=== PATIENT | female | born 1975 | race Caucasian/White ===

== ENCOUNTER 2017-07-10 09:03 | Inpatient (IN) | payer MEDICAID ==
[~2017-07-10] VITALS: Ht 167.6 cm; Wt 55.1 kg
[~2017-07-10 09:03] MED LIST: CARB-101 PO; DIPH-423 PO; HYDR-569 PO; IBUP-2264 PO; MULT-785 PO; ONDA4TAB6 PO; SERT50TA PO
[2017-07-10 09:38] LABS: BASOPHILS # (AUTO) 0.1 X10'3 (0-0.2); BASOPHILS % (AUTO) 0.9 % (0-1); EOSINOPHILS % (AUTO) 0.4 % (0-6); HEMATOCRIT 43.6 % (35.0-45.0); HEMOGLOBIN 14.7 g/dl (12.0-16.0); LYMPHOCYTES # (AUTO) 1.9 X10'3 (1.1-4.8); LYMPHOCYTES % (AUTO) 18.4 % (21-51); MEAN CORPUSCULAR HEMOGLOBIN 34.5 PG (27.0-31.0); MEAN CORPUSCULAR HGB CONC 33.8 % (33.0-36.5); MEAN PLATELET VOLUME 7.4 FL (7.4-10.4); MONOCYTES # (AUTO) 0.6 X10'3 (0-0.9); MONOCYTES % (AUTO) 5.7 % (2-12); NEUTROPHILS # (AUTO) 7.6 X10'3 (1.8-7.7); NEUTROPHILS % (AUTO) 74.6 % (42-75); PLATELET COUNT 278 X10'3 (140-440); RED BLOOD COUNT 4.27 X10'6 (4.20-5.60); RED CELL DISTRIBUTION WIDTH 14.2 % (11.5-14.5); WHITE BLOOD COUNT 10.2 X10'3 (4.5-11.0)
[2017-07-10 09:55] LABS: ALANINE AMINOTRANSFERASE 34 U/L (12-78); ALBUMIN 4.2 G/DL (3.4-5.0); ALBUMIN/GLOBULIN RATIO 1.1 (1.1-1.5); ALKALINE PHOSPHATASE 75 IU/L (46-116); AMYLASE 243 U/L (25-115); ANION GAP 11 (8-16); ASPARTATE AMINO TRANSFERASE 20 U/L (10-37); BILIRUBIN,TOTAL 0.3 MG/DL (0.1-1.0); BLOOD UREA NITROGEN 6 MG/DL (7-18); BUN/CREATININE RATIO 6.7 (6.6-38.0); CHLORIDE 100 MMOL/L (99-107); GLUCOSE 96 MG/DL (70-104); LIPASE 1371 U/L (73-393); POTASSIUM 3.6 MMOL/L (3.5-5.1); SODIUM 136 MMOL/L (135-145); TOTAL CARBON DIOXIDE 24.6 MMOL/L (24-32); TOTAL PROTEIN 7.9 G/DL (6.4-8.2); eGFR 70 ML/MIN
[2017-07-10 10:18] LABS: CLARITY,URINE Clear (Clear); COLOR,URINE Yellow (Yellow); GLUCOSE, URINE Negative (Neg); KETONES,URINE Negative (Neg); LEUKOCYTE ESTERASE ,URINE Negative (Neg); NITRITES, URINE Negative (Neg); OCCULT BLOOD,URINE Negative (Neg); PROTEIN,URINE Negative (Neg)
[2017-07-10 10:20] LABS: URINE HCG NEGATIVE (NEG)
[2017-07-10 10:24] LABS: UA COLLECTION TYPE CLN CATCH MIDSTREAM
[2017-07-10] MEDS ORDERED: ondansetron/PF 4mg/2ml inj IV ONE (10:30)
[2017-07-10] MEDS ORDERED: normal saline 1000ML IV soln IVB ONE (10:30)
[2017-07-10] MEDS ORDERED: diphenhydrAMINE 25mg capsule PO PRN (11:15)
[2017-07-10] MEDS ORDERED: acetaminophen 325mg tablet PO PRN (11:15)
[2017-07-10] MEDS ORDERED: HYDROcodone/acetaminophen 5mg/325mg tablet PO PRN (11:15)
[2017-07-10] MEDS ORDERED: magnesium hydroxide 30ml (MOM) UD suspension PO PRN (11:15)
[2017-07-10] MEDS ORDERED: potassium Cl 40MEQ/NS 500ml 500 ML IV PRN ×2 (11:15)
[2017-07-10] MEDS ORDERED: mag hydrox/Alum hydrox/simeth 30ml oral suspension PO PRN (11:15)
[2017-07-10] MEDS ORDERED: magnesium 4gm in 100ml NS 100 ML IV PRN (11:15)
[2017-07-10] MEDS ORDERED: potassium Cl 20 mEq SR tablet PO PRN ×2 (11:15)
[2017-07-10] MEDS ORDERED: magnesium 2GM in 50ml NS 50 ML IV PRN (11:15)
[2017-07-10] MEDS ORDERED: ondansetron/PF 4mg/2ml inj IV PRN (11:15)
[2017-07-10] MEDS ORDERED: magnesium Cl slow-release 64mg tablet PO PRN (11:15)
[2017-07-10] MEDS ORDERED: carBAMazepine Ext. Release 200 MG TAB.ER.12H PO SCH (13:00)
[2017-07-10 13:23] LABS: CARBAMAZEPINE (TEGRETOL) < 0.5 UG/ML (4.0-12.0)
[2017-07-10] MEDS: normal saline 1000ml 1,000 ML IV SCH ×2 (13:24→21:11)
[2017-07-10] MEDS ORDERED: LACO100T2 PO (14:02)
[2017-07-10 14:40] VITALS: BP 113/66
[2017-07-10] MEDS ORDERED: carBAMazepine 100mg chewable tablet PO SCH (14:44)
[2017-07-10] MEDS: HYDROmorphone inj. 0.5 MG/0.5 ML DISP.SYRIN IV PRN ×2 (15:57→19:49)
[2017-07-10] MEDS: heparin, porcine 5000 units/ml vial SQ SCH (19:49)
[2017-07-10 20:00] VITALS: BP 107/67
[2017-07-11] VITALS: BP 102/69
[2017-07-11] MEDS: normal saline 1000ml 1,000 ML IV SCH (02:03)
[2017-07-11] MEDS: HYDROmorphone inj. 0.5 MG/0.5 ML DISP.SYRIN IV PRN ×4 (03:38→12:18)
[2017-07-11 06:22] LABS: BASOPHILS # (AUTO) 0.1 X10'3 (0-0.2); BASOPHILS % (AUTO) 0.7 % (0-1); EOSINOPHILS % (AUTO) 0.5 % (0-6); HEMOGLOBIN 11.9 g/dl (12.0-16.0); LYMPHOCYTES % (AUTO) 24.5 % (21-51); MEAN CORPUSCULAR HEMOGLOBIN 33.6 PG (27.0-31.0); MEAN CORPUSCULAR VOLUME 101.7 FL (78-98); MEAN PLATELET VOLUME 7.7 FL (7.4-10.4); MONOCYTES # (AUTO) 0.5 X10'3 (0-0.9); MONOCYTES % (AUTO) 5.9 % (2-12); NEUTROPHILS # (AUTO) 5.5 X10'3 (1.8-7.7); NEUTROPHILS % (AUTO) 68.4 % (42-75); PLATELET COUNT 204 X10'3 (140-440); RED BLOOD COUNT 3.54 X10'6 (4.20-5.60); RED CELL DISTRIBUTION WIDTH 14.3 % (11.5-14.5)
[2017-07-11 06:57] LABS: ALANINE AMINOTRANSFERASE 27 U/L (12-78); ALBUMIN 3.2 G/DL (3.4-5.0); ALBUMIN/GLOBULIN RATIO 1.2 (1.1-1.5); ALKALINE PHOSPHATASE 48 IU/L (46-116); ANION GAP 9 (8-16); ASPARTATE AMINO TRANSFERASE 12 U/L (10-37); BILIRUBIN,TOTAL 0.3 MG/DL (0.1-1.0); BLOOD UREA NITROGEN 8 MG/DL (7-18); BUN/CREATININE RATIO 11.6 (6.6-38.0); CALCIUM 8.8 MG/DL (8.5-10.1); CHLORIDE 109 MMOL/L (99-107); CREATININE 0.69 MG/DL (0.40-0.90); GLUCOSE 93 MG/DL (70-104); POTASSIUM 4.3 MMOL/L (3.5-5.1); SODIUM 141 MMOL/L (135-145); TOTAL CARBON DIOXIDE 23.4 MMOL/L (24-32); TOTAL PROTEIN 5.9 G/DL (6.4-8.2); eGFR > 90 ML/MIN
[2017-07-11 07:00] VITALS: BP 109/73
[2017-07-11] MEDS: heparin, porcine 5000 units/ml vial SQ SCH (07:42)
[2017-07-11] MEDS ORDERED: K and/or MAG REPLACEMENT MC SCH (08:00)
[2017-07-11] MEDS ORDERED: sertraline 50mg tablet PO SCH (08:00)
[2017-07-11 09:57] LABS: LIPASE 518 U/L (73-393)
[2017-07-11 11:00] VITALS: BP 113/71
== END 2017-07-11 13:28 | disposition home or self-care (01) | DRG 282 ==
LOC: ER 09:03 → ED HOLD 11:11 → EDBEDREQ 13:55 → MED 3N 14:20
PROVIDERS: ADMIT Internal Medicine; ATTEND Emergency Medicine
DX: K85.90 Acute pancreatitis without necrosis or infection, unspecified (principal); F17.210 Nicotine dependence, cigarettes, uncomplicated; K86.1 Other chronic pancreatitis; G40.909 Epilepsy, unspecified, not intractable, without status epilepticus; F12.90 Cannabis use, unspecified, uncomplicated; G89.29 Other chronic pain; M54.9 Dorsalgia, unspecified; G43.909 Migraine, unspecified, not intractable, without status migrainosus; J45.909 Unspecified asthma, uncomplicated; Z90.710 Acquired absence of both cervix and uterus; Z56.0 Unemployment, unspecified; Z88.1 Allergy status to other antibiotic agents; Z71.6 Tobacco abuse counseling; Z79.899 Other long term (current) drug therapy
CPT/HCPCS: 36415; 76700; 80053; 80156; 81003; 81025; 82150; 83690; 83735; 85025; 87070; 96374; 99285; J1170; J1644; J2270; J2405; J7030

== ENCOUNTER 2017-07-21 13:15 | Emergency (ER) | payer MEDICAID ==
[~2017-07-21] VITALS: Ht 170.2 cm; Wt 50.9 kg
[~2017-07-21 13:15] MED LIST changes: -CARB-101 PO; +HYDR-565 PO; +LACO100T2 PO; +ONDA4TAB9 PO
[2017-07-21] MEDS ORDERED: ondansetron 4mg rapidly disintigrating tab PO ONE (14:05)
[2017-07-21] MEDS ORDERED: pantoprazole 40MG/NS 100ML BAG 100 ML IV SCH (14:18)
[2017-07-21] MEDS ORDERED: normal saline 1000ml 1,000 ML IV ONE (14:20)
[2017-07-21] MEDS ORDERED: pantoprazole 40 MG vial IV ONE (14:20)
[2017-07-21 14:28] LABS: BASOPHILS % (AUTO) 0.3 % (0-1); EOSINOPHILS % (AUTO) 0 % (0-6); HEMATOCRIT 42.4 % (35.0-45.0); HEMOGLOBIN 14.2 g/dl (12.0-16.0); LYMPHOCYTES # (AUTO) 1.3 X10'3 (1.1-4.8); LYMPHOCYTES % (AUTO) 15.1 % (21-51); MEAN CORPUSCULAR HGB CONC 33.5 % (33.0-36.5); MEAN CORPUSCULAR VOLUME 101.4 FL (78-98); MEAN PLATELET VOLUME 7.2 FL (7.4-10.4); MONOCYTES # (AUTO) 0.5 X10'3 (0-0.9); MONOCYTES % (AUTO) 5.5 % (2-12); NEUTROPHILS # (AUTO) 6.9 X10'3 (1.8-7.7); NEUTROPHILS % (AUTO) 79.1 % (42-75); PLATELET COUNT 292 X10'3 (140-440); RED BLOOD COUNT 4.18 X10'6 (4.20-5.60); RED CELL DISTRIBUTION WIDTH 14.3 % (11.5-14.5); WHITE BLOOD COUNT 8.8 X10'3 (4.5-11.0)
[2017-07-21 14:37] LABS: INR 1.1 INR; PROTHROMBIN TIME 11.1 SECONDS (9.0-12.0)
[2017-07-21 14:42] LABS: ALANINE AMINOTRANSFERASE 29 U/L (12-78); ALBUMIN 4.2 G/DL (3.4-5.0); ALBUMIN/GLOBULIN RATIO 1.4 (1.1-1.5); ALKALINE PHOSPHATASE 66 IU/L (46-116); ANION GAP 11 (8-16); ASPARTATE AMINO TRANSFERASE 17 U/L (10-37); BILIRUBIN,TOTAL 0.4 MG/DL (0.1-1.0); BLOOD UREA NITROGEN 7 MG/DL (7-18); BUN/CREATININE RATIO 8.8 (6.6-38.0); CALCIUM 9.4 MG/DL (8.5-10.1); CHLORIDE 110 MMOL/L (99-107); GLUCOSE 101 MG/DL (70-104); POTASSIUM 3.8 MMOL/L (3.5-5.1); SODIUM 145 MMOL/L (135-145); TOTAL PROTEIN 7.2 G/DL (6.4-8.2); eGFR 80 ML/MIN
[2017-07-21] MEDS ORDERED: HYDROmorphone 1 mg/ml syringe IV ONE ×2 (14:45→15:25)
[2017-07-21] MEDS ORDERED: ondansetron/PF 4mg/2ml inj IV ONE (15:30)
[2017-07-21 15:59] LABS: LIPASE 124 U/L (73-393)
[2017-07-21 16:43] LABS: OCCULT BLOOD STOOL NEGATIVE (Neg)
[2017-07-21 16:51] VITALS: BP 127/70
[2017-07-21 16:56] LABS: CLARITY,URINE Clear (Clear); COLOR,URINE Yellow (Yellow); GLUCOSE, URINE Negative (Neg); KETONES,URINE 80 mg/dl (Neg); LEUKOCYTE ESTERASE ,URINE Trace (Neg); NITRITES, URINE Negative (Neg); OCCULT BLOOD,URINE Negative (Neg); PROTEIN,URINE Negative (Neg)
[2017-07-21 17:15] LABS: UA COLLECTION TYPE CLN CATCH MIDSTREAM
[2017-07-21 17:17] LABS: BACTERIA,URINE NONE SEEN /HPF (Neg); MUCUS STRANDS FEW /LPF (Neg); RBC,URINE 0-2 /HPF (0-2); SQUAMOUS EPITHELIAL CELL,UR FEW /LPF (FEW); WBC,URINE 0-4 /HPF (0-4)
== END 2017-07-21 16:56 | disposition left against medical advice (07) ==
LOC: ER 13:17
DX: K92.0 Hematemesis (principal); J45.909 Unspecified asthma, uncomplicated; G89.29 Other chronic pain; G43.909 Migraine, unspecified, not intractable, without status migrainosus; F12.10 Cannabis abuse, uncomplicated; Z76.5 Malingerer [conscious simulation]; Z90.710 Acquired absence of both cervix and uterus; Z56.0 Unemployment, unspecified; Z79.899 Other long term (current) drug therapy
CPT/HCPCS: 36415; 80053; 81001; 82272; 83690; 85025; 85610; 87088; 96365; 96375; 96376; 99284; C9113; J1170; J2405; J7030

== ENCOUNTER 2017-11-06 16:03 | Emergency (ER) | payer MEDICAID ==
[~2017-11-06] VITALS: Ht 167.6 cm; Wt 55.0 kg
[~2017-11-06 16:03] MED LIST changes: -DIPH-423 PO; -HYDR-565 PO; -HYDR-569 PO; -ONDA4TAB9 PO
[2017-11-06 16:52] LABS: BASOPHILS # (AUTO) 0.1 X10'3 (0-0.2); BASOPHILS % (AUTO) 0.5 % (0-1); EOSINOPHILS # (AUTO) 0.1 X10'3 (0-0.9); EOSINOPHILS % (AUTO) 1.3 % (0-6); HEMATOCRIT 37.5 % (35.0-45.0); LYMPHOCYTES # (AUTO) 2.4 X10'3 (1.1-4.8); MEAN CORPUSCULAR HEMOGLOBIN 34.6 PG (27.0-31.0); MEAN CORPUSCULAR HGB CONC 34.7 % (33.0-36.5); MEAN CORPUSCULAR VOLUME 99.5 FL (78-98); MEAN PLATELET VOLUME 7.3 FL (7.4-10.4); MONOCYTES # (AUTO) 0.5 X10'3 (0-0.9); MONOCYTES % (AUTO) 5.7 % (2-12); NEUTROPHILS # (AUTO) 6.4 X10'3 (1.8-7.7); NEUTROPHILS % (AUTO) 67.5 % (42-75); PLATELET COUNT 319 X10'3 (140-440); RED BLOOD COUNT 3.77 X10'6 (4.20-5.60); RED CELL DISTRIBUTION WIDTH 13.6 % (11.5-14.5); WHITE BLOOD COUNT 9.4 X10'3 (4.5-11.0)
[2017-11-06 16:59] LABS: CLARITY,URINE SLIGHTLY CLOUDY (Clear); COLOR,URINE STRAW (Yellow); GLUCOSE, URINE NEGATIVE (Neg); KETONES,URINE NEGATIVE (Neg); LEUKOCYTE ESTERASE ,URINE NEGATIVE (Neg); NITRITES, URINE NEGATIVE (Neg); OCCULT BLOOD,URINE NEGATIVE (Neg); PROTEIN,URINE NEGATIVE (Neg); UROBILINOGEN,URINE 0.2 E.U/dL (0.2-1.0)
[2017-11-06 17:00] LABS: PROTHROMBIN TIME 10.5 SECONDS (9.0-12.0)
[2017-11-06 17:03] LABS: UA COLLECTION TYPE CLN CATCH MIDSTREAM
[2017-11-06 17:06] LABS: MUCUS STRANDS NONE SEEN /LPF (Neg); SQUAMOUS EPITHELIAL CELL,UR MANY /LPF (FEW)
[2017-11-06 17:07] LABS: BACTERIA,URINE 1+ /HPF (Neg); RBC,URINE NONE SEEN /HPF (0-2); WBC,URINE 0-4 /HPF (0-4)
[2017-11-06 17:07] LABS: ALANINE AMINOTRANSFERASE 23 U/L (12-78); ALBUMIN 3.8 G/DL (3.4-5.0); ALBUMIN/GLOBULIN RATIO 1.1 (1.1-1.5); ALKALINE PHOSPHATASE 74 IU/L (46-116); ANION GAP 8 (8-16); ASPARTATE AMINO TRANSFERASE 14 U/L (10-37); BILIRUBIN,TOTAL 0.3 MG/DL (0.1-1.0); BLOOD UREA NITROGEN 7 MG/DL (7-18); BUN/CREATININE RATIO 9.2 (6.6-38.0); CALCIUM 9.2 MG/DL (8.5-10.1); CHLORIDE 99 MMOL/L (99-107); CREATININE 0.76 MG/DL (0.40-0.90); GLUCOSE 89 MG/DL (70-104); LIPASE 544 U/L (73-393); POTASSIUM 3.6 MMOL/L (3.5-5.1); SODIUM 136 MMOL/L (135-145); TOTAL CARBON DIOXIDE 29.5 MMOL/L (24-32); TOTAL PROTEIN 7.2 G/DL (6.4-8.2); eGFR 85 ML/MIN
[2017-11-06] MEDS ORDERED: morphine 4 MG/ML inj SYRINge IV ONE ×2 (18:15→19:05)
[2017-11-06] MEDS ORDERED: ondansetron/PF 4mg/2ml inj IV ONE (18:15)
[2017-11-06] MEDS ORDERED: proCHLORperazine 10 MG/2 ml inj IV ONE (18:15)
[2017-11-06] MEDS ORDERED: normal saline 1000ML IV soln IVB ONE (18:15)
[2017-11-06] MEDS ORDERED: diphenhydrAMINE 50 mg/ml inj IV ONE (18:15)
[2017-11-06] MEDS ORDERED: pantoprazole 40 MG vial IV ONE (18:15)
[2017-11-06 20:09] VITALS: BP 108/65
== END 2017-11-06 20:17 | disposition home or self-care (01) ==
LOC: ER 16:03
DX: K85.90 Acute pancreatitis without necrosis or infection, unspecified (principal); R10.12 Left upper quadrant pain; R11.2 Nausea with vomiting, unspecified; E86.0 Dehydration; F17.200 Nicotine dependence, unspecified, uncomplicated; F12.10 Cannabis abuse, uncomplicated; G89.29 Other chronic pain; J45.909 Unspecified asthma, uncomplicated; G43.909 Migraine, unspecified, not intractable, without status migrainosus; Z90.710 Acquired absence of both cervix and uterus; Z79.899 Other long term (current) drug therapy; Z56.0 Unemployment, unspecified
CPT/HCPCS: 36415; 80053; 81001; 83690; 84484; 85025; 85610; 93005; 96361; 96374; 96375; 96376; 99285; C9113; J0780; J1200; J2270; J2405; J7030

== ENCOUNTER 2017-11-09 09:44 | Emergency (ER) | payer MEDICAID ==
[~2017-11-09] VITALS: Ht 167.6 cm; Wt 56.0 kg
[2017-11-09 10:07] LABS: CLARITY,URINE CLEAR (Clear); COLOR,URINE STRAW (Yellow); GLUCOSE, URINE NEGATIVE (Neg); KETONES,URINE NEGATIVE (Neg); LEUKOCYTE ESTERASE ,URINE NEGATIVE (Neg); NITRITES, URINE NEGATIVE (Neg); OCCULT BLOOD,URINE NEGATIVE (Neg); PH,URINE 5.5 (4.8-8.0); PROTEIN,URINE NEGATIVE (Neg); UA COLLECTION TYPE CLN CATCH MIDSTREAM; UROBILINOGEN,URINE 0.2 E.U/dL (0.2-1.0)
[2017-11-09 10:12] LABS: BASOPHILS # (AUTO) 0.1 X10'3 (0-0.2); BASOPHILS % (AUTO) 0.7 % (0-1); EOSINOPHILS % (AUTO) 0.4 % (0-6); HEMATOCRIT 40.5 % (35.0-45.0); HEMOGLOBIN 13.8 g/dl (12.0-16.0); MEAN CORPUSCULAR HEMOGLOBIN 34.4 PG (27.0-31.0); MEAN CORPUSCULAR HGB CONC 34.1 % (33.0-36.5); MEAN CORPUSCULAR VOLUME 100.9 FL (78-98); MEAN PLATELET VOLUME 7.1 FL (7.4-10.4); MONOCYTES # (AUTO) 0.4 X10'3 (0-0.9); MONOCYTES % (AUTO) 4.2 % (2-12); NEUTROPHILS # (AUTO) 8.1 X10'3 (1.8-7.7); NEUTROPHILS % (AUTO) 75.7 % (42-75); PLATELET COUNT 323 X10'3 (140-440); RED BLOOD COUNT 4.01 X10'6 (4.20-5.60); WHITE BLOOD COUNT 10.7 X10'3 (4.5-11.0)
[2017-11-09 10:21] LABS: INR 1.1 INR; PROTHROMBIN TIME 11.2 SECONDS (9.0-12.0)
[2017-11-09 10:26] LABS: ALANINE AMINOTRANSFERASE 33 U/L (12-78); ALBUMIN 4.6 G/DL (3.4-5.0); ALBUMIN/GLOBULIN RATIO 1.4 (1.1-1.5); ALKALINE PHOSPHATASE 79 IU/L (46-116); ANION GAP 11 (8-16); ASPARTATE AMINO TRANSFERASE 22 U/L (10-37); BILIRUBIN,TOTAL 0.3 MG/DL (0.1-1.0); BLOOD UREA NITROGEN 5 MG/DL (7-18); CALCIUM 9.7 MG/DL (8.5-10.1); CHLORIDE 99 MMOL/L (99-107); CREATININE 0.83 MG/DL (0.40-0.90); GLUCOSE 88 MG/DL (70-104); POTASSIUM 3.5 MMOL/L (3.5-5.1); SODIUM 138 MMOL/L (135-145); TOTAL CARBON DIOXIDE 28.5 MMOL/L (24-32); TOTAL PROTEIN 7.9 G/DL (6.4-8.2); eGFR 77 ML/MIN
[2017-11-09 10:43] LABS: LIPASE 627 U/L (73-393)
[2017-11-09] MEDS ORDERED: ondansetron/PF 4mg/2ml inj IV ONE ×2 (10:55→13:25)
[2017-11-09] MEDS ORDERED: normal saline 1000ML IV soln IVB ONE (10:55)
[2017-11-09] MEDS ORDERED: morphine 4 MG/ML inj SYRINge IV ONE ×3 (10:55→13:25)
[2017-11-09] MEDS ORDERED: ONDA8TAB6 PO (13:20)
[2017-11-09] MEDS ORDERED: HYDR-3965 PO (13:20)
[2017-11-09 13:51] VITALS: BP 110/89
== END 2017-11-09 13:54 | disposition home or self-care (01) ==
LOC: ER 09:44
DX: K85.90 Acute pancreatitis without necrosis or infection, unspecified (principal); G43.909 Migraine, unspecified, not intractable, without status migrainosus; J45.909 Unspecified asthma, uncomplicated; G89.29 Other chronic pain; F12.10 Cannabis abuse, uncomplicated; Z90.710 Acquired absence of both cervix and uterus; Z56.0 Unemployment, unspecified; Z88.8 Allergy status to other drugs, medicaments and biological substances; Z79.899 Other long term (current) drug therapy
CPT/HCPCS: 36415; 80053; 81003; 83690; 85025; 85610; 96361; 96374; 96375; 96376; 99285; J2270; J2405; J7030

== ENCOUNTER → 2017-11-30 | Emergency (ER) | payer MEDICAID ==
[~2017-11-30] VITALS: Ht 167.6 cm; Wt 56.6 kg
[~2017-11-30] MED LIST changes: +HYDR-3965 PO; +HYDROmorphone 1 mg/ml syringe IV ONE; +NAPR-56 PO; +ONDA8TAB6 PO; +ketorolac trometh. 30mg/ml inj. IV ONE; +morphine 4 MG/ML inj SYRINge IV ONE; +normal saline 1000ML IV soln IVB ONE; +ondansetron/PF 4mg/2ml inj IV ONE
[2017-11-30 16:00] LABS: BASOPHILS # (AUTO) 0.1 X10'3 (0-0.2); BASOPHILS % (AUTO) 0.8 % (0-1); EOSINOPHILS # (AUTO) 0.1 X10'3 (0-0.9); EOSINOPHILS % (AUTO) 0.7 % (0-6); HEMATOCRIT 37.1 % (35.0-45.0); HEMOGLOBIN 12.6 g/dl (12.0-16.0); LYMPHOCYTES # (AUTO) 2.3 X10'3 (1.1-4.8); LYMPHOCYTES % (AUTO) 25.2 % (21-51); MEAN CORPUSCULAR HEMOGLOBIN 34.2 PG (27.0-31.0); MEAN CORPUSCULAR VOLUME 100.8 FL (78-98); MEAN PLATELET VOLUME 7.4 FL (7.4-10.4); MONOCYTES # (AUTO) 0.5 X10'3 (0-0.9); MONOCYTES % (AUTO) 5.2 % (2-12); NEUTROPHILS # (AUTO) 6.3 X10'3 (1.8-7.7); NEUTROPHILS % (AUTO) 68.1 % (42-75); PLATELET COUNT 230 X10'3 (140-440); RED BLOOD COUNT 3.68 X10'6 (4.20-5.60); RED CELL DISTRIBUTION WIDTH 13.9 % (11.5-14.5); WHITE BLOOD COUNT 9.3 X10'3 (4.5-11.0)
[2017-11-30 16:09] LABS: URINE HCG NEGATIVE (NEG)
[2017-11-30 16:10] LABS: CLARITY,URINE CLEAR (Clear); COLOR,URINE STRAW (Yellow); GLUCOSE, URINE NEGATIVE (Neg); KETONES,URINE NEGATIVE (Neg); LEUKOCYTE ESTERASE ,URINE NEGATIVE (Neg); NITRITES, URINE NEGATIVE (Neg); OCCULT BLOOD,URINE NEGATIVE (Neg); PH,URINE 5.5 (4.8-8.0); PROTEIN,URINE NEGATIVE (Neg); UA COLLECTION TYPE CLN CATCH MIDSTREAM; UROBILINOGEN,URINE 0.2 E.U/dL (0.2-1.0)
[2017-11-30 16:14] LABS: ALANINE AMINOTRANSFERASE 20 U/L (12-78); ALBUMIN 3.6 G/DL (3.4-5.0); ALBUMIN/GLOBULIN RATIO 1.1 (1.1-1.5); ALKALINE PHOSPHATASE 80 IU/L (46-116); ANION GAP 7 (8-16); ASPARTATE AMINO TRANSFERASE 14 U/L (10-37); BILIRUBIN,TOTAL 0.3 MG/DL (0.1-1.0); BLOOD UREA NITROGEN 6 MG/DL (7-18); BUN/CREATININE RATIO 7.9 (6.6-38.0); CALCIUM 8.9 MG/DL (8.5-10.1); CHLORIDE 105 MMOL/L (99-107); CREATININE 0.76 MG/DL (0.40-0.90); GLUCOSE 81 MG/DL (70-104); LIPASE 346 U/L (73-393); SODIUM 137 MMOL/L (135-145); TOTAL CARBON DIOXIDE 25.1 MMOL/L (24-32); TOTAL PROTEIN 6.9 G/DL (6.4-8.2); eGFR 85 ML/MIN
[2017-11-30 17:10] VITALS: BP 113/68
== END | disposition home or self-care (01) ==
LOC: ER 15:34
DX: R10.12 Left upper quadrant pain (principal); K86.1 Other chronic pancreatitis; G43.909 Migraine, unspecified, not intractable, without status migrainosus; J45.909 Unspecified asthma, uncomplicated; M54.9 Dorsalgia, unspecified; F12.90 Cannabis use, unspecified, uncomplicated; Z90.710 Acquired absence of both cervix and uterus; Z56.0 Unemployment, unspecified; Z88.8 Allergy status to other drugs, medicaments and biological substances; Z79.899 Other long term (current) drug therapy
CPT/HCPCS: 36415; 80053; 81003; 81025; 82948; 83690; 85025; 93005; 96374; 96375; 99285; J1170; J1885; J2270; J7030

== ENCOUNTER 2018-01-02 13:50 | Emergency (ER) | payer MEDICAID ==
[~2018-01-02] VITALS: Ht 167.6 cm; Wt 58.9 kg
[~2018-01-02 13:50] MED LIST changes: -HYDR-3965 PO; -HYDROmorphone 1 mg/ml syringe IV ONE; -NAPR-56 PO; -ketorolac trometh. 30mg/ml inj. IV ONE; -morphine 4 MG/ML inj SYRINge IV ONE; -normal saline 1000ML IV soln IVB ONE; -ondansetron/PF 4mg/2ml inj IV ONE
[2018-01-02 14:16] LABS: BASOPHILS # (AUTO) 0.1 X10'3 (0-0.2); BASOPHILS % (AUTO) 0.7 % (0-1); EOSINOPHILS # (AUTO) 0.1 X10'3 (0-0.9); HEMATOCRIT 38.1 % (35.0-45.0); HEMOGLOBIN 13.3 g/dl (12.0-16.0); LYMPHOCYTES # (AUTO) 2.3 X10'3 (1.1-4.8); LYMPHOCYTES % (AUTO) 21.8 % (21-51); MEAN CORPUSCULAR HEMOGLOBIN 34.8 PG (27.0-31.0); MEAN CORPUSCULAR HGB CONC 34.7 % (33.0-36.5); MEAN CORPUSCULAR VOLUME 100.1 FL (78-98); MEAN PLATELET VOLUME 7.3 FL (7.4-10.4); MONOCYTES # (AUTO) 0.7 X10'3 (0-0.9); MONOCYTES % (AUTO) 6.6 % (2-12); NEUTROPHILS # (AUTO) 7.3 X10'3 (1.8-7.7); NEUTROPHILS % (AUTO) 69.9 % (42-75); PLATELET COUNT 258 X10'3 (140-440); RED BLOOD COUNT 3.81 X10'6 (4.20-5.60); RED CELL DISTRIBUTION WIDTH 14.5 % (11.5-14.5); WHITE BLOOD COUNT 10.4 X10'3 (4.5-11.0)
[2018-01-02 14:19] LABS: URINE HCG NEGATIVE (NEG)
[2018-01-02 14:23] LABS: INR 1.1 INR
[2018-01-02 14:28] LABS: ALANINE AMINOTRANSFERASE 31 U/L (12-78); ALBUMIN 3.6 G/DL (3.4-5.0); ALBUMIN/GLOBULIN RATIO 1.2 (1.1-1.5); ALKALINE PHOSPHATASE 89 IU/L (46-116); AMYLASE 158 U/L (25-115); ANION GAP 6 (8-16); ASPARTATE AMINO TRANSFERASE 21 U/L (10-37); BILIRUBIN,TOTAL 0.3 MG/DL (0.1-1.0); BLOOD UREA NITROGEN 10 MG/DL (7-18); BUN/CREATININE RATIO 11.4 (6.6-38.0); CALCIUM 8.4 MG/DL (8.5-10.1); CHLORIDE 102 MMOL/L (99-107); CREATININE 0.88 MG/DL (0.40-0.90); GLUCOSE 92 MG/DL (70-104); LIPASE 561 U/L (73-393); POTASSIUM 4.4 MMOL/L (3.5-5.1); SODIUM 135 MMOL/L (135-145); TOTAL CARBON DIOXIDE 26.8 MMOL/L (24-32); TOTAL PROTEIN 6.7 G/DL (6.4-8.2); eGFR 71 ML/MIN
[2018-01-02 14:29] LABS: HCG SERUM QL NEGATIVE
[2018-01-02 14:29] LABS: CLARITY,URINE CLEAR (Clear); COLOR,URINE STRAW (Yellow); GLUCOSE, URINE NEGATIVE (Neg); KETONES,URINE NEGATIVE (Neg); LEUKOCYTE ESTERASE ,URINE NEGATIVE (Neg); NITRITES, URINE NEGATIVE (Neg); OCCULT BLOOD,URINE NEGATIVE (Neg); PH,URINE 6.5 (4.8-8.0); PROTEIN,URINE NEGATIVE (Neg); UROBILINOGEN,URINE 0.2 E.U/dL (0.2-1.0)
[2018-01-02 14:35] LABS: UA COLLECTION TYPE CLN CATCH MIDSTREAM
[2018-01-02] MEDS ORDERED: morphine 4 MG/ML inj SYRINge IV PRN (14:50)
[2018-01-02] MEDS ORDERED: ketorolac trometh. 30mg/ml inj. IV ONE (14:50)
[2018-01-02] MEDS ORDERED: normal saline 1000ML IV soln IVB ONE (14:50)
[2018-01-02] MEDS ORDERED: ondansetron/PF 4mg/2ml inj IV ONE (14:50)
[2018-01-02 15:33] VITALS: BP 100/55
[2018-01-02] MEDS ORDERED: fentaNYL/PF 50MCG/1 ML 2ML syringe IV ONE (15:50)
[2018-01-03] MEDS ORDERED: CYCL-1 PO (10:26)
== END 2018-01-02 16:03 | disposition home or self-care (01) ==
LOC: ER 13:50
DX: K85.90 Acute pancreatitis without necrosis or infection, unspecified (principal); G43.909 Migraine, unspecified, not intractable, without status migrainosus; F12.90 Cannabis use, unspecified, uncomplicated; J45.909 Unspecified asthma, uncomplicated; Z90.710 Acquired absence of both cervix and uterus; Z56.0 Unemployment, unspecified; Z88.1 Allergy status to other antibiotic agents; Z79.899 Other long term (current) drug therapy
CPT/HCPCS: 36415; 80053; 81003; 81025; 82150; 83690; 84703; 85025; 85610; 93005; 96361; 96374; 96375; 99285; J1885; J2270; J2405; J3010; J7030

== ENCOUNTER 2018-01-13 09:22 | Emergency (ER) | payer OTHER, MEDICAID ==
[~2018-01-13] VITALS: Ht 167.6 cm; Wt 57.0 kg
[~2018-01-13 09:22] MED LIST changes: +CYCL-1 PO
[2018-01-13] MEDS ORDERED: ACET-3067 PO (11:14)
[2018-01-13 12:15] VITALS: BP 126/66
== END 2018-01-13 12:17 | disposition home or self-care (01) ==
LOC: ER 09:23
DX: M62.838 Other muscle spasm (principal); M25.512 Pain in left shoulder; R07.89 Other chest pain; R42 Dizziness and giddiness; G43.909 Migraine, unspecified, not intractable, without status migrainosus; J45.909 Unspecified asthma, uncomplicated; G89.29 Other chronic pain; F12.90 Cannabis use, unspecified, uncomplicated; Z90.710 Acquired absence of both cervix and uterus; Z56.0 Unemployment, unspecified; Z88.1 Allergy status to other antibiotic agents; Z79.899 Other long term (current) drug therapy
CPT/HCPCS: 71045; 93005; 99284

== ENCOUNTER 2018-01-13 17:38 | Emergency (ER) | payer MEDICAID, OTHER ==
[~2018-01-13] VITALS: Ht 167.6 cm; Wt 56.0 kg
[~2018-01-13 17:38] MED LIST changes: +ACET-3067 PO
[2018-01-13 17:58] VITALS: BP 107/64
== END 2018-01-13 19:02 | disposition home or self-care (01) ==
LOC: ER 17:38
DX: R56.9 Unspecified convulsions (principal); G89.29 Other chronic pain; R20.2 Paresthesia of skin; G43.909 Migraine, unspecified, not intractable, without status migrainosus; J45.909 Unspecified asthma, uncomplicated; F12.90 Cannabis use, unspecified, uncomplicated; F17.210 Nicotine dependence, cigarettes, uncomplicated; Z90.710 Acquired absence of both cervix and uterus; Z56.0 Unemployment, unspecified; Z88.1 Allergy status to other antibiotic agents; Z79.899 Other long term (current) drug therapy
CPT/HCPCS: 99281

== ENCOUNTER 2018-01-30 18:25 | Emergency (ER) | payer MEDICAID ==
[~2018-01-30] VITALS: Ht 167.6 cm; Wt 54.9 kg
[~2018-01-30 18:25] MED LIST changes: -ACET-3067 PO
[2018-01-30 19:15] LABS: BASOPHILS # (AUTO) 0.1 X10'3 (0-0.2); BASOPHILS % (AUTO) 0.5 % (0-1); EOSINOPHILS # (AUTO) 0.1 X10'3 (0-0.9); EOSINOPHILS % (AUTO) 0.6 % (0-6); HEMATOCRIT 40.5 % (35.0-45.0); HEMOGLOBIN 14.1 g/dl (12.0-16.0); LYMPHOCYTES # (AUTO) 3.2 X10'3 (1.1-4.8); LYMPHOCYTES % (AUTO) 32.5 % (21-51); MEAN CORPUSCULAR HEMOGLOBIN 34.4 PG (27.0-31.0); MEAN CORPUSCULAR HGB CONC 34.8 % (33.0-36.5); MEAN CORPUSCULAR VOLUME 98.9 FL (78-98); MEAN PLATELET VOLUME 7.1 FL (7.4-10.4); MONOCYTES # (AUTO) 0.6 X10'3 (0-0.9); MONOCYTES % (AUTO) 5.8 % (2-12); NEUTROPHILS % (AUTO) 60.6 % (42-75); PLATELET COUNT 261 X10'3 (140-440); RED CELL DISTRIBUTION WIDTH 13.8 % (11.5-14.5); WHITE BLOOD COUNT 9.9 X10'3 (4.5-11.0)
[2018-01-30 19:26] LABS: INR 1.1 INR; PROTHROMBIN TIME 10.9 SECONDS (9.0-12.0)
[2018-01-30 19:30] LABS: ALANINE AMINOTRANSFERASE 28 U/L (12-78); ALBUMIN 4.2 G/DL (3.4-5.0); ALBUMIN/GLOBULIN RATIO 1.2 (1.1-1.5); ALKALINE PHOSPHATASE 76 IU/L (46-116); ANION GAP 9 (8-16); ASPARTATE AMINO TRANSFERASE 18 U/L (10-37); BILIRUBIN,TOTAL 0.2 MG/DL (0.1-1.0); BLOOD UREA NITROGEN 10 MG/DL (7-18); BUN/CREATININE RATIO 9.7 (6.6-38.0); CALCIUM 9.4 MG/DL (8.5-10.1); CHLORIDE 100 MMOL/L (99-107); CREATININE 1.03 MG/DL (0.40-0.90); GLUCOSE 69 MG/DL (70-104); POTASSIUM 3.5 MMOL/L (3.5-5.1); SODIUM 136 MMOL/L (135-145); TOTAL PROTEIN 7.7 G/DL (6.4-8.2); eGFR 59 ML/MIN
[2018-01-30] MEDS ORDERED: normal saline 1000ML IV soln IVB ONE (19:30)
[2018-01-30] MEDS ORDERED: proCHLORperazine 10 MG/2 ml inj IV ONE (19:30)
[2018-01-30] MEDS ORDERED: ketorolac trometh. 30mg/ml inj. IV ONE (19:30)
[2018-01-30 19:32] LABS: CLARITY,URINE CLEAR (Clear); COLOR,URINE STRAW (Yellow); GLUCOSE, URINE NEGATIVE (Neg); KETONES,URINE NEGATIVE (Neg); LEUKOCYTE ESTERASE ,URINE NEGATIVE (Neg); NITRITES, URINE NEGATIVE (Neg); OCCULT BLOOD,URINE NEGATIVE (Neg); PH,URINE 5.5 (4.8-8.0); PROTEIN,URINE NEGATIVE (Neg); UROBILINOGEN,URINE 0.2 E.U/dL (0.2-1.0)
[2018-01-30 19:33] LABS: URINE HCG NEGATIVE (NEG)
[2018-01-30] MEDS ORDERED: famotidine/PF 10 mg/ml inj IV ONE (19:35)
[2018-01-30 19:55] LABS: UA COLLECTION TYPE CLN CATCH MIDSTREAM
[2018-01-30] MEDS: morphine 4 MG/ML inj SYRINge IV PRN ×2 (20:06→20:33)
[2018-01-30 20:47] VITALS: BP 103/70
== END 2018-01-30 20:48 | disposition home or self-care (01) ==
LOC: ER 18:26
DX: K86.1 Other chronic pancreatitis (principal); E86.0 Dehydration; G43.909 Migraine, unspecified, not intractable, without status migrainosus; J45.909 Unspecified asthma, uncomplicated; G89.29 Other chronic pain; Z90.710 Acquired absence of both cervix and uterus; F12.90 Cannabis use, unspecified, uncomplicated; Z88.1 Allergy status to other antibiotic agents; Z79.899 Other long term (current) drug therapy; Z56.0 Unemployment, unspecified
CPT/HCPCS: 36415; 80053; 81003; 81025; 85025; 85610; 96361; 96374; 96375; 99284; J0780; J1885; J2270; J3490; J7030

== ENCOUNTER 2018-02-22 16:56 | Emergency (ER) | payer MEDICAID ==
[~2018-02-22] VITALS: Ht 167.6 cm; Wt 55.0 kg
[2018-02-22 17:36] LABS: CLARITY,URINE CLEAR (Clear); COLOR,URINE YELLOW (Yellow); GLUCOSE, URINE NEGATIVE (Neg); KETONES,URINE NEGATIVE (Neg); LEUKOCYTE ESTERASE ,URINE NEGATIVE (Neg); NITRITES, URINE NEGATIVE (Neg); OCCULT BLOOD,URINE NEGATIVE (Neg); PROTEIN,URINE NEGATIVE (Neg); UROBILINOGEN,URINE 0.2 E.U/dL (0.2-1.0)
[2018-02-22 17:37] LABS: UA COLLECTION TYPE CLN CATCH MIDSTREAM; URINE HCG NEGATIVE (NEG)
[2018-02-22 17:40] LABS: BASOPHILS # (AUTO) 0.1 X10'3 (0-0.2); BASOPHILS % (AUTO) 1.1 % (0-1); EOSINOPHILS # (AUTO) 0.1 X10'3 (0-0.9); EOSINOPHILS % (AUTO) 1.1 % (0-6); HEMATOCRIT 42.8 % (35.0-45.0); HEMOGLOBIN 14.5 g/dl (12.0-16.0); INR 1.1 INR; LYMPHOCYTES # (AUTO) 3.1 X10'3 (1.1-4.8); MEAN CORPUSCULAR HEMOGLOBIN 33.8 PG (27.0-31.0); MEAN CORPUSCULAR HGB CONC 33.8 % (33.0-36.5); MEAN CORPUSCULAR VOLUME 99.9 FL (78-98); MEAN PLATELET VOLUME 7.7 FL (7.4-10.4); MONOCYTES # (AUTO) 0.6 X10'3 (0-0.9); MONOCYTES % (AUTO) 6.8 % (2-12); NEUTROPHILS # (AUTO) 5.4 X10'3 (1.8-7.7); PLATELET COUNT 245 X10'3 (140-440); PROTHROMBIN TIME 10.9 SECONDS (9.0-12.0); RED BLOOD COUNT 4.28 X10'6 (4.20-5.60); WHITE BLOOD COUNT 9.4 X10'3 (4.5-11.0)
[2018-02-22] MEDS ORDERED: morphine 4 MG/ML inj SYRINge IV ONE ×2 (17:45→19:40)
[2018-02-22] MEDS ORDERED: famotidine/PF 10 mg/ml inj IV ONE (17:45)
[2018-02-22] MEDS ORDERED: normal saline 1000ML IV soln IVB ONE ×2 (17:45)
[2018-02-22] MEDS ORDERED: proCHLORperazine 10 MG/2 ml inj IV ONE (17:45)
[2018-02-22 17:48] LABS: ALANINE AMINOTRANSFERASE 26 U/L (12-78); ALBUMIN/GLOBULIN RATIO 1.2 (1.1-1.5); ALKALINE PHOSPHATASE 86 IU/L (46-116); ANION GAP 8 (8-16); ASPARTATE AMINO TRANSFERASE 19 U/L (10-37); BILIRUBIN,TOTAL 0.2 MG/DL (0.1-1.0); BLOOD UREA NITROGEN 7 MG/DL (7-18); BUN/CREATININE RATIO 7.8 (6.6-38.0); CALCIUM 9.4 MG/DL (8.5-10.1); CHLORIDE 98 MMOL/L (99-107); GLUCOSE 87 MG/DL (70-104); LIPASE 190 U/L (73-393); POTASSIUM 3.8 MMOL/L (3.5-5.1); SODIUM 133 MMOL/L (135-145); TOTAL CARBON DIOXIDE 26.7 MMOL/L (24-32); TOTAL PROTEIN 7.3 G/DL (6.4-8.2); eGFR 69 ML/MIN
[2018-02-22 17:50] LABS: HCG SERUM QL NEGATIVE
[2018-02-22 19:55] VITALS: BP 124/94
== END 2018-02-22 19:56 | disposition home or self-care (01) ==
LOC: ER 16:57
DX: K86.1 Other chronic pancreatitis (principal); R10.13 Epigastric pain; R10.12 Left upper quadrant pain; G43.909 Migraine, unspecified, not intractable, without status migrainosus; J45.909 Unspecified asthma, uncomplicated; F17.200 Nicotine dependence, unspecified, uncomplicated; F12.90 Cannabis use, unspecified, uncomplicated; Z56.0 Unemployment, unspecified; Z90.710 Acquired absence of both cervix and uterus; Z88.1 Allergy status to other antibiotic agents; Z79.899 Other long term (current) drug therapy
CPT/HCPCS: 36415; 80053; 81003; 81025; 83690; 84703; 85025; 85610; 96361; 96374; 96375; 99284; J0780; J2270; J3490; J7030

== ENCOUNTER 2018-05-13 18:04 | Emergency (ER) | payer MEDICAID ==
[~2018-05-13] VITALS: Ht 167.6 cm; Wt 54.5 kg
[2018-05-13 18:18] VITALS: BP 137/74
[2018-05-13 19:13] LABS: AMYLASE 56 U/L (25-115); LIPASE 115 U/L (73-393)
== END 2018-05-13 19:40 | disposition home or self-care (01) ==
LOC: ER 18:05
DX: K86.1 Other chronic pancreatitis (principal); J45.909 Unspecified asthma, uncomplicated; F12.90 Cannabis use, unspecified, uncomplicated; Z86.69 Personal history of other diseases of the nervous system and sense organs; Z90.710 Acquired absence of both cervix and uterus; Z56.0 Unemployment, unspecified; Z88.1 Allergy status to other antibiotic agents; Z79.899 Other long term (current) drug therapy
CPT/HCPCS: 36415; 82150; 83690; 99284

== ENCOUNTER 2018-06-26 11:03 | Emergency (ER) | payer MEDICAID ==
[~2018-06-26] VITALS: Ht 167.6 cm; Wt 56.8 kg
[2018-06-26] MEDS ORDERED: ondansetron/PF 4mg/2ml inj IV ONE (11:25)
[2018-06-26] MEDS ORDERED: HYDROmorphone 1 mg/ml syringe IV ONE (11:25)
[2018-06-26] MEDS ORDERED: normal saline 1000ML IV soln IVB ONE (11:25)
[2018-06-26] MEDS ORDERED: ketorolac trometh. 30mg/ml inj. IV ONE (11:25)
[2018-06-26 11:27] LABS: CLARITY,URINE CLEAR (Clear); COLOR,URINE YELLOW (Yellow); GLUCOSE, URINE NEGATIVE (Neg); KETONES,URINE NEGATIVE (Neg); LEUKOCYTE ESTERASE ,URINE NEGATIVE (Neg); NITRITES, URINE NEGATIVE (Neg); OCCULT BLOOD,URINE NEGATIVE (Neg); PROTEIN,URINE NEGATIVE (Neg); UROBILINOGEN,URINE 0.2 E.U/dL (0.2-1.0)
[2018-06-26 11:28] LABS: UA COLLECTION TYPE CLN CATCH MIDSTREAM
[2018-06-26 11:48] LABS: BASOPHILS # (AUTO) 0.1 X10'3 (0-0.2); EOSINOPHILS # (AUTO) 0.1 X10'3 (0-0.9); EOSINOPHILS % (AUTO) 0.8 % (0-6); HEMATOCRIT 42.3 % (35.0-45.0); HEMOGLOBIN 14.3 g/dl (12.0-16.0); LYMPHOCYTES % (AUTO) 30.8 % (21-51); MEAN CORPUSCULAR HEMOGLOBIN 33.7 PG (27.0-31.0); MEAN CORPUSCULAR HGB CONC 33.8 % (33.0-36.5); MEAN CORPUSCULAR VOLUME 99.6 FL (78-98); MEAN PLATELET VOLUME 7.9 FL (7.4-10.4); MONOCYTES # (AUTO) 0.4 X10'3 (0-0.9); MONOCYTES % (AUTO) 6.8 % (2-12); NEUTROPHILS # (AUTO) 3.9 X10'3 (1.8-7.7); NEUTROPHILS % (AUTO) 60.6 % (42-75); PLATELET COUNT 246 X10'3 (140-440); RED BLOOD COUNT 4.25 X10'6 (4.20-5.60); RED CELL DISTRIBUTION WIDTH 14.3 % (11.5-14.5); WHITE BLOOD COUNT 6.5 X10'3 (4.5-11.0)
[2018-06-26] MEDS: diatr meglu/diatrizoate 30ml oral sol.-(3 dose) bottle PO SCH ×2 (11:59→12:10)
[2018-06-26 12:03] LABS: ALANINE AMINOTRANSFERASE 19 U/L (12-78); ALBUMIN 3.9 G/DL (3.4-5.0); ALBUMIN/GLOBULIN RATIO 1.1 (1.1-1.5); ALKALINE PHOSPHATASE 102 IU/L (46-116); AMYLASE 66 U/L (25-115); ANION GAP 13 (8-16); ASPARTATE AMINO TRANSFERASE 16 U/L (10-37); BILIRUBIN,TOTAL 0.2 MG/DL (0.1-1.0); BLOOD UREA NITROGEN 4 MG/DL (7-18); BUN/CREATININE RATIO 4.9 (6.6-38.0); CALCIUM 8.9 MG/DL (8.5-10.1); CHLORIDE 99 MMOL/L (99-107); CREATININE 0.82 MG/DL (0.40-0.90); GLUCOSE 87 MG/DL (70-104); LIPASE 190 U/L (73-393); POTASSIUM 3.5 MMOL/L (3.5-5.1); SODIUM 134 MMOL/L (135-145); TOTAL CARBON DIOXIDE 22.5 MMOL/L (24-32); TOTAL PROTEIN 7.3 G/DL (6.4-8.2); eGFR 77 ML/MIN
[2018-06-26 12:19] LABS: INR 1.1 INR; PROTHROMBIN TIME 11.2 SECONDS (9.0-12.0)
[2018-06-26] MEDS ORDERED: iohexol 350MG/ML 100ml bottle IV ONE (12:26)
[2018-06-26] MEDS ORDERED: fentaNYL/PF 50MCG/1 ML 2ML syringe IV ONE (13:25)
[2018-06-26 14:01] VITALS: BP 129/64
== END 2018-06-26 14:03 | disposition home or self-care (01) ==
LOC: ER 11:03
DX: G89.29 Other chronic pain (principal); R10.84 Generalized abdominal pain; R10.12 Left upper quadrant pain; R11.2 Nausea with vomiting, unspecified; G43.909 Migraine, unspecified, not intractable, without status migrainosus; J45.909 Unspecified asthma, uncomplicated; F12.90 Cannabis use, unspecified, uncomplicated; Z90.710 Acquired absence of both cervix and uterus; Z56.0 Unemployment, unspecified; Z88.1 Allergy status to other antibiotic agents; Z79.899 Other long term (current) drug therapy
CPT/HCPCS: 36415; 74177; 80053; 81003; 82150; 83690; 85025; 85610; 96361; 96374; 96375; 99284; J1170; J1885; J2405; J3010; J7030; Q9963; Q9967

== ENCOUNTER 2018-11-22 13:33 | Emergency (ER) | payer MEDICAID ==
[~2018-11-22] VITALS: Ht 167.6 cm; Wt 59.1 kg
[2018-11-22 14:27] LABS: CLARITY,URINE CLEAR (Clear); COLOR,URINE STRAW (Yellow); GLUCOSE, URINE NEGATIVE (Neg); KETONES,URINE NEGATIVE (Neg); LEUKOCYTE ESTERASE ,URINE NEGATIVE (Neg); NITRITES, URINE NEGATIVE (Neg); OCCULT BLOOD,URINE NEGATIVE (Neg); PROTEIN,URINE NEGATIVE (Neg); UA COLLECTION TYPE CLN CATCH MIDSTREAM; URINE HCG NEGATIVE (NEG); UROBILINOGEN,URINE 0.2 E.U/dL (0.2-1.0)
[2018-11-22 14:29] LABS: BASOPHILS # (AUTO) 0.1 X10'3 (0-0.2); BASOPHILS % (AUTO) 1.5 % (0-1); EOSINOPHILS % (AUTO) 0.6 % (0-6); HEMOGLOBIN 13.6 g/dl (12.0-16.0); LYMPHOCYTES # (AUTO) 2.2 X10'3 (1.1-4.8); LYMPHOCYTES % (AUTO) 27.5 % (21-51); MEAN CORPUSCULAR HEMOGLOBIN 33.5 PG (27.0-31.0); MEAN CORPUSCULAR HGB CONC 33.9 g/dL (33.0-36.5); MEAN PLATELET VOLUME 7.6 FL (7.4-10.4); MONOCYTES # (AUTO) 0.7 X10'3 (0-0.9); MONOCYTES % (AUTO) 8.6 % (2-12); NEUTROPHILS # (AUTO) 4.9 X10'3 (1.8-7.7); NEUTROPHILS % (AUTO) 61.8 % (42-75); PLATELET COUNT 237 X10'3 (140-440); RED BLOOD COUNT 4.04 X10'6 (4.20-5.60); RED CELL DISTRIBUTION WIDTH 13.5 % (11.5-14.5); WHITE BLOOD COUNT 7.9 X10'3 (4.5-11.0)
[2018-11-22 14:52] LABS: ALANINE AMINOTRANSFERASE 25 U/L (12-78); ALBUMIN/GLOBULIN RATIO 1.2 (1.1-1.5); ALKALINE PHOSPHATASE 104 IU/L (46-116); ANION GAP 5 (8-16); ASPARTATE AMINO TRANSFERASE 18 U/L (10-37); BILIRUBIN,TOTAL 0.2 MG/DL (0.1-1.0); BLOOD UREA NITROGEN 4 MG/DL (7-18); CHLORIDE 101 MMOL/L (99-107); GLUCOSE 74 MG/DL (70-104); POTASSIUM 4.3 MMOL/L (3.5-5.1); SODIUM 134 MMOL/L (135-145); TOTAL CARBON DIOXIDE 27.7 MMOL/L (24-32); TOTAL PROTEIN 7.4 G/DL (6.4-8.2); eGFR 79 ML/MIN
[2018-11-22 14:59] LABS: LIPASE 409 U/L (73-393)
[2018-11-22 15:09] VITALS: BP 110/65
[2018-11-22] MEDS ORDERED: HYDR-3965 PO (16:38)
== END 2018-11-22 16:51 | disposition home or self-care (01) ==
LOC: ER 13:34
DX: K85.80 Other acute pancreatitis without necrosis or infection (principal); G43.909 Migraine, unspecified, not intractable, without status migrainosus; J45.909 Unspecified asthma, uncomplicated; F17.200 Nicotine dependence, unspecified, uncomplicated; F12.90 Cannabis use, unspecified, uncomplicated; Z90.710 Acquired absence of both cervix and uterus; Z88.1 Allergy status to other antibiotic agents; Z79.899 Other long term (current) drug therapy; Z56.0 Unemployment, unspecified
CPT/HCPCS: 36415; 80053; 81003; 81025; 83690; 85025; 85610; 99283

== ENCOUNTER 2019-02-11 15:41 | Emergency (ER) | payer MEDICAID ==
[~2019-02-11] VITALS: Ht 167.6 cm; Wt 56.8 kg
[~2019-02-11 15:41] MED LIST changes: -IBUP-2264 PO; +IBUP-2697 PO
[2019-02-11 16:33] LABS: URINE HCG NEGATIVE (NEG)
[2019-02-11 16:36] LABS: CLARITY,URINE SLIGHTLY CLOUDY (Clear); COLOR,URINE YELLOW (Yellow); GLUCOSE, URINE NEGATIVE (Neg); KETONES,URINE NEGATIVE (Neg); LEUKOCYTE ESTERASE ,URINE NEGATIVE (Neg); NITRITES, URINE NEGATIVE (Neg); OCCULT BLOOD,URINE NEGATIVE (Neg); PROTEIN,URINE NEGATIVE (Neg); UROBILINOGEN,URINE 0.2 E.U/dL (0.2-1.0)
--- NOTE | 2019-02-11 16:37 | NUR ---
PT RECENTLY HAD A STENT PLACED IN OCTOBER 2018 IN HER PANCREAS BUT DIDNT TAKE. WILL NEED TO GET ANOTHER STENT PER HER DOCTOR. PT HAS BEEN VOMITING AND CANT EAT. PT HAS BEEN HAVING PAIN FOR ABOUT A WEEK FEELING DEHYDRATED.
[2019-02-11 16:42] LABS: UA COLLECTION TYPE CLN CATCH MIDSTREAM
[2019-02-11 16:47] LABS: BACTERIA,URINE FEW /HPF (Neg); RBC,URINE 0-2 /HPF (0-2); SQUAMOUS EPITHELIAL CELL,UR FEW /LPF (FEW); WBC,URINE 0-4 /HPF (0-4)
[2019-02-11 16:47] LABS: BASOPHILS # (AUTO) 0.1 X10'3 (0-0.2); BASOPHILS % (AUTO) 1.3 % (0-1); EOSINOPHILS % (AUTO) 0.7 % (0-6); HEMATOCRIT 39.8 % (35.0-45.0); HEMOGLOBIN 13.7 g/dl (12.0-16.0); LYMPHOCYTES % (AUTO) 32.2 % (21-51); MEAN CORPUSCULAR HEMOGLOBIN 33.8 PG (27.0-31.0); MEAN CORPUSCULAR HGB CONC 34.5 g/dL (33.0-36.5); MEAN CORPUSCULAR VOLUME 97.9 FL (78-98); MEAN PLATELET VOLUME 8.3 FL (7.4-10.4); MONOCYTES # (AUTO) 0.4 X10'3 (0-0.9); NEUTROPHILS # (AUTO) 3.8 X10'3 (1.8-7.7); NEUTROPHILS % (AUTO) 59.8 % (42-75); PLATELET COUNT 230 X10'3 (140-440); RED BLOOD COUNT 4.07 X10'6 (4.20-5.60); RED CELL DISTRIBUTION WIDTH 14.3 % (11.5-14.5); WHITE BLOOD COUNT 6.3 X10'3 (4.5-11.0)
[2019-02-11 16:49] LABS: ALANINE AMINOTRANSFERASE 22 U/L (12-78); ALBUMIN/GLOBULIN RATIO 1.3 (1.1-1.5); ALKALINE PHOSPHATASE 88 IU/L (46-116); ANION GAP 10 (8-16); ASPARTATE AMINO TRANSFERASE 16 U/L (10-37); BILIRUBIN,TOTAL 0.3 MG/DL (0.1-1.0); BLOOD UREA NITROGEN 3 MG/DL (7-18); CHLORIDE 102 MMOL/L (99-107); GLUCOSE 123 MG/DL (70-104); SODIUM 137 MMOL/L (135-145); TOTAL CARBON DIOXIDE 24.7 MMOL/L (24-32); TOTAL PROTEIN 7.2 G/DL (6.4-8.2); eGFR 61 ML/MIN
[2019-02-11] MEDS ORDERED: diphenhydrAMINE 50 mg/ml inj IV ONE (16:50)
[2019-02-11] MEDS ORDERED: metoclopramide 5 mg/ml inj IV ONE (16:50)
[2019-02-11] MEDS ORDERED: normal saline 1000ML IV soln IVB ONE ×2 (16:50)
[2019-02-11 17:02] LABS: LIPASE 217 U/L (73-393)
[2019-02-11] MEDS ORDERED: LORazepam 2 mg/ml vial IV ONE (17:25)
[2019-02-11] MEDS ORDERED: morphine 4 MG/ML inj SYRINge IV ONE (17:25)
[2019-02-11] MEDS ORDERED: ONDA4TAB12 PO (17:55)
[2019-02-11 18:45] VITALS: BP 132/75
== END 2019-02-11 18:52 | disposition home or self-care (01) ==
LOC: ER 15:41
DX: R10.13 Epigastric pain (principal); R11.2 Nausea with vomiting, unspecified; G43.909 Migraine, unspecified, not intractable, without status migrainosus; J45.909 Unspecified asthma, uncomplicated; F17.210 Nicotine dependence, cigarettes, uncomplicated; F12.90 Cannabis use, unspecified, uncomplicated; Z56.0 Unemployment, unspecified; Z90.710 Acquired absence of both cervix and uterus; Z88.1 Allergy status to other antibiotic agents; Z79.899 Other long term (current) drug therapy
CPT/HCPCS: 36415; 80053; 81001; 81025; 83690; 85025; 85610; 96361; 96374; 96375; 99283; J1200; J2060; J2270; J2765; J7030

== ENCOUNTER 2019-03-19 18:07 | Observation (INO) | payer MEDICAID ==
[~2019-03-19] VITALS: Ht 167.6 cm; Wt 56.8 kg
[~2019-03-19 18:07] MED LIST changes: +ONDA4TAB12 PO
[2019-03-19 19:06] LABS: EOSINOPHILS # (AUTO) 0.1 X10'3 (0-0.9); MEAN CORPUSCULAR HEMOGLOBIN 33.8 PG (27.0-31.0); MEAN PLATELET VOLUME 8.1 FL (7.4-10.4); RED BLOOD COUNT 3.95 X10'6 (4.20-5.60)
[2019-03-19 19:07] LABS: BASOPHILS # (AUTO) 0.1 X10'3 (0-0.2); BASOPHILS % (AUTO) 1.3 % (0-1); EOSINOPHILS % (AUTO) 1.4 % (0-6); HEMOGLOBIN 13.3 g/dl (12.0-16.0); LYMPHOCYTES # (AUTO) 1.9 X10'3 (1.1-4.8); LYMPHOCYTES % (AUTO) 30.3 % (21-51); MEAN CORPUSCULAR HGB CONC 34.2 g/dL (33.0-36.5); MEAN CORPUSCULAR VOLUME 98.9 FL (78-98); MONOCYTES # (AUTO) 0.4 X10'3 (0-0.9); MONOCYTES % (AUTO) 5.7 % (2-12); NEUTROPHILS # (AUTO) 3.9 X10'3 (1.8-7.7); NEUTROPHILS % (AUTO) 61.3 % (42-75); PLATELET COUNT 187 X10'3 (140-440); RED CELL DISTRIBUTION WIDTH 14.2 % (11.5-14.5); WHITE BLOOD COUNT 6.3 X10'3 (4.5-11.0)
[2019-03-19 19:11] LABS: URINE HCG NEGATIVE (NEG)
[2019-03-19 19:16] LABS: CLARITY,URINE CLEAR (Clear); COLOR,URINE YELLOW (Yellow); GLUCOSE, URINE NEGATIVE (Neg); KETONES,URINE NEGATIVE (Neg); LEUKOCYTE ESTERASE ,URINE NEGATIVE (Neg); NITRITES, URINE NEGATIVE (Neg); OCCULT BLOOD,URINE NEGATIVE (Neg); PH,URINE 6.5 (4.8-8.0); PROTEIN,URINE NEGATIVE (Neg); UROBILINOGEN,URINE 0.2 E.U/dL (0.2-1.0)
[2019-03-19 19:17] LABS: UA COLLECTION TYPE CLN CATCH MIDSTREAM
[2019-03-19 19:19] LABS: ALANINE AMINOTRANSFERASE 21 U/L (12-78); ALBUMIN/GLOBULIN RATIO 1.1 (1.1-1.5); ALKALINE PHOSPHATASE 90 IU/L (46-116); AMYLASE 108 U/L (25-115); ANION GAP 9 (8-16); ASPARTATE AMINO TRANSFERASE 18 U/L (10-37); BILIRUBIN,TOTAL 0.4 MG/DL (0.1-1.0); BLOOD UREA NITROGEN 3 MG/DL (7-18); BUN/CREATININE RATIO 3.4 (6.6-38.0); CHLORIDE 101 MMOL/L (99-107); CREATININE 0.89 MG/DL (0.40-0.90); GLUCOSE 80 MG/DL (70-104); LIPASE 864 U/L (73-393); POTASSIUM 4.2 MMOL/L (3.5-5.1); SODIUM 135 MMOL/L (135-145); TOTAL CARBON DIOXIDE 24.8 MMOL/L (24-32); TOTAL PROTEIN 7.6 G/DL (6.4-8.2); eGFR 70 ML/MIN
[2019-03-19 19:24] LABS: CALCIUM 9.3 MG/DL (8.5-10.1)
[2019-03-19] MEDS ORDERED: morphine 10mg/ml inj. IV ONE (19:45)
[2019-03-19] MEDS ORDERED: iohexol 300mg/ml 100ml inj. ONE (19:46)
--- NOTE | 2019-03-19 19:58 | NUR ---
PT TO CT
[2019-03-19] MEDS ORDERED: normal saline 1000ml 1,000 ML IV SCH (21:13)
[2019-03-19] MEDS ORDERED: acetaminophen 325mg tablet PO PRN ×2 (21:15)
[2019-03-19] MEDS ORDERED: magnesium hydroxide 30ml (MOM) UD suspension PO PRN (21:15)
[2019-03-19] MEDS ORDERED: metoclopramide 5 mg/ml inj IV PRN (21:15)
[2019-03-19] MEDS ORDERED: mag hydrox/Alum hydrox/simeth 30ml oral suspension PO PRN (21:15)
[2019-03-19] MEDS ORDERED: ondansetron/PF 4mg/2ml inj IV PRN (21:15)
[2019-03-19] MEDS ORDERED: HYDROcodone/acetaminophen 10/325mg tab PO PRN (21:15)
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
--- NOTE | 2019-03-19 21:57 | NUR ---
Pt has been told by [facility] to be strict npo . semiconductor wafers saw operator, Stacey, awaiting to update Dr. Cross that Pt does not want to be admitted if he is her hospitalist. Pt currently dressed and wants to leave AMA d/t her conflict w/Dr. Cross.
--- NOTE | 2019-03-19 22:19 | NUR ---
Pt talking with myself and Stacey at length and is finally agreeable to going upstairs for admission, ipa 344b. She requests to go ou[place]ide and smoke and wants the iv out to do this. I explained the non smoking policy and that she is not allowed to leave once admitted. Pt reprots frustration, but is agreeable to tryign a patch,"but i asked for one last timie and never got it". Pt reports she would leave ama now but has not transportation and no one to get her and she does not drive d/t her epilepsy.
--- NOTE | 2019-03-19 22:30 | NUR ---
Received report from Sarah PEREZ in the ER. Pt arrived on the unit in an obvious state of frustration. She was upset with Dr. Cross for "treating her like she was a drug addict on meth when she has a real medical issue." She changed into hospital gown and used restroom. VSS, no signs of medical distress. Will continue to monitor.
[2019-03-19] MEDS ORDERED: CLON-370 (22:42)
[2019-03-19] MEDS ORDERED: CARB200T PO (22:42)
[2019-03-19] MEDS ORDERED: LIPA1CAP18 PO (22:42)
[2019-03-19] MEDS ORDERED: IBUP-1986 PO (22:42)
[2019-03-19] MEDS ORDERED: HYDR-4353 PO (22:42)
--- NOTE | 2019-03-19 22:48 | NUR ---
Dr. Cross updated that Pt requests nicotine patch. Verbal received for nicotinie patch 14 mg daily. Also updataed that med rec is now completed.
[2019-03-19] MEDS ORDERED: nicotine 14mg patch - 24hr TD SCH (22:50)
[2019-03-19 23:00] VITALS: BP 99/44
--- NOTE | 2019-03-19 23:15 | NUR ---
Pt caught smoking in the bathroom. Pt voluntarily relinquished cigarettes and promotion manager. Pt was notified of hospital policy regarding smoking and the risks of smoking with the Nicotine patch on. Pt states that she understands.
[2019-03-20] MEDS ORDERED: clonazePAM 1mg tablet PO ONE (01:55)
--- NOTE | 2019-03-20 02:35 | NUR ---
Pt decided to go AMA. Signed AMA paperwork, changed into her own clothes, cigarettes and cnc milling machinist were returned to her and IV was removed. Pt stormed off the unit with a steady gait. notified.
[2019-03-20] MEDS ORDERED: clonazePAM 1mg tablet PO SCH (21:00)
== END 2019-03-20 02:15 | disposition left against medical advice (07) ==
LOC: ER 18:08 → SUR 3N 22:16
PROVIDERS: ADMIT Hospitalist; ATTEND Hospitalist
DX: K86.1 Other chronic pancreatitis (principal); M54.9 Dorsalgia, unspecified; G89.29 Other chronic pain; J45.909 Unspecified asthma, uncomplicated; Z90.710 Acquired absence of both cervix and uterus; R11.2 Nausea with vomiting, unspecified; F12.90 Cannabis use, unspecified, uncomplicated
CPT/HCPCS: 36415; 74176; 80053; 81003; 81025; 82150; 83690; 85025; 85610; 87081; 96361; 96374; 96375; 99284; G0378; J2270; J2405; Q9967; J7030

== ENCOUNTER 2019-09-15 14:49 | Emergency (ER) | payer MEDICAID ==
[~2019-09-15] VITALS: Ht 167.6 cm; Wt 57.2 kg
[~2019-09-15 14:49] MED LIST changes: +CARB200T PO; +CLON-370; -CYCL-1 PO; +HYDR-4353 PO; +IBUP-1986 PO; -IBUP-2697 PO; -LACO100T2 PO; +LIPA1CAP18 PO; -MULT-785 PO; -ONDA4TAB12 PO; -ONDA4TAB6 PO; -ONDA8TAB6 PO; -SERT50TA PO
[2019-09-15 16:03] LABS: CLARITY,URINE CLEAR (Clear); COLOR,URINE STRAW (Yellow); GLUCOSE, URINE NEGATIVE (Neg); KETONES,URINE NEGATIVE (Neg); LEUKOCYTE ESTERASE ,URINE NEGATIVE (Neg); NITRITES, URINE NEGATIVE (Neg); OCCULT BLOOD,URINE NEGATIVE (Neg); PH,URINE 6.5 (4.8-8.0); PROTEIN,URINE NEGATIVE (Neg); UROBILINOGEN,URINE 0.2 E.U/dL (0.2-1.0)
[2019-09-15 16:04] LABS: UA COLLECTION TYPE CLN CATCH MIDSTREAM; URINE HCG NEGATIVE (NEG)
[2019-09-15] MEDS ORDERED: ondansetron/PF 4mg/2ml inj IV ONE (16:10)
[2019-09-15] MEDS ORDERED: normal saline 1000ML IV soln IVB ONE (16:10)
[2019-09-15 16:15] LABS: BASOPHILS # (AUTO) 0.1 X10'3 (0-0.2); BASOPHILS % (AUTO) 1.4 % (0-1); EOSINOPHILS % (AUTO) 0.2 % (0-6); HEMATOCRIT 39.7 % (35.0-45.0); HEMOGLOBIN 13.6 g/dl (12.0-16.0); LYMPHOCYTES # (AUTO) 1.3 X10'3 (1.1-4.8); LYMPHOCYTES % (AUTO) 14.9 % (21-51); MEAN CORPUSCULAR HEMOGLOBIN 34.4 PG (27.0-31.0); MEAN CORPUSCULAR HGB CONC 34.3 g/dL (33.0-36.5); MEAN CORPUSCULAR VOLUME 100.3 FL (78-98); MEAN PLATELET VOLUME 7.9 FL (7.4-10.4); MONOCYTES # (AUTO) 0.4 X10'3 (0-0.9); MONOCYTES % (AUTO) 4.9 % (2-12); NEUTROPHILS # (AUTO) 6.7 X10'3 (1.8-7.7); NEUTROPHILS % (AUTO) 78.6 % (42-75); PLATELET COUNT 204 X10'3 (140-440); RED BLOOD COUNT 3.96 X10'6 (4.20-5.60); RED CELL DISTRIBUTION WIDTH 14.9 % (11.5-14.5); WHITE BLOOD COUNT 8.5 X10'3 (4.5-11.0)
[2019-09-15 16:29] LABS: ALANINE AMINOTRANSFERASE 21 U/L (12-78); ALBUMIN/GLOBULIN RATIO 1.2 (1.1-1.5); ALKALINE PHOSPHATASE 103 IU/L (46-116); ANION GAP 9 (8-16); ASPARTATE AMINO TRANSFERASE 22 U/L (10-37); BILIRUBIN,TOTAL 0.2 MG/DL (0.1-1.0); CHLORIDE 107 MMOL/L (99-107); GLUCOSE 98 MG/DL (70-104); LIPASE 248 U/L (73-393); POTASSIUM 3.7 MMOL/L (3.5-5.1); SODIUM 140 MMOL/L (135-145); TOTAL CARBON DIOXIDE 24.4 MMOL/L (24-32); TOTAL PROTEIN 7.3 G/DL (6.4-8.2)
[2019-09-15 16:31] LABS: CALCIUM 8.9 MG/DL (8.5-10.1)
[2019-09-15 16:36] LABS: BLOOD UREA NITROGEN 2 MG/DL (7-18); BUN/CREATININE RATIO 2.6 (6.6-38.0); CREATININE 0.77 MG/DL (0.40-0.90); eGFR 83 ML/MIN
--- NOTE | 2019-09-15 17:05 | NUR ---
Break relief for primary nurse. Pt moved from ED bed 4 to ED bed 9 to accommodate the needs of patients in the dept. Pt's IV fluid is infusing at this time.
[2019-09-15 17:06] LABS: AMYLASE 47 U/L (25-115)
[2019-09-15] MEDS ORDERED: morphine 10mg/ml inj. IV ONE ×2 (17:20→18:35)
--- NOTE | 2019-09-15 18:04 | NUR ---
ADMIN PAIN MEDS AND ANOTHER FLUID BOLUS ORDERED BY PROVIDER. PT AMB TO BATHROOM TO VOID AND IS CALLING FOR A RIDE HOME.
[2019-09-15] MEDS ORDERED: normal saline 1000ml 1,000 ML IV ONE (18:05)
[2019-09-15 19:04] VITALS: BP 133/89
== END 2019-09-15 19:05 | disposition home or self-care (01) ==
LOC: ER 14:50
DX: R10.12 Left upper quadrant pain (principal); R11.0 Nausea; R39.11 Hesitancy of micturition; J45.909 Unspecified asthma, uncomplicated; G89.29 Other chronic pain; F12.90 Cannabis use, unspecified, uncomplicated; Z86.69 Personal history of other diseases of the nervous system and sense organs; Z90.710 Acquired absence of both cervix and uterus; Z56.0 Unemployment, unspecified; Z88.1 Allergy status to other antibiotic agents; Z79.899 Other long term (current) drug therapy
CPT/HCPCS: 36415; 80053; 81003; 81025; 82150; 83690; 85025; 96374; 96375; 96376; 99284; J2270; J2405; J7030

== ENCOUNTER 2019-09-21 21:27 | Emergency (ER) | payer MEDICAID ==
[~2019-09-21] VITALS: Ht 167.6 cm; Wt 56.8 kg
[2019-09-21 21:32] VITALS: BP 136/92
[2019-09-21] MEDS ORDERED: ketorolac trometh inj. 60 MG/2 ML VIAL IM ONE (22:10)
--- NOTE | 2019-09-21 22:16 | NUR ---
Pt. offered Torodol for pain before discharge, pt. refused and became verbally abusive toward RN.
== END 2019-09-21 22:12 | disposition home or self-care (01) ==
LOC: ER 21:27
DX: S52.592D Other fractures of lower end of left radius, subsequent encounter for closed fracture with routine healing (principal); G43.909 Migraine, unspecified, not intractable, without status migrainosus; J45.909 Unspecified asthma, uncomplicated; G89.29 Other chronic pain; F12.90 Cannabis use, unspecified, uncomplicated; Z56.0 Unemployment, unspecified; Z90.710 Acquired absence of both cervix and uterus; Z88.1 Allergy status to other antibiotic agents; W55.32XD Struck by other hoof stock, subsequent encounter
CPT/HCPCS: 73100; 99283

== ENCOUNTER 2019-11-25 09:27 | Emergency (ER) | payer MEDICAID ==
[~2019-11-25] VITALS: Ht 167.6 cm; Wt 59.1 kg
--- NOTE | 2019-11-25 10:09 | NUR ---
Pt aware we need a urine sample. Pt unable to obtain at this time. Pt will obtain when she is able to.
[2019-11-25 10:24] LABS: BASOPHILS # (AUTO) 0.1 X10'3 (0-0.2); BASOPHILS % (AUTO) 1.1 % (0-1); EOSINOPHILS % (AUTO) 0.4 % (0-6); HEMATOCRIT 48.3 % (35.0-45.0); HEMOGLOBIN 16.3 g/dl (12.0-16.0); LYMPHOCYTES # (AUTO) 1.2 X10'3 (1.1-4.8); LYMPHOCYTES % (AUTO) 14.5 % (21-51); MEAN CORPUSCULAR HEMOGLOBIN 33.6 PG (27.0-31.0); MEAN CORPUSCULAR HGB CONC 33.8 g/dL (33.0-36.5); MEAN CORPUSCULAR VOLUME 99.5 FL (78-98); MEAN PLATELET VOLUME 7.8 FL (7.4-10.4); MONOCYTES # (AUTO) 0.4 X10'3 (0-0.9); NEUTROPHILS # (AUTO) 6.6 X10'3 (1.8-7.7); PLATELET COUNT 298 X10'3 (140-440); RED BLOOD COUNT 4.86 X10'6 (4.20-5.60); RED CELL DISTRIBUTION WIDTH 13.4 % (11.5-14.5); WHITE BLOOD COUNT 8.3 X10'3 (4.5-11.0)
[2019-11-25] MEDS ORDERED: haloperidol lactate 5mg/ml inj IM ONE (10:30)
[2019-11-25] MEDS ORDERED: diphenhydrAMINE 50 mg/ml inj IV ONE (10:30)
[2019-11-25] MEDS ORDERED: LORazepam 2 mg/ml vial IV ONE (10:30)
[2019-11-25] MEDS ORDERED: ondansetron/PF 4mg/2ml inj IV ONE ×2 (10:30→14:30)
[2019-11-25 10:35] LABS: ALANINE AMINOTRANSFERASE 27 U/L (12-78); ALBUMIN 4.6 G/DL (3.4-5.0); ALBUMIN/GLOBULIN RATIO 1.4 (1.1-1.5); ALKALINE PHOSPHATASE 113 IU/L (46-116); ANION GAP 13 (8-16); ASPARTATE AMINO TRANSFERASE 21 U/L (10-37); BILIRUBIN,TOTAL 0.5 MG/DL (0.1-1.0); BLOOD UREA NITROGEN 6 MG/DL (7-18); BUN/CREATININE RATIO 6.2 (6.6-38.0); CALCIUM 9.8 MG/DL (8.5-10.1); CHLORIDE 108 MMOL/L (99-107); CREATININE 0.97 MG/DL (0.40-0.90); GLUCOSE 118 MG/DL (70-104); LIPASE 356 U/L (73-393); POTASSIUM 3.8 MMOL/L (3.5-5.1); SODIUM 143 MMOL/L (135-145); TOTAL CARBON DIOXIDE 21.9 MMOL/L (24-32); eGFR 63 ML/MIN
[2019-11-25] MEDS ORDERED: normal saline 1000ML IV soln IVB ONE (10:35)
[2019-11-25] MEDS ORDERED: ketorolac tromethamine 15mg/ml inj. IV ONE (12:10)
[2019-11-25 13:59] LABS: CLARITY,URINE CLEAR (Clear); GLUCOSE, URINE NEGATIVE (Neg); KETONES,URINE 40 mg/dl (Neg); LEUKOCYTE ESTERASE ,URINE NEGATIVE (Neg); NITRITES, URINE NEGATIVE (Neg); OCCULT BLOOD,URINE MODERATE (Neg); PH,URINE 6.5 (4.8-8.0); PROTEIN,URINE TRACE mg/dl (Neg); UROBILINOGEN,URINE 0.2 E.U/dL (0.2-1.0)
[2019-11-25 14:00] LABS: COLOR,URINE DARK YELLOW (Yellow); UA COLLECTION TYPE NON-SPECIFIED; URINE HCG NEGATIVE (NEG)
[2019-11-25 14:17] LABS: BACTERIA,URINE NONE SEEN /HPF (Neg); MUCUS STRANDS MANY /LPF (Neg); SQUAMOUS EPITHELIAL CELL,UR FEW /LPF (FEW); WBC,URINE 0-4 /HPF (0-4)
[2019-11-25 14:18] LABS: YEAST FEW /HPF (NEGATIVE)
[2019-11-25] MEDS ORDERED: morphine 4 MG/ML inj SYRINge IV ONE (14:30)
[2019-11-25 15:23] VITALS: BP 146/81
== END 2019-11-25 15:29 | disposition home or self-care (01) ==
LOC: ER 09:28
DX: K86.1 Other chronic pancreatitis (principal); R11.10 Vomiting, unspecified; R10.9 Unspecified abdominal pain; G43.909 Migraine, unspecified, not intractable, without status migrainosus; J45.909 Unspecified asthma, uncomplicated; G89.29 Other chronic pain; F12.90 Cannabis use, unspecified, uncomplicated; Z86.69 Personal history of other diseases of the nervous system and sense organs; Z90.710 Acquired absence of both cervix and uterus; Z56.0 Unemployment, unspecified; Z88.1 Allergy status to other antibiotic agents; Z79.899 Other long term (current) drug therapy
CPT/HCPCS: 36415; 80053; 81001; 81025; 83690; 85025; 96361; 96372; 96374; 96375; 96376; 99285; J1200; J1630; J1885; J2060; J2270; J2405; J7030

== ENCOUNTER 2020-07-18 14:35 | Emergency (ER) | payer MEDICAID ==
[~2020-07-18] VITALS: Ht 167.6 cm; Wt 50.0 kg
[2020-07-18 15:54] LABS: BASOPHILS # (AUTO) 0.1 X10'3 (0-0.2); BASOPHILS % (AUTO) 1.1 % (0-1); EOSINOPHILS % (AUTO) 0.3 % (0-6); HEMATOCRIT 38.8 % (35.0-45.0); HEMOGLOBIN 13.4 g/dl (12.0-16.0); LYMPHOCYTES # (AUTO) 2.4 X10'3 (1.1-4.8); LYMPHOCYTES % (AUTO) 25.1 % (21-51); MEAN CORPUSCULAR HEMOGLOBIN 33.9 PG (27.0-31.0); MEAN CORPUSCULAR HGB CONC 34.6 g/dL (33.0-36.5); MEAN PLATELET VOLUME 6.9 FL (7.4-10.4); MONOCYTES # (AUTO) 0.5 X10'3 (0-0.9); MONOCYTES % (AUTO) 5.1 % (2-12); NEUTROPHILS # (AUTO) 6.5 X10'3 (1.8-7.7); NEUTROPHILS % (AUTO) 68.4 % (42-75); PLATELET COUNT 310 X10'3 (140-440); RED BLOOD COUNT 3.95 X10'6 (4.20-5.60); RED CELL DISTRIBUTION WIDTH 14.9 % (11.5-14.5); WHITE BLOOD COUNT 9.5 X10'3 (4.5-11.0)
[2020-07-18 15:55] LABS: CLARITY,URINE CLEAR (Clear); COLOR,URINE YELLOW (Yellow); GLUCOSE, URINE NEGATIVE (Neg); KETONES,URINE NEGATIVE (Neg); LEUKOCYTE ESTERASE ,URINE NEGATIVE (Neg); NITRITES, URINE NEGATIVE (Neg); OCCULT BLOOD,URINE TRACE-INTACT (Neg); PH,URINE 7.5 (4.8-8.0); PROTEIN,URINE NEGATIVE (Neg)
[2020-07-18 16:00] LABS: UA COLLECTION TYPE CLN CATCH MIDSTREAM
[2020-07-18 16:01] LABS: BACTERIA,URINE FEW /HPF (Neg); MUCUS STRANDS FEW /LPF (Neg); RBC,URINE 0-2 /HPF (0-2); SQUAMOUS EPITHELIAL CELL,UR FEW /LPF (FEW); WBC,URINE NONE SEEN /HPF (0-4)
[2020-07-18 16:09] LABS: ALANINE AMINOTRANSFERASE 54 U/L (12-78); ALBUMIN 3.7 G/DL (3.4-5.0); ALKALINE PHOSPHATASE 148 IU/L (46-116); AMYLASE 41 U/L (25-115); ANION GAP 9 (8-16); ASPARTATE AMINO TRANSFERASE 31 U/L (10-37); BILIRUBIN,TOTAL 0.4 MG/DL (0.1-1.0); BLOOD UREA NITROGEN 6 MG/DL (7-18); BUN/CREATININE RATIO 7.7 (6.6-38.0); CALCIUM 9.3 MG/DL (8.5-10.1); CHLORIDE 101 MMOL/L (99-107); CREATININE 0.78 MG/DL (0.40-0.90); GLUCOSE 101 MG/DL (70-104); LIPASE 169 U/L (73-393); POTASSIUM 4.2 MMOL/L (3.5-5.1); SODIUM 137 MMOL/L (135-145); TOTAL CARBON DIOXIDE 26.8 MMOL/L (24-32); TOTAL PROTEIN 7.5 G/DL (6.4-8.2); eGFR 81 ML/MIN
[2020-07-18] MEDS ORDERED: morphine 4 MG/ML inj SYRINge IV PRN (17:50)
[2020-07-18] MEDS ORDERED: ondansetron/PF 4mg/2ml inj IV ONE (17:50)
[2020-07-18] MEDS ORDERED: normal saline 1000ML IV soln IVB ONE (17:50)
[2020-07-18] MEDS ORDERED: ketorolac tromethamine 15mg/ml inj. IV ONE (17:50)
[2020-07-18 18:24] VITALS: BP 127/76
[2020-07-18] MEDS ORDERED: famotidine/PF 10 mg/ml inj IV ONE (18:30)
--- NOTE | 2020-07-18 18:40 | NUR ---
PT WITH REDNESS AND ITCHING TO VEIN WHERE MORPHINE WAS INFUSED, NO SOB OR OTHER RX'S. DR NOTIFIED, ORDER FOR PEPCID RECEIVED
== END 2020-07-18 19:40 | disposition left against medical advice (07) ==
LOC: ER 14:35
DX: R10.12 Left upper quadrant pain (principal); G89.29 Other chronic pain; K86.1 Other chronic pancreatitis; G43.909 Migraine, unspecified, not intractable, without status migrainosus; J45.909 Unspecified asthma, uncomplicated; F12.90 Cannabis use, unspecified, uncomplicated; Z87.828 Personal history of other (healed) physical injury and trauma; Z86.61 Personal history of infections of the central nervous system; Z90.710 Acquired absence of both cervix and uterus; Z56.0 Unemployment, unspecified; Z88.1 Allergy status to other antibiotic agents; Z79.899 Other long term (current) drug therapy
CPT/HCPCS: 36415; 74176; 80053; 81001; 82150; 83690; 85025; 96361; 96374; 96375; 99284; J1885; J2270; J2405; J3490; J7030

== ENCOUNTER 2020-10-07 17:27 | Emergency (ER) | payer MEDICAID ==
[~2020-10-07] VITALS: Ht 167.6 cm; Wt 45.5 kg
[2020-10-07] MEDS ORDERED: normal saline 1000ML IV soln IVB ONE ×2 (17:50→19:05)
[2020-10-07 18:12] LABS: BASOPHILS # (AUTO) 0.1 X10'3 (0-0.2); BASOPHILS % (AUTO) 0.7 % (0-1); EOSINOPHILS % (AUTO) 0.3 % (0-6); HEMATOCRIT 36.5 % (35.0-45.0); LYMPHOCYTES # (AUTO) 1.5 X10'3 (1.1-4.8); MEAN CORPUSCULAR HEMOGLOBIN 33.2 PG (27.0-31.0); MEAN CORPUSCULAR HGB CONC 32.9 g/dL (33.0-36.5); MEAN CORPUSCULAR VOLUME 100.9 FL (78-98); MONOCYTES # (AUTO) 0.9 X10'3 (0-0.9); MONOCYTES % (AUTO) 6.5 % (2-12); NEUTROPHILS # (AUTO) 11.3 X10'3 (1.8-7.7); NEUTROPHILS % (AUTO) 81.5 % (42-75); PLATELET COUNT 578 X10'3 (140-440); RED BLOOD COUNT 3.62 X10'6 (4.20-5.60); RED CELL DISTRIBUTION WIDTH 14.7 % (11.5-14.5); WHITE BLOOD COUNT 13.8 X10'3 (4.5-11.0)
[2020-10-07 18:39] LABS: ALANINE AMINOTRANSFERASE 29 U/L (12-78); ALBUMIN 2.7 G/DL (3.4-5.0); ALBUMIN/GLOBULIN RATIO 0.7 (1.1-1.5); ALKALINE PHOSPHATASE 132 IU/L (46-116); ANION GAP 10 (8-16); ASPARTATE AMINO TRANSFERASE 16 U/L (10-37); BILIRUBIN,TOTAL 0.2 MG/DL (0.1-1.0); BLOOD UREA NITROGEN 8 MG/DL (7-18); BUN/CREATININE RATIO 9.4 (6.6-38.0); CALCIUM 8.6 MG/DL (8.5-10.1); CHLORIDE 96 MMOL/L (99-107); CREATININE 0.85 MG/DL (0.40-0.90); GLUCOSE 146 MG/DL (70-104); LIPASE < 50 U/L (73-393); POTASSIUM 3.5 MMOL/L (3.5-5.1); SODIUM 132 MMOL/L (135-145); TOTAL CARBON DIOXIDE 26.5 MMOL/L (24-32); TOTAL PROTEIN 6.4 G/DL (6.4-8.2); eGFR 73 ML/MIN
[2020-10-07] MEDS ORDERED: ondansetron/PF 4mg/2ml inj IV ONE (19:05)
[2020-10-07] MEDS: morphine 4 MG/ML inj SYRINge IV PRN ×3 (19:17→21:44)
[2020-10-07] MEDS ORDERED: iohexol 300mg/ml 100ml inj. ONE (19:20)
[2020-10-07 20:17] LABS: CLARITY,URINE CLEAR (Clear); COLOR,URINE YELLOW (Yellow); GLUCOSE, URINE NEGATIVE (Neg); KETONES,URINE 15 mg/dl (Neg); LEUKOCYTE ESTERASE ,URINE NEGATIVE (Neg); NITRITES, URINE NEGATIVE (Neg); OCCULT BLOOD,URINE NEGATIVE (Neg); PROTEIN,URINE NEGATIVE (Neg); UROBILINOGEN,URINE 0.2 E.U/dL (0.2-1.0)
[2020-10-07 20:18] LABS: UA COLLECTION TYPE CLN CATCH MIDSTREAM
[2020-10-07] MEDS ORDERED: INSU100I45 SQ (21:01)
[2020-10-07] MEDS ORDERED: BACL10TA7 PO (21:01)
[2020-10-07] MEDS ORDERED: OMEP-50 PO (21:01)
[2020-10-07] MEDS ORDERED: OXYC10TA47 PO (21:01)
[2020-10-07] MEDS ORDERED: ONDA4TAB12 PO (21:01)
[2020-10-07 21:50] VITALS: BP 142/91
== END 2020-10-07 21:51 | disposition home or self-care (01) ==
LOC: ER 17:28
DX: R10.84 Generalized abdominal pain (principal); R11.2 Nausea with vomiting, unspecified; R55 Syncope and collapse; G43.909 Migraine, unspecified, not intractable, without status migrainosus; J45.909 Unspecified asthma, uncomplicated; G89.29 Other chronic pain; F12.90 Cannabis use, unspecified, uncomplicated; Z90.410 Acquired total absence of pancreas; Z86.69 Personal history of other diseases of the nervous system and sense organs; Z90.710 Acquired absence of both cervix and uterus; Z98.890 Other specified postprocedural states; Z56.0 Unemployment, unspecified; Z88.1 Allergy status to other antibiotic agents; Z79.4 Long term (current) use of insulin; Z79.899 Other long term (current) drug therapy
CPT/HCPCS: 36415; 74177; 80053; 81003; 83605; 83690; 84145; 85025; 96361; 96374; 96375; 96376; 99285; J2270; J2405; J7030; Q9967

== ENCOUNTER 2020-10-09 13:32 | Inpatient (IN) | payer MEDICAID ==
[~2020-10-09] VITALS: Ht 167.6 cm; Wt 49.5 kg
[~2020-10-09 13:32] MED LIST changes: +BACL10TA7 PO; -CLON-370; -HYDR-4353 PO; -IBUP-1986 PO; +INSU100I45 SQ; +OMEP-50 PO; +ONDA4TAB12 PO; +OXYC10TA47 PO
[2020-10-09] MEDS ORDERED: iohexol 300mg/ml 100ml inj. ONE (17:13)
[2020-10-09 17:40] LABS: BASOPHILS # (AUTO) 0.1 X10'3 (0-0.2); EOSINOPHILS # (AUTO) 0.1 X10'3 (0-0.9); LYMPHOCYTES # (AUTO) 1.6 X10'3 (1.1-4.8); MONOCYTES # (AUTO) 0.8 X10'3 (0-0.9); PLATELET COUNT 595 X10'3 (140-440)
[2020-10-09 17:42] LABS: BASOPHILS % (AUTO) 0.5 % (0-1); EOSINOPHILS % (AUTO) 1.2 % (0-6); HEMATOCRIT 35.7 % (35.0-45.0); HEMOGLOBIN 11.7 g/dl (12.0-16.0); LYMPHOCYTES % (AUTO) 15.5 % (21-51); MEAN CORPUSCULAR HGB CONC 32.8 g/dL (33.0-36.5); MEAN CORPUSCULAR VOLUME 100.6 FL (78-98); MEAN PLATELET VOLUME 7.2 FL (7.4-10.4); MONOCYTES % (AUTO) 7.3 % (2-12); NEUTROPHILS # (AUTO) 7.7 X10'3 (1.8-7.7); NEUTROPHILS % (AUTO) 75.5 % (42-75); RED BLOOD COUNT 3.54 X10'6 (4.20-5.60); RED CELL DISTRIBUTION WIDTH 14.3 % (11.5-14.5); WHITE BLOOD COUNT 10.3 X10'3 (4.5-11.0)
[2020-10-09] MEDS ORDERED: normal saline 1000ML IV soln IVB ONE (17:55)
[2020-10-09] MEDS ORDERED: oxyCODONE SR 10mg (sust. release) tab PO ONE (18:25)
[2020-10-09] MEDS ORDERED: morphine 4 MG/ML inj SYRINge IV ONE (18:40)
[2020-10-09] MEDS ORDERED: ondansetron/PF 4mg/2ml inj IV ONE (18:40)
[2020-10-09 19:07] LABS: ALANINE AMINOTRANSFERASE 20 U/L (12-78); ALBUMIN 2.1 G/DL (3.4-5.0); ALBUMIN/GLOBULIN RATIO 0.7 (1.1-1.5); ALKALINE PHOSPHATASE 108 IU/L (46-116); ANION GAP 9 (8-16); ASPARTATE AMINO TRANSFERASE 14 U/L (10-37); BILIRUBIN,TOTAL 0.1 MG/DL (0.1-1.0); BLOOD UREA NITROGEN 4 MG/DL (7-18); BUN/CREATININE RATIO 6.5 (6.6-38.0); CALCIUM 8.2 MG/DL (8.5-10.1); CHLORIDE 100 MMOL/L (99-107); CREATININE 0.62 MG/DL (0.40-0.90); GLUCOSE 122 MG/DL (70-104); POTASSIUM 3.3 MMOL/L (3.5-5.1); SODIUM 134 MMOL/L (135-145); TOTAL CARBON DIOXIDE 25.3 MMOL/L (24-32); TOTAL PROTEIN 5.1 G/DL (6.4-8.2); eGFR > 90 ML/MIN
[2020-10-09] MEDS ORDERED: morphine 10mg/ml inj. IV ONE (20:00)
[2020-10-09 20:21] LABS: MAGNESIUM 1.9 MG/DL (1.5-2.4)
[2020-10-09] MEDS ORDERED: glucagon, human recombinant 1mg kit SUBCUT PRN (21:50)
[2020-10-09] MEDS ORDERED: dextrose 50%-water 50ml dispensing syringe IV PRN ×2 (21:50)
[2020-10-09] MEDS ORDERED: magnesium 2GM in 50ml NS 50 ML IV PRN (21:50)
[2020-10-09] MEDS ORDERED: dextrose ORAL solution 15 GM/59 ML bottle PO PRN ×2 (21:50)
[2020-10-09] MEDS ORDERED: morphine 2 MG/ML inj. syringe IV PRN (21:50)
[2020-10-09] MEDS ORDERED: magnesium 4gm in 100ml NS 100 ML IV PRN (21:50)
[2020-10-09] MEDS ORDERED: insulin Lispro (HumaLOG) vial - multi-dose SQ SCH (21:50)
[2020-10-09] MEDS ORDERED: potassium Cl 40MEQ/1/2NS 520ml 520 ML IV PRN ×2 (21:50)
[2020-10-09] MEDS ORDERED: potassium Cl 20 mEq SR tablet PO PRN ×2 (21:50)
[2020-10-09] MEDS ORDERED: magnesium Cl slow-release 64mg tablet PO PRN (21:50)
[2020-10-09] MEDS ORDERED: MESSAGE TO PHARMACY PO ONE (21:50)
--- NOTE | 2020-10-09 22:57 | NUR ---
Report given to me by Geetha PEREZ and I will give report to Selam PEREZ.
[2020-10-09 23:05] VITALS: BP 128/53
[2020-10-09] MEDS ORDERED: CHOL20002 PO (23:06)
[2020-10-09] MEDS ORDERED: METO10TA3 PO (23:06)
[2020-10-09] MEDS ORDERED: ASPI-1144 PO (23:06)
[2020-10-09] MEDS ORDERED: LIDO700A47 TOP (23:06)
[2020-10-09] MEDS ORDERED: CLON1TAB12 PO (23:06)
--- NOTE | 2020-10-09 23:10 | NUR ---
Patient arrived on gurney from ER and walked to bed with minimum assistance.
[2020-10-10] MEDS: LORazepam 2 mg/ml vial IV PRN ×3 (00:22→21:00)
[2020-10-10] MEDS: normal saline 1000ml 1,000 ML IV SCH ×3 (00:23→15:47)
[2020-10-10] MEDS: morphine 2 MG/ML inj. syringe IV PRN ×2 (02:26→07:23)
[2020-10-10 06:00] VITALS: BP 147/84
--- NOTE | 2020-10-10 06:42 | NUR ---
REPORT TO EUNICE PEREZ
[2020-10-10] MEDS ORDERED: baclofen 10mg tablet PO PRN (06:45)
[2020-10-10 07:23] LABS: BASOPHILS # (AUTO) 0.1 X10'3 (0-0.2); BASOPHILS % (AUTO) 1.2 % (0-1); EOSINOPHILS # (AUTO) 0.2 X10'3 (0-0.9); EOSINOPHILS % (AUTO) 2.8 % (0-6); HEMATOCRIT 31.3 % (35.0-45.0); HEMOGLOBIN 10.5 g/dl (12.0-16.0); LYMPHOCYTES # (AUTO) 1.8 X10'3 (1.1-4.8); MEAN CORPUSCULAR HEMOGLOBIN 33.4 PG (27.0-31.0); MEAN CORPUSCULAR HGB CONC 33.6 g/dL (33.0-36.5); MEAN CORPUSCULAR VOLUME 99.2 FL (78-98); MEAN PLATELET VOLUME 7.4 FL (7.4-10.4); MONOCYTES # (AUTO) 0.7 X10'3 (0-0.9); MONOCYTES % (AUTO) 7.6 % (2-12); NEUTROPHILS # (AUTO) 5.8 X10'3 (1.8-7.7); NEUTROPHILS % (AUTO) 67.4 % (42-75); PLATELET COUNT 579 X10'3 (140-440); RED BLOOD COUNT 3.15 X10'6 (4.20-5.60); RED CELL DISTRIBUTION WIDTH 14.5 % (11.5-14.5); WHITE BLOOD COUNT 8.6 X10'3 (4.5-11.0)
[2020-10-10 07:51] LABS: ALBUMIN 1.9 G/DL (3.4-5.0); ANION GAP 7 (8-16); BLOOD UREA NITROGEN 3 MG/DL (7-18); BUN/CREATININE RATIO 5.7 (6.6-38.0); CALCIUM 8.2 MG/DL (8.5-10.1); CHLORIDE 103 MMOL/L (99-107); CREATININE 0.53 MG/DL (0.40-0.90); GLUCOSE 103 MG/DL (70-104); MAGNESIUM 1.9 MG/DL (1.5-2.4); POTASSIUM 3.9 MMOL/L (3.5-5.1); SODIUM 135 MMOL/L (135-145); TOTAL CARBON DIOXIDE 25.1 MMOL/L (24-32); eGFR > 90 ML/MIN
[2020-10-10] MEDS: K and/or MAG REPLACEMENT MC SCH ×2 (08:00→20:00)
[2020-10-10 10:13] VITALS: BP 121/70
[2020-10-10] MEDS: HYDROmorphone inj. 0.5 MG/0.5 ML DISP.SYRIN IV PRN ×6 (10:21→22:05)
[2020-10-10] MEDS: ondansetron/PF 4mg/2ml inj IV PRN (10:22)
--- NOTE | 2020-10-10 17:06 | NUR ---
Malnutrition/TF consult: Pt reports wt loss with decreased appetite per malnutrition risk screen with RN. 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 Per bedside RN pt reports she was not getting nutrition while at [facility]. Pt seen at bedside with SO present. Pt reports she has been unable to eat for three weeks d/t not having formula for GJ tube. Pt states she has the "machine" at home but has not had any education on how to admin TF and she does not know her TF rx. Pt states she would try PO intake consisting of eggs, oatmeal, and dry toast however was unable to tolerate. Pt reports UBW 120-125 lbs with current wt being 105 lbs. Current documented wt in EMR is 109 lbs though not scaled. Pt with no documented significant decrease in muscle strength or edema. No visible fat or muscle wasting. Per pt she was able to tolerate TF while at [facility]. RD placed TC to [facility] RD however no answer. TC to [facility]. Per Tarsha charge account clerkCHRIS Cao pt was on CHO controlled diet with thin liquids with fluctuating PO intake, occasionally refusing, and was receiving nocturnal TF from [id number] using Glucerna at 90 mL/hr (providing 1440 mL total volume/day, 1728 kcal, and 86 g protein). Per Tarsha PEREZ patient's SO brought in a black bag containing Percocet/Oxycodone and other unidentifiable medications that were not in an rx bottle with pt's name. When items were collected and held rather than given to the pt, pt opted to leave AMA stating she wanted her pills. Tarsha RN states pt was educated on leaving AMA however pt signed AMA papers and left. Per Tarsha PEREZ pt with a scaled wt of 112 lbs taken 09/24. RD informed patient's current bedside RN and CM of all information obtained from Tarsha PEREZ. Pt currently lacks a minimum of two criteria for malnutrition. Pt admit with c/o abdominal pain, N/V, bloody diarrhea and clogged feeding tube. See below for TF recommendations. LBM 10/09. Will continue to follow closely. Recommendations: 1) Continuous TF via GJ tube using Osmolite 1.2 with goal rate of 55 mL/hr. To begin at 25 mL/hr and advance by 30 mL Q8H as tolerated to goal rate. Once at goal to provide 1320 mL total volume/day, 1584 kcal, 73 g protein, and 1082 mL water 2) Additional 80 mL water flush Q4H; monitor serum Na 3) Prealbumin q Monday/ 4) Daily weights 5) Routine bowel care Addendum: 10/10/20 at [address] Amended: Links added.
--- NOTE | 2020-10-10 18:55 | NUR ---
Patient in room ORTHO 4013. I have received report from EUNICE PEREZ and had the opportunity to ask questions and assume patient care.
[2020-10-10] MEDS: insulin glargine (Lantus) pen - multi-dose SQ SCH (21:00)
[2020-10-10] MEDS ORDERED: CADD PCA waste documentation MC PRN (22:30)
[2020-10-10] MEDS ORDERED: naloxone 0.4 mg/ml inj IV PRN (22:30)
[2020-10-10] MEDS ORDERED: normal saline 1000ml 1,000 ML IV SCH (22:30)
[2020-10-10] MEDS: HYDROmorphone/NS 1 mg/ml CADD 50 ML IV SCH (23:29)
[2020-10-11] MEDS: HYDROmorphone/NS 1 mg/ml CADD 50 ML IV SCH ×4 (01:00→07:00)
[2020-10-11] MEDS: normal saline 1000ml 1,000 ML IV SCH ×2 (01:24→12:52)
[2020-10-11 06:00] VITALS: BP 121/76
--- NOTE | 2020-10-11 06:21 | NUR ---
Problems reprioritized. Patient report given, questions answered & plan of care reviewed with LEON PEREZ.
--- NOTE | 2020-10-11 06:45 | NUR ---
GOAL RATE REACHED AT O630. FREE WATER TOLERATED. DILAUDID DINKEY DISPATCHER GIVING GOOD PAIN CONTROL AND NO NAUSEA OR DIARRHEA THIS SHIFT.
[2020-10-11 07:07] LABS: BASOPHILS # (AUTO) 0.1 X10'3 (0-0.2); EOSINOPHILS # (AUTO) 0.3 X10'3 (0-0.9); HEMOGLOBIN 10.4 g/dl (12.0-16.0); MEAN CORPUSCULAR VOLUME 100.3 FL (78-98); MONOCYTES # (AUTO) 0.8 X10'3 (0-0.9)
[2020-10-11 07:15] LABS: EOSINOPHILS % (AUTO) 3.4 % (0-6); HEMATOCRIT 31.4 % (35.0-45.0); LYMPHOCYTES % (AUTO) 22.3 % (21-51); MEAN CORPUSCULAR HEMOGLOBIN 33.4 PG (27.0-31.0); MEAN CORPUSCULAR HGB CONC 33.3 g/dL (33.0-36.5); MEAN PLATELET VOLUME 7.7 FL (7.4-10.4); MONOCYTES % (AUTO) 8.6 % (2-12); NEUTROPHILS # (AUTO) 5.9 X10'3 (1.8-7.7); NEUTROPHILS % (AUTO) 64.7 % (42-75); PLATELET COUNT 608 X10'3 (140-440); RED BLOOD COUNT 3.13 X10'6 (4.20-5.60); RED CELL DISTRIBUTION WIDTH 14.2 % (11.5-14.5); WHITE BLOOD COUNT 9.1 X10'3 (4.5-11.0)
[2020-10-11] MEDS: LORazepam 2 mg/ml vial IV PRN ×3 (07:15→21:19)
[2020-10-11 07:25] LABS: ALBUMIN 1.9 G/DL (3.4-5.0); ANION GAP 9 (8-16); BLOOD UREA NITROGEN 4 MG/DL (7-18); BUN/CREATININE RATIO 6.9 (6.6-38.0); CALCIUM 7.8 MG/DL (8.5-10.1); CHLORIDE 102 MMOL/L (99-107); CREATININE 0.58 MG/DL (0.40-0.90); GLUCOSE 132 MG/DL (70-104); MAGNESIUM 1.9 MG/DL (1.5-2.4); POTASSIUM 3.7 MMOL/L (3.5-5.1); SODIUM 136 MMOL/L (135-145); TOTAL CARBON DIOXIDE 25.5 MMOL/L (24-32); eGFR > 90 ML/MIN
[2020-10-11] MEDS: K and/or MAG REPLACEMENT MC SCH (08:00)
[2020-10-11] MEDS ORDERED: oxyCODONE IR 5mg (immed. release) tablet PO PRN (08:30)
[2020-10-11] MEDS ORDERED: baclofen 10mg tablet PO PRN (08:30)
[2020-10-11] MEDS ORDERED: clonazePAM 1mg tablet PO PRN (08:30)
[2020-10-11] MEDS ORDERED: oxyCODONE/APAP 10/325mg tablet PO PRN (09:30)
[2020-10-11] MEDS ORDERED: HYDROmorphone 2mg tablet PO PRN (09:30)
[2020-10-11] MEDS ORDERED: AMYL1CAP54 PO (10:49)
[2020-10-11] MEDS ORDERED: CADD PCA waste documentation MC PRN (11:20)
--- NOTE | 2020-10-11 11:22 | NUR ---
44/91 9MG GIVEN 39ML RESIDUAL
--- NOTE | 2020-10-11 12:01 | NUR ---
PAGER ID: [phone] MESSAGE: [id number] Idris DUCKWORTH, says I have her Dilaudid order wrong. Please clarify. [phone] LEON
[2020-10-11] MEDS: carBAMazepine Ext. Release 200 MG TAB.ER.12H PO SCH ×2 (12:32→21:20)
[2020-10-11] MEDS: pantoprazole 40mg Tablet.DR PO SCH (12:32)
[2020-10-11] MEDS: HYDROmorphone inj. 0.5 MG/0.5 ML DISP.SYRIN IV PRN ×4 (12:51→23:52)
[2020-10-11] MEDS: LIPASE/PROTEASE/AMYLASE 4,200 unit CAPSULE.DR PO SCH ×2 (12:57→19:23)
[2020-10-11] MEDS ORDERED: LIPASE PO SCH (13:00)
[2020-10-11] MEDS ORDERED: AMYLASE PO SCH (13:00)
[2020-10-11] MEDS ORDERED: PROTEASE PO SCH (13:00)
[2020-10-11] MEDS: ondansetron/PF 4mg/2ml inj IV PRN (15:07)
[2020-10-11] MEDS: oxyCODONE/APAP 10/325mg tablet PO SCH ×3 (17:06→22:53)
[2020-10-11 18:00] VITALS: BP 116/70
[2020-10-11] MEDS: insulin glargine (Lantus) pen - multi-dose SQ SCH (21:00)
[2020-10-11] MEDS: insulin regular, human U-100 3ml vial - multi-dose SQ SCH (21:25)
[2020-10-11 22:00] VITALS: BP 105/71
[2020-10-12 02:00] VITALS: BP 97/57
[2020-10-12] MEDS: normal saline 1000ml 1,000 ML IV SCH ×3 (02:20→19:50)
[2020-10-12] MEDS: ondansetron/PF 4mg/2ml inj IV PRN (03:18)
[2020-10-12] MEDS: HYDROmorphone inj. 0.5 MG/0.5 ML DISP.SYRIN IV PRN ×3 (03:22→10:33)
[2020-10-12] MEDS: oxyCODONE/APAP 10/325mg tablet PO SCH ×2 (04:00→08:07)
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
[2020-10-12 05:55] LABS: BASOPHILS # (AUTO) 0.1 X10'3 (0-0.2); BASOPHILS % (AUTO) 0.8 % (0-1); EOSINOPHILS # (AUTO) 0.2 X10'3 (0-0.9); EOSINOPHILS % (AUTO) 2.2 % (0-6); HEMATOCRIT 29.6 % (35.0-45.0); HEMOGLOBIN 9.8 g/dl (12.0-16.0); LYMPHOCYTES # (AUTO) 1.5 X10'3 (1.1-4.8); LYMPHOCYTES % (AUTO) 14.1 % (21-51); MEAN CORPUSCULAR HEMOGLOBIN 33.2 PG (27.0-31.0); MEAN CORPUSCULAR VOLUME 100.5 FL (78-98); MONOCYTES # (AUTO) 0.7 X10'3 (0-0.9); MONOCYTES % (AUTO) 6.9 % (2-12); NEUTROPHILS # (AUTO) 8.2 X10'3 (1.8-7.7); PLATELET COUNT 593 X10'3 (140-440); RED BLOOD COUNT 2.95 X10'6 (4.20-5.60); RED CELL DISTRIBUTION WIDTH 14.5 % (11.5-14.5); WHITE BLOOD COUNT 10.8 X10'3 (4.5-11.0)
--- NOTE | 2020-10-12 05:56 | NUR ---
REQUESTED PAIN MEDS AFTER WORKING ON UNPLUGGING HER PEG TUBE, BUT REFUSED PERCOCET D/T "NAUSEA". WANTED DILAUDID INSTEAD. GAVE ZOFRAN FOR THE NAUSEA THEN ADMINISTERED DILAUDID. PATIENT WAS RESTING COMFORTABLY WHEN I RECHECKED ON HER. NON ADMISTRATED THE PERCOCET SHE WILL HAVE ANOTHER DOSE AT 0800
[2020-10-12 06:00] VITALS: BP 104/62
[2020-10-12 06:10] LABS: ALBUMIN 1.9 G/DL (3.4-5.0); ANION GAP 8 (8-16); CALCIUM 7.5 MG/DL (8.5-10.1); CHLORIDE 105 MMOL/L (99-107); CREATININE 0.49 MG/DL (0.40-0.90); GLUCOSE 160 MG/DL (70-104); MAGNESIUM 1.9 MG/DL (1.5-2.4); POTASSIUM 3.8 MMOL/L (3.5-5.1); PREALBUMIN 14.7 MG/DL (19-36); SODIUM 138 MMOL/L (135-145); TOTAL CARBON DIOXIDE 25.5 MMOL/L (24-32); eGFR > 90 ML/MIN
[2020-10-12 06:17] LABS: BLOOD UREA NITROGEN 5 MG/DL (7-18); BUN/CREATININE RATIO 10.2 (6.6-38.0)
--- NOTE | 2020-10-12 06:46 | NUR ---
Problems reprioritized. Patient report given, questions answered & plan of care reviewed with LEON PEREZ.
[2020-10-12] MEDS: pantoprazole 40mg Tablet.DR PO SCH (07:48)
[2020-10-12] MEDS: LORazepam 2 mg/ml vial IV PRN ×3 (07:48→20:33)
[2020-10-12] MEDS: K and/or MAG REPLACEMENT MC SCH ×2 (08:00→20:00)
[2020-10-12] MEDS: carBAMazepine Ext. Release 200 MG TAB.ER.12H PO SCH ×3 (08:08→20:33)
[2020-10-12] MEDS: LIPASE/PROTEASE/AMYLASE 4,200 unit CAPSULE.DR PO SCH ×3 (08:09→18:48)
[2020-10-12] MEDS: insulin regular, human U-100 3ml vial - multi-dose SQ SCH ×2 (12:24→20:29)
--- NOTE | 2020-10-12 13:17 | NUR ---
RN TC: RN reports pt plans for discharge and MD requesting home TF recs. Written TF recs placed in pt chart and RD notified RN of continuous home recs provided. Addendum: 10/12/20 at [address] Amended: Links added.
[2020-10-12] MEDS: HYDROmorphone 2mg tablet PO PRN ×3 (14:55→23:44)
[2020-10-12 18:00] VITALS: BP 105/66
[2020-10-12] MEDS: insulin glargine (Lantus) pen - multi-dose SQ SCH (21:00)
--- NOTE | 2020-10-12 22:40 | NUR ---
PT REFUSED TO TAKE ANJUM TUBE OUT SAYING "NOT NOW"
[2020-10-13] MEDS: insulin regular, human U-100 3ml vial - multi-dose SQ SCH ×2 (01:58→09:09)
--- NOTE | 2020-10-13 05:00 | NUR ---
ATTEMPTED TO PULL ANJUM DRAIN BUT IT WILL NOT COME OUT EASILY. I USED MORE FORCE BUT STILL NOT COMING AND WAS GIVING PT PAIN. ILL LEAVE IT IN FOR NOW.
[2020-10-13] MEDS: LORazepam 2 mg/ml vial IV PRN (05:08)
[2020-10-13] MEDS: HYDROmorphone 2mg tablet PO PRN (05:34)
[2020-10-13] MEDS: normal saline 1000ml 1,000 ML IV SCH (05:36)
[2020-10-13 06:00] VITALS: BP 109/69
[2020-10-13 06:06] LABS: BASOPHILS # (AUTO) 0.1 X10'3 (0-0.2); BASOPHILS % (AUTO) 0.8 % (0-1); EOSINOPHILS # (AUTO) 0.4 X10'3 (0-0.9); EOSINOPHILS % (AUTO) 4.1 % (0-6); HEMATOCRIT 30.9 % (35.0-45.0); HEMOGLOBIN 10.3 g/dl (12.0-16.0); LYMPHOCYTES # (AUTO) 1.6 X10'3 (1.1-4.8); LYMPHOCYTES % (AUTO) 17.2 % (21-51); MEAN CORPUSCULAR HEMOGLOBIN 33.1 PG (27.0-31.0); MEAN CORPUSCULAR HGB CONC 33.3 g/dL (33.0-36.5); MEAN CORPUSCULAR VOLUME 99.5 FL (78-98); MEAN PLATELET VOLUME 7.7 FL (7.4-10.4); MONOCYTES # (AUTO) 0.8 X10'3 (0-0.9); MONOCYTES % (AUTO) 8.5 % (2-12); NEUTROPHILS # (AUTO) 6.3 X10'3 (1.8-7.7); NEUTROPHILS % (AUTO) 69.4 % (42-75); PLATELET COUNT 650 X10'3 (140-440); RED BLOOD COUNT 3.11 X10'6 (4.20-5.60); RED CELL DISTRIBUTION WIDTH 14.4 % (11.5-14.5)
[2020-10-13 06:13] LABS: ANION GAP 7 (8-16); BLOOD UREA NITROGEN 5 MG/DL (7-18); BUN/CREATININE RATIO 9.4 (6.6-38.0); CHLORIDE 105 MMOL/L (99-107); CREATININE 0.53 MG/DL (0.40-0.90); GLUCOSE 100 MG/DL (70-104); SODIUM 138 MMOL/L (135-145); TOTAL CARBON DIOXIDE 25.7 MMOL/L (24-32); eGFR > 90 ML/MIN
--- NOTE | 2020-10-13 06:20 | NUR ---
Patient in room ORTHO 4017. I have received report from Ce PEREZ and had the opportunity to ask questions and assume patient care.
--- NOTE | 2020-10-13 06:22 | NUR ---
Problems reprioritized. Patient report given, questions answered & plan of care reviewed with CHRIS LEBRON.
--- NOTE | 2020-10-13 06:45 | NUR ---
Patient in room ORTHO 4017. I have received report from CHRIS Encinas and had the opportunity to ask questions and assume patient care.
[2020-10-13] MEDS: pantoprazole 40mg Tablet.DR PO SCH (09:04)
[2020-10-13] MEDS: carBAMazepine Ext. Release 200 MG TAB.ER.12H PO SCH (09:04)
[2020-10-13] MEDS: LIPASE/PROTEASE/AMYLASE 4,200 unit CAPSULE.DR PO SCH (09:05)
--- NOTE | 2020-10-13 10:15 | NUR ---
Pt left AMA. Pt stated to Dr Cruz that she needed instruction on how to feed herself at home. Payroll Coordinator was called and arrangements were being made for Pt to have trainnign from [facility] pharmacy to go over feeding schedules and how to's. Pt insistent on having Diluted increased to 8mg instead of 4mg PO. Dr Agreed but she would learn to bolus feed herself so she can safely go home. Pt states she is just going to go home after her next dose of Diluted. Pt educated and told she needed to wait 2 hrs after medication is given and going home only if Dr agreed to DC. Pt states she was going to go AMA and she was able to teach back about bolus feeding and how she alreay had cans of feeds at home. She states she only came to the hospital because her PCP told her to and she was unable to use her PEG tube. Now that she is able, she was just going to go home. Pt states that we do not know enough about her history to properly care for her. She felt she would be safer at home because she knows what she is doing. Dr Cruz was paged to informed him of the events, charge is aware of AMA Intensions. Pt got her IV removed, intact, tube feeding was stopped and tube was flushed with 80 mls of water. Pt educated about checking her glucose levels and insulin use. Pt got dressed, ANJUM was removed by Dr Cruz. Pt a & Ox4. Pt's came picked up pt and she walked out to the front where she got in their car and drove off.
== END 2020-10-13 10:05 | disposition left against medical advice (07) | DRG 251 ==
LOC: ER 13:33 → ED HOLD 21:50 → ORTHO 4S 23:14
PROVIDERS: ADMIT Internal Medicine; ATTEND Internal Medicine
PROC: BW211ZZ Computerized Tomography (CT Scan) of Abdomen and Pelvis using Low Osmolar Contrast (ICD-10-PCS; principal; 2020-10-09)
DX: R10.9 Unspecified abdominal pain (principal); E43 Unspecified severe protein-calorie malnutrition; K86.89 Other specified diseases of pancreas; E11.9 Type 2 diabetes mellitus without complications; E87.6 Hypokalemia; D63.8 Anemia in other chronic diseases classified elsewhere; F12.90 Cannabis use, unspecified, uncomplicated; G40.909 Epilepsy, unspecified, not intractable, without status epilepticus; G43.909 Migraine, unspecified, not intractable, without status migrainosus; K92.1 Melena; Z53.29 Procedure and treatment not carried out because of patient's decision for other reasons; F41.9 Anxiety disorder, unspecified; G89.29 Other chronic pain; J45.909 Unspecified asthma, uncomplicated; R62.7 Adult failure to thrive; Z79.4 Long term (current) use of insulin; Z90.710 Acquired absence of both cervix and uterus; Z90.81 Acquired absence of spleen; Z88.1 Allergy status to other antibiotic agents; Z68.1 Body mass index [BMI] 19.9 or less, adult
CPT/HCPCS: 36415; 74177; 80048; 80053; 82948; 83036; 83735; 84134; 84145; 85025; 87081; 96374; 97116; 97161; 99285; G0378; J1170; J1815; J2060; J2270; J2405; J3480; J7030; Q9967

== ENCOUNTER 2021-05-19 19:46 | Inpatient (IN) | payer MEDICAID ==
[~2021-05-19] VITALS: Ht 167.6 cm; Wt 45.5 kg
[~2021-05-19 19:46] MED LIST changes: +AMYL1CAP54 PO; +CLON1TAB12 PO; +LIDO700A47 TOP; -LIPA1CAP18 PO; +METO10TA3 PO
[2021-05-19 20:32] LABS: BASOPHILS # (AUTO) 0.2 X10'3 (0-0.2); BASOPHILS % (AUTO) 1.3 % (0-1); EOSINOPHILS # (AUTO) 0.3 X10'3 (0-0.9); EOSINOPHILS % (AUTO) 2.2 % (0-6); HEMATOCRIT 34.3 % (35.0-45.0); LYMPHOCYTES # (AUTO) 2.5 X10'3 (1.1-4.8); LYMPHOCYTES % (AUTO) 18.7 % (21-51); MEAN CORPUSCULAR HEMOGLOBIN 34.2 PG (27.0-31.0); MEAN CORPUSCULAR HGB CONC 34.9 g/dL (33.0-36.5); MEAN PLATELET VOLUME 7.8 FL (7.4-10.4); MONOCYTES % (AUTO) 7.3 % (2-12); NEUTROPHILS # (AUTO) 9.4 X10'3 (1.8-7.7); NEUTROPHILS % (AUTO) 70.5 % (42-75); PLATELET COUNT 369 X10'3 (140-440); RED BLOOD COUNT 3.49 X10'6 (4.20-5.60); RED CELL DISTRIBUTION WIDTH 14.5 % (11.5-14.5); WHITE BLOOD COUNT 13.3 X10'3 (4.5-11.0)
[2021-05-19 20:38] LABS: URINE HCG NEGATIVE (NEG)
[2021-05-19 20:40] LABS: CLARITY,URINE SLIGHTLY CLOUDY (Clear); COLOR,URINE YELLOW (Yellow); GLUCOSE, URINE 500 mg/dl (Neg); KETONES,URINE NEGATIVE (Neg); LEUKOCYTE ESTERASE ,URINE NEGATIVE (Neg); NITRITES, URINE NEGATIVE (Neg); OCCULT BLOOD,URINE NEGATIVE (Neg); PROTEIN,URINE NEGATIVE (Neg); UA COLLECTION TYPE CLN CATCH MIDSTREAM; UROBILINOGEN,URINE 0.2 E.U/dL (0.2-1.0)
[2021-05-19 20:46] LABS: ALANINE AMINOTRANSFERASE 39 U/L (12-78); ALBUMIN 3.1 G/DL (3.4-5.0); ALKALINE PHOSPHATASE 120 IU/L (46-116); ANION GAP 8 (8-16); ASPARTATE AMINO TRANSFERASE 24 U/L (10-37); BILIRUBIN,TOTAL 0.2 MG/DL (0.1-1.0); BLOOD UREA NITROGEN 7 MG/DL (7-18); CALCIUM 8.6 MG/DL (8.5-10.1); CHLORIDE 102 MMOL/L (99-107); CREATININE 0.87 MG/DL (0.40-0.90); GLUCOSE 341 MG/DL (70-104); LIPASE < 50 U/L (73-393); SODIUM 138 MMOL/L (135-145); TOTAL CARBON DIOXIDE 27.6 MMOL/L (24-32); TOTAL PROTEIN 6.2 G/DL (6.4-8.2); eGFR 71 ML/MIN
[2021-05-19 20:48] LABS: SQUAMOUS EPITHELIAL CELL,UR FEW /LPF (FEW)
[2021-05-19 20:49] LABS: BACTERIA,URINE NONE SEEN /HPF (Neg); RBC,URINE 0-2 /HPF (0-2); WBC,URINE 0-4 /HPF (0-4)
[2021-05-19] MEDS ORDERED: FLUO10CA28 PO (23:29)
[2021-05-19] MEDS ORDERED: IBUP-1986 PO (23:30)
[2021-05-19] MEDS ORDERED: iohexol 300mg/ml 100ml inj. ONE (23:43)
[2021-05-19] MEDS ORDERED: HYDROmorphone 1 mg/ml syringe IV ONE (23:55)
[2021-05-19] MEDS ORDERED: normal saline 1000ml 1,000 ML IV ONE (23:55)
[2021-05-20] MEDS ORDERED: ondansetron/PF 4mg/2ml inj IV ONE (00:15)
--- NOTE | 2021-05-20 00:57 | NUR ---
hospitalist at bedside
[2021-05-20] MEDS ORDERED: non-formulary drug (Oxycodone Hcl 1 TAB) PO PRN (01:25)
[2021-05-20] MEDS ORDERED: ondansetron 4mg rapidly disintigrating tab PO PRN ×2 (01:25→01:30)
[2021-05-20] MEDS ORDERED: diphenhydrAMINE 25mg capsule PO PRN (01:30)
[2021-05-20] MEDS ORDERED: mag hydrox/Alum hydrox/simeth 30ml oral suspension PO PRN (01:30)
[2021-05-20] MEDS ORDERED: morphine 2 MG/ML inj. syringe IV PRN (01:30)
[2021-05-20] MEDS ORDERED: acetaminophen 325mg tablet PO PRN ×2 (01:30)
[2021-05-20] MEDS ORDERED: magnesium hydroxide 30ml (MOM) UD suspension PO PRN (01:30)
[2021-05-20] MEDS ORDERED: HYDROcodone/acetaminophen 5mg/325mg tablet PO PRN (01:30)
[2021-05-20] MEDS ORDERED: HYDROcodone/acetaminophen 10/325mg tab PO PRN (01:30)
[2021-05-20] MEDS ORDERED: bisacodyl 10mg suppository rectal RC PRN (01:30)
[2021-05-20] MEDS ORDERED: HYDROmorphone inj. 0.5 MG/0.5 ML DISP.SYRIN IV PRN (01:30)
[2021-05-20] MEDS ORDERED: acetaminophen 650mg rectal suppository RC PRN (01:30)
[2021-05-20] MEDS ORDERED: diphenhydrAMINE 50 mg/ml inj IV PRN (01:30)
[2021-05-20] MEDS ORDERED: glucagon, human recombinant 1mg kit SUBCUT PRN (01:35)
[2021-05-20] MEDS ORDERED: dextrose 50%-water 50ml dispensing syringe IV PRN ×2 (01:35)
[2021-05-20] MEDS ORDERED: MESSAGE TO PHARMACY PO ONE (01:35)
[2021-05-20] MEDS ORDERED: dextrose ORAL solution 15 GM/59 ML bottle PO PRN ×2 (01:35)
[2021-05-20] MEDS ORDERED: ringers solution, lacted 1,000 ML IV ONE (01:40)
[2021-05-20 01:50] LABS: HEMOGLOBIN A1C 12.7 % (4.5-6.2)
[2021-05-20] MEDS: morphine 2 MG/ML inj. syringe IV PRN ×7 (01:52→22:32)
[2021-05-20] MEDS: clonazePAM 1mg tablet PO PRN (01:52)
[2021-05-20 02:08] LABS: CREATINE KINASE 152 U/L (26-192); PHOSPHORUS 3.8 MG/DL (2.3-4.5)
[2021-05-20 02:33] LABS: CARBAMAZEPINE (TEGRETOL) 0.7 UG/ML (4.0-12.0)
[2021-05-20 02:36] LABS: PARTIAL THROMBOPLASTIN TIME 28 SECONDS (22-32)
[2021-05-20] MEDS: dextrose 5%-1/2 normal saline 1,000 ML IV SCH ×3 (03:12→21:30)
--- NOTE | 2021-05-20 03:31 | NUR ---
Patient is slightly upset that hospitalist dc dilaudid due to her low blood pressure. Called Dr. Harrison for breakthrough 1x dose of morphine but he said no. Offered PO pain meds and patient declined. Will give morphine when time appropriate.
--- NOTE | 2021-05-20 04:13 | NUR ---
patient bs 167 after two fluid boluses.
[2021-05-20] MEDS: ondansetron/PF 4mg/2ml inj IV PRN ×2 (05:53→12:55)
[2021-05-20] MEDS ORDERED: pantoprazole 40mg Tablet.DR PO SCH (07:30)
[2021-05-20] MEDS ORDERED: magnesium Cl slow-release 64mg tablet PO PRN (09:10)
[2021-05-20] MEDS ORDERED: magnesium 4gm in 100ml NS 100 ML IV PRN (09:10)
[2021-05-20] MEDS ORDERED: potassium Cl 20 mEq SR tablet PO PRN ×2 (09:10)
[2021-05-20] MEDS ORDERED: potassium Cl 40MEQ/1/2NS 520ml 520 ML IV PRN (09:10)
[2021-05-20] MEDS: nicotine 14mg patch - 24hr TD SCH (09:34)
[2021-05-20] MEDS: FLUoxetine 10mg capsule PO SCH ×3 (09:34→21:25)
[2021-05-20] MEDS: pantoprazole 40 MG vial IV SCH (09:35)
[2021-05-20] MEDS: LIDOcaine 5% patch TP SCH ×2 (09:35→20:00)
[2021-05-20] MEDS: metoclopramide 10mg tablet PO SCH ×2 (09:36→22:33)
[2021-05-20] MEDS: docusate sod 100mg capsule PO SCH ×2 (09:39→21:17)
[2021-05-20] MEDS: LIPASE/PROTEASE/AMYLASE 16,800 UNIT CAPSULE.DR PO SCH ×3 (09:39→21:17)
[2021-05-20] MEDS: heparin, porcine 5000 units/ml vial SQ SCH ×2 (09:40→21:18)
[2021-05-20] MEDS: carBAMazepine 100mg chewable tablet PO SCH ×3 (10:02→21:16)
[2021-05-20 10:47] LABS: URINE AMPHETAMINE SCREEN NEGATIVE (Neg); URINE BARBITUATE SCREEN NEGATIVE (Neg); URINE BENZODIAZEPINES SCREEN NEGATIVE (Neg); URINE CANNABINOID SCREEN POSITIVE (Neg); URINE COCAINE SCREEN NEGATIVE (Neg); URINE METHADONE SCREEN NEGATIVE (Neg); URINE OPIATE SCREEN NEGATIVE (Neg); URINE PHENCYCLIDINE SCREEN NEGATIVE (Neg)
[2021-05-20] MEDS: K and/or MAG REPLACEMENT MC SCH (15:21)
--- NOTE | 2021-05-20 17:27 | NUR ---
Patient in room SHAZIA 356B. I have received report from CHRIS THOMPSON and had the opportunity to ask questions and assume patient care.
[2021-05-20 18:10] VITALS: BP 124/82
--- NOTE | 2021-05-20 19:16 | NUR ---
Problems reprioritized. Patient report given, questions answered & plan of care reviewed with CHRIS CORRAL.
[2021-05-20] MEDS ORDERED: temazepam 15mg capsule PO PRN (21:00)
[2021-05-21 06:13] LABS: BASOPHILS # (AUTO) 0.1 X10'3 (0-0.2); EOSINOPHILS # (AUTO) 0.2 X10'3 (0-0.9); EOSINOPHILS % (AUTO) 2.1 % (0-6); HEMOGLOBIN 13.3 g/dl (12.0-16.0); LYMPHOCYTES # (AUTO) 1.6 X10'3 (1.1-4.8); MEAN CORPUSCULAR HEMOGLOBIN 33.7 PG (27.0-31.0); MEAN CORPUSCULAR HGB CONC 34.2 g/dL (33.0-36.5); MEAN CORPUSCULAR VOLUME 98.5 FL (78-98); NEUTROPHILS # (AUTO) 5.3 X10'3 (1.8-7.7)
[2021-05-21 06:17] LABS: BASOPHILS % (AUTO) 1.3 % (0-1); HEMATOCRIT 38.8 % (35.0-45.0); LYMPHOCYTES % (AUTO) 21.2 % (21-51); MEAN PLATELET VOLUME 8.6 FL (7.4-10.4); MONOCYTES # (AUTO) 0.4 X10'3 (0-0.9); MONOCYTES % (AUTO) 5.5 % (2-12); NEUTROPHILS % (AUTO) 69.9 % (42-75); PLATELET COUNT 416 X10'3 (140-440); RED BLOOD COUNT 3.94 X10'6 (4.20-5.60); RED CELL DISTRIBUTION WIDTH 14.3 % (11.5-14.5); WHITE BLOOD COUNT 7.6 X10'3 (4.5-11.0)
--- NOTE | 2021-05-21 06:30 | NUR ---
I have received report from Fior PEREZ and had the opportunity to ask questions and assume patient care.
[2021-05-21 06:49] LABS: ALANINE AMINOTRANSFERASE 31 U/L (12-78); ALBUMIN 2.7 G/DL (3.4-5.0); ALBUMIN/GLOBULIN RATIO 0.8 (1.1-1.5); ALKALINE PHOSPHATASE 104 IU/L (46-116); ANION GAP 9 (8-16); ASPARTATE AMINO TRANSFERASE 21 U/L (10-37); BILIRUBIN,TOTAL 0.2 MG/DL (0.1-1.0); BLOOD UREA NITROGEN 6 MG/DL (7-18); BUN/CREATININE RATIO 8.8 (6.6-38.0); CALCIUM 8.7 MG/DL (8.5-10.1); CHLORIDE 100 MMOL/L (99-107); CHOL/HDL RATIO 2.2 (0.00-4.99); CHOLESTEROL 157 MG/DL (0-200); CREATININE 0.68 MG/DL (0.40-0.90); GLUCOSE 264 MG/DL (70-104); HDL CHOLESTEROL 70 MG/DL (35-60); LDL CHOLESTEROL 56 MG/DL (50-100); MAGNESIUM 1.8 MG/DL (1.5-2.4); PHOSPHORUS 3.4 MG/DL (2.3-4.5); POTASSIUM 4.2 MMOL/L (3.5-5.1); SODIUM 137 MMOL/L (135-145); TOTAL CARBON DIOXIDE 27.9 MMOL/L (24-32); TOTAL PROTEIN 5.9 G/DL (6.4-8.2); TRIGLYCERIDES 160 MG/DL (20-135); eGFR > 90 ML/MIN
--- NOTE | 2021-05-21 06:50 | NUR ---
Problems reprioritized. Patient report given, questions answered & plan of care reviewed with [].
[2021-05-21] MEDS: morphine 2 MG/ML inj. syringe IV PRN ×2 (06:56→10:51)
[2021-05-21] MEDS: FLUoxetine 10mg capsule PO SCH ×3 (06:58→20:18)
[2021-05-21] MEDS: pantoprazole 40 MG vial IV SCH (06:58)
[2021-05-21] MEDS: LIPASE/PROTEASE/AMYLASE 16,800 UNIT CAPSULE.DR PO SCH ×3 (06:59→17:28)
[2021-05-21] MEDS: heparin, porcine 5000 units/ml vial SQ SCH ×2 (06:59→20:16)
[2021-05-21] MEDS: nicotine 14mg patch - 24hr TD SCH (07:00)
[2021-05-21] MEDS: docusate sod 100mg capsule PO SCH ×2 (07:06→20:18)
[2021-05-21] MEDS: LIDOcaine 5% patch TP SCH ×2 (07:06→20:00)
[2021-05-21 07:49] VITALS: BP 133/80
[2021-05-21] MEDS: K and/or MAG REPLACEMENT MC SCH ×2 (08:00→20:00)
[2021-05-21] MEDS: insulin Lispro (HumaLOG) vial - multi-dose SQ SCH ×2 (10:04→15:16)
[2021-05-21] MEDS: dextrose 5%-1/2 normal saline 1,000 ML IV SCH (10:14)
[2021-05-21] MEDS: carBAMazepine 100mg chewable tablet PO SCH ×3 (10:20→17:27)
--- NOTE | 2021-05-21 11:03 | NUR ---
PAGER ID: [phone] MESSAGE: [phone] I have the PICC consent for you to sign, I can run it to you if you need me to . [phone]
[2021-05-21] MEDS: metoclopramide 10mg tablet PO SCH ×2 (11:58→20:19)
[2021-05-21 12:00] VITALS: BP 124/75
[2021-05-21] MEDS: HYDROmorphone 1 mg/ml syringe IV PRN ×3 (12:02→20:25)
[2021-05-21] MEDS: ondansetron/PF 4mg/2ml inj IV PRN (12:05)
--- NOTE | 2021-05-21 17:39 | NUR ---
DM/malnutrition consults: Pt reports 14-23 lb wt loss with decreased appetite per malnutrition risk screen with RN. Pt seen at bedside reports weighing 130 lbs in November 2019, though would not clarify if this is her UBW. Pt reports weighing 100 lbs ~1 month ago, current wt of 100 lbs is not scaled though stable with documented wt h/o 100 lbs 10/07/20 per EMR, however also not scaled. Per RD note at past admit 10/10/20 pt with a scaled wt at [facility] of 112 lbs taken 09/24/20. Pt reports fluctuating PO intake HEEL EMERY BUFFER r/t fluctuating tolerance to PO intake. Pt denies any specific food/liquids being more or less tolerated. Currently on a clear liquid diet documented with 100% PO intake at breakfast followed by refusal of lunch. Pt does endorse a good appetite and desire to eat and requests extra chicken broth and a lemon quechan soda with meals, d/w dietary. Of note pt previously receiving nocturnal TF with daily PO diet while at [facility] earlier this year and was also receiving TF and was sent home on TF via GJ tube at past admit per RD note 10/10/20. Pt appears thin though no visible fat or muscle wasting. No documented decrease in muscle strength or edema. Given uncertainty in weight and PO intake HEEL EMERY BUFFER pt currently lacks a minimum of two criteria for malnutrition. Pt with T1DM following pancreatectomy, current A1c is 12.7%. Pt provided with written and verbal DM education. Pt states she takes pancreatic enzymes with each meal and sees an appraisal technician monthly. Pt reports she has long lasting and short acting insulin, though states she only takes the long lasting insulin per rx and does not take meal coverage insulin. Pt also reports only checking her BG levels about once a day. Pt states she doesn't check her BG levels because she doesn't want to risk falling in transportation to the glucometer. RD attempted to assist pt in making achievable goals to ensure she can check her BG levels and monitor need for short acting insulin however pt appears unwilling to make modifications at this time. Pt provided with RD contact information and encouraged to reach out. Will continue to follow. Addendum: 05/21/21 at [address] Amended: Links added.
--- NOTE | 2021-05-21 18:23 | NUR ---
Problems reprioritized. Patient report given, questions answered & plan of care reviewed with Fior PEREZ.
--- NOTE | 2021-05-21 19:31 | NUR ---
Spoke with patient concerning follow-up physician for diabetes. Is followed at [facility] and her physician is Dr. Lynn Mccormick. Pt states she sees her every 28 days and her physician drove her to the hospital.
[2021-05-21 20:00] VITALS: BP 121/78
[2021-05-21] MEDS: clonazePAM 1mg tablet PO PRN (20:18)
[2021-05-22] VITALS: BP 95/62
[2021-05-22] MEDS: HYDROmorphone 1 mg/ml syringe IV PRN ×4 (00:47→12:17)
--- NOTE | 2021-05-22 06:37 | NUR ---
Patient in room SHAZIA 356. I have received report from Fior PEREZ and had the opportunity to ask questions and assume patient care.
--- NOTE | 2021-05-22 06:48 | NUR ---
Spoke to the pharmacist about the TPN order that has not started yet and ordered last night. Pharmacist told me that she could not do it until the registered dietitian put an order for TPN. Will follow up.
[2021-05-22 07:00] VITALS: BP 139/90
[2021-05-22] MEDS: LIPASE/PROTEASE/AMYLASE 16,800 UNIT CAPSULE.DR PO SCH ×2 (08:00→14:07)
[2021-05-22] MEDS: LIDOcaine 5% patch TP SCH (08:00)
[2021-05-22] MEDS: K and/or MAG REPLACEMENT MC SCH (08:00)
[2021-05-22] MEDS ORDERED: heparin, porcine 5000 units/ml vial SQ SCH (08:00)
[2021-05-22] MEDS: nicotine 14mg patch - 24hr TD SCH (08:54)
[2021-05-22] MEDS: carBAMazepine 100mg chewable tablet PO SCH ×2 (08:55→14:07)
[2021-05-22] MEDS: pantoprazole 40 MG vial IV SCH (08:57)
[2021-05-22] MEDS: FLUoxetine 10mg capsule PO SCH ×2 (08:58→12:16)
[2021-05-22] MEDS: docusate sod 100mg capsule PO SCH (08:58)
[2021-05-22] MEDS: heparin, porcine 5000 units/ml vial SQ SCH (08:59)
[2021-05-22] MEDS: clonazePAM 1mg tablet PO PRN (09:02)
[2021-05-22] MEDS: insulin Lispro (HumaLOG) vial - multi-dose SQ SCH ×2 (09:08→14:11)
[2021-05-22] MEDS: metoclopramide 10mg tablet PO SCH (10:08)
--- NOTE | 2021-05-22 10:22 | NUR ---
Spoke to dietitian Marika about starting this patient on TPN, she said she'll get it done today. She asked me to reorder clear liquid diet to ensure patient will get her lunch tray.
--- NOTE | 2021-05-22 10:52 | NUR ---
TPN consult: Pt with a PICC in place and to begin TPN. Unable to meet 100% of patient's estimated energy needs on TPN without daily lipids. Lipids to be provided two times a week d/t product shortage. Per RN pt continues on clear liquid diet with TPN at this time. TPN recommendations have been d/w clinical pharmacist. LBM 05/21, documented as formed and pt receiving routine bowel care. Will continue to follow closely. Recommendations: 1) Continuous TPN per MD using 2:1 Clinimix-E 11/19 with goal rate of 60 mL/hr with additional 250 mL 20% intralipids to run at 20.83 mL/hr for 12 hours on Tuesdays and Fridays. To provide 1440 mL total volume/day, 72 g AA, 288 g dextrose (4.40 mg/kg/min), and 1267 kcal. Average 1409 kcal/day with lipids 2) Advance to CHO controlled diet as medically indicated 3) Prealbumin and TG q Monday/ 4) Daily scaled weights 5) Routine bowel care Addendum: 05/22/21 at [address] Amended: Links added.
[2021-05-22 11:00] VITALS: BP 137/78
[2021-05-22] MEDS ORDERED: HYDROmorphone 1 mg/ml syringe IV PRN (12:20)
[2021-05-22 13:23] LABS: BASOPHILS # (AUTO) 0.1 X10'3 (0-0.2); EOSINOPHILS # (AUTO) 0.1 X10'3 (0-0.9); EOSINOPHILS % (AUTO) 0.9 % (0-6); MEAN PLATELET VOLUME 8.8 FL (7.4-10.4); MONOCYTES # (AUTO) 0.6 X10'3 (0-0.9); NEUTROPHILS # (AUTO) 3.7 X10'3 (1.8-7.7)
[2021-05-22 13:25] LABS: BASOPHILS % (AUTO) 0.8 % (0-1); HEMOGLOBIN 12.2 g/dl (12.0-16.0); LYMPHOCYTES # (AUTO) 2.1 X10'3 (1.1-4.8); LYMPHOCYTES % (AUTO) 32.4 % (21-51); MEAN CORPUSCULAR HEMOGLOBIN 33.3 PG (27.0-31.0); MEAN CORPUSCULAR HGB CONC 33.8 g/dL (33.0-36.5); MEAN CORPUSCULAR VOLUME 98.5 FL (78-98); NEUTROPHILS % (AUTO) 56.9 % (42-75); PLATELET COUNT 363 X10'3 (140-440); RED BLOOD COUNT 3.65 X10'6 (4.20-5.60); RED CELL DISTRIBUTION WIDTH 14.6 % (11.5-14.5); WHITE BLOOD COUNT 6.6 X10'3 (4.5-11.0)
[2021-05-22] MEDS ORDERED: potassium Cl 40MEQ/1/2NS 520ml 520 ML IV PRN ×2 (13:30)
[2021-05-22] MEDS ORDERED: magnesium Cl slow-release 64mg tablet PO PRN (13:30)
[2021-05-22] MEDS ORDERED: magnesium 2GM in 50ml NS 50 ML IV PRN (13:30)
[2021-05-22] MEDS ORDERED: Dextrose 10%-water IV solution 1,000 ML IV PRN (13:30)
[2021-05-22] MEDS ORDERED: potassium Cl 20 mEq SR tablet PO PRN ×2 (13:30)
[2021-05-22] MEDS ORDERED: magnesium 4gm in 100ml NS 100 ML IV PRN (13:30)
[2021-05-22 15:28] LABS: ALANINE AMINOTRANSFERASE 33 U/L (12-78); ALBUMIN 2.6 G/DL (3.4-5.0); ALBUMIN/GLOBULIN RATIO 0.9 (1.1-1.5); ALKALINE PHOSPHATASE 94 IU/L (46-116); ANION GAP 8 (8-16); ASPARTATE AMINO TRANSFERASE 23 U/L (10-37); BILIRUBIN,TOTAL 0.2 MG/DL (0.1-1.0); BLOOD UREA NITROGEN 3 MG/DL (7-18); BUN/CREATININE RATIO 4.8 (6.6-38.0); CALCIUM 7.9 MG/DL (8.5-10.1); CHLORIDE 107 MMOL/L (99-107); CREATININE 0.63 MG/DL (0.40-0.90); GLUCOSE 161 MG/DL (70-104); MAGNESIUM 1.6 MG/DL (1.5-2.4); PHOSPHORUS 3.2 MG/DL (2.3-4.5); POTASSIUM 3.5 MMOL/L (3.5-5.1); PREALBUMIN 18.6 MG/DL (19-36); SODIUM 143 MMOL/L (135-145); TOTAL CARBON DIOXIDE 28.2 MMOL/L (24-32); TOTAL PROTEIN 5.6 G/DL (6.4-8.2); TRIGLYCERIDES 35 MG/DL (20-135); eGFR > 90 ML/MIN
--- NOTE | 2021-05-22 15:29 | NUR ---
Patient suddenly wanted to leave [facility], she states "he's not going to take care of my animals, I need to go home!" When I asked her who is "he", patient states "my ". Patient was tearful while talking to me. I asked patient if she really sure she wants to leave [facility], she said yes. Charge nurse Lisa notified about this. Right upper arm PICC line and 2 peripheral IVs on the right arm were all discontinued before patient left. Dr. Roger notified about patient went AMA. Patient stated that she will follow up with her primary care provider. Patient left with all her belongings with her. Addendum: 05/22/21 at 1552 by Jayce Gilliam RN Tips were all intact when PICC line catheter and 2 peripheral IVs were removed prior to discharge.
[2021-05-22] MEDS ORDERED: chromic chloride inj. 5 MCG, ZINC/COPPER/MANGANESE/SELENIUM 0.5 ML in AA 5%/CALCIUM/LYT... IV SCH (17:00)
[2021-05-22] MEDS ORDERED: K and/or MAG REPLACEMENT MC SCH (20:00)
[2021-05-25] MEDS ORDERED: MVI, adult No.4 with vit. K 10 ML in dextrose 5% water 500ml 500 ML IV SCH ×2 (08:00)
== END 2021-05-22 15:25 | disposition left against medical advice (07) | DRG 251 ==
LOC: ER 19:47 → ED HOLD 05-20 01:32 → SUR 3N 05-20 17:47
PROVIDERS: ADMIT Family Medicine; ATTEND Family Medicine
PROC: BW211ZZ Computerized Tomography (CT Scan) of Abdomen and Pelvis using Low Osmolar Contrast (ICD-10-PCS; principal; 2021-05-20)
PROC: 02HV33Z Insertion of Infusion Device into Superior Vena Cava, Percutaneous Approach (ICD-10-PCS; 2021-05-21)
PROC: B548ZZA Ultrasonography of Superior Vena Cava, Guidance (ICD-10-PCS; 2021-05-21)
DX: R10.84 Generalized abdominal pain (principal); E43 Unspecified severe protein-calorie malnutrition; G43.909 Migraine, unspecified, not intractable, without status migrainosus; G89.4 Chronic pain syndrome; Z20.822 Contact with and (suspected) exposure to COVID-19; J45.909 Unspecified asthma, uncomplicated; E86.1 Hypovolemia; E11.65 Type 2 diabetes mellitus with hyperglycemia; F17.210 Nicotine dependence, cigarettes, uncomplicated; R29.6 Repeated falls; Z90.411 Acquired partial absence of pancreas; Z90.710 Acquired absence of both cervix and uterus; Z90.81 Acquired absence of spleen; Z56.0 Unemployment, unspecified; Z68.1 Body mass index [BMI] 19.9 or less, adult; Z71.6 Tobacco abuse counseling; Z91.81 History of falling; Z88.1 Allergy status to other antibiotic agents; Z79.899 Other long term (current) drug therapy; Z79.4 Long term (current) use of insulin
CPT/HCPCS: 36415; 36573; 71045; 74177; 80053; 80061; 80156; 80305; 81001; 81025; 82550; 82948; 83036; 83690; 83735; 84100; 84134; 84443; 84478; 85025; 85610; 85730; 87081; 87635; 97116; 97161; 97530; 99285; C9113; G0378; J1170; J1644; J1815; J2270; J2405; J7030; J7120; J8597; Q9967

== ENCOUNTER 2021-08-05 12:13 | Emergency (ER) | payer MEDICAID ==
[~2021-08-05] VITALS: Ht 167.6 cm; Wt 45.5 kg
[~2021-08-05 12:13] MED LIST changes: -BACL10TA7 PO; +FLUO10CA28 PO; +IBUP-1986 PO; -OMEP-50 PO; +OMEP20CA16 PO
--- NOTE | 2021-08-05 12:30 | NUR ---
Found pt in wheelchair in room.
--- NOTE | 2021-08-05 12:30 | NUR ---
Brought in by her SO. He came home and found her on the ground. Pt is very weak and thin. She speeks slowly and softly. She stated that she does not have a spleen, gallbladder, or pancreas. Abd surgery was one year ago at [facility].
[2021-08-05] MEDS ORDERED: dextrose 50%-water 50ml dispensing syringe IV ONE ×2 (13:25→16:30)
[2021-08-05] MEDS ORDERED: ondansetron/PF 4mg/2ml inj IV ONE (13:50)
[2021-08-05] MEDS ORDERED: morphine 4 MG/ML inj SYRINge IV ONE (13:50)
[2021-08-05] MEDS ORDERED: normal saline 1000ML IV soln IVB ONE (13:50)
[2021-08-05] MEDS ORDERED: diphenhydrAMINE 50 mg/ml inj ONE (14:02)
[2021-08-05 15:10] LABS: ALANINE AMINOTRANSFERASE 38 U/L (12-78); ALBUMIN 3.5 G/DL (3.4-5.0); ALBUMIN/GLOBULIN RATIO 1.1 (1.1-1.5); ALKALINE PHOSPHATASE 85 IU/L (46-116); ANION GAP 13 (8-16); ASPARTATE AMINO TRANSFERASE 44 U/L (10-37); BILIRUBIN,TOTAL 0.3 MG/DL (0.1-1.0); BLOOD UREA NITROGEN 6 MG/DL (7-18); CALCIUM 8.6 MG/DL (8.5-10.1); CHLORIDE 101 MMOL/L (99-107); CREATININE 0.67 MG/DL (0.40-0.90); GLUCOSE 135 MG/DL (70-104); MAGNESIUM 1.8 MG/DL (1.5-2.4); POTASSIUM 3.3 MMOL/L (3.5-5.1); SODIUM 140 MMOL/L (135-145); TOTAL CARBON DIOXIDE 25.9 MMOL/L (24-32); TOTAL PROTEIN 6.8 G/DL (6.4-8.2); eGFR > 90 ML/MIN
[2021-08-05 15:37] LABS: CLARITY,URINE CLEAR (Clear); COLOR,URINE YELLOW (Yellow); GLUCOSE, URINE 250 mg/dl (Neg); KETONES,URINE NEGATIVE (Neg); LEUKOCYTE ESTERASE ,URINE NEGATIVE (Neg); NITRITES, URINE NEGATIVE (Neg); OCCULT BLOOD,URINE NEGATIVE (Neg); PH,URINE 6.5 (4.8-8.0); PROTEIN,URINE NEGATIVE (Neg); UA COLLECTION TYPE STRAIGHT CATH; UROBILINOGEN,URINE 0.2 E.U/dL (0.2-1.0)
[2021-08-05 15:39] LABS: URINE HCG NEGATIVE (NEG)
[2021-08-05] MEDS ORDERED: potassium CL 20mEq in D5-1/2NS 1,000 ML IV SCH (16:30)
[2021-08-05 16:40] LABS: BASOPHILS % (AUTO) 0.3 % (0-1); EOSINOPHILS % (AUTO) 0 % (0-6); HEMATOCRIT 39.5 % (35.0-45.0); HEMOGLOBIN 13.6 g/dl (12.0-16.0); LYMPHOCYTES # (AUTO) 1.6 X10'3 (1.1-4.8); LYMPHOCYTES % (AUTO) 12.3 % (21-51); MEAN CORPUSCULAR HEMOGLOBIN 34.5 PG (27.0-31.0); MEAN CORPUSCULAR HGB CONC 34.5 g/dL (33.0-36.5); MEAN CORPUSCULAR VOLUME 99.9 FL (78-98); MEAN PLATELET VOLUME 7.4 FL (7.4-10.4); MONOCYTES # (AUTO) 0.8 X10'3 (0-0.9); MONOCYTES % (AUTO) 5.8 % (2-12); NEUTROPHILS # (AUTO) 10.7 X10'3 (1.8-7.7); NEUTROPHILS % (AUTO) 81.6 % (42-75); PLATELET COUNT 303 X10'3 (140-440); RED BLOOD COUNT 3.95 X10'6 (4.20-5.60); RED CELL DISTRIBUTION WIDTH 15.4 % (11.5-14.5); WHITE BLOOD COUNT 13.1 X10'3 (4.5-11.0)
[2021-08-05] MEDS ORDERED: oxyCODONE/APAP 5-325mg tablet PO ONE (17:45)
[2021-08-05 18:23] VITALS: BP 107/56
== END 2021-08-05 18:25 | disposition home or self-care (01) ==
LOC: ER 12:15
DX: R41.82 Altered mental status, unspecified (principal); Z20.822 Contact with and (suspected) exposure to COVID-19; R53.1 Weakness; E11.649 Type 2 diabetes mellitus with hypoglycemia without coma; G43.909 Migraine, unspecified, not intractable, without status migrainosus; J45.909 Unspecified asthma, uncomplicated; G89.29 Other chronic pain; Z86.69 Personal history of other diseases of the nervous system and sense organs; Z90.710 Acquired absence of both cervix and uterus; Z98.890 Other specified postprocedural states; Z56.0 Unemployment, unspecified; Z88.1 Allergy status to other antibiotic agents; Z79.899 Other long term (current) drug therapy; Z79.4 Long term (current) use of insulin
CPT/HCPCS: 36415; 71045; 80053; 80156; 81003; 81025; 82948; 83605; 83735; 84145; 85025; 87040; 87635; 93005; 96361; 96374; 96375; 96376; 99285; C9803; J1200; J2270; J2405; J3480; J3490; J7030

== ENCOUNTER 2021-08-16 14:55 | Emergency (ER) | payer MEDICAID ==
[~2021-08-16] VITALS: Ht 167.6 cm; Wt 45.5 kg
[2021-08-16 15:55] LABS: BASOPHILS # (AUTO) 0.1 X10'3 (0-0.2); BASOPHILS % (AUTO) 0.8 % (0-1); EOSINOPHILS % (AUTO) 0.6 % (0-6); HEMOGLOBIN 13.1 g/dl (12.0-16.0); LYMPHOCYTES # (AUTO) 1.5 X10'3 (1.1-4.8); LYMPHOCYTES % (AUTO) 18.8 % (21-51); MEAN CORPUSCULAR HEMOGLOBIN 34.1 PG (27.0-31.0); MEAN CORPUSCULAR HGB CONC 33.6 g/dL (33.0-36.5); MEAN CORPUSCULAR VOLUME 101.4 FL (78-98); MEAN PLATELET VOLUME 7.9 FL (7.4-10.4); MONOCYTES # (AUTO) 0.4 X10'3 (0-0.9); MONOCYTES % (AUTO) 5.1 % (2-12); NEUTROPHILS # (AUTO) 5.9 X10'3 (1.8-7.7); NEUTROPHILS % (AUTO) 74.7 % (42-75); PLATELET COUNT 346 X10'3 (140-440); RED BLOOD COUNT 3.85 X10'6 (4.20-5.60); WHITE BLOOD COUNT 7.9 X10'3 (4.5-11.0)
[2021-08-16 16:27] LABS: ALANINE AMINOTRANSFERASE 59 U/L (12-78); ALBUMIN 3.2 G/DL (3.4-5.0); ANION GAP 11 (8-16); ASPARTATE AMINO TRANSFERASE 41 U/L (10-37); BILIRUBIN,TOTAL 0.2 MG/DL (0.1-1.0); BLOOD UREA NITROGEN 9 MG/DL (7-18); BUN/CREATININE RATIO 11.7 (6.6-38.0); CHLORIDE 98 MMOL/L (99-107); CREATININE 0.77 MG/DL (0.40-0.90); GLUCOSE 347 MG/DL (70-104); POTASSIUM 3.3 MMOL/L (3.5-5.1); SODIUM 134 MMOL/L (135-145); TOTAL CARBON DIOXIDE 25.2 MMOL/L (24-32); TOTAL PROTEIN 6.4 G/DL (6.4-8.2); eGFR 82 ML/MIN
[2021-08-16 16:38] LABS: ETHANOL < 0.010 GM/DL (0.0-0.010)
--- NOTE | 2021-08-16 16:40 | NUR ---
Received patient from main ED to bed #21. Pt ambulated independently, gait is slow and steady. Pt is cooperative with admit process.
[2021-08-16 16:57] LABS: CLARITY,URINE CLEAR (Clear); COLOR,URINE YELLOW (Yellow); GLUCOSE, URINE >=1000 mg/dl (Neg); KETONES,URINE NEGATIVE (Neg); LEUKOCYTE ESTERASE ,URINE NEGATIVE (Neg); NITRITES, URINE NEGATIVE (Neg); OCCULT BLOOD,URINE NEGATIVE (Neg); PH,URINE 6.5 (4.8-8.0); PROTEIN,URINE NEGATIVE (Neg); UROBILINOGEN,URINE 0.2 E.U/dL (0.2-1.0)
[2021-08-16 17:01] LABS: UA COLLECTION TYPE CLN CATCH MIDSTREAM
[2021-08-16 17:06] LABS: URINE AMPHETAMINE SCREEN NEGATIVE (Neg); URINE BARBITUATE SCREEN NEGATIVE (Neg); URINE BENZODIAZEPINES SCREEN NEGATIVE (Neg); URINE CANNABINOID SCREEN POSITIVE (Neg); URINE COCAINE SCREEN NEGATIVE (Neg); URINE METHADONE SCREEN NEGATIVE (Neg); URINE OPIATE SCREEN POSITIVE (Neg); URINE PHENCYCLIDINE SCREEN NEGATIVE (Neg)
[2021-08-16] MEDS ORDERED: OXYC-150 PO (17:12)
[2021-08-16] MEDS ORDERED: ONDA8TAB13 PO (17:12)
[2021-08-16 17:26] LABS: BACTERIA,URINE 2+ /HPF (Neg); RBC,URINE 0-2 /HPF (0-2); SQUAMOUS EPITHELIAL CELL,UR MANY /LPF (FEW); WBC,URINE 0-4 /HPF (0-4)
[2021-08-16 17:27] LABS: YEAST FEW /HPF (NEGATIVE)
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
--- NOTE | 2021-08-16 17:38 | NUR ---
Packet fexed to [facility].
--- NOTE | 2021-08-16 17:57 | NUR ---
[facility] at the bedside, folder left at the nurses station as well.
[2021-08-16] MEDS: oxyCODONE/APAP 10/325mg tablet PO PRN (18:49)
[2021-08-16] MEDS: clonazePAM 1mg tablet PO PRN (18:49)
[2021-08-16] MEDS: LIPASE/PROTEASE/AMYLASE 16,800 UNIT CAPSULE.DR PO SCH (18:58)
--- NOTE | 2021-08-16 19:00 | NUR ---
Pt lying in bed resting, stating that she is in pain 04/11 on her left abd area. Pt states she is very tired. Pt also complaining on anxiety 01/09. 2 tab of Percocet 10-325mg given, 1MG of Klonopin given with good effect. Pt is currently resting in bed with no needs at this time.
[2021-08-16] MEDS: carBAMazepine Ext. Release 200 MG TAB.ER.12H PO SCH (20:54)
[2021-08-16] MEDS: metoclopramide 10mg tablet PO SCH (20:54)
[2021-08-16] MEDS: FLUoxetine 10mg capsule PO SCH (20:55)
[2021-08-16] MEDS: ondansetron 4mg rapidly disintigrating tab PO SCH (20:55)
--- NOTE | 2021-08-16 22:29 | NUR ---
Pt appears to be sleeping.
[2021-08-17] MEDS: clonazePAM 1mg tablet PO PRN ×2 (00:40→08:45)
[2021-08-17] MEDS: oxyCODONE/APAP 10/325mg tablet PO PRN ×6 (00:41→23:08)
--- NOTE | 2021-08-17 01:14 | NUR ---
pt appears to be sleeping.
--- NOTE | 2021-08-17 04:02 | NUR ---
Pt appears to be sleeping.
--- NOTE | 2021-08-17 06:32 | NUR ---
Patient sleeping comfortably, no restless movements noted. Respirations even and unlabored.
[2021-08-17] MEDS ORDERED: MESSAGE TO PHARMACY PO ONE (07:15)
[2021-08-17] MEDS ORDERED: dextrose ORAL solution 15 GM/59 ML bottle PO PRN ×2 (07:15)
[2021-08-17] MEDS: FLUoxetine 10mg capsule PO SCH ×3 (08:24→21:33)
[2021-08-17] MEDS: pantoprazole 40mg Tablet.DR PO SCH (08:24)
[2021-08-17] MEDS: ondansetron 4mg rapidly disintigrating tab PO SCH ×3 (08:24→21:33)
[2021-08-17] MEDS: metoclopramide 10mg tablet PO SCH ×2 (08:24→21:32)
[2021-08-17] MEDS: LIPASE/PROTEASE/AMYLASE 16,800 UNIT CAPSULE.DR PO SCH ×3 (08:24→18:15)
[2021-08-17] MEDS: carBAMazepine Ext. Release 200 MG TAB.ER.12H PO SCH ×3 (08:25→21:33)
[2021-08-17 08:32] LABS: HEMOGLOBIN A1C 12.2 % (4.5-6.2)
[2021-08-17] MEDS: insulin Lispro (HumaLOG) vial - multi-dose SQ SCH ×3 (08:58→18:37)
--- NOTE | 2021-08-17 09:00 | NUR ---
One on one with patient completed at bedside. Pt presents depressed and guarded. Pt continues to endorse intermittent suicidal thoughts. Pt reports feeling anhedonia r/t to not having control of her life due to end stage pancreatitis. Pt states "I just keep dwindling away." Pt denies A/VH. Pt has intermittent suicidal thoughts "where there is a will there is a way." "Look at me." Pt was compliant with medication. Pt requested her PRN Percocet and Klonopin, reports pain 10/10 and anxiety 6/10. Pt's Klonopin is 1 mg BID.
--- NOTE | 2021-08-17 09:05 | NUR ---
BLOOD GLUCOSE 253 AT BREAKFAST. PT ON LEVEL 1 - RECEIVED 7 UNITS OF HUMALOG.
--- NOTE | 2021-08-17 11:04 | NUR ---
Pt continues to rest comfortably. Blood sugar was obtained was 199. Pt shows no distress.
--- NOTE | 2021-08-17 11:51 | NUR ---
Administered Clonazaepam 1mg and Oxycodone 10mg/325 x2 at 0845. [facility] did not register saved administration.
[2021-08-17] MEDS ORDERED: FLUoxetine 20mg capsule PO ONE (11:55)
--- NOTE | 2021-08-17 13:51 | NUR ---
Pt was sleeping, but easily aroused. Pt received 4 units of insulin. Pt also requested her PRN Percocet, reporting abdominal pain 8/10. Will continue to monitor.
--- NOTE | 2021-08-17 14:03 | NUR ---
HOSPITALIST VALERIE: Pt came unit on hospice care. Per hospice medical records: Pt has long standing pancreatits/duodenal ulcer (surgical removal of gallbladder, pancreas and spleen about 2 months ago.) Pt given poor prognosis. Due to pt's current surgery, board writer wants to review what's best for patient in how we administer her insulin. Pt being held on a 5150 for DTS. Addendum: 08/17/21 at 1422 by INGRID Spoke with KYLEE Gusman about paging hospitalist.
--- NOTE | 2021-08-17 14:11 | NUR ---
Patient up requesting hygiene basin to wash herself up and a toothbrush and toothpaste. Pt is bright and plesant. Pt reports she voided without issue.
--- NOTE | 2021-08-17 14:46 | NUR ---
Spoke with social services counselor Alondra regarding pt's status. She will review records and follow up with loan underwriter. Spoke with Get regarding pt's diet, he will add a smoothie cup to her diet. Pt does not like Ensure states "it tastes like chalk." Addendum: 08/17/21 at 1605 by INGRID Pt on 5150 as [facility] is currently unable to safety plan with patient.
--- NOTE | 2021-08-17 15:30 | NUR ---
Pt awake watching T.V, additional snacks were requested for patient as she ate very little lunch.
--- NOTE | 2021-08-17 16:05 | NUR ---
Pt appears to resting comfortably, no restless movements. Respirations even and unlabored.
--- NOTE | 2021-08-17 16:27 | NUR ---
GARRY FROM [employer]ER ATTENDANT CALLED, [facility] SAID HER SERVICES WERE NOT NEEDED AT THIS TIME. SHE DID CALL [facility] AND LET THEM KNOW THEY ARE WILLING TO HELP. SHE WILL FOLLOW UP LATER ON.
--- NOTE | 2021-08-17 19:22 | NUR ---
Spoke with patient before leaving shift. Pt opened up stating "I don't want to , but a person can only take so much." Pt states "I am in pain all the time and no one listens." Pt states she isn't on hospice care, while here at [facility]. Pt states [facility] couldn't take on the liability of her not being safe at home and wanting to harm herself. Pt states that she had received a phone call from [facility] stating there may be another surgery that may help. 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 Conference Organizer explained that if she was able to safety plan with [facility] the could reevaluate her discharge.
--- NOTE | 2021-08-17 19:30 | NUR ---
Patient received on the unit in no obvious distress. Patient voiced complaint of having pain, she rate pain 6/10. Patient states that she had a bowel movement late this evening.No abnormalities noted.Patient rates anxiety 6/10 and depression 5/10. She denies having any suicidal ideation at this time.
[2021-08-17] MEDS: insulin glargine (Lantus) pen - multi-dose SQ SCH (21:43)
--- NOTE | 2021-08-17 23:26 | NUR ---
Patient states that she is feeling cold and sweaty. Blood glucose done 90 mg/dl. Patient was given crackers just to maintain her through the night.
--- NOTE | 2021-08-18 01:07 | NUR ---
Patient asleep in no obvious distress. Observation ongoing.
[2021-08-18] MEDS: oxyCODONE/APAP 10/325mg tablet PO PRN ×5 (03:13→19:27)
--- NOTE | 2021-08-18 03:34 | NUR ---
Patient voice compliant of having pain 01/09. Percocet 650 mg given PO
--- NOTE | 2021-08-18 05:58 | NUR ---
Patient asleep but easily arouse. No obvious distress noted. Observation ongoing
--- NOTE | 2021-08-18 07:00 | NUR ---
PT. CARE ASSUMED FROM FRANKIE PEREZ. pT. LYING IN BED WITH EYES CLOSED RESTING QUIETLY.
--- NOTE | 2021-08-18 07:15 | NUR ---
PT. WITH C/O PAIN 7/10 ON PAIN SCALE. PT. MEDICATED WITH SCHEDULED MORNING MEDICATION AND PRN DOSE OF PERCOCET FOR PAIN. PT. PRESENT CALM/COOPERATIVE WITH A FLAT AFFECT AND DEPRESSED MOOD. PT. CURRENT STATES PASSIVE SI WITH OUT A ACTUAL PLAN, STATES WHERE THERE'S A WILL THERE'S AWAY TO DO IT". DENIES ANY OTHER COMPLAINTS AT THIS TIME. FSBS RESULT-252 WITH 5 UNIT PER SLIDING SCALE GIVEN. STAFF WILL CONTINUE TO MONITOR FOR SAFETY.
[2021-08-18] MEDS: ondansetron 4mg rapidly disintigrating tab PO SCH ×3 (07:17→21:31)
[2021-08-18] MEDS: pantoprazole 40mg Tablet.DR PO SCH (07:17)
[2021-08-18] MEDS: metoclopramide 10mg tablet PO SCH ×2 (07:17→21:31)
[2021-08-18] MEDS: LIPASE/PROTEASE/AMYLASE 16,800 UNIT CAPSULE.DR PO SCH ×3 (07:18→17:18)
[2021-08-18] MEDS: clonazePAM 1mg tablet PO PRN ×2 (07:24→19:27)
[2021-08-18] MEDS ORDERED: FLUoxetine 20mg capsule PO SCH (08:00)
[2021-08-18] MEDS: FLUoxetine 10mg capsule PO SCH ×3 (08:18→21:31)
[2021-08-18] MEDS: carBAMazepine Ext. Release 200 MG TAB.ER.12H PO SCH ×3 (08:18→21:31)
[2021-08-18] MEDS: insulin Lispro (HumaLOG) vial - multi-dose SQ SCH ×3 (09:11→20:25)
--- NOTE | 2021-08-18 10:00 | NUR ---
PT. PROVIDED WITH CHANGE OF SCRUBS AND GIVEN PERSONAL HYGIENE ITEMS. PT. PERFORMED ADL'S AT THIS TIME. PT. BACK IN BED VISIBLE ON THE UNIT RESTING QUIETLY IN BED.
--- NOTE | 2021-08-18 11:30 | NUR ---
FSBS RESULT-380. WILL MEDICATE ACCORDING TO S/S .
--- NOTE | 2021-08-18 12:46 | NUR ---
LUNCH TRAY PROVIDED
--- NOTE | 2021-08-18 13:50 | NUR ---
PT. COMPLIANT 1300 SCHEDULED MEDIICATIONS.
--- NOTE | 2021-08-18 15:10 | NUR ---
PT. C/O PAIN RATED 8/10 IN ABDOMINAL AREA. WILL CONTINUE TO MONITOR FOR SAFETY.
--- NOTE | 2021-08-18 16:18 | NUR ---
SIGNIFICANT OTHER AT BEDSIDE VISITING.
--- NOTE | 2021-08-18 17:04 | NUR ---
FSBS RESULT-102. NO INSULIN PER SLIDING SCALE
--- NOTE | 2021-08-18 19:38 | NUR ---
Received patient on the unit in no obvious distress. Patient voiced complaint of having pain , she rate the pain as 9/10. Patient rate her anxiety as 10/10 and depression as 8/10. Patient denies having any suicidal ideation at this time.
[2021-08-18] MEDS: insulin glargine (Lantus) pen - multi-dose SQ SCH (20:26)
[2021-08-19] MEDS: oxyCODONE/APAP 10/325mg tablet PO PRN ×6 (00:14→20:37)
--- NOTE | 2021-08-19 02:16 | NUR ---
Patient asleep but easily arouse. No obvious distress noted. Observation ongoing
--- NOTE | 2021-08-19 04:28 | NUR ---
Patient is feeling constant pain , she rate the pain 9/10. She was given Percocet 650 mg PO. Obsertvation ongoing.
--- NOTE | 2021-08-19 05:29 | NUR ---
Patient asleep but easily arouse . No obvious distress noted
--- NOTE | 2021-08-19 07:07 | NUR ---
PT. CARE ASSUMED FROM FRANKIE PEREZ. PT. VISIBLE ON THE UNIT LYING QUIETLY IN BED NO DISTRESS NOTED.
[2021-08-19] MEDS: metoclopramide 10mg tablet PO SCH ×2 (08:01→20:37)
[2021-08-19] MEDS: FLUoxetine 10mg capsule PO SCH ×3 (08:01→20:35)
[2021-08-19] MEDS: pantoprazole 40mg Tablet.DR PO SCH (08:03)
[2021-08-19] MEDS: clonazePAM 1mg tablet PO PRN ×2 (08:03→20:38)
[2021-08-19] MEDS: carBAMazepine Ext. Release 200 MG TAB.ER.12H PO SCH ×3 (08:04→20:35)
[2021-08-19] MEDS: LIPASE/PROTEASE/AMYLASE 16,800 UNIT CAPSULE.DR PO SCH ×3 (08:04→17:30)
[2021-08-19] MEDS: ondansetron 4mg rapidly disintigrating tab PO SCH ×3 (08:10→20:42)
--- NOTE | 2021-08-19 08:17 | NUR ---
PT. PRESENTS CALM AND COOPERATIVE WITH MORNING ASSESSMENT. PT. STATES PASSIVE THOUGHTS OF SI WITHOUT ACTUAL PLAN IN PLACE. DENIES ANY HI/AH OR VH AT THIS TIME. C/O PAIN RATED 8/10 IN ABD. AREA. COMPLIANT WITH SCHEDULED MEDICATION. PRN OF PERCOCET AND KLONOPIN GIVEN. STAFF WILL CONTINUE TO MONITOR FOR SAFETY.
--- NOTE | 2021-08-19 08:27 | NUR ---
BREAKFAST TRAY RECEIVED
--- NOTE | 2021-08-19 10:41 | NUR ---
VISIBLE ON THE UNIT RESTING IN BED WITH EYES CLOSED NO SIGNS OF DISTRESS NOTED.
--- NOTE | 2021-08-19 11:30 | NUR ---
PT. AT NURSE STATION FOCUSED ON PAIN MEDICATION. PT. ASKING WHEN NEXT DOSE IS DUE .
--- NOTE | 2021-08-19 12:15 | NUR ---
LUNCH TRAY RECEIVED
[2021-08-19] MEDS: insulin Lispro (HumaLOG) vial - multi-dose SQ SCH ×2 (13:49→21:26)
--- NOTE | 2021-08-19 14:20 | NUR ---
PT. RESTING QUIETLY WITH EYES CLOSED.
--- NOTE | 2021-08-19 15:25 | NUR ---
CLINICIAN AT BEDSIDE AT THIS TIME.
--- NOTE | 2021-08-19 17:53 | NUR ---
PT. LYING IN BED AWAKE NO DISTRESS NOTED. STAFF WILL CONTINUE TO MONITOR FOR SAFETY.
--- NOTE | 2021-08-19 19:07 | NUR ---
Patient received on the unit in no obvious distress. Patient voiced complaint of having pain as a 9/10 to her upper right quadrant. Patient breathing spontanously on room air. Patient rates her anxiety 10/10 and depression 9/10. Patient states that she is having intermittent suicidal ideation at this time.
--- NOTE | 2021-08-19 20:29 | NUR ---
Blood Glucose was 355 mg/dl, will retake patient had dinner 30 mins ago.
[2021-08-19] MEDS ORDERED: Melatonin 3mg tablet PO SCH (21:00)
[2021-08-19] MEDS: insulin glargine (Lantus) pen - multi-dose SQ SCH (21:27)
--- NOTE | 2021-08-19 21:56 | NUR ---
Rechecked blood glucose 375 mg/dl. Patient was given 10 unit of insulin
[2021-08-20] MEDS: oxyCODONE/APAP 10/325mg tablet PO PRN ×3 (00:28→08:39)
--- NOTE | 2021-08-20 02:51 | NUR ---
Patient asleep but easily arouse. No obvious distress noted.Observation ongoing
[2021-08-20 05:20] VITALS: BP 112/70
--- NOTE | 2021-08-20 05:28 | NUR ---
Patient awake and in no obvious distress. Blood glucose 65mg/dl, sandwich was given to maintain blood glucose level.
--- NOTE | 2021-08-20 06:46 | NUR ---
PT. CARE ASSUMED FROM FRANKIE PEREZ. PT. VISIBLE AT THIS TIME RESTING IN BED WITH EYES CLOSED NO DISTRESS NOTED.
--- NOTE | 2021-08-20 08:00 | NUR ---
PT. PRESENTS CALM AND COOPERATIVE WITH ASSESSMENT. STATES PASSIVE THOUGHTS OF SI WITHOUT A PLAN STATED. DENIES ANY CURRENT HI OR AH/VH THIS MORNING. PT. PRESENTS WITH FLAT AFFECT AND DEPRESSED MOOD. PT. C/O NOT SLEEPING LAST SHIFT DESPITE TAKING MELATONIN. PT. COMPLAINT WITH SCHEDULED MORNING MEDS, WITH A REQUEST FOR PRN OF KLONOPIN 1MG GIVEN FOR C/O ANXIETY. FSBS RESULT THIS AM 216, WILL GIVE COVERAGE ACCORDING TO SLIDING SCALE. PT. PROVIDED WITH BREAKFAST. STAFF WILL CONTINUE TO MONITOR FOR SAFETY.
[2021-08-20] MEDS: carBAMazepine Ext. Release 200 MG TAB.ER.12H PO SCH (08:05)
[2021-08-20] MEDS: LIPASE/PROTEASE/AMYLASE 16,800 UNIT CAPSULE.DR PO SCH (08:06)
[2021-08-20] MEDS: pantoprazole 40mg Tablet.DR PO SCH (08:06)
[2021-08-20] MEDS: ondansetron 4mg rapidly disintigrating tab PO SCH (08:06)
[2021-08-20] MEDS: FLUoxetine 10mg capsule PO SCH (08:06)
[2021-08-20] MEDS: clonazePAM 1mg tablet PO PRN (08:06)
[2021-08-20] MEDS: metoclopramide 10mg tablet PO SCH (08:06)
--- NOTE | 2021-08-20 08:30 | NUR ---
PT. C/O ABDOMINAL PAIN RATED 8/10. PT. MEDICATED WITH PERCOCET 5/325 X2 TABS FOR PAIN.
[2021-08-20] MEDS: insulin Lispro (HumaLOG) vial - multi-dose SQ SCH (08:53)
[2021-08-20] MEDS ORDERED: LORA-269 PO (09:20)
--- NOTE | 2021-08-20 09:33 | NUR ---
ORDER TO DISCHARGE PT. TO HOME RECEIVED. PT. PERSONAL BELONGING RETURNED AT THIS TIME. DISCHARGE INSTRUCTION REVIEWED. HOSPITAL TO PROVIDE [facility] FOR TRANSPORT HOME.
--- NOTE | 2021-08-20 09:45 | NUR ---
PT. DISCHARGED FROM UNIT
== END 2021-08-20 09:45 | disposition home or self-care (01) ==
LOC: ER 14:56
DX: R45.851 Suicidal ideations (principal); F32.9 Major depressive disorder, single episode, unspecified; G43.909 Migraine, unspecified, not intractable, without status migrainosus; J45.909 Unspecified asthma, uncomplicated; E11.9 Type 2 diabetes mellitus without complications; Z88.1 Allergy status to other antibiotic agents; Z20.822 Contact with and (suspected) exposure to COVID-19
CPT/HCPCS: 36415; 80053; 80305; 80320; 81001; 82948; 83036; 84443; 85025; 87635; 96372; 99285; C9803; J1815

== ENCOUNTER 2021-12-08 13:47 | Inpatient (IN) | payer MEDICAID ==
[~2021-12-08] VITALS: Ht 167.6 cm; Wt 51.0 kg
[~2021-12-08 13:47] MED LIST changes: -IBUP-1986 PO; -LIDO700A47 TOP; -ONDA4TAB12 PO; +ONDA8TAB13 PO; +OXYC-150 PO; -OXYC10TA47 PO
[2021-12-08 16:25] LABS: BASOPHILS # (AUTO) 0.1 X10'3 (0-0.2); EOSINOPHILS # (AUTO) 0.1 X10'3 (0-0.9); EOSINOPHILS % (AUTO) 0.8 % (0-6); HEMOGLOBIN 15.4 g/dl (12.0-16.0); LYMPHOCYTES # (AUTO) 1.9 X10'3 (1.1-4.8); LYMPHOCYTES % (AUTO) 16.2 % (21-51); MEAN CORPUSCULAR HEMOGLOBIN 33.7 PG (27.0-31.0); MEAN CORPUSCULAR HGB CONC 33.4 g/dL (33.0-36.5); MEAN CORPUSCULAR VOLUME 100.9 FL (78-98); MEAN PLATELET VOLUME 9.7 FL (7.4-10.4); MONOCYTES # (AUTO) 0.7 X10'3 (0-0.9); MONOCYTES % (AUTO) 5.6 % (2-12); NEUTROPHILS % (AUTO) 76.4 % (42-75); PLATELET COUNT 299 X10'3 (140-440); RED BLOOD COUNT 4.56 X10'6 (4.20-5.60); RED CELL DISTRIBUTION WIDTH 14.2 % (11.5-14.5); WHITE BLOOD COUNT 11.7 X10'3 (4.5-11.0)
[2021-12-08 16:43] LABS: ALANINE AMINOTRANSFERASE 49 U/L (12-78); ALBUMIN 4.2 G/DL (3.4-5.0); ALBUMIN/GLOBULIN RATIO 1.2 (1.1-1.5); ALKALINE PHOSPHATASE 179 IU/L (46-116); ANION GAP 15 (8-16); ASPARTATE AMINO TRANSFERASE 24 U/L (10-37); BILIRUBIN,TOTAL 0.3 MG/DL (0.1-1.0); BLOOD UREA NITROGEN 10 MG/DL (7-18); BUN/CREATININE RATIO 7.7 (6.6-38.0); CALCIUM 9.3 MG/DL (8.5-10.1); CHLORIDE 85 MMOL/L (99-107); POTASSIUM 5.4 MMOL/L (3.5-5.1); SODIUM 123 MMOL/L (135-145); TOTAL CARBON DIOXIDE 22.9 MMOL/L (24-32); TOTAL PROTEIN 7.7 G/DL (6.4-8.2); eGFR 44 ML/MIN
[2021-12-08] MEDS ORDERED: vancomycin/NS 1 GM ADD-VANTAGE 250 ML IV ONE (16:55)
[2021-12-08] MEDS ORDERED: piperacillin/tazo 3.375gm/50ml 50 ML IV ONE (16:55)
[2021-12-08 17:07] LABS: GLUCOSE 863 MG/DL (70-104)
[2021-12-08] MEDS ORDERED: insulin regular, human 10 units/0.1 ml syringe IV ONE (17:10)
[2021-12-08] MEDS ORDERED: normal saline 1000ML IV soln IV ONE (17:15)
[2021-12-08] MEDS ORDERED: ketorolac trometh. 30mg/ml inj. IV ONE (17:30)
[2021-12-08] MEDS ORDERED: HYDROmorphone inj. 0.5 MG/0.5 ML DISP.SYRIN IV PRN (18:35)
[2021-12-08] MEDS ORDERED: magnesium 2GM in 50ml NS 50 ML IV PRN (18:35)
[2021-12-08] MEDS ORDERED: acetaminophen 325mg tablet PO PRN (18:35)
[2021-12-08] MEDS ORDERED: POTASSIUM BICARB 20meq eff tab 20 MEQ TABLET.EFF PO PRN ×2 (18:35)
[2021-12-08] MEDS ORDERED: ondansetron/PF 4mg/2ml inj IV PRN (18:35)
[2021-12-08] MEDS ORDERED: magnesium 4gm in 100ml NS 100 ML IV PRN (18:35)
[2021-12-08] MEDS ORDERED: magnesium hydroxide 30ml (MOM) UD suspension PO PRN (18:35)
[2021-12-08] MEDS ORDERED: morphine 4 MG/ML inj SYRINge IV ONE (18:40)
[2021-12-08] MEDS ORDERED: clonazePAM 1mg tablet PO PRN (19:00)
[2021-12-08] MEDS ORDERED: oxyCODONE/APAP 10/325mg tablet PO PRN (19:00)
[2021-12-08] MEDS: insulin regular, human 10 units/0.1 ml syringe IV SCH ×2 (19:20→21:27)
[2021-12-08] MEDS ORDERED: docusate sod 100mg capsule PO SCH (20:00)
[2021-12-08] MEDS: K and/or MAG REPLACEMENT MC SCH (20:00)
[2021-12-08] MEDS ORDERED: metoclopramide 10mg tablet PO SCH (20:00)
[2021-12-08] MEDS ORDERED: FLUoxetine 10mg capsule PO SCH (21:00)
[2021-12-08] MEDS: enoxaparin 40mg/0.4ml syringe SQ SCH (22:15)
[2021-12-08] MEDS: metoclopramide 5 mg/ml inj IV SCH (22:16)
[2021-12-08] MEDS: piperacillin/tazo 4.5gm/100ml 100 ML IV SCH (22:39)
[2021-12-08] MEDS ORDERED: Insulin Reg/NS 100units/100mL 100 ML IV SCH (22:40)
[2021-12-08] MEDS: carBAMazepine 100mg chewable tablet PO SCH (22:41)
[2021-12-08 22:45] VITALS: BP 107/55
[2021-12-09] MEDS: HYDROmorphone inj. 0.5 MG/0.5 ML DISP.SYRIN IV PRN ×6 (00:48→23:26)
[2021-12-09 02:00] VITALS: BP 134/66
[2021-12-09 06:00] VITALS: BP 99/53
[2021-12-09 06:14] LABS: BASOPHILS # (AUTO) 0.1 X10'3 (0-0.2); BASOPHILS % (AUTO) 1.6 % (0-1); EOSINOPHILS # (AUTO) 0.6 X10'3 (0-0.9); EOSINOPHILS % (AUTO) 6.9 % (0-6); HEMATOCRIT 41.8 % (35.0-45.0); HEMOGLOBIN 14.2 g/dl (12.0-16.0); LYMPHOCYTES # (AUTO) 2.8 X10'3 (1.1-4.8); LYMPHOCYTES % (AUTO) 33.4 % (21-51); MEAN CORPUSCULAR HEMOGLOBIN 32.6 PG (27.0-31.0); MEAN CORPUSCULAR HGB CONC 33.9 g/dL (33.0-36.5); MEAN CORPUSCULAR VOLUME 96.3 FL (78-98); MONOCYTES # (AUTO) 0.8 X10'3 (0-0.9); MONOCYTES % (AUTO) 10.3 % (2-12); NEUTROPHILS # (AUTO) 3.9 X10'3 (1.8-7.7); NEUTROPHILS % (AUTO) 47.8 % (42-75); PLATELET COUNT 281 X10'3 (140-440); RED BLOOD COUNT 4.34 X10'6 (4.20-5.60); RED CELL DISTRIBUTION WIDTH 13.5 % (11.5-14.5); WHITE BLOOD COUNT 8.2 X10'3 (4.5-11.0)
[2021-12-09 06:24] LABS: ALANINE AMINOTRANSFERASE 37 U/L (12-78); ALBUMIN 3.3 G/DL (3.4-5.0); ALKALINE PHOSPHATASE 123 IU/L (46-116); ANION GAP 6 (8-16); ASPARTATE AMINO TRANSFERASE 24 U/L (10-37); BILIRUBIN,TOTAL 0.3 MG/DL (0.1-1.0); BLOOD UREA NITROGEN 6 MG/DL (7-18); BUN/CREATININE RATIO 7.1 (6.6-38.0); CALCIUM 8.7 MG/DL (8.5-10.1); CHLORIDE 103 MMOL/L (99-107); CREATININE 0.84 MG/DL (0.40-0.90); GLUCOSE 118 MG/DL (70-104); MAGNESIUM 1.7 MG/DL (1.5-2.4); POTASSIUM 3.4 MMOL/L (3.5-5.1); SODIUM 139 MMOL/L (135-145); TOTAL CARBON DIOXIDE 30.1 MMOL/L (24-32); TOTAL PROTEIN 6.5 G/DL (6.4-8.2); eGFR 74 ML/MIN
[2021-12-09] MEDS ORDERED: pantoprazole 40mg Tablet.DR PO SCH (07:30)
[2021-12-09] MEDS: K and/or MAG REPLACEMENT MC SCH ×2 (08:00→20:54)
[2021-12-09] MEDS: LIPASE PO SCH ×3 (08:00→18:00)
[2021-12-09] MEDS: AMYLASE PO SCH ×3 (08:00→18:00)
[2021-12-09] MEDS: PROTEASE PO SCH ×3 (08:00→18:00)
[2021-12-09] MEDS: HYDROmorphone/PF 0.2 MG/ML SYRINGE IV PRN ×4 (08:07→14:18)
[2021-12-09] MEDS: metoclopramide 5 mg/ml inj IV SCH ×2 (08:10→19:51)
[2021-12-09] MEDS: piperacillin/tazo 4.5gm/100ml 100 ML IV SCH ×2 (08:11→19:49)
[2021-12-09] MEDS: carBAMazepine 100mg chewable tablet PO SCH ×3 (08:12→20:58)
--- NOTE | 2021-12-09 08:25 | NUR ---
Pulled 1.0 mg dilaudid per order. Unable to waste in pyxis due to MD changing dose. Order was cancelled. Gave only .5 mg dilaudid. Wasted .5mg dilaudid with Selam Esquivel RN.
[2021-12-09] MEDS ORDERED: LIDOcaine 1%/PF 5ML 10 MG/ML VIAL ONE (08:56)
--- NOTE | 2021-12-09 10:32 | NUR ---
Diabetes consult: Noted pt w/ hx of DM A1c 12.2 in August of this year however pt is on chronic TPN per EMR so DM ed is not appropriate at this time. Pt admitted w/ infection of central catheter so currently no TPN access. Will place recs below for when pt to start TPN. Also noted that pt has Carb control and full liquid diet active, TC to RN to clarify if pt should be NPO given chronic TPN. Given current TPN formula availability, will have to utilize Non-e version and replace electrolytes separately. Recs 1. Once TPN, Continuous using 2:1 Clinimix Non-E 5/20 at 60ml/hr w/ additional 250ml 20% ILE to run at 20.8ml/hr for 12hr 2x/week. To provide 1440ml volume, avg 1410kcals, 288g Dex (3.89mg/kg/min GIR) and 72g protein Addendum: 12/09/21 at [address] Amended: Links added.
[2021-12-09 11:00] VITALS: BP 106/56
--- NOTE | 2021-12-09 11:12 | NUR ---
Sent to Dr. Alvarez: [id number]: blood glucose at 10 was 78, 11 was 80. d/c insulin gtt and start on ac/hs protocol? Also had venous cath removed. is there an order to put in new one? keep npo? thanks. Vivienne PEREZ [phone]
[2021-12-09] MEDS ORDERED: dextrose 50%-water 50ml dispensing syringe IV PRN ×2 (11:20)
[2021-12-09] MEDS ORDERED: insulin Lispro (HumaLOG) vial - multi-dose SQ SCH (11:20)
[2021-12-09] MEDS ORDERED: DEXTROSE 15 GM of carb/4 tabs (each vial/BOTTLE has 4 tablets) PO PRN ×2 (11:20)
[2021-12-09] MEDS ORDERED: MESSAGE TO PHARMACY PO ONE (11:20)
[2021-12-09] MEDS ORDERED: glucagon, human recombinant 1mg kit SUBCUT PRN (11:20)
--- NOTE | 2021-12-09 11:58 | NUR ---
sent to Dr. Alvarez: [id number]: Dr. Rivera does not want to put venous cath in due to infection. He is suggesting picc line. If that's ok, could you please put in order for picc line placemet? thank you. Vivienne PEREZ [phone]
[2021-12-09] MEDS: vancomycin/NS 1 GM ADD-VANTAGE 250 ML IV SCH ×2 (12:45→23:51)
--- NOTE | 2021-12-09 14:38 | NUR ---
Page sent to PICC RN for placement.
[2021-12-09] MEDS ORDERED: HYDROmorphone/PF 0.2 MG/ML SYRINGE IV PRN (16:40)
[2021-12-09] MEDS ORDERED: vancomycin/NS 1 GM ADD-VANTAGE 250 ML IV SCH (17:00)
[2021-12-09 18:00] VITALS: BP 138/82
[2021-12-09] MEDS: enoxaparin 40mg/0.4ml syringe SQ SCH (19:51)
[2021-12-09] MEDS: pantoprazole 40MG/NS 100ML BAG 100 ML IV SCH (20:52)
[2021-12-09] MEDS ORDERED: insulin glargine (Lantus) pen - multi-dose SQ SCH (21:00)
[2021-12-09] MEDS: potassium CL 10mEq/100ml bag 100 ML IV PRN ×3 (21:05→23:26)
[2021-12-09 22:00] VITALS: BP 119/72
[2021-12-10] MEDS: potassium CL 10mEq/100ml bag 100 ML IV PRN (00:56)
[2021-12-10] MEDS: HYDROmorphone inj. 0.5 MG/0.5 ML DISP.SYRIN IV PRN ×5 (01:45→11:17)
[2021-12-10 02:00] VITALS: BP 128/78
[2021-12-10 04:38] LABS: BASOPHILS # (AUTO) 0.1 X10'3 (0-0.2); EOSINOPHILS # (AUTO) 0.6 X10'3 (0-0.9); MEAN CORPUSCULAR HEMOGLOBIN 33.1 PG (27.0-31.0); MEAN CORPUSCULAR HGB CONC 33.9 g/dL (33.0-36.5)
[2021-12-10 04:39] LABS: HEMATOCRIT 39.9 % (35.0-45.0); HEMOGLOBIN 13.5 g/dl (12.0-16.0); LYMPHOCYTES # (AUTO) 2.7 X10'3 (1.1-4.8); MEAN CORPUSCULAR VOLUME 97.6 FL (78-98); MEAN PLATELET VOLUME 9.1 FL (7.4-10.4); MONOCYTES # (AUTO) 0.7 X10'3 (0-0.9); MONOCYTES % (AUTO) 8.3 % (2-12); NEUTROPHILS # (AUTO) 4.5 X10'3 (1.8-7.7); NEUTROPHILS % (AUTO) 52.7 % (42-75); PLATELET COUNT 276 X10'3 (140-440); RED BLOOD COUNT 4.09 X10'6 (4.20-5.60); RED CELL DISTRIBUTION WIDTH 13.6 % (11.5-14.5); WHITE BLOOD COUNT 8.6 X10'3 (4.5-11.0)
[2021-12-10 04:48] LABS: ALANINE AMINOTRANSFERASE 38 U/L (12-78); ALBUMIN 3.1 G/DL (3.4-5.0); ALBUMIN/GLOBULIN RATIO 1.1 (1.1-1.5); ALKALINE PHOSPHATASE 109 IU/L (46-116); ANION GAP 7 (8-16); ASPARTATE AMINO TRANSFERASE 46 U/L (10-37); BILIRUBIN,TOTAL 0.3 MG/DL (0.1-1.0); BLOOD UREA NITROGEN 4 MG/DL (7-18); BUN/CREATININE RATIO 6.6 (6.6-38.0); CALCIUM 8.6 MG/DL (8.5-10.1); CHLORIDE 105 MMOL/L (99-107); CREATININE 0.61 MG/DL (0.40-0.90); GLUCOSE 79 MG/DL (70-104); MAGNESIUM 1.7 MG/DL (1.5-2.4); POTASSIUM 3.9 MMOL/L (3.5-5.1); SODIUM 137 MMOL/L (135-145); TOTAL CARBON DIOXIDE 25.2 MMOL/L (24-32); eGFR > 90 ML/MIN
[2021-12-10 04:57] LABS: HEMOGLOBIN A1C 12.8 % (4.5-6.2)
--- NOTE | 2021-12-10 05:48 | NUR ---
Patient resting in bed, alert and oriented x4, pain controlled with PRN pain meds going from 7/10 down to 4/10. RN instructed patient on PO pain meds after she has some breakfast, may cause nausea on empty stomach and patient has issues with PO intake at baseline. Patient verbalizes understanding. Patient SB-SR on tele, tolerating room air, Morning labs obtained, patient had potassium replaced per protocol. No other issues, patient verbalizes readiness to DC home today.
[2021-12-10 07:00] VITALS: BP 123/72
[2021-12-10] MEDS: vancomycin/NS 1 GM ADD-VANTAGE 250 ML IV SCH (07:37)
[2021-12-10] MEDS: metoclopramide 5 mg/ml inj IV SCH (07:37)
[2021-12-10] MEDS: PROTEASE PO SCH (08:00)
[2021-12-10] MEDS: LIPASE PO SCH (08:00)
[2021-12-10] MEDS: K and/or MAG REPLACEMENT MC SCH (08:00)
[2021-12-10] MEDS: AMYLASE PO SCH (08:00)
[2021-12-10] MEDS: pantoprazole 40MG/NS 100ML BAG 100 ML IV SCH (09:08)
[2021-12-10] MEDS: carBAMazepine 100mg chewable tablet PO SCH (09:15)
[2021-12-10] MEDS: piperacillin/tazo 4.5gm/100ml 100 ML IV SCH (09:16)
--- NOTE | 2021-12-10 09:45 | NUR ---
Problems reprioritized. Patient report given, questions answered & plan of care reviewed with CHRIS Andrade.
[2021-12-10 11:30] VITALS: BP 146/73
[2021-12-10] MEDS ORDERED: SULF1TAB49 PO ×2 (11:32)
[2021-12-10] MEDS ORDERED: CEPH250T PO ×2 (11:32)
--- NOTE | 2021-12-10 12:37 | NUR ---
Patient discharged home with new medications patient expressed verbal understanding of discharge teaching. Patient tunneled cath taken out due to infections and patient left with new PICC to the left upper arm. Patient left with all of belongings at discharge.
[2021-12-10] MEDS ORDERED: VANCOMYCIN LEVEL IV ONE (18:30)
[2021-12-12] MEDS ORDERED: CIPR-202 PO (09:34)
== END 2021-12-10 12:20 | disposition home or self-care (01) | DRG 721 ==
LOC: ER 13:48 → ED HOLD 18:40 → PCU 3S 21:30
PROVIDERS: ADMIT Family Medicine; ATTEND Family Medicine
PROC: 0JPTXXZ Removal of Tunneled Vascular Access Device from Trunk Subcutaneous Tissue and Fascia, External Approach (ICD-10-PCS; principal; 2021-12-09)
DX: T80.212A Local infection due to central venous catheter, initial encounter (principal); N17.9 Acute kidney failure, unspecified; E87.1 Hypo-osmolality and hyponatremia; E11.65 Type 2 diabetes mellitus with hyperglycemia; E87.5 Hyperkalemia; B96.5 Pseudomonas (aeruginosa) (mallei) (pseudomallei) as the cause of diseases classified elsewhere; E87.6 Hypokalemia; F17.210 Nicotine dependence, cigarettes, uncomplicated; F32.A Depression, unspecified; F41.9 Anxiety disorder, unspecified; G43.909 Migraine, unspecified, not intractable, without status migrainosus; Y83.8 Other surgical procedures as the cause of abnormal reaction of the patient, or of later complication, without mention of misadventure at the time of the procedure; F12.90 Cannabis use, unspecified, uncomplicated; G89.29 Other chronic pain; G40.909 Epilepsy, unspecified, not intractable, without status epilepticus; J45.909 Unspecified asthma, uncomplicated; Z79.4 Long term (current) use of insulin; Z90.410 Acquired total absence of pancreas; Z90.710 Acquired absence of both cervix and uterus; Z90.81 Acquired absence of spleen; Z56.0 Unemployment, unspecified; Z79.899 Other long term (current) drug therapy; Z88.1 Allergy status to other antibiotic agents; Y92.89 Other specified places as the place of occurrence of the external cause; Z90.49 Acquired absence of other specified parts of digestive tract; Z71.6 Tobacco abuse counseling
CPT/HCPCS: 36415; 36573; 36589; 71045; 80053; 82948; 83036; 83605; 83735; 84145; 85025; 87040; 87070; 87077; 87081; 87186; 99285; A4615; A6258; A6449; C1751; C9113; G0378; J1170; J1650; J1815; J2270; J2543; J2765; J3370; J3480; J3490; J7030; J7040

== ENCOUNTER 2021-12-18 10:23 | Inpatient (IN) | payer MEDICAID ==
[~2021-12-18] VITALS: Ht 167.6 cm; Wt 58.6 kg
[~2021-12-18 10:23] MED LIST changes: +CIPR-202 PO
[2021-12-18] MEDS ORDERED: Insulin Reg/NS 100units/100mL 100 ML IV SCH (10:55)
[2021-12-18] MEDS: normal saline 1000ml 1,000 ML IV SCH ×5 (10:55→21:42)
[2021-12-18] MEDS ORDERED: normal saline 1000ML IV soln IV ONE (10:55)
[2021-12-18] MEDS ORDERED: potassium CL 20mEq in D5-1/2NS 1,000 ML IV PRN (10:55)
[2021-12-18] MEDS ORDERED: insulin regular, human U-100 3ml vial - multi-dose IV PRN ×2 (10:55→16:15)
[2021-12-18] MEDS: Neutra Phos packet PO SCH ×2 (11:15→22:00)
[2021-12-18 11:27] LABS: BASOPHILS # (AUTO) 0.1 X10'3 (0-0.2); BASOPHILS % (AUTO) 0.3 % (0-1); EOSINOPHILS % (AUTO) 0 % (0-6); HEMATOCRIT 51.5 % (35.0-45.0); HEMOGLOBIN 16.9 g/dl (12.0-16.0); LYMPHOCYTES # (AUTO) 1.2 X10'3 (1.1-4.8); LYMPHOCYTES % (AUTO) 4.1 % (21-51); MEAN CORPUSCULAR HEMOGLOBIN 32.5 PG (27.0-31.0); MEAN CORPUSCULAR HGB CONC 32.8 g/dL (33.0-36.5); MEAN PLATELET VOLUME 8.2 FL (7.4-10.4); MONOCYTES # (AUTO) 1.2 X10'3 (0-0.9); MONOCYTES % (AUTO) 4.1 % (2-12); NEUTROPHILS # (AUTO) 26.3 X10'3 (1.8-7.7); NEUTROPHILS % (AUTO) 91.5 % (42-75); PLATELET COUNT 275 X10'3 (140-440); RED CELL DISTRIBUTION WIDTH 13.9 % (11.5-14.5)
[2021-12-18 11:41] LABS: ABG BASE EXCESS -21.7 mmol/L (-2.0-2.0); ABG HCO3 5.2 mmol/L (22.0-26.0); ABG OXYGEN SATURATION 97.5 % (94-97); ABG PO2 (T) 121.7 mmHg (75.0-100.0); ALLEN'S TEST POSITIVE; FCOHb 0.6 % (0.0-3.9); FMetHb 0.2 % (0.0-1.5); FO2Hb 96.7 % (94-97); TOTAL HEMOGLOBIN 16.4 G/dl (12.0-16.0)
[2021-12-18 11:44] LABS: WHITE BLOOD COUNT 28.8 X10'3 (4.5-11.0)
[2021-12-18] MEDS ORDERED: metoclopramide 5 mg/ml inj IV ONE (11:50)
[2021-12-18] MEDS ORDERED: morphine 4 MG/ML inj SYRINge IV ONE (11:50)
[2021-12-18] MEDS ORDERED: insulin regular, human 10 units/0.1 ml syringe IV PRN (11:53)
[2021-12-18 11:56] LABS: PLATELET ESTIMATE NORMAL; TOTAL CELLS COUNTED 100
[2021-12-18 11:57] LABS: BURR CELLS 1+; TARGET CELLS FEW
[2021-12-18 12:52] LABS: ALANINE AMINOTRANSFERASE 54 U/L (12-78); ALBUMIN 4.3 G/DL (3.4-5.0); ALBUMIN/GLOBULIN RATIO 1.1 (1.1-1.5); ALKALINE PHOSPHATASE 173 IU/L (46-116); ASPARTATE AMINO TRANSFERASE 38 U/L (10-37); BILIRUBIN,TOTAL 0.4 MG/DL (0.1-1.0); BLOOD UREA NITROGEN 9 MG/DL (7-18); BUN/CREATININE RATIO 6.2 (6.6-38.0); CALCIUM 9.4 MG/DL (8.5-10.1); CARBAMAZEPINE (TEGRETOL) 1.3 UG/ML (4.0-12.0); CHLORIDE 93 MMOL/L (99-107); CREATINE KINASE 125 U/L (26-192); CREATININE 1.45 MG/DL (0.40-0.90); ETHANOL < 0.010 GM/DL (0.0-0.010); MAGNESIUM 1.8 MG/DL (1.5-2.4); PHOSPHORUS 4.2 MG/DL (2.3-4.5); SODIUM 133 MMOL/L (135-145); TOTAL PROTEIN 8.3 G/DL (6.4-8.2); eGFR 39 ML/MIN
[2021-12-18 12:54] LABS: POTASSIUM 4.8 MMOL/L (3.5-5.1)
[2021-12-18 13:06] LABS: ANION GAP 33 (8-16)
[2021-12-18 13:07] LABS: GLUCOSE 491 MG/DL (70-104); TOTAL CARBON DIOXIDE 6.8 MMOL/L (24-32)
[2021-12-18] MEDS ORDERED: sodium bicarbonate (8.4%) inj. 50 MEQ in dextrose 5% water 500ml 250 ML IV PRN ×2 (13:15→16:15)
[2021-12-18] MEDS ORDERED: sodium bicarbonate (8.4%) inj. 50 MEQ in dextrose 5% water 500ml 1,000 ML IV PRN (13:57)
[2021-12-18] MEDS ORDERED: CefTRIAXone 2gm/NS 100ml IVPB 100 ML IV ONE (15:15)
[2021-12-18] MEDS ORDERED: magnesium Cl slow-release 64mg tablet PO PRN (16:10)
[2021-12-18] MEDS ORDERED: magnesium 2GM in 50ml NS 50 ML IV PRN (16:10)
[2021-12-18] MEDS ORDERED: POTASSIUM BICARB 20meq eff tab 20 MEQ TABLET.EFF PO PRN ×2 (16:10)
[2021-12-18] MEDS ORDERED: potassium CL 10mEq/100ml bag 100 ML IV PRN (16:10)
[2021-12-18] MEDS ORDERED: acetaminophen 325mg tablet PO PRN (16:10)
[2021-12-18] MEDS ORDERED: magnesium 4gm in 100ml NS 100 ML IV PRN (16:10)
[2021-12-18] MEDS ORDERED: sodium phosphate inj. 15 MMOL in dextrose 5%-water 250 ML IV PRN (16:15)
[2021-12-18] MEDS ORDERED: sodium bicarbonate (8.4%) inj. 100 MEQ in dextrose 5% water 500ml 500 ML IV PRN (16:15)
[2021-12-18] MEDS ORDERED: potassium Cl 20 mEq SR tablet PO PRN ×2 (16:15)
[2021-12-18] MEDS ORDERED: Neutra Phos packet PO PRN (16:15)
[2021-12-18] MEDS ORDERED: potassium Cl 40MEQ/1/2NS 520ml 520 ML IV PRN (16:15)
--- NOTE | 2021-12-18 18:00 | NUR ---
Patient in room PCU 3013. I have received report from Neena RN and had the opportunity to ask questions and assume patient care.
[2021-12-18 18:11] LABS: ALBUMIN 3.5 G/DL (3.4-5.0); ANION GAP 17 (8-16); BLOOD UREA NITROGEN 6 MG/DL (7-18); BUN/CREATININE RATIO 4.6 (6.6-38.0); CALCIUM 8.5 MG/DL (8.5-10.1); CHLORIDE 106 MMOL/L (99-107); CREATININE 1.31 MG/DL (0.40-0.90); GLUCOSE 216 MG/DL (70-104); MAGNESIUM 1.6 MG/DL (1.5-2.4); POTASSIUM 3.5 MMOL/L (3.5-5.1); SODIUM 138 MMOL/L (135-145); TOTAL CARBON DIOXIDE 15.4 MMOL/L (24-32); eGFR 44 ML/MIN
[2021-12-18 18:44] LABS: PHOSPHORUS 1.3 MG/DL (2.3-4.5)
[2021-12-18] MEDS: Insulin Reg/NS 100units/100mL 100 ML IV SCH (19:12)
--- NOTE | 2021-12-18 19:30 | NUR ---
Patient in room PCU 3013. I have received report from Pham and had the opportunity to ask questions and assume patient care. Got patientbadmitted, called Herminio AGUAYO shortly thereafter to get pain meds and replacement directives based on blood glucose/iv med and labs. Turned off bicarb, decreased rate of D%W 1/2 NS to 100 per verbal orders. Addendum: 12/18/21 at 2316 by Chantal Tellez RN Replacingn critical phos of 1.0, changing fluids to d51/2 NS with 20 of kmeq
[2021-12-18 20:00] VITALS: BP 133/77
[2021-12-18] MEDS: K and/or MAG REPLACEMENT MC SCH ×2 (20:00→21:30)
[2021-12-18] MEDS: ondansetron/PF 4mg/2ml inj IV PRN (20:43)
[2021-12-18 21:02] LABS: ALBUMIN 3.5 G/DL (3.4-5.0); ANION GAP 14 (8-16); BLOOD UREA NITROGEN 5 MG/DL (7-18); BUN/CREATININE RATIO 4.2 (6.6-38.0); CALCIUM 8.8 MG/DL (8.5-10.1); CHLORIDE 106 MMOL/L (99-107); CREATININE 1.18 MG/DL (0.40-0.90); GLUCOSE 221 MG/DL (70-104); POTASSIUM 3.6 MMOL/L (3.5-5.1); SODIUM 138 MMOL/L (135-145); eGFR 50 ML/MIN
[2021-12-18] MEDS ORDERED: morphine 2 MG/ML inj. syringe IV PRN (21:25)
[2021-12-18 22:00] VITALS: BP 142/84
[2021-12-18] MEDS: potassium CL 20mEq in D5-1/2NS 1,000 ML IV PRN (23:58)
[2021-12-19] MEDS: normal saline 1000ml 1,000 ML IV SCH ×9 (00:15→22:10)
--- NOTE | 2021-12-19 00:15 | NUR ---
stopped omsu;in gtt for bg of 89. had followed Increase/Decrease orders prior to that based on protocol for DKA/Insulin gtt. Addendum: 12/19/21 at 0125 by Barbara Spann RN Stopped insulin gtt per protocol.
[2021-12-19] MEDS: morphine 2 MG/ML inj. syringe IV PRN ×10 (00:42→23:38)
[2021-12-19 01:42] LABS: BASOPHILS # (AUTO) 0.1 X10'3 (0-0.2); BASOPHILS % (AUTO) 0.7 % (0-1); EOSINOPHILS % (AUTO) 0 % (0-6); HEMOGLOBIN 13.3 g/dl (12.0-16.0); LYMPHOCYTES # (AUTO) 1.5 X10'3 (1.1-4.8); LYMPHOCYTES % (AUTO) 7.7 % (21-51); MEAN CORPUSCULAR HEMOGLOBIN 32.5 PG (27.0-31.0); MEAN CORPUSCULAR HGB CONC 34.2 g/dL (33.0-36.5); MEAN PLATELET VOLUME 8.3 FL (7.4-10.4); MONOCYTES # (AUTO) 1.5 X10'3 (0-0.9); MONOCYTES % (AUTO) 7.3 % (2-12); NEUTROPHILS # (AUTO) 16.7 X10'3 (1.8-7.7); NEUTROPHILS % (AUTO) 84.3 % (42-75); PLATELET COUNT 237 X10'3 (140-440); RED CELL DISTRIBUTION WIDTH 13.4 % (11.5-14.5); WHITE BLOOD COUNT 19.9 X10'3 (4.5-11.0)
[2021-12-19 01:49] LABS: ALBUMIN 3.4 G/DL (3.4-5.0); ANION GAP 13 (8-16); BLOOD UREA NITROGEN 5 MG/DL (7-18); BUN/CREATININE RATIO 4.8 (6.6-38.0); CALCIUM 8.6 MG/DL (8.5-10.1); CHLORIDE 107 MMOL/L (99-107); CREATININE 1.04 MG/DL (0.40-0.90); GLUCOSE 95 MG/DL (70-104); MAGNESIUM 1.7 MG/DL (1.5-2.4); SODIUM 141 MMOL/L (135-145); eGFR 58 ML/MIN
[2021-12-19 02:00] VITALS: BP 133/76
[2021-12-19] MEDS: ondansetron/PF 4mg/2ml inj IV PRN ×2 (02:22→20:27)
[2021-12-19 02:26] LABS: PHOSPHORUS 1.2 MG/DL (2.3-4.5); POTASSIUM 2.7 MMOL/L (3.5-5.1)
[2021-12-19] MEDS: sodium phosphate inj. 30 MMOL in dextrose 5%-water 250 ML IV PRN ×2 (02:51→03:48)
--- NOTE | 2021-12-19 03:27 | NUR ---
PER MD ISBELL, STOP INSULIN GTT, START REGULAR HYPER/HYPOGLYCEMIC PROTOCOL. CONTINUE TO REPLACE ELECTROLYTES PER PROTOCOL. SUJEY PEREZ Addendum: 12/19/21 at 0440 by Chantal Tellez RN RESTARTED INSULIN GTT-PATIENT ON TPN, NOT EATING, RECHECKING LABS. CO2 STILL NOT WITHIN PARAMETERS.
[2021-12-19 06:00] VITALS: BP 162/92
[2021-12-19] MEDS: potassium CL 20mEq in D5-1/2NS 1,000 ML IV PRN ×3 (06:11→22:53)
[2021-12-19 06:26] LABS: BASOPHILS % (AUTO) 0.3 % (0-1); EOSINOPHILS % (AUTO) 0 % (0-6); HEMATOCRIT 39.4 % (35.0-45.0); HEMOGLOBIN 13.2 g/dl (12.0-16.0); LYMPHOCYTES # (AUTO) 0.6 X10'3 (1.1-4.8); LYMPHOCYTES % (AUTO) 4.1 % (21-51); MEAN CORPUSCULAR HGB CONC 33.5 g/dL (33.0-36.5); MEAN CORPUSCULAR VOLUME 95.5 FL (78-98); MONOCYTES # (AUTO) 0.6 X10'3 (0-0.9); MONOCYTES % (AUTO) 3.7 % (2-12); NEUTROPHILS % (AUTO) 91.9 % (42-75); PLATELET COUNT 216 X10'3 (140-440); RED BLOOD COUNT 4.12 X10'6 (4.20-5.60); RED CELL DISTRIBUTION WIDTH 13.7 % (11.5-14.5); WHITE BLOOD COUNT 15.3 X10'3 (4.5-11.0)
[2021-12-19 06:39] LABS: ALBUMIN 3.3 G/DL (3.4-5.0); ANION GAP 16 (8-16); BLOOD UREA NITROGEN 5 MG/DL (7-18); BUN/CREATININE RATIO 4.9 (6.6-38.0); CALCIUM 8.4 MG/DL (8.5-10.1); CHLORIDE 103 MMOL/L (99-107); CREATININE 1.02 MG/DL (0.40-0.90); GLUCOSE 299 MG/DL (70-104); PHOSPHORUS 2.3 MG/DL (2.3-4.5); POTASSIUM 3.5 MMOL/L (3.5-5.1); SODIUM 136 MMOL/L (135-145); TOTAL CARBON DIOXIDE 17.1 MMOL/L (24-32); eGFR 59 ML/MIN
--- NOTE | 2021-12-19 06:46 | NUR ---
Problems reprioritized. Patient report given, questions answered & plan of care reviewed with Selam PEREZ.
[2021-12-19] MEDS: K and/or MAG REPLACEMENT MC SCH ×4 (08:00→20:00)
[2021-12-19] MEDS: Neutra Phos packet PO SCH ×3 (08:16→21:00)
[2021-12-19] MEDS: Insulin Reg/NS 100units/100mL 100 ML IV SCH (08:29)
--- NOTE | 2021-12-19 08:43 | NUR ---
Nutrition consult: Noted pt admitted w/ DKA w/ hx of DM A1c 12.2 in August of this year however pt is on chronic TPN per EMR so DM ed is not appropriate at this time. Pt had reportedly not been receiving TPN for the last 2 days. Per RN, pt w/ PICC line though will wait until DKA is resolved to consider TPN initiation, recs below for when TPN is started. Noted yariel score 12 though no skin issues documented Will continue to monitor. Recs: 1. Once TPN, Continuous using 2:1 Clinimix E 5/20 at 60ml/hr w/ additional 250ml 20% ILE to run at 20.8ml/hr for 12hr 2x/week. To provide 1440ml volume, avg 1410kcals, 288g Dex (3.89mg/kg/min GIR) and 72g protein 2. Bowel care per MD 3. Scaled wts this admit 4. DM ed not appropriate given pt on chronic TPN Addendum: 12/19/21 at [address] Amended: Links added.
[2021-12-19 11:00] VITALS: BP 137/88
[2021-12-19 18:00] VITALS: BP 133/82
--- NOTE | 2021-12-19 18:17 | NUR ---
Patient in room PCU 3010. I have received report from Selam PEREZ and had the opportunity to ask questions and assume patient care.
[2021-12-19 22:00] VITALS: BP 154/83
[2021-12-20] MEDS: normal saline 1000ml 1,000 ML IV SCH ×6 (00:15→20:00)
[2021-12-20] MEDS: morphine 2 MG/ML inj. syringe IV PRN ×9 (01:49→20:17)
[2021-12-20] MEDS: Insulin Reg/NS 100units/100mL 100 ML IV SCH (02:11)
[2021-12-20] MEDS: ondansetron/PF 4mg/2ml inj IV PRN ×2 (02:32→20:52)
[2021-12-20 02:53] LABS: BASOPHILS # (AUTO) 0.1 X10'3 (0-0.2); BASOPHILS % (AUTO) 1.1 % (0-1); EOSINOPHILS % (AUTO) 0.3 % (0-6); HEMATOCRIT 39.7 % (35.0-45.0); HEMOGLOBIN 13.6 g/dl (12.0-16.0); LYMPHOCYTES # (AUTO) 1.6 X10'3 (1.1-4.8); LYMPHOCYTES % (AUTO) 14.2 % (21-51); MEAN CORPUSCULAR HEMOGLOBIN 32.1 PG (27.0-31.0); MEAN CORPUSCULAR HGB CONC 34.2 g/dL (33.0-36.5); MEAN PLATELET VOLUME 9.2 FL (7.4-10.4); MONOCYTES # (AUTO) 0.9 X10'3 (0-0.9); MONOCYTES % (AUTO) 7.8 % (2-12); NEUTROPHILS # (AUTO) 8.9 X10'3 (1.8-7.7); NEUTROPHILS % (AUTO) 76.6 % (42-75); PLATELET COUNT 230 X10'3 (140-440); RED BLOOD COUNT 4.22 X10'6 (4.20-5.60); RED CELL DISTRIBUTION WIDTH 13.6 % (11.5-14.5); WHITE BLOOD COUNT 11.6 X10'3 (4.5-11.0)
[2021-12-20 03:27] LABS: ALBUMIN 3.4 G/DL (3.4-5.0); ANION GAP 13 (8-16); BLOOD UREA NITROGEN 2 MG/DL (7-18); BUN/CREATININE RATIO 2.8 (6.6-38.0); CALCIUM 8.9 MG/DL (8.5-10.1); CHLORIDE 103 MMOL/L (99-107); CREATININE 0.72 MG/DL (0.40-0.90); GLUCOSE 120 MG/DL (70-104); MAGNESIUM 1.7 MG/DL (1.5-2.4); SODIUM 140 MMOL/L (135-145); TOTAL CARBON DIOXIDE 23.9 MMOL/L (24-32); eGFR 88 ML/MIN
[2021-12-20 03:31] LABS: POTASSIUM 2.6 MMOL/L (3.5-5.1)
--- NOTE | 2021-12-20 04:05 | NUR ---
called [facility] regarding critical potassium of 2.6. replacement orders per protocol.
[2021-12-20] MEDS: potassium Cl 40MEQ/1/2NS 520ml 520 ML IV PRN ×2 (04:25→11:15)
--- NOTE | 2021-12-20 06:51 | NUR ---
Patient in room PCU 3010. I have received report from Chantal PEREZ and had the opportunity to ask questions and assume patient care. Patient resting in bed in no acute distress.
[2021-12-20 07:00] VITALS: BP 144/90
[2021-12-20] MEDS: potassium CL 20mEq in D5-1/2NS 1,000 ML IV PRN ×2 (07:09→07:28)
[2021-12-20] MEDS: K and/or MAG REPLACEMENT MC SCH ×4 (08:00→20:00)
[2021-12-20] MEDS: Neutra Phos packet PO SCH ×4 (08:00→21:00)
--- NOTE | 2021-12-20 08:29 | NUR ---
Problems reprioritized. Patient report given, questions answered & plan of care reviewed with Roseline PEREZ.
[2021-12-20 08:37] LABS: ALBUMIN 3.2 G/DL (3.4-5.0); ANION GAP 12 (8-16); BLOOD UREA NITROGEN 2 MG/DL (7-18); BUN/CREATININE RATIO 3.3 (6.6-38.0); CALCIUM 8.6 MG/DL (8.5-10.1); CHLORIDE 101 MMOL/L (99-107); GLUCOSE 204 MG/DL (70-104); PHOSPHORUS 1.6 MG/DL (2.3-4.5); POTASSIUM 3.1 MMOL/L (3.5-5.1); SODIUM 138 MMOL/L (135-145); TOTAL CARBON DIOXIDE 24.7 MMOL/L (24-32); eGFR > 90 ML/MIN
[2021-12-20 11:00] VITALS: BP 129/81
[2021-12-20] MEDS ORDERED: clonazePAM 1mg tablet PO PRN (11:15)
--- NOTE | 2021-12-20 11:27 | NUR ---
Page Sent promotional table spacer PAGER ID: [phone] MESSAGE: [phone]. Pt labs look good can we start TPN and DC insulin gtt? Do you want her on fluids still? Phos and K being replaced per protocol. Roseline @[phone]
--- NOTE | 2021-12-20 11:38 | NUR ---
TPN consult: Pt to start on TPN per MD, see recs below, have been discussed w/ clinical pharmacist and RN. Recs: 1. Continuous TPN using 2:1 Clinimix E 5/20 at 60ml/hr w/ additional 250ml 20% ILE to run at 20.8ml/hr for 12hr 2x/week. To provide 1440ml volume, avg 1410kcals, 288g Dex (3.89mg/kg/min GIR) and 72g protein 2. Check TG and PALB 2. Bowel care per MD 3. Scaled wts this admit 4. DM ed not appropriate given pt on chronic TPN Addendum: 12/20/21 at [address] Amended: Links added.
[2021-12-20] MEDS ORDERED: AMYL1CAP56 PO (12:00)
[2021-12-20] MEDS ORDERED: magnesium 2GM in 50ml NS 50 ML IV PRN (12:45)
[2021-12-20] MEDS ORDERED: magnesium Cl slow-release 64mg tablet PO PRN (12:45)
[2021-12-20] MEDS ORDERED: Dextrose 10%-water IV solution 1,000 ML IV PRN (12:45)
[2021-12-20] MEDS ORDERED: magnesium 4gm in 100ml NS 100 ML IV PRN (12:45)
[2021-12-20] MEDS ORDERED: LIPASE/PROTEASE/AMYLASE 16,800 UNIT CAPSULE.DR PO SCH (13:00)
[2021-12-20] MEDS ORDERED: LIPASE/PROTEASE/AMYLASE 10,500 units CAPSULE.DR PO SCH (13:00)
[2021-12-20] MEDS: carBAMazepine Ext. Release 200 MG TAB.ER.12H PO SCH ×2 (13:28→21:00)
[2021-12-20] MEDS: FLUoxetine 10mg capsule PO SCH ×2 (13:29→21:00)
[2021-12-20 14:59] LABS: ALANINE AMINOTRANSFERASE 47 U/L (12-78); ALBUMIN 3.2 G/DL (3.4-5.0); ALBUMIN/GLOBULIN RATIO 1.1 (1.1-1.5); ALKALINE PHOSPHATASE 111 IU/L (46-116); ANION GAP 9 (8-16); ASPARTATE AMINO TRANSFERASE 45 U/L (10-37); BILIRUBIN,TOTAL 0.6 MG/DL (0.1-1.0); BLOOD UREA NITROGEN 2 MG/DL (7-18); BUN/CREATININE RATIO 3.4 (6.6-38.0); CALCIUM 8.8 MG/DL (8.5-10.1); CHLORIDE 104 MMOL/L (99-107); CREATININE 0.58 MG/DL (0.40-0.90); GLUCOSE 175 MG/DL (70-104); MAGNESIUM 1.7 MG/DL (1.5-2.4); PHOSPHORUS 1.6 MG/DL (2.3-4.5); POTASSIUM 3.4 MMOL/L (3.5-5.1); PREALBUMIN 16.3 MG/DL (19-36); SODIUM 138 MMOL/L (135-145); TOTAL PROTEIN 6.2 G/DL (6.4-8.2); TRIGLYCERIDES 110 MG/DL (20-135); eGFR > 90 ML/MIN
[2021-12-20] MEDS ORDERED: [UNRECOGNIZED DRUG - OTHER] IV SCH (15:00)
[2021-12-20] MEDS ORDERED: DEXT IV SCH (15:00)
[2021-12-20] MEDS ORDERED: LYTES IV SCH (15:00)
[2021-12-20] MEDS ORDERED: CALCIUM IV SCH (15:00)
[2021-12-20] MEDS: ZINC/COPPER/MANGANESE/SELENIUM 0.5 ML, chromic chloride inj. 5 MCG in AA 5%/CALCIUM/LYT... IV SCH (15:27)
[2021-12-20 18:00] VITALS: BP_SYST 139; BP_SYST 177; BP_DIAS 80; BP_DIAS 91
[2021-12-20] MEDS: LIPASE/PROTEASE/AMYLASE 4,200 unit CAPSULE.DR PO SCH (18:00)
[2021-12-20] MEDS: LIPASE/PROTEASE/AMYLASE 10,500 units CAPSULE.DR PO SCH (18:00)
--- NOTE | 2021-12-20 18:32 | NUR ---
Problems reprioritized. Patient report given, questions answered & plan of care reviewed with Lori PEREZ. Patient resting in bed in no acute distress.
[2021-12-20] MEDS: metoclopramide 10mg tablet PO SCH (20:00)
[2021-12-20] MEDS: pantoprazole 40MG/NS 100ML BAG 100 ML IV SCH (20:22)
[2021-12-20 22:00] VITALS: BP 122/74
[2021-12-20] MEDS: oxyCODONE/APAP 10/325mg tablet PO PRN (22:02)
[2021-12-20] MEDS ORDERED: dextrose 50%-water 50ml dispensing syringe IV PRN ×2 (22:25)
[2021-12-20] MEDS ORDERED: MESSAGE TO PHARMACY PO ONE (22:25)
[2021-12-20] MEDS ORDERED: glucagon, human recombinant 1mg kit SUBCUT PRN (22:25)
[2021-12-20] MEDS ORDERED: DEXTROSE 15 GM of carb/4 tabs (each vial/BOTTLE has 4 tablets) PO PRN ×2 (22:25)
--- NOTE | 2021-12-20 22:30 | NUR ---
PT REFUSED HER ORAL MED DURING THE SHIT,AFRAID THAT SHE MIGHT VOMIT EXCEPT PRN PERCOCET
--- NOTE | 2021-12-20 22:33 | NUR ---
PT HAD CRITICAL BLOOD SUGER LEVEL OF 404,MD ISBELL NOTIFIED .ORDERED TO START HYPERGLYCEMIC PROTOCOL
[2021-12-21] MEDS: insulin Lispro (HumaLOG) vial - multi-dose SQ SCH ×4 (00:03→20:22)
[2021-12-21] MEDS: morphine 2 MG/ML inj. syringe IV PRN ×9 (00:04→22:12)
[2021-12-21 02:00] VITALS: BP 112/69
[2021-12-21] MEDS: oxyCODONE/APAP 10/325mg tablet PO PRN (03:02)
[2021-12-21 07:00] VITALS: BP 102/66
[2021-12-21] MEDS: carBAMazepine Ext. Release 200 MG TAB.ER.12H PO SCH ×3 (07:57→22:12)
[2021-12-21] MEDS: pantoprazole 40MG/NS 100ML BAG 100 ML IV SCH ×2 (07:57→19:50)
[2021-12-21] MEDS: FLUoxetine 10mg capsule PO SCH ×3 (07:58→20:32)
[2021-12-21] MEDS: metoclopramide 10mg tablet PO SCH ×2 (08:00→19:42)
[2021-12-21] MEDS ORDERED: fat emulsion IV bag 250 ML IV SCH ×3 (08:00→20:00)
[2021-12-21] MEDS: LIPASE/PROTEASE/AMYLASE 4,200 unit CAPSULE.DR PO SCH ×3 (08:00→19:42)
[2021-12-21] MEDS: K and/or MAG REPLACEMENT MC SCH ×3 (08:00→20:00)
[2021-12-21] MEDS: Neutra Phos packet PO SCH ×3 (08:00→20:16)
[2021-12-21] MEDS ORDERED: MVI, adult No.4 with vit. K 10 ML in dextrose 5% water 500ml 500 ML IV SCH ×2 (08:00)
[2021-12-21] MEDS: LIPASE/PROTEASE/AMYLASE 10,500 units CAPSULE.DR PO SCH ×3 (08:00→19:42)
[2021-12-21 11:00] VITALS: BP 107/65
[2021-12-21 15:00] VITALS: BP 138/77
[2021-12-21] MEDS: normal saline 1000ml 1,000 ML IV SCH (15:01)
[2021-12-21 17:56] LABS: BASOPHILS # (AUTO) 0.1 X10'3 (0-0.2); EOSINOPHILS % (AUTO) 0.4 % (0-6); HEMOGLOBIN 13.5 g/dl (12.0-16.0); MEAN CORPUSCULAR VOLUME 95.1 FL (78-98); MEAN PLATELET VOLUME 8.5 FL (7.4-10.4); MONOCYTES # (AUTO) 0.7 X10'3 (0-0.9); NEUTROPHILS # (AUTO) 4.2 X10'3 (1.8-7.7); RED BLOOD COUNT 4.14 X10'6 (4.20-5.60)
[2021-12-21 17:58] LABS: HEMATOCRIT 39.3 % (35.0-45.0); LYMPHOCYTES # (AUTO) 1.9 X10'3 (1.1-4.8); LYMPHOCYTES % (AUTO) 26.8 % (21-51); MEAN CORPUSCULAR HEMOGLOBIN 32.6 PG (27.0-31.0); MEAN CORPUSCULAR HGB CONC 34.3 g/dL (33.0-36.5); MONOCYTES % (AUTO) 10.2 % (2-12); NEUTROPHILS % (AUTO) 60.6 % (42-75); PLATELET COUNT 223 X10'3 (140-440); RED CELL DISTRIBUTION WIDTH 13.4 % (11.5-14.5)
[2021-12-21 18:00] VITALS: BP 122/71
[2021-12-21 18:12] LABS: ALANINE AMINOTRANSFERASE 39 U/L (12-78); ALBUMIN 3.2 G/DL (3.4-5.0); ALKALINE PHOSPHATASE 113 IU/L (46-116); ANION GAP 13 (8-16); ASPARTATE AMINO TRANSFERASE 21 U/L (10-37); BILIRUBIN,TOTAL 0.6 MG/DL (0.1-1.0); BLOOD UREA NITROGEN 7 MG/DL (7-18); BUN/CREATININE RATIO 10.4 (6.6-38.0); CALCIUM 8.6 MG/DL (8.5-10.1); CHLORIDE 102 MMOL/L (99-107); CREATININE 0.67 MG/DL (0.40-0.90); GLUCOSE 177 MG/DL (70-104); MAGNESIUM 1.8 MG/DL (1.5-2.4); PHOSPHORUS 1.7 MG/DL (2.3-4.5); SODIUM 140 MMOL/L (135-145); TOTAL CARBON DIOXIDE 25.1 MMOL/L (24-32); TOTAL PROTEIN 6.3 G/DL (6.4-8.2); eGFR > 90 ML/MIN
[2021-12-21 18:19] LABS: POTASSIUM 2.7 MMOL/L (3.5-5.1)
--- NOTE | 2021-12-21 18:21 | NUR ---
Problems reprioritized. Patient report given, questions answered & plan of care reviewed with Eveline PEREZ. Patient resting in bed in no acute distress.
[2021-12-21 18:27] LABS: PLATELET ESTIMATE NORMAL
--- NOTE | 2021-12-21 18:27 | NUR ---
Patient in room PCU 3010. I have received report from Roseline PEREZ and had the opportunity to ask questions and assume patient care.
[2021-12-21 18:28] LABS: BURR CELLS FEW; SCHISTOCYTES FEW; TARGET CELLS FEW
[2021-12-21] MEDS ORDERED: potassium Cl 40MEQ/1/2NS 520ml 520 ML IV PRN ×2 (18:40)
[2021-12-21] MEDS ORDERED: potassium Cl 20 mEq SR tablet PO PRN (18:40)
[2021-12-21] MEDS: potassium Cl 20 mEq SR tablet PO PRN ×2 (18:42→22:15)
[2021-12-21] MEDS ORDERED: potassium CL 10mEq/100ml bag 100 ML IV PRN (18:45)
[2021-12-21] MEDS: ZINC/COPPER/MANGANESE/SELENIUM 0.5 ML, chromic chloride inj. 5 MCG in AA 5%/CALCIUM/LYT... IV SCH (19:51)
[2021-12-21] MEDS ORDERED: insulin glargine (Lantus) pen - multi-dose SQ SCH (21:00)
[2021-12-21 22:00] VITALS: BP 112/70
[2021-12-22] MEDS: normal saline 1000ml 1,000 ML IV SCH (01:02)
[2021-12-22] MEDS: morphine 2 MG/ML inj. syringe IV PRN ×5 (01:05→12:44)
[2021-12-22 02:00] VITALS: BP 120/73
[2021-12-22] MEDS ORDERED: insulin regular, human U-100 3ml vial - multi-dose SQ SCH (02:25)
[2021-12-22 04:45] LABS: BASOPHILS # (AUTO) 0.1 X10'3 (0-0.2); BASOPHILS % (AUTO) 1.6 % (0-1); EOSINOPHILS # (AUTO) 0.1 X10'3 (0-0.9); EOSINOPHILS % (AUTO) 1.9 % (0-6); HEMATOCRIT 40.1 % (35.0-45.0); HEMOGLOBIN 13.6 g/dl (12.0-16.0); LYMPHOCYTES # (AUTO) 1.8 X10'3 (1.1-4.8); LYMPHOCYTES % (AUTO) 29.5 % (21-51); MEAN CORPUSCULAR HEMOGLOBIN 32.1 PG (27.0-31.0); MEAN CORPUSCULAR HGB CONC 33.8 g/dL (33.0-36.5); MEAN CORPUSCULAR VOLUME 94.8 FL (78-98); MEAN PLATELET VOLUME 8.4 FL (7.4-10.4); MONOCYTES # (AUTO) 0.5 X10'3 (0-0.9); MONOCYTES % (AUTO) 8.4 % (2-12); NEUTROPHILS # (AUTO) 3.7 X10'3 (1.8-7.7); NEUTROPHILS % (AUTO) 58.6 % (42-75); PLATELET COUNT 239 X10'3 (140-440); RED BLOOD COUNT 4.23 X10'6 (4.20-5.60); RED CELL DISTRIBUTION WIDTH 13.6 % (11.5-14.5); WHITE BLOOD COUNT 6.2 X10'3 (4.5-11.0)
[2021-12-22 05:11] LABS: ALANINE AMINOTRANSFERASE 40 U/L (12-78); ALBUMIN/GLOBULIN RATIO 0.9 (1.1-1.5); ALKALINE PHOSPHATASE 107 IU/L (46-116); ANION GAP 16 (8-16); ASPARTATE AMINO TRANSFERASE 23 U/L (10-37); BILIRUBIN,TOTAL 0.3 MG/DL (0.1-1.0); BLOOD UREA NITROGEN 8 MG/DL (7-18); BUN/CREATININE RATIO 9.8 (6.6-38.0); CALCIUM 8.6 MG/DL (8.5-10.1); CHLORIDE 105 MMOL/L (99-107); CREATININE 0.82 MG/DL (0.40-0.90); GLUCOSE 251 MG/DL (70-104); MAGNESIUM 1.9 MG/DL (1.5-2.4); PHOSPHORUS 1.8 MG/DL (2.3-4.5); POTASSIUM 3.1 MMOL/L (3.5-5.1); SODIUM 142 MMOL/L (135-145); TOTAL CARBON DIOXIDE 20.9 MMOL/L (24-32); TOTAL PROTEIN 6.2 G/DL (6.4-8.2); eGFR 76 ML/MIN
--- NOTE | 2021-12-22 06:24 | NUR ---
Problems reprioritized. Patient report given, questions answered & plan of care reviewed with Tash PEREZ.
[2021-12-22 07:00] VITALS: BP 108/75
[2021-12-22] MEDS: LIPASE/PROTEASE/AMYLASE 4,200 unit CAPSULE.DR PO SCH ×2 (07:45→12:48)
[2021-12-22] MEDS: metoclopramide 10mg tablet PO SCH (07:45)
[2021-12-22] MEDS: potassium Cl 20 mEq SR tablet PO PRN (07:45)
[2021-12-22] MEDS: LIPASE/PROTEASE/AMYLASE 10,500 units CAPSULE.DR PO SCH ×2 (07:45→12:48)
[2021-12-22] MEDS: carBAMazepine Ext. Release 200 MG TAB.ER.12H PO SCH ×2 (07:46→12:48)
[2021-12-22] MEDS: FLUoxetine 10mg capsule PO SCH ×2 (07:46→12:48)
[2021-12-22] MEDS: pantoprazole 40MG/NS 100ML BAG 100 ML IV SCH (07:53)
[2021-12-22] MEDS: K and/or MAG REPLACEMENT MC SCH (07:53)
[2021-12-22] MEDS: Neutra Phos packet PO SCH ×2 (07:54→12:49)
--- NOTE | 2021-12-22 09:30 | NUR ---
Discharge is waiting on Phos and K replacement to be completed.
--- NOTE | 2021-12-22 10:31 | NUR ---
PAGER ID: [phone] MESSAGE: [phone]: GLORIA...patient states she does not get her TPN delivered until 12/23. She is also in the middle of K+ and phos replacement. Please advise for discharge. thanks, clya [phone]
--- NOTE | 2021-12-22 11:16 | NUR ---
PAGER ID: [phone] MESSAGE: [phone] Idris, S: patients states TPN is at home. would you like the patient to finish the replacement protocol (4 more hours) or give her RX to dc sooner? thanks, clay [phone]
[2021-12-22 11:50] VITALS: BP 118/75
[2021-12-22] MEDS: ZINC/COPPER/MANGANESE/SELENIUM 0.5 ML, chromic chloride inj. 5 MCG in AA 5%/CALCIUM/LYT... IV SCH (13:01)
--- NOTE | 2021-12-22 14:30 | NUR ---
PT GETTING PACKED UP FOR DISCHARGE, SHE REQUESTED TO CHECK HER GLUCOSE WHEN SHE ARRIVED HOME AND COVER HERSELF SHE NORMALLY WOULD. Addendum: 12/22/21 at 1431 by Tash Chong RN Amended: Links added.
[2021-12-22] MEDS: oxyCODONE/APAP 10/325mg tablet PO PRN (14:55)
[2021-12-22 15:00] VITALS: BP 118/76
--- NOTE | 2021-12-22 15:05 | NUR ---
PATIENT STABLE AND APPROPRIATE FOR DISCHARGE HOME WITH [id number]. ALL BELONGINGS TAKEN FROM ROOM. NO NEW RX ORDERED. PICC LINE INTACT AND PATENT. ALL DISCHARGE INSTRUCTIONS AND EDUCATION GIVEN AND REVIEWED WITH PATIENT, ALL QUESTIONS ANSWERED.
== END 2021-12-22 15:07 | disposition home or self-care (01) | DRG 420 ==
LOC: ER 10:24 → ED HOLD 16:11 → PCU 3S 20:17
PROVIDERS: ADMIT Internal Medicine; ATTEND Internal Medicine
DX: E11.10 Type 2 diabetes mellitus with ketoacidosis without coma (principal); N17.0 Acute kidney failure with tubular necrosis; G93.41 Metabolic encephalopathy; D72.829 Elevated white blood cell count, unspecified; F32.A Depression, unspecified; G40.909 Epilepsy, unspecified, not intractable, without status epilepticus; G89.29 Other chronic pain; K21.9 Gastro-esophageal reflux disease without esophagitis; D75.1 Secondary polycythemia; E86.9 Volume depletion, unspecified; E87.6 Hypokalemia; G43.909 Migraine, unspecified, not intractable, without status migrainosus; J45.909 Unspecified asthma, uncomplicated; K86.1 Other chronic pancreatitis; Q45.3 Other congenital malformations of pancreas and pancreatic duct; Z79.4 Long term (current) use of insulin; Z90.710 Acquired absence of both cervix and uterus; Z90.81 Acquired absence of spleen; Z56.0 Unemployment, unspecified; Z88.1 Allergy status to other antibiotic agents; Z90.49 Acquired absence of other specified parts of digestive tract; Z79.899 Other long term (current) drug therapy
CPT/HCPCS: 36415; 36600; 71045; 80048; 80053; 80156; 80320; 82550; 82803; 82948; 83605; 83735; 84100; 84134; 84145; 84478; 85007; 85008; 85018; 85025; 87040; 96361; 96375; 99291; C9113; G0378; J0696; J1815; J2270; J2405; J2765; J3480; J3490; J7030; J7042; J7060

== ENCOUNTER 2022-01-04 10:14 | Emergency (ER) | payer MEDICAID ==
[~2022-01-04] VITALS: Ht 167.6 cm; Wt 53.5 kg
[~2022-01-04 10:14] MED LIST changes: -AMYL1CAP54 PO; +AMYL1CAP56 PO; -CIPR-202 PO
[2022-01-04 11:32] VITALS: BP 96/62
== END 2022-01-04 13:10 | disposition home or self-care (01) ==
LOC: ER 10:14
DX: T82.594A Other mechanical complication of infusion catheter, initial encounter (principal); G43.909 Migraine, unspecified, not intractable, without status migrainosus; J45.909 Unspecified asthma, uncomplicated; E11.9 Type 2 diabetes mellitus without complications; G89.29 Other chronic pain; M54.9 Dorsalgia, unspecified; F32.9 Major depressive disorder, single episode, unspecified; Z87.81 Personal history of (healed) traumatic fracture; Z98.890 Other specified postprocedural states; Z88.1 Allergy status to other antibiotic agents; Z79.899 Other long term (current) drug therapy
CPT/HCPCS: 99281

== ENCOUNTER 2022-01-06 09:01 | Day surgery (SDC) | payer MEDICAID ==
--- NOTE | 2022-01-06 11:16 | NUR ---
PATIENT LEFT PRIOR TO VERIFYING PLACEMENT. HOWEVER DR. DE LA ROSA SPOKE WITH ME AND VERIFIED THAT THE PLACEMENT IS CORRECT. PICC LINE IS GOOD TO USE.
== END 2022-01-06 11:00 | disposition home or self-care (01) ==
LOC: SSTAY O 09:01
PROVIDERS: ATTEND Emergency Medicine
DX: E63.9 Nutritional deficiency, unspecified (principal)
CPT/HCPCS: 36573; 71045; C1751; 36569; 76942

== ENCOUNTER 2022-03-18 15:07 | Inpatient (IN) | payer MEDICAID ==
[~2022-03-18] VITALS: Ht 167.6 cm; Wt 53.0 kg
[2022-03-18 15:43] LABS: HEMOGLOBIN 16.1 g/dl (12.0-16.0)
[2022-03-18 15:45] LABS: BASOPHILS # (AUTO) 0.1 X10'3 (0-0.2); EOSINOPHILS % (AUTO) 0.1 % (0-6); HEMATOCRIT 47.7 % (35.0-45.0); LYMPHOCYTES # (AUTO) 1.2 X10'3 (1.1-4.8); LYMPHOCYTES % (AUTO) 10.4 % (21-51); MEAN CORPUSCULAR HEMOGLOBIN 33.5 PG (27.0-31.0); MEAN CORPUSCULAR HGB CONC 33.8 g/dL (33.0-36.5); MEAN CORPUSCULAR VOLUME 99.1 FL (78-98); MONOCYTES # (AUTO) 0.9 X10'3 (0-0.9); MONOCYTES % (AUTO) 7.3 % (2-12); NEUTROPHILS # (AUTO) 9.6 X10'3 (1.8-7.7); NEUTROPHILS % (AUTO) 81.2 % (42-75); PLATELET COUNT 371 X10'3 (140-440); RED BLOOD COUNT 4.81 X10'6 (4.20-5.60); WHITE BLOOD COUNT 11.8 X10'3 (4.5-11.0)
[2022-03-18 15:48] LABS: CLARITY,URINE CLOUDY (Clear); COLOR,URINE YELLOW (Yellow); GLUCOSE, URINE 500 mg/dl (Neg); KETONES,URINE 15 mg/dl (Neg); LEUKOCYTE ESTERASE ,URINE NEGATIVE (Neg); NITRITES, URINE NEGATIVE (Neg); OCCULT BLOOD,URINE NEGATIVE (Neg); PROTEIN,URINE 30 mg/dl (Neg); UROBILINOGEN,URINE 0.2 E.U/dL (0.2-1.0)
[2022-03-18 15:49] LABS: UA COLLECTION TYPE STRAIGHT CATH; URINE HCG NEGATIVE (NEG)
[2022-03-18 15:54] LABS: BACTERIA,URINE 4+ /HPF (Neg); MUCUS STRANDS FEW /LPF (Neg); RBC,URINE NONE SEEN /HPF (0-2); SQUAMOUS EPITHELIAL CELL,UR MANY /LPF (FEW); WBC,URINE 0-4 /HPF (0-4)
[2022-03-18 15:55] LABS: YEAST FEW /HPF (NEGATIVE)
[2022-03-18 15:57] LABS: ALANINE AMINOTRANSFERASE 46 U/L (12-78); ALBUMIN 4.4 G/DL (3.4-5.0); ALKALINE PHOSPHATASE 166 IU/L (46-116); ANION GAP 13 (8-16); BILIRUBIN,TOTAL 0.6 MG/DL (0.1-1.0); BLOOD UREA NITROGEN 9 MG/DL (7-18); BUN/CREATININE RATIO 9.1 (6.6-38.0); CALCIUM 10.7 MG/DL (8.5-10.1); CHLORIDE 100 MMOL/L (99-107); CREATININE 0.99 MG/DL (0.40-0.90); GLUCOSE 284 MG/DL (70-104); LARGE PLATELETS FEW; LIPASE < 50 U/L (73-393); PLATELET ESTIMATE NORMAL; SODIUM 137 MMOL/L (135-145); TOTAL CARBON DIOXIDE 23.8 MMOL/L (24-32); TOTAL PROTEIN 8.8 G/DL (6.4-8.2); eGFR 61 ML/MIN
[2022-03-18 15:58] LABS: ASPARTATE AMINO TRANSFERASE 41 U/L (10-37); BURR CELLS 2+; POTASSIUM 4.3 MMOL/L (3.5-5.1); TARGET CELLS FEW
[2022-03-18] MEDS ORDERED: ondansetron/PF 4mg/2ml inj IV ONE (16:15)
[2022-03-18] MEDS ORDERED: ringers solution, lacted 1,000 ML IV ONE ×2 (16:15→18:15)
[2022-03-18] MEDS ORDERED: HYDROmorphone/PF 0.2 MG/ML SYRINGE IV ONE (16:15)
[2022-03-18] MEDS ORDERED: iohexol 350MG/ML 100ml bottle IV ONE (16:25)
[2022-03-18 17:55] LABS: ABG BASE EXCESS 0.3 mmol/L (-2.0-2.0); ABG HCO3 22.9 mmol/L (22.0-26.0); ABG OXYGEN SATURATION 94.6 % (94-97); ABG PCO2 (T) 31.6 mmHg (32.0-45.0); ABG PO2 (T) 72.8 mmHg (75.0-100.0); ALLEN'S TEST POSITIVE; FCOHb 1.1 % (0.0-3.9); FMetHb 0.2 % (0.0-1.5); FO2Hb 93.4 % (94-97); TOTAL HEMOGLOBIN 15.3 G/dl (12.0-16.0)
[2022-03-18] MEDS ORDERED: HYDROmorphone inj. 0.5 MG/0.5 ML DISP.SYRIN IV ONE (18:10)
[2022-03-18] MEDS ORDERED: bisacodyl 10mg suppository rectal RC PRN (21:30)
[2022-03-18] MEDS ORDERED: HYDROcodone/acetaminophen 5mg/325mg tablet PO PRN (21:30)
[2022-03-18] MEDS ORDERED: HYDROmorphone/PF 0.2 MG/ML SYRINGE IV PRN (21:30)
[2022-03-18] MEDS ORDERED: magnesium Cl slow-release 64mg tablet PO PRN (21:30)
[2022-03-18] MEDS ORDERED: magnesium 2GM in 50ml NS 50 ML IV PRN (21:30)
[2022-03-18] MEDS ORDERED: potassium CL 10mEq/100ml bag 100 ML IV PRN (21:30)
[2022-03-18] MEDS ORDERED: mag hydrox/Alum hydrox/simeth 30ml oral suspension PO PRN (21:30)
[2022-03-18] MEDS ORDERED: ondansetron 4mg rapidly disintigrating tab PO PRN (21:30)
[2022-03-18] MEDS ORDERED: acetaminophen 325mg tablet PO PRN ×2 (21:30)
[2022-03-18] MEDS ORDERED: magnesium hydroxide 30ml (MOM) UD suspension PO PRN (21:30)
[2022-03-18] MEDS ORDERED: HYDROcodone/acetaminophen 10/325mg tab PO PRN (21:30)
[2022-03-18] MEDS ORDERED: magnesium 4gm in 100ml NS 100 ML IV PRN (21:30)
[2022-03-18] MEDS ORDERED: POTASSIUM BICARB 20meq eff tab 20 MEQ TABLET.EFF PO PRN ×2 (21:30)
[2022-03-18] MEDS ORDERED: acetaminophen 650mg rectal suppository RC PRN (21:30)
[2022-03-18 21:49] LABS: MAGNESIUM 1.7 MG/DL (1.5-2.4)
[2022-03-18] MEDS: normal saline 1000ml 1,000 ML IV SCH (22:04)
[2022-03-18] MEDS: IOHEXOL 12MG/ML oral solution 500 ML BOTTLE PO SCH (22:04)
[2022-03-18 22:15] LABS: APTT 28 SECONDS (22-32)
--- NOTE | 2022-03-18 22:51 | NUR ---
Patient in room ORTHO 4015. I have received report from Jose Manuel PEREZ ED and had the opportunity to ask questions and assume patient care. Addendum: 03/19/22 at 0028 by Jaylin Lynch RN Amended: Links added.
[2022-03-18 23:10] VITALS: BP 156/83
--- NOTE | 2022-03-18 23:10 | NUR ---
Pt. arrived on the floor via inocencia accompanied by the lead based paint technician. Pt. awake A & O x 4 at this time. Pt. denies c/o N/V at this time. Oriented pt. to room. Call light within reach and bed in low position. Addendum: 03/19/22 at 0031 by Jaylin Lynch RN Amended: Links added.
[2022-03-18] MEDS: HYDROmorphone inj. 0.5 MG/0.5 ML DISP.SYRIN IV PRN (23:45)
[2022-03-19] VITALS (19 sets, daily range): BP systolic 132–189; BP diastolic 69–119
[2022-03-19] MEDS: HYDROmorphone inj. 0.5 MG/0.5 ML DISP.SYRIN IV PRN ×2 (03:30→07:13)
--- NOTE | 2022-03-19 06:30 | NUR ---
Problems reprioritized. Patient report given, questions answered & plan of care reviewed with Emma PEREZ. Addendum: 03/19/22 at 0635 by Jaylin Lynch RN Amended: Links added.
[2022-03-19 06:31] LABS: BASOPHILS # (AUTO) 0.1 X10'3 (0-0.2); BASOPHILS % (AUTO) 0.5 % (0-1); EOSINOPHILS % (AUTO) 0 % (0-6); HEMATOCRIT 39.6 % (35.0-45.0); HEMOGLOBIN 13.2 g/dl (12.0-16.0); LYMPHOCYTES # (AUTO) 1.5 X10'3 (1.1-4.8); LYMPHOCYTES % (AUTO) 12.4 % (21-51); MEAN CORPUSCULAR HEMOGLOBIN 32.7 PG (27.0-31.0); MEAN CORPUSCULAR HGB CONC 33.4 g/dL (33.0-36.5); MEAN CORPUSCULAR VOLUME 97.7 FL (78-98); MONOCYTES % (AUTO) 8.5 % (2-12); NEUTROPHILS # (AUTO) 9.7 X10'3 (1.8-7.7); NEUTROPHILS % (AUTO) 78.6 % (42-75); PLATELET COUNT 327 X10'3 (140-440); RED BLOOD COUNT 4.05 X10'6 (4.20-5.60); WHITE BLOOD COUNT 12.4 X10'3 (4.5-11.0)
[2022-03-19 06:44] LABS: ALANINE AMINOTRANSFERASE 40 U/L (12-78); ALBUMIN 3.7 G/DL (3.4-5.0); ALBUMIN/GLOBULIN RATIO 1.1 (1.1-1.5); ALKALINE PHOSPHATASE 137 IU/L (46-116); ANION GAP 13 (8-16); ASPARTATE AMINO TRANSFERASE 28 U/L (10-37); BILIRUBIN,TOTAL 0.5 MG/DL (0.1-1.0); BLOOD UREA NITROGEN 11 MG/DL (7-18); BUN/CREATININE RATIO 14.1 (6.6-38.0); CHLORIDE 101 MMOL/L (99-107); CREATININE 0.78 MG/DL (0.40-0.90); GLUCOSE 305 MG/DL (70-104); MAGNESIUM 1.8 MG/DL (1.5-2.4); POTASSIUM 3.6 MMOL/L (3.5-5.1); SODIUM 136 MMOL/L (135-145); TOTAL CARBON DIOXIDE 22.5 MMOL/L (24-32); TOTAL PROTEIN 7.1 G/DL (6.4-8.2); eGFR 80 ML/MIN
--- NOTE | 2022-03-19 06:46 | NUR ---
Patient in room ORTHO 4015. I have received report from CHRIS Mosqueda and had the opportunity to ask questions and assume patient care.
[2022-03-19] MEDS: IOHEXOL 12MG/ML oral solution 500 ML BOTTLE PO SCH ×2 (07:18→10:08)
[2022-03-19] MEDS: ondansetron/PF 4mg/2ml inj IV PRN (07:25)
[2022-03-19] MEDS: normal saline 1000ml 1,000 ML IV SCH ×2 (07:31→15:31)
--- NOTE | 2022-03-19 07:47 | NUR ---
Page to Dr Bowens PAGER ID: [phone] MESSAGE: Emma O/N [phone] [facility] [id number] pt AM blood glucose 298, pt is diabetic with no DM protocol ordered. Please call with orders, thank you
[2022-03-19] MEDS: K and/or MAG REPLACEMENT MC SCH ×2 (08:00→20:00)
[2022-03-19] MEDS ORDERED: dextrose 50%-water 50ml dispensing syringe IV PRN ×2 (08:00)
[2022-03-19] MEDS ORDERED: MESSAGE TO PHARMACY PO ONE (08:00)
[2022-03-19] MEDS ORDERED: docusate sod 100mg capsule PO SCH (08:00)
[2022-03-19] MEDS ORDERED: glucagon, human recombinant 1mg kit SUBCUT PRN (08:00)
[2022-03-19] MEDS ORDERED: DEXTROSE 15 GM of carb/4 tabs (each vial/BOTTLE has 4 tablets) PO PRN ×2 (08:00)
[2022-03-19] MEDS ORDERED: insulin regular, human U-100 3ml vial - multi-dose ONE (08:24)
[2022-03-19] MEDS ORDERED: BUPIVAcaine/PF 2.5mg/ml (0.25%) 10ml vial ONE (08:49)
[2022-03-19] MEDS ORDERED: BUPIVACAINE liposomal/PF 13.3 MG/ML vial IM ONE (08:49)
[2022-03-19] MEDS ORDERED: ondansetron/PF 4mg/2ml inj IV PRN (08:50)
[2022-03-19] MEDS ORDERED: midazolam 1 mg/ML 2ml injection ONE (08:50)
[2022-03-19] MEDS ORDERED: labetalol 20mg/4ml (5mg/ml) syringe IV PRN (08:50)
[2022-03-19] MEDS ORDERED: hydrALAZINE 20mg/ml inj. IV PRN (08:50)
[2022-03-19] MEDS ORDERED: proCHLORperazine 10 MG/2 ml inj IV PRN (08:50)
[2022-03-19] MEDS ORDERED: ringers solution, lacted 1,000 ML IV SCH (08:50)
[2022-03-19] MEDS ORDERED: fentaNYL /PF 50mcg/ml 5ml ampule ONE (08:50)
[2022-03-19] MEDS ORDERED: morphine 2 MG/ML inj. syringe IV PRN (08:50)
[2022-03-19] MEDS ORDERED: meperidine/PF 25mg/ml syringe IV PRN (08:50)
[2022-03-19] MEDS ORDERED: acetaminophen 1,000mg/100ml IV 100 ML IV PRN (08:50)
[2022-03-19] MEDS ORDERED: morphine 4 MG/ML inj SYRINge IV PRN (08:50)
[2022-03-19] MEDS ORDERED: HYDROmorphone/PF 0.2 MG/ML SYRINGE IV PRN ×2 (08:50→10:15)
[2022-03-19] MEDS ORDERED: propofol inj 20 ML IV ONE ×2 (09:02→10:28)
[2022-03-19] MEDS ORDERED: rocuronium 10mg/ml inj IV ONE ×2 (09:02→09:36)
[2022-03-19] MEDS ORDERED: LIDOcaine 2% (20mg/ml) 5ml vial ONE (09:02)
--- NOTE | 2022-03-19 09:06 | NUR ---
Initial: Pt presented with c/o abdominal pain with N/V, intussusception noted on CT per H&P. Pt currently NPO pending CT with oral contrast per EMR. Noted pt with T2DM, current A1c is 10.7% which is down from 12.8% 12/10/21 per EMR. DM education not appropriate at this time as pt is chronically on TPN. No TPN consult at this time though will place recommendations below for once nutrition support to be initiated. Will continue to follow closely. Recommendations: 1) Once TPN, continuous TPN using 2:1 Clinimix-E 11/19 with goal rate of 65 mL/hr with additional 250 mL 20% intralipids to run at 20.83 mL/hr for 12 hours on Tuesdays and Fridays. To provide 1560 mL total volume/day, 78 g AA, 312 g dextrose (4.08 mg/kg/min), and average 1516 kcal/day 2) Once TPN, Prealbumin and TG q Monday/ 3) Once TPN, Daily scaled weights 4) Bowel care per physician Addendum: 03/19/22 at [address] Amended: Links added.
[2022-03-19] MEDS ORDERED: ceFOXitin 1000 MG inj ONE ×3 (09:14)
[2022-03-19] MEDS ORDERED: ondansetron/PF 4mg/2ml inj ONE (09:36)
[2022-03-19] MEDS ORDERED: dexamethasone sod phosphate 4mg/ml inj. ONE (09:36)
[2022-03-19] MEDS ORDERED: pantoprazole 40MG/NS 100ML BAG 100 ML IV SCH (09:41)
[2022-03-19] MEDS: NORMAL SALINE IV SCH (10:00)
[2022-03-19] MEDS: FAMOTIDINE IV SCH (10:00)
[2022-03-19] MEDS ORDERED: HYDROmorphone inj. 0.5 MG/0.5 ML DISP.SYRIN IV PRN (10:15)
[2022-03-19] MEDS ORDERED: morphine 4 MG/ML inj SYRINge ONE (10:28)
[2022-03-19] MEDS ORDERED: neostigmine methylsulfate 1 MG/ML 10ml vial ONE (10:28)
[2022-03-19] MEDS ORDERED: glycopyrrolate 0.2mg/ml inj ONE (10:28)
[2022-03-19] MEDS ORDERED: morphine 10mg/ml inj. ONE (10:34)
--- NOTE | 2022-03-19 10:43 | NUR ---
Received from OR via SURGICAL BED, accompanied by Anesthesiologist DR SUBRAMANIAN and report given by Anesthesiolgist. ABD DRSG TO ABD CDI. SCD'S ON. IV PATENT INFUSING LR AND PEPCID GTT PER PROTOCOL. PT MOANING OUT IN PAIN. ANESTHESIA AT BEDSIDE TO GIVE ANALGESIC.
[2022-03-19] MEDS: HYDROmorphone/PF 0.2 MG/ML SYRINGE IV PRN ×2 (11:41→11:52)
--- NOTE | 2022-03-19 11:57 | NUR ---
PAIN MEDICATED WITH VARIOUS PAIN MEDICATIONS IN PACU ORDERED BY MD. PT STATES THERE IS NO RELIEF IN HER PAIN WHATSOEVER. I ENCOURAGED PT TO DEEP BREATH AND PROVIDED WARM BLANKET TO ABD FOR COMFORT. PT IS NOW ABLE TO REST IT APPEARS AND IS LAYING QUIETLY IN HER BED. PT NO LONGER MOANING BUT WHEN ASKED STATES PAIN IS STILL 12/10.
--- NOTE | 2022-03-19 12:00 | NUR ---
pt returned from OR via hospital bed. Post op VS started.
--- NOTE | 2022-03-19 12:03 | NUR ---
Pt to room 4015 B via surgical bed. Report given to Emma PEREZ who is at pt bedside upon arrival. pt set up on post op vitals per protocol. IV remains patent, scds on, bed low and locked and call light in reach. pt oriented to room and call light. pt denies nausea and states she is ready for more pain medication. pt still appears comfortable and is appears to be resting quietly. Abd drsg remains unchanged with small amount of drainage you can see under but not leaking out and drainage area is not any bigger. Abd soft.
[2022-03-19] MEDS ORDERED: naloxone 0.4 mg/ml inj IV PRN (14:00)
[2022-03-19] MEDS: HYDROmorph/NS 0.2 mg/ml PCA 100 ML IV SCH ×5 (15:26→23:00)
--- NOTE | 2022-03-19 19:02 | NUR ---
Problems reprioritized. Patient report given, questions answered & plan of care reviewed with CHRIS Mahan.
--- NOTE | 2022-03-19 19:03 | NUR ---
Patient in room ORTHO 4015. I have received report from ANGELIKA PEREZ and had the opportunity to ask questions and assume patient care.
[2022-03-19] MEDS: ciprofloxacin lact 400MG/200ML 200 ML IV SCH (19:47)
[2022-03-19] MEDS: insulin Lispro (HumaLOG) vial - multi-dose SQ SCH ×2 (19:49→21:15)
[2022-03-19] MEDS ORDERED: pantoprazole 40mg Tablet.DR PO SCH (20:00)
[2022-03-19] MEDS: insulin glargine (Lantus) pen - multi-dose SQ SCH (21:13)
[2022-03-20] MEDS: metroNIDAZOLE-Flagyl 500mg/NS 100 ML IV SCH ×4 (00:07→23:41)
[2022-03-20] MEDS: HYDROmorph/NS 0.2 mg/ml PCA 100 ML IV SCH ×13 (01:00→23:00)
[2022-03-20 02:00] VITALS: BP 118/70
[2022-03-20] MEDS: normal saline 1000ml 1,000 ML IV SCH ×3 (03:56→17:03)
[2022-03-20 05:00] VITALS: BP 163/89
[2022-03-20 05:51] LABS: BASOPHILS # (AUTO) 0.1 X10'3 (0-0.2); BASOPHILS % (AUTO) 0.5 % (0-1); EOSINOPHILS # (AUTO) 0.1 X10'3 (0-0.9); EOSINOPHILS % (AUTO) 0.6 % (0-6); HEMATOCRIT 36.4 % (35.0-45.0); HEMOGLOBIN 12.2 g/dl (12.0-16.0); LYMPHOCYTES # (AUTO) 1.8 X10'3 (1.1-4.8); LYMPHOCYTES % (AUTO) 8.7 % (21-51); MEAN CORPUSCULAR HGB CONC 33.5 g/dL (33.0-36.5); MEAN CORPUSCULAR VOLUME 98.7 FL (78-98); MEAN PLATELET VOLUME 9.6 FL (7.4-10.4); MONOCYTES # (AUTO) 1.5 X10'3 (0-0.9); MONOCYTES % (AUTO) 7.1 % (2-12); NEUTROPHILS # (AUTO) 17.3 X10'3 (1.8-7.7); NEUTROPHILS % (AUTO) 83.1 % (42-75); PLATELET COUNT 287 X10'3 (140-440); RED BLOOD COUNT 3.69 X10'6 (4.20-5.60); RED CELL DISTRIBUTION WIDTH 13.7 % (11.5-14.5); WHITE BLOOD COUNT 20.8 X10'3 (4.5-11.0)
[2022-03-20 05:57] LABS: ALANINE AMINOTRANSFERASE 48 U/L (12-78); ALBUMIN 3.2 G/DL (3.4-5.0); ALKALINE PHOSPHATASE 113 IU/L (46-116); ANION GAP 9 (8-16); ASPARTATE AMINO TRANSFERASE 39 U/L (10-37); BILIRUBIN,TOTAL 0.6 MG/DL (0.1-1.0); BLOOD UREA NITROGEN 8 MG/DL (7-18); BUN/CREATININE RATIO 11.9 (6.6-38.0); CALCIUM 8.4 MG/DL (8.5-10.1); CHLORIDE 100 MMOL/L (99-107); CREATININE 0.67 MG/DL (0.40-0.90); GLUCOSE 256 MG/DL (70-104); MAGNESIUM 1.7 MG/DL (1.5-2.4); POTASSIUM 3.6 MMOL/L (3.5-5.1); SODIUM 134 MMOL/L (135-145); TOTAL CARBON DIOXIDE 25.3 MMOL/L (24-32); TOTAL PROTEIN 6.3 G/DL (6.4-8.2); eGFR > 90 ML/MIN
--- NOTE | 2022-03-20 07:22 | NUR ---
Problems reprioritized. Patient report given, questions answered & plan of care reviewed with raudel rn.
--- NOTE | 2022-03-20 07:30 | NUR ---
Patient in room ORTHO 4015. I have received report from Minda Perla RN and had the opportunity to ask questions and assume patient care.
[2022-03-20] MEDS: NORMAL SALINE IV SCH (08:12)
[2022-03-20] MEDS: FAMOTIDINE IV SCH (08:12)
[2022-03-20 10:00] VITALS: BP 153/83
[2022-03-20] MEDS: K and/or MAG REPLACEMENT MC SCH ×2 (10:09→19:31)
[2022-03-20] MEDS: insulin Lispro (HumaLOG) vial - multi-dose SQ SCH ×2 (10:55→13:59)
[2022-03-20] MEDS: ciprofloxacin lact 400MG/200ML 200 ML IV SCH ×2 (11:08→19:26)
[2022-03-20] MEDS ORDERED: HYDROmorph/NS 0.2 mg/ml PCA 100 ML IV SCH (12:20)
[2022-03-20 16:02] LABS: BASOPHILS # (AUTO) 0.1 X10'3 (0-0.2); BASOPHILS % (AUTO) 0.5 % (0-1); EOSINOPHILS # (AUTO) 0.6 X10'3 (0-0.9); EOSINOPHILS % (AUTO) 4.4 % (0-6); HEMATOCRIT 34.9 % (35.0-45.0); HEMOGLOBIN 11.8 g/dl (12.0-16.0); LYMPHOCYTES # (AUTO) 1.7 X10'3 (1.1-4.8); LYMPHOCYTES % (AUTO) 12.8 % (21-51); MEAN CORPUSCULAR HEMOGLOBIN 33.5 PG (27.0-31.0); MEAN CORPUSCULAR HGB CONC 33.9 g/dL (33.0-36.5); MEAN CORPUSCULAR VOLUME 98.9 FL (78-98); MONOCYTES # (AUTO) 1.2 X10'3 (0-0.9); MONOCYTES % (AUTO) 8.6 % (2-12); NEUTROPHILS # (AUTO) 9.9 X10'3 (1.8-7.7); NEUTROPHILS % (AUTO) 73.7 % (42-75); PLATELET COUNT 272 X10'3 (140-440); RED BLOOD COUNT 3.53 X10'6 (4.20-5.60); RED CELL DISTRIBUTION WIDTH 13.5 % (11.5-14.5); WHITE BLOOD COUNT 13.5 X10'3 (4.5-11.0)
[2022-03-20 18:00] VITALS: BP 135/79
--- NOTE | 2022-03-20 18:30 | NUR ---
Problems reprioritized. Patient report given, questions answered & plan of care reviewed with CHRIS Carlin.
[2022-03-20] MEDS: insulin glargine (Lantus) pen - multi-dose SQ SCH (21:23)
[2022-03-20 22:00] VITALS: BP 122/70
[2022-03-21] MEDS: HYDROmorph/NS 0.2 mg/ml PCA 100 ML IV SCH ×12 (01:00→23:00)
[2022-03-21] MEDS: PCA WASTE DOCUMENTATION MC SCH ×2 (02:48→16:03)
--- NOTE | 2022-03-21 02:53 | NUR ---
COBOL ENGINEER Dilaudid IV bag replaced at this time. Previous bag had stated completed but still had fluid. Waste completed and documented with Barbara PEREZ.
[2022-03-21] MEDS: normal saline 1000ml 1,000 ML IV SCH ×3 (03:36→15:24)
[2022-03-21 05:52] LABS: BASOPHILS % (AUTO) 0.4 % (0-1); EOSINOPHILS # (AUTO) 0.9 X10'3 (0-0.9); EOSINOPHILS % (AUTO) 7.9 % (0-6); HEMATOCRIT 33.1 % (35.0-45.0); HEMOGLOBIN 11.3 g/dl (12.0-16.0); LYMPHOCYTES # (AUTO) 1.3 X10'3 (1.1-4.8); LYMPHOCYTES % (AUTO) 11.7 % (21-51); MEAN CORPUSCULAR HEMOGLOBIN 33.6 PG (27.0-31.0); MEAN CORPUSCULAR HGB CONC 34.2 g/dL (33.0-36.5); MEAN CORPUSCULAR VOLUME 98.3 FL (78-98); MONOCYTES # (AUTO) 1.2 X10'3 (0-0.9); MONOCYTES % (AUTO) 11.4 % (2-12); NEUTROPHILS # (AUTO) 7.4 X10'3 (1.8-7.7); NEUTROPHILS % (AUTO) 68.6 % (42-75); PLATELET COUNT 262 X10'3 (140-440); RED BLOOD COUNT 3.36 X10'6 (4.20-5.60); RED CELL DISTRIBUTION WIDTH 13.8 % (11.5-14.5); WHITE BLOOD COUNT 10.8 X10'3 (4.5-11.0)
[2022-03-21 06:00] VITALS: BP 128/73
[2022-03-21 06:14] LABS: ALANINE AMINOTRANSFERASE 41 U/L (12-78); ALBUMIN 2.9 G/DL (3.4-5.0); ALKALINE PHOSPHATASE 94 IU/L (46-116); ANION GAP 9 (8-16); ASPARTATE AMINO TRANSFERASE 29 U/L (10-37); BILIRUBIN,TOTAL 0.3 MG/DL (0.1-1.0); BLOOD UREA NITROGEN 4 MG/DL (7-18); BUN/CREATININE RATIO 7.7 (6.6-38.0); CALCIUM 8.1 MG/DL (8.5-10.1); CHLORIDE 102 MMOL/L (99-107); CREATININE 0.52 MG/DL (0.40-0.90); GLUCOSE 145 MG/DL (70-104); MAGNESIUM 1.6 MG/DL (1.5-2.4); POTASSIUM 3.1 MMOL/L (3.5-5.1); SODIUM 137 MMOL/L (135-145); TOTAL CARBON DIOXIDE 26.5 MMOL/L (24-32); TOTAL PROTEIN 5.7 G/DL (6.4-8.2); eGFR > 90 ML/MIN
[2022-03-21] MEDS: metroNIDAZOLE-Flagyl 500mg/NS 100 ML IV SCH ×2 (07:48→16:25)
[2022-03-21] MEDS: ciprofloxacin lact 400MG/200ML 200 ML IV SCH ×2 (07:48→19:28)
[2022-03-21] MEDS: NORMAL SALINE IV SCH (07:48)
[2022-03-21] MEDS: FAMOTIDINE IV SCH (07:48)
[2022-03-21] MEDS: K and/or MAG REPLACEMENT MC SCH ×2 (08:00→19:19)
[2022-03-21] MEDS: insulin Lispro (HumaLOG) vial - multi-dose SQ SCH ×2 (08:13→19:01)
[2022-03-21 10:00] VITALS: BP 125/69
--- NOTE | 2022-03-21 11:35 | NUR ---
Spoke to pharmacist Riana who is aware that when I was trying to record my CADD settings check the number of attempts patient has had is 1084 but the computer will only let me chart 1000 otherwise states to many attempts. Per Pharmacist put a note in for documentation purposes.
[2022-03-21] MEDS ORDERED: potassium Cl 20 mEq SR tablet PO PRN (11:40)
[2022-03-21] MEDS: potassium Cl 20 mEq SR tablet PO PRN ×3 (12:01→21:22)
[2022-03-21] MEDS: ketorolac trometh. 30mg/ml inj. IV SCH ×2 (17:19→18:09)
[2022-03-21 17:55] LABS: H PYLORI ANTIBODY NEGATIVE (Neg)
[2022-03-21 18:00] VITALS: BP 153/97
--- NOTE | 2022-03-21 18:16 | NUR ---
Problems reprioritized. Patient report given, questions answered & plan of care reviewed with Moni PEREZ.
--- NOTE | 2022-03-21 18:45 | NUR ---
Agree with Jeremy WATTERS assessment on patient. Addendum: 03/21/22 at 1846 by Cathleen Simon RN Correction charted on wrong patient.
[2022-03-21] MEDS ORDERED: OXYC10TA47 PO (18:50)
[2022-03-21] MEDS ORDERED: CARB-101 PO (18:50)
[2022-03-21] MEDS ORDERED: PANT-47 PO (18:50)
[2022-03-21] MEDS ORDERED: BUPR2TAB11 SL (18:50)
[2022-03-21] MEDS ORDERED: HYDR12.55 PO (18:56)
[2022-03-21] MEDS ORDERED: INSU100I31 SQ (18:56)
[2022-03-21] MEDS ORDERED: ONDA8TAB13 PO (19:34)
[2022-03-21] MEDS ORDERED: INSU100V11 INJ (19:39)
[2022-03-21] MEDS ORDERED: AMYL1CAP57 PO (19:42)
[2022-03-21] MEDS: insulin glargine (Lantus) pen - multi-dose SQ SCH (21:21)
[2022-03-21 22:00] VITALS: BP 127/77
[2022-03-22] MEDS: metroNIDAZOLE-Flagyl 500mg/NS 100 ML IV SCH ×4 (00:03→23:57)
[2022-03-22] MEDS: HYDROmorph/NS 0.2 mg/ml PCA 100 ML IV SCH ×12 (01:08→23:00)
[2022-03-22] MEDS: normal saline 1000ml 1,000 ML IV SCH ×3 (01:09→17:37)
[2022-03-22] MEDS: PCA WASTE DOCUMENTATION MC SCH ×2 (01:12→13:00)
[2022-03-22] MEDS: ketorolac trometh. 30mg/ml inj. IV SCH ×4 (02:07→20:02)
[2022-03-22 06:00] VITALS: BP 116/76
--- NOTE | 2022-03-22 06:22 | NUR ---
Report given to Cathleen PEREZ.
[2022-03-22 06:36] LABS: BASOPHILS % (AUTO) 0.4 % (0-1); EOSINOPHILS # (AUTO) 1.3 X10'3 (0-0.9); HEMATOCRIT 34.6 % (35.0-45.0); HEMOGLOBIN 11.4 g/dl (12.0-16.0); LYMPHOCYTES # (AUTO) 1.4 X10'3 (1.1-4.8); LYMPHOCYTES % (AUTO) 12.2 % (21-51); MEAN CORPUSCULAR HGB CONC 33.1 g/dL (33.0-36.5); MEAN CORPUSCULAR VOLUME 99.7 FL (78-98); MONOCYTES # (AUTO) 1.3 X10'3 (0-0.9); MONOCYTES % (AUTO) 11.4 % (2-12); NEUTROPHILS # (AUTO) 7.4 X10'3 (1.8-7.7); PLATELET COUNT 269 X10'3 (140-440); RED BLOOD COUNT 3.47 X10'6 (4.20-5.60); RED CELL DISTRIBUTION WIDTH 13.8 % (11.5-14.5); WHITE BLOOD COUNT 11.4 X10'3 (4.5-11.0)
[2022-03-22 06:47] LABS: ALANINE AMINOTRANSFERASE 37 U/L (12-78); ALBUMIN 2.8 G/DL (3.4-5.0); ALBUMIN/GLOBULIN RATIO 0.9 (1.1-1.5); ALKALINE PHOSPHATASE 104 IU/L (46-116); ANION GAP 8 (8-16); ASPARTATE AMINO TRANSFERASE 28 U/L (10-37); BILIRUBIN,TOTAL 0.3 MG/DL (0.1-1.0); BLOOD UREA NITROGEN 1 MG/DL (7-18); BUN/CREATININE RATIO 2.1 (6.6-38.0); CALCIUM 8.3 MG/DL (8.5-10.1); CHLORIDE 105 MMOL/L (99-107); CREATININE 0.47 MG/DL (0.40-0.90); GLUCOSE 125 MG/DL (70-104); MAGNESIUM 1.7 MG/DL (1.5-2.4); POTASSIUM 3.8 MMOL/L (3.5-5.1); SODIUM 138 MMOL/L (135-145); TOTAL CARBON DIOXIDE 24.7 MMOL/L (24-32); TOTAL PROTEIN 5.8 G/DL (6.4-8.2); eGFR > 90 ML/MIN
--- NOTE | 2022-03-22 06:47 | NUR ---
Patient in room ORTHO 4015. I have received report from Moni PEREZ and had the opportunity to ask questions and assume patient care.
[2022-03-22] MEDS: ciprofloxacin lact 400MG/200ML 200 ML IV SCH ×2 (07:26→20:02)
[2022-03-22] MEDS: FAMOTIDINE IV SCH (07:47)
[2022-03-22] MEDS: NORMAL SALINE IV SCH (07:47)
[2022-03-22] MEDS: K and/or MAG REPLACEMENT MC SCH ×2 (08:00→20:00)
--- NOTE | 2022-03-22 08:41 | NUR ---
Reassessment: Pt s/p ex lap with ulcer perforation repair per EMR. Pt on Clear liquids refusing mostly everything. TC to RN who states pt does not have PICC so no way to get TPN. Pt at high risk for developing malnutrition if unable to initiate nutrition support. LB 03/18. Will continue to monitor. Recommendations: 1) Once TPN, continuous TPN using 2:1 Clinimix-E 11/19 with goal rate of 65 mL/hr with additional 250 mL 20% intralipids to run at 20.83 mL/hr for 12 hours on Tuesdays and Fridays. To provide 1560 mL total volume/day, 78 g AA, 312 g dextrose (4.08 mg/kg/min), and average 1516 kcal/day 2) Once TPN, Prealbumin and TG q Monday/ 3) Once TPN, Daily scaled weights 4) Bowel care per physician Addendum: 03/22/22 at [address] Amended: Links added.
[2022-03-22 10:37] VITALS: BP 120/80
[2022-03-22] MEDS ORDERED: CLON-371 PO (12:46)
[2022-03-22] MEDS: insulin Lispro (HumaLOG) vial - multi-dose SQ SCH (13:17)
[2022-03-22 18:00] VITALS: BP 129/75
--- NOTE | 2022-03-22 18:39 | NUR ---
Problems reprioritized. Patient report given, questions answered & plan of care reviewed with Moni PEREZ.
[2022-03-22] MEDS: clonazePAM 1mg tablet PO PRN (20:03)
[2022-03-22] MEDS: insulin glargine (Lantus) pen - multi-dose SQ SCH (21:13)
[2022-03-22 22:00] VITALS: BP 118/75
[2022-03-23] MEDS: HYDROmorph/NS 0.2 mg/ml PCA 100 ML IV SCH ×12 (00:54→23:00)
[2022-03-23] MEDS: ketorolac trometh. 30mg/ml inj. IV SCH ×4 (02:03→21:58)
[2022-03-23] MEDS: normal saline 1000ml 1,000 ML IV SCH ×3 (02:04→21:52)
[2022-03-23 06:00] VITALS: BP 109/67
--- NOTE | 2022-03-23 06:52 | NUR ---
Patient in room ORTHO 4015. I have received report from CHRIS Carlin and had the opportunity to ask questions and assume patient care.
[2022-03-23 07:14] LABS: BASOPHILS # (AUTO) 0.1 X10'3 (0-0.2); EOSINOPHILS # (AUTO) 1.4 X10'3 (0-0.9); MEAN CORPUSCULAR HEMOGLOBIN 33.7 PG (27.0-31.0); RED CELL DISTRIBUTION WIDTH 13.4 % (11.5-14.5)
[2022-03-23 07:17] LABS: BASOPHILS % (AUTO) 0.9 % (0-1); EOSINOPHILS % (AUTO) 14.6 % (0-6); HEMOGLOBIN 11.9 g/dl (12.0-16.0); LYMPHOCYTES # (AUTO) 1.6 X10'3 (1.1-4.8); LYMPHOCYTES % (AUTO) 16.2 % (21-51); MEAN CORPUSCULAR HGB CONC 33.9 g/dL (33.0-36.5); MEAN CORPUSCULAR VOLUME 99.5 FL (78-98); MONOCYTES # (AUTO) 1.2 X10'3 (0-0.9); MONOCYTES % (AUTO) 12.1 % (2-12); NEUTROPHILS # (AUTO) 5.5 X10'3 (1.8-7.7); NEUTROPHILS % (AUTO) 56.2 % (42-75); PLATELET COUNT 307 X10'3 (140-440); RED BLOOD COUNT 3.52 X10'6 (4.20-5.60); WHITE BLOOD COUNT 9.7 X10'3 (4.5-11.0)
[2022-03-23 07:26] LABS: ALANINE AMINOTRANSFERASE 36 U/L (12-78); ALKALINE PHOSPHATASE 111 IU/L (46-116); ANION GAP 8 (8-16); ASPARTATE AMINO TRANSFERASE 25 U/L (10-37); BILIRUBIN,TOTAL 0.3 MG/DL (0.1-1.0); BLOOD UREA NITROGEN 1 MG/DL (7-18); BUN/CREATININE RATIO 1.8 (6.6-38.0); CALCIUM 8.4 MG/DL (8.5-10.1); CHLORIDE 110 MMOL/L (99-107); CREATININE 0.55 MG/DL (0.40-0.90); GLUCOSE 68 MG/DL (70-104); POTASSIUM 3.4 MMOL/L (3.5-5.1); SODIUM 145 MMOL/L (135-145); TOTAL CARBON DIOXIDE 26.6 MMOL/L (24-32); TOTAL PROTEIN 6.1 G/DL (6.4-8.2); eGFR > 90 ML/MIN
[2022-03-23] MEDS: metroNIDAZOLE-Flagyl 500mg/NS 100 ML IV SCH ×2 (08:52→16:13)
[2022-03-23] MEDS: ciprofloxacin lact 400MG/200ML 200 ML IV SCH ×2 (08:52→21:34)
[2022-03-23 10:00] VITALS: BP 148/82
--- NOTE | 2022-03-23 11:15 | NUR ---
TPN consult: See recommendations below, have discussed w/ clinical Pharmacist. PICC pending. Recommendations: 1) Once TPN, continuous TPN using 2:1 Clinimix-E 11/19 with goal rate of 65 mL/hr with additional 250 mL 20% intralipids to run at 20.83 mL/hr for 12 hours on Tuesdays and Fridays. To provide 1560 mL total volume/day, 78 g AA, 312 g dextrose (4.08 mg/kg/min), and average 1516 kcal/day 2) Once TPN, Prealbumin and TG q Monday/ 3) Once TPN, Daily scaled weights 4) Bowel care per physician Addendum: 03/23/22 at [address] Amended: Links added.
[2022-03-23] MEDS: NORMAL SALINE IV SCH (12:12)
[2022-03-23] MEDS: FAMOTIDINE IV SCH (12:12)
[2022-03-23] MEDS ORDERED: Dextrose 10%-water IV solution 1,000 ML IV PRN (14:50)
[2022-03-23] MEDS ORDERED: magnesium Cl slow-release 64mg tablet PO PRN (15:25)
[2022-03-23] MEDS ORDERED: magnesium 2GM in 50ml NS 50 ML IV PRN (15:25)
[2022-03-23] MEDS ORDERED: magnesium 4gm in 100ml NS 100 ML IV PRN (15:25)
[2022-03-23] MEDS ORDERED: POTASSIUM BICARB 20meq eff tab 20 MEQ TABLET.EFF PO PRN ×2 (15:25)
[2022-03-23] MEDS ORDERED: potassium CL 10mEq/100ml bag 100 ML IV PRN (15:25)
[2022-03-23] MEDS: ondansetron/PF 4mg/2ml inj IV PRN (16:14)
[2022-03-23 16:29] LABS: MAGNESIUM 1.7 MG/DL (1.5-2.4); POTASSIUM 3.4 MMOL/L (3.5-5.1)
[2022-03-23] MEDS ORDERED: MVI, adult No.4 with vit. K 10 ML in dextrose 5% water 500ml 500 ML IV SCH ×2 (16:30)
[2022-03-23] MEDS ORDERED: fat emulsion IV bag 250 ML IV SCH (16:30)
[2022-03-23] MEDS ORDERED: ZINC/COPPER/MANGANESE/SELENIUM 1 ML, chromic chloride inj. 10 MCG in AA 5%/CALCIUM/LYTE... IV SCH (16:30)
[2022-03-23 18:30] VITALS: BP 147/88
--- NOTE | 2022-03-23 18:30 | NUR ---
Problems reprioritized. Patient report given, questions answered & plan of care reviewed with CHRIS Castillo.
--- NOTE | 2022-03-23 19:00 | NUR ---
dilaudid size worker primed witnessed by charge account clerk beth,tubing stock to the size worker box.
[2022-03-23] MEDS: PCA WASTE DOCUMENTATION MC SCH (19:39)
[2022-03-23] MEDS: K and/or MAG REPLACEMENT MC SCH (20:00)
[2022-03-23] MEDS: insulin glargine (Lantus) pen - multi-dose SQ SCH (21:00)
[2022-03-23] MEDS: famotidine/PF 10 mg/ml inj IV SCH (21:36)
[2022-03-23] MEDS: clonazePAM 1mg tablet PO PRN (21:58)
[2022-03-23 22:00] VITALS: BP 146/79
--- NOTE | 2022-03-23 23:59 | NUR ---
Charting by Lucretia WILLETT reviewed by Marsha Ventura RN
[2022-03-24] MEDS: metroNIDAZOLE-Flagyl 500mg/NS 100 ML IV SCH ×2 (00:25→07:58)
[2022-03-24] MEDS: HYDROmorph/NS 0.2 mg/ml PCA 100 ML IV SCH ×4 (01:00→07:00)
[2022-03-24] MEDS: insulin regular, human U-100 3ml vial - multi-dose SQ SCH ×2 (02:16→08:33)
[2022-03-24] MEDS: ketorolac trometh. 30mg/ml inj. IV SCH ×2 (03:13→07:59)
[2022-03-24] MEDS: normal saline 1000ml 1,000 ML IV SCH ×2 (04:32→09:37)
[2022-03-24 05:28] VITALS: BP 132/80
[2022-03-24 06:36] LABS: ALANINE AMINOTRANSFERASE 31 U/L (12-78); ALBUMIN/GLOBULIN RATIO 0.9 (1.1-1.5); ALKALINE PHOSPHATASE 120 IU/L (46-116); ANION GAP 5 (8-16); ASPARTATE AMINO TRANSFERASE 23 U/L (10-37); BILIRUBIN,TOTAL 0.2 MG/DL (0.1-1.0); BLOOD UREA NITROGEN 3 MG/DL (7-18); BUN/CREATININE RATIO 4.6 (6.6-38.0); CALCIUM 8.2 MG/DL (8.5-10.1); CHLORIDE 103 MMOL/L (99-107); CREATININE 0.65 MG/DL (0.40-0.90); GLUCOSE 221 MG/DL (70-104); MAGNESIUM 1.7 MG/DL (1.5-2.4); PHOSPHORUS 3.5 MG/DL (2.3-4.5); POTASSIUM 3.6 MMOL/L (3.5-5.1); PREALBUMIN 13.8 MG/DL (19-36); SODIUM 138 MMOL/L (135-145); TOTAL PROTEIN 6.3 G/DL (6.4-8.2); TRIGLYCERIDES 80 MG/DL (20-135); eGFR > 90 ML/MIN
[2022-03-24] MEDS: famotidine/PF 10 mg/ml inj IV SCH (07:58)
[2022-03-24] MEDS: K and/or MAG REPLACEMENT MC SCH (08:00)
[2022-03-24] MEDS: ciprofloxacin lact 400MG/200ML 200 ML IV SCH (09:45)
[2022-03-24] MEDS ORDERED: oxyCODONE/APAP 10/325mg tablet PO PRN (09:50)
[2022-03-24] MEDS: PCA WASTE DOCUMENTATION MC SCH (10:14)
[2022-03-24] MEDS ORDERED: OXYC-150 PO (10:36)
[2022-03-24] MEDS ORDERED: PANT-47 PO (10:36)
[2022-03-24] MEDS ORDERED: ZINC/COPPER/MANGANESE/SELENIUM 0.5 ML, chromic chloride inj. 5 MCG in AA 5%/CALCIUM/LYT... IV SCH ×2 (11:36→17:00)
[2022-03-25] MEDS ORDERED: PANT-47 PO (22:36)
[2022-03-26] MEDS ORDERED: magnesium 2GM in 50ml NS 50 ML IV PRN (12:05)
[2022-03-26] MEDS ORDERED: potassium Cl 20 mEq SR tablet PO PRN ×2 (12:05)
[2022-03-26] MEDS ORDERED: magnesium Cl slow-release 64mg tablet PO PRN (12:05)
[2022-03-26] MEDS ORDERED: magnesium 4gm in 100ml NS 100 ML IV PRN (12:05)
[2022-03-26] MEDS ORDERED: Dextrose 10%-water IV solution 1,000 ML IV PRN (12:05)
[2022-03-26] MEDS ORDERED: potassium Cl 40MEQ/1/2NS 520ml 520 ML IV PRN ×2 (12:05)
[2022-03-26] MEDS ORDERED: ZINC/COPPER/MANGANESE/SELENIUM 1 ML, chromic chloride inj. 10 MCG in AA 5%/CALCIUM/LYTE... IV SCH (17:00)
[2022-03-26] MEDS ORDERED: K and/or MAG REPLACEMENT MC SCH (20:00)
[2022-03-29] MEDS ORDERED: MVI, adult No.4 with vit. K 10 ML in dextrose 5% water 500ml 500 ML IV SCH ×2 (08:00)
== END 2022-03-24 12:10 | disposition home or self-care (01) | DRG 230 ==
LOC: ER 15:07 → ED HOLD 21:35 → ORTHO 4S 23:05
PROVIDERS: ADMIT Family Medicine; ATTEND Internal Medicine
PROC: 0DQA0ZZ Repair Jejunum, Open Approach (ICD-10-PCS; principal; 2022-03-18)
PROC: BW211ZZ Computerized Tomography (CT Scan) of Abdomen and Pelvis using Low Osmolar Contrast (ICD-10-PCS; 2022-03-18)
PROC: 3E0T3BZ Introduction of Anesthetic Agent into Peripheral Nerves and Plexi, Percutaneous Approach (ICD-10-PCS; 2022-03-18)
PROC: 3E0T33Z Introduction of Anti-inflammatory into Peripheral Nerves and Plexi, Percutaneous Approach (ICD-10-PCS; 2022-03-18)
PROC: 02HV33Z Insertion of Infusion Device into Superior Vena Cava, Percutaneous Approach (ICD-10-PCS; 2022-03-23)
PROC: B548ZZA Ultrasonography of Superior Vena Cava, Guidance (ICD-10-PCS; 2022-03-23)
DX: K28.5 Chronic or unspecified gastrojejunal ulcer with perforation (principal); E46 Unspecified protein-calorie malnutrition; N17.9 Acute kidney failure, unspecified; K56.1 Intussusception; K65.9 Peritonitis, unspecified; E87.2 Acidosis; E11.9 Type 2 diabetes mellitus without complications; Z20.822 Contact with and (suspected) exposure to COVID-19; E83.52 Hypercalcemia; G43.909 Migraine, unspecified, not intractable, without status migrainosus; G89.29 Other chronic pain; R79.89 Other specified abnormal findings of blood chemistry; E87.6 Hypokalemia; K86.1 Other chronic pancreatitis; F17.210 Nicotine dependence, cigarettes, uncomplicated; F32.A Depression, unspecified; J45.909 Unspecified asthma, uncomplicated; K21.9 Gastro-esophageal reflux disease without esophagitis; Z56.0 Unemployment, unspecified; Z90.710 Acquired absence of both cervix and uterus; Z90.81 Acquired absence of spleen; Z68.1 Body mass index [BMI] 19.9 or less, adult; Z28.310 Unvaccinated for COVID-19; Z88.1 Allergy status to other antibiotic agents; Z90.49 Acquired absence of other specified parts of digestive tract; Z79.899 Other long term (current) drug therapy; Z79.4 Long term (current) use of insulin; Z71.6 Tobacco abuse counseling
CPT/HCPCS: 36415; 36569; 36600; 71045; 74177; 76942; 80053; 81001; 81025; 82009; 82803; 82948; 83036; 83605; 83690; 83735; 84100; 84132; 84134; 84145; 84478; 85008; 85018; 85025; 85610; 85730; 86677; 87040; 87081; 87088; 87635; 93005; 96361; 96374; 99285; A4353; A4618; A6258; A6449; A7000; C1751; C1758; C1894; C9290; C9803; G0378; J0131; J0694; J0744; J1100; J1170; J1815; J1885; J2175; J2250; J2270; J2274; J2405; J2704; J2710; J3010; J3490; J7030; J7040; J7050; J7060; J7120; Q9967

== ENCOUNTER 2022-04-22 07:59 | Inpatient (IN) | payer MEDICAID ==
[~2022-04-22] VITALS: Ht 167.6 cm; Wt 59.0 kg
[~2022-04-22 07:59] MED LIST changes: +AMYL1CAP57 PO; +BUPR2TAB11 SL; +CARB-101 PO; -CARB200T PO; -CLON1TAB12 PO; +INSU100I31 SQ; +INSU100V11 INJ; -METO10TA3 PO; -OMEP20CA16 PO; -OXYC-150 PO; +OXYC10TA47 PO; +PANT-47 PO
[2022-04-22] MEDS ORDERED: AMYLASE PO SCH (08:00)
[2022-04-22] MEDS ORDERED: PROTEASE PO SCH (08:00)
[2022-04-22] MEDS ORDERED: LIPASE PO SCH (08:00)
--- NOTE | 2022-04-22 09:45 | NUR ---
pt pick line has air in it, had charge nurse blayne weber double check. Tried to pull back with 3cc syringe, just air. Did not flush picc, called for picc line RN
[2022-04-22 09:46] LABS: CLARITY,URINE CLOUDY (Clear); COLOR,URINE YELLOW (Yellow); GLUCOSE, URINE NEGATIVE (Neg); KETONES,URINE 15 mg/dl (Neg); LEUKOCYTE ESTERASE ,URINE NEGATIVE (Neg); NITRITES, URINE NEGATIVE (Neg); OCCULT BLOOD,URINE TRACE-INTACT (Neg); PH,URINE 6.5 (4.8-8.0); PROTEIN,URINE NEGATIVE (Neg); UROBILINOGEN,URINE 0.2 E.U/dL (0.2-1.0)
[2022-04-22 09:48] LABS: URINE HCG NEGATIVE (NEG)
[2022-04-22 09:53] LABS: UA COLLECTION TYPE CLN CATCH MIDSTREAM
[2022-04-22 09:55] LABS: BACTERIA,URINE 1+ /HPF (Neg); MUCUS STRANDS NONE SEEN /LPF (Neg); RBC,URINE 0-2 /HPF (0-2); SQUAMOUS EPITHELIAL CELL,UR MODERATE /LPF (FEW)
[2022-04-22 09:56] LABS: TRANSITIONAL EPI CELLS,URINE FEW /HPF
[2022-04-22] MEDS ORDERED: proCHLORperazine 10 MG/2 ml inj IV ONE (10:25)
[2022-04-22] MEDS ORDERED: normal saline 1000ML IV soln IVB ONE (10:25)
[2022-04-22] MEDS: morphine 2 MG/ML inj. syringe IV PRN ×4 (10:55→15:55)
[2022-04-22 11:04] LABS: BASOPHILS # (AUTO) 0.1 X10'3 (0-0.2); EOSINOPHILS # (AUTO) 0.1 X10'3 (0-0.9); HEMOGLOBIN 11.4 g/dl (12.0-16.0); MONOCYTES # (AUTO) 0.9 X10'3 (0-0.9); MONOCYTES % (AUTO) 6.5 % (2-12)
[2022-04-22 11:06] LABS: BASOPHILS % (AUTO) 0.6 % (0-1); EOSINOPHILS % (AUTO) 0.8 % (0-6); HEMATOCRIT 32.6 % (35.0-45.0); LYMPHOCYTES # (AUTO) 1.4 X10'3 (1.1-4.8); LYMPHOCYTES % (AUTO) 9.6 % (21-51); MEAN CORPUSCULAR HEMOGLOBIN 33.5 PG (27.0-31.0); MEAN CORPUSCULAR HGB CONC 35.1 g/dL (33.0-36.5); MEAN CORPUSCULAR VOLUME 95.6 FL (78-98); MEAN PLATELET VOLUME 7.6 FL (7.4-10.4); NEUTROPHILS # (AUTO) 11.8 X10'3 (1.8-7.7); NEUTROPHILS % (AUTO) 82.5 % (42-75); PLATELET COUNT 606 X10'3 (140-440); RED BLOOD COUNT 3.41 X10'6 (4.20-5.60); RED CELL DISTRIBUTION WIDTH 13.6 % (11.5-14.5); WHITE BLOOD COUNT 14.4 X10'3 (4.5-11.0)
[2022-04-22 11:20] LABS: ALANINE AMINOTRANSFERASE 15 U/L (12-78); ALBUMIN 2.4 G/DL (3.4-5.0); ALBUMIN/GLOBULIN RATIO 0.6 (1.1-1.5); ALKALINE PHOSPHATASE 140 IU/L (46-116); ANION GAP 8 (8-16); ASPARTATE AMINO TRANSFERASE 15 U/L (10-37); BILIRUBIN,TOTAL 0.1 MG/DL (0.1-1.0); BLOOD UREA NITROGEN 7 MG/DL (7-18); BUN/CREATININE RATIO 9.5 (6.6-38.0); CALCIUM 8.9 MG/DL (8.5-10.1); CHLORIDE 95 MMOL/L (99-107); CREATININE 0.74 MG/DL (0.40-0.90); GLUCOSE 213 MG/DL (70-104); LIPASE < 50 U/L (73-393); SODIUM 133 MMOL/L (135-145); TOTAL CARBON DIOXIDE 29.6 MMOL/L (24-32); TOTAL PROTEIN 6.6 G/DL (6.4-8.2); eGFR 85 ML/MIN
[2022-04-22 11:21] LABS: POTASSIUM 3.6 MMOL/L (3.5-5.1)
--- NOTE | 2022-04-22 11:32 | NUR ---
picc line nurse said line is not in place. It will be replaced by them soon.
[2022-04-22] MEDS ORDERED: iohexol 300mg/ml 100ml inj. ONE (13:07)
--- NOTE | 2022-04-22 13:48 | NUR ---
back from picc line placement
[2022-04-22] MEDS ORDERED: acetaminophen 325mg tablet PO PRN (15:25)
[2022-04-22] MEDS ORDERED: potassium Cl 20 mEq SR tablet PO PRN (15:25)
[2022-04-22] MEDS ORDERED: ondansetron/PF 4mg/2ml inj IV PRN (15:25)
[2022-04-22] MEDS ORDERED: normal saline 1000ml 1,000 ML IV SCH (15:25)
[2022-04-22] MEDS ORDERED: magnesium hydroxide 30ml (MOM) UD suspension PO PRN (15:25)
[2022-04-22] MEDS ORDERED: magnesium 4gm in 100ml NS 100 ML IV PRN (15:25)
[2022-04-22] MEDS ORDERED: morphine 2 MG/ML inj. syringe IV PRN ×2 (15:25)
[2022-04-22] MEDS ORDERED: magnesium Cl slow-release 64mg tablet PO PRN (15:25)
[2022-04-22] MEDS ORDERED: mag hydrox/Alum hydrox/simeth 30ml oral suspension PO PRN (15:25)
[2022-04-22] MEDS ORDERED: potassium Cl 40MEQ/1/2NS 520ml 520 ML IV PRN (15:25)
[2022-04-22] MEDS ORDERED: HYDROmorphone inj. 0.5 MG/0.5 ML DISP.SYRIN IV PRN (15:50)
[2022-04-22] MEDS ORDERED: CLON1TAB95 PO (16:07)
[2022-04-22 16:13] LABS: PHOSPHORUS 4.3 MG/DL (2.3-4.5)
--- NOTE | 2022-04-22 17:30 | NUR ---
TPN Consult: Pt admit DX intractable vomiting, abdominal pain, non-functional PICC line, and hx non-compliance w/ meds/doctor's visit per EMR. 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 A1C 10.6% 03/27/22 admit though not appropriate for DM ed given TPN dependence. Pt s/p new PICC line placement this admit. RD d/w TPN recs; D10/NS to run at 50ml/hr until TPN able to be made tomorrow morning per MD. Will monitor for TPN initiation, tolerance, and adjustment needs as medically indicated. Rec: 1. Continuous TPN via PICC per MD using 2:1 Clinimix-E 5/20 at 65ml/hr goal rate w/ additional 250mL 20% ILE to run at 20.83mL/hr for 12 hours Q /Mon. In total; to provide 1560mL total volume/day, 78g AA, 312g dextrose (4.15mg/kg/min), and avg 1516 kcal/day 2. TG/PALB Q /; daily scaled wts 3. monitor for TPN tolerance and signs of refeeding if truly 2 weeks without PN POWER SYSTEM OPERATOR; wt hx remains stable 4. pancreatic enzymes once PO per physician discretion 5. routine bowel care per MD 6. once PO diet to advance and intake adequate; consider low-fat/carb controlled diet as medically indicated Addendum: 04/22/22 at [address] Amended: Links added.
[2022-04-22] MEDS: HYDROmorphone 1 mg/ml syringe IV PRN ×2 (17:31→21:49)
--- NOTE | 2022-04-22 19:35 | NUR ---
Sadie rowan in EDM - 04/22/22 at 1936 by MAYCOL ASSUMED CARE OF PATIENT AT 1830 AFTER RECIEVING REPORT. APPEARS TO BE RESTING QUIETLY WITHOUT DISTRESS AT THIS TIME.
--- NOTE | 2022-04-22 19:37 | NUR ---
ASSUMED CARE OF PATIENT AT 1830 AFTER RECIEVING REPORT. VERBLIZING PAIN 03/12 DILAUDID 1 MG GIVEN @ 1730. NOTIFIED DR. DAVEY PER REQUEST OF PATIENT FOR PAIN MEDS, NO NEW ORDERS GIVEN. WILL INFORM PATIENT
[2022-04-22] MEDS: K and/or MAG REPLACEMENT MC SCH (20:00)
[2022-04-22] MEDS: IOHEXOL 12MG/ML oral solution 500 ML BOTTLE PO SCH (21:00)
[2022-04-22] MEDS: heparin, porcine 5000 units/ml vial SQ SCH (22:04)
[2022-04-22] MEDS: pantoprazole 40MG/NS 100ML BAG 100 ML IV SCH (22:04)
[2022-04-22] MEDS: docusate sod 100mg capsule PO SCH (22:04)
[2022-04-23] MEDS: HYDROmorphone 1 mg/ml syringe IV PRN ×7 (02:58→23:30)
[2022-04-23 04:10] LABS: BASOPHILS # (AUTO) 0.1 X10'3 (0-0.2); BASOPHILS % (AUTO) 0.6 % (0-1); EOSINOPHILS # (AUTO) 0.2 X10'3 (0-0.9); EOSINOPHILS % (AUTO) 1.4 % (0-6); HEMATOCRIT 28.6 % (35.0-45.0); HEMOGLOBIN 9.8 g/dl (12.0-16.0); LYMPHOCYTES # (AUTO) 1.7 X10'3 (1.1-4.8); LYMPHOCYTES % (AUTO) 13.6 % (21-51); MEAN CORPUSCULAR HEMOGLOBIN 32.6 PG (27.0-31.0); MEAN CORPUSCULAR HGB CONC 34.2 g/dL (33.0-36.5); MEAN CORPUSCULAR VOLUME 95.4 FL (78-98); MEAN PLATELET VOLUME 6.9 FL (7.4-10.4); MONOCYTES # (AUTO) 0.7 X10'3 (0-0.9); MONOCYTES % (AUTO) 5.3 % (2-12); NEUTROPHILS # (AUTO) 10.1 X10'3 (1.8-7.7); NEUTROPHILS % (AUTO) 79.1 % (42-75); PLATELET COUNT 528 X10'3 (140-440); RED CELL DISTRIBUTION WIDTH 13.7 % (11.5-14.5); WHITE BLOOD COUNT 12.7 X10'3 (4.5-11.0)
[2022-04-23 04:25] LABS: ALANINE AMINOTRANSFERASE 11 U/L (12-78); ALBUMIN 1.8 G/DL (3.4-5.0); ALBUMIN/GLOBULIN RATIO 0.5 (1.1-1.5); ALKALINE PHOSPHATASE 114 IU/L (46-116); ANION GAP 8 (8-16); ASPARTATE AMINO TRANSFERASE 18 U/L (10-37); BILIRUBIN,TOTAL 0.2 MG/DL (0.1-1.0); BLOOD UREA NITROGEN 5 MG/DL (7-18); BUN/CREATININE RATIO 9.6 (6.6-38.0); CALCIUM 8.3 MG/DL (8.5-10.1); CHLORIDE 106 MMOL/L (99-107); CREATININE 0.52 MG/DL (0.40-0.90); GLUCOSE 124 MG/DL (70-104); MAGNESIUM 1.7 MG/DL (1.5-2.4); POTASSIUM 3.6 MMOL/L (3.5-5.1); SODIUM 139 MMOL/L (135-145); TOTAL CARBON DIOXIDE 25.3 MMOL/L (24-32); TOTAL PROTEIN 5.3 G/DL (6.4-8.2); eGFR > 90 ML/MIN
[2022-04-23] MEDS: sodium chloride inj. 154 MEQ in Dextrose 10%-water IV solution 961.5 ML IV SCH ×2 (05:47→13:21)
[2022-04-23] MEDS: pantoprazole 40MG/NS 100ML BAG 100 ML IV SCH ×2 (07:51→20:45)
[2022-04-23] MEDS: K and/or MAG REPLACEMENT MC SCH ×2 (08:00→20:00)
[2022-04-23] MEDS: IOHEXOL 12MG/ML oral solution 500 ML BOTTLE PO SCH ×2 (08:00→12:30)
[2022-04-23] MEDS: docusate sod 100mg capsule PO SCH ×2 (08:00→20:00)
[2022-04-23] MEDS: carBAMazepine Ext. Release 200 MG TAB.ER.12H PO SCH (08:28)
[2022-04-23] MEDS ORDERED: vancomycin/NS 1 GM ADD-VANTAGE 250 ML X 1 DOSE IV ONE (08:30)
[2022-04-23] MEDS: piperacillin/tazo 3.375gm/50ml 50 ML IV SCH ×2 (09:02→17:31)
[2022-04-23] MEDS: heparin, porcine 5000 units/ml vial SQ SCH ×2 (09:03→20:47)
[2022-04-23] MEDS ORDERED: LORazepam 0.5 MG tablet PO PRN (09:50)
[2022-04-23] MEDS ORDERED: LIPASE/PROTEASE/AMYLASE 10,500 units CAPSULE.DR PO SCH (09:57)
--- NOTE | 2022-04-23 10:26 | NUR ---
Pt stated that the Dilaudid isn't working and "I don't even know why I am here." It has been explained to her that she is here for intractable vomiting and hx of pancreatitis.
[2022-04-23] MEDS ORDERED: potassium Cl 40MEQ/1/2NS 520ml 520 ML IV PRN ×2 (10:50)
[2022-04-23] MEDS ORDERED: magnesium 2GM in 50ml NS 50 ML IV PRN (10:50)
[2022-04-23] MEDS ORDERED: magnesium Cl slow-release 64mg tablet PO PRN (10:50)
[2022-04-23] MEDS ORDERED: Dextrose 10%-water IV solution 1,000 ML IV PRN (10:50)
[2022-04-23] MEDS ORDERED: Neutra Phos packet PO PRN (10:50)
[2022-04-23] MEDS ORDERED: magnesium 4gm in 100ml NS 100 ML IV PRN (10:50)
[2022-04-23] MEDS ORDERED: sodium phosphate inj. 30 MMOL in dextrose 5%-water 250 ML IV PRN (10:50)
[2022-04-23] MEDS ORDERED: sodium phosphate inj. 15 MMOL in dextrose 5%-water 250 ML IV PRN (10:50)
[2022-04-23] MEDS ORDERED: potassium Cl 20 mEq SR tablet PO PRN ×2 (10:50)
[2022-04-23 12:08] LABS: ALANINE AMINOTRANSFERASE 13 U/L (12-78); ALBUMIN/GLOBULIN RATIO 0.5 (1.1-1.5); ALKALINE PHOSPHATASE 124 IU/L (46-116); ANION GAP 9 (8-16); ASPARTATE AMINO TRANSFERASE 11 U/L (10-37); BILIRUBIN,TOTAL 0.2 MG/DL (0.1-1.0); BLOOD UREA NITROGEN 6 MG/DL (7-18); BUN/CREATININE RATIO 10.3 (6.6-38.0); CALCIUM 8.6 MG/DL (8.5-10.1); CHLORIDE 104 MMOL/L (99-107); CREATININE 0.58 MG/DL (0.40-0.90); GLUCOSE 131 MG/DL (70-104); MAGNESIUM 1.8 MG/DL (1.5-2.4); PHOSPHORUS 3.2 MG/DL (2.3-4.5); POTASSIUM 3.8 MMOL/L (3.5-5.1); PREALBUMIN 11.3 MG/DL (19-36); SODIUM 139 MMOL/L (135-145); TOTAL CARBON DIOXIDE 26.4 MMOL/L (24-32); TOTAL PROTEIN 5.8 G/DL (6.4-8.2); TRIGLYCERIDES 113 MG/DL (20-135); eGFR > 90 ML/MIN
--- NOTE | 2022-04-23 12:27 | NUR ---
Report given to CHRIS Garrison on the Surgical floor.
--- NOTE | 2022-04-23 13:35 | NUR ---
Patient is on floor and requesting more pain meds even though they were recently given in ED. I know this patient from her past visit and this is a common request. I have paged Dr Lackey with regarding request for increase of pain meds and also she would like a clear liquid diet while on TPN, awaiting response. TPN will be hung when ready and likely NG tube for contrast.
[2022-04-23 14:00] VITALS: BP 137/69
[2022-04-23] MEDS ORDERED: HYDROmorphone inj. 0.5 MG/0.5 ML DISP.SYRIN IV PRN (15:10)
[2022-04-23] MEDS: ZINC/COPPER/MANGANESE/SELENIUM 0.5 ML, chromic chloride inj. 5 MCG in AA 5%/CALCIUM/LYT... IV SCH (17:34)
[2022-04-23] MEDS: normal saline 1000ml 1,000 ML IV SCH (17:34)
--- NOTE | 2022-04-23 17:35 | NUR ---
TPN started at 1730. In 12 hrs if pt tolerating increase to goal rate of 65 ml/hr. Meli Pratt and cheyanne PARIKH.
--- NOTE | 2022-04-23 18:35 | NUR ---
Received report from outgoing nurse. Reviewed POC and questions asked.
--- NOTE | 2022-04-23 19:16 | NUR ---
Report given to HARRY PEREZ. Pt just given dilaudid and no concerns at this time. Meli Laguerre RN reviewed care and charting.
[2022-04-23] MEDS ORDERED: K and/or MAG REPLACEMENT MC SCH (20:00)
[2022-04-23] MEDS: vancomycin/NS 1 GM ADD-VANTAGE 250 ML IV SCH (20:47)
[2022-04-23] MEDS: clonazePAM 1mg tablet PO PRN (20:50)
[2022-04-23] MEDS ORDERED: MESSAGE TO PHARMACY PO ONE (22:30)
[2022-04-23] MEDS ORDERED: dextrose 50%-water 50ml dispensing syringe IV PRN (22:30)
[2022-04-23] MEDS ORDERED: DEXTROSE 15 GM of carb/4 tabs (each vial/BOTTLE has 4 tablets) PO PRN ×2 (22:30)
[2022-04-23] MEDS ORDERED: glucagon, human recombinant 1mg kit SUBCUT PRN (22:30)
[2022-04-23] MEDS: insulin glargine (Lantus) pen - multi-dose SQ SCH (23:59)
[2022-04-24] MEDS ORDERED: iohexol 350 MG/ML 50ML vial IV SCH
--- NOTE | 2022-04-24 02:25 | NUR ---
Wrong dosage of oral contrast was given per order. Ordered by Pharmacist named DAGO. Notified and M[address]. Pt is not in distress. Explained pt about incident. Contrast was discontinued and labs done.
[2022-04-24] MEDS: piperacillin/tazo 3.375gm/50ml 50 ML IV SCH ×3 (02:27→16:00)
[2022-04-24] MEDS: insulin regular, human U-100 3ml vial - multi-dose SQ SCH ×4 (02:33→22:52)
[2022-04-24 02:43] LABS: ALANINE AMINOTRANSFERASE 11 U/L (12-78); ALBUMIN 1.8 G/DL (3.4-5.0); ALBUMIN/GLOBULIN RATIO 0.5 (1.1-1.5); ALKALINE PHOSPHATASE 114 IU/L (46-116); ANION GAP 9 (8-16); ASPARTATE AMINO TRANSFERASE 11 U/L (10-37); BILIRUBIN,TOTAL 0.2 MG/DL (0.1-1.0); BLOOD UREA NITROGEN 6 MG/DL (7-18); BUN/CREATININE RATIO 9.2 (6.6-38.0); CALCIUM 8.3 MG/DL (8.5-10.1); CHLORIDE 106 MMOL/L (99-107); CREATININE 0.65 MG/DL (0.40-0.90); GLUCOSE 268 MG/DL (70-104); MAGNESIUM 1.7 MG/DL (1.5-2.4); POTASSIUM 3.5 MMOL/L (3.5-5.1); SODIUM 139 MMOL/L (135-145); TOTAL CARBON DIOXIDE 24.4 MMOL/L (24-32); TOTAL PROTEIN 5.4 G/DL (6.4-8.2); eGFR > 90 ML/MIN
[2022-04-24 03:06] LABS: BASOPHILS # (AUTO) 0.1 X10'3 (0-0.2); BASOPHILS % (AUTO) 1.3 % (0-1); EOSINOPHILS # (AUTO) 0.2 X10'3 (0-0.9); EOSINOPHILS % (AUTO) 2.5 % (0-6); HEMATOCRIT 28.1 % (35.0-45.0); HEMOGLOBIN 9.7 g/dl (12.0-16.0); LYMPHOCYTES # (AUTO) 2.5 X10'3 (1.1-4.8); LYMPHOCYTES % (AUTO) 27.7 % (21-51); MEAN CORPUSCULAR HGB CONC 34.4 g/dL (33.0-36.5); MEAN CORPUSCULAR VOLUME 95.8 FL (78-98); MEAN PLATELET VOLUME 7.2 FL (7.4-10.4); MONOCYTES # (AUTO) 0.7 X10'3 (0-0.9); MONOCYTES % (AUTO) 7.9 % (2-12); NEUTROPHILS # (AUTO) 5.4 X10'3 (1.8-7.7); NEUTROPHILS % (AUTO) 60.6 % (42-75); PLATELET COUNT 531 X10'3 (140-440); RED BLOOD COUNT 2.93 X10'6 (4.20-5.60); RED CELL DISTRIBUTION WIDTH 13.6 % (11.5-14.5); WHITE BLOOD COUNT 8.9 X10'3 (4.5-11.0)
[2022-04-24] MEDS: HYDROmorphone 1 mg/ml syringe IV PRN ×9 (05:15→22:13)
--- NOTE | 2022-04-24 05:45 | NUR ---
No voiding during night. 440ml bladder scanned. Pt does not have urge to void at the moment. Will be followed up.
[2022-04-24 06:00] VITALS: BP 136/70
--- NOTE | 2022-04-24 06:21 | NUR ---
Report given to oncoming nurse. All questions were answered.
[2022-04-24] MEDS: normal saline 1000ml 1,000 ML IV SCH (07:41)
[2022-04-24] MEDS: carBAMazepine Ext. Release 200 MG TAB.ER.12H PO SCH (07:43)
[2022-04-24] MEDS: pantoprazole 40MG/NS 100ML BAG 100 ML IV SCH ×2 (07:44→19:37)
[2022-04-24] MEDS: K and/or MAG REPLACEMENT MC SCH ×2 (07:45→19:34)
[2022-04-24] MEDS: heparin, porcine 5000 units/ml vial SQ SCH ×2 (07:45→19:38)
[2022-04-24] MEDS: docusate sod 100mg capsule PO SCH ×2 (07:45→19:37)
[2022-04-24] MEDS: vancomycin/NS 1 GM ADD-VANTAGE 250 ML IV SCH ×2 (08:46→19:40)
[2022-04-24 10:00] VITALS: BP 118/71
[2022-04-24 11:18] LABS: ALBUMIN 1.8 G/DL (3.4-5.0); ANION GAP 9 (8-16); BLOOD UREA NITROGEN 7 MG/DL (7-18); BUN/CREATININE RATIO 9.9 (6.6-38.0); CALCIUM 8.3 MG/DL (8.5-10.1); CHLORIDE 108 MMOL/L (99-107); CREATININE 0.71 MG/DL (0.40-0.90); GLUCOSE 163 MG/DL (70-104); POTASSIUM 3.3 MMOL/L (3.5-5.1); SODIUM 143 MMOL/L (135-145); TOTAL CARBON DIOXIDE 26.5 MMOL/L (24-32); eGFR 89 ML/MIN
[2022-04-24] MEDS ORDERED: OXYcodone immediate-release 10MG tablet PO PRN (12:50)
[2022-04-24] MEDS ORDERED: BUPRENORPHINE HCL SL SCH (13:00)
[2022-04-24 15:30] LABS: ALBUMIN 1.8 G/DL (3.4-5.0); ANION GAP 7 (8-16); BLOOD UREA NITROGEN 6 MG/DL (7-18); BUN/CREATININE RATIO 10.5 (6.6-38.0); CALCIUM 7.9 MG/DL (8.5-10.1); CHLORIDE 106 MMOL/L (99-107); CREATININE 0.57 MG/DL (0.40-0.90); GLUCOSE 188 MG/DL (70-104); POTASSIUM 3.5 MMOL/L (3.5-5.1); SODIUM 138 MMOL/L (135-145); TOTAL CARBON DIOXIDE 25.1 MMOL/L (24-32); eGFR > 90 ML/MIN
[2022-04-24] MEDS: ZINC/COPPER/MANGANESE/SELENIUM 0.5 ML, chromic chloride inj. 5 MCG in AA 5%/CALCIUM/LYT... IV SCH (16:02)
--- NOTE | 2022-04-24 16:30 | NUR ---
At approximatly [address] Lackey rounded on patient and it was discussed that we would restart patient on home meds with Dilaudid as breakthrough q4h instead of q2h, Patient became verbally aggressive about how that would not work for her and she will go AMA if her dilaudid is not given every 2 hours. Patient encouraged to not go AMA so CT scan with oral contrast can be done. Patient again says she does not agree with not getting less dilaudid and instead asks to be moved up to 4 mg of dilaudid. Patient has been requesting pain meds at exact time they are due and has had no obvious episodes of nausea or vomiting which she was admitted for. Patient does say she ran out of home pain meds prior to refill because she "threw them up", prior to coming in. Patient at this time is still agitated and says , "if you change my pain meds, I will go AMA and go home and shoot myself, give me my AMA papers." Dr Lackey then told her that they will keep the meds the same for now until after the CT scan if she chooses to stay. Dr Lackey and I stepped out of room to discuss with capable student nursing personnel still in room. Patient while speaking to student RN says, since she gets to keep the current pain medication regimen she will stay. Dr Lackey has put her on a 1798, discussion of needing a sitter was discussed. CHRIS Crawford, nursing supervisor welding equipment repairer notified of situation and Yvette says since patient is not going home with the threat of a gun at this time she does not need sitter. notified that nursing supervisor welding equipment repairer says a sitter is not needed and he has put in a psyc eval through [facility] when they are available. It was reccomended by ER overflow nurses to go through our [facility] since patient was not necessariily needing to be transferred to a psyc facility by [facility]. Patient moved closer to nurses station per Dr Lackey where we can walk by her more often. Patient calmed down quickly after Dr Lackey left room and now is in and out of sleep at times, still asks for pain meds q2h. Will continue to monitor closely and monitor for potential need for sitter and escalation.
--- NOTE | 2022-04-24 17:00 | NUR ---
Patient walked to new room by aide and while walking capably to room says per the aide, " When I fall I will fucking camron you." Patient escorted to room by 2 aids safely with no signs of unsteadiness.
[2022-04-24 18:00] VITALS: BP 153/86
--- NOTE | 2022-04-24 18:56 | NUR ---
Report given to Moni PEREZ. Pt is resting in bed and eating dinner. Meli Laguerre Rn looked over care and charting.
[2022-04-24] MEDS ORDERED: VANCOMYCIN LEVEL IV ONE (19:30)
[2022-04-24] MEDS: clonazePAM 1mg tablet PO PRN (19:55)
[2022-04-24 20:27] LABS: ALBUMIN 1.9 G/DL (3.4-5.0); ANION GAP 6 (8-16); BLOOD UREA NITROGEN 5 MG/DL (7-18); BUN/CREATININE RATIO 7.7 (6.6-38.0); CALCIUM 8.2 MG/DL (8.5-10.1); CHLORIDE 105 MMOL/L (99-107); CREATININE 0.65 MG/DL (0.40-0.90); GLUCOSE 233 MG/DL (70-104); POTASSIUM 3.4 MMOL/L (3.5-5.1); SODIUM 137 MMOL/L (135-145); TOTAL CARBON DIOXIDE 26.3 MMOL/L (24-32); VANCOMYCIN,TROUGH 10.8 UG/ML (6.0-14.0); eGFR > 90 ML/MIN
[2022-04-24] MEDS ORDERED: buprenorphine/naloxone 2-0.5mg sublingual tablet SL SCH (21:00)
[2022-04-24] MEDS ORDERED: buprenorphine/naloxone 8MG-2MG SUBlingual film SL SCH (21:00)
[2022-04-24 22:00] VITALS: BP 141/77
[2022-04-25] MEDS: potassium Cl 20 mEq SR tablet PO PRN ×2 (00:21→04:48)
[2022-04-25] MEDS: piperacillin/tazo 3.375gm/50ml 50 ML IV SCH ×3 (00:23→15:41)
[2022-04-25] MEDS: HYDROmorphone 1 mg/ml syringe IV PRN ×11 (00:23→22:09)
[2022-04-25] MEDS: dextrose 50%-water 50ml dispensing syringe IV PRN ×2 (02:23→07:39)
[2022-04-25] MEDS: insulin regular, human U-100 3ml vial - multi-dose SQ SCH ×3 (02:48→20:20)
[2022-04-25 06:08] LABS: BASOPHILS # (AUTO) 0.2 X10'3 (0-0.2); EOSINOPHILS # (AUTO) 0.5 X10'3 (0-0.9); HEMOGLOBIN 10.4 g/dl (12.0-16.0); MONOCYTES # (AUTO) 0.9 X10'3 (0-0.9); WHITE BLOOD COUNT 10.9 X10'3 (4.5-11.0)
[2022-04-25 06:11] LABS: BASOPHILS % (AUTO) 1.4 % (0-1); EOSINOPHILS % (AUTO) 4.6 % (0-6); HEMATOCRIT 29.4 % (35.0-45.0); LYMPHOCYTES % (AUTO) 27.9 % (21-51); MEAN CORPUSCULAR HEMOGLOBIN 33.4 PG (27.0-31.0); MEAN CORPUSCULAR HGB CONC 35.4 g/dL (33.0-36.5); MEAN CORPUSCULAR VOLUME 94.4 FL (78-98); MEAN PLATELET VOLUME 7.1 FL (7.4-10.4); MONOCYTES % (AUTO) 8.4 % (2-12); NEUTROPHILS # (AUTO) 6.3 X10'3 (1.8-7.7); NEUTROPHILS % (AUTO) 57.7 % (42-75); PLATELET COUNT 597 X10'3 (140-440); RED BLOOD COUNT 3.12 X10'6 (4.20-5.60); RED CELL DISTRIBUTION WIDTH 13.6 % (11.5-14.5)
[2022-04-25 06:19] LABS: ALANINE AMINOTRANSFERASE 13 U/L (12-78); ALBUMIN 2.1 G/DL (3.4-5.0); ALBUMIN/GLOBULIN RATIO 0.5 (1.1-1.5); ALKALINE PHOSPHATASE 120 IU/L (46-116); ANION GAP 7 (8-16); ASPARTATE AMINO TRANSFERASE 14 U/L (10-37); BILIRUBIN,TOTAL 0.2 MG/DL (0.1-1.0); BLOOD UREA NITROGEN 5 MG/DL (7-18); BUN/CREATININE RATIO 8.9 (6.6-38.0); CALCIUM 8.7 MG/DL (8.5-10.1); CHLORIDE 107 MMOL/L (99-107); CREATININE 0.56 MG/DL (0.40-0.90); MAGNESIUM 1.8 MG/DL (1.5-2.4); PHOSPHORUS 3.5 MG/DL (2.3-4.5); POTASSIUM 3.5 MMOL/L (3.5-5.1); PREALBUMIN 14.2 MG/DL (19-36); SODIUM 141 MMOL/L (135-145); TOTAL CARBON DIOXIDE 27.5 MMOL/L (24-32); TOTAL PROTEIN 6.1 G/DL (6.4-8.2); TRIGLYCERIDES 73 MG/DL (20-135); eGFR > 90 ML/MIN
--- NOTE | 2022-04-25 06:20 | NUR ---
Report given to Tash PEREZ.
[2022-04-25 06:39] LABS: GLUCOSE 20 MG/DL (70-104)
[2022-04-25 07:00] VITALS: BP 127/71
[2022-04-25] MEDS ORDERED: diatr meglu/diatrizoate 30ml oral sol.-(3 dose) bottle PO ONE (07:00)
[2022-04-25] MEDS: pantoprazole 40MG/NS 100ML BAG 100 ML IV SCH ×2 (07:14→20:08)
[2022-04-25] MEDS: ZINC/COPPER/MANGANESE/SELENIUM 0.5 ML, chromic chloride inj. 5 MCG in AA 5%/CALCIUM/LYT... IV SCH ×2 (07:17→23:15)
[2022-04-25] MEDS: vancomycin/NS 1 GM ADD-VANTAGE 250 ML IV SCH (07:20)
[2022-04-25] MEDS: docusate sod 100mg capsule PO SCH ×2 (07:21→20:02)
[2022-04-25] MEDS: K and/or MAG REPLACEMENT MC SCH ×2 (07:21→20:00)
[2022-04-25] MEDS: carBAMazepine Ext. Release 200 MG TAB.ER.12H PO SCH (07:21)
[2022-04-25] MEDS: FLUoxetine 10mg capsule PO SCH (07:22)
[2022-04-25] MEDS: heparin, porcine 5000 units/ml vial SQ SCH ×2 (07:22→20:03)
--- NOTE | 2022-04-25 09:48 | NUR ---
Reassessment; Pt continues to receive TPN at goal and tolerating. Pt also on clear liquid diet though not really consuming much, which is typical for her. LBM 04/20. No change to recommendations, will continue to Rec: 1. Continuous TPN via PICC per MD using 2:1 Clinimix-E 11/19 at 65ml/hr goal rate w/ additional 250mL 20% ILE to run at 20.83mL/hr for 12 hours Q /Mon. In total; to provide 1560mL total volume/day, 78g AA, 312g dextrose (4.15mg/kg/min), and avg 1516 kcal/day 2. TG/PALB Q /; daily scaled wts 3. monitor for TPN tolerance and signs of refeeding if truly 2 weeks without PN COOK VACUUM KETTLE; wt hx remains stable 4. pancreatic enzymes once PO per physician discretion 5. routine bowel care per MD 6. once PO diet to advance and intake adequate; consider low-fat/carb controlled diet as medically indicated Addendum: 04/25/22 at [address] Amended: Links added.
--- NOTE | 2022-04-25 10:54 | NUR ---
PAGER ID: [phone] MESSAGE: [phone] Marsha LUCIANO: SPECIALTY PERSON IS REQUESTING A KUB BEFORE FOING HER CT SCAN. THANK YOU, NANCY [phone]
[2022-04-25] MEDS ORDERED: Dextrose 10%-water IV solution 1,000 ML IV PRN (13:05)
--- NOTE | 2022-04-25 14:22 | NUR ---
PAGER ID: [phone] MESSAGE: [phone] Idris, S: CT has resulted patient requesting NG to be removed or shes going to pull it and leave AMA. she is also asking for more pain medication. thank you, clay [phone]
[2022-04-25 14:34] VITALS: BP 129/78
[2022-04-25 18:00] VITALS: BP 136/80
--- NOTE | 2022-04-25 18:18 | NUR ---
Problems reprioritized. Patient report given, questions answered & plan of care reviewed with CHRIS Carlin.
[2022-04-25] MEDS: clonazePAM 1mg tablet PO PRN (20:02)
[2022-04-25] MEDS: VANCOmycin 1250MG/NS 250ml Bag 250 ML IV SCH (20:08)
[2022-04-25] MEDS: insulin glargine (Lantus) pen - multi-dose SQ SCH (20:19)
[2022-04-25 22:00] VITALS: BP 133/78
--- NOTE | 2022-04-25 22:25 | NUR ---
Notified MD Cruz with concern that patient has some swelling to left elbow and forearm. No new orders at this time. Will continue to monitor.
[2022-04-26] VITALS (8 sets, daily range): BP systolic 103–134; BP diastolic 46–80
[2022-04-26] MEDS: HYDROmorphone 1 mg/ml syringe IV PRN ×11 (00:14→22:41)
[2022-04-26] MEDS: piperacillin/tazo 3.375gm/50ml 50 ML IV SCH ×3 (00:14→16:08)
[2022-04-26] MEDS: normal saline 1000ml 1,000 ML IV SCH (00:19)
[2022-04-26] MEDS: insulin regular, human U-100 3ml vial - multi-dose SQ SCH ×3 (02:20→20:31)
[2022-04-26 06:13] LABS: BASOPHILS # (AUTO) 0.1 X10'3 (0-0.2); BASOPHILS % (AUTO) 0.9 % (0-1); EOSINOPHILS # (AUTO) 0.6 X10'3 (0-0.9); EOSINOPHILS % (AUTO) 6.1 % (0-6); HEMATOCRIT 28.7 % (35.0-45.0); HEMOGLOBIN 9.6 g/dl (12.0-16.0); LYMPHOCYTES # (AUTO) 1.9 X10'3 (1.1-4.8); LYMPHOCYTES % (AUTO) 19.9 % (21-51); MEAN CORPUSCULAR HEMOGLOBIN 32.1 PG (27.0-31.0); MEAN CORPUSCULAR HGB CONC 33.4 g/dL (33.0-36.5); MEAN CORPUSCULAR VOLUME 95.9 FL (78-98); MEAN PLATELET VOLUME 7.3 FL (7.4-10.4); MONOCYTES # (AUTO) 0.8 X10'3 (0-0.9); MONOCYTES % (AUTO) 8.5 % (2-12); NEUTROPHILS % (AUTO) 64.6 % (42-75); PLATELET COUNT 550 X10'3 (140-440); RED BLOOD COUNT 2.99 X10'6 (4.20-5.60); RED CELL DISTRIBUTION WIDTH 13.7 % (11.5-14.5); WHITE BLOOD COUNT 9.3 X10'3 (4.5-11.0)
[2022-04-26 06:27] LABS: ALANINE AMINOTRANSFERASE 16 U/L (12-78); ALBUMIN 1.9 G/DL (3.4-5.0); ALBUMIN/GLOBULIN RATIO 0.5 (1.1-1.5); ALKALINE PHOSPHATASE 116 IU/L (46-116); ANION GAP 5 (8-16); ASPARTATE AMINO TRANSFERASE 17 U/L (10-37); BILIRUBIN,TOTAL 0.1 MG/DL (0.1-1.0); BLOOD UREA NITROGEN 5 MG/DL (7-18); BUN/CREATININE RATIO 8.8 (6.6-38.0); CALCIUM 8.6 MG/DL (8.5-10.1); CHLORIDE 106 MMOL/L (99-107); CREATININE 0.57 MG/DL (0.40-0.90); MAGNESIUM 1.6 MG/DL (1.5-2.4); PHOSPHORUS 3.9 MG/DL (2.3-4.5); POTASSIUM 3.5 MMOL/L (3.5-5.1); SODIUM 141 MMOL/L (135-145); TOTAL CARBON DIOXIDE 29.6 MMOL/L (24-32); TOTAL PROTEIN 5.5 G/DL (6.4-8.2); eGFR > 90 ML/MIN
[2022-04-26 06:47] LABS: GLUCOSE 40 MG/DL (70-104)
--- NOTE | 2022-04-26 06:59 | NUR ---
Received critical lab value call stating patient's BG was 40. Went to assess patient and she is alert and oriented and talking. Rechecked patient's BG and it is 94. Will continue to monitor.
[2022-04-26] MEDS: FLUoxetine 10mg capsule PO SCH (07:36)
[2022-04-26] MEDS: pantoprazole 40MG/NS 100ML BAG 100 ML IV SCH ×2 (07:36→20:17)
[2022-04-26] MEDS: docusate sod 100mg capsule PO SCH ×2 (07:37→20:18)
[2022-04-26] MEDS: carBAMazepine Ext. Release 200 MG TAB.ER.12H PO SCH ×2 (07:37→20:18)
[2022-04-26] MEDS: MVI, adult No.4 with vit. K 10 ML in dextrose 5% water 500ml 500 ML IV SCH ×4 (07:41→09:58)
[2022-04-26] MEDS: heparin, porcine 5000 units/ml vial SQ SCH ×2 (08:00→20:17)
[2022-04-26] MEDS: K and/or MAG REPLACEMENT MC SCH ×2 (08:00→20:00)
[2022-04-26] MEDS: VANCOmycin 1250MG/NS 250ml Bag 250 ML IV SCH (08:18)
[2022-04-26] MEDS ORDERED: fentaNYL/PF 50MCG/1 ML 2ML syringe ONE (11:22)
[2022-04-26] MEDS ORDERED: LIDOcaine Viscous 15ml cup ONE (11:22)
[2022-04-26] MEDS ORDERED: MIDAZolam 1 MG/ML 5ML VIAL ONE (11:22)
--- NOTE | 2022-04-26 11:36 | NUR ---
patient down to GI
--- NOTE | 2022-04-26 12:59 | NUR ---
Patient back to room 347A.
[2022-04-26] MEDS: ZINC/COPPER/MANGANESE/SELENIUM 0.5 ML, chromic chloride inj. 5 MCG in AA 5%/CALCIUM/LYT... IV SCH (14:37)
[2022-04-26] MEDS ORDERED: LORazepam 0.5 MG tablet PO PRN (15:45)
[2022-04-26] MEDS ORDERED: sodium bicarbonate (8.4%) inj. 150 ML in dextrose 5%-water 1,000 ML IV ONE (15:45)
[2022-04-26] MEDS ORDERED: diphenhydrAMINE 25mg capsule PO PRN (15:45)
--- NOTE | 2022-04-26 18:24 | NUR ---
Problems reprioritized. Patient report given, questions answered & plan of care reviewed with CHRIS Carlin.
[2022-04-26] MEDS: clonazePAM 1mg tablet PO PRN (20:18)
[2022-04-26] MEDS: insulin glargine (Lantus) pen - multi-dose SQ SCH (20:32)
[2022-04-27] MEDS: HYDROmorphone 1 mg/ml syringe IV PRN ×7 (01:09→14:28)
[2022-04-27] MEDS: insulin regular, human U-100 3ml vial - multi-dose SQ SCH ×3 (02:18→15:11)
[2022-04-27] MEDS: ZINC/COPPER/MANGANESE/SELENIUM 0.5 ML, chromic chloride inj. 5 MCG in AA 5%/CALCIUM/LYT... IV SCH (06:05)
--- NOTE | 2022-04-27 06:28 | NUR ---
Report given to Ninfa PEREZ.
--- NOTE | 2022-04-27 06:30 | NUR ---
Patient in room SHAZIA 347. I have received report from CHRIS TELLO and had the opportunity to ask questions and assume patient care.
[2022-04-27 06:53] LABS: BASOPHILS # (AUTO) 0.1 X10'3 (0-0.2); BASOPHILS % (AUTO) 1.3 % (0-1); EOSINOPHILS # (AUTO) 0.8 X10'3 (0-0.9); EOSINOPHILS % (AUTO) 7.9 % (0-6); HEMATOCRIT 27.6 % (35.0-45.0); HEMOGLOBIN 9.3 g/dl (12.0-16.0); LYMPHOCYTES # (AUTO) 2.4 X10'3 (1.1-4.8); LYMPHOCYTES % (AUTO) 24.8 % (21-51); MEAN CORPUSCULAR HEMOGLOBIN 32.2 PG (27.0-31.0); MEAN CORPUSCULAR HGB CONC 33.7 g/dL (33.0-36.5); MEAN CORPUSCULAR VOLUME 95.4 FL (78-98); MEAN PLATELET VOLUME 7.6 FL (7.4-10.4); MONOCYTES # (AUTO) 0.9 X10'3 (0-0.9); MONOCYTES % (AUTO) 9.7 % (2-12); NEUTROPHILS # (AUTO) 5.5 X10'3 (1.8-7.7); NEUTROPHILS % (AUTO) 56.3 % (42-75); PLATELET COUNT 576 X10'3 (140-440); RED BLOOD COUNT 2.89 X10'6 (4.20-5.60); WHITE BLOOD COUNT 9.8 X10'3 (4.5-11.0)
[2022-04-27 07:10] VITALS: BP 94/53
[2022-04-27 07:15] LABS: ALANINE AMINOTRANSFERASE 17 U/L (12-78); ALBUMIN 2.1 G/DL (3.4-5.0); ALBUMIN/GLOBULIN RATIO 0.5 (1.1-1.5); ALKALINE PHOSPHATASE 133 IU/L (46-116); ANION GAP 7 (8-16); ASPARTATE AMINO TRANSFERASE 23 U/L (10-37); BILIRUBIN,TOTAL 0.1 MG/DL (0.1-1.0); BLOOD UREA NITROGEN 4 MG/DL (7-18); BUN/CREATININE RATIO 6.2 (6.6-38.0); CALCIUM 8.7 MG/DL (8.5-10.1); CHLORIDE 102 MMOL/L (99-107); CREATININE 0.65 MG/DL (0.40-0.90); GLUCOSE 85 MG/DL (70-104); POTASSIUM 3.8 MMOL/L (3.5-5.1); SODIUM 138 MMOL/L (135-145); TOTAL CARBON DIOXIDE 28.6 MMOL/L (24-32); eGFR > 90 ML/MIN
[2022-04-27] MEDS: docusate sod 100mg capsule PO SCH (07:25)
[2022-04-27] MEDS: FLUoxetine 10mg capsule PO SCH (07:25)
[2022-04-27] MEDS: pantoprazole 40MG/NS 100ML BAG 100 ML IV SCH (07:25)
[2022-04-27] MEDS: carBAMazepine Ext. Release 200 MG TAB.ER.12H PO SCH (07:26)
[2022-04-27] MEDS: heparin, porcine 5000 units/ml vial SQ SCH (07:27)
[2022-04-27] MEDS ORDERED: VANCOMYCIN LEVEL IV ONE (07:30)
[2022-04-27 07:48] LABS: OCCULT BLOOD STOOL POSITIVE (Neg)
[2022-04-27] MEDS: K and/or MAG REPLACEMENT MC SCH (08:00)
[2022-04-27 12:00] VITALS: BP 109/32
--- NOTE | 2022-04-27 13:14 | NUR ---
PAGER ID: [phone] MESSAGE: [phone]- Svetlana Steinberg- positive occult stool from sample sent this AM. Thank you- Ninfa [phone]
--- NOTE | 2022-04-27 16:02 | NUR ---
PAGER ID: [phone] MESSAGE: [id number]- Octavia Steinberg- reported by process environmental technician that patient does have a right proximal subclavian DVT and states report will be in shortly.- Ninfa [phone]
--- NOTE | 2022-04-27 16:15 | NUR ---
PAGER ID: [phone] MESSAGE: [id number]- Svetlana Steinberg- asking if she can be dc. states she is not going to stay another day. - david [phone]
--- NOTE | 2022-04-27 16:30 | NUR ---
Patient wanting to leave AMA and stated she would not stay "my is here and waiting for me." Educated patient that her vascular ultrasound was positive for DVT and need for anticoagulant. Patient states, "well, I can just get that from my primary doctor. I'm not staying." Dr. Walden notified. Dr. Walden stated he will call patient's primary and will escript Eliquis. Patient impatient and did not want to wait for Dr. Walden and wanted to leave AM. AMA signed. Patient PICC was flushed and capped. Patient left with spouse with all personal belongings.
[2022-04-27] MEDS ORDERED: APIX5TAB3 PO (16:33)
[2022-04-27] MEDS ORDERED: PANT-47 PO (16:33)
[2022-04-27] MEDS ORDERED: CARB-101 PO ×2 (16:42)
== END 2022-04-27 16:45 | disposition left against medical advice (07) | DRG 241 ==
LOC: ER 07:59 → ED HOLD 15:26 → EDBEDREQ 20:10 → SUR 3N 04-23 12:51
PROVIDERS: ADMIT Family Medicine; ATTEND Family Medicine
PROC: BW211ZZ Computerized Tomography (CT Scan) of Abdomen and Pelvis using Low Osmolar Contrast (ICD-10-PCS; principal; 2022-04-22)
PROC: 05HY33Z Insertion of Infusion Device into Upper Vein, Percutaneous Approach (ICD-10-PCS; 2022-04-22)
DX: K26.9 Duodenal ulcer, unspecified as acute or chronic, without hemorrhage or perforation (principal); E43 Unspecified severe protein-calorie malnutrition; R45.851 Suicidal ideations; E87.1 Hypo-osmolality and hyponatremia; D72.829 Elevated white blood cell count, unspecified; E11.9 Type 2 diabetes mellitus without complications; F32.A Depression, unspecified; F11.20 Opioid dependence, uncomplicated; K20.90 Esophagitis, unspecified without bleeding; K29.70 Gastritis, unspecified, without bleeding; Z53.29 Procedure and treatment not carried out because of patient's decision for other reasons; Z68.21 Body mass index [BMI] 21.0-21.9, adult; F41.9 Anxiety disorder, unspecified; G40.909 Epilepsy, unspecified, not intractable, without status epilepticus; G89.29 Other chronic pain; J45.909 Unspecified asthma, uncomplicated; F41.1 Generalized anxiety disorder; K86.1 Other chronic pancreatitis; Z79.01 Long term (current) use of anticoagulants; Z79.899 Other long term (current) drug therapy; Z79.4 Long term (current) use of insulin; Z90.410 Acquired total absence of pancreas; Z90.710 Acquired absence of both cervix and uterus; Z90.81 Acquired absence of spleen; Z91.199 Patient's noncompliance with other medical treatment and regimen due to unspecified reason; Z90.49 Acquired absence of other specified parts of digestive tract; Z88.8 Allergy status to other drugs, medicaments and biological substances
CPT/HCPCS: 36415; 36569; 43239; 71045; 74018; 74176; 74177; 76942; 80048; 80053; 80156; 80202; 81001; 81025; 82272; 82941; 82948; 83605; 83690; 83735; 84100; 84134; 84145; 84478; 85025; 87040; 87081; 87088; 93970; 96361; 96374; 99152; 99285; A4615; A4620; A6402; C1751; C9113; G0378; J0780; J1170; J1644; J1815; J2250; J2270; J2405; J2543; J3010; J3370; J3490; J7030; J7060; Q9963; Q9967

== ENCOUNTER 2022-06-21 11:03 | Day surgery (SDC) | payer MEDICAID ==
[~2022-06-21] VITALS: Ht 167.6 cm; Wt 55.6 kg
[~2022-06-21 11:03] MED LIST changes: +APIX5TAB3 PO; -CARB-101 PO; +CLIN150C8 PO; +CLON1TAB95 PO
[2022-06-21] MEDS ORDERED: normal saline 1000ml 1,000 ML IV PRN (11:30)
[2022-06-21] MEDS ORDERED: dextrose 50%-water 50ml dispensing syringe IV ONE (11:37)
--- NOTE | 2022-06-21 11:40 | NUR ---
POC BG via PICC draw resulted as 33. Rechecked BG with Fingerstick POC and results 24. Pushed D50 IV via PICC line. Will recheck BG. VSS, pt states she feels a little low but ok.
[2022-06-21] MEDS ORDERED: DIPH25CA83 (11:41)
[2022-06-21] MEDS ORDERED: PANT40TA54 PO (11:41)
[2022-06-21] MEDS ORDERED: IBUP-1986 PO (11:43)
[2022-06-21] MEDS ORDERED: MULT-271 (11:43)
[2022-06-21] MEDS ORDERED: APIX5TAB3 PO (11:45)
[2022-06-21] MEDS ORDERED: NALO4SPR BOTHNARES (11:45)
[2022-06-21] MEDS ORDERED: CARB200T PO (11:46)
[2022-06-21] MEDS ORDERED: SUMA50TA PO (11:46)
[2022-06-21 11:49] VITALS: BP 114/91
[2022-06-21 11:51] LABS: BASOPHILS # (AUTO) 0.2 X10'3 (0-0.2); BASOPHILS % (AUTO) 1.6 % (0-1); EOSINOPHILS # (AUTO) 0.4 X10'3 (0-0.9); EOSINOPHILS % (AUTO) 3.1 % (0-6); HEMATOCRIT 32.2 % (35.0-45.0); HEMOGLOBIN 10.4 g/dl (12.0-16.0); LYMPHOCYTES % (AUTO) 26.5 % (21-51); MEAN CORPUSCULAR HEMOGLOBIN 30.2 PG (27.0-31.0); MEAN CORPUSCULAR HGB CONC 32.5 g/dL (33.0-36.5); MEAN PLATELET VOLUME 6.8 FL (7.4-10.4); MONOCYTES # (AUTO) 1.2 X10'3 (0-0.9); MONOCYTES % (AUTO) 10.6 % (2-12); NEUTROPHILS # (AUTO) 6.7 X10'3 (1.8-7.7); NEUTROPHILS % (AUTO) 58.2 % (42-75); PLATELET COUNT 478 X10'3 (140-440); RED BLOOD COUNT 3.46 X10'6 (4.20-5.60); RED CELL DISTRIBUTION WIDTH 16.2 % (11.5-14.5); WHITE BLOOD COUNT 11.4 X10'3 (4.5-11.0)
--- NOTE | 2022-06-21 11:52 | NUR ---
Notified Dr. Tiwair of critical BG results. Recheck 141 after D50 pushed. ORders for hypoglycemic protocol.
[2022-06-21] MEDS ORDERED: glucagon, human recombinant 1mg kit SUBCUT PRN (12:15)
[2022-06-21] MEDS ORDERED: dextrose 50%-water 50ml dispensing syringe IV PRN ×2 (12:15)
[2022-06-21] MEDS ORDERED: DEXTROSE 15 GM of carb/4 tabs (each vial/BOTTLE has 4 tablets) PO PRN ×2 (12:15)
[2022-06-21] MEDS ORDERED: LIDOcaine 1% 30ml preserv. free vial ONE (12:29)
[2022-06-21] MEDS ORDERED: FENTANYL CITRATE/PF 50 MCG/1 ML VIAL ONE (12:29)
[2022-06-21] MEDS ORDERED: midazolam 1 mg/ML 2ml injection ONE (12:29)
[2022-06-21 13:40] VITALS: BP 135/84
--- NOTE | 2022-06-21 13:50 | NUR ---
BG 76, did a recheck and BG 70. Pushed IV D50 25ml per protocol since patient does not want to eat anything yet. Pt just wants apple juice but refuses food.
[2022-06-21 13:55] VITALS: BP 123/56
[2022-06-21 14:10] VITALS: BP 131/70
[2022-06-21 14:25] VITALS: BP 116/75
== END 2022-06-21 14:30 | disposition home or self-care (01) ==
LOC: SSTAY O 11:03
PROVIDERS: ATTEND Radiology Vascular & Interventional Radiology
DX: I82.409 Acute embolism and thrombosis of unspecified deep veins of unspecified lower extremity (principal); K86.81 Exocrine pancreatic insufficiency; Z88.6 Allergy status to analgesic agent; Z88.8 Allergy status to other drugs, medicaments and biological substances; Z79.899 Other long term (current) drug therapy; Z98.890 Other specified postprocedural states
CPT/HCPCS: 36415; 36558; 76937; 77001; 82948; 85025; C1751; C1894; J3010; J3490; J7030; A4620; A6258; A9270; J2250

== ENCOUNTER 2022-11-13 07:45 | Inpatient (IN) | payer MEDICAID ==
[~2022-11-13] VITALS: Ht 167.6 cm; Wt 51.8 kg
[~2022-11-13 07:45] MED LIST changes: -AMYL1CAP56 PO; +CARB200T PO; -CLIN150C8 PO; -CLON1TAB95 PO; +DIPH25CA83; +IBUP-1986 PO; -INSU100I45 SQ; -INSU100V11 INJ; +INSU100V11 SQ; +MULT-271; +NALO4SPR BOTHNARES; -PANT-47 PO; +PANT40TA54 PO; +SUMA50TA PO
[2022-11-13] MEDS ORDERED: ondansetron/PF 4mg/2ml inj IV ONE (08:00)
[2022-11-13] MEDS ORDERED: metoclopramide 5 mg/ml inj IV ONE (08:00)
[2022-11-13] MEDS ORDERED: normal saline 1000ML IV soln IVB ONE (08:00)
[2022-11-13] MEDS ORDERED: HYDROmorphone 1 mg/ml syringe IV ONE ×2 (08:15→12:45)
[2022-11-13 08:49] LABS: EOSINOPHILS % (AUTO) 0 % (0-6); LYMPHOCYTES # (AUTO) 0.7 X10'3 (1.1-4.8); MONOCYTES # (AUTO) 1.8 X10'3 (0-0.9); NEUTROPHILS # (AUTO) 12.3 X10'3 (1.8-7.7); RED BLOOD COUNT 5.08 X10'6 (4.20-5.60); WHITE BLOOD COUNT 14.9 X10'3 (4.5-11.0)
[2022-11-13 08:50] LABS: ALANINE AMINOTRANSFERASE 31 U/L (12-78); ALBUMIN 4.8 G/DL (3.4-5.0); ALBUMIN/GLOBULIN RATIO 1.2 (1.1-1.5); ALKALINE PHOSPHATASE 204 IU/L (46-116); ANION GAP 18 (8-16); ASPARTATE AMINO TRANSFERASE 23 U/L (10-37); BILIRUBIN,TOTAL 0.9 MG/DL (0.1-1.0); BLOOD UREA NITROGEN 28 MG/DL (7-18); CALCIUM 10.1 MG/DL (8.5-10.1); CHLORIDE 76 MMOL/L (99-107); LIPASE < 50 U/L (73-393); POTASSIUM 3.6 MMOL/L (3.5-5.1); SODIUM 124 MMOL/L (135-145); TOTAL CARBON DIOXIDE 29.7 MMOL/L (24-32); TOTAL PROTEIN 8.8 G/DL (6.4-8.2); eGFR 27 ML/MIN
[2022-11-13 08:51] LABS: BASOPHILS % (AUTO) 0.1 % (0-1); HEMATOCRIT 49.2 % (35.0-45.0); MEAN CORPUSCULAR HEMOGLOBIN 33.5 PG (27.0-31.0); MEAN CORPUSCULAR HGB CONC 34.6 g/dL (33.0-36.5); MEAN PLATELET VOLUME 9.4 FL (7.4-10.4); MONOCYTES % (AUTO) 11.9 % (2-12); PLATELET COUNT 340 X10'3 (140-440); RED CELL DISTRIBUTION WIDTH 15.5 % (11.5-14.5)
[2022-11-13 08:54] LABS: GLUCOSE 747 MG/DL (70-104)
--- NOTE | 2022-11-13 08:55 | NUR ---
Received critical lab @ 0854 of gluc 747. Provider in w/ another pt at this time, and will notify as soon as available.
[2022-11-13 09:13] LABS: ACANTHOCYTES FEW; ELLIPTOCYTES FEW; PLATELET ESTIMATE NORMAL; STOMATOCYTES 1+; TARGET CELLS FEW; TEAR DROP CELLS FEW
[2022-11-13 09:14] LABS: LARGE PLATELETS FEW
[2022-11-13] MEDS ORDERED: Insulin Reg/NS 100units/100mL 100 ML IV PRN (09:20)
--- NOTE | 2022-11-13 10:05 | NUR ---
[facility] [phone] @ [phone].
[2022-11-13] MEDS ORDERED: magnesium 2GM in 50ml NS 50 ML IV PRN (10:45)
[2022-11-13] MEDS ORDERED: magnesium 4gm in 100ml NS 100 ML IV PRN (10:45)
[2022-11-13] MEDS ORDERED: potassium Cl 40MEQ/1/2NS 520ml 520 ML IV PRN ×3 (10:45→16:25)
[2022-11-13] MEDS ORDERED: magnesium Cl slow-release 64mg tablet PO PRN (10:45)
[2022-11-13] MEDS ORDERED: normal saline 1000ml 1,000 ML IV SCH (10:45)
[2022-11-13] MEDS ORDERED: acetaminophen 325mg tablet PO PRN (10:45)
[2022-11-13] MEDS ORDERED: acetaminophen 650mg rectal suppository RC PRN (10:45)
[2022-11-13 10:57] LABS: MAGNESIUM 2.5 MG/DL (1.5-2.4)
[2022-11-13] MEDS ORDERED: ERGO500041 PO (11:22)
[2022-11-13] MEDS ORDERED: LIPA1CAP18 PO (11:24)
[2022-11-13] MEDS ORDERED: CARB200T2 PO (11:25)
[2022-11-13] MEDS ORDERED: FLUO40CA PO (11:26)
[2022-11-13 12:55] LABS: URINE HCG NEGATIVE (NEG)
[2022-11-13 12:56] LABS: CLARITY,URINE CLEAR (Clear); COLOR,URINE YELLOW (Yellow); GLUCOSE, URINE >=1000 mg/dl (Neg); KETONES,URINE 40 mg/dl (Neg); LEUKOCYTE ESTERASE ,URINE NEGATIVE (Neg); NITRITES, URINE NEGATIVE (Neg); OCCULT BLOOD,URINE TRACE-INTACT (Neg); PROTEIN,URINE NEGATIVE (Neg); UROBILINOGEN,URINE 0.2 E.U/dL (0.2-1.0)
[2022-11-13 12:58] LABS: UA COLLECTION TYPE CLN CATCH MIDSTREAM
--- NOTE | 2022-11-13 13:17 | NUR ---
TPN Consult: Pt admit DX DKA, hyponatremia, depression, GERD, and IDDM stopped taking insulin since felt sick per EMR. Pt hx chronic pancreatitis, Whipple procedure, pancreatectomy, pancreatic islet cell transplant, cholecystectomy, T1DM, nightly cannabis usage, and chronic TPN w/ clear liquids and pancreatic enzymes at home per EMR. Pt hx GJ tube tolerating EN October 2020 though GJ removed later that month per EMR. Currently in ER though admit orders to floor in place per EMR and per RN waiting for bed at this time. TPN recs below; will monitor for tolerance and adjustment needs pending scaled wt this admit as last scaled wt hx April 2022 in EMR. Last A1C 7.7% 08/16/22; DM diet ed not indicated given chronically on nutrition support at baseline. Will continue to follow. Rec: 1. Continuous TPN per MD via central line using 2:1 Clinimix-E 5/20 at 65 ml/hr goal with additional 100ml 20% ILE to run for 12 hours daily at 8.33 ml/hr. To provide 1560 ml volume/day, 78g AA, 312g DEX (3.97 mg/kg/min GIR), and 1573 kcal 2. Once PO return to clear liquids diet pt follows at home- advance to carb controlled diet as medically indicated; pancreatic enzymes resumption w/ meals once PO 3. TG/PALB Q / 4. Daily scaled wts; monitor need to adjust recs once a scaled wt is obtained 5. Consider jejunal feedings IF within pt long-term POC given functional gut Addendum: 11/13/22 at [address] Amended: Links added.
[2022-11-13 13:22] LABS: SQUAMOUS EPITHELIAL CELL,UR FEW /LPF (FEW)
[2022-11-13 13:24] LABS: BACTERIA,URINE FEW /HPF (Neg); RBC,URINE 0-2 /HPF (0-2); WBC,URINE 0-4 /HPF (0-4); YEAST FEW /HPF (NEGATIVE)
--- NOTE | 2022-11-13 14:01 | NUR ---
Insulin drip dc'd per MD order. BG 151.
[2022-11-13 14:18] LABS: PHOSPHORUS 4.4 MG/DL (2.3-4.5); TRIGLYCERIDES 241 MG/DL (20-135)
[2022-11-13] MEDS ORDERED: dextrose 50%-water 50ml dispensing syringe IV ONE (14:35)
--- NOTE | 2022-11-13 14:49 | NUR ---
Patient in room ED 13. I have received report from Lynnette PEREZ and had the opportunity to ask questions and assume patient care.
--- NOTE | 2022-11-13 15:44 | NUR ---
PAGER ID: [phone] MESSAGE: Svetlana Steinberg [id number]- Current BG 169 , previous BG 39. Do you want her to be on the hyperglycemic protocol or restart insulin GTT? Maybe at a lower rate of 3-4units? -Kika GUEVARA [phone] Addendum: 11/13/22 at 1612 by Kika Reis RN NNO given at this time. Please see eMAR.
[2022-11-13] MEDS ORDERED: Dextrose 10%-water IV solution 1,000 ML IV PRN (16:00)
--- NOTE | 2022-11-13 16:12 | NUR ---
PAGER ID: [phone] MESSAGE: Svetlana Steinberg [id number]- May this Pt be placed on Hypo/Hyperglycemic protocol? Kika EXT [phone]
[2022-11-13] MEDS ORDERED: sodium bicarbonate (8.4%) inj. 50 MEQ in dextrose 5% water 500ml 250 ML IV PRN (16:25)
[2022-11-13] MEDS ORDERED: sodium phosphate inj. 30 MMOL in dextrose 5%-water 250 ML IV PRN (16:25)
[2022-11-13] MEDS ORDERED: potassium CL 20mEq in D5-1/2NS 1,000 ML IV PRN (16:25)
[2022-11-13] MEDS ORDERED: Insulin Reg/NS 100units/100mL 100 ML IV SCH (16:25)
[2022-11-13] MEDS ORDERED: potassium Cl 20 mEq SR tablet PO PRN ×2 (16:25)
[2022-11-13] MEDS ORDERED: sodium bicarbonate (8.4%) inj. 100 MEQ in dextrose 5% water 500ml 500 ML IV PRN (16:25)
[2022-11-13] MEDS ORDERED: insulin regular, human U-100 3ml vial - multi-dose IV PRN (16:25)
[2022-11-13] MEDS ORDERED: sodium phosphate inj. 15 MMOL in dextrose 5%-water 250 ML IV PRN (16:25)
[2022-11-13] MEDS ORDERED: Neutra Phos packet PO PRN (16:25)
[2022-11-13] MEDS: chromic chloride inj. 10 MCG, ZINC/COPPER/MANGANESE/SELENIUM 1 ML in AA 5%/CALCIUM/LYTE... IV SCH (16:27)
[2022-11-13] MEDS: MVI, adult No.4 with vit. K 10 ML in dextrose 5% water 500ml 500 ML IV SCH ×2 (16:28)
[2022-11-13] MEDS: fat emulsion 20% inj. 100 ML IV SCH (16:28)
[2022-11-13 16:55] LABS: ALBUMIN 4.1 G/DL (3.4-5.0); ANION GAP 10 (8-16); BLOOD UREA NITROGEN 28 MG/DL (7-18); BUN/CREATININE RATIO 26.4 (10.0-20.0); CALCIUM 9.4 MG/DL (8.5-10.1); CHLORIDE 89 MMOL/L (99-107); CREATININE 1.06 MG/DL (0.40-0.90); GLUCOSE 191 MG/DL (70-104); POTASSIUM 3.4 MMOL/L (3.5-5.1); SODIUM 132 MMOL/L (135-145); TOTAL CARBON DIOXIDE 33.1 MMOL/L (24-32); eGFR 56 ML/MIN
[2022-11-13] MEDS: normal saline 1000ml 1,000 ML IV SCH ×4 (17:05→20:27)
[2022-11-13] MEDS ORDERED: MESSAGE TO PHARMACY PO ONE (17:40)
[2022-11-13] MEDS ORDERED: DEXTROSE 15 GM of carb/4 tabs (each vial/BOTTLE has 4 tablets) PO PRN ×2 (17:40)
[2022-11-13] MEDS ORDERED: dextrose 50%-water 50ml dispensing syringe IV PRN ×2 (17:40)
[2022-11-13] MEDS ORDERED: glucagon, human recombinant 1mg kit SUBCUT PRN (17:40)
[2022-11-13] MEDS ORDERED: insulin Lispro (HumaLOG) vial - multi-dose SQ SCH (17:40)
--- NOTE | 2022-11-13 17:59 | NUR ---
pt complaining of 7/10 abdominal pain. Does not have scheduled pain medication. paged. PAGER ID: [phone] MESSAGE: Svetlana Steinberg [id number]. Pt having 7/10 abdominal pain. Pt NPO, Allergic to Morphine. Robson worked in ER. Can we get pain control orders. Otoniel Underwood RN ext [phone]
[2022-11-13 18:00] VITALS: BP 100/47
--- NOTE | 2022-11-13 18:00 | NUR ---
Patient in room PCU 3024. I have received report from Kika PEREZ and had the opportunity to ask questions and assume patient care.
[2022-11-13] MEDS ORDERED: insulin regular, human 10 units/0.1 ml syringe IV PRN (18:16)
[2022-11-13] MEDS: insulin regular, human U-100 3ml vial - multi-dose SQ SCH (18:21)
--- NOTE | 2022-11-13 18:40 | NUR ---
Problems reprioritized. Patient report given to Augusta, questions answered & plan of care reviewed with .
--- NOTE | 2022-11-13 19:49 | NUR ---
CALLED DR. ISBELL FOR NEW DKA INSULIN GTT PROTOCOL ON PATIENT; NEW ORDERS SUBMITTED BY SALINA HOWELL
[2022-11-13] MEDS ORDERED: K and/or MAG REPLACEMENT MC SCH (20:00)
[2022-11-13 20:41] LABS: D-DIMER 0.43 MG/L FEU (0-0.50)
[2022-11-13 20:44] LABS: ALANINE AMINOTRANSFERASE 26 U/L (12-78); ALBUMIN 3.2 G/DL (3.4-5.0); ALKALINE PHOSPHATASE 135 IU/L (46-116); ANION GAP 6 (8-16); ASPARTATE AMINO TRANSFERASE 19 U/L (10-37); BILIRUBIN,TOTAL 0.4 MG/DL (0.1-1.0); BLOOD UREA NITROGEN 23 MG/DL (7-18); BUN/CREATININE RATIO 21.7 (10.0-20.0); CALCIUM 7.7 MG/DL (8.5-10.1); CHLORIDE 95 MMOL/L (99-107); CREATININE 1.06 MG/DL (0.40-0.90); GLUCOSE 338 MG/DL (70-104); POTASSIUM 3.2 MMOL/L (3.5-5.1); SODIUM 133 MMOL/L (135-145); TOTAL CARBON DIOXIDE 32.4 MMOL/L (24-32); TOTAL PROTEIN 6.4 G/DL (6.4-8.2); eGFR 56 ML/MIN
[2022-11-13 20:47] LABS: ABG BASE EXCESS 6.1 mmol/L (-2.0-2.0); ABG HCO3 31.6 mmol/L (22.0-26.0); ABG OXYGEN SATURATION 96.7 % (94-97); ABG PCO2 (T) 49.4 mmHg (32.0-45.0); ABG PO2 (T) 98.3 mmHg (75.0-100.0); FCOHb 0.6 % (0.0-3.9); FLOW 2 L/min; FMetHb 0.3 % (0.0-1.5); FO2Hb 95.8 % (94-97); TOTAL HEMOGLOBIN 13.3 G/dl (12.0-16.0)
[2022-11-13 20:51] LABS: CREATINE KINASE 92 U/L (26-192); PHOSPHORUS 3.8 MG/DL (2.3-4.5)
[2022-11-13 21:00] LABS: OSMOLALITY 300 MOSM/K (280-300)
--- NOTE | 2022-11-13 21:50 | NUR ---
MD ISBELL CALLED TO STATE KEEP PATIENT ON HYPER/HYPO PROTOCOL
[2022-11-13] MEDS: HYDROmorphone inj. 0.5 MG/0.5 ML DISP.SYRIN IV PRN (22:06)
[2022-11-13 23:00] VITALS: BP 96/57
[2022-11-13] MEDS: insulin glargine (Lantus) pen - multi-dose SQ SCH (23:15)
[2022-11-14] MEDS: normal saline 1000ml 1,000 ML IV SCH ×3 (00:25→12:53)
[2022-11-14] MEDS: HYDROmorphone inj. 0.5 MG/0.5 ML DISP.SYRIN IV PRN ×8 (00:31→22:13)
[2022-11-14] MEDS: insulin regular, human U-100 3ml vial - multi-dose SQ SCH ×2 (01:24→17:08)
[2022-11-14 02:00] VITALS: BP 100/59
--- NOTE | 2022-11-14 02:54 | NUR ---
patient was on a DKA protocol down in the ED. blood sugar went low to 39. when patient came to floor, there was no insulin drip. day shift nurse stated not sure what protocol the mds want us to follow, DKA or Hyperglecmia or Hypoglecmia protocol. md ordered xray, ABG, labs. urine everything came back except for the urine. patient has not voided. per md follow hyperglycemia and hypoglycemia. checked blood sugar at 246 at 2200. gave lantus 12 units. checked blood sugar at 0130am because patient is NPO and on TPN.. blood sugar was 286. followed TPN formula. gave 11 units of Hummlin at 01:30am. patient is in high level of pain. patient stated she is allergic to morphine not hydrocodone. patient has 0.5mg of dilaudid q two hours.
[2022-11-14 05:29] LABS: CLARITY,URINE CLEAR (Clear); COLOR,URINE YELLOW (Yellow); GLUCOSE, URINE >=1000 mg/dl (Neg); KETONES,URINE 15 mg/dl (Neg); LEUKOCYTE ESTERASE ,URINE NEGATIVE (Neg); NITRITES, URINE NEGATIVE (Neg); OCCULT BLOOD,URINE NEGATIVE (Neg); PH,URINE 6.5 (4.8-8.0); PROTEIN,URINE NEGATIVE (Neg); URINE AMPHETAMINE SCREEN NEGATIVE (Neg); URINE BARBITUATE SCREEN NEGATIVE (Neg); URINE BENZODIAZEPINES SCREEN NEGATIVE (Neg); URINE METHADONE SCREEN NEGATIVE (Neg); UROBILINOGEN,URINE 0.2 E.U/dL (0.2-1.0)
[2022-11-14 05:30] LABS: URINE CANNABINOID SCREEN POSITIVE (Neg); URINE COCAINE SCREEN NEGATIVE (Neg); URINE OPIATE SCREEN POSITIVE (Neg); URINE PHENCYCLIDINE SCREEN NEGATIVE (Neg)
[2022-11-14 05:38] LABS: UA COLLECTION TYPE CLN CATCH MIDSTREAM
[2022-11-14 05:39] LABS: BACTERIA,URINE FEW /HPF (Neg); RBC,URINE NONE SEEN /HPF (0-2); WBC,URINE 0-4 /HPF (0-4)
[2022-11-14 05:40] LABS: MUCUS STRANDS FEW /LPF (Neg); SQUAMOUS EPITHELIAL CELL,UR MANY /LPF (FEW)
--- NOTE | 2022-11-14 05:40 | NUR ---
patient refused to let me look at skin. patient states her skin is fine and she is too cold to let me check. the skin I could see had burises from blood sticks
[2022-11-14 06:13] LABS: BASOPHILS # (AUTO) 0.2 X10'3 (0-0.2); EOSINOPHILS % (AUTO) 0.2 % (0-6); HEMATOCRIT 37.5 % (35.0-45.0); HEMOGLOBIN 12.7 g/dl (12.0-16.0); LYMPHOCYTES % (AUTO) 12.8 % (21-51); MEAN CORPUSCULAR HEMOGLOBIN 33.2 PG (27.0-31.0); MEAN CORPUSCULAR HGB CONC 33.9 g/dL (33.0-36.5); MEAN CORPUSCULAR VOLUME 97.9 FL (78-98); MEAN PLATELET VOLUME 8.2 FL (7.4-10.4); MONOCYTES # (AUTO) 1.6 X10'3 (0-0.9); MONOCYTES % (AUTO) 10.2 % (2-12); NEUTROPHILS % (AUTO) 75.8 % (42-75); PLATELET COUNT 253 X10'3 (140-440); RED BLOOD COUNT 3.83 X10'6 (4.20-5.60); RED CELL DISTRIBUTION WIDTH 15.1 % (11.5-14.5); WHITE BLOOD COUNT 15.8 X10'3 (4.5-11.0)
--- NOTE | 2022-11-14 06:36 | NUR ---
patient states she is allegric to morphine not hydrocodone. I made the change under allergies
[2022-11-14 06:47] LABS: ANION GAP 4 (8-16); BLOOD UREA NITROGEN 15 MG/DL (7-18); BUN/CREATININE RATIO 20.5 (10.0-20.0); CALCIUM 8.6 MG/DL (8.5-10.1); CHLORIDE 100 MMOL/L (99-107); CREATININE 0.73 MG/DL (0.40-0.90); GLUCOSE 170 MG/DL (70-104); MAGNESIUM 2.5 MG/DL (1.5-2.4); PHOSPHORUS 2.6 MG/DL (2.3-4.5); POTASSIUM 3.2 MMOL/L (3.5-5.1); PREALBUMIN 18.5 MG/DL (19-36); SODIUM 136 MMOL/L (135-145); TOTAL CARBON DIOXIDE 32.4 MMOL/L (24-32); TRIGLYCERIDES 75 MG/DL (20-135); eGFR 87 ML/MIN
[2022-11-14 07:00] VITALS: BP 157/97
[2022-11-14] MEDS: ondansetron/PF 4mg/2ml inj IV PRN ×2 (07:32→16:33)
[2022-11-14 08:00] VITALS: BP_SYST 120; BP_SYST 121; BP_SYST 125; BP_DIAS 67; BP_DIAS 68; BP_DIAS 76
[2022-11-14] MEDS: K and/or MAG REPLACEMENT MC SCH ×2 (08:00→20:00)
--- NOTE | 2022-11-14 08:37 | NUR ---
Patient in room PCU 3024. I have received report from Qi PEREZ and had the opportunity to ask questions and assume patient care.
--- NOTE | 2022-11-14 11:34 | NUR ---
Malnutrition Consult: Pt chronically on TPN for nutrition at home meeting nutrient needs and current standing scaled wt consistent w/ prior standing scaled wt hx in EMR; lacks malnutrition criteria at this time. Noted pt TPN started yesterday but not advanced to goal 65ml/hr last night. Per pharmacist; night RN held advancement due to pt N/V concern for refeeding. RD and pharmacist d/w RN today recommend advancing TPN to goal since N/V not indication of refeeding w/ pt Mg consistently 2.5mg/dl. Per RN, pt is the one who reports concern for refeeding related to N/V. Per RN, pt perseverates on dilaudid schedule which can cause nausea pending MD rounds for anti-emetics. TPN now advanced to goal. Will monitor for further PN tolerance and adjustment needs. Addendum: 11/14/22 at [address] Amended: Links added.
[2022-11-14] MEDS ORDERED: potassium Cl 40MEQ/1/2NS 520ml 520 ML IV ONE (12:00)
[2022-11-14] MEDS: proCHLORperazine 10 MG/2 ml inj IV PRN (12:44)
[2022-11-14 17:00] VITALS: BP 160/91
[2022-11-14] MEDS: levoFLOXACIN-Levaquin 500mg/D5 100 ML IV SCH (17:13)
[2022-11-14] MEDS: fat emulsion 20% inj. 100 ML IV SCH (17:58)
[2022-11-14 18:00] VITALS: BP 107/68
[2022-11-14] MEDS: chromic chloride inj. 10 MCG, ZINC/COPPER/MANGANESE/SELENIUM 1 ML in AA 5%/CALCIUM/LYTE... IV SCH (18:02)
--- NOTE | 2022-11-14 18:26 | NUR ---
Problems reprioritized. Patient report given, questions answered & plan of care reviewed with Qi PEREZ.
[2022-11-14] MEDS: insulin glargine (Lantus) pen - multi-dose SQ SCH (22:22)
[2022-11-14 23:00] VITALS: BP 120/66
[2022-11-15] MEDS: HYDROmorphone inj. 0.5 MG/0.5 ML DISP.SYRIN IV PRN ×11 (00:51→22:17)
[2022-11-15 06:30] VITALS: BP 125/76
[2022-11-15 06:41] LABS: BASOPHILS # (AUTO) 0.1 X10'3 (0-0.2); EOSINOPHILS # (AUTO) 0.1 X10'3 (0-0.9); EOSINOPHILS % (AUTO) 0.7 % (0-6); HEMATOCRIT 38.7 % (35.0-45.0); HEMOGLOBIN 13.1 g/dl (12.0-16.0); LYMPHOCYTES # (AUTO) 2.5 X10'3 (1.1-4.8); LYMPHOCYTES % (AUTO) 24.9 % (21-51); MEAN CORPUSCULAR HEMOGLOBIN 33.3 PG (27.0-31.0); MEAN CORPUSCULAR HGB CONC 33.8 g/dL (33.0-36.5); MEAN CORPUSCULAR VOLUME 98.4 FL (78-98); MEAN PLATELET VOLUME 8.9 FL (7.4-10.4); MONOCYTES # (AUTO) 1.3 X10'3 (0-0.9); MONOCYTES % (AUTO) 12.9 % (2-12); NEUTROPHILS # (AUTO) 6.1 X10'3 (1.8-7.7); NEUTROPHILS % (AUTO) 60.5 % (42-75); PLATELET COUNT 254 X10'3 (140-440); RED BLOOD COUNT 3.94 X10'6 (4.20-5.60)
[2022-11-15 06:49] LABS: ANION GAP 8 (8-16); BLOOD UREA NITROGEN 13 MG/DL (7-18); BUN/CREATININE RATIO 18.8 (10.0-20.0); CALCIUM 8.9 MG/DL (8.5-10.1); CHLORIDE 99 MMOL/L (99-107); CREATININE 0.69 MG/DL (0.40-0.90); GLUCOSE 228 MG/DL (70-104); MAGNESIUM 2.2 MG/DL (1.5-2.4); POTASSIUM 3.4 MMOL/L (3.5-5.1); SODIUM 135 MMOL/L (135-145); TOTAL CARBON DIOXIDE 28.5 MMOL/L (24-32); eGFR > 90 ML/MIN
[2022-11-15] MEDS: MVI, adult No.4 with vit. K 10 ML in dextrose 5% water 500ml 500 ML IV SCH ×2 (07:40)
[2022-11-15] MEDS: levoFLOXACIN-Levaquin 500mg/D5 100 ML IV SCH (07:40)
[2022-11-15] MEDS: K and/or MAG REPLACEMENT MC SCH ×2 (08:00→20:00)
[2022-11-15] MEDS: insulin regular, human U-100 3ml vial - multi-dose SQ SCH ×3 (08:08→22:29)
[2022-11-15] MEDS: pantoprazole 40MG/NS 100ML BAG 100 ML IV SCH (09:38)
--- NOTE | 2022-11-15 10:02 | NUR ---
pt refused orthostatic vital signs
[2022-11-15 11:00] VITALS: BP 104/65
[2022-11-15 15:00] VITALS: BP 117/65
[2022-11-15] MEDS: fat emulsion 20% inj. 100 ML IV SCH (15:57)
[2022-11-15] MEDS: chromic chloride inj. 10 MCG, ZINC/COPPER/MANGANESE/SELENIUM 1 ML in AA 5%/CALCIUM/LYTE... IV SCH (15:57)
--- NOTE | 2022-11-15 17:56 | NUR ---
[place] documentation: I have reviewed and agree with all interventions, assessments performed and documented by CHRIS Dyer.
--- NOTE | 2022-11-15 17:56 | NUR ---
[place] Medication Administration: For this medication-pass time frame, all medication were reviewed, dispensed, administered and documented per hospital policy by CHRIS Dyer.
[2022-11-15 19:00] VITALS: BP 117/74
--- NOTE | 2022-11-15 21:13 | NUR ---
pt refused orthostatic hypotension vital signs. Addendum: 11/15/22 at 2114 by Zoe Fine RN Amended: Links added.
[2022-11-15 22:00] VITALS: BP 119/64
[2022-11-15] MEDS: insulin glargine (Lantus) pen - multi-dose SQ SCH (22:23)
[2022-11-16] MEDS: ondansetron/PF 4mg/2ml inj IV PRN ×4 (00:21→21:07)
[2022-11-16] MEDS: HYDROmorphone inj. 0.5 MG/0.5 ML DISP.SYRIN IV PRN ×10 (00:21→21:07)
[2022-11-16 02:00] VITALS: BP 149/77
[2022-11-16] MEDS: proCHLORperazine 10 MG/2 ml inj IV PRN ×4 (02:42→23:04)
--- NOTE | 2022-11-16 04:01 | NUR ---
checked patients blood sugar at 2:30am it was 48. gave cranberry juice and dextrose 50mg IV. rechecked blood sugar 15 min later it was 196. rechecked at 3:45am it was 150. patient was asymptomatic
--- NOTE | 2022-11-16 05:15 | NUR ---
page provider PAGER ID: [phone] MESSAGE: PCU [id number]. Marsha Steinberg. Pt is having emesis without relief from Ondasetron 4mg IV given at 0021 Q6h and Prochlorperazine 5mg IV given at 0242 Q6h. Zoe PEREZ [phone]
[2022-11-16] MEDS: metoclopramide 5 mg/ml inj IV PRN ×3 (05:36→19:06)
[2022-11-16 06:51] LABS: BASOPHILS # (AUTO) 0.1 X10'3 (0-0.2); BASOPHILS % (AUTO) 0.9 % (0-1); EOSINOPHILS # (AUTO) 0.1 X10'3 (0-0.9); EOSINOPHILS % (AUTO) 0.7 % (0-6); HEMATOCRIT 39.4 % (35.0-45.0); HEMOGLOBIN 13.5 g/dl (12.0-16.0); LYMPHOCYTES # (AUTO) 0.8 X10'3 (1.1-4.8); LYMPHOCYTES % (AUTO) 9.2 % (21-51); MEAN CORPUSCULAR HEMOGLOBIN 33.6 PG (27.0-31.0); MEAN CORPUSCULAR HGB CONC 34.3 g/dL (33.0-36.5); MEAN CORPUSCULAR VOLUME 98.1 FL (78-98); MEAN PLATELET VOLUME 8.5 FL (7.4-10.4); MONOCYTES # (AUTO) 0.8 X10'3 (0-0.9); MONOCYTES % (AUTO) 8.4 % (2-12); NEUTROPHILS # (AUTO) 7.3 X10'3 (1.8-7.7); NEUTROPHILS % (AUTO) 80.8 % (42-75); PLATELET COUNT 242 X10'3 (140-440); RED BLOOD COUNT 4.02 X10'6 (4.20-5.60); RED CELL DISTRIBUTION WIDTH 15.2 % (11.5-14.5)
[2022-11-16 07:00] VITALS: BP 167/79
[2022-11-16 07:11] LABS: ALBUMIN 3.2 G/DL (3.4-5.0); ANION GAP 7 (8-16); BLOOD UREA NITROGEN 8 MG/DL (7-18); BUN/CREATININE RATIO 14.8 (10.0-20.0); CHLORIDE 101 MMOL/L (99-107); CREATININE 0.54 MG/DL (0.40-0.90); GLUCOSE 219 MG/DL (70-104); MAGNESIUM 1.9 MG/DL (1.5-2.4); POTASSIUM 4.1 MMOL/L (3.5-5.1); SODIUM 134 MMOL/L (135-145); TOTAL CARBON DIOXIDE 26.2 MMOL/L (24-32); eGFR > 90 ML/MIN
[2022-11-16] MEDS: levoFLOXACIN-Levaquin 500mg/D5 100 ML IV SCH (07:33)
[2022-11-16] MEDS: K and/or MAG REPLACEMENT MC SCH ×2 (08:00→19:23)
--- NOTE | 2022-11-16 08:15 | NUR ---
DR BRYAN GAVE ME AN ORDER TO INCREASE DILAUTID FROM 0.5MG IV Q2 HR TO 1MG IV Q2H AND TO MAKE THE PATIENT NPO
[2022-11-16] MEDS: insulin regular, human U-100 3ml vial - multi-dose SQ SCH ×2 (09:34→19:20)
[2022-11-16] MEDS: pantoprazole 40MG/NS 100ML BAG 100 ML IV SCH (09:39)
[2022-11-16 11:00] VITALS: BP 99/61
[2022-11-16] MEDS: normal saline 1000ml 1,000 ML IV SCH (12:35)
--- NOTE | 2022-11-16 13:20 | NUR ---
F/u 11/16: Pt tolerating TPN at goal started on clear liquids diet though continues to have recurrent N/V w/ abdominal pain so to remain NPO per EMR. Pt meeting needs w/ PN at this time receiving electrolyte replacement per protocol. LBM 11/13 per EMR. Will continue to follow. Rec: 1. Continuous TPN per MD via central line using 2:1 Clinimix-E 11/19 at 65 ml/hr goal with additional 100ml 20% ILE to run for 12 hours daily at 8.33 ml/hr. To provide 1560 ml volume/day, 78g AA, 312g DEX (3.97 mg/kg/min GIR), and 1573 kcal 2. Once PO return to clear liquids diet pt follows at home w/ advancement to carb controlled diet as medically indicated; pancreatic enzymes resumption w/ meals once PO 3. TG/PALB Q /; Daily scaled wts 4. Consider jejunal feedings IF within pt long-term POC given functional gut Addendum: 11/16/22 at [address] Amended: Links added.
[2022-11-16] MEDS: chromic chloride inj. 10 MCG, ZINC/COPPER/MANGANESE/SELENIUM 1 ML in AA 5%/CALCIUM/LYTE... IV SCH (16:27)
[2022-11-16] MEDS: fat emulsion 20% inj. 100 ML IV SCH (16:28)
[2022-11-16 19:00] VITALS: BP 104/67
[2022-11-16] MEDS: insulin glargine (Lantus) pen - multi-dose SQ SCH (19:18)
[2022-11-16 21:40] VITALS: BP 96/55
[2022-11-16] MEDS: HYDROmorphone 1 mg/ml syringe IV PRN (23:04)
[2022-11-17] MEDS: metoclopramide 5 mg/ml inj IV PRN ×4 (01:09→20:54)
[2022-11-17] MEDS: HYDROmorphone 1 mg/ml syringe IV PRN ×11 (01:09→23:32)
[2022-11-17 01:45] VITALS: BP 88/47
[2022-11-17] MEDS: insulin regular, human U-100 3ml vial - multi-dose SQ SCH ×2 (03:14→15:06)
[2022-11-17] MEDS: ondansetron/PF 4mg/2ml inj IV PRN ×3 (03:16→16:19)
[2022-11-17] MEDS: proCHLORperazine 10 MG/2 ml inj IV PRN ×3 (05:48→18:44)
--- NOTE | 2022-11-17 06:28 | NUR ---
Patient in room PCU 3024. I have received report from monica melara and had the opportunity to ask questions and assume patient care.
[2022-11-17 06:31] LABS: BASOPHILS # (AUTO) 0.1 X10'3 (0-0.2); EOSINOPHILS # (AUTO) 0.4 X10'3 (0-0.9); EOSINOPHILS % (AUTO) 6.2 % (0-6); HEMATOCRIT 38.4 % (35.0-45.0); HEMOGLOBIN 12.8 g/dl (12.0-16.0); LYMPHOCYTES # (AUTO) 2.9 X10'3 (1.1-4.8); LYMPHOCYTES % (AUTO) 40.1 % (21-51); MEAN CORPUSCULAR HEMOGLOBIN 32.8 PG (27.0-31.0); MEAN CORPUSCULAR HGB CONC 33.4 g/dL (33.0-36.5); MEAN CORPUSCULAR VOLUME 98.3 FL (78-98); MEAN PLATELET VOLUME 8.9 FL (7.4-10.4); MONOCYTES # (AUTO) 0.9 X10'3 (0-0.9); NEUTROPHILS # (AUTO) 2.9 X10'3 (1.8-7.7); NEUTROPHILS % (AUTO) 40.7 % (42-75); PLATELET COUNT 249 X10'3 (140-440); RED BLOOD COUNT 3.91 X10'6 (4.20-5.60); RED CELL DISTRIBUTION WIDTH 14.8 % (11.5-14.5); WHITE BLOOD COUNT 7.1 X10'3 (4.5-11.0)
--- NOTE | 2022-11-17 06:35 | NUR ---
reported to days. noted pt resting, next pain medication due 0800 with accucheck. labs drawn.
[2022-11-17 06:39] LABS: ANION GAP 4 (8-16); BLOOD UREA NITROGEN 14 MG/DL (7-18); BUN/CREATININE RATIO 22.6 (10.0-20.0); CALCIUM 8.8 MG/DL (8.5-10.1); CHLORIDE 104 MMOL/L (99-107); CREATININE 0.62 MG/DL (0.40-0.90); PHOSPHORUS 3.7 MG/DL (2.3-4.5); POTASSIUM 3.6 MMOL/L (3.5-5.1); PREALBUMIN 23.7 MG/DL (19-36); SODIUM 139 MMOL/L (135-145); TOTAL CARBON DIOXIDE 30.7 MMOL/L (24-32); TRIGLYCERIDES 46 MG/DL (20-135); eGFR > 90 ML/MIN
[2022-11-17 06:50] LABS: GLUCOSE 47 MG/DL (70-104)
[2022-11-17 07:13] VITALS: BP 81/53
[2022-11-17] MEDS: K and/or MAG REPLACEMENT MC SCH ×2 (08:00→20:00)
[2022-11-17] MEDS: pantoprazole 40MG/NS 100ML BAG 100 ML IV SCH (08:20)
[2022-11-17] MEDS: levoFLOXACIN-Levaquin 500mg/D5 100 ML IV SCH (09:04)
[2022-11-17 11:27] VITALS: BP 97/58
[2022-11-17 15:22] VITALS: BP 101/55
[2022-11-17] MEDS: chromic chloride inj. 10 MCG, ZINC/COPPER/MANGANESE/SELENIUM 1 ML in AA 5%/CALCIUM/LYTE... IV SCH (16:19)
[2022-11-17] MEDS: fat emulsion 20% inj. 100 ML IV SCH (16:19)
--- NOTE | 2022-11-17 18:27 | NUR ---
Problems reprioritized. Patient report given, questions answered & plan of care reviewed with DOLORES PEREZ.
--- NOTE | 2022-11-17 18:33 | NUR ---
Patient in room PCU 3017. I have received report from Elisha PEREZ and had the opportunity to ask questions and assume patient care.
[2022-11-17 19:00] VITALS: BP 117/60
[2022-11-17] MEDS: insulin glargine (Lantus) pen - multi-dose SQ SCH (21:10)
[2022-11-17 23:00] VITALS: BP 92/52
[2022-11-18] MEDS: HYDROmorphone 1 mg/ml syringe IV PRN ×5 (02:02→10:58)
[2022-11-18] MEDS: proCHLORperazine 10 MG/2 ml inj IV PRN (02:02)
[2022-11-18] MEDS: insulin regular, human U-100 3ml vial - multi-dose SQ SCH (02:15)
[2022-11-18 03:33] VITALS: BP 105/64
[2022-11-18] MEDS: metoclopramide 5 mg/ml inj IV PRN (04:24)
--- NOTE | 2022-11-18 06:12 | NUR ---
Patient in room PCU 3024. I have received report from archana melara and had the opportunity to ask questions and assume patient care.
--- NOTE | 2022-11-18 06:23 | NUR ---
Problems reprioritized. Patient report given, questions answered & plan of care reviewed with Elisha PEREZ.Patient stable at shift change.
[2022-11-18] MEDS: ondansetron/PF 4mg/2ml inj IV PRN (06:36)
[2022-11-18 06:56] VITALS: BP 89/52
[2022-11-18] MEDS: pantoprazole 40MG/NS 100ML BAG 100 ML IV SCH (07:39)
[2022-11-18] MEDS: MVI, adult No.4 with vit. K 10 ML in dextrose 5% water 500ml 500 ML IV SCH ×2 (07:39)
[2022-11-18 07:46] LABS: BASOPHILS # (AUTO) 0.1 X10'3 (0-0.2); EOSINOPHILS # (AUTO) 0.7 X10'3 (0-0.9); EOSINOPHILS % (AUTO) 9.1 % (0-6); HEMATOCRIT 36.4 % (35.0-45.0); HEMOGLOBIN 12.2 g/dl (12.0-16.0); LYMPHOCYTES # (AUTO) 2.5 X10'3 (1.1-4.8); LYMPHOCYTES % (AUTO) 34.5 % (21-51); MEAN CORPUSCULAR HEMOGLOBIN 33.1 PG (27.0-31.0); MEAN CORPUSCULAR HGB CONC 33.5 g/dL (33.0-36.5); MEAN CORPUSCULAR VOLUME 98.5 FL (78-98); MEAN PLATELET VOLUME 8.8 FL (7.4-10.4); MONOCYTES # (AUTO) 1.1 X10'3 (0-0.9); MONOCYTES % (AUTO) 15.6 % (2-12); NEUTROPHILS # (AUTO) 2.8 X10'3 (1.8-7.7); NEUTROPHILS % (AUTO) 38.8 % (42-75); PLATELET COUNT 252 X10'3 (140-440); RED BLOOD COUNT 3.69 X10'6 (4.20-5.60); RED CELL DISTRIBUTION WIDTH 15.1 % (11.5-14.5); WHITE BLOOD COUNT 7.1 X10'3 (4.5-11.0)
[2022-11-18] MEDS: K and/or MAG REPLACEMENT MC SCH (08:00)
[2022-11-18 08:10] LABS: ALBUMIN 2.9 G/DL (3.4-5.0); ANION GAP 3 (8-16); BLOOD UREA NITROGEN 12 MG/DL (7-18); BUN/CREATININE RATIO 20.3 (10.0-20.0); CALCIUM 8.8 MG/DL (8.5-10.1); CHLORIDE 105 MMOL/L (99-107); CREATININE 0.59 MG/DL (0.40-0.90); PHOSPHORUS 3.7 MG/DL (2.3-4.5); POTASSIUM 3.8 MMOL/L (3.5-5.1); SODIUM 139 MMOL/L (135-145); TOTAL CARBON DIOXIDE 31.3 MMOL/L (24-32); eGFR > 90 ML/MIN
[2022-11-18 08:12] LABS: GLUCOSE 42 MG/DL (70-104)
[2022-11-18] MEDS: levoFLOXACIN-Levaquin 500mg/D5 100 ML IV SCH (08:50)
--- NOTE | 2022-11-18 11:05 | NUR ---
PT DISCHARGED IN STABLE CONDITION. LEFT FACILITY IN PRIVATE VEHICLE WITH . NO IV TO DC. FOLLOW UP INSTRUCTIONS GIVEN, ALL QUESTIONS ANSWERED. ALL BELONGINGS IN HAND. Addendum: 11/18/22 at 1105 by Perla Candelaria RN Amended: Links added.
== END 2022-11-18 11:10 | disposition home or self-care (01) | DRG 420 ==
LOC: ER 07:45 → UNDOADMIN 10:48 → ED HOLD 10:48 → EDBEDREQ 14:44 → ED HOLD 15:16 → PCU 3S 15:16 → ED HOLD 19:52 → PCU 3S 19:52
PROVIDERS: ADMIT Internal Medicine; ATTEND Internal Medicine
DX: E11.10 Type 2 diabetes mellitus with ketoacidosis without coma (principal); E43 Unspecified severe protein-calorie malnutrition; K86.89 Other specified diseases of pancreas; E87.1 Hypo-osmolality and hyponatremia; F17.210 Nicotine dependence, cigarettes, uncomplicated; F32.A Depression, unspecified; G43.909 Migraine, unspecified, not intractable, without status migrainosus; G89.29 Other chronic pain; E87.6 Hypokalemia; K21.9 Gastro-esophageal reflux disease without esophagitis; M54.9 Dorsalgia, unspecified; J45.909 Unspecified asthma, uncomplicated; K86.1 Other chronic pancreatitis; Z79.01 Long term (current) use of anticoagulants; Z79.4 Long term (current) use of insulin; Z90.710 Acquired absence of both cervix and uterus; Z90.81 Acquired absence of spleen; Z56.0 Unemployment, unspecified; Z88.5 Allergy status to narcotic agent; Z88.1 Allergy status to other antibiotic agents; Z90.49 Acquired absence of other specified parts of digestive tract; Z79.899 Other long term (current) drug therapy; Z68.1 Body mass index [BMI] 19.9 or less, adult; Z90.411 Acquired partial absence of pancreas
CPT/HCPCS: 36415; 36600; 71045; 80048; 80053; 80305; 81001; 81025; 82550; 82800; 82803; 82948; 83605; 83690; 83735; 83880; 83930; 84100; 84134; 84478; 85008; 85018; 85025; 85379; 87040; 87081; 96365; 96375; 99285; A4615; A6258; C9113; G0378; J0780; J1170; J1815; J1956; J2405; J2765; J3480; J3490; J7030; J7060

== ENCOUNTER 2022-11-22 12:02 | Emergency (ER) | payer MEDICAID ==
[~2022-11-22] VITALS: Ht 167.6 cm; Wt 52.3 kg
[~2022-11-22 12:02] MED LIST changes: -AMYL1CAP57 PO; -CARB200T PO; +CARB200T2 PO; -DIPH25CA83; +ERGO500041 PO; -FLUO10CA28 PO; +FLUO40CA PO; -IBUP-1986 PO; +LIPA1CAP18 PO; -MULT-271; -ONDA8TAB13 PO; -PANT40TA54 PO; -SUMA50TA PO
[2022-11-22 12:44] LABS: BASOPHILS % (AUTO) 0.3 % (0-1); EOSINOPHILS # (AUTO) 0.1 X10'3 (0-0.9); EOSINOPHILS % (AUTO) 0.7 % (0-6); HEMATOCRIT 39.5 % (35.0-45.0); HEMOGLOBIN 13.5 g/dl (12.0-16.0); LYMPHOCYTES # (AUTO) 0.7 X10'3 (1.1-4.8); LYMPHOCYTES % (AUTO) 6.3 % (21-51); MEAN CORPUSCULAR HEMOGLOBIN 33.4 PG (27.0-31.0); MEAN CORPUSCULAR HGB CONC 34.2 g/dL (33.0-36.5); MEAN CORPUSCULAR VOLUME 97.5 FL (78-98); MEAN PLATELET VOLUME 8.4 FL (7.4-10.4); MONOCYTES # (AUTO) 0.8 X10'3 (0-0.9); MONOCYTES % (AUTO) 6.9 % (2-12); NEUTROPHILS # (AUTO) 9.8 X10'3 (1.8-7.7); NEUTROPHILS % (AUTO) 85.8 % (42-75); PLATELET COUNT 402 X10'3 (140-440); RED BLOOD COUNT 4.06 X10'6 (4.20-5.60); RED CELL DISTRIBUTION WIDTH 15.4 % (11.5-14.5); WHITE BLOOD COUNT 11.4 X10'3 (4.5-11.0)
[2022-11-22 12:47] LABS: CLARITY,URINE CLEAR (Clear); COLOR,URINE YELLOW (Yellow); GLUCOSE, URINE 500 mg/dl (Neg); KETONES,URINE 15 mg/dl (Neg); LEUKOCYTE ESTERASE ,URINE NEGATIVE (Neg); NITRITES, URINE NEGATIVE (Neg); OCCULT BLOOD,URINE NEGATIVE (Neg); PH,URINE 8.5 (4.8-8.0); PROTEIN,URINE NEGATIVE (Neg); UROBILINOGEN,URINE 0.2 E.U/dL (0.2-1.0)
[2022-11-22 12:48] LABS: UA COLLECTION TYPE CLN CATCH MIDSTREAM
[2022-11-22 12:50] LABS: URINE HCG NEGATIVE (NEG)
[2022-11-22 12:58] LABS: ALANINE AMINOTRANSFERASE 51 U/L (12-78); ALBUMIN 3.6 G/DL (3.4-5.0); ALBUMIN/GLOBULIN RATIO 0.9 (1.1-1.5); ALKALINE PHOSPHATASE 175 IU/L (46-116); ANION GAP 10 (8-16); ASPARTATE AMINO TRANSFERASE 23 U/L (10-37); BILIRUBIN,TOTAL 0.4 MG/DL (0.1-1.0); BLOOD UREA NITROGEN 8 MG/DL (7-18); CALCIUM 9.2 MG/DL (8.5-10.1); CHLORIDE 101 MMOL/L (99-107); CREATININE 0.89 MG/DL (0.40-0.90); GLUCOSE 290 MG/DL (70-104); POTASSIUM 3.4 MMOL/L (3.5-5.1); SODIUM 139 MMOL/L (135-145); TOTAL CARBON DIOXIDE 28.2 MMOL/L (24-32); TOTAL PROTEIN 7.7 G/DL (6.4-8.2); eGFR 69 ML/MIN
[2022-11-22] MEDS ORDERED: ondansetron/PF 4mg/2ml inj IV ONE (13:00)
[2022-11-22] MEDS ORDERED: normal saline 1000ml 1,000 ML IV ONE ×2 (13:00)
[2022-11-22] MEDS ORDERED: HYDROmorphone 1 mg/ml syringe IV ONE ×2 (13:00→15:15)
[2022-11-22 13:04] LABS: LIPASE < 50 U/L (73-393)
--- NOTE | 2022-11-22 14:00 | NUR ---
No emesis noted during course of stay at this time
[2022-11-22] MEDS ORDERED: morphine 4 MG/ML inj SYRINge IV ONE (15:00)
--- NOTE | 2022-11-22 15:36 | NUR ---
Patient has been sleeping comfortably upon stretcher, requesting to stay in hospital. informed patient we will re-assess after 2nd fluid bolus
[2022-11-22 16:25] VITALS: BP 134/79
== END 2022-11-22 16:26 | disposition home or self-care (01) ==
LOC: ER 12:03
DX: E11.65 Type 2 diabetes mellitus with hyperglycemia (principal); E86.0 Dehydration; G43.909 Migraine, unspecified, not intractable, without status migrainosus; J45.909 Unspecified asthma, uncomplicated; G89.29 Other chronic pain; F12.90 Cannabis use, unspecified, uncomplicated; F32.9 Major depressive disorder, single episode, unspecified; Z90.49 Acquired absence of other specified parts of digestive tract; Z90.710 Acquired absence of both cervix and uterus; Z56.0 Unemployment, unspecified; Z88.5 Allergy status to narcotic agent; Z88.1 Allergy status to other antibiotic agents; Z79.01 Long term (current) use of anticoagulants; Z79.4 Long term (current) use of insulin; Z79.899 Other long term (current) drug therapy
CPT/HCPCS: 36415; 80053; 81003; 81025; 82948; 83690; 85025; 96374; 96375; 96376; 99284; J1170; J2405; J7030

== ENCOUNTER 2022-12-16 06:48 | Inpatient (IN) | payer MEDICAID ==
[~2022-12-16] VITALS: Ht 167.6 cm; Wt 52.0 kg
[2022-12-16 08:01] LABS: BASOPHILS % (AUTO) 0.4 % (0-1); EOSINOPHILS % (AUTO) 0 % (0-6); HEMOGLOBIN 14.8 g/dl (12.0-16.0); LYMPHOCYTES # (AUTO) 0.8 X10'3 (1.1-4.8); MEAN CORPUSCULAR HEMOGLOBIN 32.6 PG (27.0-31.0); MEAN CORPUSCULAR HGB CONC 33.5 g/dL (33.0-36.5); MEAN CORPUSCULAR VOLUME 97.3 FL (78-98); MEAN PLATELET VOLUME 8.2 FL (7.4-10.4); MONOCYTES % (AUTO) 8.6 % (2-12); NEUTROPHILS # (AUTO) 9.7 X10'3 (1.8-7.7); PLATELET COUNT 384 X10'3 (140-440); RED BLOOD COUNT 4.53 X10'6 (4.20-5.60); RED CELL DISTRIBUTION WIDTH 15.3 % (11.5-14.5); WHITE BLOOD COUNT 11.5 X10'3 (4.5-11.0)
[2022-12-16 08:02] LABS: CLARITY,URINE CLEAR (Clear); COLOR,URINE STRAW (Yellow); GLUCOSE, URINE >=1000 mg/dl (Neg); KETONES,URINE 15 mg/dl (Neg); LEUKOCYTE ESTERASE ,URINE NEGATIVE (Neg); NITRITES, URINE NEGATIVE (Neg); OCCULT BLOOD,URINE TRACE-INTACT (Neg); PROTEIN,URINE NEGATIVE (Neg); UROBILINOGEN,URINE 0.2 E.U/dL (0.2-1.0)
[2022-12-16 08:09] LABS: UA COLLECTION TYPE NON-SPECIFIED
[2022-12-16 08:14] LABS: BACTERIA,URINE FEW /HPF (Neg); MUCUS STRANDS FEW /LPF (Neg); RBC,URINE 0-2 /HPF (0-2); SQUAMOUS EPITHELIAL CELL,UR FEW /LPF (FEW); TRANSITIONAL EPI CELLS,URINE FEW /HPF; WBC,URINE 0-4 /HPF (0-4)
[2022-12-16 08:20] LABS: ALANINE AMINOTRANSFERASE 37 U/L (12-78); ALBUMIN 4.3 G/DL (3.4-5.0); ALBUMIN/GLOBULIN RATIO 1.2 (1.1-1.5); ALKALINE PHOSPHATASE 195 IU/L (46-116); ANION GAP 11 (8-16); ASPARTATE AMINO TRANSFERASE 19 U/L (10-37); BILIRUBIN,TOTAL 0.6 MG/DL (0.1-1.0); BLOOD UREA NITROGEN 9 MG/DL (7-18); BUN/CREATININE RATIO 6.9 (10.0-20.0); CALCIUM 9.4 MG/DL (8.5-10.1); CHLORIDE 87 MMOL/L (99-107); POTASSIUM 3.4 MMOL/L (3.5-5.1); SODIUM 130 MMOL/L (135-145); TOTAL CARBON DIOXIDE 32.5 MMOL/L (24-32); eGFR 44 ML/MIN
[2022-12-16 08:22] LABS: GLUCOSE 596 MG/DL (70-104)
[2022-12-16] MEDS ORDERED: pantoprazole 40mg IV 80 MG in normal saline 100ml IV soln 100 ML IV ONE (09:05)
[2022-12-16] MEDS ORDERED: ondansetron/PF 4mg/2ml inj IV ONE (09:05)
[2022-12-16] MEDS ORDERED: normal saline 1000ML IV soln IVB ONE (09:05)
[2022-12-16] MEDS ORDERED: fentaNYL/PF 50MCG/1 ML 2ML syringe IV ONE (09:05)
[2022-12-16] MEDS ORDERED: LORazepam 2 mg/ml vial IV ONE (09:05)
[2022-12-16] MEDS ORDERED: potassium Cl 40MEQ/1/2NS 520ml 520 ML IV ONE (09:15)
[2022-12-16] MEDS ORDERED: metoclopramide 5 mg/ml inj IV ONE (09:50)
[2022-12-16] MEDS ORDERED: POTASSIUM BICARB 20meq eff tab 20 MEQ TABLET.EFF PO ONE (11:05)
[2022-12-16] MEDS ORDERED: HYDROmorphone 1 mg/ml syringe IV ONE (11:05)
[2022-12-16] MEDS ORDERED: insulin regular, human 10 units/0.1 ml syringe IV ONE (13:00)
[2022-12-16] MEDS ORDERED: magnesium 2GM in 50ml NS 50 ML IV PRN (14:40)
[2022-12-16] MEDS ORDERED: diphenhydrAMINE 50 mg/ml inj IV PRN (14:40)
[2022-12-16] MEDS ORDERED: ondansetron 4mg rapidly disintigrating tab PO PRN (14:40)
[2022-12-16] MEDS ORDERED: magnesium 4gm in 100ml NS 100 ML IV PRN (14:40)
[2022-12-16] MEDS ORDERED: potassium Cl 20 mEq SR tablet PO PRN ×2 (14:40)
[2022-12-16] MEDS ORDERED: diphenhydrAMINE 25mg capsule PO PRN (14:40)
[2022-12-16] MEDS ORDERED: potassium Cl 40MEQ/1/2NS 520ml 520 ML IV PRN (14:40)
[2022-12-16] MEDS ORDERED: magnesium Cl slow-release 64mg tablet PO PRN (14:40)
[2022-12-16] MEDS ORDERED: morphine 2 MG/ML inj. syringe IV PRN ×2 (14:40)
[2022-12-16] MEDS ORDERED: acetaminophen 650mg rectal suppository RC PRN (14:40)
[2022-12-16] MEDS ORDERED: HYDROcodone/acetaminophen 5mg/325mg tablet PO PRN (14:40)
[2022-12-16] MEDS ORDERED: HYDROcodone/acetaminophen 10/325mg tab PO PRN (14:40)
[2022-12-16] MEDS ORDERED: acetaminophen 325mg tablet PO PRN ×2 (14:40)
[2022-12-16] MEDS ORDERED: ondansetron/PF 4mg/2ml inj IV PRN (14:40)
[2022-12-16] MEDS ORDERED: SUCR1ORA15 PO (15:40)
[2022-12-16] MEDS ORDERED: RIFA550T PO (15:40)
[2022-12-16] MEDS ORDERED: METO10TA3 PO (15:40)
[2022-12-16] MEDS ORDERED: non-formulary drug (Naloxone HCl (Narcan) 1 SPRAYS) BOTHNARES PRN (15:45)
[2022-12-16] MEDS ORDERED: HYDR2TAB7 PO (15:46)
[2022-12-16] MEDS ORDERED: dextrose 50%-water 50ml dispensing syringe IV PRN ×2 (15:55)
[2022-12-16] MEDS ORDERED: glucagon, human recombinant 1mg kit SUBCUT PRN (15:55)
[2022-12-16] MEDS ORDERED: HYDROmorphone 2mg tablet PO PRN (15:55)
[2022-12-16] MEDS ORDERED: insulin Lispro (HumaLOG) vial - multi-dose SQ SCH (15:55)
[2022-12-16] MEDS ORDERED: MESSAGE TO PHARMACY PO ONE (15:55)
[2022-12-16] MEDS ORDERED: DEXTROSE 15 GM of carb/4 tabs (each vial/BOTTLE has 4 tablets) PO PRN ×2 (15:55)
[2022-12-16] MEDS: normal saline 1000ml 1,000 ML IV SCH ×2 (16:38→22:37)
[2022-12-16] MEDS: metoclopramide 10mg tablet PO SCH ×3 (17:00→21:35)
[2022-12-16 17:02] LABS: ALBUMIN 3.3 G/DL (3.4-5.0); ANION GAP 10 (8-16); BLOOD UREA NITROGEN 7 MG/DL (7-18); BUN/CREATININE RATIO 7.9 (10.0-20.0); CHLORIDE 93 MMOL/L (99-107); CREATININE 0.89 MG/DL (0.40-0.90); GLUCOSE 421 MG/DL (70-104); POTASSIUM 4.8 MMOL/L (3.5-5.1); SODIUM 129 MMOL/L (135-145); TOTAL CARBON DIOXIDE 26.3 MMOL/L (24-32); eGFR 69 ML/MIN
[2022-12-16] MEDS: oxyCODONE IR 5mg (immed. release) tablet PO PRN ×2 (17:44→22:36)
--- NOTE | 2022-12-16 18:47 | NUR ---
STERILE DRSG APPLIED TO GROSHONG ON RIGHT SHIFT CHEST UNDER STERILE PROCEDURE. PT. TOLERATED WELL.
--- NOTE | 2022-12-16 19:32 | NUR ---
PAGER ID: [phone] MESSAGE: Reg: Svetlana Steinberg [id number] New admit. N/V Hyperglycemia. 02/09 pain abdo/back. Okay for Dilaudid? Oxy did not work. Thanks Izabela [phone]
[2022-12-16 20:00] VITALS: BP 139/81
[2022-12-16] MEDS ORDERED: enoxaparin 40mg/0.4ml syringe SQ SCH (20:00)
[2022-12-16] MEDS: BUPRENORPHINE HCL 2 MG SL SCH (20:08)
[2022-12-16] MEDS: SUCRALFATE PO SCH (20:08)
[2022-12-16] MEDS ORDERED: insulin glargine (Lantus) pen - multi-dose SQ SCH (21:00)
[2022-12-16] MEDS: LIPASE/PROTEASE/AMYLASE 10,500 units CAPSULE.DR PO SCH (21:35)
[2022-12-16] MEDS: rifaximin 550mg tablet PO SCH (21:35)
[2022-12-16] MEDS: apixaban 5mg tablet PO SCH (21:35)
[2022-12-16 22:00] VITALS: BP 162/93
--- NOTE | 2022-12-16 22:00 | NUR ---
As per nsg order, we're not to change pts pain medications. Addendum: 12/16/22 at 2222 by Izabela Maria RN Amended: Links added.
[2022-12-16] MEDS: carBAMazepine Ext. Release 200 MG TAB.ER.12H PO SCH (22:36)
[2022-12-17 02:00] VITALS: BP 174/73
[2022-12-17] MEDS: oxyCODONE IR 5mg (immed. release) tablet PO PRN ×2 (02:19→08:05)
[2022-12-17] MEDS: normal saline 1000ml 1,000 ML IV SCH (04:49)
--- NOTE | 2022-12-17 06:28 | NUR ---
Problems reprioritized. Patient report given, questions answered & plan of care reviewed with Janee WATTERS. Addendum: 12/17/22 at 0629 by Izabela Maria RN Amended: Links added.
--- NOTE | 2022-12-17 06:34 | NUR ---
Patient in room PCU 3023. I have received report from Izabela PEREZ and had the opportunity to ask questions and assume patient care.
[2022-12-17 06:39] LABS: BASOPHILS # (AUTO) 0.1 X10'3 (0-0.2); BASOPHILS % (AUTO) 1.3 % (0-1); EOSINOPHILS # (AUTO) 0.1 X10'3 (0-0.9); EOSINOPHILS % (AUTO) 0.5 % (0-6); HEMATOCRIT 37.1 % (35.0-45.0); HEMOGLOBIN 12.4 g/dl (12.0-16.0); LYMPHOCYTES # (AUTO) 2.2 X10'3 (1.1-4.8); LYMPHOCYTES % (AUTO) 21.3 % (21-51); MEAN CORPUSCULAR HEMOGLOBIN 32.4 PG (27.0-31.0); MEAN CORPUSCULAR HGB CONC 33.5 g/dL (33.0-36.5); MEAN CORPUSCULAR VOLUME 96.8 FL (78-98); MEAN PLATELET VOLUME 8.6 FL (7.4-10.4); MONOCYTES # (AUTO) 1.1 X10'3 (0-0.9); MONOCYTES % (AUTO) 10.3 % (2-12); NEUTROPHILS % (AUTO) 66.6 % (42-75); PLATELET COUNT 315 X10'3 (140-440); RED BLOOD COUNT 3.84 X10'6 (4.20-5.60); RED CELL DISTRIBUTION WIDTH 14.9 % (11.5-14.5); WHITE BLOOD COUNT 10.5 X10'3 (4.5-11.0)
[2022-12-17 06:56] LABS: ALANINE AMINOTRANSFERASE 28 U/L (12-78); ALBUMIN 3.4 G/DL (3.4-5.0); ALBUMIN/GLOBULIN RATIO 1.1 (1.1-1.5); ALKALINE PHOSPHATASE 151 IU/L (46-116); ANION GAP 12 (8-16); ASPARTATE AMINO TRANSFERASE 16 U/L (10-37); BILIRUBIN,TOTAL 0.5 MG/DL (0.1-1.0); BLOOD UREA NITROGEN 3 MG/DL (7-18); BUN/CREATININE RATIO 4.6 (10.0-20.0); CALCIUM 8.8 MG/DL (8.5-10.1); CHLORIDE 95 MMOL/L (99-107); CREATININE 0.65 MG/DL (0.40-0.90); GLUCOSE 152 MG/DL (70-104); POTASSIUM 3.3 MMOL/L (3.5-5.1); SODIUM 132 MMOL/L (135-145); TOTAL CARBON DIOXIDE 25.4 MMOL/L (24-32); TOTAL PROTEIN 6.4 G/DL (6.4-8.2); eGFR > 90 ML/MIN
[2022-12-17 07:00] VITALS: BP 132/72
[2022-12-17] MEDS: SUCRALFATE PO SCH (08:00)
[2022-12-17] MEDS: BUPRENORPHINE HCL 2 MG SL SCH (08:00)
[2022-12-17] MEDS: LIPASE/PROTEASE/AMYLASE 10,500 units CAPSULE.DR PO SCH (08:00)
[2022-12-17] MEDS ORDERED: FLUoxetine 20mg capsule PO SCH (08:00)
[2022-12-17] MEDS: rifaximin 550mg tablet PO SCH (08:01)
[2022-12-17] MEDS: metoclopramide 10mg tablet PO SCH (08:01)
[2022-12-17] MEDS: carBAMazepine Ext. Release 200 MG TAB.ER.12H PO SCH (08:03)
[2022-12-17] MEDS: apixaban 5mg tablet PO SCH (08:04)
--- NOTE | 2022-12-17 10:00 | NUR ---
TPN consult: Pt admit for reported emesis x 3 days. Pt chronically on TPN d/t h/o Whipple procedure though RD continually recommends jejunal feedings IF within pt long-term POC given functional gut. Per RD note 11/13/22 "Pt hx GJ tube tolerating EN October 2020 though GJ removed later that month per EMR". TPN recommendations have been d/w clinical pharmacist. Pending documentation of PO intake on clear liquid diet. LBM 12/16 per EMR. Will continue to follow closely. Recommendations: 1. Continuous TPN per MD using 2:1 Clinimix-E 11/19 at 65 mL/hr goal with additional 100 mL 20% ILE to run for 12 hours daily at 8.33 mL/hr. To provide 1560 mL volume/day, 78 g AA, 312 g dext (4.16 mg/kg/min GIR), and 1573 kcal 2. Advance to carb controlled diet as medically indicated; resume pancreatic enzymes with meals 3. TG/PALB q Monday/ 4. Daily scaled wts; monitor need to adjust recs once a scaled wt is obtained 5. Consider jejunal feedings IF within pt long-term POC given functional gut 6. Bowel care per rx Addendum: 12/17/22 at [address] Amended: Links added.
[2022-12-17] MEDS ORDERED: sucralfate 1 gm tablet PO SCH ×2 (10:21)
--- NOTE | 2022-12-17 11:08 | NUR ---
Patient left A after discussing care with Dr Bowens. She took all belongings. IV's and tele DCed and tele monitor returned to [facility].
== END 2022-12-17 11:08 | disposition left against medical advice (07) | DRG 420 ==
LOC: ER 06:49 → ED HOLD 15:00 → PCU 3S 19:05
PROVIDERS: ADMIT Internal Medicine; ATTEND Internal Medicine
DX: E11.65 Type 2 diabetes mellitus with hyperglycemia (principal); E87.6 Hypokalemia; F32.A Depression, unspecified; G43.909 Migraine, unspecified, not intractable, without status migrainosus; F12.90 Cannabis use, unspecified, uncomplicated; M54.9 Dorsalgia, unspecified; G89.29 Other chronic pain; J45.909 Unspecified asthma, uncomplicated; T38.3X6A Underdosing of insulin and oral hypoglycemic [antidiabetic] drugs, initial encounter; Z53.29 Procedure and treatment not carried out because of patient's decision for other reasons; Z88.5 Allergy status to narcotic agent; Z90.710 Acquired absence of both cervix and uterus; Z90.81 Acquired absence of spleen; Z91.128 Patient's intentional underdosing of medication regimen for other reason; Z90.49 Acquired absence of other specified parts of digestive tract; Z56.0 Unemployment, unspecified; Z88.1 Allergy status to other antibiotic agents; Z79.899 Other long term (current) drug therapy; Z79.4 Long term (current) use of insulin; Y92.89 Other specified places as the place of occurrence of the external cause
CPT/HCPCS: 36415; 71045; 80048; 80053; 81001; 82948; 83605; 83880; 84145; 84484; 85025; 87040; 87081; 99285; C9113; G0378; J1170; J1815; J2060; J2405; J2765; J3010; J3480; J3490; J7030

== ENCOUNTER 2023-01-31 09:35 | Inpatient (IN) | payer MEDICAID ==
[~2023-01-31] VITALS: Ht 167.6 cm; Wt 50.0 kg
[~2023-01-31 09:35] MED LIST changes: +DIPH-423 PO; -ERGO500041 PO; +MULT-271; +ONDA8TAB13 PO; +PANT-47 PO; +SUMA50TA PO; +[UNRECOGNIZED DRUG - OTHER] PO
--- NOTE | 2023-01-31 10:06 | NUR ---
NOT IN LOBBY.
[2023-01-31] MEDS ORDERED: normal saline 1000ML IV soln IVB ONE (10:20)
[2023-01-31] MEDS ORDERED: ondansetron/PF 4mg/2ml inj IV ONE (10:20)
[2023-01-31] MEDS ORDERED: famotidine/PF 10 mg/ml inj IV ONE (10:20)
[2023-01-31 10:47] LABS: BASOPHILS % (AUTO) 0.3 % (0-1); EOSINOPHILS # (AUTO) 0.1 X10'3 (0-0.9); EOSINOPHILS % (AUTO) 0.4 % (0-6); HEMATOCRIT 47.4 % (35.0-45.0); HEMOGLOBIN 15.6 g/dl (12.0-16.0); LYMPHOCYTES # (AUTO) 0.6 X10'3 (1.1-4.8); LYMPHOCYTES % (AUTO) 3.9 % (21-51); MEAN CORPUSCULAR HEMOGLOBIN 33.2 PG (27.0-31.0); MEAN CORPUSCULAR VOLUME 100.6 FL (78-98); MEAN PLATELET VOLUME 8.1 FL (7.4-10.4); MONOCYTES # (AUTO) 0.8 X10'3 (0-0.9); MONOCYTES % (AUTO) 5.2 % (2-12); NEUTROPHILS # (AUTO) 12.9 X10'3 (1.8-7.7); NEUTROPHILS % (AUTO) 90.2 % (42-75); PLATELET COUNT 455 X10'3 (140-440); RED BLOOD COUNT 4.71 X10'6 (4.20-5.60); WHITE BLOOD COUNT 14.3 X10'3 (4.5-11.0)
[2023-01-31 10:55] LABS: URINE HCG NEGATIVE (NEG)
[2023-01-31 11:05] LABS: CLARITY,URINE CLEAR (Clear); COLOR,URINE STRAW (Yellow); GLUCOSE, URINE >=1000 mg/dl (Neg); KETONES,URINE >=80 mg/dl (Neg); LEUKOCYTE ESTERASE ,URINE NEGATIVE (Neg); NITRITES, URINE NEGATIVE (Neg); OCCULT BLOOD,URINE SMALL (Neg); PROTEIN,URINE NEGATIVE (Neg); UROBILINOGEN,URINE 0.2 E.U/dL (0.2-1.0)
[2023-01-31 11:05] LABS: ALANINE AMINOTRANSFERASE 25 U/L (12-78); ALBUMIN 4.6 G/DL (3.4-5.0); ALBUMIN/GLOBULIN RATIO 1.2 (1.1-1.5); ALKALINE PHOSPHATASE 175 IU/L (46-116); ANION GAP 26 (8-16); ASPARTATE AMINO TRANSFERASE 12 U/L (10-37); BILIRUBIN,TOTAL 0.6 MG/DL (0.1-1.0); BLOOD UREA NITROGEN 28 MG/DL (7-18); BUN/CREATININE RATIO 16.6 (10.0-20.0); CALCIUM 10.5 MG/DL (8.5-10.1); CHLORIDE 89 MMOL/L (99-107); CREATININE 1.69 MG/DL (0.40-0.90); MAGNESIUM 2.7 MG/DL (1.5-2.4); POTASSIUM 4.4 MMOL/L (3.5-5.1); SODIUM 128 MMOL/L (135-145); TOTAL PROTEIN 8.6 G/DL (6.4-8.2); eGFR 33 ML/MIN
[2023-01-31 11:10] LABS: LIPASE < 50 U/L (73-393)
[2023-01-31 11:15] LABS: GLUCOSE 576 MG/DL (70-104)
[2023-01-31 11:16] LABS: TOTAL CARBON DIOXIDE 12.7 MMOL/L (24-32)
[2023-01-31 11:24] LABS: UA COLLECTION TYPE CLN CATCH MIDSTREAM
[2023-01-31 11:26] LABS: BACTERIA,URINE FEW /HPF (Neg); SQUAMOUS EPITHELIAL CELL,UR MODERATE /LPF (FEW)
[2023-01-31 11:27] LABS: RBC,URINE 0-2 /HPF (0-2); TRANSITIONAL EPI CELLS,URINE FEW /HPF; YEAST FEW /HPF (NEGATIVE)
[2023-01-31] MEDS ORDERED: insulin regular, human 10 units/0.1 ml syringe IV PRN ×2 (12:00→14:15)
[2023-01-31] MEDS ORDERED: sodium bicarbonate (8.4%) inj. 50 MEQ in dextrose 5% water 500ml 250 ML IV PRN ×2 (12:00→14:15)
[2023-01-31] MEDS ORDERED: potassium Cl 20 mEq SR tablet PO PRN ×5 (12:00→14:15)
[2023-01-31] MEDS ORDERED: potassium CL 20mEq in D5-1/2NS 1,000 ML IV PRN ×2 (12:00→14:15)
[2023-01-31] MEDS ORDERED: sodium bicarbonate (8.4%) inj. 100 MEQ in dextrose 5% water 500ml 500 ML IV PRN ×2 (12:00→14:15)
[2023-01-31] MEDS ORDERED: piperacillin/tazo 3.375gm/50ml 50 ML IV ONE (12:00)
[2023-01-31] MEDS ORDERED: potassium Cl 40MEQ/1/2NS 520ml 520 ML IV PRN ×5 (12:00→14:15)
[2023-01-31] MEDS: normal saline 1000ml 1,000 ML IV SCH ×7 (12:30→20:00)
[2023-01-31] MEDS ORDERED: HYDROmorphone inj. 0.5 MG/0.5 ML DISP.SYRIN IV ONE (12:35)
[2023-01-31] MEDS: Insulin Reg/NS 100units/100mL 100 ML IV SCH (12:41)
[2023-01-31] MEDS ORDERED: ondansetron/PF 4mg/2ml inj IV PRN (14:15)
[2023-01-31] MEDS ORDERED: acetaminophen 325mg tablet PO PRN ×2 (14:15)
[2023-01-31] MEDS ORDERED: normal saline 1000ml 1,000 ML IV SCH (14:15)
[2023-01-31] MEDS ORDERED: mag hydrox/Alum hydrox/simeth 30ml oral suspension PO PRN (14:15)
[2023-01-31] MEDS ORDERED: sodium phosphate inj. 15 MMOL in dextrose 5%-water 250 ML IV PRN (14:15)
[2023-01-31] MEDS ORDERED: magnesium hydroxide 30ml (MOM) UD suspension PO PRN (14:15)
[2023-01-31] MEDS ORDERED: magnesium Cl slow-release 64mg tablet PO PRN (14:15)
[2023-01-31] MEDS ORDERED: magnesium 4gm in 100ml NS 100 ML IV PRN (14:15)
[2023-01-31] MEDS ORDERED: HYDROmorphone/PF 0.2 MG/ML SYRINGE IV PRN (14:15)
[2023-01-31] MEDS ORDERED: magnesium 2GM in 50ml NS 50 ML IV PRN (14:15)
[2023-01-31] MEDS ORDERED: sodium phosphate inj. 30 MMOL in dextrose 5%-water 250 ML IV PRN (14:15)
[2023-01-31] MEDS ORDERED: HYDROcodone/acetaminophen 5mg/325mg tablet PO PRN (14:15)
[2023-01-31] MEDS ORDERED: Insulin Reg/NS 100units/100mL 100 ML IV SCH (14:15)
[2023-01-31] MEDS ORDERED: Neutra Phos packet PO PRN (14:15)
[2023-01-31] MEDS ORDERED: HYDROcodone/acetaminophen 10/325mg tab PO PRN (14:15)
[2023-01-31] MEDS: HYDROmorphone inj. 0.5 MG/0.5 ML DISP.SYRIN IV PRN ×2 (14:40→18:58)
[2023-01-31 15:48] LABS: ALBUMIN 3.3 G/DL (3.4-5.0); ANION GAP 17 (8-16); BLOOD UREA NITROGEN 25 MG/DL (7-18); BUN/CREATININE RATIO 19.4 (10.0-20.0); CALCIUM 8.4 MG/DL (8.5-10.1); CHLORIDE 104 MMOL/L (99-107); CREATININE 1.29 MG/DL (0.40-0.90); GLUCOSE 364 MG/DL (70-104); PHOSPHORUS 2.8 MG/DL (2.3-4.5); POTASSIUM 3.4 MMOL/L (3.5-5.1); SODIUM 136 MMOL/L (135-145); TOTAL CARBON DIOXIDE 15.5 MMOL/L (24-32); eGFR 45 ML/MIN
[2023-01-31] MEDS ORDERED: BUPR2TAB11 SL (15:49)
[2023-01-31] MEDS ORDERED: OXYC10TA47 PO (15:49)
[2023-01-31] MEDS ORDERED: SUCR1ORA15 PO (15:49)
[2023-01-31] MEDS ORDERED: METO10TA3 PO (15:49)
[2023-01-31] MEDS ORDERED: CARB200T2 PO (15:50)
[2023-01-31] MEDS ORDERED: PANT40TA54 PO (15:50)
[2023-01-31] MEDS ORDERED: FLUO-1 PO (15:50)
[2023-01-31] MEDS ORDERED: APIX5TAB3 PO (15:51)
[2023-01-31] MEDS ORDERED: DIPH25TA62 PO (15:52)
[2023-01-31] MEDS: apixaban 5mg tablet PO SCH (18:36)
[2023-01-31 19:03] LABS: BASOPHILS # (AUTO) 0.1 X10'3 (0-0.2); BASOPHILS % (AUTO) 0.5 % (0-1); EOSINOPHILS % (AUTO) 0.1 % (0-6); HEMOGLOBIN 13.7 g/dl (12.0-16.0); LYMPHOCYTES # (AUTO) 2.1 X10'3 (1.1-4.8); LYMPHOCYTES % (AUTO) 15.3 % (21-51); MEAN CORPUSCULAR HEMOGLOBIN 32.3 PG (27.0-31.0); MEAN CORPUSCULAR HGB CONC 32.6 g/dL (33.0-36.5); MEAN CORPUSCULAR VOLUME 99.1 FL (78-98); MEAN PLATELET VOLUME 7.5 FL (7.4-10.4); MONOCYTES # (AUTO) 1.4 X10'3 (0-0.9); MONOCYTES % (AUTO) 10.4 % (2-12); NEUTROPHILS # (AUTO) 10.1 X10'3 (1.8-7.7); NEUTROPHILS % (AUTO) 73.7 % (42-75); PLATELET COUNT 392 X10'3 (140-440); RED BLOOD COUNT 4.24 X10'6 (4.20-5.60); RED CELL DISTRIBUTION WIDTH 15.5 % (11.5-14.5); WHITE BLOOD COUNT 13.6 X10'3 (4.5-11.0)
[2023-01-31 19:20] LABS: ALANINE AMINOTRANSFERASE 23 U/L (12-78); ALBUMIN 3.5 G/DL (3.4-5.0); ALBUMIN/GLOBULIN RATIO 1.1 (1.1-1.5); ALKALINE PHOSPHATASE 133 IU/L (46-116); ANION GAP 9 (8-16); ASPARTATE AMINO TRANSFERASE 17 U/L (10-37); BILIRUBIN,TOTAL 0.3 MG/DL (0.1-1.0); BLOOD UREA NITROGEN 23 MG/DL (7-18); BUN/CREATININE RATIO 18.1 (10.0-20.0); CARBAMAZEPINE (TEGRETOL) < 0.5 UG/ML (4.0-12.0); CHLORIDE 106 MMOL/L (99-107); CREATININE 1.27 MG/DL (0.40-0.90); GLUCOSE 233 MG/DL (70-104); MAGNESIUM 2.3 MG/DL (1.5-2.4); PHOSPHORUS 2.7 MG/DL (2.3-4.5); POTASSIUM 3.7 MMOL/L (3.5-5.1); SODIUM 138 MMOL/L (135-145); TOTAL CARBON DIOXIDE 22.8 MMOL/L (24-32); TOTAL PROTEIN 6.8 G/DL (6.4-8.2); eGFR 46 ML/MIN
[2023-01-31] MEDS: K and/or MAG REPLACEMENT MC SCH (20:00)
[2023-01-31] MEDS ORDERED: K and/or MAG REPLACEMENT MC SCH ×2 (20:00)
[2023-01-31] MEDS: docusate sod 100mg capsule PO SCH (20:41)
--- NOTE | 2023-01-31 21:05 | NUR ---
PT DOES NOT TYPICALLY TAKE FOOD ORALLY DUE TO CHRONIC NAUSEA. SHE HAS A PICC LINE THROUGH WHICH SHE TAKES TPN. TPN WILL NOT BE AVAILABLE UNTIL AT LEAST THE MORNING DUE TO DIETARY NOT BEING IN HOUSE AT THIS TIME. PER DR SUKHI DEAN TO D/C INSULIN DRIP, KEEP PT ON D5 1/2 NS WITH KCL DRIP, GIVE JUICE AND PLACE PT ON HYPERGLYCEMIA PROTOCOL
[2023-01-31] MEDS ORDERED: DEXTROSE 15 GM of carb/4 tabs (each vial/BOTTLE has 4 tablets) PO PRN ×2 (21:10)
[2023-01-31] MEDS ORDERED: MESSAGE TO PHARMACY PO ONE (21:10)
[2023-01-31] MEDS ORDERED: glucagon, human recombinant 1mg kit SUBCUT PRN (21:10)
[2023-01-31] MEDS ORDERED: dextrose 50%-water 50ml dispensing syringe IV PRN ×2 (21:10)
--- NOTE | 2023-01-31 21:20 | NUR ---
NO SUBQ INSULIN AT THIS TIME PT DOES NOT CURRENTLY MEET PROTOCOL WITH BG 166 AND ONLY INTAKE OF JUICE AND IV FLUIDS
--- NOTE | 2023-01-31 21:20 | NUR ---
Sadie rowan in [facility] - 01/31/23 at 2120 by NOREEN NO SUBQ INSULIN AT THIS TIME PER VERBAL OR
[2023-01-31 21:40] LABS: HEMOGLOBIN A1C 7.6 % (4.5-6.2)
--- NOTE | 2023-01-31 23:34 | NUR ---
CALLED DR ISBELL TO ADDRESS PTS BG OF 234. PER DR ISBELL NO MAINTANANCE NS AT THIS TIME, DECREASE D5 1/2NS WITH 20MEQ KCL TO 50 ML/HR AND RECHECK BLOOD SUGAR IN TWO HOURS
--- NOTE | 2023-01-31 23:35 | NUR ---
PER DR ISBELL DO NOT GIVE SUBQ INSULIN AT THIS TIME
--- NOTE | 2023-02-01 01:26 | NUR ---
NOTIFED DR ISBELL OF PTS BG [address]. PER DR ISBELL GIVE SUBQ INSULIN PER PROTOCOL, 8 UNITS
[2023-02-01] MEDS: insulin Lispro (HumaLOG) vial - multi-dose SQ SCH ×4 (01:31→21:20)
[2023-02-01] MEDS: HYDROmorphone inj. 0.5 MG/0.5 ML DISP.SYRIN IV PRN ×7 (01:40→23:53)
[2023-02-01] MEDS: normal saline 1000ml 1,000 ML IV SCH ×5 (03:57→16:00)
[2023-02-01 06:57] LABS: BASOPHILS # (AUTO) 0.1 X10'3 (0-0.2); BASOPHILS % (AUTO) 0.9 % (0-1); EOSINOPHILS % (AUTO) 0.1 % (0-6); HEMATOCRIT 40.1 % (35.0-45.0); HEMOGLOBIN 13.7 g/dl (12.0-16.0); LYMPHOCYTES # (AUTO) 1.8 X10'3 (1.1-4.8); LYMPHOCYTES % (AUTO) 13.3 % (21-51); MEAN CORPUSCULAR HEMOGLOBIN 33.4 PG (27.0-31.0); MEAN CORPUSCULAR HGB CONC 34.3 g/dL (33.0-36.5); MEAN CORPUSCULAR VOLUME 97.4 FL (78-98); MEAN PLATELET VOLUME 7.4 FL (7.4-10.4); MONOCYTES # (AUTO) 1.3 X10'3 (0-0.9); MONOCYTES % (AUTO) 9.7 % (2-12); NEUTROPHILS # (AUTO) 10.1 X10'3 (1.8-7.7); PLATELET COUNT 358 X10'3 (140-440); RED BLOOD COUNT 4.11 X10'6 (4.20-5.60); RED CELL DISTRIBUTION WIDTH 15.4 % (11.5-14.5); WHITE BLOOD COUNT 13.3 X10'3 (4.5-11.0)
[2023-02-01 07:48] LABS: ALBUMIN 3.3 G/DL (3.4-5.0); ANION GAP 14 (8-16); BLOOD UREA NITROGEN 14 MG/DL (7-18); BUN/CREATININE RATIO 14.1 (10.0-20.0); CALCIUM 8.6 MG/DL (8.5-10.1); CHLORIDE 101 MMOL/L (99-107); CREATININE 0.99 MG/DL (0.40-0.90); GLUCOSE 192 MG/DL (70-104); MAGNESIUM 2.1 MG/DL (1.5-2.4); PHOSPHORUS 2.2 MG/DL (2.3-4.5); POTASSIUM 3.6 MMOL/L (3.5-5.1); SODIUM 135 MMOL/L (135-145); TOTAL CARBON DIOXIDE 19.8 MMOL/L (24-32); eGFR 61 ML/MIN
[2023-02-01] MEDS: Insulin Reg/NS 100units/100mL 100 ML IV SCH (08:00)
[2023-02-01] MEDS: K and/or MAG REPLACEMENT MC SCH ×2 (08:00→20:00)
[2023-02-01] MEDS: apixaban 5mg tablet PO SCH (08:00)
--- NOTE | 2023-02-01 09:25 | NUR ---
TPN Consult: Pt admit DX DKA, pseudohyponatremia, acute on chronic kidney failure due to dehydration, and hx chronic pancreatitis s/p Whipple procedure, pancreatic islet cell transplant, and T1DM per EMR. A1C 7.6% consistent w/ 7.7% 08/2022 visit both down from prior 10.6% 03/2022 in EMR; DM diet ed not appropriate given PN dependence. Pt hx chronic TPN for pancreatitis despite having GJ placed October 2020 and tolerating EN at that time but GJ then removed later that month for "increased pain" per EMR. TPN to start today per MD; rec below. Pt would benefit from transition to jejunal feeds to optimize long-term nutrition status given hx if within POC. LBM large 01/28 per H&P. Will monitor for PN tolerance and further nutrition intervention needs this admit. Recommendations: 1. Continuous TPN per MD using 2:1 Clinimix-E 5/20 at 65mL/hr goal with separate 100mL 20% ILE to run for 12 hours daily at 8.33 mL/hr. To provide 1560mL volume/day, 78g AA, 312g DEX (4.16 mg/kg/min), and 1573 kcal 2. Advance to carb controlled diet as medically indicated; resume pancreatic enzymes once PO 3. TG/PALB q Monday/; daily scaled wt 4. Consider jejunal feedings for long-term nutrition needs given functional gut and hx tolerating October 2020 prior to GJ removal same month 5. IF EN; Osmolite 1.2 at 55ml/hr would provide 1320ml volume/day, 1584 kcals, 1082ml water, and 73g protein. 6. IF EN; additional water flush 75ml [id number] serum Na 7. Bowel care per rx Addendum: 02/01/23 at [address] Amended: Links added.
[2023-02-01] MEDS ORDERED: HYDROmorphone/PF 0.2 MG/ML SYRINGE IV PRN (09:30)
--- NOTE | 2023-02-01 09:46 | NUR ---
Report given to CHRIS Cortés, pt going to be [id number]
[2023-02-01] MEDS: carBAMazepine Ext. Release 200 MG TAB.ER.12H PO SCH (10:00)
[2023-02-01] MEDS: docusate sod 100mg capsule PO SCH ×2 (10:12→20:00)
[2023-02-01] MEDS: pantoprazole 40mg Tablet.DR PO SCH (10:13)
[2023-02-01] MEDS: FLUoxetine 20mg capsule PO SCH (10:13)
--- NOTE | 2023-02-01 10:33 | NUR ---
Patient in [facility]. I have received report from Dorys PEREZ and had the opportunity to ask questions and assume patient care.Pt settled into room, call light in reach. Appears very fatigued. Addendum: 02/01/23 at 1036 by Ashley Thompson RN Amended: Links added.
[2023-02-01 10:34] VITALS: BP 114/67; PULSE 59; RESP 18; TEMP 98.8; O2SAT 100
[2023-02-01 11:00] VITALS: BP 99/63; PULSE 64; RESP 14; RESP 18; TEMP 97.8; O2SAT 100; O2SAT 98
[2023-02-01] MEDS ORDERED: ZINC/COPPER/MANGANESE/SELENIUM 1 ML, chromic chloride inj. 10 MCG in AA 5%/CALCIUM/LYTE... IV SCH (11:10)
[2023-02-01] MEDS: MVI, adult No.4 with vit. K 10 ML in dextrose 5% water 500ml 500 ML IV SCH ×2 (14:17)
[2023-02-01] MEDS: ZINC/COPPER/MANGANESE/SELENIUM 1 ML, chromic chloride inj. 10 MCG in AA 5%/CALCIUM/LYTE... IV SCH (14:18)
--- NOTE | 2023-02-01 14:42 | NUR ---
TPN started at 30 ml/Hr. BS 353. Pt started Insulin protocol at level 1 as she has no Pancrease. ths was discussed with museum technician.
[2023-02-01] MEDS: fat emulsion 20% inj. 100 ML IV SCH (15:37)
[2023-02-01 18:00] VITALS: BP 100/59; PULSE 57; RESP 18; TEMP 98; O2SAT 97
--- NOTE | 2023-02-01 18:34 | NUR ---
Patient in room U 3012. I have received report from Alia PEREZ and had the opportunity to ask questions and assume patient care. Addendum: 02/01/23 at 1835 by Ashley Thompson RN Amended: Links added.
[2023-02-01 20:00] VITALS: RESP 18; O2SAT 97
[2023-02-01] MEDS: insulin glargine (Lantus) pen - multi-dose SQ SCH (21:21)
[2023-02-01 22:00] VITALS: BP 99/63; PULSE 61; RESP 18; TEMP 98; O2SAT 97
--- NOTE | 2023-02-01 22:06 | NUR ---
Patient in room PCU 3012. I have received report from Ashley PEREZ and had the opportunity to ask questions and assume patient care. Ciara PEREZ/Alia PEREZ
[2023-02-02] VITALS (7 sets, daily range): BP systolic 90–96; BP diastolic 49–55; PULSE 51–58; RESP 12–16; TEMP 97.3–98.2; O2SAT 94–96
[2023-02-02] MEDS: HYDROmorphone inj. 0.5 MG/0.5 ML DISP.SYRIN IV PRN ×10 (00:51→23:48)
[2023-02-02] MEDS: insulin Lispro (HumaLOG) vial - multi-dose SQ SCH ×3 (03:03→20:34)
[2023-02-02] MEDS: Insulin Reg/NS 100units/100mL 100 ML IV SCH (04:00)
--- NOTE | 2023-02-02 06:21 | NUR ---
Patient in room PCU 3012. I have received report from Alia PEREZ and had the opportunity to ask questions and assume patient care. Pt awake and alert.Call light in reach. Addendum: 02/02/23 at 0625 by Ashley Thompson RN Amended: Links added.
--- NOTE | 2023-02-02 06:50 | NUR ---
DM Consult: Addressed; see prior RD note. Addendum: 02/02/23 at [address] Amended: Links added.
[2023-02-02 07:40] LABS: BASOPHILS # (AUTO) 0.1 X10'3 (0-0.2); EOSINOPHILS # (AUTO) 0.1 X10'3 (0-0.9)
[2023-02-02 07:43] LABS: BASOPHILS % (AUTO) 1.6 % (0-1); EOSINOPHILS % (AUTO) 1.3 % (0-6); HEMATOCRIT 35.1 % (35.0-45.0); HEMOGLOBIN 11.9 g/dl (12.0-16.0); LYMPHOCYTES # (AUTO) 2.9 X10'3 (1.1-4.8); LYMPHOCYTES % (AUTO) 43.6 % (21-51); MEAN CORPUSCULAR HEMOGLOBIN 33.5 PG (27.0-31.0); MEAN CORPUSCULAR VOLUME 98.6 FL (78-98); MEAN PLATELET VOLUME 7.7 FL (7.4-10.4); MONOCYTES # (AUTO) 0.8 X10'3 (0-0.9); MONOCYTES % (AUTO) 11.9 % (2-12); NEUTROPHILS # (AUTO) 2.8 X10'3 (1.8-7.7); NEUTROPHILS % (AUTO) 41.6 % (42-75); PLATELET COUNT 292 X10'3 (140-440); RED BLOOD COUNT 3.56 X10'6 (4.20-5.60); RED CELL DISTRIBUTION WIDTH 15.3 % (11.5-14.5); WHITE BLOOD COUNT 6.6 X10'3 (4.5-11.0)
[2023-02-02 07:47] LABS: ALBUMIN 2.9 G/DL (3.4-5.0); ANION GAP 6 (8-16); BLOOD UREA NITROGEN 10 MG/DL (7-18); BUN/CREATININE RATIO 14.9 (10.0-20.0); CALCIUM 8.5 MG/DL (8.5-10.1); CHLORIDE 101 MMOL/L (99-107); CREATININE 0.67 MG/DL (0.40-0.90); GLUCOSE 95 MG/DL (70-104); MAGNESIUM 2.2 MG/DL (1.5-2.4); POTASSIUM 3.2 MMOL/L (3.5-5.1); SODIUM 133 MMOL/L (135-145); TOTAL CARBON DIOXIDE 26.3 MMOL/L (24-32); eGFR > 90 ML/MIN
[2023-02-02] MEDS: fat emulsion 20% inj. 100 ML IV SCH (07:52)
[2023-02-02] MEDS: K and/or MAG REPLACEMENT MC SCH ×2 (08:00→20:40)
[2023-02-02] MEDS: pantoprazole 40mg Tablet.DR PO SCH (08:05)
[2023-02-02] MEDS: FLUoxetine 20mg capsule PO SCH (08:05)
[2023-02-02] MEDS: docusate sod 100mg capsule PO SCH ×2 (08:05→20:00)
[2023-02-02] MEDS: apixaban 5mg tablet PO SCH (08:06)
[2023-02-02] MEDS: carBAMazepine Ext. Release 200 MG TAB.ER.12H PO SCH (08:07)
[2023-02-02 08:30] LABS: PLATELET ESTIMATE NORMAL; POIKILOCYTOSIS 1+
[2023-02-02 08:33] LABS: ACANTHOCYTES 1+
[2023-02-02] MEDS: normal saline 1000ml 1,000 ML IV SCH ×2 (09:21→22:58)
[2023-02-02] MEDS: potassium Cl 20 mEq SR tablet PO PRN ×3 (11:24→20:39)
[2023-02-02] MEDS ORDERED: Dextrose 10%-water IV solution 1,000 ML IV PRN (15:10)
--- NOTE | 2023-02-02 18:00 | NUR ---
Patient in room PCU 3012. I have received report from Ashley PEREZ and had the opportunity to ask questions and assume patient care.
--- NOTE | 2023-02-02 18:19 | NUR ---
Problems reprioritized. Patient report given, questions answered & plan of care reviewed with Alia PEREZ. Pt resting. Call light in reach. Addendum: 02/02/23 at 1820 by Ashley Thompson RN Amended: Links added.
--- NOTE | 2023-02-02 18:24 | NUR ---
Patient in room PCU 3012. I have received report from Ashley PEREZ and had the opportunity to ask questions and assume patient care. Ciara PEREZ/Alia PEREZ
[2023-02-02] MEDS: insulin glargine (Lantus) pen - multi-dose SQ SCH (21:24)
[2023-02-03] MEDS: Insulin Reg/NS 100units/100mL 100 ML IV SCH
[2023-02-03 02:00] VITALS: BP 97/53; PULSE 60; RESP 14; TEMP 97.6; O2SAT 98
[2023-02-03] MEDS: HYDROmorphone inj. 0.5 MG/0.5 ML DISP.SYRIN IV PRN ×6 (02:16→13:11)
[2023-02-03] MEDS: insulin Lispro (HumaLOG) vial - multi-dose SQ SCH ×2 (02:20→09:02)
[2023-02-03 06:00] VITALS: BP 101/55; PULSE 62; RESP 14; TEMP 98; O2SAT 99
--- NOTE | 2023-02-03 06:10 | NUR ---
Patient in room [facility] 3012. I have received report from Ashley PEREZ and had the opportunity to ask questions and assume patient care. Ciara PEREZ/Alia PEREZ Addendum: 02/03/23 at 0625 by Ciara Hanna RN Problems reprioritized. Patient report given, questions answered & plan of care reviewed with Ashley PEREZ. Ciara PEREZ/Alia PEREZ
--- NOTE | 2023-02-03 06:29 | NUR ---
Patient in room PCU 3012. I have received report from Alia PEREZ and had the opportunity to ask questions and assume patient care.Pt resting. awaiting time for Jannyid. Call light in reach. Addendum: 02/03/23 at 0630 by Ashley Thompson RN Amended: Links added.
[2023-02-03 07:12] LABS: BASOPHILS # (AUTO) 0.1 X10'3 (0-0.2); BASOPHILS % (AUTO) 0.8 % (0-1); EOSINOPHILS # (AUTO) 0.2 X10'3 (0-0.9); EOSINOPHILS % (AUTO) 2.3 % (0-6); HEMATOCRIT 35.1 % (35.0-45.0); HEMOGLOBIN 11.7 g/dl (12.0-16.0); LYMPHOCYTES # (AUTO) 2.1 X10'3 (1.1-4.8); LYMPHOCYTES % (AUTO) 20.9 % (21-51); MEAN CORPUSCULAR HEMOGLOBIN 32.8 PG (27.0-31.0); MEAN CORPUSCULAR HGB CONC 33.2 g/dL (33.0-36.5); MEAN CORPUSCULAR VOLUME 98.6 FL (78-98); MEAN PLATELET VOLUME 8.2 FL (7.4-10.4); MONOCYTES % (AUTO) 9.6 % (2-12); NEUTROPHILS # (AUTO) 6.6 X10'3 (1.8-7.7); NEUTROPHILS % (AUTO) 66.4 % (42-75); PLATELET COUNT 271 X10'3 (140-440); RED BLOOD COUNT 3.56 X10'6 (4.20-5.60); RED CELL DISTRIBUTION WIDTH 15.2 % (11.5-14.5)
[2023-02-03 07:45] VITALS: RESP 14; O2SAT 99
[2023-02-03] MEDS ORDERED: apixaban 5mg tablet PO SCH (07:50)
[2023-02-03 07:54] LABS: ALBUMIN 2.6 G/DL (3.4-5.0); ANION GAP 6 (8-16); BLOOD UREA NITROGEN 10 MG/DL (7-18); CALCIUM 8.2 MG/DL (8.5-10.1); CHLORIDE 105 MMOL/L (99-107); GLUCOSE 134 MG/DL (70-104); MAGNESIUM 1.9 MG/DL (1.5-2.4); POTASSIUM 3.7 MMOL/L (3.5-5.1); SODIUM 137 MMOL/L (135-145); eGFR > 90 ML/MIN
[2023-02-03] MEDS: K and/or MAG REPLACEMENT MC SCH (08:00)
[2023-02-03] MEDS: MVI, adult No.4 with vit. K 10 ML in dextrose 5% water 500ml 500 ML IV SCH ×2 (08:25)
[2023-02-03] MEDS ORDERED: sodium phosphate inj. 15 MMOL in dextrose 5%-water 250 ML IV ONE (08:30)
[2023-02-03] MEDS: fat emulsion 20% inj. 100 ML IV SCH (08:31)
[2023-02-03] MEDS: FLUoxetine 20mg capsule PO SCH (08:34)
[2023-02-03] MEDS: pantoprazole 40mg Tablet.DR PO SCH (08:34)
[2023-02-03] MEDS: docusate sod 100mg capsule PO SCH (08:35)
[2023-02-03] MEDS: carBAMazepine Ext. Release 200 MG TAB.ER.12H PO SCH ×2 (08:36→12:52)
[2023-02-03] MEDS: ZINC/COPPER/MANGANESE/SELENIUM 1 ML, chromic chloride inj. 10 MCG in AA 5%/CALCIUM/LYTE... IV SCH (10:00)
[2023-02-03 11:00] VITALS: BP 132/67; PULSE 58; RESP 16; TEMP 97.8; O2SAT 100
[2023-02-03 13:11] VITALS: RESP 15
--- NOTE | 2023-02-03 13:30 | NUR ---
all written and verbal orders for D/C given. All questions answered. pt stated she had all belongings. home with . Addendum: 02/03/23 at 1415 by Ashley Thompson RN Amended: Links added.
[2023-02-03] MEDS ORDERED: ZINC/COPPER/MANGANESE/SELENIUM 1 ML, chromic chloride inj. 10 MCG in AA 5%/CALCIUM/LYTE... IV SCH (14:00)
== END 2023-02-03 13:25 | disposition home or self-care (01) | DRG 420 ==
LOC: ER 09:35 → ED HOLD 14:20 → PCU 3S 02-01 10:25
PROVIDERS: ADMIT Internal Medicine; ATTEND Internal Medicine
DX: E11.10 Type 2 diabetes mellitus with ketoacidosis without coma (principal); N17.0 Acute kidney failure with tubular necrosis; E43 Unspecified severe protein-calorie malnutrition; F32.A Depression, unspecified; G43.909 Migraine, unspecified, not intractable, without status migrainosus; F12.90 Cannabis use, unspecified, uncomplicated; F17.210 Nicotine dependence, cigarettes, uncomplicated; N18.9 Chronic kidney disease, unspecified; E11.22 Type 2 diabetes mellitus with diabetic chronic kidney disease; K86.89 Other specified diseases of pancreas; G40.909 Epilepsy, unspecified, not intractable, without status epilepticus; G89.4 Chronic pain syndrome; M54.9 Dorsalgia, unspecified; E86.0 Dehydration; J45.909 Unspecified asthma, uncomplicated; Z87.11 Personal history of peptic ulcer disease; Z90.710 Acquired absence of both cervix and uterus; Z90.81 Acquired absence of spleen; Z56.0 Unemployment, unspecified; Z88.5 Allergy status to narcotic agent; Z79.899 Other long term (current) drug therapy; Z68.1 Body mass index [BMI] 19.9 or less, adult; Z90.49 Acquired absence of other specified parts of digestive tract
CPT/HCPCS: 36415; 71045; 74176; 80048; 80053; 80156; 81001; 81025; 82800; 82948; 83036; 83605; 83690; 83735; 84100; 84145; 85008; 85025; 87040; 87081; 87088; 93005; 99285; A4615; G0378; J1170; J1815; J2405; J2543; J3480; J3490; J7030; J7060

== ENCOUNTER 2023-02-27 14:28 | Emergency (ER) | payer MEDICAID ==
[~2023-02-27] VITALS: Ht 167.6 cm; Wt 50.6 kg
[~2023-02-27 14:28] MED LIST changes: -DIPH-423 PO; +DIPH25TA62 PO; +FLUO-1 PO; -FLUO40CA PO; -INSU100I31 SQ; -INSU100V11 SQ; -LIPA1CAP18 PO; +METO10TA3 PO; -MULT-271; -NALO4SPR BOTHNARES; -ONDA8TAB13 PO; -PANT-47 PO; +PANT40TA54 PO; +SUCR1ORA15 PO; -SUMA50TA PO; -[UNRECOGNIZED DRUG - OTHER] PO
[2023-02-27 15:15] LABS: URINE HCG NEGATIVE (NEG)
[2023-02-27 15:23] LABS: BASOPHILS # (AUTO) 0.1 X10'3 (0-0.2); BASOPHILS % (AUTO) 1.2 % (0-1); EOSINOPHILS # (AUTO) 0.1 X10'3 (0-0.9); EOSINOPHILS % (AUTO) 0.8 % (0-6); HEMATOCRIT 46.1 % (35.0-45.0); HEMOGLOBIN 15.6 g/dl (12.0-16.0); LYMPHOCYTES # (AUTO) 1.5 X10'3 (1.1-4.8); LYMPHOCYTES % (AUTO) 16.8 % (21-51); MEAN CORPUSCULAR HEMOGLOBIN 33.6 PG (27.0-31.0); MEAN CORPUSCULAR HGB CONC 33.9 g/dL (33.0-36.5); MEAN CORPUSCULAR VOLUME 99.1 FL (78-98); MEAN PLATELET VOLUME 8.1 FL (7.4-10.4); MONOCYTES # (AUTO) 0.6 X10'3 (0-0.9); MONOCYTES % (AUTO) 6.8 % (2-12); NEUTROPHILS # (AUTO) 6.8 X10'3 (1.8-7.7); NEUTROPHILS % (AUTO) 74.4 % (42-75); PLATELET COUNT 362 X10'3 (140-440); RED BLOOD COUNT 4.65 X10'6 (4.20-5.60); RED CELL DISTRIBUTION WIDTH 15.4 % (11.5-14.5); WHITE BLOOD COUNT 9.1 X10'3 (4.5-11.0)
[2023-02-27 15:24] LABS: BILIRUBIN,URINE NEGATIVE (Neg); CLARITY,URINE CLOUDY (Clear); COLOR,URINE YELLOW (Yellow); GLUCOSE, URINE >=1000 mg/dl (Neg); KETONES,URINE NEGATIVE (Neg); LEUKOCYTE ESTERASE ,URINE NEGATIVE (Neg); NITRITES, URINE NEGATIVE (Neg); OCCULT BLOOD,URINE TRACE-INTACT (Neg); PROTEIN,URINE NEGATIVE (Neg); UROBILINOGEN,URINE 0.2 E.U/dL (0.2-1.0)
[2023-02-27 15:27] LABS: UA COLLECTION TYPE CLN CATCH MIDSTREAM
[2023-02-27 15:29] LABS: AMORPHOUS PHOSPHATES 3+
[2023-02-27 15:31] LABS: BACTERIA,URINE FEW /HPF (Neg); MUCUS STRANDS NONE SEEN /LPF (Neg); SQUAMOUS EPITHELIAL CELL,UR MODERATE /LPF (FEW); WBC,URINE 0-4 /HPF (0-4)
[2023-02-27 15:34] LABS: ALANINE AMINOTRANSFERASE 18 U/L (12-78); ALBUMIN 3.9 G/DL (3.4-5.0); ALBUMIN/GLOBULIN RATIO 1.1 (1.1-1.5); ALKALINE PHOSPHATASE 172 IU/L (46-116); ANION GAP 10 (8-16); ASPARTATE AMINO TRANSFERASE 15 U/L (10-37); BILIRUBIN,TOTAL 0.3 MG/DL (0.1-1.0); BLOOD UREA NITROGEN 3 MG/DL (7-18); BUN/CREATININE RATIO 3.8 (10.0-20.0); CALCIUM 9.7 MG/DL (8.5-10.1); CHLORIDE 97 MMOL/L (99-107); GLUCOSE 296 MG/DL (70-104); SODIUM 133 MMOL/L (135-145); TOTAL CARBON DIOXIDE 26.1 MMOL/L (24-32); TOTAL PROTEIN 7.4 G/DL (6.4-8.2); eCRCL 71 ML/MIN; eGFR 78 ML/MIN
[2023-02-27 16:51] LABS: LIPASE < 50 U/L (73-393)
[2023-02-27 16:56] VITALS: TEMP 99
[2023-02-27] MEDS ORDERED: diphenhydrAMINE 50 mg/ml inj IV ONE (19:30)
[2023-02-27] MEDS ORDERED: LORazepam 2 mg/ml vial IV ONE (19:30)
[2023-02-27] MEDS ORDERED: normal saline 1000ML IV soln IVB ONE ×2 (19:30)
[2023-02-27] MEDS ORDERED: metoclopramide 5 mg/ml inj IV ONE (19:30)
[2023-02-27] MEDS ORDERED: ketorolac tromethamine 15mg/ml inj. IV ONE (19:30)
--- NOTE | 2023-02-27 19:53 | NUR ---
FOUND PT IN RM 12 NO REPORT RECEIVED. PT ENDORSES X2 N/V ELEVATED BLOOD SUGARS. ATTMEPTED PIV X3 UNSUCESSFUL. VIDEO NETWORK ENGINEER NOTIFIED.
[2023-02-27 23:19] VITALS: BP 115/74; PULSE 71; RESP 15; O2SAT 96
== END 2023-02-28 00:39 | disposition home or self-care (01) ==
LOC: ER 14:29
DX: R10.84 Generalized abdominal pain (principal); R11.2 Nausea with vomiting, unspecified; M54.9 Dorsalgia, unspecified; G43.909 Migraine, unspecified, not intractable, without status migrainosus; J45.909 Unspecified asthma, uncomplicated; E11.9 Type 2 diabetes mellitus without complications; G89.29 Other chronic pain; F12.90 Cannabis use, unspecified, uncomplicated; Z56.0 Unemployment, unspecified; Z90.49 Acquired absence of other specified parts of digestive tract; Z90.710 Acquired absence of both cervix and uterus; Z87.81 Personal history of (healed) traumatic fracture; Z88.5 Allergy status to narcotic agent; Z88.1 Allergy status to other antibiotic agents; Z79.899 Other long term (current) drug therapy
CPT/HCPCS: 36415; 80053; 81001; 81025; 82948; 83690; 85025; 96361; 96374; 96375; 99285; J1200; J1885; J2060; J2765; J7030

== ENCOUNTER 2023-03-03 08:49 | Inpatient (IN) | payer MEDICAID ==
[~2023-03-03] VITALS: Ht 167.6 cm; Wt 50.0 kg
[2023-03-03] MEDS ORDERED: haloperidol lactate 5mg/ml inj IM ONE (09:25)
[2023-03-03] MEDS ORDERED: normal saline 1000ML IV soln IVB ONE ×2 (09:25→10:55)
[2023-03-03] MEDS ORDERED: diphenhydrAMINE 50 mg/ml inj IV ONE (09:25)
[2023-03-03 09:51] LABS: BASOPHILS % (AUTO) 0.4 % (0-1); EOSINOPHILS % (AUTO) 0.1 % (0-6); HEMATOCRIT 45.9 % (35.0-45.0); HEMOGLOBIN 15.5 g/dl (12.0-16.0); LYMPHOCYTES # (AUTO) 1.1 X10'3 (1.1-4.8); LYMPHOCYTES % (AUTO) 8.9 % (21-51); MEAN CORPUSCULAR HEMOGLOBIN 33.7 PG (27.0-31.0); MEAN CORPUSCULAR HGB CONC 33.7 g/dL (33.0-36.5); MEAN PLATELET VOLUME 8.8 FL (7.4-10.4); MONOCYTES # (AUTO) 0.9 X10'3 (0-0.9); MONOCYTES % (AUTO) 7.6 % (2-12); NEUTROPHILS # (AUTO) 9.9 X10'3 (1.8-7.7); PLATELET COUNT 341 X10'3 (140-440); RED BLOOD COUNT 4.59 X10'6 (4.20-5.60); RED CELL DISTRIBUTION WIDTH 15.9 % (11.5-14.5)
[2023-03-03] MEDS ORDERED: morphine 2 MG/ML inj. syringe IV ONE (10:05)
[2023-03-03 10:06] LABS: ALANINE AMINOTRANSFERASE 12 U/L (12-78); ALBUMIN 3.7 G/DL (3.4-5.0); ALBUMIN/GLOBULIN RATIO 0.9 (1.1-1.5); ALKALINE PHOSPHATASE 138 IU/L (46-116); ANION GAP 29 (8-16); BILIRUBIN,TOTAL 0.4 MG/DL (0.1-1.0); BLOOD UREA NITROGEN 30 MG/DL (7-18); BUN/CREATININE RATIO 13.7 (10.0-20.0); CALCIUM 9.2 MG/DL (8.5-10.1); CHLORIDE 85 MMOL/L (99-107); CREATININE 2.19 MG/DL (0.40-0.90); SODIUM 132 MMOL/L (135-145); TOTAL CARBON DIOXIDE 18.1 MMOL/L (24-32); eCRCL 26 ML/MIN; eGFR 24 ML/MIN
[2023-03-03 10:09] LABS: ASPARTATE AMINO TRANSFERASE 20 U/L (10-37); POTASSIUM 3.5 MMOL/L (3.5-5.1)
[2023-03-03 10:24] LABS: GLUCOSE 422 MG/DL (70-104)
[2023-03-03] MEDS ORDERED: insulin regular, human U-100 3ml vial - multi-dose IV ONE (10:30)
[2023-03-03 10:31] LABS: BILIRUBIN,URINE SMALL (Neg); CLARITY,URINE SLIGHTLY CLOUDY (Clear); COLOR,URINE YELLOW (Yellow); GLUCOSE, URINE 500 mg/dl (Neg); KETONES,URINE >=80 mg/dl (Neg); LEUKOCYTE ESTERASE ,URINE NEGATIVE (Neg); NITRITES, URINE NEGATIVE (Neg); OCCULT BLOOD,URINE NEGATIVE (Neg); PROTEIN,URINE 30 mg/dl (Neg); UROBILINOGEN,URINE 0.2 E.U/dL (0.2-1.0)
[2023-03-03 10:33] LABS: UA COLLECTION TYPE STRAIGHT CATH
[2023-03-03 10:39] LABS: BACTERIA,URINE FEW /HPF (Neg); FINE GRANULAR CAST 0-3 /LPF (NEGATIVE); MUCUS STRANDS NONE SEEN /LPF (Neg); RBC,URINE NONE SEEN /HPF (0-2); RENAL CELLS, URINE MODERATE /HPF; SQUAMOUS EPITHELIAL CELL,UR NONE SEEN /LPF (FEW); WBC CASTS 0-3 /LPF (NEGATIVE); WBC CLUMPS,URINE FEW /HPF (NEGATIVE)
[2023-03-03] MEDS ORDERED: CefTRIAXone/D5W-Rocephin 1gm 50 ML IV ONE (10:55)
[2023-03-03 11:01] LABS: URINE AMPHETAMINE SCREEN NEGATIVE (Neg); URINE BARBITUATE SCREEN NEGATIVE (Neg); URINE BENZODIAZEPINES SCREEN NEGATIVE (Neg); URINE CANNABINOID SCREEN POSITIVE (Neg); URINE COCAINE SCREEN NEGATIVE (Neg); URINE METHADONE SCREEN NEGATIVE (Neg); URINE OPIATE SCREEN POSITIVE (Neg); URINE PHENCYCLIDINE SCREEN NEGATIVE (Neg)
[2023-03-03] MEDS ORDERED: mag hydrox/Alum hydrox/simeth 30ml oral suspension PO PRN (11:45)
[2023-03-03] MEDS ORDERED: HYDROcodone/acetaminophen 5mg/325mg tablet PO PRN (11:45)
[2023-03-03] MEDS ORDERED: magnesium hydroxide 30ml (MOM) UD suspension PO PRN (11:45)
[2023-03-03] MEDS ORDERED: sodium phosphate inj. 15 MMOL in dextrose 5%-water 250 ML IV PRN (11:45)
[2023-03-03] MEDS ORDERED: insulin regular, human U-100 3ml vial - multi-dose IV PRN (11:45)
[2023-03-03] MEDS ORDERED: sodium phosphate inj. 30 MMOL in dextrose 5%-water 250 ML IV PRN (11:45)
[2023-03-03] MEDS ORDERED: potassium Cl 20 mEq SR tablet PO PRN ×2 (11:45)
[2023-03-03] MEDS ORDERED: acetaminophen 325mg tablet PO PRN ×2 (11:45)
[2023-03-03] MEDS ORDERED: HYDROmorphone/PF 0.2 MG/ML SYRINGE IV PRN ×2 (11:45→19:15)
[2023-03-03] MEDS ORDERED: HYDROcodone/acetaminophen 10/325mg tab PO PRN (11:45)
[2023-03-03] MEDS ORDERED: Neutra Phos packet PO PRN (11:45)
[2023-03-03] MEDS ORDERED: ondansetron/PF 4mg/2ml inj IV PRN (11:45)
[2023-03-03] MEDS ORDERED: potassium Cl 40MEQ/1/2NS 520ml 520 ML IV PRN ×2 (11:45)
[2023-03-03] MEDS ORDERED: metoclopramide 5 mg/ml inj IV PRN (11:45)
[2023-03-03] MEDS: normal saline 1000ml 1,000 ML IV SCH ×8 (11:45→23:42)
[2023-03-03] MEDS ORDERED: potassium CL 20mEq in D5-1/2NS 1,000 ML IV PRN ×2 (11:45→15:35)
[2023-03-03] MEDS ORDERED: sodium bicarbonate (8.4%) inj. 50 MEQ in dextrose 5% water 500ml 250 ML IV PRN (11:45)
[2023-03-03] MEDS ORDERED: sodium bicarbonate (8.4%) inj. 100 MEQ in dextrose 5% water 500ml 500 ML IV PRN (11:45)
[2023-03-03] MEDS: Insulin Reg/NS 100units/100mL 100 ML IV SCH (12:28)
[2023-03-03] MEDS: HYDROmorphone inj. 0.5 MG/0.5 ML DISP.SYRIN IV PRN ×5 (12:44→23:26)
[2023-03-03 13:02] LABS: ANION GAP 19 (8-16); BLOOD UREA NITROGEN 26 MG/DL (7-18); BUN/CREATININE RATIO 14.4 (10.0-20.0); CALCIUM 7.5 MG/DL (8.5-10.1); CHLORIDE 99 MMOL/L (99-107); CREATININE 1.81 MG/DL (0.40-0.90); GLUCOSE 300 MG/DL (70-104); PHOSPHORUS 3.3 MG/DL (2.3-4.5); SODIUM 138 MMOL/L (135-145); TOTAL CARBON DIOXIDE 19.7 MMOL/L (24-32); eCRCL 31 ML/MIN; eGFR 30 ML/MIN
[2023-03-03 13:07] LABS: POTASSIUM 2.5 MMOL/L (3.5-5.1)
--- NOTE | 2023-03-03 13:11 | NUR ---
LAB NOTIFIED ED THAT PT K IS 2.5. RN NOTIFIED DR BRYAN AND HE JUST ENTERED ORD FOR REPLACEMENT. RN NOTIFIED CHIRAG PEREZ AND HE WILL REPLACE.
[2023-03-03] MEDS ORDERED: FLUO40CA PO (13:26)
[2023-03-03] MEDS: pantoprazole 40MG/NS 100ML BAG 100 ML IV SCH ×2 (16:11→21:07)
[2023-03-03 16:35] LABS: ALBUMIN 2.4 G/DL (3.4-5.0); ANION GAP 8 (8-16); BLOOD UREA NITROGEN 19 MG/DL (7-18); BUN/CREATININE RATIO 15.1 (10.0-20.0); CALCIUM 7.3 MG/DL (8.5-10.1); CHLORIDE 107 MMOL/L (99-107); CREATININE 1.26 MG/DL (0.40-0.90); GLUCOSE 136 MG/DL (70-104); PHOSPHORUS 2.1 MG/DL (2.3-4.5); SODIUM 140 MMOL/L (135-145); eCRCL 45 ML/MIN; eGFR 46 ML/MIN
[2023-03-03 16:44] LABS: POTASSIUM 2.3 MMOL/L (3.5-5.1)
[2023-03-03 17:20] LABS: ABG BASE EXCESS -3.2 mmol/L (-2.0-2.0); ABG HCO3 20.8 mmol/L (22.0-26.0); ABG OXYGEN SATURATION 93.8 % (94-97); ABG PCO2 (T) 33.8 mmHg (32.0-45.0); ABG PH (T) 7.408 (7.350-7.450); ABG PO2 (T) 70.2 mmHg (75.0-100.0); ALLEN'S TEST POSITIVE; FCOHb 0.4 % (0.0-3.9); FHHb 6.2 % (0.0-5.0); FMetHb 0.1 % (0.0-1.5); FO2Hb 93.3 % (94-97); MODE ROOM AIR; TOTAL HEMOGLOBIN 11.5 G/dl (12.0-16.0)
[2023-03-03] MEDS ORDERED: Potassium Cl 40 MEQ in sodium chloride 0.45% 500 ML IV ONE ×2 (17:20→21:30)
--- NOTE | 2023-03-03 18:07 | NUR ---
at 1800 blood sugar is 58, stopped the insulin and increased the D5 1/2 NS to 200ml/hr. gap has closed at this time.
--- NOTE | 2023-03-03 18:35 | NUR ---
RECEIVED REPORT FROM CHRIS BEARD, PTS DKA HAS RESOLVED, HOWEVER PT IS TPN DEPENDENT AND WILL BE UNABLE TO TRANSITION OFF DRIP PER PROTOCOL UNTIL THIS IS RESOLVED. DR YOLIE PADILLA, TIRE MOUNTER PATTY MADE AWARE. MANAGER EDUCATION AND DIETARY OFFICE ALSO NOTIFIED. WILL CONTINUE TO MONITOR. PER DAY SHIFT RN, LAST BG WAS 57 AND JUICE WAS GIVEN TO PT. UPON RECHECK THIS RN FOUND BG TO BE 81. PER DAY SHIFT RN, INSULIN DRIP PAUSED.
[2023-03-03] MEDS ORDERED: sodium chloride inj. 154 MEQ in Dextrose 10%-water IV solution 961.5 ML IV SCH (18:45)
--- NOTE | 2023-03-03 19:04 | NUR ---
PER DR COBB, PT WILL BE PLACED ON D10NS DRIP AT 50 ML/HR WITH INSULIN DRIP TO BE RESTARTED AT 2 UNITS PER HOUR WITH BLOOD GLUCOSE CHECKS TO CONTINUE
[2023-03-03] MEDS: docusate sod 100mg capsule PO SCH (20:00)
[2023-03-03] MEDS: K and/or MAG REPLACEMENT MC SCH (20:00)
[2023-03-03 20:06] LABS: ALANINE AMINOTRANSFERASE 12 U/L (12-78); ALBUMIN 2.8 G/DL (3.4-5.0); ALBUMIN/GLOBULIN RATIO 0.9 (1.1-1.5); ALKALINE PHOSPHATASE 100 IU/L (46-116); ANION GAP 8 (8-16); ASPARTATE AMINO TRANSFERASE 22 U/L (10-37); BILIRUBIN,TOTAL 0.2 MG/DL (0.1-1.0); BLOOD UREA NITROGEN 17 MG/DL (7-18); BUN/CREATININE RATIO 14.5 (10.0-20.0); CALCIUM 7.8 MG/DL (8.5-10.1); CHLORIDE 106 MMOL/L (99-107); CREATININE 1.17 MG/DL (0.40-0.90); GLUCOSE 108 MG/DL (70-104); PHOSPHORUS 2.2 MG/DL (2.3-4.5); POTASSIUM 3.1 MMOL/L (3.5-5.1); SODIUM 141 MMOL/L (135-145); TOTAL CARBON DIOXIDE 26.9 MMOL/L (24-32); eCRCL 48 ML/MIN; eGFR 50 ML/MIN
[2023-03-03 21:29] LABS: ALANINE AMINOTRANSFERASE 10 U/L (12-78); ALBUMIN 2.7 G/DL (3.4-5.0); ALBUMIN/GLOBULIN RATIO 0.9 (1.1-1.5); ALKALINE PHOSPHATASE 96 IU/L (46-116); ANION GAP 10 (8-16); ASPARTATE AMINO TRANSFERASE 20 U/L (10-37); BILIRUBIN,TOTAL 0.2 MG/DL (0.1-1.0); BLOOD UREA NITROGEN 14 MG/DL (7-18); BUN/CREATININE RATIO 13.5 (10.0-20.0); CALCIUM 7.8 MG/DL (8.5-10.1); CHLORIDE 107 MMOL/L (99-107); CREATININE 1.04 MG/DL (0.40-0.90); GLUCOSE 156 MG/DL (70-104); POTASSIUM 3.3 MMOL/L (3.5-5.1); SODIUM 139 MMOL/L (135-145); TOTAL CARBON DIOXIDE 22.5 MMOL/L (24-32); TOTAL PROTEIN 5.7 G/DL (6.4-8.2); eCRCL 54 ML/MIN; eGFR 57 ML/MIN
--- NOTE | 2023-03-03 21:47 | NUR ---
PT PLACED ON HOSPITAL BED, PROVIDED WITH CLEAN GOWN
--- NOTE | 2023-03-03 23:56 | NUR ---
DR COBB NOTIFIED THAT BG IS 216. PER MD STOP D10
[2023-03-04] VITALS (7 sets, daily range): BP systolic 96–114; BP diastolic 52–72; PULSE 51–73; RESP 13–16; TEMP 98; O2SAT 96–100
[2023-03-04 00:39] LABS: ALANINE AMINOTRANSFERASE 10 U/L (12-78); ALBUMIN 2.3 G/DL (3.4-5.0); ALBUMIN/GLOBULIN RATIO 0.9 (1.1-1.5); ALKALINE PHOSPHATASE 82 IU/L (46-116); ANION GAP 9 (8-16); ASPARTATE AMINO TRANSFERASE 20 U/L (10-37); BILIRUBIN,TOTAL 0.2 MG/DL (0.1-1.0); BLOOD UREA NITROGEN 11 MG/DL (7-18); BUN/CREATININE RATIO 13.1 (10.0-20.0); CALCIUM 7.4 MG/DL (8.5-10.1); CHLORIDE 105 MMOL/L (99-107); CREATININE 0.84 MG/DL (0.40-0.90); GLUCOSE 248 MG/DL (70-104); PHOSPHORUS 1.9 MG/DL (2.3-4.5); POTASSIUM 4.1 MMOL/L (3.5-5.1); SODIUM 135 MMOL/L (135-145); TOTAL CARBON DIOXIDE 20.6 MMOL/L (24-32); TOTAL PROTEIN 4.8 G/DL (6.4-8.2); eCRCL 67 ML/MIN; eGFR 73 ML/MIN
[2023-03-04] MEDS: pantoprazole 40MG/NS 100ML BAG 100 ML IV SCH ×5 (00:58→21:30)
[2023-03-04] MEDS: HYDROmorphone inj. 0.5 MG/0.5 ML DISP.SYRIN IV PRN ×3 (01:54→06:06)
[2023-03-04 02:25] LABS: ALANINE AMINOTRANSFERASE 11 U/L (12-78); ALBUMIN 2.2 G/DL (3.4-5.0); ALBUMIN/GLOBULIN RATIO 0.8 (1.1-1.5); ALKALINE PHOSPHATASE 82 IU/L (46-116); ANION GAP 6 (8-16); ASPARTATE AMINO TRANSFERASE 18 U/L (10-37); BILIRUBIN,TOTAL 0.2 MG/DL (0.1-1.0); BLOOD UREA NITROGEN 9 MG/DL (7-18); BUN/CREATININE RATIO 10.8 (10.0-20.0); CALCIUM 7.6 MG/DL (8.5-10.1); CHLORIDE 107 MMOL/L (99-107); CREATININE 0.83 MG/DL (0.40-0.90); GLUCOSE 240 MG/DL (70-104); PHOSPHORUS 1.8 MG/DL (2.3-4.5); POTASSIUM 4.3 MMOL/L (3.5-5.1); SODIUM 135 MMOL/L (135-145); TOTAL PROTEIN 4.8 G/DL (6.4-8.2); eCRCL 68 ML/MIN; eGFR 74 ML/MIN
[2023-03-04] MEDS: normal saline 1000ml 1,000 ML IV SCH ×8 (03:41→23:45)
--- NOTE | 2023-03-04 03:44 | NUR ---
PER DR COBB, DISCONTINUE PHOSPHOROUS REPLACEMENT, THIS SHOULD CORRECT WHEN THE UNDERLYING PROBLEM IS RESOLVED. MD MADE AWARE PHOSPHORUS IS 1.8, WILL CONTINUE TO MONITOR. PER , OK TO DO NEXT CMP AT 1000
--- NOTE | 2023-03-04 06:07 | NUR ---
PT C/O ABD PAIN. PT ADMINISTERED DILAUDID BY THIS RN AT THE REQUEST OF CHRIS AG.
--- NOTE | 2023-03-04 06:16 | NUR ---
NOTIFIED DR COBB THAT PTS BG IS NOW 109. ORDERS RECEIVED TO DECREASE INSULIN DRIP TO 1 UNIT/HR
[2023-03-04] MEDS: docusate sod 100mg capsule PO SCH ×2 (07:27→19:20)
[2023-03-04] MEDS: K and/or MAG REPLACEMENT MC SCH ×2 (08:00→19:23)
[2023-03-04 08:24] LABS: BASOPHILS # (AUTO) 0.1 X10'3 (0-0.2); BASOPHILS % (AUTO) 0.6 % (0-1); EOSINOPHILS # (AUTO) 0.2 X10'3 (0-0.9); EOSINOPHILS % (AUTO) 1.3 % (0-6); HEMATOCRIT 28.7 % (35.0-45.0); HEMOGLOBIN 9.5 g/dl (12.0-16.0); LYMPHOCYTES # (AUTO) 2.2 X10'3 (1.1-4.8); LYMPHOCYTES % (AUTO) 19.4 % (21-51); MEAN CORPUSCULAR HEMOGLOBIN 33.1 PG (27.0-31.0); MEAN CORPUSCULAR HGB CONC 33.1 g/dL (33.0-36.5); MEAN CORPUSCULAR VOLUME 100.1 FL (78-98); MONOCYTES # (AUTO) 1.3 X10'3 (0-0.9); MONOCYTES % (AUTO) 11.7 % (2-12); NEUTROPHILS # (AUTO) 7.6 X10'3 (1.8-7.7); PLATELET COUNT 214 X10'3 (140-440); RED BLOOD COUNT 2.87 X10'6 (4.20-5.60); RED CELL DISTRIBUTION WIDTH 15.8 % (11.5-14.5); WHITE BLOOD COUNT 11.4 X10'3 (4.5-11.0)
[2023-03-04 08:42] LABS: ALBUMIN 2.1 G/DL (3.4-5.0); ALBUMIN/GLOBULIN RATIO 0.8 (1.1-1.5); ALKALINE PHOSPHATASE 75 IU/L (46-116); ANION GAP 6 (8-16); ASPARTATE AMINO TRANSFERASE 17 U/L (10-37); BILIRUBIN,TOTAL 0.1 MG/DL (0.1-1.0); BLOOD UREA NITROGEN 7 MG/DL (7-18); BUN/CREATININE RATIO 9.7 (10.0-20.0); CALCIUM 7.8 MG/DL (8.5-10.1); CHLORIDE 109 MMOL/L (99-107); CREATININE 0.72 MG/DL (0.40-0.90); GLUCOSE 107 MG/DL (70-104); POTASSIUM 3.6 MMOL/L (3.5-5.1); SODIUM 137 MMOL/L (135-145); TOTAL CARBON DIOXIDE 22.3 MMOL/L (24-32); TOTAL PROTEIN 4.6 G/DL (6.4-8.2); eCRCL 78 ML/MIN; eGFR 88 ML/MIN
[2023-03-04 08:51] LABS: ALANINE AMINOTRANSFERASE 11 U/L (12-78)
[2023-03-04] MEDS ORDERED: LIDOcaine Viscous 15ml cup ONE (08:54)
[2023-03-04] MEDS ORDERED: MIDAZolam 1 MG/ML 5ML VIAL ONE (08:54)
[2023-03-04] MEDS ORDERED: fentaNYL/PF 50MCG/1 ML 2ML syringe ONE (08:54)
--- NOTE | 2023-03-04 09:25 | NUR ---
VALERIE BRYAN X2 - AWAITING ORDERS FOR MORNING INSULIN GTT ADJUSTMENT AND SOFT BPS. WILL CONTINUE TO MONITOR. PT OFF CONLEY AT UPPER GI STUDY.
--- NOTE | 2023-03-04 10:31 | NUR ---
Patient back to room after GI study.
--- NOTE | 2023-03-04 10:36 | NUR ---
TPN consult: Pt admit for RODO secondary to DKA. Most recent A1c in EMR is 7.6% which is consistent with 7.7% 08/2022 visit both down from prior 10.6% 03/2022 per EMR. DM education not appropriate given PN dependence. Per RD 02/01 note at previous admit pt "chronically on TPN for pancreatitis despite having GJ placed October 2020 and tolerating EN at that time but GJ then removed later that month for "increased pain" per EMR." TPN to start today, recommendations below have been d/w clinical pharmacist. Pt would benefit from transition to jejunal feeds to optimize long-term nutrition status given hx if within POC, d/w bedside RN. Noted pt initially on a CHO controlled diet though now on a clear liquid diet per physician following GI study. Pt with a low BMI though current wt isn't scaled and pt chronically with a low weight. Will continue to follow closely. Recommendations: 1. Continuous TPN per MD using 2:1 Clinimix-E 5/20 at 65 mL/hr goal with separate 100mL 20% ILE to run for 12 hours daily at 8.33 mL/hr. To provide 1560 mL volume/day, 78 g AA, 312 g DEX (4.33 mg/kg/min), and 1573 kcal 2. Advance to CHO controlled diet as medically indicated; resume pancreatic enzymes once PO 3. TG and PALB q Monday/ 4. Daily scaled wts 5. Consider jejunal feedings for long-term nutrition needs given functional gut and hx tolerating October 2020 prior to GJ removal same month. IF EN: Osmolite 1.2 at 55 mL/hr to provide 1320 mL volume/day, 1584 kcal, 1082 mL water, and 73 g protein. Additional 75 mL water flush [id number] serum Na 6. Bowel care per rx Addendum: 03/04/23 at [address] Amended: Links added.
[2023-03-04] MEDS ORDERED: Dextrose 10%-water IV solution 1,000 ML IV PRN ×2 (10:45→10:54)
[2023-03-04] MEDS: potassium CL 20mEq in D5-1/2NS 1,000 ML IV SCH ×2 (10:58→20:55)
[2023-03-04 11:50] LABS: MAGNESIUM 1.9 MG/DL (1.5-2.4); PREALBUMIN 16.3 MG/DL (19-36); TRIGLYCERIDES 76 MG/DL (20-135)
[2023-03-04] MEDS ORDERED: MVI, adult No.4 with vit. K 10 ML in dextrose 5% water 500ml 500 ML IV SCH ×2 (12:00)
[2023-03-04] MEDS: Insulin Reg/NS 100units/100mL 100 ML IV SCH (12:00)
--- NOTE | 2023-03-04 12:00 | NUR ---
Spoke with MD Cruz regarding IV MF's, TPN, and insulin drip. MD stated to initiate TPN/lipids when available, then discontinue insulin gtt as patient has been eating some breakfast and noon meal without issue. also asked to run NS @ 100ml/hr for MF's along with TPN.
[2023-03-04] MEDS: HYDROmorphone 1 mg/ml syringe IV PRN ×6 (12:17→23:29)
[2023-03-04] MEDS: [UNRECOGNIZED DRUG - OTHER] IV SCH (14:22)
[2023-03-04] MEDS: ZINC IV SCH (14:22)
[2023-03-04] MEDS: MANGANESE IV SCH (14:22)
[2023-03-04] MEDS: CHROMIC CHLORIDE IV SCH (14:22)
[2023-03-04] MEDS: COPPER IV SCH (14:22)
[2023-03-04] MEDS: SELENIUM IV SCH (14:22)
[2023-03-04] MEDS: fat emulsion 20% inj. 100 ML IV SCH (14:23)
[2023-03-04] MEDS ORDERED: DEXTROSE 15 GM of carb/4 tabs (each vial/BOTTLE has 4 tablets) PO PRN ×2 (22:00)
[2023-03-04] MEDS ORDERED: insulin Lispro (HumaLOG) vial - multi-dose SQ SCH (22:00)
[2023-03-04] MEDS ORDERED: glucagon, human recombinant 1mg kit SUBCUT PRN (22:00)
[2023-03-04] MEDS ORDERED: MESSAGE TO PHARMACY PO ONE (22:00)
[2023-03-04] MEDS ORDERED: dextrose 50%-water 50ml dispensing syringe IV PRN ×2 (22:00)
[2023-03-04] MEDS: potassium Cl 20mEq in NS 1,000 ML IV SCH (22:58)
[2023-03-05] VITALS (8 sets, daily range): BP systolic 108–161; BP diastolic 61–94; PULSE 55–62; RESP 12–20; TEMP 97–100; O2SAT 94–99
[2023-03-05] MEDS: pantoprazole 40MG/NS 100ML BAG 100 ML IV SCH ×5 (01:13→21:26)
[2023-03-05] MEDS: HYDROmorphone 1 mg/ml syringe IV PRN ×11 (01:43→23:33)
[2023-03-05] MEDS ORDERED: dextrose 50%-water 50ml dispensing syringe IV PRN ×2 (02:30)
[2023-03-05] MEDS ORDERED: DEXTROSE 15 GM of carb/4 tabs (each vial/BOTTLE has 4 tablets) PO PRN ×2 (02:30)
[2023-03-05] MEDS ORDERED: glucagon, human recombinant 1mg kit SUBCUT PRN (02:30)
[2023-03-05] MEDS: insulin regular, human U-100 3ml vial - multi-dose SQ SCH ×2 (02:41→13:05)
--- NOTE | 2023-03-05 06:41 | NUR ---
REPORT GIVEN TO FANG PEREZ, PT RESTING AT THIS TIME, PAIN MED GIVEN.
[2023-03-05 07:28] LABS: BASOPHILS # (AUTO) 0.1 X10'3 (0-0.2); BASOPHILS % (AUTO) 1.3 % (0-1); EOSINOPHILS # (AUTO) 0.4 X10'3 (0-0.9); EOSINOPHILS % (AUTO) 4.5 % (0-6); HEMATOCRIT 28.1 % (35.0-45.0); HEMOGLOBIN 9.5 g/dl (12.0-16.0); LYMPHOCYTES # (AUTO) 2.7 X10'3 (1.1-4.8); LYMPHOCYTES % (AUTO) 34.8 % (21-51); MEAN CORPUSCULAR HEMOGLOBIN 33.6 PG (27.0-31.0); MEAN CORPUSCULAR HGB CONC 33.8 g/dL (33.0-36.5); MEAN CORPUSCULAR VOLUME 99.5 FL (78-98); MONOCYTES # (AUTO) 0.8 X10'3 (0-0.9); MONOCYTES % (AUTO) 10.5 % (2-12); NEUTROPHILS # (AUTO) 3.8 X10'3 (1.8-7.7); NEUTROPHILS % (AUTO) 48.9 % (42-75); PLATELET COUNT 231 X10'3 (140-440); RED BLOOD COUNT 2.83 X10'6 (4.20-5.60); RED CELL DISTRIBUTION WIDTH 15.4 % (11.5-14.5); WHITE BLOOD COUNT 7.9 X10'3 (4.5-11.0)
[2023-03-05] MEDS: docusate sod 100mg capsule PO SCH ×2 (07:36→20:00)
[2023-03-05 07:52] LABS: ALBUMIN 2.2 G/DL (3.4-5.0); ANION GAP 8 (8-16); BLOOD UREA NITROGEN 4 MG/DL (7-18); BUN/CREATININE RATIO 6.8 (10.0-20.0); CALCIUM 8.5 MG/DL (8.5-10.1); CHLORIDE 108 MMOL/L (99-107); CREATININE 0.59 MG/DL (0.40-0.90); GLUCOSE 94 MG/DL (70-104); MAGNESIUM 1.9 MG/DL (1.5-2.4); PHOSPHORUS 2.1 MG/DL (2.3-4.5); POTASSIUM 3.7 MMOL/L (3.5-5.1); SODIUM 137 MMOL/L (135-145); TOTAL CARBON DIOXIDE 20.9 MMOL/L (24-32); eCRCL 95 ML/MIN; eGFR > 90 ML/MIN
[2023-03-05] MEDS ORDERED: sodium phosphate inj. 15 MMOL in dextrose 5%-water 250 ML IV ONE (09:45)
[2023-03-05] MEDS: MANGANESE IV SCH (13:08)
[2023-03-05] MEDS: ZINC IV SCH (13:08)
[2023-03-05] MEDS: COPPER IV SCH (13:08)
[2023-03-05] MEDS: [UNRECOGNIZED DRUG - OTHER] IV SCH (13:08)
[2023-03-05] MEDS: SELENIUM IV SCH (13:08)
[2023-03-05] MEDS: fat emulsion 20% inj. 100 ML IV SCH (13:08)
[2023-03-05] MEDS: CHROMIC CHLORIDE IV SCH (13:08)
[2023-03-05] MEDS: potassium Cl 20mEq in NS 1,000 ML IV SCH (16:09)
--- NOTE | 2023-03-05 18:19 | NUR ---
Report given to Zoe PREEZ
[2023-03-05] MEDS ORDERED: ZINC/COPPER/MANGANESE/SELENIUM 1 ML, chromic chloride inj. 10 MCG in AA 5%/CALCIUM/LYTE... IV SCH (19:28)
[2023-03-05] MEDS ORDERED: insulin glargine (Lantus) pen - multi-dose SQ SCH (21:00)
--- NOTE | 2023-03-06 01:10 | NUR ---
pt refused orthostatic vitals multiple times. Addendum: 03/06/23 at 0111 by Zoe Fine RN Amended: Links added.
[2023-03-06] MEDS: pantoprazole 40MG/NS 100ML BAG 100 ML IV SCH ×3 (01:27→09:30)
[2023-03-06] MEDS: HYDROmorphone 1 mg/ml syringe IV PRN ×5 (01:28→11:33)
[2023-03-06] MEDS: insulin regular, human U-100 3ml vial - multi-dose SQ SCH ×2 (01:46→07:51)
[2023-03-06] MEDS: potassium Cl 20mEq in NS 1,000 ML IV SCH ×2 (01:52→04:35)
[2023-03-06 02:00] VITALS: BP_SYST 121; BP_SYST 161; BP_DIAS 53; BP_DIAS 90; PULSE 50; PULSE 54; RESP 14; RESP 15; TEMP 97.4; TEMP 97.9; O2SAT 97; O2SAT 99
--- NOTE | 2023-03-06 06:19 | NUR ---
Problems reprioritized. Patient report given, questions answered & plan of care reviewed with Elaine PEREZ. Pt stable at shift change.
[2023-03-06 06:45] LABS: BASOPHILS # (AUTO) 0.1 X10'3 (0-0.2); BASOPHILS % (AUTO) 1.2 % (0-1); EOSINOPHILS # (AUTO) 0.4 X10'3 (0-0.9); HEMATOCRIT 29.4 % (35.0-45.0); LYMPHOCYTES # (AUTO) 2.4 X10'3 (1.1-4.8); LYMPHOCYTES % (AUTO) 29.1 % (21-51); MEAN CORPUSCULAR HEMOGLOBIN 33.7 PG (27.0-31.0); MEAN CORPUSCULAR HGB CONC 33.9 g/dL (33.0-36.5); MEAN CORPUSCULAR VOLUME 99.4 FL (78-98); MONOCYTES # (AUTO) 0.8 X10'3 (0-0.9); MONOCYTES % (AUTO) 9.8 % (2-12); NEUTROPHILS # (AUTO) 4.5 X10'3 (1.8-7.7); NEUTROPHILS % (AUTO) 54.9 % (42-75); PLATELET COUNT 268 X10'3 (140-440); RED BLOOD COUNT 2.96 X10'6 (4.20-5.60); RED CELL DISTRIBUTION WIDTH 15.3 % (11.5-14.5); WHITE BLOOD COUNT 8.2 X10'3 (4.5-11.0)
[2023-03-06 06:54] LABS: ALBUMIN 2.3 G/DL (3.4-5.0); ANION GAP 5 (8-16); BLOOD UREA NITROGEN 9 MG/DL (7-18); BUN/CREATININE RATIO 13.8 (10.0-20.0); CALCIUM 8.5 MG/DL (8.5-10.1); CHLORIDE 105 MMOL/L (99-107); CREATININE 0.65 MG/DL (0.40-0.90); GLUCOSE 191 MG/DL (70-104); MAGNESIUM 1.6 MG/DL (1.5-2.4); PHOSPHORUS 2.5 MG/DL (2.3-4.5); POTASSIUM 3.5 MMOL/L (3.5-5.1); PREALBUMIN 19.6 MG/DL (19-36); SODIUM 134 MMOL/L (135-145); TOTAL CARBON DIOXIDE 24.2 MMOL/L (24-32); TRIGLYCERIDES 95 MG/DL (20-135); eCRCL 86 ML/MIN; eGFR > 90 ML/MIN
[2023-03-06 07:09] VITALS: BP 120/82; PULSE 61; RESP 14; TEMP 98.1; O2SAT 93
[2023-03-06] MEDS: docusate sod 100mg capsule PO SCH (07:32)
[2023-03-06 09:00] VITALS: RESP 16
[2023-03-06] MEDS ORDERED: PANT40TA54 PO (09:52)
[2023-03-06 11:09] VITALS: BP 136/83; PULSE 72; RESP 16; TEMP 98; O2SAT 96
[2023-03-06 11:33] VITALS: RESP 16
[2023-03-06] MEDS ORDERED: heparin sodium, porcine/PF 100unit/ml 5ML syringe IV ONE ×2 (11:40→11:50)
--- NOTE | 2023-03-06 12:22 | NUR ---
Patient education completed for discharge. Patient will complete her own hep lock at home, she didn't want to wait for the pharmacy to send up the medication. Verbal acknowledgement completed of understanding of education and instructions throughout all discharge. Patient refused a WC on discharge, states "I can walk out." Groshong flushed with ns 10 CC EACH LUMEN upon discharge. Patient is aware to pickup medication at pharmacy on file. Patient states she takes this medication already 2 times daily and it isn't a change in the medication from home. All belongings with patient. Patient dressed herself. PIVs x2 taken out, canula in tact and no issues. Patient tolerated well.
--- NOTE | 2023-03-06 12:30 | NUR ---
Patient was walked out to lobby by technical designer, no ride present even after she had told nurse her ride was waiting. Patient and tech waited for 20 minutes. Tech had patient who is walky-talky in the lobby for her ride. Security was informed and aware.
== END 2023-03-06 12:26 | disposition home or self-care (01) | DRG 241 ==
LOC: ER 08:50 → ED HOLD 11:51 → UNDOADMIN 13:18 → ED HOLD 13:18 → PCU 3S 03-04 22:14 → UNDODISIN 03-06 12:26
PROVIDERS: ADMIT Internal Medicine; ATTEND Internal Medicine
PROC: 0DB68ZX Excision of Stomach, Via Natural or Artificial Opening Endoscopic, Diagnostic (ICD-10-PCS; principal; 2023-03-04)
DX: K26.4 Chronic or unspecified duodenal ulcer with hemorrhage (principal); N17.9 Acute kidney failure, unspecified; E08.10 Diabetes mellitus due to underlying condition with ketoacidosis without coma; K86.89 Other specified diseases of pancreas; F17.210 Nicotine dependence, cigarettes, uncomplicated; F12.10 Cannabis abuse, uncomplicated; J45.909 Unspecified asthma, uncomplicated; F32.A Depression, unspecified; N39.0 Urinary tract infection, site not specified; D62 Acute posthemorrhagic anemia; G43.909 Migraine, unspecified, not intractable, without status migrainosus; G89.29 Other chronic pain; M54.9 Dorsalgia, unspecified; E86.0 Dehydration; Z79.01 Long term (current) use of anticoagulants; Z79.899 Other long term (current) drug therapy; Z90.710 Acquired absence of both cervix and uterus; Z90.49 Acquired absence of other specified parts of digestive tract; Z90.81 Acquired absence of spleen; Z88.1 Allergy status to other antibiotic agents; Z87.11 Personal history of peptic ulcer disease; Z56.0 Unemployment, unspecified
CPT/HCPCS: 36415; 36600; 43239; 71045; 80048; 80053; 80305; 81001; 82803; 82948; 83605; 83735; 84100; 84134; 84145; 84478; 85018; 85025; 86885; 86900; 86901; 87040; 87081; 87088; 96374; 97116; 97161; 97530; 99152; 99153; 99285; A4620; C1758; C9113; G0378; J0696; J1170; J1200; J1630; J1815; J2250; J2270; J2405; J3010; J3480; J3490; J7030; J7060

== ENCOUNTER 2023-04-04 12:25 | Inpatient (IN) | payer MEDICAID ==
[~2023-04-04] VITALS: Ht 167.6 cm; Wt 47.0 kg
[~2023-04-04 12:25] MED LIST changes: -APIX5TAB3 PO; -FLUO-1 PO; +FLUO40CA PO
[2023-04-04 12:53] VITALS: TEMP 98.2
[2023-04-04 13:13] LABS: BILIRUBIN,URINE NEGATIVE (Neg); CLARITY,URINE CLEAR (Clear); COLOR,URINE YELLOW (Yellow); GLUCOSE, URINE 500 mg/dl (Neg); KETONES,URINE >=80 mg/dl (Neg); LEUKOCYTE ESTERASE ,URINE NEGATIVE (Neg); NITRITES, URINE NEGATIVE (Neg); OCCULT BLOOD,URINE NEGATIVE (Neg); PROTEIN,URINE NEGATIVE (Neg); UA COLLECTION TYPE CLN CATCH MIDSTREAM; UROBILINOGEN,URINE 0.2 E.U/dL (0.2-1.0)
[2023-04-04 14:04] LABS: URINE HCG NEGATIVE (NEG)
[2023-04-04 14:58] LABS: BASOPHILS # (AUTO) 0.1 X10'3 (0-0.2); BASOPHILS % (AUTO) 0.9 % (0-1); EOSINOPHILS # (AUTO) 0.1 X10'3 (0-0.9); EOSINOPHILS % (AUTO) 1.5 % (0-6); HEMATOCRIT 38.3 % (35.0-45.0); LYMPHOCYTES # (AUTO) 2.2 X10'3 (1.1-4.8); MEAN CORPUSCULAR HEMOGLOBIN 34.4 PG (27.0-31.0); MEAN CORPUSCULAR HGB CONC 33.9 g/dL (33.0-36.5); MEAN CORPUSCULAR VOLUME 101.3 FL (78-98); MEAN PLATELET VOLUME 8.4 FL (7.4-10.4); MONOCYTES # (AUTO) 0.7 X10'3 (0-0.9); MONOCYTES % (AUTO) 8.4 % (2-12); NEUTROPHILS # (AUTO) 5.7 X10'3 (1.8-7.7); NEUTROPHILS % (AUTO) 64.2 % (42-75); PLATELET COUNT 294 X10'3 (140-440); RED BLOOD COUNT 3.79 X10'6 (4.20-5.60); RED CELL DISTRIBUTION WIDTH 15.6 % (11.5-14.5); WHITE BLOOD COUNT 8.9 X10'3 (4.5-11.0)
[2023-04-04 15:18] LABS: ALANINE AMINOTRANSFERASE 30 U/L (12-78); ALBUMIN 3.1 G/DL (3.4-5.0); ALBUMIN/GLOBULIN RATIO 0.9 (1.1-1.5); ALKALINE PHOSPHATASE 160 IU/L (46-116); ANION GAP 9 (8-16); BILIRUBIN,TOTAL 0.3 MG/DL (0.1-1.0); BLOOD UREA NITROGEN 4 MG/DL (7-18); BUN/CREATININE RATIO 4.9 (10.0-20.0); CALCIUM 9.7 MG/DL (8.5-10.1); CHLORIDE 92 MMOL/L (99-107); CREATININE 0.82 MG/DL (0.40-0.90); SODIUM 127 MMOL/L (135-145); TOTAL PROTEIN 6.5 G/DL (6.4-8.2); eCRCL 64 ML/MIN; eGFR 75 ML/MIN
[2023-04-04 15:21] LABS: ASPARTATE AMINO TRANSFERASE 27 U/L (10-37); GLUCOSE 407 MG/DL (70-104); POTASSIUM 4.2 MMOL/L (3.5-5.1)
[2023-04-04] MEDS ORDERED: ringers solution, lacted 1,000 ML IV ONE ×2 (17:00→23:10)
[2023-04-04] MEDS ORDERED: iohexol 300mg/ml 100ml inj. ONE ×2 (17:05→18:58)
[2023-04-04] MEDS ORDERED: insulin regular, human 10 units/0.1 ml syringe IV ONE (18:00)
[2023-04-04 18:20] LABS: AMYLASE 13 U/L (25-115)
[2023-04-04] MEDS ORDERED: HYDROmorphone 1 mg/ml syringe IV ONE ×2 (21:45→23:10)
[2023-04-04] MEDS ORDERED: APIX5TAB3 PO (23:29)
[2023-04-04] MEDS ORDERED: magnesium 2GM in 50ml NS 50 ML IV PRN ×2 (23:30→23:35)
[2023-04-04] MEDS ORDERED: mag hydrox/Alum hydrox/simeth 30ml oral suspension PO PRN (23:30)
[2023-04-04] MEDS ORDERED: potassium Cl 20 mEq SR tablet PO PRN ×2 (23:30)
[2023-04-04] MEDS ORDERED: magnesium hydroxide 30ml (MOM) UD suspension PO PRN (23:30)
[2023-04-04] MEDS ORDERED: potassium Cl 40MEQ/1/2NS 520ml 520 ML IV PRN (23:30)
[2023-04-04] MEDS: dextrose 5%-1/2 normal saline 1,000 ML IV SCH (23:30)
[2023-04-04] MEDS ORDERED: magnesium Cl slow-release 64mg tablet PO PRN ×2 (23:30→23:35)
[2023-04-04] MEDS ORDERED: acetaminophen 325mg tablet PO PRN (23:30)
[2023-04-04] MEDS ORDERED: magnesium 4gm in 100ml NS 100 ML IV PRN ×2 (23:30→23:35)
[2023-04-04] MEDS ORDERED: ondansetron/PF 4mg/2ml inj IV PRN (23:30)
[2023-04-04] MEDS ORDERED: insulin Lispro (HumaLOG) vial - multi-dose SQ SCH (23:35)
[2023-04-04] MEDS ORDERED: glucagon, human recombinant 1mg kit SUBCUT PRN (23:35)
[2023-04-04] MEDS ORDERED: naloxone 0.4 mg/ml inj IV PRN (23:35)
[2023-04-04] MEDS ORDERED: MESSAGE TO PHARMACY PO ONE (23:35)
[2023-04-04] MEDS ORDERED: dextrose 50%-water 50ml dispensing syringe IV PRN ×2 (23:35)
[2023-04-04] MEDS ORDERED: DEXTROSE 15 GM of carb/4 tabs (each vial/BOTTLE has 4 tablets) PO PRN ×2 (23:35)
[2023-04-04] MEDS ORDERED: levetiracetam inj 1,000 MG in normal saline 100ml IV soln 90 ML IV ONE (23:46)
[2023-04-04] MEDS: HYDROmorph/NS 0.2 mg/ml PCA 100 ML IV SCH (23:47)
[2023-04-04] MEDS ORDERED: levetiracetam inj 1,000 MG in normal saline 100ml IV soln 100 ML IV ONE (23:52)
[2023-04-05 00:07] LABS: ALANINE AMINOTRANSFERASE 23 U/L (12-78); ALBUMIN 2.7 G/DL (3.4-5.0); ALBUMIN/GLOBULIN RATIO 0.8 (1.1-1.5); ALKALINE PHOSPHATASE 140 IU/L (46-116); ANION GAP 5 (8-16); ASPARTATE AMINO TRANSFERASE 14 U/L (10-37); BILIRUBIN,TOTAL 0.3 MG/DL (0.1-1.0); BLOOD UREA NITROGEN 3 MG/DL (7-18); BUN/CREATININE RATIO 4.2 (10.0-20.0); CALCIUM 8.8 MG/DL (8.5-10.1); CHLORIDE 97 MMOL/L (99-107); CREATININE 0.72 MG/DL (0.40-0.90); GLUCOSE 194 MG/DL (70-104); PHOSPHORUS 2.5 MG/DL (2.3-4.5); SODIUM 131 MMOL/L (135-145); TOTAL CARBON DIOXIDE 28.7 MMOL/L (24-32); TOTAL PROTEIN 5.9 G/DL (6.4-8.2); eCRCL 73 ML/MIN; eGFR 88 ML/MIN
[2023-04-05 00:29] LABS: POTASSIUM 2.9 MMOL/L (3.5-5.1)
[2023-04-05] MEDS: HYDROmorph/NS 0.2 mg/ml PCA 100 ML IV SCH ×3 (01:16→05:40)
[2023-04-05] MEDS ORDERED: metoclopramide 10mg tablet PO PRN (05:20)
[2023-04-05] MEDS ORDERED: oxyCODONE IR 5mg (immed. release) tablet PO PRN (05:30)
[2023-04-05] MEDS ORDERED: INSU100V30 SQ (05:33)
[2023-04-05] MEDS ORDERED: diphenhydrAMINE 25mg capsule PO PRN (05:35)
[2023-04-05] MEDS: sucralfate 1 gm tablet PO SCH ×2 (07:00→14:32)
[2023-04-05] MEDS ORDERED: PCA WASTE DOCUMENTATION 1 MG ML MC PRN (08:00)
[2023-04-05] MEDS ORDERED: K and/or MAG REPLACEMENT MC SCH (08:00)
[2023-04-05] MEDS ORDERED: apixaban 5mg tablet PO SCH (08:00)
[2023-04-05] MEDS ORDERED: docusate sod 100mg capsule PO SCH (08:00)
[2023-04-05] MEDS ORDERED: FLUoxetine 20mg capsule PO SCH (08:00)
[2023-04-05] MEDS ORDERED: pantoprazole 40mg Tablet.DR PO SCH (08:00)
[2023-04-05] MEDS ORDERED: BUPRENORPHINE HCL SL SCH (08:00)
[2023-04-05] MEDS ORDERED: carBAMazepine Ext. Release 200 MG TAB.ER.12H PO SCH (08:00)
[2023-04-05 08:27] LABS: MAGNESIUM 1.8 MG/DL (1.5-2.4); POTASSIUM 3.2 MMOL/L (3.5-5.1)
--- NOTE | 2023-04-05 10:08 | NUR ---
pt's iv to the left ac has infiltrated and has swollen her arm. potassium was running at the time. pt now reports painful cramping to the arm. we did wrap her arm in a warm blanket to help pull in the fluids. the provider was made aware, primary RN waiting for any orders or other suggestions.
[2023-04-05] MEDS: dextrose 5%-1/2 normal saline 1,000 ML IV SCH (12:02)
[2023-04-05 12:03] VITALS: BP 144/84; PULSE 56; RESP 14; O2SAT 97
[2023-04-05] MEDS ORDERED: morphine 2 MG/ML inj. syringe IV PRN (13:25)
--- NOTE | 2023-04-05 16:02 | NUR ---
TPN consult: Pt admit for pancreatitis per H&P. Most recent A1c in EMR is 7.6% which is consistent with 7.7% 08/2022 visit both down from prior 10.6% 03/2022 per EMR. DM education not appropriate given PN dependence. Per RD 02/01 note at previous admit pt "chronically on TPN for pancreatitis despite having GJ placed October 2020 and tolerating EN at that time but GJ then removed later that month for "increased pain" per EMR." Per T/C discussion with RN, pt is currently waiting in ED for an available bed. TPN recommendations below-pharmacist notified. Per prior RD note on 03/03,pt would benefit from transition to jejunal feeds to optimize long-term nutrition status given hx if within POC. Pt presents with a low BMI though current wt isn't scaled and pt chronically with a low weight. Will continue to follow closely. Recommendations: 1. Continuous TPN per MD using 2:1 Clinimix-E / at 65 mL/hr goal with separate 100mL 20% ILE to run for 12 hours daily at 8.33 mL/hr. To provide 1560 mL volume/day, 78 g AA, 312 g DEX (4.33 mg/kg/min), and 1573 kcal 2. Continue clear liquid diet per MD 3. Discontinue Dextrose/NaCl with TPN initiation 4. TG and PALB q Monday/ 5. Daily scaled wts 6. Consider jejunal feedings for long-term nutrition needs given functional gut and hx tolerating October 2020 prior to GJ removal same month. 7. Bowel care per rx Addendum: 04/05/23 at [address] Amended: Links added.
[2023-04-05] MEDS ORDERED: Dextrose 10%-water IV solution 1,000 ML IV PRN (16:20)
--- NOTE | 2023-04-05 16:26 | NUR ---
When pt was told that the SENIOR COURTROOM CLERK dilaudid was discontinued and replaced with hydrocodone 10/ she requested to AMA. The provider was advised via a page. Charge nurse was also made aware.
[2023-04-05] MEDS ORDERED: fat emulsion 20% inj. 100 ML IV SCH (19:00)
[2023-04-05] MEDS ORDERED: ZINC/COPPER/MANGANESE/SELENIUM 1 ML, chromic chloride inj. 10 MCG in AA 5%/CALCIUM/LYTE... IV SCH (19:00)
[2023-04-05] MEDS ORDERED: insulin glargine (Lantus) pen - multi-dose SQ SCH (21:00)
[2023-04-07] MEDS ORDERED: MVI, adult No.4 with vit. K 10 ML in dextrose 5% water 500ml 500 ML IV SCH ×2 (08:00)
== END 2023-04-05 17:17 | disposition left against medical advice (07) | DRG 241 ==
LOC: ER 12:25 → ED HOLD 23:33
PROVIDERS: ADMIT Internal Medicine; ATTEND Family Medicine
DX: K29.00 Acute gastritis without bleeding (principal); K26.9 Duodenal ulcer, unspecified as acute or chronic, without hemorrhage or perforation; Z53.29 Procedure and treatment not carried out because of patient's decision for other reasons; E11.65 Type 2 diabetes mellitus with hyperglycemia; G89.29 Other chronic pain; J45.909 Unspecified asthma, uncomplicated; K86.1 Other chronic pancreatitis; G40.909 Epilepsy, unspecified, not intractable, without status epilepticus; F32.A Depression, unspecified; E87.6 Hypokalemia; Z87.11 Personal history of peptic ulcer disease; Z90.710 Acquired absence of both cervix and uterus; Z90.81 Acquired absence of spleen
CPT/HCPCS: 36415; 71045; 74177; 80053; 81003; 81025; 82150; 82948; 83735; 84100; 84132; 84484; 85025; 93005; 99285; A4615; G0378; J1170; J1815; J1953; J3480; J3490; J7030; J7120; Q9967

== ENCOUNTER 2023-04-15 19:48 | Inpatient (IN) | payer MEDICAID ==
[~2023-04-15] VITALS: Ht 167.6 cm; Wt 45.5 kg
[~2023-04-15 19:48] MED LIST changes: +APIX5TAB3 PO; +INSU100V30 SQ; +LORA-269 PO
[2023-04-15 22:38] LABS: ALANINE AMINOTRANSFERASE 44 U/L (12-78); ALBUMIN 3.5 G/DL (3.4-5.0); ALKALINE PHOSPHATASE 191 IU/L (46-116); ANION GAP 26 (8-16); ASPARTATE AMINO TRANSFERASE 31 U/L (10-37); BILIRUBIN,TOTAL 0.6 MG/DL (0.1-1.0); BLOOD UREA NITROGEN 6 MG/DL (7-18); BUN/CREATININE RATIO 4.8 (10.0-20.0); CALCIUM 8.9 MG/DL (8.5-10.1); CHLORIDE 97 MMOL/L (99-107); CREATININE 1.25 MG/DL (0.40-0.90); POTASSIUM 3.1 MMOL/L (3.5-5.1); SODIUM 134 MMOL/L (135-145); eCRCL 41 ML/MIN; eGFR 46 ML/MIN
[2023-04-15 22:40] LABS: ALBUMIN/GLOBULIN RATIO 0.9 (1.1-1.5); GLUCOSE 292 MG/DL (70-104); TOTAL PROTEIN 7.6 G/DL (6.4-8.2)
[2023-04-15 22:44] LABS: TOTAL CARBON DIOXIDE 11.4 MMOL/L (24-32)
[2023-04-15 22:48] LABS: BASOPHILS # (AUTO) 0.1 X10'3 (0-0.2); BASOPHILS % (AUTO) 0.4 % (0-1); EOSINOPHILS % (AUTO) 0 % (0-6); HEMOGLOBIN 14.6 g/dl (12.0-16.0); LYMPHOCYTES % (AUTO) 4.7 % (21-51); MEAN CORPUSCULAR HEMOGLOBIN 33.6 PG (27.0-31.0); MEAN CORPUSCULAR HGB CONC 33.1 g/dL (33.0-36.5); MEAN CORPUSCULAR VOLUME 101.5 FL (78-98); MEAN PLATELET VOLUME 8.9 FL (7.4-10.4); MONOCYTES # (AUTO) 2.2 X10'3 (0-0.9); MONOCYTES % (AUTO) 10.6 % (2-12); NEUTROPHILS # (AUTO) 17.6 X10'3 (1.8-7.7); NEUTROPHILS % (AUTO) 84.3 % (42-75); PLATELET COUNT 356 X10'3 (140-440); RED BLOOD COUNT 4.34 X10'6 (4.20-5.60); RED CELL DISTRIBUTION WIDTH 15.8 % (11.5-14.5); WHITE BLOOD COUNT 20.9 X10'3 (4.5-11.0)
[2023-04-15] MEDS ORDERED: diphenhydrAMINE 50 mg/ml inj IV ONE (22:50)
[2023-04-15] MEDS ORDERED: sodium phosphate inj. 15 MMOL in dextrose 5%-water 250 ML IV PRN (22:50)
[2023-04-15] MEDS ORDERED: potassium CL 20mEq in D5-1/2NS 1,000 ML IV PRN (22:50)
[2023-04-15] MEDS: normal saline 1000ml 1,000 ML IV SCH ×4 (22:50→23:20)
[2023-04-15] MEDS ORDERED: metoclopramide 5 mg/ml inj IV ONE (22:50)
[2023-04-15] MEDS ORDERED: sodium bicarbonate (8.4%) inj. 100 MEQ in dextrose 5% water 500ml 500 ML IV PRN (22:50)
[2023-04-15] MEDS ORDERED: sodium bicarbonate (8.4%) inj. 50 MEQ in dextrose 5% water 500ml 250 ML IV PRN (22:50)
[2023-04-15] MEDS ORDERED: insulin regular, human U-100 3ml vial - multi-dose IV PRN (22:50)
[2023-04-15] MEDS ORDERED: sodium phosphate inj. 30 MMOL in dextrose 5%-water 250 ML IV PRN (22:50)
[2023-04-15] MEDS ORDERED: potassium Cl 20 mEq SR tablet PO PRN (22:50)
[2023-04-15] MEDS ORDERED: potassium Cl 40MEQ/1/2NS 520ml 520 ML IV PRN ×2 (22:50)
[2023-04-15] MEDS ORDERED: Neutra Phos packet PO PRN (22:50)
[2023-04-15] MEDS ORDERED: Insulin Reg/NS 100units/100mL 100 ML IV SCH (22:50)
[2023-04-15] MEDS ORDERED: morphine 4 MG/ML inj SYRINge IV ONE (23:00)
[2023-04-15 23:06] LABS: PHOSPHORUS 2.7 MG/DL (2.3-4.5)
[2023-04-15 23:09] LABS: LIPASE 7 U/L (16-77)
[2023-04-16] MEDS ORDERED: morphine 4 MG/ML inj SYRINge IV ONE (00:05)
[2023-04-16] MEDS ORDERED: INSU100I31 SQ (00:52)
[2023-04-16] MEDS ORDERED: haloperidol lactate 5mg/ml inj IM ONE (01:20)
[2023-04-16 01:25] LABS: ABG HCO3 7.1 mmol/L (22.0-26.0); ABG OXYGEN SATURATION 97.2 % (94-97); ABG PCO2 (T) 19.3 mmHg (32.0-45.0); ABG PH (T) 7.187 (7.350-7.450); ABG PO2 (T) 106.7 mmHg (75.0-100.0); FCOHb 0.4 % (0.0-3.9); FHHb 2.8 % (0.0-5.0); FMetHb 0.2 % (0.0-1.5); FO2Hb 96.6 % (94-97); MODE ROOM AIR; PATIENT TEMPERATURE 37.1; TOTAL HEMOGLOBIN 13.1 G/dl (12.0-16.0)
[2023-04-16] MEDS: normal saline 1000ml 1,000 ML IV SCH ×5 (01:52→17:00)
[2023-04-16] MEDS ORDERED: sodium bicarbonate (8.4%) inj. 100 MEQ in dextrose 5% water 500ml 500 ML IV PRN (03:05)
[2023-04-16] MEDS ORDERED: magnesium hydroxide 30ml (MOM) UD suspension PO PRN (03:05)
[2023-04-16] MEDS ORDERED: insulin regular, human U-100 3ml vial - multi-dose IV PRN (03:05)
[2023-04-16] MEDS ORDERED: sodium bicarbonate (8.4%) inj. 50 MEQ in dextrose 5% water 500ml 250 ML IV PRN (03:05)
[2023-04-16] MEDS ORDERED: potassium Cl 20 mEq SR tablet PO PRN ×4 (03:05)
[2023-04-16] MEDS ORDERED: mag hydrox/Alum hydrox/simeth 30ml oral suspension PO PRN (03:05)
[2023-04-16] MEDS ORDERED: sodium phosphate inj. 30 MMOL in dextrose 5%-water 250 ML IV PRN (03:05)
[2023-04-16] MEDS ORDERED: Neutra Phos packet PO PRN (03:05)
[2023-04-16] MEDS ORDERED: Insulin Reg/NS 100units/100mL 100 ML IV SCH (03:05)
[2023-04-16] MEDS ORDERED: docusate sod 100mg capsule PO PRN (03:05)
[2023-04-16] MEDS ORDERED: magnesium Cl slow-release 64mg tablet PO PRN (03:05)
[2023-04-16] MEDS ORDERED: sodium phosphate inj. 15 MMOL in dextrose 5%-water 250 ML IV PRN (03:05)
[2023-04-16] MEDS ORDERED: acetaminophen 325mg tablet PO PRN (03:05)
[2023-04-16] MEDS ORDERED: magnesium 4gm in 100ml NS 100 ML IV PRN (03:05)
[2023-04-16] MEDS ORDERED: potassium CL 20mEq in D5-1/2NS 1,000 ML IV PRN (03:05)
[2023-04-16] MEDS ORDERED: potassium Cl 40MEQ/1/2NS 520ml 520 ML IV PRN ×3 (03:05)
[2023-04-16 03:30] LABS: TOTAL CELLS COUNTED 100
[2023-04-16 03:31] LABS: PLATELET ESTIMATE NORMAL; TARGET CELLS FEW
[2023-04-16] MEDS: HYDROmorphone inj. 0.5 MG/0.5 ML DISP.SYRIN IV PRN ×5 (03:49→21:09)
[2023-04-16 03:52] LABS: ABG BASE EXCESS -20.4 mmol/L (-2.0-2.0); ABG OXYGEN SATURATION 97.5 % (94-97); ABG PCO2 (T) 17.1 mmHg (32.0-45.0); ABG PH (T) 7.164 (7.350-7.450); ABG PO2 (T) 109.2 mmHg (75.0-100.0); FCOHb 0.4 % (0.0-3.9); FHHb 2.5 % (0.0-5.0); FMetHb 0.3 % (0.0-1.5); FO2Hb 96.8 % (94-97); MODE ROOM AIR; PATIENT TEMPERATURE 36.9; TOTAL HEMOGLOBIN 13.2 G/dl (12.0-16.0)
[2023-04-16 04:27] LABS: ALBUMIN 2.8 G/DL (3.4-5.0); ANION GAP 23 (8-16); BLOOD UREA NITROGEN 2 MG/DL (7-18); CALCIUM 7.6 MG/DL (8.5-10.1); CHLORIDE 105 MMOL/L (99-107); CREATININE 0.98 MG/DL (0.40-0.90); MAGNESIUM 1.6 MG/DL (1.5-2.4); PHOSPHORUS 2.3 MG/DL (2.3-4.5); POTASSIUM 5.4 MMOL/L (3.5-5.1); SODIUM 136 MMOL/L (135-145); eCRCL 52 ML/MIN; eGFR 61 ML/MIN
[2023-04-16 04:31] LABS: TOTAL CARBON DIOXIDE 7.6 MMOL/L (24-32)
[2023-04-16 04:33] LABS: GLUCOSE 289 MG/DL (70-104)
[2023-04-16] MEDS ORDERED: insulin regular, human 10 units/0.1 ml syringe IV ONE (04:40)
[2023-04-16] MEDS ORDERED: sodium polystyrene sulfonate 15gm/60ml oral suspension PO ONE (04:45)
[2023-04-16] MEDS ORDERED: sodium bicarbonate (8.4%) inj. 150 MEQ in dextrose 5%-water 1,000 ML IV SCH (05:00)
--- NOTE | 2023-04-16 05:05 | NUR ---
Svetlana Steinberg in ER 11. Bicarb order is outside of DKA protocol. Please clarify. Kayexalate is not needed at this time as insulin drip has been started and increased K is needed. Geetha PEREZ [id number]
--- NOTE | 2023-04-16 06:10 | NUR ---
Discussed protocols with MD. MD agreed with staying within protocols and to cancel ordered Bicarb and kayexelate at this time.
[2023-04-16 06:42] LABS: BILIRUBIN,URINE NEGATIVE (Neg); CLARITY,URINE CLEAR (Clear); COLOR,URINE YELLOW (Yellow); GLUCOSE, URINE 500 mg/dl (Neg); KETONES,URINE >=80 mg/dl (Neg); LEUKOCYTE ESTERASE ,URINE NEGATIVE (Neg); NITRITES, URINE NEGATIVE (Neg); OCCULT BLOOD,URINE MODERATE (Neg); PROTEIN,URINE TRACE mg/dl (Neg); UROBILINOGEN,URINE 0.2 E.U/dL (0.2-1.0)
[2023-04-16 06:44] LABS: UA COLLECTION TYPE CLN CATCH MIDSTREAM
[2023-04-16 06:56] LABS: WBC,URINE 0-4 /HPF (0-4)
[2023-04-16 06:57] LABS: RBC,URINE 0-2 /HPF (0-2); SQUAMOUS EPITHELIAL CELL,UR MANY /LPF (FEW); YEAST FEW /HPF (NEGATIVE)
[2023-04-16 06:58] LABS: BACTERIA,URINE 1+ /HPF (Neg)
[2023-04-16 07:00] LABS: APTT 28 SECONDS (22-32); INR 1.2 INR; PROTHROMBIN TIME 12.5 SECONDS (9.0-12.0)
[2023-04-16] MEDS ORDERED: dextrose 5%-1/2 normal saline 1,000 ML IV SCH (07:20)
[2023-04-16 07:29] LABS: ALBUMIN 2.9 G/DL (3.4-5.0); ANION GAP 25 (8-16); BLOOD UREA NITROGEN 3 MG/DL (7-18); BUN/CREATININE RATIO 2.8 (10.0-20.0); CALCIUM 8.5 MG/DL (8.5-10.1); CHLORIDE 106 MMOL/L (99-107); CREATININE 1.07 MG/DL (0.40-0.90); GLUCOSE 280 MG/DL (70-104); PHOSPHORUS 2.2 MG/DL (2.3-4.5); SODIUM 137 MMOL/L (135-145); eCRCL 48 ML/MIN; eGFR 55 ML/MIN
[2023-04-16 07:33] LABS: POTASSIUM 3.7 MMOL/L (3.5-5.1)
[2023-04-16 07:34] LABS: TOTAL CARBON DIOXIDE 6.1 MMOL/L (24-32)
[2023-04-16] MEDS ORDERED: K and/or MAG REPLACEMENT MC SCH (08:00)
--- NOTE | 2023-04-16 08:26 | NUR ---
RT paged for ABG ordered for this am
[2023-04-16 08:42] LABS: ABG BASE EXCESS -11.9 mmol/L (-2.0-2.0); ABG HCO3 14.1 mmol/L (22.0-26.0); ABG OXYGEN SATURATION 95.8 % (94-97); ABG PCO2 (T) 32.3 mmHg (32.0-45.0); ABG PH (T) 7.257 (7.350-7.450); ABG PO2 (T) 80.3 mmHg (75.0-100.0); ALLEN'S TEST POSITIVE; FCOHb 0.6 % (0.0-3.9); FHHb 4.2 % (0.0-5.0); FMetHb 0.2 % (0.0-1.5); MODE ROOM AIR; TOTAL HEMOGLOBIN 12.4 G/dl (12.0-16.0)
[2023-04-16] MEDS ORDERED: sodium bicarbonate (8.4%) inj. 100 MEQ in dextrose 5%-water 1,000 ML IV PRN (08:55)
[2023-04-16 14:29] LABS: ALBUMIN 2.5 G/DL (3.4-5.0); ANION GAP 6 (8-16); BLOOD UREA NITROGEN 2 MG/DL (7-18); BUN/CREATININE RATIO 2.2 (10.0-20.0); CALCIUM 8.2 MG/DL (8.5-10.1); CHLORIDE 105 MMOL/L (99-107); CREATININE 0.93 MG/DL (0.40-0.90); GLUCOSE 120 MG/DL (70-104); SODIUM 136 MMOL/L (135-145); TOTAL CARBON DIOXIDE 25.2 MMOL/L (24-32); eCRCL 55 ML/MIN; eGFR 65 ML/MIN
[2023-04-16 14:30] LABS: POTASSIUM 2.4 MMOL/L (3.5-5.1)
[2023-04-16] MEDS ORDERED: dextrose 50%-water 50ml dispensing syringe IV PRN ×2 (14:40)
[2023-04-16] MEDS ORDERED: DEXTROSE 15 GM of carb/4 tabs (each vial/BOTTLE has 4 tablets) PO PRN ×2 (14:40)
[2023-04-16] MEDS ORDERED: glucagon, human recombinant 1mg kit SUBCUT PRN (14:40)
[2023-04-16] MEDS ORDERED: MESSAGE TO PHARMACY PO ONE (14:40)
--- NOTE | 2023-04-16 14:41 | NUR ---
Called Dr. Seth regarding K 2.4, BS 113 mg/dl, and anion gap was low. Received order to d/c insulin drip.
[2023-04-16] MEDS: potassium Cl 20 mEq SR tablet PO PRN (15:12)
[2023-04-16] MEDS: HYDROcodone/acetaminophen 5mg/325mg tablet PO PRN ×2 (15:17→19:39)
--- NOTE | 2023-04-16 18:45 | NUR ---
pt moved from main er to ftD
[2023-04-16] MEDS: insulin glargine (Lantus) pen - multi-dose SQ SCH (21:31)
--- NOTE | 2023-04-17 00:05 | NUR ---
pt requested pain med. pt educated on time when meds are due. pain med due at 0100
[2023-04-17] MEDS: normal saline 1000ml 1,000 ML IV SCH ×3 (00:40→16:50)
--- NOTE | 2023-04-17 00:45 | NUR ---
pt requested pain med. pt educated on time meds are due. pain med due at 0100
[2023-04-17] MEDS ORDERED: HYDROmorphone 1 mg/ml syringe ONE ×2 (01:01→04:55)
[2023-04-17] MEDS: ondansetron/PF 4mg/2ml inj IV PRN ×2 (04:28→19:44)
--- NOTE | 2023-04-17 04:29 | NUR ---
pt requested some med for nausea. pt requested her pain med pt educated on time frame for meds. pain med due at 0500
[2023-04-17 07:48] LABS: MAGNESIUM 1.8 MG/DL (1.5-2.4)
[2023-04-17 07:52] LABS: POTASSIUM 2.7 MMOL/L (3.5-5.1)
[2023-04-17] MEDS: HYDROmorphone inj. 0.5 MG/0.5 ML DISP.SYRIN IV PRN ×3 (09:45→19:46)
--- NOTE | 2023-04-17 09:45 | NUR ---
bs is 106 and pt only ate a few bite of her breakfast ss insulin not needed at this time
--- NOTE | 2023-04-17 10:18 | NUR ---
pt is sleeping. c/o general pain and headache. pain meds given
--- NOTE | 2023-04-17 13:00 | NUR ---
SBAR REPORT RECD FROM DEWAYNE PEREZ
--- NOTE | 2023-04-17 13:00 | NUR ---
PO K NOT GIVEN AT THIS TIME D/T PT HAVING NAUSEA.
[2023-04-17] MEDS ORDERED: HYDR25TA5 PO (15:00)
[2023-04-17] MEDS ORDERED: PRAZ1CAP5 PO (15:00)
[2023-04-17] MEDS ORDERED: ERGO500093 PO (15:00)
[2023-04-17] MEDS ORDERED: LIPA1CAP18 PO (15:00)
[2023-04-17] MEDS ORDERED: NICO-631 TOP (15:00)
[2023-04-17 15:16] LABS: HEMOGLOBIN 11.4 g/dl (12.0-16.0); LYMPHOCYTES # (AUTO) 1.2 X10'3 (1.1-4.8); LYMPHOCYTES % (AUTO) 15.8 % (21-51); MONOCYTES # (AUTO) 0.7 X10'3 (0-0.9)
[2023-04-17 15:18] LABS: BASOPHILS # (AUTO) 0.1 X10'3 (0-0.2); BASOPHILS % (AUTO) 0.9 % (0-1); EOSINOPHILS % (AUTO) 0.4 % (0-6); HEMATOCRIT 34.2 % (35.0-45.0); MEAN CORPUSCULAR HEMOGLOBIN 33.6 PG (27.0-31.0); MEAN CORPUSCULAR HGB CONC 33.3 g/dL (33.0-36.5); MEAN CORPUSCULAR VOLUME 100.9 FL (78-98); MONOCYTES % (AUTO) 8.5 % (2-12); NEUTROPHILS # (AUTO) 5.7 X10'3 (1.8-7.7); NEUTROPHILS % (AUTO) 74.4 % (42-75); PLATELET COUNT 296 X10'3 (140-440); RED BLOOD COUNT 3.39 X10'6 (4.20-5.60); RED CELL DISTRIBUTION WIDTH 15.8 % (11.5-14.5); WHITE BLOOD COUNT 7.7 X10'3 (4.5-11.0)
[2023-04-17 15:20] LABS: ALBUMIN 2.5 G/DL (3.4-5.0); ANION GAP 9 (8-16); BLOOD UREA NITROGEN 1 MG/DL (7-18); BUN/CREATININE RATIO 1.2 (10.0-20.0); CALCIUM 8.3 MG/DL (8.5-10.1); CHLORIDE 100 MMOL/L (99-107); CREATININE 0.83 MG/DL (0.40-0.90); GLUCOSE 193 MG/DL (70-104); SODIUM 132 MMOL/L (135-145); TOTAL CARBON DIOXIDE 23.3 MMOL/L (24-32); eCRCL 61 ML/MIN; eGFR 74 ML/MIN
[2023-04-17 15:21] LABS: POTASSIUM 2.6 MMOL/L (3.5-5.1)
--- NOTE | 2023-04-17 15:30 | NUR ---
PT K 2.6. PT STATES NAUSEA HAS IMPROVED. RN WILL ADMIN 1 PO DOSE AND REQ 2 BAGS K AND 1/2 NS WITH PHARMACY. PER PHARMACY IT MAY BE P/U IN 15 MINS
[2023-04-17] MEDS: potassium Cl 20 mEq SR tablet PO PRN (15:35)
[2023-04-17] MEDS ORDERED: PANT-47 PO (15:39)
[2023-04-17 15:42] LABS: BURR CELLS FEW; PLATELET ESTIMATE NORMAL; TARGET CELLS FEW
--- NOTE | 2023-04-17 16:12 | NUR ---
PT REPORTS THAT HER GROSHONG LINE FOR TPN WAS HEPLOCKED AFTER HER LAST INFUSION. EDGE OF DRESSING COMING UP BUT STILL COVERING SITE. RN WILL CLEAN WITH CHLOROHEXIDINE AND APPLY TEGEDERM OVER EDGE OF DRESSING.
--- NOTE | 2023-04-17 16:12 | NUR ---
PER PT SHE HAS PROBLEMS WITH HER GROSHONG DRESSING COMING OFF BECAUSE WHEN SHE GETS DKA SHE LAYS IN THE BOTTOM OF HER SHOWER AND LETS THE WATER RUN OVER HER. RN EDUCATED PT ON RISK OF INFECTION AND SHE SHOULD COVER HER DRESSING AND SHE VERBALIZED UNDERSTANDING
--- NOTE | 2023-04-17 17:08 | NUR ---
NEW BAG OF NS NOT HUNG AT THIS TIME D/T BAG STILL INFUSING
--- NOTE | 2023-04-17 18:57 | NUR ---
RN GAVE ZOFRAN AT 1449 AND DID NOT SIGN OFF ON AUG. RN NOTIFIED ONCOMING CHRIS CUEVAS AND SHE WILL NOT GIVE UNTIL 2048. RN ALSO NOTIFIED THE PHARM AND THEY CAN NOT EDIT ON AUG.
--- NOTE | 2023-04-17 19:31 | NUR ---
PT CONTINUED TO BEND HER ARM WHILE K INFUSING AND DID NOT CALL TO NOTIFY RN. THIS RN WILL ORD CMP STAT/COLLECT BLOOD AND SEND IT TO LAB. FAITH RECEIVING RN NOTIFIED AND WILL CK FOR RESULT.
[2023-04-17 20:05] LABS: ALANINE AMINOTRANSFERASE 50 U/L (12-78); ALBUMIN 2.9 G/DL (3.4-5.0); ALBUMIN/GLOBULIN RATIO 0.9 (1.1-1.5); ALKALINE PHOSPHATASE 143 IU/L (46-116); ANION GAP 10 (8-16); ASPARTATE AMINO TRANSFERASE 65 U/L (10-37); BILIRUBIN,TOTAL 0.7 MG/DL (0.1-1.0); BLOOD UREA NITROGEN 1 MG/DL (7-18); BUN/CREATININE RATIO 1.1 (10.0-20.0); CALCIUM 8.9 MG/DL (8.5-10.1); CHLORIDE 99 MMOL/L (99-107); CREATININE 0.87 MG/DL (0.40-0.90); GLUCOSE 205 MG/DL (70-104); POTASSIUM 3.7 MMOL/L (3.5-5.1); SODIUM 133 MMOL/L (135-145); TOTAL CARBON DIOXIDE 24.5 MMOL/L (24-32); eCRCL 59 ML/MIN; eGFR 70 ML/MIN
[2023-04-17] MEDS: insulin glargine (Lantus) pen - multi-dose SQ SCH (23:22)
[2023-04-18] VITALS (9 sets, daily range): BP systolic 134–183; BP diastolic 50–99; PULSE 69–98; RESP 16–18; TEMP 97.8–99; O2SAT 96–98
[2023-04-18] MEDS: normal saline 1000ml 1,000 ML IV SCH ×3 (00:50→16:55)
[2023-04-18] MEDS ORDERED: ketorolac trometh. 30mg/ml inj. IM PRN (01:10)
[2023-04-18] MEDS ORDERED: ketorolac trometh. 30mg/ml inj. IV PRN (01:20)
[2023-04-18] MEDS: ondansetron/PF 4mg/2ml inj IV PRN ×4 (02:47→21:55)
[2023-04-18] MEDS: HYDROcodone/acetaminophen 5mg/325mg tablet PO PRN (03:23)
--- NOTE | 2023-04-18 06:00 | NUR ---
Patient in room PCU 3015. I have received report from Saumya and had the opportunity to ask questions and assume patient care.
--- NOTE | 2023-04-18 06:36 | NUR ---
Problems reprioritized. Patient report given, questions answered & plan of care reviewed with DUONG LARES.
[2023-04-18 07:04] LABS: MAGNESIUM 1.8 MG/DL (1.5-2.4)
[2023-04-18 07:05] LABS: POTASSIUM 2.7 MMOL/L (3.5-5.1)
--- NOTE | 2023-04-18 07:55 | NUR ---
Sent to Dr Seth - 0787E Svetlana Steinberg Has a critical lab - potassium 2.7. Will start protocol. Janee [facility] [phone]
[2023-04-18] MEDS: ketorolac tromethamine 15mg/ml inj. IV PRN ×2 (08:48→22:56)
--- NOTE | 2023-04-18 09:46 | NUR ---
Sent to Dr Seth - 4038H Steinberg, Svetlana was given Toradol and Zofran and she is still nauseous and dry heaving and her pain cont to be 9/10. Please advise. Janee [facility] [phone]
--- NOTE | 2023-04-18 10:04 | NUR ---
Sent to Dr Seth -3788S Svetlaan Steinberg refused k-dur due to nausea. Will try again. Janee [facility] [phone]
[2023-04-18] MEDS: proCHLORperazine 10 MG/2 ml inj IV PRN (10:58)
[2023-04-18] MEDS: HYDROmorphone inj. 0.5 MG/0.5 ML DISP.SYRIN IV PRN ×3 (10:58→19:36)
[2023-04-18] MEDS: potassium Cl 40MEQ/1/2NS 520ml 520 ML IV PRN ×2 (12:21→16:55)
--- NOTE | 2023-04-18 15:01 | NUR ---
Sent to Dr Seth - 7471E Idris Mota tried to eat lunch and vomited after a couple bites. Pain is a bit better but BP is 183/99. Janee U [phone]
--- NOTE | 2023-04-18 15:49 | NUR ---
Initial: Pt DX of DKA and hypokalemia per EMR. Pt started on carbohydrate controlled diet on 04/16 per EMR. Noted 0% for first meal and per clinical documentation manager of emesis on 04/17 as well as "vomited after a couple of bites" on 04/18. 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 Pt presents with a low BMI of 16.2 however current wt is not scaled of 45.45kg (100 pounds). Will monitor for RN malnutrition screen though per H&P pt denies weight loss. No BM yet per EMR. Will continue to monitor. Recommendations: 1.continue carbohydrate controlled diet 2.monitor PO intake and need for ONS 3.routine bowel care 4.scaled wt this admit;subsequent weekly scaled wt Addendum: 04/18/23 at [address] Amended: Links added.
--- NOTE | 2023-04-18 16:04 | NUR ---
AGREE WITH PROCESS DESCRIPTION WRITER AM ASSESSMENT
[2023-04-18] MEDS: insulin Lispro (HumaLOG) vial - multi-dose SQ SCH (19:31)
[2023-04-18] MEDS: hydrALAZINE 20mg/ml inj. IV SCH (19:36)
[2023-04-18] MEDS: insulin glargine (Lantus) pen - multi-dose SQ SCH (21:00)
[2023-04-19] VITALS (9 sets, daily range): BP systolic 119–175; BP diastolic 72–100; PULSE 80–114; RESP 15–18; TEMP 97–99.4; O2SAT 95–100
[2023-04-19] MEDS: normal saline 1000ml 1,000 ML IV SCH ×3 (00:50→18:15)
--- NOTE | 2023-04-19 02:19 | NUR ---
Sent to pharmacy - 3176G Svetlana Steinberg Dr ordered Buprenorphine Hcl 2mg Tab Subl. 2 tabs SL TID
[2023-04-19] MEDS: hydrALAZINE 20mg/ml inj. IV SCH ×4 (02:44→19:24)
[2023-04-19] MEDS: HYDROmorphone inj. 0.5 MG/0.5 ML DISP.SYRIN IV PRN ×5 (02:45→20:56)
[2023-04-19] MEDS: HYDROcodone/acetaminophen 5mg/325mg tablet PO PRN (05:17)
--- NOTE | 2023-04-19 05:43 | NUR ---
Patient c/o unmanaged pain throughout the night. I called Dr Durham and discussed with him patients home meds. Patient is on oxy and buprenorphine at home. Dr Durham asked me to write and order for buprenorphine. Pharmacy informed me they only have buprenorphine with naloxone. This medication will not work for this patient since she uses the bupe for breakthough pain and the naloxone would cause the dilauded she is on to not be as effective.
--- NOTE | 2023-04-19 06:37 | NUR ---
Problems reprioritized. Patient report given, questions answered & plan of care reviewed with lEisha.
[2023-04-19 07:36] LABS: BASOPHILS # (AUTO) 0.1 X10'3 (0-0.2)
[2023-04-19 07:37] LABS: BASOPHILS % (AUTO) 0.9 % (0-1); EOSINOPHILS % (AUTO) 0 % (0-6); HEMATOCRIT 38.6 % (35.0-45.0); LYMPHOCYTES # (AUTO) 0.7 X10'3 (1.1-4.8); LYMPHOCYTES % (AUTO) 10.2 % (21-51); MEAN CORPUSCULAR HEMOGLOBIN 33.6 PG (27.0-31.0); MEAN CORPUSCULAR HGB CONC 33.8 g/dL (33.0-36.5); MEAN CORPUSCULAR VOLUME 99.5 FL (78-98); MEAN PLATELET VOLUME 9.2 FL (7.4-10.4); MONOCYTES # (AUTO) 0.9 X10'3 (0-0.9); MONOCYTES % (AUTO) 12.3 % (2-12); NEUTROPHILS # (AUTO) 5.5 X10'3 (1.8-7.7); NEUTROPHILS % (AUTO) 76.6 % (42-75); PLATELET COUNT 288 X10'3 (140-440); RED BLOOD COUNT 3.88 X10'6 (4.20-5.60); RED CELL DISTRIBUTION WIDTH 15.1 % (11.5-14.5); WHITE BLOOD COUNT 7.2 X10'3 (4.5-11.0)
[2023-04-19] MEDS ORDERED: buprenorphine/naloxone 2-0.5mg sublingual tablet SL SCH (08:00)
[2023-04-19 08:11] LABS: LARGE PLATELETS FEW; PLATELET ESTIMATE NORMAL; TARGET CELLS FEW
[2023-04-19 08:12] LABS: BURR CELLS FEW
[2023-04-19 08:51] LABS: ALANINE AMINOTRANSFERASE 47 U/L (12-78); ALBUMIN 2.9 G/DL (3.4-5.0); ALBUMIN/GLOBULIN RATIO 0.9 (1.1-1.5); ALKALINE PHOSPHATASE 130 IU/L (46-116); ANION GAP 19 (8-16); ASPARTATE AMINO TRANSFERASE 40 U/L (10-37); BILIRUBIN,TOTAL 0.8 MG/DL (0.1-1.0); BLOOD UREA NITROGEN 1 MG/DL (7-18); BUN/CREATININE RATIO 1.5 (10.0-20.0); CALCIUM 8.8 MG/DL (8.5-10.1); CHLORIDE 97 MMOL/L (99-107); CREATININE 0.67 MG/DL (0.40-0.90); GLUCOSE 176 MG/DL (70-104); MAGNESIUM 1.8 MG/DL (1.5-2.4); SODIUM 133 MMOL/L (135-145); TOTAL CARBON DIOXIDE 17.1 MMOL/L (24-32); TOTAL PROTEIN 6.2 G/DL (6.4-8.2); eCRCL 76 ML/MIN; eGFR > 90 ML/MIN
[2023-04-19 08:53] LABS: POTASSIUM 2.6 MMOL/L (3.5-5.1)
--- NOTE | 2023-04-19 08:58 | NUR ---
PAGER ID: [phone] MESSAGE: Octavia Steinberg. Critical K 2.6. Will replace per protocol. Kiley [facility] [id number]
[2023-04-19] MEDS: ondansetron/PF 4mg/2ml inj IV PRN ×3 (09:09→20:55)
[2023-04-19] MEDS: insulin Lispro (HumaLOG) vial - multi-dose SQ SCH ×2 (09:24→19:33)
[2023-04-19] MEDS: potassium Cl 40MEQ/1/2NS 520ml 520 ML IV PRN ×2 (10:15→14:50)
[2023-04-19] MEDS ORDERED: HYDROchlorothiazide 25mg tablet PO PRN (12:35)
[2023-04-19] MEDS ORDERED: metoclopramide 10mg tablet PO PRN (12:35)
[2023-04-19] MEDS: pantoprazole 40mg Tablet.DR PO SCH (12:35)
--- NOTE | 2023-04-19 12:43 | NUR ---
notified dr christopher re: pts med rec needs to be complete and elevated bp 175/84.
[2023-04-19] MEDS: carBAMazepine Ext. Release 200 MG TAB.ER.12H PO SCH ×2 (13:00→21:00)
[2023-04-19] MEDS ORDERED: diphenhydrAMINE 25mg capsule PO PRN (13:19)
[2023-04-19] MEDS: FLUoxetine 20mg capsule PO SCH (14:00)
[2023-04-19] MEDS: ketorolac tromethamine 15mg/ml inj. IV PRN (14:44)
--- NOTE | 2023-04-19 14:57 | NUR ---
paged dr christopher re: PAGER ID: [phone] MESSAGE: Svetlana Steinberg. BP 184/103. 5 mg hydralazine given now. pt refusing all PO meds d/t n/v.. Elisha 1384
[2023-04-19] MEDS ORDERED: hydrALAZINE 20mg/ml inj. IV ONE (16:10)
--- NOTE | 2023-04-19 18:27 | NUR ---
Problems reprioritized. Patient report given to, questions answered & plan of care reviewed with CHRIS Enriquez.
--- NOTE | 2023-04-19 18:28 | NUR ---
Problems reprioritized. Patient report given, questions answered & plan of care reviewed with lexy melara.
--- NOTE | 2023-04-19 19:00 | NUR ---
Pt BP was 160/100 and pt was in 10/10 pain. Nurse gave routine hydralazine per order, rechecked BP which was 150/80 and pain level was 5/10
[2023-04-19] MEDS: apixaban 5mg tablet PO SCH (20:00)
[2023-04-19] MEDS: PROTEASE PO SCH (21:00)
[2023-04-19] MEDS: SUCRALFATE 1 GM/10 ML PO SCH (21:00)
[2023-04-19] MEDS: AMYLASE PO SCH (21:00)
[2023-04-19] MEDS: LIPASE PO SCH (21:00)
[2023-04-19] MEDS: BUPRENORPHINE HCL 2 MG SL SCH (21:00)
[2023-04-19] MEDS: insulin glargine (Lantus) pen - multi-dose SQ SCH (21:54)
--- NOTE | 2023-04-19 22:08 | NUR ---
Pt is not taking PO medications d/t emesis x2 this shift, PRN zofran given per orders, ineffective and nurse MD notified.
--- NOTE | 2023-04-19 22:34 | NUR ---
Nurse spoke with Provider Herminio regarding pt nausea and that pt stated the zofran was barely helping. Provider gave order for compazine 10mg IV diluted Q6h.
[2023-04-20] VITALS (7 sets, daily range): BP systolic 129–190; BP diastolic 80–119; PULSE 87–117; RESP 14–22; TEMP 97.9–98.2; O2SAT 95–99
[2023-04-20] MEDS: proCHLORperazine 10 MG/2 ml inj IV PRN ×4 (01:12→21:28)
[2023-04-20] MEDS: hydrALAZINE 20mg/ml inj. IV SCH ×5 (01:15→20:59)
[2023-04-20] MEDS: HYDROmorphone inj. 0.5 MG/0.5 ML DISP.SYRIN IV PRN ×5 (01:16→16:55)
[2023-04-20] MEDS: SUCRALFATE 1 GM/10 ML PO SCH ×4 (07:00→21:21)
--- NOTE | 2023-04-20 07:23 | NUR ---
Problems reprioritized. Patient report given, questions answered & plan of care reviewed with BELINDA Hinojosa Pt stable at shift change.
[2023-04-20 07:28] LABS: MAGNESIUM 1.8 MG/DL (1.5-2.4)
[2023-04-20 07:32] LABS: POTASSIUM 2.6 MMOL/L (3.5-5.1)
[2023-04-20] MEDS: pantoprazole 40mg Tablet.DR PO SCH (08:00)
[2023-04-20] MEDS: BUPRENORPHINE HCL 2 MG SL SCH ×3 (08:00→21:00)
[2023-04-20] MEDS: FLUoxetine 20mg capsule PO SCH (08:00)
[2023-04-20] MEDS: ketorolac tromethamine 15mg/ml inj. IV PRN ×3 (08:51→21:11)
[2023-04-20] MEDS: potassium Cl 20mEq in NS 1,000 ML IV SCH ×2 (09:00→19:00)
--- NOTE | 2023-04-20 09:31 | NUR ---
TPN consult: Per physician progress note DKA resolved. Pt remains on CHO controlled diet though eating poorly, documented with 0% PO intake of all meals. Pt with a Groshong catheter per physician notes. TPN recommendations below have been d/w clinical pharmacist. LBM 04/15 per EMR. Will continue to follow closely and make recommendations as appropriate. Recommendations: 1) Continuous TPN per MD using 2:1 Clinimix-E 5/20 at 65 mL/hr goal with separate 100 mL 20% ILE to run for 12 hours daily at 8.33 mL/hr. To provide 1560 mL volume/day, 78 g AA, 312 g DEX (4.77 mg/kg/min), and 1573 kcal 2) Continue CHO controlled diet and encourage PO intake; pancreatic enzymes once pt eating 3) TG and PALB q Monday/ 4) Daily scaled wts 5) Consider jejunal feedings for long-term nutrition needs given functional gut and hx tolerating October 2020 prior to GJ removal same month. IF EN: Osmolite 1.2 at 55 mL/hr to provide 1320 mL volume/day, 1584 kcal, 1082 mL water, and 73 g protein. Additional 75 mL water flush Q4H; monitor serum Na 6) Bowel care per rx Addendum: 04/20/23 at [address] Amended: Links added.
[2023-04-20] MEDS: potassium Cl 40MEQ/1/2NS 520ml 520 ML IV PRN (10:32)
[2023-04-20 11:18] LABS: ALANINE AMINOTRANSFERASE 51 U/L (12-78); ALBUMIN 3.1 G/DL (3.4-5.0); ALBUMIN/GLOBULIN RATIO 0.9 (1.1-1.5); ALKALINE PHOSPHATASE 123 IU/L (46-116); ANION GAP 13 (8-16); ASPARTATE AMINO TRANSFERASE 43 U/L (10-37); BILIRUBIN,TOTAL 0.6 MG/DL (0.1-1.0); BLOOD UREA NITROGEN 2 MG/DL (7-18); BUN/CREATININE RATIO 3.4 (10.0-20.0); CALCIUM 9.2 MG/DL (8.5-10.1); CHLORIDE 98 MMOL/L (99-107); CREATININE 0.59 MG/DL (0.40-0.90); GLUCOSE 134 MG/DL (70-104); PHOSPHORUS 2.9 MG/DL (2.3-4.5); SODIUM 132 MMOL/L (135-145); TOTAL CARBON DIOXIDE 20.9 MMOL/L (24-32); TOTAL PROTEIN 6.4 G/DL (6.4-8.2); TRIGLYCERIDES 69 MG/DL (20-135); eCRCL 86 ML/MIN; eGFR > 90 ML/MIN
[2023-04-20] MEDS ORDERED: metoclopramide 5 mg/ml inj IV ONE (12:05)
[2023-04-20] MEDS ORDERED: Dextrose 10%-water IV solution 1,000 ML IV PRN ×2 (13:00)
[2023-04-20] MEDS: ZINC/COPPER/MANGANESE/SELENIUM 1 ML, chromic chloride inj. 10 MCG in AA 5 %/CALCIUM/LYT... IV SCH (15:11)
[2023-04-20] MEDS: PROTEASE PO SCH (19:39)
[2023-04-20] MEDS: apixaban 5mg tablet PO SCH (19:39)
[2023-04-20] MEDS: AMYLASE PO SCH (19:39)
[2023-04-20] MEDS: LIPASE PO SCH (19:39)
[2023-04-20] MEDS: carBAMazepine Ext. Release 200 MG TAB.ER.12H PO SCH (19:40)
[2023-04-20] MEDS: insulin glargine (Lantus) pen - multi-dose SQ SCH (21:00)
[2023-04-20] MEDS: metoclopramide 5 mg/ml inj IV SCH (21:26)
[2023-04-20] MEDS: fat emulsion 20% inj. 100 ML IV SCH (21:28)
[2023-04-21] VITALS (8 sets, daily range): BP systolic 117–194; BP diastolic 66–104; PULSE 86–109; RESP 14–18; TEMP 97.5–98.4; O2SAT 93–100
[2023-04-21] MEDS: HYDROmorphone inj. 0.5 MG/0.5 ML DISP.SYRIN IV PRN ×6 (01:27→22:48)
[2023-04-21] MEDS: metoclopramide 5 mg/ml inj IV SCH ×4 (01:34→19:41)
[2023-04-21] MEDS: hydrALAZINE 20mg/ml inj. IV SCH ×4 (01:35→19:43)
[2023-04-21] MEDS: ketorolac tromethamine 15mg/ml inj. IV PRN ×2 (03:10→16:34)
[2023-04-21] MEDS: potassium Cl 20mEq in NS 1,000 ML IV SCH ×2 (05:00→10:37)
--- NOTE | 2023-04-21 06:19 | NUR ---
Patient in room PCU 3015. I have received report from [] and had the opportunity to ask questions and assume patient care.
--- NOTE | 2023-04-21 06:42 | NUR ---
Patient in room PCU 3015. I have received report from ULYSSES PEREZ and had the opportunity to ask questions and assume patient care.
[2023-04-21] MEDS: FLUoxetine 20mg capsule PO SCH (07:30)
[2023-04-21] MEDS: apixaban 5mg tablet PO SCH ×2 (07:31→19:24)
[2023-04-21] MEDS: carBAMazepine Ext. Release 200 MG TAB.ER.12H PO SCH ×3 (07:31→19:23)
[2023-04-21] MEDS: pantoprazole 40mg Tablet.DR PO SCH (07:31)
[2023-04-21] MEDS: BUPRENORPHINE HCL 2 MG SL SCH ×3 (07:48→19:22)
[2023-04-21] MEDS: SUCRALFATE 1 GM/10 ML PO SCH ×3 (07:49→19:23)
[2023-04-21] MEDS: LIPASE PO SCH ×3 (07:50→19:23)
[2023-04-21] MEDS: PROTEASE PO SCH ×3 (07:50→19:23)
[2023-04-21] MEDS: AMYLASE PO SCH ×3 (07:50→19:23)
[2023-04-21] MEDS ORDERED: ergocalciferol (vit D2) capsule 50,000 UNITS (1,250mcg) CAPSULE PO SCH (08:00)
[2023-04-21] MEDS ORDERED: MVI, adult No.4 with vit. K 10 ML in dextrose 5% water 500ml 500 ML IV SCH ×2 (08:00)
[2023-04-21] MEDS: proCHLORperazine 10 MG/2 ml inj IV PRN ×3 (08:37→23:10)
[2023-04-21] MEDS: insulin Lispro (HumaLOG) vial - multi-dose SQ SCH ×3 (09:18→19:35)
[2023-04-21 10:03] LABS: ALANINE AMINOTRANSFERASE 34 U/L (12-78); ALBUMIN 2.6 G/DL (3.4-5.0); ALKALINE PHOSPHATASE 104 IU/L (46-116); ANION GAP 8 (8-16); ASPARTATE AMINO TRANSFERASE 31 U/L (10-37); BILIRUBIN,TOTAL 0.5 MG/DL (0.1-1.0); BLOOD UREA NITROGEN 4 MG/DL (7-18); BUN/CREATININE RATIO 6.3 (10.0-20.0); CALCIUM 8.4 MG/DL (8.5-10.1); CHLORIDE 99 MMOL/L (99-107); CREATININE 0.64 MG/DL (0.40-0.90); GLUCOSE 329 MG/DL (70-104); MAGNESIUM 1.7 MG/DL (1.5-2.4); PHOSPHORUS 3.4 MG/DL (2.3-4.5); SODIUM 131 MMOL/L (135-145); TOTAL CARBON DIOXIDE 24.2 MMOL/L (24-32); TOTAL PROTEIN 5.2 G/DL (6.4-8.2); eCRCL 80 ML/MIN; eGFR > 90 ML/MIN
[2023-04-21 10:08] LABS: POTASSIUM 2.9 MMOL/L (3.5-5.1)
--- NOTE | 2023-04-21 10:21 | NUR ---
PAGER ID: [phone] MESSAGE: CHRIS SAMUEL, PCU, 6933. RE: [id number]. PT. CRITICAL LAB K+ 2.9. AND PT. REFUSED ALL ORAL MEDS TODAY. GLORIA. THANKS
[2023-04-21] MEDS ORDERED: potassium Cl 20 mEq SR tablet PO PRN ×2 (11:50)
[2023-04-21] MEDS ORDERED: magnesium Cl slow-release 64mg tablet PO PRN (11:50)
[2023-04-21] MEDS ORDERED: magnesium 2GM in 50ml NS 50 ML IV PRN (11:50)
[2023-04-21] MEDS ORDERED: magnesium 4gm in 100ml NS 100 ML IV PRN (11:50)
[2023-04-21] MEDS: fat emulsion 20% inj. 100 ML IV SCH (12:53)
[2023-04-21] MEDS: ZINC/COPPER/MANGANESE/SELENIUM 1 ML, chromic chloride inj. 10 MCG in AA 5 %/CALCIUM/LYT... IV SCH (13:00)
[2023-04-21] MEDS: potassium Cl 40MEQ/1/2NS 520ml 520 ML IV PRN ×2 (13:18→17:40)
--- NOTE | 2023-04-21 14:44 | NUR ---
PAGER ID: [phone] MESSAGE: CHRIS SAMUEL, [facility], 1981. RE: [id number]. PT. STATES YOU WILL UP THE DILAUDID DOSAGE TO 1MG? FYI. THANKS
--- NOTE | 2023-04-21 18:08 | NUR ---
Problems reprioritized. Patient report given to roel RN, questions answered & plan of care reviewed with .
[2023-04-21] MEDS: ondansetron/PF 4mg/2ml inj IV PRN (19:52)
[2023-04-21] MEDS: K and/or MAG REPLACEMENT MC SCH (19:58)
[2023-04-21] MEDS: insulin glargine (Lantus) pen - multi-dose SQ SCH (21:00)
[2023-04-22] MEDS: potassium Cl 20mEq in NS 1,000 ML IV SCH ×2 (01:00→05:05)
[2023-04-22 02:00] VITALS: BP 153/90; PULSE 104; RESP 22; TEMP 97.4; O2SAT 96
[2023-04-22] MEDS: insulin regular, human U-100 3ml vial - multi-dose SQ SCH ×2 (02:27→08:01)
[2023-04-22] MEDS: metoclopramide 5 mg/ml inj IV SCH ×2 (02:41→08:30)
[2023-04-22] MEDS: hydrALAZINE 20mg/ml inj. IV SCH ×2 (02:42→08:29)
[2023-04-22] MEDS: HYDROmorphone inj. 0.5 MG/0.5 ML DISP.SYRIN IV PRN ×3 (02:45→11:05)
[2023-04-22] MEDS: ondansetron/PF 4mg/2ml inj IV PRN (03:04)
[2023-04-22] MEDS: ZINC/COPPER/MANGANESE/SELENIUM 1 ML, chromic chloride inj. 10 MCG in AA 5 %/CALCIUM/LYT... IV SCH (05:04)
[2023-04-22 06:00] VITALS: BP 115/58; PULSE 89; RESP 18; TEMP 99.1; O2SAT 97
--- NOTE | 2023-04-22 06:26 | NUR ---
Patient in room U 3015. I have received report from cesar PEREZ and had the opportunity to ask questions and assume patient care. Addendum: 04/22/23 at 0627 by Ashley Thompson RN Amended: Links added.
[2023-04-22] MEDS: SUCRALFATE 1 GM/10 ML PO SCH (07:00)
[2023-04-22 07:55] VITALS: RESP 18; O2SAT 97
[2023-04-22] MEDS: carBAMazepine Ext. Release 200 MG TAB.ER.12H PO SCH (08:00)
[2023-04-22] MEDS: PROTEASE PO SCH (08:00)
[2023-04-22] MEDS: apixaban 5mg tablet PO SCH (08:00)
[2023-04-22] MEDS: AMYLASE PO SCH (08:00)
[2023-04-22] MEDS: FLUoxetine 20mg capsule PO SCH (08:00)
[2023-04-22] MEDS: pantoprazole 40mg Tablet.DR PO SCH (08:00)
[2023-04-22] MEDS: BUPRENORPHINE HCL 2 MG SL SCH (08:00)
[2023-04-22] MEDS: K and/or MAG REPLACEMENT MC SCH (08:00)
[2023-04-22] MEDS: LIPASE PO SCH (08:00)
[2023-04-22 08:36] LABS: ALANINE AMINOTRANSFERASE 32 U/L (12-78); ALBUMIN 2.6 G/DL (3.4-5.0); ALBUMIN/GLOBULIN RATIO 0.8 (1.1-1.5); ALKALINE PHOSPHATASE 107 IU/L (46-116); ANION GAP 11 (8-16); ASPARTATE AMINO TRANSFERASE 21 U/L (10-37); BILIRUBIN,TOTAL 0.4 MG/DL (0.1-1.0); BLOOD UREA NITROGEN 9 MG/DL (7-18); BUN/CREATININE RATIO 18.4 (10.0-20.0); CHLORIDE 102 MMOL/L (99-107); CREATININE 0.49 MG/DL (0.40-0.90); GLUCOSE 145 MG/DL (70-104); MAGNESIUM 1.8 MG/DL (1.5-2.4); POTASSIUM 3.4 MMOL/L (3.5-5.1); SODIUM 135 MMOL/L (135-145); TOTAL CARBON DIOXIDE 22.5 MMOL/L (24-32); TOTAL PROTEIN 5.7 G/DL (6.4-8.2); eCRCL 104 ML/MIN; eGFR > 90 ML/MIN
[2023-04-22 11:00] VITALS: BP 135/89; PULSE 95; RESP 16; TEMP 98.5; O2SAT 98
[2023-04-22 11:05] VITALS: RESP 14
--- NOTE | 2023-04-22 12:44 | NUR ---
PAGER ID: [phone] MESSAGE: [id number] Steinberg. Is ready to go. States AMA is an option. Ashley U #[id number]
--- NOTE | 2023-04-22 12:56 | NUR ---
PAGER ID: [phone] MESSAGE: [id number] Elizabeth left AMA. Ashley TORRES
--- NOTE | 2023-04-22 12:58 | NUR ---
Pt left hospital [place]. I informed her that I spoke to and he would have orders ready in 30 min. She stated she did not want to wait as the TPN orders were already sent. I removed pt PIV. Flushed bilat Groshong ports with NS. Pt stated she would hep loc them when she got home. No items left in room. Pt walked out with . Addendum: 04/22/23 at 1301 by Ashley Thompson RN Amended: Links added.
== END 2023-04-22 12:55 | disposition left against medical advice (07) | DRG 420 ==
LOC: ER 19:49 → UNDOADMIN 04-16 03:16 → ED HOLD 04-16 03:16 → PCU 3S 04-18 00:44
PROVIDERS: ADMIT Family Medicine; ATTEND Internal Medicine
DX: E10.10 Type 1 diabetes mellitus with ketoacidosis without coma (principal); N17.0 Acute kidney failure with tubular necrosis; E87.1 Hypo-osmolality and hyponatremia; Z53.21 Procedure and treatment not carried out due to patient leaving prior to being seen by health care provider; E87.6 Hypokalemia; G89.29 Other chronic pain; M54.9 Dorsalgia, unspecified; F32.A Depression, unspecified; D72.829 Elevated white blood cell count, unspecified; D75.89 Other specified diseases of blood and blood-forming organs; E86.0 Dehydration; G43.909 Migraine, unspecified, not intractable, without status migrainosus; G40.909 Epilepsy, unspecified, not intractable, without status epilepticus; J45.909 Unspecified asthma, uncomplicated; Z87.11 Personal history of peptic ulcer disease; Z90.710 Acquired absence of both cervix and uterus; Z79.01 Long term (current) use of anticoagulants; Z79.899 Other long term (current) drug therapy; Z90.81 Acquired absence of spleen; Z90.411 Acquired partial absence of pancreas; Z87.891 Personal history of nicotine dependence
CPT/HCPCS: 36415; 36600; 71045; 80048; 80053; 81001; 82803; 82948; 83690; 83735; 84100; 84132; 84134; 84145; 84478; 85007; 85008; 85018; 85025; 85610; 85730; 87081; 96365; 96372; 99285; A4615; A6258; G0378; J0360; J0780; J1170; J1200; J1630; J1815; J1885; J2270; J2405; J2765; J3480; J3490; J7030; J7060; J7070

== ENCOUNTER 2023-04-29 10:23 | Inpatient (IN) | payer MEDICAID ==
[2023-04-29] VITALS (12 sets, daily range): BP systolic 85–130; BP diastolic 50–82; PULSE 84–95; RESP 12–17; TEMP 97.3–98.9; O2SAT 97–100
[~2023-04-29] VITALS: Ht 167.6 cm; Wt 45.5 kg
[~2023-04-29 10:23] MED LIST changes: +ERGO500093 PO; +HYDR25TA5 PO; +INSU100I31 SQ; +LIPA1CAP18 PO; -LORA-269 PO; +PANT-47 PO; -PANT40TA54 PO
[2023-04-29] MEDS ORDERED: pantoprazole 40mg IV 80 MG in normal saline 100ml IV soln 100 ML IV ONE (10:40)
[2023-04-29] MEDS ORDERED: normal saline 1000ML IV soln IV ONE (10:40)
--- NOTE | 2023-04-29 10:40 | NUR ---
PT DOES NOT HAVE DRESSING ON HER GROSHONG CATH IN LEFT UPPER CHEST. PT STATES THE DRESSING FELL OFF DURING HER SHOWER THIS AM. CYNTHIA PEREZ CLEANED WITH CHLORHEXADINE AND COVERED WITH TEGEDERM.
--- NOTE | 2023-04-29 11:05 | NUR ---
RN ATTEMPTING 2ND IV. NS BOLUS INFUSING.
--- NOTE | 2023-04-29 11:06 | NUR ---
PHARM NOTIFIED TO MODIFY PROTONIX ORD AND PER PHARM THEY ARE MAKING IT AND WILL SEND IT ONCE ITS PREPARED.
[2023-04-29] MEDS ORDERED: morphine 4 MG/ML inj SYRINge IV ONE (11:20)
--- NOTE | 2023-04-29 11:26 | NUR ---
RN STILL UNABLE TO GET 2ND IV. 2ND BOLUS NS INFUSING AT THIS TIME.
[2023-04-29 11:57] LABS: BASOPHILS # (AUTO) 0.1 X10'3 (0-0.2); BASOPHILS % (AUTO) 0.4 % (0-1); EOSINOPHILS % (AUTO) 0 % (0-6); HEMATOCRIT 35.4 % (35.0-45.0); HEMOGLOBIN 11.6 g/dl (12.0-16.0); LYMPHOCYTES # (AUTO) 0.5 X10'3 (1.1-4.8); LYMPHOCYTES % (AUTO) 2.2 % (21-51); MEAN CORPUSCULAR HEMOGLOBIN 33.1 PG (27.0-31.0); MEAN CORPUSCULAR HGB CONC 32.8 g/dL (33.0-36.5); MEAN PLATELET VOLUME 9.3 FL (7.4-10.4); MONOCYTES # (AUTO) 1.3 X10'3 (0-0.9); MONOCYTES % (AUTO) 6.2 % (2-12); NEUTROPHILS # (AUTO) 18.8 X10'3 (1.8-7.7); NEUTROPHILS % (AUTO) 91.2 % (42-75); PLATELET COUNT 336 X10'3 (140-440); RED BLOOD COUNT 3.51 X10'6 (4.20-5.60); RED CELL DISTRIBUTION WIDTH 15.5 % (11.5-14.5); WHITE BLOOD COUNT 20.7 X10'3 (4.5-11.0)
[2023-04-29 12:11] LABS: ALANINE AMINOTRANSFERASE 39 U/L (12-78); ALBUMIN 2.7 G/DL (3.4-5.0); ALBUMIN/GLOBULIN RATIO 0.7 (1.1-1.5); ALKALINE PHOSPHATASE 157 IU/L (46-116); ANION GAP 20 (8-16); ASPARTATE AMINO TRANSFERASE 49 U/L (10-37); BILIRUBIN,TOTAL 0.5 MG/DL (0.1-1.0); BLOOD UREA NITROGEN 20 MG/DL (7-18); BUN/CREATININE RATIO 20.4 (10.0-20.0); CALCIUM 9.1 MG/DL (8.5-10.1); CHLORIDE 91 MMOL/L (99-107); CREATININE 0.98 MG/DL (0.40-0.90); GLUCOSE 347 MG/DL (70-104); MAGNESIUM 1.8 MG/DL (1.5-2.4); PHOSPHORUS 3.8 MG/DL (2.3-4.5); POTASSIUM 3.1 MMOL/L (3.5-5.1); SODIUM 134 MMOL/L (135-145); TOTAL PROTEIN 6.6 G/DL (6.4-8.2); eCRCL 52 ML/MIN; eGFR 61 ML/MIN
[2023-04-29 12:17] LABS: APTT 25 SECONDS (22-32); INR 1.1 INR; PROTHROMBIN TIME 11.9 SECONDS (9.0-12.0)
[2023-04-29] MEDS ORDERED: potassium Cl 40MEQ/1/2NS 520ml 520 ML IV ONE (12:35)
--- NOTE | 2023-04-29 12:53 | NUR ---
Pt resting, alert and oriented. Able to make needs known. Reminded of U/A still needed.
[2023-04-29] MEDS ORDERED: potassium Cl 20 mEq SR tablet PO PRN ×2 (13:30)
[2023-04-29] MEDS ORDERED: sodium phosphate inj. 30 MMOL in dextrose 5%-water 250 ML IV PRN (13:30)
[2023-04-29] MEDS ORDERED: potassium Cl 40MEQ/1/2NS 520ml 520 ML IV PRN (13:30)
[2023-04-29] MEDS ORDERED: sodium bicarbonate (8.4%) inj. 100 MEQ in dextrose 5% water 500ml 500 ML IV PRN (13:30)
[2023-04-29] MEDS ORDERED: insulin regular, human U-100 3ml vial - multi-dose IV PRN (13:30)
[2023-04-29] MEDS ORDERED: potassium CL 20mEq in D5-1/2NS 1,000 ML IV PRN (13:30)
[2023-04-29] MEDS ORDERED: Insulin Reg/NS 100units/100mL 100 ML IV SCH (13:30)
[2023-04-29] MEDS ORDERED: normal saline 1000ml 1,000 ML IV SCH (13:30)
[2023-04-29] MEDS ORDERED: sodium bicarbonate (8.4%) inj. 50 MEQ in dextrose 5% water 500ml 250 ML IV PRN (13:30)
[2023-04-29] MEDS ORDERED: sodium phosphate inj. 15 MMOL in dextrose 5%-water 250 ML IV PRN (13:30)
[2023-04-29] MEDS ORDERED: Neutra Phos packet PO PRN (13:30)
[2023-04-29] MEDS: normal saline 1000ml 1,000 ML IV SCH ×3 (13:30→19:50)
--- NOTE | 2023-04-29 13:58 | NUR ---
PT K 3.1. 40MEQ K INFUSING IV. RN WILL HOLD INSULIN INFUSION/BOLUS AND STAT CMP ORD TO CAIN K LEVEL.
[2023-04-29 14:31] LABS: ALANINE AMINOTRANSFERASE 35 U/L (12-78); ALBUMIN 2.3 G/DL (3.4-5.0); ALBUMIN/GLOBULIN RATIO 0.7 (1.1-1.5); ALKALINE PHOSPHATASE 137 IU/L (46-116); ANION GAP 17 (8-16); ASPARTATE AMINO TRANSFERASE 66 U/L (10-37); BILIRUBIN,TOTAL 0.4 MG/DL (0.1-1.0); BLOOD UREA NITROGEN 17 MG/DL (7-18); BUN/CREATININE RATIO 19.5 (10.0-20.0); CALCIUM 8.4 MG/DL (8.5-10.1); CHLORIDE 98 MMOL/L (99-107); CREATININE 0.87 MG/DL (0.40-0.90); GLUCOSE 297 MG/DL (70-104); PHOSPHORUS 3.2 MG/DL (2.3-4.5); POTASSIUM 3.5 MMOL/L (3.5-5.1); SODIUM 136 MMOL/L (135-145); TOTAL PROTEIN 5.5 G/DL (6.4-8.2); eCRCL 59 ML/MIN; eGFR 70 ML/MIN
[2023-04-29] MEDS: pantoprazole 40MG/NS 100ML BAG 100 ML IV SCH ×2 (16:00→21:43)
[2023-04-29] MEDS ORDERED: fentaNYL/PF 50MCG/1 ML 2ML syringe ONE (16:12)
[2023-04-29] MEDS ORDERED: LIDOcaine Viscous 15ml cup ONE (16:12)
[2023-04-29] MEDS ORDERED: MIDAZolam 1 MG/ML 5ML VIAL ONE (16:12)
[2023-04-29] MEDS ORDERED: epiNEPHrine 0.1mg/ml 10ml syringe ONE (16:26)
[2023-04-29 17:19] LABS: HEMOGLOBIN A1C 8.8 % (4.5-6.2)
[2023-04-29] MEDS: HYDROmorphone/PF 0.2 MG/ML SYRINGE IV PRN ×2 (17:59→21:43)
--- NOTE | 2023-04-29 18:20 | NUR ---
Problems reprioritized. Patient report given, questions answered & plan of care reviewed with Lane. Addendum: 04/29/23 at 1820 by Randy Thomson RN Amended: Links added.
[2023-04-29 18:38] LABS: ALANINE AMINOTRANSFERASE 34 U/L (12-78); ALBUMIN 2.2 G/DL (3.4-5.0); ALBUMIN/GLOBULIN RATIO 0.7 (1.1-1.5); ALKALINE PHOSPHATASE 128 IU/L (46-116); ANION GAP 14 (8-16); ASPARTATE AMINO TRANSFERASE 47 U/L (10-37); BILIRUBIN,TOTAL 0.4 MG/DL (0.1-1.0); BLOOD UREA NITROGEN 16 MG/DL (7-18); CALCIUM 8.3 MG/DL (8.5-10.1); CHLORIDE 100 MMOL/L (99-107); CREATININE 0.84 MG/DL (0.40-0.90); GLUCOSE 303 MG/DL (70-104); POTASSIUM 3.6 MMOL/L (3.5-5.1); SODIUM 136 MMOL/L (135-145); TOTAL CARBON DIOXIDE 22.2 MMOL/L (24-32); TOTAL PROTEIN 5.3 G/DL (6.4-8.2); eCRCL 61 ML/MIN; eGFR 73 ML/MIN
[2023-04-29] MEDS ORDERED: dextrose 50%-water 50ml dispensing syringe IV PRN (19:50)
[2023-04-29] MEDS ORDERED: glucagon, human recombinant 1mg kit SUBCUT PRN (19:50)
[2023-04-29] MEDS ORDERED: MESSAGE TO PHARMACY PO ONE (19:50)
[2023-04-29] MEDS ORDERED: DEXTROSE 15 GM of carb/4 tabs (each vial/BOTTLE has 4 tablets) PO PRN ×2 (19:50)
[2023-04-29] MEDS ORDERED: insulin Lispro (HumaLOG) vial - multi-dose SQ SCH (19:50)
[2023-04-29] MEDS: K and/or MAG REPLACEMENT MC SCH (20:00)
[2023-04-29] MEDS: insulin glargine (Lantus) pen - multi-dose SQ SCH (21:28)
[2023-04-30] VITALS (8 sets, daily range): BP systolic 93–157; BP diastolic 54–97; PULSE 72–85; RESP 10–16; TEMP 98.4–99.8; O2SAT 98–100
[2023-04-30] MEDS: HYDROmorphone inj. 0.5 MG/0.5 ML DISP.SYRIN IV PRN ×6 (02:05→22:26)
[2023-04-30] MEDS: pantoprazole 40MG/NS 100ML BAG 100 ML IV SCH ×5 (02:06→21:14)
--- NOTE | 2023-04-30 06:49 | NUR ---
Patient in room PCU 3009. I have received report from Gomez PEREZ and had the opportunity to ask questions and assume patient care.
[2023-04-30 07:10] LABS: BASOPHILS # (AUTO) 0.1 X10'3 (0-0.2); BASOPHILS % (AUTO) 0.5 % (0-1); EOSINOPHILS % (AUTO) 0.1 % (0-6); HEMOGLOBIN 8.9 g/dl (12.0-16.0); LYMPHOCYTES # (AUTO) 1.4 X10'3 (1.1-4.8); LYMPHOCYTES % (AUTO) 10.6 % (21-51); MEAN CORPUSCULAR HEMOGLOBIN 33.4 PG (27.0-31.0); MEAN CORPUSCULAR HGB CONC 32.9 g/dL (33.0-36.5); MEAN CORPUSCULAR VOLUME 101.5 FL (78-98); MEAN PLATELET VOLUME 8.6 FL (7.4-10.4); MONOCYTES # (AUTO) 0.8 X10'3 (0-0.9); MONOCYTES % (AUTO) 6.3 % (2-12); NEUTROPHILS # (AUTO) 11.1 X10'3 (1.8-7.7); NEUTROPHILS % (AUTO) 82.5 % (42-75); PLATELET COUNT 289 X10'3 (140-440); RED BLOOD COUNT 2.66 X10'6 (4.20-5.60); RED CELL DISTRIBUTION WIDTH 15.5 % (11.5-14.5); WHITE BLOOD COUNT 13.5 X10'3 (4.5-11.0)
[2023-04-30 07:22] LABS: ALANINE AMINOTRANSFERASE 31 U/L (12-78); ALBUMIN 2.1 G/DL (3.4-5.0); ALBUMIN/GLOBULIN RATIO 0.7 (1.1-1.5); ALKALINE PHOSPHATASE 123 IU/L (46-116); ANION GAP 8 (8-16); ASPARTATE AMINO TRANSFERASE 32 U/L (10-37); BILIRUBIN,TOTAL 0.3 MG/DL (0.1-1.0); BLOOD UREA NITROGEN 9 MG/DL (7-18); BUN/CREATININE RATIO 11.4 (10.0-20.0); CALCIUM 8.4 MG/DL (8.5-10.1); CHLORIDE 101 MMOL/L (99-107); CREATININE 0.79 MG/DL (0.40-0.90); GLUCOSE 130 MG/DL (70-104); MAGNESIUM 1.7 MG/DL (1.5-2.4); PHOSPHORUS 2.2 MG/DL (2.3-4.5); POTASSIUM 3.2 MMOL/L (3.5-5.1); SODIUM 133 MMOL/L (135-145); TOTAL CARBON DIOXIDE 24.4 MMOL/L (24-32); TOTAL PROTEIN 5.1 G/DL (6.4-8.2); eCRCL 65 ML/MIN; eGFR 79 ML/MIN
[2023-04-30] MEDS: K and/or MAG REPLACEMENT MC SCH ×2 (08:00→20:00)
--- NOTE | 2023-04-30 09:46 | NUR ---
Taking over care of patient.
[2023-04-30] MEDS: normal saline 1000ml 1,000 ML IV SCH ×2 (10:05→23:05)
--- NOTE | 2023-04-30 10:23 | NUR ---
TPN consult: Pt admit for DKA, hematemesis, hypokalemia, and mild hyponatremia. Noted pt with a low BMI of 16.2 this admit. Scaled wt of 45.45kg (100 pounds) though pt chronically with a low BMI. Per RN malnutrition screen pt reports no recent weight loss and a decreased in PO intake/appetite though has been receiving nutrition through tank terminal gauger TPN. Pt presents with an A1c of 8.8% and BG of 347mg/dl this admit. Diabetes nutrition education not appropriate given PN dependence. Pt hx chronic TPN for pancreatitis despite having GJ placed October 2020 and tolerating EN at that time but GJ then removed later that month for "increased pain" per EMR. See TPN recs below however Pt would benefit from transition to jejunal feeds to optimize long-term nutrition status given hx if within POC. No BM yet this admit and pt reported LBM on 04/22 per EMR not receiving routine bowel care; discussed with RN and paged physician. Will monitor for PN tolerance and further nutrition intervention needs this admit. Recommendations: 1) Continuous TPN per MD using 2:1 Clinimix-E 11/19 at 65 mL/hr goal with separate 100 mL 20% ILE to run for 12 hours daily at 8.33 mL/hr. To provide 1560 mL volume/day, 78 g AA, 312 g DEX (4.77 mg/kg/min), and 1573 kcal 2) TG and PALB q Monday/ 3) Daily scaled wts 4) Consider jejunal feedings for long-term nutrition needs given functional gut and hx tolerating October 2020 prior to GJ removal same month. IF EN: Osmolite 1.2 at 55 mL/hr to provide 1320 mL volume/day, 1584 kcal, 1082 mL water, and 73 g protein. Additional 75 mL water flush Q4H; monitor serum Na 5) Bowel care per rx Addendum: 04/30/23 at [address] Amended: Links added.
[2023-04-30] MEDS ORDERED: Dextrose 10%-water IV solution 1,000 ML IV PRN (10:55)
[2023-04-30] MEDS: potassium Cl 40MEQ/1/2NS 520ml 520 ML IV PRN (11:01)
[2023-04-30 11:37] LABS: PREALBUMIN 14.5 MG/DL (19-36); TRIGLYCERIDES 111 MG/DL (20-135)
[2023-04-30] MEDS: fat emulsion 20% inj. 100 ML IV SCH (12:29)
[2023-04-30] MEDS: ZINC/COPPER/MANGANESE/SELENIUM 1 ML, chromic chloride inj. 10 MCG in AA 5 %/CALCIUM/LYT... IV SCH (12:29)
[2023-04-30] MEDS: dextrose 50%-water 50ml dispensing syringe IV PRN (12:58)
[2023-04-30 14:36] LABS: H PYLORI ANTIBODY NEGATIVE (Neg)
--- NOTE | 2023-04-30 15:06 | NUR ---
F/u: Per discussion with pt during RD visit pt is agreeable to alternative nutrition support such as GJ/PEG tube if MD agreeable. Addendum: 04/30/23 at [address] Amended: Links added.
--- NOTE | 2023-04-30 18:57 | NUR ---
Report given to Lori PEREZ, pt resting comfortably at this time.
[2023-04-30] MEDS: insulin glargine (Lantus) pen - multi-dose SQ SCH (21:13)
[2023-04-30] MEDS ORDERED: morphine 2 MG/ML inj. syringe IV PRN ×2 (22:30→22:40)
[2023-04-30] MEDS ORDERED: dextrose 50%-water 50ml dispensing syringe IV PRN ×2 (22:30)
[2023-04-30] MEDS ORDERED: insulin Lispro (HumaLOG) vial - multi-dose SQ SCH (22:30)
[2023-04-30] MEDS ORDERED: glucagon, human recombinant 1mg kit SUBCUT PRN (22:30)
[2023-04-30] MEDS ORDERED: DEXTROSE 15 GM of carb/4 tabs (each vial/BOTTLE has 4 tablets) PO PRN ×2 (22:30)
[2023-04-30] MEDS ORDERED: HYDROcodone/acetaminophen 5mg/325mg tablet PO PRN (22:30)
[2023-05-01] VITALS (9 sets, daily range): BP systolic 110–133; BP diastolic 69–86; PULSE 68–81; RESP 14–20; TEMP 97.4–99.6; O2SAT 97–100
[2023-05-01] MEDS: pantoprazole 40MG/NS 100ML BAG 100 ML IV SCH ×5 (01:00→21:19)
[2023-05-01] MEDS: HYDROmorphone inj. 0.5 MG/0.5 ML DISP.SYRIN IV PRN ×6 (02:49→23:48)
--- NOTE | 2023-05-01 06:30 | NUR ---
Problems reprioritized. Patient report given, questions answered & plan of care reviewed with Zoe
[2023-05-01 06:38] LABS: BASOPHILS % (AUTO) 0.5 % (0-1); EOSINOPHILS % (AUTO) 0.5 % (0-6); HEMATOCRIT 22.4 % (35.0-45.0); HEMOGLOBIN 7.6 g/dl (12.0-16.0); LYMPHOCYTES # (AUTO) 1.3 X10'3 (1.1-4.8); LYMPHOCYTES % (AUTO) 15.3 % (21-51); MEAN CORPUSCULAR HEMOGLOBIN 33.9 PG (27.0-31.0); MEAN CORPUSCULAR HGB CONC 33.8 g/dL (33.0-36.5); MEAN CORPUSCULAR VOLUME 100.2 FL (78-98); MEAN PLATELET VOLUME 8.6 FL (7.4-10.4); MONOCYTES # (AUTO) 0.5 X10'3 (0-0.9); MONOCYTES % (AUTO) 6.4 % (2-12); NEUTROPHILS # (AUTO) 6.4 X10'3 (1.8-7.7); NEUTROPHILS % (AUTO) 77.3 % (42-75); PLATELET COUNT 265 X10'3 (140-440); RED BLOOD COUNT 2.23 X10'6 (4.20-5.60); RED CELL DISTRIBUTION WIDTH 15.1 % (11.5-14.5); WHITE BLOOD COUNT 8.3 X10'3 (4.5-11.0)
--- NOTE | 2023-05-01 06:45 | NUR ---
Patient in room PCU 3009. I have received report from CHRIS BROWN and had the opportunity to ask questions and assume patient care.
[2023-05-01 07:17] LABS: ALBUMIN 1.8 G/DL (3.4-5.0); ANION GAP 8 (8-16); BILIRUBIN,TOTAL 0.1 MG/DL (0.1-1.0); BLOOD UREA NITROGEN 4 MG/DL (7-18); BUN/CREATININE RATIO 6.3 (10.0-20.0); CALCIUM 8.1 MG/DL (8.5-10.1); CHLORIDE 99 MMOL/L (99-107); CREATININE 0.63 MG/DL (0.40-0.90); GLUCOSE 284 MG/DL (70-104); MAGNESIUM 1.5 MG/DL (1.5-2.4); PHOSPHORUS 2.1 MG/DL (2.3-4.5); SODIUM 130 MMOL/L (135-145); TOTAL CARBON DIOXIDE 22.6 MMOL/L (24-32); TOTAL PROTEIN 4.6 G/DL (6.4-8.2); eCRCL 81 ML/MIN; eGFR > 90 ML/MIN
[2023-05-01 07:18] LABS: ALANINE AMINOTRANSFERASE 39 U/L (12-78); ALBUMIN/GLOBULIN RATIO 0.6 (1.1-1.5); ALKALINE PHOSPHATASE 119 IU/L (46-116); ASPARTATE AMINO TRANSFERASE 43 U/L (10-37); PREALBUMIN 12.5 MG/DL (19-36); TRIGLYCERIDES 104 MG/DL (20-135)
[2023-05-01] MEDS ORDERED: sodium phosphate inj. 15 MMOL in dextrose 5%-water 250 ML IV ONE (08:00)
[2023-05-01] MEDS: potassium Cl 40MEQ/1/2NS 520ml 520 ML IV PRN ×2 (08:33→19:57)
[2023-05-01] MEDS: insulin regular, human U-100 3ml vial - multi-dose SQ SCH ×2 (08:42→21:06)
[2023-05-01] MEDS ORDERED: diphenhydrAMINE 25mg capsule PO PRN ×2 (08:50→12:40)
[2023-05-01] MEDS ORDERED: insulin regular, human U-100 3ml vial - multi-dose SQ SCH (11:24)
[2023-05-01] MEDS ORDERED: HYDROchlorothiazide 25mg tablet PO PRN (11:25)
[2023-05-01] MEDS ORDERED: metoclopramide 10mg tablet PO PRN (11:40)
[2023-05-01] MEDS ORDERED: ergocalciferol (vit D2) capsule 50,000 UNITS (1,250mcg) CAPSULE PO SCH (12:30)
[2023-05-01] MEDS ORDERED: BUPRENORPHINE HCL 2 MG SL SCH (13:00)
[2023-05-01] MEDS: ZINC/COPPER/MANGANESE/SELENIUM 1 ML, chromic chloride inj. 10 MCG in AA 5 %/CALCIUM/LYT... IV SCH (13:20)
[2023-05-01] MEDS: fat emulsion 20% inj. 100 ML IV SCH (13:27)
[2023-05-01] MEDS: normal saline 1000ml 1,000 ML IV SCH ×2 (14:40→19:08)
[2023-05-01] MEDS: carBAMazepine Ext. Release 200 MG TAB.ER.12H PO SCH ×2 (14:45→21:20)
[2023-05-01] MEDS: sucralfate 1 gm tablet PO SCH ×3 (14:49→21:00)
[2023-05-01] MEDS: LIPASE/PROTEASE/AMYLASE 10,500 units CAPSULE.DR PO SCH ×2 (14:50→21:00)
--- NOTE | 2023-05-01 17:30 | NUR ---
Student documentation: I have reviewed and agree with all interventions, assessments performed and documented by TOAN MARRERO.
[2023-05-01 17:40] LABS: BILIRUBIN,URINE NEGATIVE (Neg); CLARITY,URINE SLIGHTLY CLOUDY (Clear); COLOR,URINE STRAW (Yellow); GLUCOSE, URINE 100 mg/dl (Neg); KETONES,URINE NEGATIVE (Neg); LEUKOCYTE ESTERASE ,URINE TRACE (Neg); NITRITES, URINE NEGATIVE (Neg); OCCULT BLOOD,URINE NEGATIVE (Neg); PROTEIN,URINE NEGATIVE (Neg); UROBILINOGEN,URINE 0.2 E.U/dL (0.2-1.0)
[2023-05-01 17:57] LABS: UA COLLECTION TYPE CLN CATCH MIDSTREAM
[2023-05-01 17:58] LABS: RBC,URINE NONE SEEN /HPF (0-2)
[2023-05-01 17:59] LABS: BACTERIA,URINE 1+ /HPF (Neg); SQUAMOUS EPITHELIAL CELL,UR FEW /LPF (FEW); YEAST FEW /HPF (NEGATIVE)
--- NOTE | 2023-05-01 18:30 | NUR ---
Patient in room PCU 3009. I have received report from YELITZA and had the opportunity to ask questions and assume patient care.
[2023-05-01] MEDS: K and/or MAG REPLACEMENT MC SCH ×2 (18:36→20:00)
--- NOTE | 2023-05-01 19:08 | NUR ---
Problems reprioritized. Patient report given, questions answered & plan of care reviewed with CHRIS OLSON.
[2023-05-01] MEDS ORDERED: insulin glargine (Lantus) pen - multi-dose SQ SCH (21:00)
[2023-05-01] MEDS: insulin glargine (Lantus) pen - multi-dose SQ SCH (21:07)
[2023-05-02 02:00] VITALS: BP 119/74; PULSE 85; RESP 16; O2SAT 98
[2023-05-02] MEDS: dextrose 50%-water 50ml dispensing syringe IV PRN (02:10)
[2023-05-02] MEDS: pantoprazole 40MG/NS 100ML BAG 100 ML IV SCH ×3 (02:21→11:50)
[2023-05-02] MEDS: insulin regular, human U-100 3ml vial - multi-dose SQ SCH ×2 (02:26→09:06)
[2023-05-02] MEDS: HYDROmorphone inj. 0.5 MG/0.5 ML DISP.SYRIN IV PRN ×3 (03:35→11:43)
[2023-05-02] MEDS: normal saline 1000ml 1,000 ML IV SCH (05:28)
[2023-05-02 05:55] LABS: BASOPHILS # (AUTO) 0.1 X10'3 (0-0.2); BASOPHILS % (AUTO) 0.8 % (0-1); EOSINOPHILS # (AUTO) 0.1 X10'3 (0-0.9); EOSINOPHILS % (AUTO) 0.7 % (0-6); HEMATOCRIT 27.7 % (35.0-45.0); HEMOGLOBIN 9.4 g/dl (12.0-16.0); LYMPHOCYTES # (AUTO) 1.1 X10'3 (1.1-4.8); MEAN CORPUSCULAR HEMOGLOBIN 33.5 PG (27.0-31.0); MEAN CORPUSCULAR VOLUME 98.6 FL (78-98); MEAN PLATELET VOLUME 8.5 FL (7.4-10.4); MONOCYTES # (AUTO) 0.5 X10'3 (0-0.9); MONOCYTES % (AUTO) 6.7 % (2-12); NEUTROPHILS # (AUTO) 6.1 X10'3 (1.8-7.7); NEUTROPHILS % (AUTO) 77.8 % (42-75); PLATELET COUNT 328 X10'3 (140-440); RED BLOOD COUNT 2.81 X10'6 (4.20-5.60); RED CELL DISTRIBUTION WIDTH 15.5 % (11.5-14.5); WHITE BLOOD COUNT 7.8 X10'3 (4.5-11.0)
[2023-05-02 06:00] VITALS: BP 130/85; PULSE 71; RESP 16; TEMP 98.8; O2SAT 99
--- NOTE | 2023-05-02 06:29 | NUR ---
Problems reprioritized. Patient report given, questions answered & plan of care reviewed with YELITZA.
[2023-05-02 06:37] LABS: ALANINE AMINOTRANSFERASE 50 U/L (12-78); ALBUMIN 1.9 G/DL (3.4-5.0); ALBUMIN/GLOBULIN RATIO 0.6 (1.1-1.5); ALKALINE PHOSPHATASE 125 IU/L (46-116); ANION GAP 8 (8-16); ASPARTATE AMINO TRANSFERASE 53 U/L (10-37); BILIRUBIN,TOTAL 0.3 MG/DL (0.1-1.0); BLOOD UREA NITROGEN 7 MG/DL (7-18); BUN/CREATININE RATIO 15.2 (10.0-20.0); CALCIUM 8.2 MG/DL (8.5-10.1); CHLORIDE 105 MMOL/L (99-107); CREATININE 0.46 MG/DL (0.40-0.90); GLUCOSE 78 MG/DL (70-104); MAGNESIUM 1.6 MG/DL (1.5-2.4); PHOSPHORUS 3.4 MG/DL (2.3-4.5); POTASSIUM 3.6 MMOL/L (3.5-5.1); SODIUM 136 MMOL/L (135-145); TOTAL CARBON DIOXIDE 22.9 MMOL/L (24-32); eCRCL 111 ML/MIN; eGFR > 90 ML/MIN
[2023-05-02 07:00] VITALS: RESP 14; O2SAT 97
[2023-05-02] MEDS: sucralfate 1 gm tablet PO SCH ×2 (07:00→11:48)
[2023-05-02] MEDS: LIPASE/PROTEASE/AMYLASE 10,500 units CAPSULE.DR PO SCH (07:40)
[2023-05-02] MEDS: carBAMazepine Ext. Release 200 MG TAB.ER.12H PO SCH (07:41)
[2023-05-02] MEDS ORDERED: pantoprazole 40mg Tablet.DR PO SCH (08:00)
[2023-05-02] MEDS ORDERED: insulin glargine (Lantus) pen - multi-dose SQ SCH (08:00)
[2023-05-02] MEDS ORDERED: FLUoxetine 20mg capsule PO SCH (08:00)
[2023-05-02] MEDS ORDERED: MVI, adult No.4 with vit. K 10 ML in dextrose 5% water 500ml 500 ML IV SCH ×2 (08:00)
[2023-05-02] MEDS: K and/or MAG REPLACEMENT MC SCH (08:43)
[2023-05-02 11:00] VITALS: BP 129/80; PULSE 79; RESP 17; TEMP 98.9; O2SAT 95
[2023-05-02] MEDS: fat emulsion 20% inj. 100 ML IV SCH (11:50)
[2023-05-02] MEDS: ZINC/COPPER/MANGANESE/SELENIUM 1 ML, chromic chloride inj. 10 MCG in AA 5 %/CALCIUM/LYT... IV SCH (11:50)
--- NOTE | 2023-05-02 12:00 | NUR ---
Student documentation: I have reviewed and agree with all interventions, assessments performed and documented by TOAN MARRERO.
[2023-05-02] MEDS ORDERED: HYDROcodone/acetaminophen 5mg/325mg tablet PO PRN (12:35)
[2023-05-02] MEDS ORDERED: HYDROcodone/acetaminophen 10/325mg tab PO PRN (12:35)
[2023-05-02 12:49] VITALS: RESP 15
--- NOTE | 2023-05-02 13:30 | NUR ---
PATIENT LEFT AMA, PATIENT WOULD NOT WAIT TO BE DISCHARGED, IVS REMOVED, GROSHON SALINE LOCKED, PATIENT WALKED OUT WITH
== END 2023-05-02 13:50 | disposition left against medical advice (07) | DRG 420 ==
LOC: ER 10:24 → ED HOLD 13:34 → PCU 3S 15:18
PROVIDERS: ADMIT Internal Medicine; ATTEND Internal Medicine
PROC: 0DJ08ZZ Inspection of Upper Intestinal Tract, Via Natural or Artificial Opening Endoscopic (ICD-10-PCS; principal; 2023-04-29)
PROC: 30233N1 Transfusion of Nonautologous Red Blood Cells into Peripheral Vein, Percutaneous Approach (ICD-10-PCS; 2023-05-01)
DX: E11.10 Type 2 diabetes mellitus with ketoacidosis without coma (principal); E43 Unspecified severe protein-calorie malnutrition; K92.0 Hematemesis; D62 Acute posthemorrhagic anemia; D72.829 Elevated white blood cell count, unspecified; E87.6 Hypokalemia; G40.909 Epilepsy, unspecified, not intractable, without status epilepticus; G89.29 Other chronic pain; F32.A Depression, unspecified; E87.1 Hypo-osmolality and hyponatremia; Z68.1 Body mass index [BMI] 19.9 or less, adult; J45.909 Unspecified asthma, uncomplicated; Z87.11 Personal history of peptic ulcer disease; Z87.891 Personal history of nicotine dependence; Z90.411 Acquired partial absence of pancreas; Z90.710 Acquired absence of both cervix and uterus; Z90.81 Acquired absence of spleen; Z56.0 Unemployment, unspecified
CPT/HCPCS: 36415; 36430; 43255; 71045; 80053; 81001; 82948; 83036; 83605; 83735; 84100; 84134; 84145; 84478; 84484; 85025; 85610; 85730; 86677; 86885; 86900; 86901; 86920; 87040; 87081; 96365; 96375; 99152; 99153; 99285; A4620; A6258; C9113; G0378; J0171; J1170; J1815; J2250; J2270; J3010; J3480; J3490; J7030; J7060; P9016

== ENCOUNTER 2023-08-07 10:20 | Inpatient (IN) | payer MEDICAID ==
[~2023-08-07] VITALS: Ht 167.6 cm; Wt 47.4 kg
[~2023-08-07 10:20] MED LIST changes: -INSU100V30 SQ; +INSU100V64 SQ
[2023-08-07] MEDS ORDERED: AMOX875T2 PO (10:57)
[2023-08-07] MEDS ORDERED: DICY20TA12 PO (10:57)
[2023-08-07] MEDS ORDERED: MV-M1TAB57 PO (10:57)
[2023-08-07] MEDS ORDERED: PRAZ1CAP5 PO (10:57)
[2023-08-07 11:09] VITALS: RESP 18; O2SAT 95
[2023-08-07 11:09] LABS: BASOPHILS # (AUTO) 0.1 X10'3 (0-0.2); BASOPHILS % (AUTO) 0.7 % (0-1); HEMOGLOBIN 10.9 g/dl (12.0-16.0); RED CELL DISTRIBUTION WIDTH 17.6 % (11.5-14.5)
[2023-08-07 11:11] LABS: EOSINOPHILS % (AUTO) 0.2 % (0-6); HEMATOCRIT 33.1 % (35.0-45.0); LYMPHOCYTES % (AUTO) 11.3 % (21-51); MEAN CORPUSCULAR HEMOGLOBIN 31.7 PG (27.0-31.0); MEAN PLATELET VOLUME 8.6 FL (7.4-10.4); MONOCYTES # (AUTO) 0.7 X10'3 (0-0.9); MONOCYTES % (AUTO) 7.9 % (2-12); NEUTROPHILS # (AUTO) 7.3 X10'3 (1.8-7.7); NEUTROPHILS % (AUTO) 79.9 % (42-75); PLATELET COUNT 678 X10'3 (140-440); RED BLOOD COUNT 3.44 X10'6 (4.20-5.60); WHITE BLOOD COUNT 9.1 X10'3 (4.5-11.0)
[2023-08-07 11:20] LABS: INR 1.4 INR; PROTHROMBIN TIME 14.6 SECONDS (9.0-12.0)
[2023-08-07 11:23] VITALS: BP 118/71; PULSE 62; RESP 16; TEMP 97.4; O2SAT 95
[2023-08-07 11:52] LABS: ANISOCYTOSIS 1+; LARGE PLATELETS FEW; PLATELET ESTIMATE INCREASED
[2023-08-07 11:53] LABS: ACANTHOCYTES FEW; TARGET CELLS FEW
[2023-08-07] MEDS ORDERED: morphine 2 MG/ML inj. syringe ONE (11:56)
[2023-08-07] MEDS: normal saline 1000ml 1,000 ML IV PRN (12:03)
[2023-08-07] MEDS: morphine 2 MG/ML inj. syringe IV PRN (12:05)
[2023-08-07 12:17] LABS: ALANINE AMINOTRANSFERASE 12 U/L (12-78); ALBUMIN/GLOBULIN RATIO 0.5 (1.1-1.5); ALKALINE PHOSPHATASE 240 IU/L (46-116); ANION GAP 10 (8-16); ASPARTATE AMINO TRANSFERASE 9 U/L (10-37); BILIRUBIN,TOTAL 0.4 MG/DL (0.1-1.0); BLOOD UREA NITROGEN 3 MG/DL (7-18); BUN/CREATININE RATIO 5.5 (10.0-20.0); CALCIUM 8.2 MG/DL (8.5-10.1); CHLORIDE 101 MMOL/L (99-107); CREATININE 0.55 MG/DL (0.40-0.90); GLUCOSE 140 MG/DL (70-104); SODIUM 139 MMOL/L (135-145); TOTAL CARBON DIOXIDE 27.6 MMOL/L (24-32); TOTAL PROTEIN 6.3 G/DL (6.4-8.2); eCRCL 86 ML/MIN; eGFR > 90 ML/MIN
[2023-08-07 12:19] LABS: POTASSIUM 2.4 MMOL/L (3.5-5.1)
[2023-08-07] MEDS ORDERED: HYDROcodone/acetaminophen 5mg/325mg tablet PO PRN (14:00)
[2023-08-07] MEDS ORDERED: magnesium Cl slow-release 64mg tablet PO PRN (14:00)
[2023-08-07] MEDS ORDERED: glucagon, human recombinant 1mg kit SUBCUT PRN (14:00)
[2023-08-07] MEDS ORDERED: mag hydrox/Alum hydrox/simeth 30ml oral suspension PO PRN (14:00)
[2023-08-07] MEDS ORDERED: magnesium 2GM in 50ml NS 50 ML IV PRN (14:00)
[2023-08-07] MEDS ORDERED: magnesium hydroxide 30ml (MOM) UD suspension PO PRN (14:00)
[2023-08-07] MEDS ORDERED: normal saline 1000ml 1,000 ML IV SCH (14:00)
[2023-08-07] MEDS ORDERED: acetaminophen 325mg tablet PO PRN (14:00)
[2023-08-07] MEDS: MESSAGE TO PHARMACY PO ONE (14:00)
[2023-08-07] MEDS ORDERED: magnesium 4gm in 100ml NS 100 ML IV PRN (14:00)
[2023-08-07] MEDS ORDERED: dextrose 50%-water 50ml dispensing syringe IV PRN (14:00)
[2023-08-07] MEDS ORDERED: potassium Cl 20 mEq SR tablet PO PRN (14:00)
[2023-08-07] MEDS ORDERED: DEXTROSE 15 GM of carb/4 tabs (each vial/BOTTLE has 4 tablets) PO PRN ×2 (14:00)
[2023-08-07] MEDS: HYDROmorphone/PF 0.2 MG/ML SYRINGE IV PRN (14:35)
[2023-08-07] MEDS: potassium Cl 40MEQ/1/2NS 520ml 520 ML IV PRN (14:37)
[2023-08-07] MEDS ORDERED: Dextrose 10%-water IV solution 1,000 ML IV PRN (16:35)
[2023-08-07 17:11] LABS: PHOSPHORUS 3.6 MG/DL (2.3-4.5); PREALBUMIN 12.2 MG/DL (19-36); TRIGLYCERIDES 131 MG/DL (20-135)
[2023-08-07] MEDS: docusate sod 100mg capsule PO SCH (20:00)
[2023-08-07] MEDS: heparin, porcine 5000 units/ml vial SQ SCH (20:40)
[2023-08-07] MEDS: K and/or MAG REPLACEMENT MC SCH (20:44)
[2023-08-07] MEDS: fat emulsion 20% inj. 100 ML IV SCH (20:44)
[2023-08-07] MEDS: HYDROcodone/acetaminophen 10/325mg tab PO PRN (20:52)
[2023-08-07] MEDS: ondansetron/PF 4mg/2ml inj IV PRN (20:53)
[2023-08-07] MEDS: insulin glargine (Lantus) pen - multi-dose SQ SCH (21:00)
[2023-08-07 22:00] VITALS: BP 126/76; PULSE 68; RESP 16; TEMP 97.8; O2SAT 95
[2023-08-07] MEDS: VANCOMYCIN 750MG IV in NS 250 ML IV SCH (22:38)
[2023-08-08] MEDS: Melatonin 3mg tablet PO PRN (00:12)
[2023-08-08] MEDS: HYDROmorphone/PF 0.2 MG/ML SYRINGE IV ONE ×2 (00:12→10:50)
[2023-08-08] MEDS ORDERED: vancomycin inj 2,000 MG in normal saline 500ml IV soln 500 ML IV SCH (08:00)
[2023-08-08 08:15] LABS: BASOPHILS # (AUTO) 0.1 X10'3 (0-0.2); EOSINOPHILS % (AUTO) 0.2 % (0-6); HEMATOCRIT 29.3 % (35.0-45.0); HEMOGLOBIN 9.5 g/dl (12.0-16.0); LYMPHOCYTES # (AUTO) 0.7 X10'3 (1.1-4.8); LYMPHOCYTES % (AUTO) 8.5 % (21-51); MEAN CORPUSCULAR HEMOGLOBIN 31.1 PG (27.0-31.0); MEAN CORPUSCULAR HGB CONC 32.3 g/dL (33.0-36.5); MEAN CORPUSCULAR VOLUME 96.1 FL (78-98); MEAN PLATELET VOLUME 9.1 FL (7.4-10.4); MONOCYTES # (AUTO) 0.5 X10'3 (0-0.9); MONOCYTES % (AUTO) 6.6 % (2-12); NEUTROPHILS # (AUTO) 6.6 X10'3 (1.8-7.7); NEUTROPHILS % (AUTO) 83.7 % (42-75); PLATELET COUNT 702 X10'3 (140-440); RED BLOOD COUNT 3.05 X10'6 (4.20-5.60); RED CELL DISTRIBUTION WIDTH 18.1 % (11.5-14.5); WHITE BLOOD COUNT 7.9 X10'3 (4.5-11.0)
[2023-08-08] MEDS: MVI, adult No.4 with vit. K 10 ML in dextrose 5% water 500ml 500 ML IV SCH (08:16)
[2023-08-08 08:37] LABS: ALANINE AMINOTRANSFERASE 10 U/L (12-78); ALBUMIN 1.6 G/DL (3.4-5.0); ALBUMIN/GLOBULIN RATIO 0.4 (1.1-1.5); ALKALINE PHOSPHATASE 206 IU/L (46-116); ANION GAP 9 (8-16); ASPARTATE AMINO TRANSFERASE 9 U/L (10-37); BILIRUBIN,TOTAL 0.3 MG/DL (0.1-1.0); BLOOD UREA NITROGEN 7 MG/DL (7-18); BUN/CREATININE RATIO 13.7 (10.0-20.0); CALCIUM 7.9 MG/DL (8.5-10.1); CHLORIDE 104 MMOL/L (99-107); CREATININE 0.51 MG/DL (0.40-0.90); GLUCOSE 197 MG/DL (70-104); MAGNESIUM 1.8 MG/DL (1.5-2.4); POTASSIUM 3.7 MMOL/L (3.5-5.1); SODIUM 137 MMOL/L (135-145); TOTAL CARBON DIOXIDE 24.2 MMOL/L (24-32); TOTAL PROTEIN 5.4 G/DL (6.4-8.2); eCRCL 93 ML/MIN; eGFR > 90 ML/MIN
[2023-08-08 09:37] LABS: ACANTHOCYTES FEW; BURR CELLS 1+
[2023-08-08 09:40] LABS: SCHISTOCYTES FEW
[2023-08-08 09:41] LABS: ANISOCYTOSIS 2+
[2023-08-08 09:43] LABS: ELLIPTOCYTES FEW; TARGET CELLS FEW
[2023-08-08 09:44] LABS: GIANT PLATELET FEW; LARGE PLATELETS FEW
[2023-08-08 09:46] LABS: HYPOCHROMASIA 1+
[2023-08-08 09:47] LABS: MICROCYTOSIS FEW
[2023-08-08 09:48] LABS: PLATELET ESTIMATE INCREASED
[2023-08-08] MEDS: vancomycin/NS 1 GM ADD-VANTAGE 250 ML IV SCH (13:57)
[2023-08-08] MEDS: insulin Lispro (HumaLOG) vial - multi-dose SQ SCH (14:10)
[2023-08-08] MEDS: HYDROmorphone 1 mg/ml syringe IV PRN (15:02)
[2023-08-08] MEDS: cefepime 2g/NS 100ml ADVANTAGE 100 ML IV SCH (16:00)
[2023-08-08 18:00] VITALS: BP 100/50; PULSE 70; RESP 18; TEMP 98; O2SAT 96
[2023-08-09 02:00] VITALS: BP 139/81; PULSE 58; RESP 11; TEMP 98.3; O2SAT 93
[2023-08-09] MEDS: dextrose 50%-water 50ml dispensing syringe IV PRN (03:22)
[2023-08-09 06:00] VITALS: BP 141/79; PULSE 68; RESP 16; TEMP 97.5; O2SAT 92
[2023-08-09 07:14] LABS: BASOPHILS # (AUTO) 0.2 X10'3 (0-0.2); BASOPHILS % (AUTO) 2.5 % (0-1); EOSINOPHILS # (AUTO) 0.1 X10'3 (0-0.9); EOSINOPHILS % (AUTO) 0.7 % (0-6); HEMOGLOBIN 9.8 g/dl (12.0-16.0); LYMPHOCYTES # (AUTO) 1.2 X10'3 (1.1-4.8); LYMPHOCYTES % (AUTO) 11.8 % (21-51); MEAN CORPUSCULAR HEMOGLOBIN 32.3 PG (27.0-31.0); MEAN CORPUSCULAR HGB CONC 33.8 g/dL (33.0-36.5); MEAN CORPUSCULAR VOLUME 95.4 FL (78-98); MEAN PLATELET VOLUME 7.9 FL (7.4-10.4); MONOCYTES # (AUTO) 0.6 X10'3 (0-0.9); NEUTROPHILS # (AUTO) 7.8 X10'3 (1.8-7.7); PLATELET COUNT 720 X10'3 (140-440); RED BLOOD COUNT 3.04 X10'6 (4.20-5.60); RED CELL DISTRIBUTION WIDTH 17.7 % (11.5-14.5); WHITE BLOOD COUNT 9.9 X10'3 (4.5-11.0)
[2023-08-09 07:44] LABS: ALANINE AMINOTRANSFERASE 10 U/L (12-78); ALBUMIN 1.7 G/DL (3.4-5.0); ALBUMIN/GLOBULIN RATIO 0.4 (1.1-1.5); ALKALINE PHOSPHATASE 195 IU/L (46-116); ANION GAP 7 (8-16); ASPARTATE AMINO TRANSFERASE 13 U/L (10-37); BILIRUBIN,TOTAL 0.3 MG/DL (0.1-1.0); BLOOD UREA NITROGEN 6 MG/DL (7-18); BUN/CREATININE RATIO 13.6 (10.0-20.0); CHLORIDE 104 MMOL/L (99-107); CREATININE 0.44 MG/DL (0.40-0.90); GLUCOSE 109 MG/DL (70-104); MAGNESIUM 2.1 MG/DL (1.5-2.4); POTASSIUM 3.2 MMOL/L (3.5-5.1); SODIUM 138 MMOL/L (135-145); TOTAL CARBON DIOXIDE 26.7 MMOL/L (24-32); TOTAL PROTEIN 5.5 G/DL (6.4-8.2); eCRCL 108 ML/MIN; eGFR > 90 ML/MIN
[2023-08-09 08:00] VITALS: RESP 16; O2SAT 92
[2023-08-09] MEDS ORDERED: POTASSIUM BICARB 20meq eff tab 20 MEQ TABLET.EFF PO PRN (08:25)
[2023-08-09] MEDS: potassium Cl 20 mEq SR tablet PO PRN (08:37)
[2023-08-09 15:00] VITALS: BP 124/66; PULSE 68; RESP 12; TEMP 98.1; O2SAT 92
[2023-08-09 18:00] VITALS: BP 150/85; PULSE 67; RESP 19; TEMP 97.4; O2SAT 93
[2023-08-09 22:00] VITALS: BP 131/73; PULSE 63; RESP 18; TEMP 97.4; O2SAT 93
[2023-08-10] VITALS (7 sets, daily range): BP systolic 124–154; BP diastolic 70–87; PULSE 63–84; RESP 14–22; TEMP 97–98.4; O2SAT 93–100
[2023-08-10 07:16] LABS: HEMOGLOBIN 9.6 g/dl (12.0-16.0); WHITE BLOOD COUNT 11.3 X10'3 (4.5-11.0)
[2023-08-10 07:17] LABS: HEMATOCRIT 28.9 % (35.0-45.0); MEAN CORPUSCULAR HEMOGLOBIN 32.1 PG (27.0-31.0); MEAN CORPUSCULAR HGB CONC 33.3 g/dL (33.0-36.5); MEAN CORPUSCULAR VOLUME 96.4 FL (78-98); MEAN PLATELET VOLUME 8.6 FL (7.4-10.4); PLATELET COUNT 725 X10'3 (140-440); RED CELL DISTRIBUTION WIDTH 17.8 % (11.5-14.5)
[2023-08-10 07:32] LABS: ALANINE AMINOTRANSFERASE 10 U/L (12-78); ALBUMIN 1.7 G/DL (3.4-5.0); ALBUMIN/GLOBULIN RATIO 0.4 (1.1-1.5); ALKALINE PHOSPHATASE 187 IU/L (46-116); ANION GAP 7 (8-16); ASPARTATE AMINO TRANSFERASE 15 U/L (10-37); BILIRUBIN,TOTAL 0.3 MG/DL (0.1-1.0); BLOOD UREA NITROGEN 6 MG/DL (7-18); BUN/CREATININE RATIO 14.6 (10.0-20.0); CHLORIDE 104 MMOL/L (99-107); CREATININE 0.41 MG/DL (0.40-0.90); GLUCOSE 195 MG/DL (70-104); PHOSPHORUS 2.9 MG/DL (2.3-4.5); POTASSIUM 4.1 MMOL/L (3.5-5.1); PREALBUMIN 14.2 MG/DL (19-36); SODIUM 137 MMOL/L (135-145); TOTAL CARBON DIOXIDE 26.1 MMOL/L (24-32); TOTAL PROTEIN 5.6 G/DL (6.4-8.2); TRIGLYCERIDES 169 MG/DL (20-135); eCRCL 116 ML/MIN; eGFR > 90 ML/MIN
[2023-08-10 11:08] LABS: TOTAL CELLS COUNTED 100
[2023-08-10 11:10] LABS: HYPOCHROMASIA 1+
[2023-08-10 11:11] LABS: ANISOCYTOSIS 1+; BURR CELLS 1+; SCHISTOCYTES FEW
[2023-08-10 12:01] LABS: PLATELET ESTIMATE INCREASED; POLYCHROMASIA FEW; TARGET CELLS FEW
[2023-08-10 12:02] LABS: LARGE PLATELETS FEW
[2023-08-10] MEDS: lactose-reduced food (Ensure Enlive) - 237ml bottle PO SCH (18:00)
[2023-08-10] MEDS: insulin regular, human U-100 3ml vial - multi-dose SQ SCH (21:56)
[2023-08-11] VITALS (7 sets, daily range): BP systolic 108–160; BP diastolic 58–86; PULSE 63–74; RESP 16–18; TEMP 97.3–99.2; O2SAT 96–99
[2023-08-11] MEDS: VANCOMYCIN LEVEL IV ONE (08:30)
[2023-08-11 11:05] LABS: BASOPHILS # (AUTO) 0.1 X10'3 (0-0.2); HEMOGLOBIN 10.6 g/dl (12.0-16.0); LYMPHOCYTES # (AUTO) 2.2 X10'3 (1.1-4.8); MONOCYTES # (AUTO) 0.6 X10'3 (0-0.9)
[2023-08-11 11:06] LABS: BASOPHILS % (AUTO) 1.1 % (0-1); EOSINOPHILS % (AUTO) 0.2 % (0-6); HEMATOCRIT 32.2 % (35.0-45.0); LYMPHOCYTES % (AUTO) 18.1 % (21-51); MEAN CORPUSCULAR HEMOGLOBIN 31.4 PG (27.0-31.0); MEAN CORPUSCULAR HGB CONC 32.8 g/dL (33.0-36.5); MEAN CORPUSCULAR VOLUME 95.9 FL (78-98); MEAN PLATELET VOLUME 8.6 FL (7.4-10.4); MONOCYTES % (AUTO) 4.6 % (2-12); NEUTROPHILS # (AUTO) 9.2 X10'3 (1.8-7.7); PLATELET COUNT 747 X10'3 (140-440); RED BLOOD COUNT 3.36 X10'6 (4.20-5.60); WHITE BLOOD COUNT 12.2 X10'3 (4.5-11.0)
[2023-08-11] MEDS: HYDROmorphone 1 mg/ml syringe IV PRN (11:14)
[2023-08-11 11:24] LABS: ALANINE AMINOTRANSFERASE 14 U/L (12-78); ALBUMIN 2.1 G/DL (3.4-5.0); ALBUMIN/GLOBULIN RATIO 0.5 (1.1-1.5); ALKALINE PHOSPHATASE 190 IU/L (46-116); ANION GAP 7 (8-16); ASPARTATE AMINO TRANSFERASE 24 U/L (10-37); BILIRUBIN,TOTAL 0.4 MG/DL (0.1-1.0); BLOOD UREA NITROGEN 8 MG/DL (7-18); BUN/CREATININE RATIO 16.7 (10.0-20.0); CALCIUM 8.6 MG/DL (8.5-10.1); CHLORIDE 102 MMOL/L (99-107); CREATININE 0.48 MG/DL (0.40-0.90); GLUCOSE 125 MG/DL (70-104); MAGNESIUM 2.3 MG/DL (1.5-2.4); POTASSIUM 4.4 MMOL/L (3.5-5.1); SODIUM 137 MMOL/L (135-145); TOTAL CARBON DIOXIDE 28.4 MMOL/L (24-32); TOTAL PROTEIN 6.4 G/DL (6.4-8.2); eCRCL 99 ML/MIN; eGFR > 90 ML/MIN
[2023-08-11] MEDS ORDERED: BUPIVAcaine 2.5mg/ml inj 50ml vial (contains preservative) ONE (17:58)
[2023-08-11] MEDS ORDERED: LIDOcaine 1% (10mg/ml)w/preservative inj. 20ml MDV ONE (17:58)
[2023-08-12] VITALS (32 sets, daily range): BP systolic 108–200; BP diastolic 67–112; PULSE 66–97; RESP 7–18; TEMP 97.6–98.4; O2SAT 95–100
[2023-08-12 07:03] LABS: BASOPHILS # (AUTO) 0.1 X10'3 (0-0.2); BASOPHILS % (AUTO) 0.9 % (0-1); EOSINOPHILS % (AUTO) 0.3 % (0-6); HEMOGLOBIN 9.4 g/dl (12.0-16.0); WHITE BLOOD COUNT 13.2 X10'3 (4.5-11.0)
[2023-08-12 07:05] LABS: HEMATOCRIT 28.9 % (35.0-45.0); LYMPHOCYTES # (AUTO) 0.7 X10'3 (1.1-4.8); LYMPHOCYTES % (AUTO) 5.6 % (21-51); MEAN CORPUSCULAR HEMOGLOBIN 31.2 PG (27.0-31.0); MEAN CORPUSCULAR HGB CONC 32.5 g/dL (33.0-36.5); MEAN PLATELET VOLUME 9.1 FL (7.4-10.4); MONOCYTES # (AUTO) 1.9 X10'3 (0-0.9); MONOCYTES % (AUTO) 14.3 % (2-12); NEUTROPHILS # (AUTO) 10.4 X10'3 (1.8-7.7); NEUTROPHILS % (AUTO) 78.9 % (42-75); PLATELET COUNT 659 X10'3 (140-440); RED BLOOD COUNT 3.01 X10'6 (4.20-5.60); RED CELL DISTRIBUTION WIDTH 17.9 % (11.5-14.5)
[2023-08-12 07:31] LABS: ALANINE AMINOTRANSFERASE 15 U/L (12-78); ALBUMIN 1.9 G/DL (3.4-5.0); ALBUMIN/GLOBULIN RATIO 0.5 (1.1-1.5); ALKALINE PHOSPHATASE 158 IU/L (46-116); ANION GAP 7 (8-16); ASPARTATE AMINO TRANSFERASE 19 U/L (10-37); BILIRUBIN,TOTAL 0.3 MG/DL (0.1-1.0); BLOOD UREA NITROGEN 11 MG/DL (7-18); BUN/CREATININE RATIO 27.5 (10.0-20.0); CALCIUM 8.4 MG/DL (8.5-10.1); CHLORIDE 104 MMOL/L (99-107); GLUCOSE 93 MG/DL (70-104); POTASSIUM 4.4 MMOL/L (3.5-5.1); SODIUM 138 MMOL/L (135-145); TOTAL CARBON DIOXIDE 26.9 MMOL/L (24-32); TOTAL PROTEIN 5.9 G/DL (6.4-8.2); eCRCL 119 ML/MIN; eGFR > 90 ML/MIN
[2023-08-12] MEDS: HYDROmorphone 1 mg/ml syringe IV PRN (12:22)
[2023-08-12] MEDS ORDERED: midazolam 1 mg/ML 2ml injection ONE (14:37)
[2023-08-12] MEDS ORDERED: fentaNYL/PF 50MCG/1 ML 2ML syringe ONE (14:37)
[2023-08-12] MEDS ORDERED: LIDOcaine 2% (20mg/ml) 5ml vial ONE (14:38)
[2023-08-12] MEDS ORDERED: propofol inj 20 ML IV ONE (14:38)
[2023-08-12] MEDS ORDERED: rocuronium 10mg/ml inj IV ONE (14:38)
[2023-08-12] MEDS ORDERED: sevoflurane 250ml liquid IH ONE (14:47)
[2023-08-12] MEDS ORDERED: dexamethasone sod phosphate 10mg/ml inj ONE (14:47)
[2023-08-12] MEDS ORDERED: meperidine/PF 25mg/ml syringe IV PRN ×3 (14:50)
[2023-08-12] MEDS ORDERED: ondansetron/PF 4mg/2ml inj IV PRN (14:50)
[2023-08-12] MEDS ORDERED: proCHLORperazine 10 MG/2 ml inj IV PRN (14:50)
[2023-08-12] MEDS ORDERED: morphine 2 MG/ML inj. syringe IV PRN (14:50)
[2023-08-12] MEDS: BUPIVAcaine 2.5mg/ml inj 50ml vial (contains preservative) SQ ONE (15:30)
[2023-08-12] MEDS ORDERED: morphine 4 MG/ML inj SYRINge IV ONE (15:41)
[2023-08-12] MEDS ORDERED: neostigmine methylsulfate 1 MG/ML 10ml vial ONE (15:54)
[2023-08-12] MEDS ORDERED: glycopyrrolate 0.2mg/ml inj ONE (15:54)
[2023-08-12] MEDS ORDERED: ondansetron/PF 4mg/2ml inj ONE (16:09)
[2023-08-12] MEDS: morphine 4 MG/ML inj SYRINge IV PRN (16:10)
[2023-08-12] MEDS ORDERED: naloxone 0.4 mg/ml inj IV PRN (16:25)
[2023-08-12] MEDS: insulin regular, human 10 units/0.1 ml syringe ONE (16:29)
[2023-08-12] MEDS: ringers solution, lacted 1,000 ML IV SCH (16:33)
[2023-08-12] MEDS: enalaprilat dihydrate 2.5mg/2ml vial IV PRN (16:54)
[2023-08-12] MEDS: labetalol 20mg/4ml (5mg/ml) syringe IV PRN (18:07)
[2023-08-12] MEDS: HYDROmorph/NS 0.2 mg/ml PCA 100 ML IV SCH (18:10)
[2023-08-13] VITALS (8 sets, daily range): BP systolic 99–147; BP diastolic 57–86; PULSE 65–76; RESP 8–18; TEMP 97.3–98.2; O2SAT 96–100
[2023-08-13] MEDS: HYDROmorph/NS 0.2 mg/ml PCA 100 ML IV SCH ×2 (01:30→12:51)
[2023-08-13] MEDS: PCA WASTE DOCUMENTATION 1 MG ML MC PRN (15:18)
[2023-08-14] VITALS (7 sets, daily range): BP systolic 98–139; BP diastolic 54–76; PULSE 66–77; RESP 13–20; TEMP 97.1–98.6; O2SAT 93–100
[2023-08-14 08:02] LABS: EOSINOPHILS # (AUTO) 0.2 X10'3 (0-0.9); HEMOGLOBIN 9.7 g/dl (12.0-16.0); RED CELL DISTRIBUTION WIDTH 17.6 % (11.5-14.5)
[2023-08-14 08:04] LABS: BASOPHILS # (AUTO) 0.2 X10'3 (0-0.2); BASOPHILS % (AUTO) 1.3 % (0-1); EOSINOPHILS % (AUTO) 1.4 % (0-6); HEMATOCRIT 30.2 % (35.0-45.0); LYMPHOCYTES # (AUTO) 1.3 X10'3 (1.1-4.8); LYMPHOCYTES % (AUTO) 10.3 % (21-51); MEAN CORPUSCULAR HEMOGLOBIN 30.8 PG (27.0-31.0); MEAN CORPUSCULAR HGB CONC 31.9 g/dL (33.0-36.5); MEAN CORPUSCULAR VOLUME 96.3 FL (78-98); MEAN PLATELET VOLUME 9.3 FL (7.4-10.4); MONOCYTES # (AUTO) 1.1 X10'3 (0-0.9); MONOCYTES % (AUTO) 8.5 % (2-12); NEUTROPHILS # (AUTO) 10.1 X10'3 (1.8-7.7); NEUTROPHILS % (AUTO) 78.5 % (42-75); PLATELET COUNT 474 X10'3 (140-440); RED BLOOD COUNT 3.14 X10'6 (4.20-5.60); WHITE BLOOD COUNT 12.8 X10'3 (4.5-11.0)
[2023-08-14 10:44] LABS: GIANT PLATELET FEW; PLATELET ESTIMATE INCREASED
[2023-08-14 10:45] LABS: ACANTHOCYTES 1+; TARGET CELLS 1+
[2023-08-14 10:46] LABS: ANISOCYTOSIS 1+; LARGE PLATELETS FEW
[2023-08-14 10:47] LABS: BURR CELLS FEW
[2023-08-14 18:13] LABS: ALBUMIN 1.2 G/DL (3.4-5.0); ANION GAP 6 (8-16); BLOOD UREA NITROGEN 9 MG/DL (7-18); BUN/CREATININE RATIO 40.9 (10.0-20.0); CREATININE 0.22 MG/DL (0.40-0.90); GLUCOSE 137 MG/DL (70-104); MAGNESIUM 1.2 MG/DL (1.5-2.4); SODIUM 144 MMOL/L (135-145); TOTAL CARBON DIOXIDE 22.6 MMOL/L (24-32); eCRCL 229 ML/MIN; eGFR > 90 ML/MIN
[2023-08-14 22:29] LABS: ALANINE AMINOTRANSFERASE 19 U/L (12-78); ALBUMIN/GLOBULIN RATIO 0.5 (1.1-1.5); ALKALINE PHOSPHATASE 141 IU/L (46-116); ANION GAP 6 (8-16); ASPARTATE AMINO TRANSFERASE 15 U/L (10-37); BILIRUBIN,TOTAL 0.2 MG/DL (0.1-1.0); BLOOD UREA NITROGEN 13 MG/DL (7-18); BUN/CREATININE RATIO 23.2 (10.0-20.0); CALCIUM 8.5 MG/DL (8.5-10.1); CHLORIDE 98 MMOL/L (99-107); CREATININE 0.56 MG/DL (0.40-0.90); GLUCOSE 336 MG/DL (70-104); MAGNESIUM 1.8 MG/DL (1.5-2.4); PHOSPHORUS 2.9 MG/DL (2.3-4.5); POTASSIUM 4.1 MMOL/L (3.5-5.1); SODIUM 135 MMOL/L (135-145); TOTAL CARBON DIOXIDE 31.5 MMOL/L (24-32); TOTAL PROTEIN 6.3 G/DL (6.4-8.2); eCRCL 90 ML/MIN; eGFR > 90 ML/MIN
[2023-08-15] VITALS (8 sets, daily range): BP systolic 128–168; BP diastolic 63–101; PULSE 76–95; RESP 16–20; TEMP 97.9–99.1; O2SAT 93–98
[2023-08-15 06:08] LABS: EOSINOPHILS # (AUTO) 0.2 X10'3 (0-0.9); MONOCYTES # (AUTO) 1.1 X10'3 (0-0.9); NEUTROPHILS # (AUTO) 6.9 X10'3 (1.8-7.7); NEUTROPHILS % (AUTO) 72.9 % (42-75); WHITE BLOOD COUNT 9.5 X10'3 (4.5-11.0)
[2023-08-15 06:12] LABS: BASOPHILS # (AUTO) 0.1 X10'3 (0-0.2); BASOPHILS % (AUTO) 1.2 % (0-1); EOSINOPHILS % (AUTO) 1.9 % (0-6); HEMATOCRIT 25.4 % (35.0-45.0); HEMOGLOBIN 8.6 g/dl (12.0-16.0); LYMPHOCYTES # (AUTO) 1.1 X10'3 (1.1-4.8); MEAN CORPUSCULAR HEMOGLOBIN 32.6 PG (27.0-31.0); MEAN CORPUSCULAR VOLUME 95.8 FL (78-98); MEAN PLATELET VOLUME 8.5 FL (7.4-10.4); PLATELET COUNT 532 X10'3 (140-440); RED BLOOD COUNT 2.65 X10'6 (4.20-5.60); RED CELL DISTRIBUTION WIDTH 17.2 % (11.5-14.5)
[2023-08-15 06:21] LABS: ALBUMIN 1.9 G/DL (3.4-5.0); ANION GAP 3 (8-16); BLOOD UREA NITROGEN 11 MG/DL (7-18); BUN/CREATININE RATIO 24.4 (10.0-20.0); CALCIUM 8.7 MG/DL (8.5-10.1); CHLORIDE 102 MMOL/L (99-107); CREATININE 0.45 MG/DL (0.40-0.90); GLUCOSE 128 MG/DL (70-104); POTASSIUM 4.5 MMOL/L (3.5-5.1); SODIUM 136 MMOL/L (135-145); TOTAL CARBON DIOXIDE 31.2 MMOL/L (24-32); eCRCL 112 ML/MIN; eGFR > 90 ML/MIN
[2023-08-15 07:35] LABS: PLATELET ESTIMATE INCREASED
[2023-08-15 07:37] LABS: LARGE PLATELETS FEW
[2023-08-15] MEDS: HYDROmorphone 1 mg/ml syringe IV PRN (11:30)
[2023-08-16 02:00] VITALS: BP 156/90; PULSE 86; RESP 18; TEMP 97.8; O2SAT 95
[2023-08-16] MEDS: ondansetron/PF 4mg/2ml inj IV ONE (02:01)
[2023-08-16] MEDS: diphenhydrAMINE 50 mg/ml inj IV ONE (02:01)
[2023-08-16 07:00] VITALS: RESP 18; O2SAT 93
[2023-08-16 07:10] VITALS: BP 146/91; PULSE 88; RESP 18; TEMP 98.9; O2SAT 93
[2023-08-16 07:34] LABS: ALBUMIN 2.2 G/DL (3.4-5.0); ANION GAP 5 (8-16); BLOOD UREA NITROGEN 12 MG/DL (7-18); BUN/CREATININE RATIO 21.1 (10.0-20.0); CALCIUM 8.9 MG/DL (8.5-10.1); CHLORIDE 99 MMOL/L (99-107); CREATININE 0.57 MG/DL (0.40-0.90); GLUCOSE 228 MG/DL (70-104); POTASSIUM 4.3 MMOL/L (3.5-5.1); SODIUM 135 MMOL/L (135-145); TOTAL CARBON DIOXIDE 30.6 MMOL/L (24-32); eCRCL 90 ML/MIN; eGFR > 90 ML/MIN
[2023-08-16 09:29] LABS: HEMOGLOBIN 9.6 g/dl (12.0-16.0); MEAN CORPUSCULAR HGB CONC 32.4 g/dL (33.0-36.5)
[2023-08-16 09:31] LABS: BASOPHILS # (AUTO) 0.1 X10'3 (0-0.2); BASOPHILS % (AUTO) 1.3 % (0-1); EOSINOPHILS # (AUTO) 0.1 X10'3 (0-0.9); EOSINOPHILS % (AUTO) 1.2 % (0-6); HEMATOCRIT 29.6 % (35.0-45.0); LYMPHOCYTES # (AUTO) 1.1 X10'3 (1.1-4.8); LYMPHOCYTES % (AUTO) 12.1 % (21-51); MEAN CORPUSCULAR HEMOGLOBIN 30.5 PG (27.0-31.0); MEAN CORPUSCULAR VOLUME 94.1 FL (78-98); MEAN PLATELET VOLUME 8.8 FL (7.4-10.4); MONOCYTES # (AUTO) 0.9 X10'3 (0-0.9); MONOCYTES % (AUTO) 9.8 % (2-12); NEUTROPHILS # (AUTO) 6.8 X10'3 (1.8-7.7); NEUTROPHILS % (AUTO) 75.6 % (42-75); PLATELET COUNT 620 X10'3 (140-440); RED BLOOD COUNT 3.15 X10'6 (4.20-5.60); RED CELL DISTRIBUTION WIDTH 17.7 % (11.5-14.5); WHITE BLOOD COUNT 9.1 X10'3 (4.5-11.0)
[2023-08-16 09:57] LABS: ANISOCYTOSIS 1+; PLATELET ESTIMATE INCREASED
[2023-08-16 09:58] LABS: ACANTHOCYTES FEW; BURR CELLS FEW; HYPOCHROMASIA 1+; TARGET CELLS FEW
[2023-08-16] MEDS: HYDROmorphone 1 mg/ml syringe IV ONE (11:04)
== END 2023-08-16 11:20 | disposition home health service (06) | DRG 721 ==
LOC: SSTAY O 10:20 → UNDOADMIN 14:05 → PACU 14:05 → PCU 3S 14:05 → UNDOLOA 19:55 → PACU 19:55 → PCU 3S 19:55 → PACU 08-12 16:04 → PCU 3S 08-12 20:00 → PACU 08-12 20:00
PROVIDERS: ADMIT Internal Medicine; ATTEND Internal Medicine
PROC: 0DHA0UZ Insertion of Feeding Device into Jejunum, Open Approach (ICD-10-PCS; principal; 2023-08-12 14:47)
PROC: 05H933Z Insertion of Infusion Device into Right Brachial Vein, Percutaneous Approach (ICD-10-PCS; 2023-08-14)
DX: T80.218A Other infection due to central venous catheter, initial encounter (principal); E43 Unspecified severe protein-calorie malnutrition; K86.89 Other specified diseases of pancreas; R62.7 Adult failure to thrive; D63.8 Anemia in other chronic diseases classified elsewhere; D75.839 Thrombocytosis, unspecified; E11.9 Type 2 diabetes mellitus without complications; E87.6 Hypokalemia; G40.909 Epilepsy, unspecified, not intractable, without status epilepticus; G89.29 Other chronic pain; M62.50 Muscle wasting and atrophy, not elsewhere classified, unspecified site; K86.1 Other chronic pancreatitis; Y83.8 Other surgical procedures as the cause of abnormal reaction of the patient, or of later complication, without mention of misadventure at the time of the procedure; Z79.01 Long term (current) use of anticoagulants; Z79.899 Other long term (current) drug therapy; Y92.89 Other specified places as the place of occurrence of the external cause; Z90.81 Acquired absence of spleen; Z68.1 Body mass index [BMI] 19.9 or less, adult; Z88.1 Allergy status to other antibiotic agents; Z90.710 Acquired absence of both cervix and uterus; Z87.11 Personal history of peptic ulcer disease
CPT/HCPCS: 36410; 36415; 71045; 76937; 80048; 80053; 80202; 82607; 82948; 83605; 83735; 84100; 84134; 84145; 84478; 84484; 85007; 85008; 85025; 85610; 85730; 87040; 87070; 87075; 87077; 87081; 87102; 87186; 92508; 92616; 93005; 93306; 93970; 97161; A4215; A4615; A4618; A6258; A6402; A6449; A7000; B4087; C1751; G0378; J0692; J1100; J1170; J1200; J1644; J1815; J2250; J2270; J2405; J2704; J2710; J3010; J3370; J3480; J3490; J7030; J7040; J7050; J7060; J7120

== ENCOUNTER 2023-08-25 14:27 | Inpatient (IN) | payer MEDICAID ==
[~2023-08-25] VITALS: Ht 167.6 cm; Wt 47.1 kg
[~2023-08-25 14:27] MED LIST changes: +DICY20TA12 PO; -HYDR25TA5 PO; +MV-M1TAB57 PO; +PRAZ1CAP5 PO
[2023-08-25 15:11] LABS: BASOPHILS # (AUTO) 0.1 X10'3 (0-0.2); BASOPHILS % (AUTO) 0.3 % (0-1); EOSINOPHILS % (AUTO) 0 % (0-6); HEMATOCRIT 22.6 % (35.0-45.0); HEMOGLOBIN 7.5 g/dl (12.0-16.0); LYMPHOCYTES # (AUTO) 1.6 X10'3 (1.1-4.8); LYMPHOCYTES % (AUTO) 6.5 % (21-51); MEAN CORPUSCULAR HEMOGLOBIN 30.7 PG (27.0-31.0); MEAN CORPUSCULAR HGB CONC 33.2 g/dL (33.0-36.5); MEAN CORPUSCULAR VOLUME 92.4 FL (78-98); MONOCYTES # (AUTO) 1.2 X10'3 (0-0.9); MONOCYTES % (AUTO) 4.6 % (2-12); NEUTROPHILS # (AUTO) 22.5 X10'3 (1.8-7.7); NEUTROPHILS % (AUTO) 88.6 % (42-75); PLATELET COUNT 442 X10'3 (140-440); RED BLOOD COUNT 2.44 X10'6 (4.20-5.60); RED CELL DISTRIBUTION WIDTH 17.8 % (11.5-14.5)
[2023-08-25 15:17] LABS: WHITE BLOOD COUNT 25.4 X10'3 (4.5-11.0)
[2023-08-25 15:26] LABS: ALANINE AMINOTRANSFERASE 45 U/L (12-78); ALBUMIN 2.4 G/DL (3.4-5.0); ALBUMIN/GLOBULIN RATIO 0.6 (1.1-1.5); ALKALINE PHOSPHATASE 202 IU/L (46-116); ANION GAP 7 (8-16); ASPARTATE AMINO TRANSFERASE 22 U/L (10-37); BILIRUBIN,TOTAL 0.2 MG/DL (0.1-1.0); BLOOD UREA NITROGEN 25 MG/DL (7-18); BUN/CREATININE RATIO 33.3 (10.0-20.0); CALCIUM 7.5 MG/DL (8.5-10.1); CHLORIDE 87 MMOL/L (99-107); CREATININE 0.75 MG/DL (0.40-0.90); GLUCOSE 314 MG/DL (70-104); LIPASE 7 U/L (16-77); POTASSIUM 3.2 MMOL/L (3.5-5.1); SODIUM 128 MMOL/L (135-145); TOTAL CARBON DIOXIDE 34.3 MMOL/L (24-32); TOTAL PROTEIN 6.5 G/DL (6.4-8.2); eCRCL 58 ML/MIN; eGFR 84 ML/MIN
[2023-08-25 15:41] LABS: TOTAL CELLS COUNTED 100
[2023-08-25 15:42] LABS: ANISOCYTOSIS 1+; PLATELET ESTIMATE INCREASED; POLYCHROMASIA 2+
[2023-08-25 15:43] LABS: HYPOCHROMASIA 1+; ROULEAUX 1+
[2023-08-25 15:48] LABS: BURR CELLS FEW; TARGET CELLS 1+
[2023-08-25] MEDS: ondansetron/PF 4mg/2ml inj IV ONE (16:12)
[2023-08-25] MEDS: HYDROmorphone 1 mg/ml syringe IV ONE (16:13)
[2023-08-25] MEDS: CefTRIAXone 2gm/D5W 50ml BAG 50 ML IV ONE (16:13)
[2023-08-25] MEDS: normal saline 1000ML IV soln IV ONE (16:19)
[2023-08-25] MEDS: HYDROmorphone 1 mg/ml syringe IV STA (17:23)
[2023-08-25] MEDS: POTASSIUM BICARB 20meq eff tab 20 MEQ TABLET.EFF PO STA (17:49)
[2023-08-25 18:10] LABS: URINE HCG NEGATIVE (NEG)
[2023-08-25 18:17] LABS: BILIRUBIN,URINE NEGATIVE (Neg); CLARITY,URINE CLEAR (Clear); COLOR,URINE YELLOW (Yellow); GLUCOSE, URINE >=1000 mg/dl (Neg); KETONES,URINE NEGATIVE (Neg); LEUKOCYTE ESTERASE ,URINE NEGATIVE (Neg); NITRITES, URINE NEGATIVE (Neg); OCCULT BLOOD,URINE NEGATIVE (Neg); PH,URINE 7.5 (4.8-8.0); PROTEIN,URINE TRACE mg/dl (Neg); UROBILINOGEN,URINE 0.2 E.U/dL (0.2-1.0)
[2023-08-25 18:23] LABS: URINE AMPHETAMINE SCREEN NEGATIVE (Neg); URINE BARBITUATE SCREEN NEGATIVE (Neg); URINE BENZODIAZEPINES SCREEN NEGATIVE (Neg); URINE CANNABINOID SCREEN POSITIVE (Neg); URINE COCAINE SCREEN NEGATIVE (Neg); URINE METHADONE SCREEN NEGATIVE (Neg); URINE OPIATE SCREEN POSITIVE (Neg); URINE PHENCYCLIDINE SCREEN NEGATIVE (Neg)
[2023-08-25 19:06] LABS: UA COLLECTION TYPE CLN CATCH MIDSTREAM
[2023-08-25 19:08] LABS: RBC,URINE NONE SEEN /HPF (0-2); WBC,URINE 0-4 /HPF (0-4)
[2023-08-25 19:09] LABS: BACTERIA,URINE NONE SEEN /HPF (Neg); SQUAMOUS EPITHELIAL CELL,UR FEW /LPF (FEW)
[2023-08-25 19:10] LABS: MUCUS STRANDS NONE SEEN /LPF (Neg)
[2023-08-25] MEDS ORDERED: mag hydrox/Alum hydrox/simeth 30ml oral suspension PO PRN (21:05)
[2023-08-25] MEDS ORDERED: magnesium Cl slow-release 64mg tablet PO PRN (21:05)
[2023-08-25] MEDS ORDERED: HYDROcodone/acetaminophen 10/325mg tab PO PRN (21:05)
[2023-08-25] MEDS ORDERED: magnesium hydroxide 30ml (MOM) UD suspension PO PRN (21:05)
[2023-08-25] MEDS ORDERED: magnesium 4gm in 100ml NS 100 ML IV PRN (21:05)
[2023-08-25] MEDS ORDERED: HYDROcodone/acetaminophen 5mg/325mg tablet PO PRN (21:05)
[2023-08-25] MEDS ORDERED: magnesium 2GM in 50ml NS 50 ML IV PRN (21:05)
[2023-08-25] MEDS ORDERED: acetaminophen 325mg tablet PO PRN ×2 (21:05)
[2023-08-25] MEDS ORDERED: ondansetron/PF 4mg/2ml inj IV PRN (21:05)
[2023-08-25] MEDS ORDERED: potassium Cl 20 mEq SR tablet PO PRN (21:05)
[2023-08-25] MEDS: normal saline 1000ml 1,000 ML IV SCH (21:10)
[2023-08-25 21:59] LABS: ABG BASE EXCESS 6.5 mmol/L (-2.0-2.0); ABG HCO3 30.4 mmol/L (22.0-26.0); ABG OXYGEN SATURATION 93.9 % (94-97); ABG PH (T) 7.488 (7.350-7.450); ABG PO2 (T) 75.1 mmHg (75.0-100.0); FCOHb 0.7 % (0.0-3.9); FMetHb 0.3 % (0.0-1.5); MODE ROOM AIR; TOTAL HEMOGLOBIN 7.1 G/dl (12.0-16.0)
[2023-08-25] MEDS ORDERED: dextrose 50%-water 50ml dispensing syringe IV PRN ×2 (22:00)
[2023-08-25] MEDS ORDERED: DEXTROSE 15 GM of carb/4 tabs (each vial/BOTTLE has 4 tablets) PO PRN ×2 (22:00)
[2023-08-25] MEDS ORDERED: glucagon, human recombinant 1mg kit SUBCUT PRN (22:00)
[2023-08-25] MEDS: MESSAGE TO PHARMACY PO ONE (22:11)
[2023-08-25] MEDS: morphine 2 MG/ML inj. syringe IV PRN (22:27)
[2023-08-25] MEDS: pantoprazole 40 MG vial IV SCH (22:27)
[2023-08-25 22:49] LABS: D-DIMER 1.01 MG/L FEU (0-0.50)
[2023-08-25 22:50] LABS: CREATINE KINASE 23 U/L (26-192); PHOSPHORUS 2.2 MG/DL (2.3-4.5)
[2023-08-25] MEDS: insulin Lispro (HumaLOG) vial - multi-dose SQ SCH (22:55)
[2023-08-25 23:21] LABS: HEMOGLOBIN A1C 10.4 % (4.5-6.2)
[2023-08-25] MEDS: vancomycin/NS 1 GM ADD-VANTAGE 250 ML IV SCH (23:37)
[2023-08-26] VITALS (17 sets, daily range): BP systolic 99–123; BP diastolic 60–85; PULSE 67–96; RESP 7–17; TEMP 96.7–99.3; O2SAT 93–100
[2023-08-26 00:25] LABS: MEAN CORPUSCULAR HEMOGLOBIN 30.9 PG (27.0-31.0); MEAN CORPUSCULAR HGB CONC 33.3 g/dL (33.0-36.5); MEAN CORPUSCULAR VOLUME 92.7 FL (78-98); PLATELET COUNT 357 X10'3 (140-440); RED BLOOD COUNT 1.97 X10'6 (4.20-5.60); RED CELL DISTRIBUTION WIDTH 17.5 % (11.5-14.5)
[2023-08-26 00:32] LABS: HEMATOCRIT 18.3 % (35.0-45.0); HEMOGLOBIN 6.1 g/dl (12.0-16.0)
[2023-08-26] MEDS: piperacillin/tazo 3.375gm/50ml 50 ML IV SCH (01:12)
[2023-08-26] MEDS: pantoprazole 40MG/NS 100ML BAG 100 ML IV SCH (01:24)
[2023-08-26] MEDS: pantoprazole 40 MG vial IV ONE (01:24)
[2023-08-26] MEDS: HYDROmorphone/PF 0.2 MG/ML SYRINGE IV PRN ×2 (01:49→15:59)
[2023-08-26 03:28] LABS: BASOPHILS # (AUTO) 0.1 X10'3 (0-0.2); BASOPHILS % (AUTO) 0.5 % (0-1); EOSINOPHILS % (AUTO) 0.2 % (0-6); LYMPHOCYTES % (AUTO) 11.7 % (21-51); MEAN CORPUSCULAR HEMOGLOBIN 31.2 PG (27.0-31.0); MEAN CORPUSCULAR HGB CONC 33.5 g/dL (33.0-36.5); MEAN CORPUSCULAR VOLUME 93.1 FL (78-98); MEAN PLATELET VOLUME 8.1 FL (7.4-10.4); MONOCYTES # (AUTO) 0.9 X10'3 (0-0.9); MONOCYTES % (AUTO) 5.5 % (2-12); NEUTROPHILS # (AUTO) 14.2 X10'3 (1.8-7.7); NEUTROPHILS % (AUTO) 82.1 % (42-75); PLATELET COUNT 412 X10'3 (140-440); RED BLOOD COUNT 2.06 X10'6 (4.20-5.60); RED CELL DISTRIBUTION WIDTH 17.3 % (11.5-14.5); WHITE BLOOD COUNT 17.3 X10'3 (4.5-11.0)
[2023-08-26 03:34] LABS: HEMOGLOBIN 6.4 g/dl (12.0-16.0)
[2023-08-26 03:35] LABS: HEMATOCRIT 19.2 % (35.0-45.0)
[2023-08-26 03:46] LABS: APTT 24 SECONDS (22-32); INR 1.1 INR; PROTHROMBIN TIME 11.9 SECONDS (9.0-12.0)
[2023-08-26 03:51] LABS: ALANINE AMINOTRANSFERASE 35 U/L (12-78); ALBUMIN 2.4 G/DL (3.4-5.0); ALBUMIN/GLOBULIN RATIO 0.6 (1.1-1.5); ALKALINE PHOSPHATASE 168 IU/L (46-116); ANION GAP 5 (8-16); ASPARTATE AMINO TRANSFERASE 18 U/L (10-37); BILIRUBIN,TOTAL 0.2 MG/DL (0.1-1.0); BLOOD UREA NITROGEN 17 MG/DL (7-18); BUN/CREATININE RATIO 30.4 (10.0-20.0); CALCIUM 8.3 MG/DL (8.5-10.1); CHLORIDE 97 MMOL/L (99-107); CREATININE 0.56 MG/DL (0.40-0.90); GLUCOSE 79 MG/DL (70-104); MAGNESIUM 1.9 MG/DL (1.5-2.4); PHOSPHORUS 1.9 MG/DL (2.3-4.5); POTASSIUM 3.4 MMOL/L (3.5-5.1); SODIUM 135 MMOL/L (135-145); TOTAL CARBON DIOXIDE 33.1 MMOL/L (24-32); TOTAL PROTEIN 6.4 G/DL (6.4-8.2); eCRCL 77 ML/MIN; eGFR > 90 ML/MIN
[2023-08-26] MEDS: morphine 2 MG/ML inj. syringe IV PRN (04:49)
[2023-08-26] MEDS: docusate sod 100mg capsule PO SCH (08:00)
[2023-08-26] MEDS: K and/or MAG REPLACEMENT MC SCH (08:04)
[2023-08-26] MEDS: HYDROmorphone 1 mg/ml syringe IV PRN (11:01)
[2023-08-26 12:35] LABS: HEMOGLOBIN 8.2 g/dl (12.0-16.0); MEAN CORPUSCULAR HEMOGLOBIN 30.6 PG (27.0-31.0); MEAN CORPUSCULAR HGB CONC 34.2 g/dL (33.0-36.5); MEAN CORPUSCULAR VOLUME 89.4 FL (78-98); PLATELET COUNT 316 X10'3 (140-440); RED BLOOD COUNT 2.69 X10'6 (4.20-5.60); RED CELL DISTRIBUTION WIDTH 16.4 % (11.5-14.5); WHITE BLOOD COUNT 11.6 X10'3 (4.5-11.0)
[2023-08-26] MEDS ORDERED: MIDAZolam 1 MG/ML 5ML VIAL ONE (13:38)
[2023-08-26] MEDS ORDERED: fentaNYL/PF 50MCG/1 ML 2ML syringe ONE (13:38)
[2023-08-26] MEDS: sodium phosphate inj. 30 MMOL in dextrose 5%-water 250 ML IV ONE (14:56)
[2023-08-26] MEDS: potassium Cl 40MEQ/1/2NS 520ml 520 ML IV PRN (15:20)
[2023-08-26] MEDS: sucralfate 1 gm tablet PO SCH (15:59)
[2023-08-26 17:38] LABS: HEMATOCRIT 28.6 % (35.0-45.0); HEMOGLOBIN 9.6 g/dl (12.0-16.0); MEAN CORPUSCULAR HGB CONC 33.6 g/dL (33.0-36.5); MEAN CORPUSCULAR VOLUME 89.2 FL (78-98); MEAN PLATELET VOLUME 8.4 FL (7.4-10.4); PLATELET COUNT 321 X10'3 (140-440); RED CELL DISTRIBUTION WIDTH 16.5 % (11.5-14.5); WHITE BLOOD COUNT 10.9 X10'3 (4.5-11.0)
[2023-08-26] MEDS: insulin glargine (Lantus) pen - multi-dose SQ SCH (21:00)
[2023-08-27] VITALS (8 sets, daily range): BP systolic 126–157; BP diastolic 64–96; PULSE 62–88; RESP 8–21; TEMP 97.4–99.1; O2SAT 92–97
[2023-08-27 06:54] LABS: APTT 24 SECONDS (22-32); INR 1.3 INR; PROTHROMBIN TIME 13.4 SECONDS (9.0-12.0)
[2023-08-27 07:30] LABS: BASOPHILS # (AUTO) 0.3 X10'3 (0-0.2); BASOPHILS % (AUTO) 3.6 % (0-1); EOSINOPHILS # (AUTO) 0.1 X10'3 (0-0.9); EOSINOPHILS % (AUTO) 1.1 % (0-6); HEMATOCRIT 25.3 % (35.0-45.0); HEMOGLOBIN 8.6 g/dl (12.0-16.0); LYMPHOCYTES # (AUTO) 1.7 X10'3 (1.1-4.8); LYMPHOCYTES % (AUTO) 20.7 % (21-51); MEAN CORPUSCULAR HEMOGLOBIN 30.3 PG (27.0-31.0); MEAN CORPUSCULAR HGB CONC 33.9 g/dL (33.0-36.5); MEAN CORPUSCULAR VOLUME 89.5 FL (78-98); MEAN PLATELET VOLUME 7.8 FL (7.4-10.4); MONOCYTES # (AUTO) 0.5 X10'3 (0-0.9); MONOCYTES % (AUTO) 6.2 % (2-12); NEUTROPHILS # (AUTO) 5.6 X10'3 (1.8-7.7); NEUTROPHILS % (AUTO) 68.4 % (42-75); PLATELET COUNT 356 X10'3 (140-440); RED BLOOD COUNT 2.83 X10'6 (4.20-5.60); RED CELL DISTRIBUTION WIDTH 16.4 % (11.5-14.5); WHITE BLOOD COUNT 8.3 X10'3 (4.5-11.0)
[2023-08-27 07:34] LABS: ALANINE AMINOTRANSFERASE 48 U/L (12-78); ALBUMIN 1.9 G/DL (3.4-5.0); ALBUMIN/GLOBULIN RATIO 0.5 (1.1-1.5); ALKALINE PHOSPHATASE 164 IU/L (46-116); ANION GAP 13 (8-16); ASPARTATE AMINO TRANSFERASE 68 U/L (10-37); BILIRUBIN,TOTAL 0.3 MG/DL (0.1-1.0); BLOOD UREA NITROGEN 6 MG/DL (7-18); CALCIUM 7.9 MG/DL (8.5-10.1); CHLORIDE 102 MMOL/L (99-107); GLUCOSE 156 MG/DL (70-104); MAGNESIUM 1.7 MG/DL (1.5-2.4); POTASSIUM 3.8 MMOL/L (3.5-5.1); SODIUM 135 MMOL/L (135-145); TOTAL CARBON DIOXIDE 19.6 MMOL/L (24-32); TOTAL PROTEIN 5.5 G/DL (6.4-8.2); eCRCL 87 ML/MIN; eGFR > 90 ML/MIN
[2023-08-27] MEDS: VANCOMYCIN LEVEL IV ONE (10:32)
[2023-08-27] MEDS ORDERED: HYDROmorphone/PF 0.2 MG/ML SYRINGE IV PRN (11:00)
[2023-08-27 11:17] LABS: HEMATOCRIT 25.8 % (35.0-45.0); HEMOGLOBIN 8.7 g/dl (12.0-16.0); MEAN CORPUSCULAR HEMOGLOBIN 30.3 PG (27.0-31.0); MEAN CORPUSCULAR HGB CONC 33.8 g/dL (33.0-36.5); MEAN CORPUSCULAR VOLUME 89.7 FL (78-98); MEAN PLATELET VOLUME 8.4 FL (7.4-10.4); PLATELET COUNT 365 X10'3 (140-440); RED BLOOD COUNT 2.87 X10'6 (4.20-5.60); RED CELL DISTRIBUTION WIDTH 16.3 % (11.5-14.5); WHITE BLOOD COUNT 9.6 X10'3 (4.5-11.0)
[2023-08-27] MEDS ORDERED: acetaminophen 325mg tablet JT PRN ×2 (11:55)
[2023-08-27] MEDS ORDERED: docusate sodium 100mg/10ml UD cup PO SCH (11:56)
[2023-08-27] MEDS ORDERED: mag hydrox/Alum hydrox/simeth 30ml oral suspension JT PRN (11:57)
[2023-08-27] MEDS ORDERED: magnesium hydroxide 30ml (MOM) UD suspension JT PRN (11:57)
[2023-08-27] MEDS ORDERED: DEXTROSE 15 GM of carb/4 tabs (each vial/BOTTLE has 4 tablets) JT PRN ×2 (11:58)
[2023-08-27] MEDS: HYDROmorphone 1 mg/ml syringe IV PRN (14:57)
[2023-08-27] MEDS: sucralfate 1 gm tablet JT SCH (16:54)
[2023-08-27 17:37] LABS: HEMATOCRIT 26.1 % (35.0-45.0); HEMOGLOBIN 8.8 g/dl (12.0-16.0); MEAN CORPUSCULAR HEMOGLOBIN 30.6 PG (27.0-31.0); MEAN CORPUSCULAR HGB CONC 33.8 g/dL (33.0-36.5); MEAN CORPUSCULAR VOLUME 90.6 FL (78-98); MEAN PLATELET VOLUME 8.1 FL (7.4-10.4); PLATELET COUNT 380 X10'3 (140-440); RED BLOOD COUNT 2.88 X10'6 (4.20-5.60); RED CELL DISTRIBUTION WIDTH 16.7 % (11.5-14.5); WHITE BLOOD COUNT 10.8 X10'3 (4.5-11.0)
[2023-08-27] MEDS: docusate sodium 100mg/10ml UD cup JT SCH (20:49)
[2023-08-28 02:00] VITALS: BP 141/85; PULSE 68; RESP 12; TEMP 97.2; O2SAT 96
[2023-08-28 07:29] VITALS: BP 119/74; PULSE 68; RESP 18; TEMP 97.5; O2SAT 97
[2023-08-28 08:00] VITALS: RESP 18; O2SAT 97
[2023-08-28 08:51] LABS: BASOPHILS # (AUTO) 0.1 X10'3 (0-0.2); BASOPHILS % (AUTO) 0.8 % (0-1); EOSINOPHILS # (AUTO) 0.2 X10'3 (0-0.9); EOSINOPHILS % (AUTO) 1.3 % (0-6); HEMATOCRIT 25.8 % (35.0-45.0); HEMOGLOBIN 8.5 g/dl (12.0-16.0); LYMPHOCYTES # (AUTO) 1.3 X10'3 (1.1-4.8); LYMPHOCYTES % (AUTO) 10.6 % (21-51); MEAN CORPUSCULAR HEMOGLOBIN 30.1 PG (27.0-31.0); MEAN CORPUSCULAR HGB CONC 33.2 g/dL (33.0-36.5); MEAN CORPUSCULAR VOLUME 90.8 FL (78-98); MEAN PLATELET VOLUME 8.5 FL (7.4-10.4); MONOCYTES # (AUTO) 0.6 X10'3 (0-0.9); MONOCYTES % (AUTO) 5.2 % (2-12); NEUTROPHILS # (AUTO) 10.1 X10'3 (1.8-7.7); NEUTROPHILS % (AUTO) 82.1 % (42-75); PLATELET COUNT 442 X10'3 (140-440); RED BLOOD COUNT 2.84 X10'6 (4.20-5.60); RED CELL DISTRIBUTION WIDTH 16.3 % (11.5-14.5); WHITE BLOOD COUNT 12.3 X10'3 (4.5-11.0)
[2023-08-28 08:59] LABS: APTT 28 SECONDS (22-32); INR 1.2 INR; PROTHROMBIN TIME 12.3 SECONDS (9.0-12.0)
[2023-08-28 10:03] LABS: ALANINE AMINOTRANSFERASE 69 U/L (12-78); ALBUMIN/GLOBULIN RATIO 0.6 (1.1-1.5); ALKALINE PHOSPHATASE 186 IU/L (46-116); ANION GAP 12 (8-16); ASPARTATE AMINO TRANSFERASE 62 U/L (10-37); BILIRUBIN,TOTAL 0.2 MG/DL (0.1-1.0); BLOOD UREA NITROGEN 4 MG/DL (7-18); BUN/CREATININE RATIO 8.2 (10.0-20.0); CALCIUM 7.7 MG/DL (8.5-10.1); CHLORIDE 102 MMOL/L (99-107); CREATININE 0.49 MG/DL (0.40-0.90); GLUCOSE 236 MG/DL (70-104); MAGNESIUM 1.7 MG/DL (1.5-2.4); PHOSPHORUS 2.6 MG/DL (2.3-4.5); POTASSIUM 3.3 MMOL/L (3.5-5.1); PREALBUMIN 15.8 MG/DL (19-36); SODIUM 135 MMOL/L (135-145); TOTAL CARBON DIOXIDE 21.3 MMOL/L (24-32); TOTAL PROTEIN 5.6 G/DL (6.4-8.2); eCRCL 108 ML/MIN; eGFR > 90 ML/MIN
[2023-08-28] MEDS: potassium Cl 20 mEq SR tablet PO PRN (10:34)
[2023-08-28] MEDS ORDERED: POTA-207 PO (11:29)
[2023-08-28] MEDS ORDERED: SUCR1TAB34 JT (11:29)
[2023-08-28] MEDS ORDERED: PANT-47 PO (11:29)
[2023-08-28 11:57] VITALS: RESP 14
[2023-08-28] MEDS: HYDROmorphone 1 mg/ml syringe IV ONE (11:57)
== END 2023-08-28 13:18 | disposition home or self-care (01) | DRG 241 ==
LOC: ER 14:28 → ED HOLD 21:08 → EDBEDREQTM 08-26 03:06 → PCU 3S 08-26 03:40
PROVIDERS: ADMIT Family Medicine; ATTEND Family Medicine
PROC: 0DJ08ZZ Inspection of Upper Intestinal Tract, Via Natural or Artificial Opening Endoscopic (ICD-10-PCS; principal; 2023-08-26)
PROC: 30233N1 Transfusion of Nonautologous Red Blood Cells into Peripheral Vein, Percutaneous Approach (ICD-10-PCS; 2023-08-26)
DX: K26.4 Chronic or unspecified duodenal ulcer with hemorrhage (principal); E11.9 Type 2 diabetes mellitus without complications; J45.909 Unspecified asthma, uncomplicated; K21.00 Gastro-esophageal reflux disease with esophagitis, without bleeding; K44.9 Diaphragmatic hernia without obstruction or gangrene; F32.A Depression, unspecified; G43.909 Migraine, unspecified, not intractable, without status migrainosus; G89.29 Other chronic pain; M54.9 Dorsalgia, unspecified; Z90.81 Acquired absence of spleen; Z90.710 Acquired absence of both cervix and uterus; Z90.411 Acquired partial absence of pancreas; Z79.4 Long term (current) use of insulin; Z88.1 Allergy status to other antibiotic agents
CPT/HCPCS: 36415; 36430; 36600; 43235; 71045; 74176; 80053; 80202; 80305; 81001; 81025; 82550; 82803; 82948; 83036; 83605; 83690; 83735; 84100; 84134; 84145; 85007; 85018; 85025; 85027; 85379; 85610; 85730; 86885; 86900; 86901; 86920; 87040; 87081; 93005; 97161; 97530; 99152; 99285; A4620; A6402; C9113; G0378; J0696; J1170; J1815; J2250; J2270; J2405; J2543; J3010; J3370; J3480; J3490; J7030; J7040; J7060; P9016

== ENCOUNTER 2023-12-21 07:29 | Inpatient (IN) | payer MEDICAID ==
[~2023-12-21] VITALS: Ht 167.6 cm; Wt 40.2 kg
[~2023-12-21 07:29] MED LIST changes: +POTA-207 PO; +SUCR1TAB34 JT
[2023-12-21] MEDS ORDERED: sodium chloride inj. 154 MEQ in Dextrose 10%-water IV solution 961.5 ML IV SCH ×2 (08:00→09:10)
[2023-12-21] MEDS: ketorolac tromethamine 15mg/ml inj. IM ONE ×2 (08:15→08:20)
[2023-12-21] MEDS: normal saline 1000ml 1,000 ML IV SCH (08:34)
[2023-12-21] MEDS: dextrose 10% 250ml bag IV ONE ×2 (08:34→09:15)
[2023-12-21] MEDS: dextrose 50%-water 50ml dispensing syringe IV ONE (09:11)
[2023-12-21] MEDS ORDERED: Dextrose 10%-water IV solution 1,000 ML IV SCH (09:20)
[2023-12-21 09:23] LABS: BILIRUBIN,URINE NEGATIVE (Neg); CLARITY,URINE CLEAR (Clear); COLOR,URINE YELLOW (Yellow); GLUCOSE, URINE NEGATIVE (Neg); KETONES,URINE NEGATIVE (Neg); LEUKOCYTE ESTERASE ,URINE NEGATIVE (Neg); NITRITES, URINE NEGATIVE (Neg); OCCULT BLOOD,URINE NEGATIVE (Neg); PH,URINE 6.5 (4.8-8.0); PROTEIN,URINE NEGATIVE (Neg); UROBILINOGEN,URINE 0.2 E.U/dL (0.2-1.0)
[2023-12-21 09:26] LABS: UA COLLECTION TYPE FOLEY CATH
[2023-12-21 09:31] LABS: HEMATOCRIT 30.5 % (35.0-45.0); HEMOGLOBIN 9.7 g/dl (12.0-16.0); MEAN CORPUSCULAR HGB CONC 31.8 g/dL (33.0-36.5); MEAN CORPUSCULAR VOLUME 78.6 FL (78-98); MEAN PLATELET VOLUME 6.8 FL (7.4-10.4); PLATELET COUNT 580 X10'3 (140-440); RED BLOOD COUNT 3.88 X10'6 (4.20-5.60); RED CELL DISTRIBUTION WIDTH 24.9 % (11.5-14.5); WHITE BLOOD COUNT 9.5 X10'3 (4.5-11.0)
[2023-12-21] MEDS: HYDROmorphone/PF 0.2 MG/ML SYRINGE IV ONE (09:32)
[2023-12-21 09:44] LABS: ALBUMIN 2.8 G/DL (3.4-5.0); ANION GAP 8 (8-16); BLOOD UREA NITROGEN 8 MG/DL (7-18); BUN/CREATININE RATIO 12.7 (10.0-20.0); CALCIUM 8.7 MG/DL (8.5-10.1); CHLORIDE 101 MMOL/L (99-107); CREATININE 0.63 MG/DL (0.40-0.90); POTASSIUM 3.5 MMOL/L (3.5-5.1); SODIUM 136 MMOL/L (135-145); TOTAL CARBON DIOXIDE 26.8 MMOL/L (24-32); eCRCL 70 ML/MIN; eGFR > 90 ML/MIN
[2023-12-21 09:53] LABS: GLUCOSE 25 MG/DL (70-104)
[2023-12-21 10:21] LABS: ACANTHOCYTES 2+; ANISOCYTOSIS 3+; LARGE PLATELETS MODERATE; MICROCYTOSIS 1+; PLATELET ESTIMATE INCREASED; TOTAL CELLS COUNTED 100
[2023-12-21 10:22] LABS: ELLIPTOCYTES FEW; SCHISTOCYTES FEW; TARGET CELLS 1+
[2023-12-21] MEDS: Dextrose 10%-water IV solution 1,000 ML IV SCH (11:11)
[2023-12-21] MEDS ORDERED: SUCR1TAB JT (11:59)
[2023-12-21] MEDS: glucagon, human recombinant 1mg kit IM ONE (13:58)
[2023-12-21] MEDS: LIDOcaine 1% 30ml preserv. free vial SQ STA (15:22)
[2023-12-21] MEDS: oxyCODONE IR 5mg (immed. release) tablet PO ONE (15:31)
[2023-12-21] MEDS ORDERED: potassium Cl 20 mEq SR tablet PO PRN (16:30)
[2023-12-21] MEDS ORDERED: magnesium Cl slow-release 64mg tablet PO PRN (16:30)
[2023-12-21] MEDS ORDERED: magnesium hydroxide 30ml (MOM) UD suspension PO PRN (16:30)
[2023-12-21] MEDS ORDERED: magnesium 4gm in 100ml NS 100 ML IV PRN (16:30)
[2023-12-21] MEDS ORDERED: magnesium 2GM in 50ml NS 50 ML IV PRN (16:30)
[2023-12-21] MEDS ORDERED: mag hydrox/Alum hydrox/simeth 30ml oral suspension PO PRN (16:30)
[2023-12-21] MEDS: WATER FOR INJECTION,STERILE 71 ML in dextrose 70%-water 179 ML IV SCH (16:30)
[2023-12-21] MEDS ORDERED: potassium Cl 40MEQ/1/2NS 520ml 520 ML IV PRN (16:30)
[2023-12-21] MEDS ORDERED: acetaminophen 325mg tablet PO PRN (16:30)
[2023-12-21] MEDS ORDERED: PANT40TA54 PO (16:47)
[2023-12-21] MEDS ORDERED: BUPR8TAB4 SL (16:47)
[2023-12-21] MEDS: DEXTROSE 50% IV SCH (16:54)
[2023-12-21] MEDS ORDERED: metoclopramide 10mg tablet PO PRN (17:00)
[2023-12-21] MEDS ORDERED: diphenhydrAMINE 25mg capsule PO PRN (17:00)
[2023-12-21 17:45] LABS: BASOPHILS # (AUTO) 0.1 X10'3 (0-0.2); BASOPHILS % (AUTO) 0.5 % (0-1); EOSINOPHILS % (AUTO) 0.1 % (0-6); HEMATOCRIT 26.8 % (35.0-45.0); HEMOGLOBIN 8.5 g/dl (12.0-16.0); LYMPHOCYTES # (AUTO) 0.3 X10'3 (1.1-4.8); LYMPHOCYTES % (AUTO) 2.3 % (21-51); MEAN CORPUSCULAR HEMOGLOBIN 24.7 PG (27.0-31.0); MEAN CORPUSCULAR HGB CONC 31.8 g/dL (33.0-36.5); MEAN CORPUSCULAR VOLUME 77.7 FL (78-98); MEAN PLATELET VOLUME 6.5 FL (7.4-10.4); MONOCYTES # (AUTO) 1.3 X10'3 (0-0.9); MONOCYTES % (AUTO) 9.6 % (2-12); NEUTROPHILS % (AUTO) 87.5 % (42-75); PLATELET COUNT 533 X10'3 (140-440); RED BLOOD COUNT 3.45 X10'6 (4.20-5.60); RED CELL DISTRIBUTION WIDTH 25.1 % (11.5-14.5); WHITE BLOOD COUNT 13.7 X10'3 (4.5-11.0)
[2023-12-21 18:00] VITALS: TEMP 98.6
[2023-12-21 18:10] LABS: ALBUMIN 2.6 G/DL (3.4-5.0); ANION GAP 6 (8-16); BLOOD UREA NITROGEN 7 MG/DL (7-18); BUN/CREATININE RATIO 11.5 (10.0-20.0); CALCIUM 8.4 MG/DL (8.5-10.1); CHLORIDE 100 MMOL/L (99-107); CREATININE 0.61 MG/DL (0.40-0.90); GLUCOSE 102 MG/DL (70-104); MAGNESIUM 1.9 MG/DL (1.5-2.4); POTASSIUM 3.2 MMOL/L (3.5-5.1); SODIUM 133 MMOL/L (135-145); TOTAL CARBON DIOXIDE 27.4 MMOL/L (24-32); eCRCL 73 ML/MIN; eGFR > 90 ML/MIN
[2023-12-21 18:28] LABS: URINE AMPHETAMINE SCREEN NEGATIVE (Neg); URINE BARBITUATE SCREEN NEGATIVE (Neg); URINE BENZODIAZEPINES SCREEN NEGATIVE (Neg); URINE CANNABINOID SCREEN POSITIVE (Neg); URINE COCAINE SCREEN NEGATIVE (Neg); URINE METHADONE SCREEN NEGATIVE (Neg); URINE OPIATE SCREEN POSITIVE (Neg); URINE PHENCYCLIDINE SCREEN NEGATIVE (Neg)
[2023-12-21 18:38] LABS: CARBAMAZEPINE (TEGRETOL) 2.2 UG/ML (4.0-12.0)
[2023-12-21] MEDS: potassium Cl 20 mEq SR tablet PO PRN (19:04)
[2023-12-21] MEDS: K and/or MAG REPLACEMENT MC SCH (19:04)
[2023-12-21] MEDS: apixaban 5mg tablet PO SCH (19:04)
[2023-12-21] MEDS: pantoprazole 40mg Tablet.DR PO SCH (19:06)
[2023-12-21] MEDS: docusate sod 100mg capsule PO SCH (19:06)
[2023-12-21 19:40] LABS: ANISOCYTOSIS 3+; MICROCYTOSIS 1+; PLATELET ESTIMATE INCREASED; TARGET CELLS 2+
[2023-12-21 19:43] LABS: BURR CELLS 2+; ELLIPTOCYTES FEW; SCHISTOCYTES FEW
[2023-12-21 19:56] LABS: ACANTHOCYTES 1+; HYPOCHROMASIA 2+
[2023-12-21 20:00] VITALS: BP 116/77; PULSE 65; RESP 12; RESP 13; O2SAT 93; O2SAT 96
[2023-12-21 21:00] VITALS: BP 118/77; PULSE 68; RESP 13; O2SAT 93
[2023-12-21] MEDS: BUPRENORPHINE HCL 8 MG SL SCH (21:00)
[2023-12-21] MEDS: oxyCODONE IR 5mg (immed. release) tablet PO PRN (21:32)
[2023-12-21] MEDS: carBAMazepine Ext. Release 200 MG TAB.ER.12H PO SCH (21:33)
[2023-12-21 22:00] VITALS: BP 134/80; PULSE 64; RESP 12; O2SAT 94
[2023-12-21 23:00] VITALS: BP 131/78; PULSE 65; RESP 12; O2SAT 95
[2023-12-22] VITALS (12 sets, daily range): BP systolic 113–157; BP diastolic 64–94; PULSE 60–79; RESP 8–18; O2SAT 89–98
[2023-12-22 02:36] LABS: HEMOGLOBIN 8.7 g/dl (12.0-16.0)
[2023-12-22 02:43] LABS: MEAN PLATELET VOLUME 7.2 FL (7.4-10.4)
[2023-12-22 02:45] LABS: BASOPHILS # (AUTO) 0.1 X10'3 (0-0.2); EOSINOPHILS # (AUTO) 0.1 X10'3 (0-0.9); EOSINOPHILS % (AUTO) 1.1 % (0-6); HEMATOCRIT 27.3 % (35.0-45.0); LYMPHOCYTES # (AUTO) 1.3 X10'3 (1.1-4.8); LYMPHOCYTES % (AUTO) 16.8 % (21-51); MEAN CORPUSCULAR HEMOGLOBIN 24.5 PG (27.0-31.0); MEAN CORPUSCULAR HGB CONC 31.8 g/dL (33.0-36.5); MONOCYTES # (AUTO) 0.7 X10'3 (0-0.9); MONOCYTES % (AUTO) 9.2 % (2-12); NEUTROPHILS # (AUTO) 5.7 X10'3 (1.8-7.7); NEUTROPHILS % (AUTO) 71.9 % (42-75); PLATELET COUNT 535 X10'3 (140-440); RED BLOOD COUNT 3.54 X10'6 (4.20-5.60); RED CELL DISTRIBUTION WIDTH 25.1 % (11.5-14.5); WHITE BLOOD COUNT 7.9 X10'3 (4.5-11.0)
[2023-12-22 02:55] LABS: ALANINE AMINOTRANSFERASE 21 U/L (12-78); ALBUMIN 2.5 G/DL (3.4-5.0); ALBUMIN/GLOBULIN RATIO 0.7 (1.1-1.5); ALKALINE PHOSPHATASE 94 IU/L (46-116); ANION GAP 7 (8-16); ASPARTATE AMINO TRANSFERASE 26 U/L (10-37); BILIRUBIN,TOTAL 0.3 MG/DL (0.1-1.0); BLOOD UREA NITROGEN 5 MG/DL (7-18); BUN/CREATININE RATIO 7.7 (10.0-20.0); CHLORIDE 102 MMOL/L (99-107); CREATININE 0.65 MG/DL (0.40-0.90); GLUCOSE 225 MG/DL (70-104); MAGNESIUM 1.9 MG/DL (1.5-2.4); PHOSPHORUS 2.6 MG/DL (2.3-4.5); POTASSIUM 3.4 MMOL/L (3.5-5.1); SODIUM 134 MMOL/L (135-145); TOTAL CARBON DIOXIDE 25.2 MMOL/L (24-32); eCRCL 68 ML/MIN; eGFR > 90 ML/MIN
[2023-12-22 03:32] LABS: TOTAL CELLS COUNTED 100
[2023-12-22 03:33] LABS: ANISOCYTOSIS 3+; HYPOCHROMASIA 1+; MICROCYTOSIS 1+; PLATELET ESTIMATE INCREASED
[2023-12-22 03:36] LABS: ACANTHOCYTES 2+; BURR CELLS 2+; ELLIPTOCYTES FEW; SCHISTOCYTES FEW
[2023-12-22 03:37] LABS: TARGET CELLS 1+
[2023-12-22 03:38] LABS: ROULEAUX 1+
[2023-12-22] MEDS: potassium Cl 40MEQ/270ML bag 270 ML IV PRN (04:32)
[2023-12-22] MEDS: ondansetron/PF 4mg/2ml inj IV PRN (07:24)
[2023-12-22] MEDS: sucralfate 1 gm tablet PO SCH (08:00)
[2023-12-22] MEDS: PROTEASE PO SCH (08:00)
[2023-12-22] MEDS: LIPASE PO SCH (08:00)
[2023-12-22] MEDS: AMYLASE PO SCH (08:00)
[2023-12-22] MEDS: FLUoxetine 20mg capsule PO SCH (10:12)
[2023-12-22] MEDS ORDERED: DEXTROSE 15 GM of carb/4 tabs (each vial/BOTTLE has 4 tablets) PO PRN ×2 (11:25)
[2023-12-22] MEDS ORDERED: dextrose 50%-water 50ml dispensing syringe IV PRN ×2 (11:25)
[2023-12-22] MEDS ORDERED: glucagon, human recombinant 1mg kit SUBCUT PRN (11:25)
[2023-12-22] MEDS ORDERED: ondansetron/PF 4mg/2ml inj IV PRN (11:28)
[2023-12-22] MEDS ORDERED: sucralfate 1 gm tablet JT SCH (11:43)
[2023-12-22] MEDS ORDERED: sucralfate 1 gm tablet PO SCH (11:43)
[2023-12-22] MEDS ORDERED: LIPASE/PROTEASE/AMYLASE 10,500 units CAPSULE.DR PO SCH (13:00)
[2023-12-22] MEDS ORDERED: insulin regular, human U-100 3ml vial - multi-dose SQ SCH (14:00)
== END 2023-12-22 12:20 | disposition left against medical advice (07) | DRG 420 ==
LOC: ER 07:30 → ED HOLD 16:44 → CICU 2S 19:36
PROVIDERS: ADMIT Internal Medicine Critical Care Medicine; ATTEND Internal Medicine Critical Care Medicine
PROC: 02HV33Z Insertion of Infusion Device into Superior Vena Cava, Percutaneous Approach (ICD-10-PCS; principal; 2023-12-21)
PROC: B548ZZA Ultrasonography of Superior Vena Cava, Guidance (ICD-10-PCS; 2023-12-21)
DX: E13.649 Other specified diabetes mellitus with hypoglycemia without coma (principal); E43 Unspecified severe protein-calorie malnutrition; E89.1 Postprocedural hypoinsulinemia; K86.89 Other specified diseases of pancreas; E87.1 Hypo-osmolality and hyponatremia; F17.210 Nicotine dependence, cigarettes, uncomplicated; G89.29 Other chronic pain; Z53.29 Procedure and treatment not carried out because of patient's decision for other reasons; F32.A Depression, unspecified; Z68.1 Body mass index [BMI] 19.9 or less, adult; G40.909 Epilepsy, unspecified, not intractable, without status epilepticus; G43.909 Migraine, unspecified, not intractable, without status migrainosus; M54.9 Dorsalgia, unspecified; J45.909 Unspecified asthma, uncomplicated; Y83.8 Other surgical procedures as the cause of abnormal reaction of the patient, or of later complication, without mention of misadventure at the time of the procedure; F11.20 Opioid dependence, uncomplicated; D72.829 Elevated white blood cell count, unspecified; E87.6 Hypokalemia; F68.10 Factitious disorder imposed on self, unspecified; Z79.4 Long term (current) use of insulin; Z88.1 Allergy status to other antibiotic agents; Z79.899 Other long term (current) drug therapy; Z87.11 Personal history of peptic ulcer disease; Z90.710 Acquired absence of both cervix and uterus; Z90.81 Acquired absence of spleen; Z90.49 Acquired absence of other specified parts of digestive tract; Z86.718 Personal history of other venous thrombosis and embolism; Y92.89 Other specified places as the place of occurrence of the external cause; Z90.410 Acquired total absence of pancreas
CPT/HCPCS: 36415; 71045; 80048; 80053; 80156; 80305; 81003; 82948; 83735; 84100; 85007; 85008; 85025; 87081; 87088; 92508; 92616; 93005; 96365; 96375; 96376; 99285; A5200; A6212; A6213; A6258; A6449; C1758; G0378; J1170; J1610; J1815; J2405; J3480; J3490; J7030; J7040

== ENCOUNTER 2024-01-03 20:30 | Inpatient (IN) | payer MEDICAID ==
[~2024-01-03] VITALS: Ht 167.6 cm; Wt 41.0 kg
[~2024-01-03 20:30] MED LIST changes: -BUPR2TAB11 SL; +BUPR8TAB4 SL; -DICY20TA12 PO; -ERGO500093 PO; -INSU100V64 SQ; -MV-M1TAB57 PO; -PANT-47 PO; +PANT40TA54 PO; -POTA-207 PO; -PRAZ1CAP5 PO; -SUCR1ORA15 PO; +SUCR1TAB JT; -SUCR1TAB34 JT
[2024-01-03 21:19] LABS: HEMOGLOBIN 11.2 g/dl (12.0-16.0); MEAN CORPUSCULAR HEMOGLOBIN 25.4 PG (27.0-31.0)
[2024-01-03 21:21] LABS: BASOPHILS # (AUTO) 0.2 X10'3 (0-0.2); BASOPHILS % (AUTO) 1.6 % (0-1); EOSINOPHILS # (AUTO) 0.2 X10'3 (0-0.9); EOSINOPHILS % (AUTO) 1.9 % (0-6); HEMATOCRIT 34.9 % (35.0-45.0); LYMPHOCYTES # (AUTO) 1.4 X10'3 (1.1-4.8); LYMPHOCYTES % (AUTO) 14.7 % (21-51); MEAN CORPUSCULAR VOLUME 79.4 FL (78-98); MEAN PLATELET VOLUME 7.8 FL (7.4-10.4); MONOCYTES # (AUTO) 1.1 X10'3 (0-0.9); MONOCYTES % (AUTO) 11.6 % (2-12); NEUTROPHILS # (AUTO) 6.7 X10'3 (1.8-7.7); NEUTROPHILS % (AUTO) 70.2 % (42-75); PLATELET COUNT 488 X10'3 (140-440); RED CELL DISTRIBUTION WIDTH 27.5 % (11.5-14.5); WHITE BLOOD COUNT 9.5 X10'3 (4.5-11.0)
[2024-01-03 21:23] LABS: ALANINE AMINOTRANSFERASE 22 U/L (12-78); ALBUMIN 3.1 G/DL (3.4-5.0); ALBUMIN/GLOBULIN RATIO 0.7 (1.1-1.5); ALKALINE PHOSPHATASE 116 IU/L (46-116); ANION GAP 8 (8-16); ASPARTATE AMINO TRANSFERASE 18 U/L (10-37); BILIRUBIN,TOTAL 0.2 MG/DL (0.1-1.0); BLOOD UREA NITROGEN 4 MG/DL (7-18); BUN/CREATININE RATIO 3.6 (10.0-20.0); CALCIUM 8.3 MG/DL (8.5-10.1); CHLORIDE 96 MMOL/L (99-107); GLUCOSE 219 MG/DL (70-104); LIPASE 8 U/L (16-77); POTASSIUM 4.1 MMOL/L (3.5-5.1); SODIUM 128 MMOL/L (135-145); TOTAL CARBON DIOXIDE 24.3 MMOL/L (24-32); TOTAL PROTEIN 7.4 G/DL (6.4-8.2); eCRCL 44 ML/MIN; eGFR 53 ML/MIN
[2024-01-03] MEDS ORDERED: iohexol 300mg/ml 100ml inj. ONE (21:27)
[2024-01-03 21:35] LABS: C-REACTIVE PROTEIN 0.23 MG/DL (0.0-0.5)
[2024-01-03] MEDS: ondansetron/PF 4mg/2ml inj IV ONE (21:46)
[2024-01-03] MEDS: morphine 4 MG/ML inj SYRINge IV ONE (21:46)
[2024-01-03] MEDS: normal saline 1000ml 1,000 ML IV ONE (21:46)
[2024-01-03 21:58] LABS: ACANTHOCYTES 1+; ANISOCYTOSIS 3+; BURR CELLS 1+; ELLIPTOCYTES FEW; LARGE PLATELETS FEW; MICROCYTOSIS 1+; PLATELET ESTIMATE INCREASED; POIKILOCYTOSIS 1+; SCHISTOCYTES FEW; TARGET CELLS 1+; TOTAL CELLS COUNTED 100
[2024-01-04] VITALS (7 sets, daily range): BP systolic 113–155; BP diastolic 69–87; PULSE 57–60; RESP 14–17; TEMP 96.9–98.2; O2SAT 95–99
[2024-01-04] MEDS: HYDROmorphone 1 mg/ml syringe IV ONE (01:16)
[2024-01-04 01:33] LABS: BILIRUBIN,URINE NEGATIVE (Neg); CLARITY,URINE CLEAR (Clear); COLOR,URINE YELLOW (Yellow); GLUCOSE, URINE NEGATIVE (Neg); KETONES,URINE NEGATIVE (Neg); LEUKOCYTE ESTERASE ,URINE NEGATIVE (Neg); NITRITES, URINE NEGATIVE (Neg); OCCULT BLOOD,URINE NEGATIVE (Neg); PH,URINE 6.5 (4.8-8.0); PROTEIN,URINE NEGATIVE (Neg); UROBILINOGEN,URINE 0.2 E.U/dL (0.2-1.0)
[2024-01-04 01:34] LABS: URINE HCG NEGATIVE (NEG)
[2024-01-04 01:36] LABS: UA COLLECTION TYPE URINAL
[2024-01-04] MEDS ORDERED: morphine 2 MG/ML inj. syringe IV PRN (02:55)
[2024-01-04] MEDS ORDERED: mag hydrox/Alum hydrox/simeth 30ml oral suspension PO PRN (02:55)
[2024-01-04] MEDS ORDERED: acetaminophen 325mg tablet PO PRN (02:55)
[2024-01-04] MEDS ORDERED: magnesium Cl slow-release 64mg tablet PO PRN (02:55)
[2024-01-04] MEDS ORDERED: magnesium hydroxide 30ml (MOM) UD suspension PO PRN (02:55)
[2024-01-04] MEDS ORDERED: magnesium sulf-water 2g/50mL 50 ML IV PRN (02:55)
[2024-01-04] MEDS ORDERED: magnesium sulf-water 4G/100mL 100 ML IV PRN (02:55)
[2024-01-04] MEDS ORDERED: HYDROmorphone/PF 0.2 MG/ML SYRINGE IV PRN (02:55)
[2024-01-04] MEDS ORDERED: potassium Cl 20 mEq SR tablet PO PRN ×2 (02:55)
[2024-01-04] MEDS: HYDROmorphone inj. 0.5 MG/0.5 ML DISP.SYRIN IV PRN ×2 (03:21→11:28)
[2024-01-04] MEDS: normal saline 1000ml 1,000 ML IV SCH (03:22)
[2024-01-04 05:50] LABS: POTASSIUM 3.8 MMOL/L (3.5-5.1)
[2024-01-04] MEDS ORDERED: dextrose 50%-water 50ml dispensing syringe IV PRN (05:50)
[2024-01-04] MEDS ORDERED: glucagon, human recombinant 1mg kit SUBCUT PRN (05:50)
[2024-01-04] MEDS ORDERED: DEXTROSE 15 GM of carb/4 tabs (each vial/BOTTLE has 4 tablets) PO PRN ×2 (05:50)
[2024-01-04] MEDS: INSULIN LISPRO 100 UNIT/ML INSULN.PEN MULTI-DOSE SQ SCH (07:00)
[2024-01-04 07:37] LABS: CARBAMAZEPINE (TEGRETOL) 2.7 UG/ML (4.0-12.0)
[2024-01-04] MEDS: morphine 2 MG/ML inj. syringe IV PRN (07:54)
[2024-01-04] MEDS: pantoprazole 40 MG vial IV SCH (07:55)
[2024-01-04] MEDS ORDERED: enoxaparin 40mg/0.4ml syringe SUBCUT SCH (08:00)
[2024-01-04] MEDS: K and/or MAG REPLACEMENT MC SCH (08:00)
[2024-01-04] MEDS: carBAMazepine Ext. Release 200 MG TAB.ER.12H PO SCH (08:00)
[2024-01-04] MEDS: docusate sod 100mg capsule PO SCH (08:00)
[2024-01-04] MEDS: LIPASE/PROTEASE/AMYLASE 16,800 UNIT CAPSULE.DR PO SCH (08:00)
[2024-01-04] MEDS: dextrose 5%-1/2 normal saline 1,000 ML IV SCH (18:05)
[2024-01-04] MEDS: insulin glargine (Lantus) pen - multi-dose SQ SCH (21:00)
[2024-01-05 05:42] LABS: ALANINE AMINOTRANSFERASE 18 U/L (12-78); ALBUMIN 2.4 G/DL (3.4-5.0); ALBUMIN/GLOBULIN RATIO 0.6 (1.1-1.5); ALKALINE PHOSPHATASE 104 IU/L (46-116); ANION GAP 9 (8-16); ASPARTATE AMINO TRANSFERASE 17 U/L (10-37); BILIRUBIN,TOTAL 0.2 MG/DL (0.1-1.0); BLOOD UREA NITROGEN 4 MG/DL (7-18); BUN/CREATININE RATIO 6.7 (10.0-20.0); CALCIUM 8.3 MG/DL (8.5-10.1); CHLORIDE 105 MMOL/L (99-107); GLUCOSE 123 MG/DL (70-104); HEMOGLOBIN 9.3 g/dl (12.0-16.0); MAGNESIUM 2.1 MG/DL (1.5-2.4); MEAN PLATELET VOLUME 7.7 FL (7.4-10.4); PHOSPHORUS 2.8 MG/DL (2.3-4.5); PLATELET COUNT 583 X10'3 (140-440); POTASSIUM 3.6 MMOL/L (3.5-5.1); SODIUM 135 MMOL/L (135-145); TOTAL CARBON DIOXIDE 20.8 MMOL/L (24-32); TOTAL PROTEIN 6.7 G/DL (6.4-8.2); eCRCL 80 ML/MIN; eGFR > 90 ML/MIN
[2024-01-05 05:44] LABS: HEMATOCRIT 28.9 % (35.0-45.0); MEAN CORPUSCULAR HEMOGLOBIN 25.4 PG (27.0-31.0); MEAN CORPUSCULAR HGB CONC 32.1 g/dL (33.0-36.5); MEAN CORPUSCULAR VOLUME 79.3 FL (78-98); RED BLOOD COUNT 3.64 X10'6 (4.20-5.60); RED CELL DISTRIBUTION WIDTH 28.2 % (11.5-14.5); WHITE BLOOD COUNT 12.9 X10'3 (4.5-11.0)
[2024-01-05 06:30] LABS: ANISOCYTOSIS 3+; ELLIPTOCYTES 1+; MICROCYTOSIS 1+; PLATELET ESTIMATE INCREASED; TARGET CELLS FEW; TOTAL CELLS COUNTED 100
[2024-01-05 06:31] LABS: BURR CELLS 1+; SCHISTOCYTES FEW
[2024-01-05 08:00] VITALS: RESP 16; O2SAT 98
[2024-01-05] MEDS: LIPASE/PROTEASE/AMYLASE 10,500 units CAPSULE.DR PO SCH (09:46)
[2024-01-05] MEDS: metoclopramide 5 mg/ml inj IV PRN (09:47)
[2024-01-05] MEDS: INSULIN LISPRO 100 UNIT/ML INSULN.PEN MULTI-DOSE SQ SCH (12:00)
[2024-01-05] MEDS ORDERED: HYDROmorphone inj. 0.5 MG/0.5 ML DISP.SYRIN IV PRN (17:40)
[2024-01-05 18:00] VITALS: BP 124/87; PULSE 64; RESP 15; TEMP 98.1; O2SAT 99
[2024-01-05 19:00] VITALS: BP 137/90; PULSE 69
[2024-01-05] MEDS: HYDROmorphone inj. 0.5 MG/0.5 ML DISP.SYRIN IV PRN (19:46)
[2024-01-05 22:00] VITALS: BP 131/73; PULSE 60; RESP 17; TEMP 98.1; O2SAT 100
[2024-01-05] MEDS: dextrose 50%-water 50ml dispensing syringe IV PRN (23:07)
[2024-01-05] MEDS: HYDROmorphone/PF 0.2 MG/ML SYRINGE IV PRN (23:15)
[2024-01-06 06:36] LABS: BASOPHILS # (AUTO) 0.1 X10'3 (0-0.2); MEAN CORPUSCULAR HEMOGLOBIN 25.3 PG (27.0-31.0)
[2024-01-06 06:54] VITALS: BP 150/87; PULSE 61; RESP 15; TEMP 98; O2SAT 94
[2024-01-06 07:01] LABS: ALANINE AMINOTRANSFERASE 20 U/L (12-78); ALBUMIN 2.6 G/DL (3.4-5.0); ALBUMIN/GLOBULIN RATIO 0.7 (1.1-1.5); ALKALINE PHOSPHATASE 111 IU/L (46-116); ANION GAP 12 (8-16); ASPARTATE AMINO TRANSFERASE 16 U/L (10-37); BILIRUBIN,TOTAL 0.2 MG/DL (0.1-1.0); BLOOD UREA NITROGEN 5 MG/DL (7-18); BUN/CREATININE RATIO 8.6 (10.0-20.0); CALCIUM 8.3 MG/DL (8.5-10.1); CHLORIDE 104 MMOL/L (99-107); CREATININE 0.58 MG/DL (0.40-0.90); GLUCOSE 113 MG/DL (70-104); MAGNESIUM 1.8 MG/DL (1.5-2.4); PHOSPHORUS 3.8 MG/DL (2.3-4.5); POTASSIUM 3.3 MMOL/L (3.5-5.1); SODIUM 139 MMOL/L (135-145); TOTAL CARBON DIOXIDE 23.4 MMOL/L (24-32); TOTAL PROTEIN 6.3 G/DL (6.4-8.2); eCRCL 83 ML/MIN; eGFR > 90 ML/MIN
[2024-01-06 07:30] VITALS: RESP 16
[2024-01-06 07:59] LABS: HEMATOCRIT 30.7 % (35.0-45.0); HEMOGLOBIN 9.8 g/dl (12.0-16.0); RED BLOOD COUNT 3.89 X10'6 (4.20-5.60); WHITE BLOOD COUNT 9.4 X10'3 (4.5-11.0)
[2024-01-06 08:00] LABS: LYMPHOCYTES % (AUTO) 10.9 % (21-51); MEAN CORPUSCULAR VOLUME 79.1 FL (78-98); MEAN PLATELET VOLUME 7.5 FL (7.4-10.4); NEUTROPHILS % (AUTO) 74.3 % (42-75); PLATELET COUNT 627 X10'3 (140-440)
[2024-01-06 08:01] LABS: BASOPHILS % (AUTO) 1.2 % (0-1); EOSINOPHILS # (AUTO) 0.2 X10'3 (0-0.9); EOSINOPHILS % (AUTO) 1.6 % (0-6); MONOCYTES # (AUTO) 1.1 X10'3 (0-0.9)
[2024-01-06 10:15] VITALS: BP 144/90; PULSE 72; RESP 16; TEMP 97.9; O2SAT 96
[2024-01-06 12:09] VITALS: RESP 16; O2SAT 96
[2024-01-06] MEDS: ondansetron/PF 4mg/2ml inj IV PRN (16:12)
[2024-01-06 18:00] VITALS: BP 132/87; PULSE 72; RESP 14; TEMP 97.6; O2SAT 94
[2024-01-06 22:00] VITALS: BP 119/71; PULSE 59; RESP 16; TEMP 98; O2SAT 94
[2024-01-06] MEDS: potassium Cl 40MEQ/1/2NS 520ml 520 ML IV PRN (22:11)
[2024-01-07 02:17] VITALS: BP 156/89; PULSE 61
[2024-01-07 06:00] VITALS: BP 121/71; PULSE 70; RESP 17; TEMP 97.6; O2SAT 98
[2024-01-07 07:15] LABS: MEAN PLATELET VOLUME 7.6 FL (7.4-10.4); RED BLOOD COUNT 3.91 X10'6 (4.20-5.60)
[2024-01-07 07:17] LABS: HEMATOCRIT 30.9 % (35.0-45.0); HEMOGLOBIN 9.8 g/dl (12.0-16.0); MEAN CORPUSCULAR HEMOGLOBIN 25.1 PG (27.0-31.0); MEAN CORPUSCULAR HGB CONC 31.8 g/dL (33.0-36.5); PLATELET COUNT 666 X10'3 (140-440); RED CELL DISTRIBUTION WIDTH 27.2 % (11.5-14.5); WHITE BLOOD COUNT 9.5 X10'3 (4.5-11.0)
[2024-01-07 07:38] LABS: ALANINE AMINOTRANSFERASE 24 U/L (12-78); ALBUMIN 2.5 G/DL (3.4-5.0); ALBUMIN/GLOBULIN RATIO 0.7 (1.1-1.5); ALKALINE PHOSPHATASE 110 IU/L (46-116); ANION GAP 11 (8-16); ASPARTATE AMINO TRANSFERASE 26 U/L (10-37); BILIRUBIN,TOTAL 0.2 MG/DL (0.1-1.0); BLOOD UREA NITROGEN 4 MG/DL (7-18); BUN/CREATININE RATIO 7.4 (10.0-20.0); CALCIUM 8.4 MG/DL (8.5-10.1); CHLORIDE 105 MMOL/L (99-107); CREATININE 0.54 MG/DL (0.40-0.90); MAGNESIUM 1.7 MG/DL (1.5-2.4); PHOSPHORUS 3.1 MG/DL (2.3-4.5); POTASSIUM 3.3 MMOL/L (3.5-5.1); SODIUM 140 MMOL/L (135-145); TOTAL CARBON DIOXIDE 23.8 MMOL/L (24-32); TOTAL PROTEIN 6.2 G/DL (6.4-8.2); eCRCL 89 ML/MIN; eGFR > 90 ML/MIN
[2024-01-07 07:49] LABS: GLUCOSE 38 MG/DL (70-104)
[2024-01-07 08:15] LABS: ANISOCYTOSIS 3+; MICROCYTOSIS 1+; PLATELET ESTIMATE INCREASED; TOTAL CELLS COUNTED 100
[2024-01-07 08:18] LABS: ACANTHOCYTES 1+; BURR CELLS 1+; SPHEROCYTES FEW; TARGET CELLS 1+
[2024-01-07 08:19] LABS: SCHISTOCYTES 1+
[2024-01-07 10:00] VITALS: BP 137/83; PULSE 75; RESP 14; TEMP 98.5; O2SAT 96
[2024-01-07] MEDS ORDERED: potassium Cl 20 mEq SR tablet PO PRN ×2 (10:05)
[2024-01-07] MEDS ORDERED: magnesium sulf-water 4G/100mL 100 ML IV PRN (10:05)
[2024-01-07] MEDS ORDERED: magnesium Cl slow-release 64mg tablet PO PRN (10:05)
[2024-01-07] MEDS ORDERED: magnesium sulf-water 2g/50mL 50 ML IV PRN (10:05)
[2024-01-07] MEDS: dextrose 5%-1/2 normal saline 1,000 ML IV SCH (12:16)
[2024-01-07] MEDS: potassium Cl 40MEQ/1/2NS 520ml 520 ML IV PRN (12:16)
[2024-01-07 15:12] VITALS: BP 148/83; PULSE 60; RESP 16; O2SAT 100
[2024-01-07 18:00] VITALS: BP 130/77; PULSE 59; RESP 14; TEMP 97.2; O2SAT 98
[2024-01-07] MEDS: K and/or MAG REPLACEMENT MC SCH (19:28)
[2024-01-07 22:00] VITALS: BP 143/91; PULSE 63; RESP 15; TEMP 96.6; O2SAT 96
[2024-01-08 06:00] VITALS: BP 123/76; RESP 15; TEMP 97.4; O2SAT 97
[2024-01-08 06:51] LABS: ALBUMIN 2.4 G/DL (3.4-5.0); ANION GAP 10 (8-16); BILIRUBIN,TOTAL 0.2 MG/DL (0.1-1.0); BLOOD UREA NITROGEN 2 MG/DL (7-18); BUN/CREATININE RATIO 3.2 (10.0-20.0); CALCIUM 8.4 MG/DL (8.5-10.1); CHLORIDE 102 MMOL/L (99-107); CREATININE 0.62 MG/DL (0.40-0.90); GLUCOSE 206 MG/DL (70-104); MAGNESIUM 1.6 MG/DL (1.5-2.4); PHOSPHORUS 2.9 MG/DL (2.3-4.5); POTASSIUM 3.6 MMOL/L (3.5-5.1); SODIUM 134 MMOL/L (135-145); TOTAL CARBON DIOXIDE 21.6 MMOL/L (24-32); TOTAL PROTEIN 6.2 G/DL (6.4-8.2); eCRCL 78 ML/MIN; eGFR > 90 ML/MIN
[2024-01-08 06:52] LABS: ALANINE AMINOTRANSFERASE 28 U/L (12-78); ALBUMIN/GLOBULIN RATIO 0.6 (1.1-1.5); ALKALINE PHOSPHATASE 124 IU/L (46-116); ASPARTATE AMINO TRANSFERASE 31 U/L (10-37)
[2024-01-08 07:02] LABS: EOSINOPHILS # (AUTO) 0.1 X10'3 (0-0.9); HEMOGLOBIN 9.5 g/dl (12.0-16.0); MEAN CORPUSCULAR VOLUME 79.5 FL (78-98); MEAN PLATELET VOLUME 7.9 FL (7.4-10.4); NEUTROPHILS # (AUTO) 7.1 X10'3 (1.8-7.7); WHITE BLOOD COUNT 9.6 X10'3 (4.5-11.0)
[2024-01-08 07:06] LABS: BASOPHILS # (AUTO) 0.1 X10'3 (0-0.2); BASOPHILS % (AUTO) 0.8 % (0-1); HEMATOCRIT 29.8 % (35.0-45.0); LYMPHOCYTES # (AUTO) 0.4 X10'3 (1.1-4.8); MEAN CORPUSCULAR HEMOGLOBIN 25.5 PG (27.0-31.0); MONOCYTES % (AUTO) 20.5 % (2-12); NEUTROPHILS % (AUTO) 73.7 % (42-75); PLATELET COUNT 655 X10'3 (140-440); RED BLOOD COUNT 3.75 X10'6 (4.20-5.60); RED CELL DISTRIBUTION WIDTH 27.9 % (11.5-14.5)
[2024-01-08 08:00] VITALS: RESP 15; O2SAT 97
[2024-01-08 08:54] LABS: TOTAL CELLS COUNTED 100
[2024-01-08 08:55] LABS: ANISOCYTOSIS 3+; MICROCYTOSIS 1+; PLATELET ESTIMATE INCREASED; TARGET CELLS 1+
[2024-01-08 08:56] LABS: BURR CELLS 1+; HYPOCHROMASIA 1+; SCHISTOCYTES FEW
[2024-01-08 09:06] LABS: ACANTHOCYTES FEW
[2024-01-08] MEDS: HYDROmorphone 1 mg/ml syringe ONE (10:49)
[2024-01-08 11:53] VITALS: BP 150/85; PULSE 74; RESP 16; TEMP 98.4; O2SAT 97
[2024-01-08] MEDS ORDERED: HYDROmorphone inj. 0.5 MG/0.5 ML DISP.SYRIN IV PRN (15:35)
[2024-01-08] MEDS ORDERED: acetaminophen 325mg/10.15ml oral unit dose solution JT PRN (16:04)
[2024-01-08] MEDS ORDERED: DEXTROSE 15 GM of carb/4 tabs (each vial/BOTTLE has 4 tablets) JT PRN ×2 (16:04)
[2024-01-08] MEDS ORDERED: mag hydrox/Alum hydrox/simeth 30ml oral suspension JT PRN (16:05)
[2024-01-08] MEDS ORDERED: magnesium hydroxide 30ml (MOM) UD suspension JT PRN (16:06)
[2024-01-08] MEDS ORDERED: POTASSIUM CHLORIDE 20 MEQ/15 ML oral solution JT PRN ×2 (16:06→16:07)
[2024-01-08 18:00] VITALS: BP 124/79; PULSE 57; RESP 15; TEMP 98.2; O2SAT 97
[2024-01-08 18:36] LABS: PREALBUMIN 19.4 MG/DL (19-36)
[2024-01-08] MEDS: HYDROmorphone 1 mg/ml syringe IV PRN (19:32)
[2024-01-08] MEDS: docusate sodium 100mg/10ml UD cup JT SCH (20:00)
[2024-01-08 22:00] VITALS: BP 154/90; PULSE 58; RESP 16; TEMP 97; O2SAT 97
[2024-01-09 06:00] VITALS: BP 124/84; PULSE 58; RESP 15; TEMP 97.1; O2SAT 95
[2024-01-09 08:13] LABS: BASOPHILS # (AUTO) 0.1 X10'3 (0-0.2); EOSINOPHILS # (AUTO) 0.1 X10'3 (0-0.9); WHITE BLOOD COUNT 8.3 X10'3 (4.5-11.0)
[2024-01-09 08:16] LABS: BASOPHILS % (AUTO) 1.7 % (0-1); EOSINOPHILS % (AUTO) 1.4 % (0-6); HEMATOCRIT 27.8 % (35.0-45.0); LYMPHOCYTES # (AUTO) 0.6 X10'3 (1.1-4.8); LYMPHOCYTES % (AUTO) 6.8 % (21-51); MEAN CORPUSCULAR HEMOGLOBIN 25.7 PG (27.0-31.0); MEAN CORPUSCULAR HGB CONC 32.2 g/dL (33.0-36.5); MEAN CORPUSCULAR VOLUME 79.8 FL (78-98); MEAN PLATELET VOLUME 7.9 FL (7.4-10.4); MONOCYTES # (AUTO) 1.2 X10'3 (0-0.9); MONOCYTES % (AUTO) 14.8 % (2-12); NEUTROPHILS # (AUTO) 6.2 X10'3 (1.8-7.7); NEUTROPHILS % (AUTO) 75.3 % (42-75); PLATELET COUNT 628 X10'3 (140-440); RED BLOOD COUNT 3.49 X10'6 (4.20-5.60)
[2024-01-09 08:33] LABS: ALANINE AMINOTRANSFERASE 32 U/L (12-78); ALBUMIN 2.3 G/DL (3.4-5.0); ALBUMIN/GLOBULIN RATIO 0.6 (1.1-1.5); ALKALINE PHOSPHATASE 132 IU/L (46-116); ANION GAP 8 (8-16); ASPARTATE AMINO TRANSFERASE 33 U/L (10-37); BILIRUBIN,TOTAL 0.2 MG/DL (0.1-1.0); BLOOD UREA NITROGEN 6 MG/DL (7-18); BUN/CREATININE RATIO 10.3 (10.0-20.0); CALCIUM 8.2 MG/DL (8.5-10.1); CHLORIDE 105 MMOL/L (99-107); CREATININE 0.58 MG/DL (0.40-0.90); GLUCOSE 253 MG/DL (70-104); MAGNESIUM 1.7 MG/DL (1.5-2.4); POTASSIUM 3.7 MMOL/L (3.5-5.1); SODIUM 136 MMOL/L (135-145); TOTAL CARBON DIOXIDE 22.9 MMOL/L (24-32); TOTAL PROTEIN 6.1 G/DL (6.4-8.2); eCRCL 78 ML/MIN; eGFR > 90 ML/MIN
[2024-01-09 10:00] VITALS: BP 156/84; PULSE 63; RESP 18; TEMP 97.2; O2SAT 97
== END 2024-01-09 12:25 | disposition home or self-care (01) | DRG 252 ==
LOC: ER 20:31 → ED HOLD 01-04 03:00 → EDBEDREQ 01-04 03:31 → ORTHO 4S 01-04 04:00
PROVIDERS: ADMIT Internal Medicine Pulmonary Disease; ATTEND Internal Medicine
DX: K94.13 Enterostomy malfunction (principal); N17.9 Acute kidney failure, unspecified; E87.1 Hypo-osmolality and hyponatremia; F32.A Depression, unspecified; G43.909 Migraine, unspecified, not intractable, without status migrainosus; J45.909 Unspecified asthma, uncomplicated; G89.29 Other chronic pain; M54.9 Dorsalgia, unspecified; G40.909 Epilepsy, unspecified, not intractable, without status epilepticus; E87.6 Hypokalemia; E11.65 Type 2 diabetes mellitus with hyperglycemia; Y83.8 Other surgical procedures as the cause of abnormal reaction of the patient, or of later complication, without mention of misadventure at the time of the procedure; Y82.8 Other medical devices associated with adverse incidents; Y92.89 Other specified places as the place of occurrence of the external cause; Z79.01 Long term (current) use of anticoagulants; Z90.710 Acquired absence of both cervix and uterus; Z87.891 Personal history of nicotine dependence; Z90.49 Acquired absence of other specified parts of digestive tract; Z90.81 Acquired absence of spleen; Z79.899 Other long term (current) drug therapy; Z87.11 Personal history of peptic ulcer disease; Z88.1 Allergy status to other antibiotic agents
CPT/HCPCS: 36415; 74177; 80053; 80156; 81003; 81025; 82570; 82948; 83690; 83735; 83930; 83935; 84100; 84132; 84133; 84134; 84145; 84300; 84540; 85007; 85025; 85651; 86140; 87081; 96361; 96374; 96375; 99285; A6209; A6213; A6449; G0378; J1170; J1815; J2270; J2405; J2470; J2765; J3480; J3490; J7030; Q9967

== ENCOUNTER 2024-01-23 16:47 | Emergency (ER) | payer MEDICAID ==
[~2024-01-23] VITALS: Ht 167.6 cm; Wt 41.2 kg
[2024-01-23] MEDS: morphine 4 MG/ML inj SYRINge IV ONE (17:53)
[2024-01-23] MEDS ORDERED: Insulin Reg/NS 100units/100mL 100 ML IV PRN (18:10)
[2024-01-23 18:13] LABS: ABG HCO3 5.4 mmol/L (22.0-26.0); ABG OXYGEN SATURATION 95.7 % (94-97); ABG PCO2 (T) 15.1 mmHg (32.0-45.0); ABG PH (T) 7.171 (7.350-7.450); ABG PO2 (T) 102.8 mmHg (75.0-100.0); ALLEN'S TEST POSITIVE; FCOHb 0.3 % (0.0-3.9); FHHb 4.3 % (0.0-5.0); FMetHb 0.3 % (0.0-1.5); FO2Hb 95.1 % (94-97); MODE RA; PATIENT TEMPERATURE 37.1; TOTAL HEMOGLOBIN 10.3 G/dl (12.0-16.0)
[2024-01-23 18:48] LABS: EOSINOPHILS % (AUTO) 0.1 % (0-6); HEMOGLOBIN 9.4 g/dl (12.0-16.0); MEAN PLATELET VOLUME 8.3 FL (7.4-10.4); MONOCYTES # (AUTO) 5.3 X10'3 (0-0.9)
[2024-01-23 18:50] LABS: BASOPHILS # (AUTO) 0.1 X10'3 (0-0.2); BASOPHILS % (AUTO) 0.2 % (0-1); LYMPHOCYTES # (AUTO) 0.3 X10'3 (1.1-4.8); LYMPHOCYTES % (AUTO) 1.1 % (21-51); MEAN CORPUSCULAR HEMOGLOBIN 25.9 PG (27.0-31.0); MEAN CORPUSCULAR HGB CONC 30.2 g/dL (33.0-36.5); MEAN CORPUSCULAR VOLUME 85.8 FL (78-98); MONOCYTES % (AUTO) 19.6 % (2-12); NEUTROPHILS # (AUTO) 21.2 X10'3 (1.8-7.7); PLATELET COUNT 592 X10'3 (140-440); RED BLOOD COUNT 3.61 X10'6 (4.20-5.60); RED CELL DISTRIBUTION WIDTH 27.8 % (11.5-14.5)
[2024-01-23] MEDS: normal saline 1000ML IV soln IVB ONE (18:50)
[2024-01-23 18:53] LABS: WHITE BLOOD COUNT 26.9 X10'3 (4.5-11.0)
[2024-01-23] MEDS: vancomycin/NS 1 GM ADD-VANTAGE 250 ML IV ONE (18:58)
[2024-01-23 19:18] LABS: ALANINE AMINOTRANSFERASE 25 U/L (12-78); ALBUMIN 2.5 G/DL (3.4-5.0); ALBUMIN/GLOBULIN RATIO 0.5 (1.1-1.5); ALKALINE PHOSPHATASE 211 IU/L (46-116); ANION GAP 32 (8-16); ASPARTATE AMINO TRANSFERASE 29 U/L (10-37); BILIRUBIN,DIRECT 0.1 MG/DL (0-0.3); BILIRUBIN,TOTAL 0.6 MG/DL (0.1-1.0); BLOOD UREA NITROGEN 24 MG/DL (7-18); BUN/CREATININE RATIO 17.4 (10.0-20.0); CALCIUM 8.3 MG/DL (8.5-10.1); CHLORIDE 96 MMOL/L (99-107); CREATININE 1.38 MG/DL (0.40-0.90); SODIUM 136 MMOL/L (135-145); TOTAL PROTEIN 7.6 G/DL (6.4-8.2); eCRCL 33 ML/MIN; eGFR 41 ML/MIN
[2024-01-23] MEDS ORDERED: dextrose 50%-water 50ml dispensing syringe IV PRN (19:20)
[2024-01-23] MEDS ORDERED: potassium CL 20mEq in D5-1/2NS 1,000 ML IV PRN (19:20)
[2024-01-23 19:23] LABS: BILIRUBIN,URINE NEGATIVE (Neg); CLARITY,URINE CLEAR (Clear); COLOR,URINE STRAW (Yellow); GLUCOSE, URINE 500 mg/dl (Neg); KETONES,URINE >=80 mg/dl (Neg); LEUKOCYTE ESTERASE ,URINE NEGATIVE (Neg); NITRITES, URINE NEGATIVE (Neg); OCCULT BLOOD,URINE SMALL (Neg); PROTEIN,URINE TRACE mg/dl (Neg); UROBILINOGEN,URINE 0.2 E.U/dL (0.2-1.0)
[2024-01-23 19:32] LABS: UA COLLECTION TYPE NON-SPECIFIED
[2024-01-23 19:32] LABS: GLUCOSE 527 MG/DL (70-104); TOTAL CARBON DIOXIDE 7.7 MMOL/L (24-32)
[2024-01-23 19:37] LABS: BACTERIA,URINE FEW /HPF (Neg); SQUAMOUS EPITHELIAL CELL,UR FEW /LPF (FEW); TRANSITIONAL EPI CELLS,URINE FEW /HPF; WBC,URINE 0-4 /HPF (0-4)
[2024-01-23 19:38] LABS: HYALINE CASTS 0-3 /LPF (NEGATIVE)
[2024-01-23 20:06] LABS: ANISOCYTOSIS 3+; PLATELET ESTIMATE INCREASED; TOTAL CELLS COUNTED 100
[2024-01-23 20:08] LABS: ACANTHOCYTES FEW; BURR CELLS FEW; HYPOCHROMASIA 1+
[2024-01-23 20:09] LABS: TARGET CELLS FEW
[2024-01-23] MEDS: Insulin Reg/NS 100units/100mL 100 ML IV SCH (20:09)
[2024-01-23 20:10] LABS: SCHISTOCYTES FEW
[2024-01-23] MEDS: normal saline 1000ml 1,000 ML IV SCH (20:11)
[2024-01-23] MEDS: piperacillin/tazo 3.375gm/50ml 50 ML IV ONE (21:05)
[2024-01-23] MEDS: HYDROmorphone 1 mg/ml syringe IV ONE (21:11)
[2024-01-23] MEDS: clindamycin-Cleocin 900mg/D5W 50 ML IV ONE (21:59)
[2024-01-23 22:17] VITALS: BP 137/86; PULSE 99; RESP 18; TEMP 97.9; O2SAT 100
== END 2024-01-23 23:37 | disposition short-term general hospital (02) ==
LOC: ER 16:47
DX: E11.10 Type 2 diabetes mellitus with ketoacidosis without coma (principal); G93.41 Metabolic encephalopathy; L03.211 Cellulitis of face; G89.29 Other chronic pain; M54.9 Dorsalgia, unspecified; G43.909 Migraine, unspecified, not intractable, without status migrainosus; J45.909 Unspecified asthma, uncomplicated; E11.9 Type 2 diabetes mellitus without complications; F32.A Depression, unspecified; F12.90 Cannabis use, unspecified, uncomplicated; Z90.49 Acquired absence of other specified parts of digestive tract; Z98.890 Other specified postprocedural states; Z56.0 Unemployment, unspecified; Z88.1 Allergy status to other antibiotic agents; Z79.899 Other long term (current) drug therapy
CPT/HCPCS: 36415; 36600; 70486; 71045; 74176; 80048; 80076; 81001; 82803; 82948; 83605; 84145; 85007; 85018; 85025; 87040; 93005; 96365; 96366; 96368; 96375; 99291; J1170; J1815; J2270; J3370; J3490; J7030; A4615

== ENCOUNTER 2024-07-11 16:57 | Emergency (ER) | payer MEDICAID, MEDICARE ==
[~2024-07-11] VITALS: Ht 152.4 cm; Wt 40.0 kg
[2024-07-11 17:03] VITALS: TEMP 97
[2024-07-11 18:52] LABS: BASOPHILS # (AUTO) 0.1 X10'3 (0-0.2); BASOPHILS % (AUTO) 0.5 % (0-1); EOSINOPHILS # (AUTO) 0.1 X10'3 (0-0.9); EOSINOPHILS % (AUTO) 0.5 % (0-6); HEMATOCRIT 34.1 % (35.0-45.0); HEMOGLOBIN 11.1 g/dl (12.0-16.0); LYMPHOCYTES # (AUTO) 0.6 X10'3 (1.1-4.8); LYMPHOCYTES % (AUTO) 3.7 % (21-51); MEAN CORPUSCULAR HEMOGLOBIN 31.7 PG (27.0-31.0); MEAN CORPUSCULAR HGB CONC 32.6 g/dL (33.0-36.5); MEAN CORPUSCULAR VOLUME 97.2 FL (78-98); MEAN PLATELET VOLUME 8.2 FL (7.4-10.4); MONOCYTES # (AUTO) 1.3 X10'3 (0-0.9); MONOCYTES % (AUTO) 8.5 % (2-12); NEUTROPHILS # (AUTO) 13.5 X10'3 (1.8-7.7); NEUTROPHILS % (AUTO) 86.8 % (42-75); PLATELET COUNT 567 X10'3 (140-440); RED CELL DISTRIBUTION WIDTH 19.9 % (11.5-14.5); WHITE BLOOD COUNT 15.6 X10'3 (4.5-11.0)
[2024-07-11 19:23] LABS: ALANINE AMINOTRANSFERASE 23 U/L (12-78); ALBUMIN 2.4 G/DL (3.4-5.0); ALBUMIN/GLOBULIN RATIO 0.7 (1.1-1.5); ALKALINE PHOSPHATASE 144 IU/L (46-116); ANION GAP 4 (8-16); ASPARTATE AMINO TRANSFERASE 18 U/L (10-37); BILIRUBIN,TOTAL 0.2 MG/DL (0.1-1.0); BLOOD UREA NITROGEN 4 MG/DL (7-18); BUN/CREATININE RATIO 6.9 (10.0-20.0); CALCIUM 8.2 MG/DL (8.5-10.1); CHLORIDE 104 MMOL/L (99-107); CREATININE 0.58 MG/DL (0.40-0.90); GLUCOSE 57 MG/DL (70-104); POTASSIUM 4.1 MMOL/L (3.5-5.1); SODIUM 137 MMOL/L (135-145); TOTAL CARBON DIOXIDE 29.3 MMOL/L (24-32); TOTAL PROTEIN 5.8 G/DL (6.4-8.2); eCRCL 77 ML/MIN; eGFR > 90 ML/MIN
[2024-07-11] MEDS ORDERED: iohexol 300mg/ml 100ml inj. ONE (19:29)
[2024-07-11 19:30] LABS: ACANTHOCYTES 1+; ANISOCYTOSIS 1+; PLATELET ESTIMATE INCREASED; POIKILOCYTOSIS 2+; TARGET CELLS 1+; TOTAL CELLS COUNTED 100
[2024-07-11] MEDS: HYDROmorphone 1 mg/ml syringe IV ONE (21:40)
[2024-07-11] MEDS ORDERED: ONDA-243 PO (23:15)
[2024-07-11 23:56] VITALS: BP 133/89; PULSE 70; RESP 18; O2SAT 98
== END 2024-07-12 | disposition home or self-care (01) ==
LOC: ER 16:57
DX: R10.84 Generalized abdominal pain (principal); R11.2 Nausea with vomiting, unspecified; J45.909 Unspecified asthma, uncomplicated; E11.9 Type 2 diabetes mellitus without complications; G89.29 Other chronic pain; M54.9 Dorsalgia, unspecified; F12.90 Cannabis use, unspecified, uncomplicated; F32.A Depression, unspecified; G43.909 Migraine, unspecified, not intractable, without status migrainosus; Z88.1 Allergy status to other antibiotic agents; Z79.4 Long term (current) use of insulin; Z79.899 Other long term (current) drug therapy; Z93.1 Gastrostomy status; Z90.49 Acquired absence of other specified parts of digestive tract; Z90.710 Acquired absence of both cervix and uterus; Z56.0 Unemployment, unspecified
CPT/HCPCS: 36415; 71045; 74177; 80053; 82948; 83605; 83735; 84145; 84484; 85007; 85025; 87040; 93005; 96374; 99285; J1171; Q9967

== ENCOUNTER 2024-07-26 14:27 | Emergency (ER) | payer MEDICARE, MEDICAID ==
[~2024-07-26] VITALS: Ht 167.6 cm; Wt 39.1 kg
[~2024-07-26 14:27] MED LIST changes: +ONDA-243 PO
[2024-07-26 15:35] LABS: BASOPHILS # (AUTO) 0.1 X10'3 (0-0.2); BASOPHILS % (AUTO) 1.1 % (0-1); EOSINOPHILS # (AUTO) 0.1 X10'3 (0-0.9); EOSINOPHILS % (AUTO) 0.6 % (0-6); HEMATOCRIT 39.5 % (35.0-45.0); HEMOGLOBIN 12.9 g/dl (12.0-16.0); LYMPHOCYTES # (AUTO) 1.4 X10'3 (1.1-4.8); LYMPHOCYTES % (AUTO) 16.1 % (21-51); MEAN CORPUSCULAR HEMOGLOBIN 32.4 PG (27.0-31.0); MEAN CORPUSCULAR HGB CONC 32.6 g/dL (33.0-36.5); MEAN CORPUSCULAR VOLUME 99.3 FL (78-98); MEAN PLATELET VOLUME 9.2 FL (7.4-10.4); MONOCYTES # (AUTO) 0.7 X10'3 (0-0.9); MONOCYTES % (AUTO) 7.9 % (2-12); NEUTROPHILS # (AUTO) 6.6 X10'3 (1.8-7.7); NEUTROPHILS % (AUTO) 74.3 % (42-75); PLATELET COUNT 494 X10'3 (140-440); RED BLOOD COUNT 3.98 X10'6 (4.20-5.60); RED CELL DISTRIBUTION WIDTH 18.3 % (11.5-14.5); WHITE BLOOD COUNT 8.8 X10'3 (4.5-11.0)
[2024-07-26 15:46] LABS: ALANINE AMINOTRANSFERASE 21 U/L (12-78); ALBUMIN 3.2 G/DL (3.4-5.0); ALBUMIN/GLOBULIN RATIO 0.7 (1.1-1.5); ALKALINE PHOSPHATASE 190 IU/L (46-116); ANION GAP 8 (8-16); ASPARTATE AMINO TRANSFERASE 19 U/L (10-37); BILIRUBIN,TOTAL 0.4 MG/DL (0.1-1.0); BLOOD UREA NITROGEN 5 MG/DL (7-18); BUN/CREATININE RATIO 4.8 (10.0-20.0); CALCIUM 8.7 MG/DL (8.5-10.1); CHLORIDE 94 MMOL/L (99-107); CREATININE 1.04 MG/DL (0.40-0.90); LIPASE 10 U/L (16-77); POTASSIUM 4.1 MMOL/L (3.5-5.1); SODIUM 130 MMOL/L (135-145); TOTAL CARBON DIOXIDE 28.2 MMOL/L (24-32); TOTAL PROTEIN 7.6 G/DL (6.4-8.2); eCRCL 42 ML/MIN; eGFR 57 ML/MIN
[2024-07-26 15:52] LABS: GLUCOSE 582 MG/DL (70-104)
[2024-07-26] MEDS: ondansetron/PF 4mg/2ml inj IV ONE ×2 (17:58→20:53)
[2024-07-26] MEDS: normal saline 1000ML IV soln IVB ONE (17:59)
[2024-07-26] MEDS: insulin regular, human 10 units/0.1 ml syringe IV ONE (18:02)
[2024-07-26] MEDS: HYDROmorphone inj. 0.5 MG/0.5 ML DISP.SYRIN IV ONE ×4 (19:08→22:19)
[2024-07-26] MEDS: diphenhydrAMINE 50 mg/ml inj IV ONE (19:08)
[2024-07-26 20:45] LABS: BILIRUBIN,URINE NEGATIVE (Neg); CLARITY,URINE CLEAR (Clear); COLOR,URINE YELLOW (Yellow); GLUCOSE, URINE >=1000 mg/dl (Neg); KETONES,URINE NEGATIVE (Neg); LEUKOCYTE ESTERASE ,URINE NEGATIVE (Neg); NITRITES, URINE NEGATIVE (Neg); OCCULT BLOOD,URINE NEGATIVE (Neg); PROTEIN,URINE NEGATIVE (Neg); UROBILINOGEN,URINE 0.2 E.U/dL (0.2-1.0)
[2024-07-26 20:46] LABS: URINE HCG NEGATIVE (NEG)
[2024-07-26 20:48] LABS: UA COLLECTION TYPE CLN CATCH MIDSTREAM
[2024-07-26 20:50] LABS: BACTERIA,URINE 1+ /HPF (Neg); RBC,URINE 0-2 /HPF (0-2); SQUAMOUS EPITHELIAL CELL,UR MODERATE /LPF (FEW); WBC,URINE NONE SEEN /HPF (0-4); YEAST FEW /HPF (NEGATIVE)
[2024-07-26] MEDS ORDERED: diatrozoate meglu/diatrozoate sod (37% iodine) 120ML oral solution PO ONE (22:05)
[2024-07-26] MEDS: metoclopramide 5 mg/ml inj IV ONE (22:19)
[2024-07-26] MEDS: diatr meglu/diatrizoate 30ml oral sol.-(3 dose) bottle PO ONE (22:20)
[2024-07-26 23:04] VITALS: BP 134/88; PULSE 61; RESP 16; TEMP 98.3; O2SAT 100
== END 2024-07-26 23:13 | disposition home or self-care (01) ==
LOC: ER 14:28
DX: E11.65 Type 2 diabetes mellitus with hyperglycemia (principal); Z46.59 Encounter for fitting and adjustment of other gastrointestinal appliance and device; G89.29 Other chronic pain; J45.909 Unspecified asthma, uncomplicated; G43.909 Migraine, unspecified, not intractable, without status migrainosus; Z88.5 Allergy status to narcotic agent; Z88.1 Allergy status to other antibiotic agents; Z90.49 Acquired absence of other specified parts of digestive tract; Z87.11 Personal history of peptic ulcer disease; Z90.710 Acquired absence of both cervix and uterus
CPT/HCPCS: 36415; 74018; 80053; 81001; 81025; 82948; 83690; 85025; 96361; 96374; 96375; 96376; 99284; A4314; J1171; J1200; J1815; J2405; J2765; J7030; Q9963

== ENCOUNTER 2025-04-10 13:15 | Emergency (ER) | payer MEDICARE, MEDICAID ==
[~2025-04-10] VITALS: Ht 165.1 cm; Wt 43.8 kg
[2025-04-10 13:20] VITALS: BP 130/86; PULSE 82; RESP 18; O2SAT 99
--- NOTE | 2025-04-10 15:16 | Physician Documentation ---
History of Present Illness ~ General Chief Complaint: See Chief Complaint Stated Complaint: SEE CHEIF COMPLAINT Time Seen by MD: 14:23 Primary Medical Doctor: Marcelino DEVINE History of Present Illness Initial Comments This 49-year-old female with a very complicated medical history including and pancreatomy, penectomy, severe protein calorie malnutrition and tube feeding along with type 2 diabetes, upper extremity DVT. Is also dependent on Suboxone. Was recently seen at [facility] for evaluation of G-tube complications. Khleo consulted to see the patient and potentially place a larger gauge or diameter G-tube. However the patient states that she does not see I with Dr. Castillo " Patient states she has worms in her G-tube however they are not visualized currently. Also has a PICC line for TPN and PPN which she is requesting to have removed. According to hospital records on [facility] she is also attempting to taking nutrition orally and being noncompliant with the NPO status Medication Reconciliation Allergies: Coded Allergies: morphine (Verified Allergy, Unknown, itching, 04/10/25) azithromycin (Verified Adverse Reaction, Intermediate, VOMITING, 04/10/25) Scheduled Apixaban (Eliquis), 1 TAB PO Q12H, (Reported) Buprenorphine Hcl (Buprenorphine Hcl), 1 TAB SL TID, (Reported) Carbamazepine (Tegretol Xr), 1 TAB PO TID, (Reported) Fluoxetine Hcl (Fluoxetine Hcl), 1 CAP PO DAILY, (Reported) Insulin Glargine,Hum.rec.anlog (Basaglar Kwikpen U-100), 11 UNITS SQ DAILY, (Reported) Lipase/Protease/Amylase (Clovis Pittman 36,000 Units Capsule), 1 CAP PO DAILY, (Reported) Pantoprazole Sodium (Pantoprazole Sodium), 1 TAB PO BID, (Reported) Sucralfate (Sucralfate), 1 TAB JT QID, (Reported) Scheduled PRN Diphenhydramine HCl (Benadryl Allergy), 1 TAB PO TID PRN for allergies, (Reported) Metoclopramide Hcl* (Metoclopramide Hcl*), 1 TAB PO QID PRN for abdominal cramps , (Reported) ONDANSETRON ODT 4mg tablet (Ondansetron Odt), 1 TAB PO Q6H PRN PRN for nausea/vomiting Oxycodone Hcl (Oxycodone Hcl), 1 TAB PO Q6H PRN for severe pain (7-10), (Reported) Past Medical History Past Medical History: Migraine, Seizures, Asthma, Peptic Ulcer Disease, Diabetes, Chronic Back Pain, Extremity Fracture, Depression Past Surgical History: cholecystectomy, hysterectomy, other Other Past Surgical History: Pancreatectomy, Islet pancreatic cell transplant, Whipple, splenectomy Patient History: Patient reports no known family medical history. Alcohol Use: None Drug Use: marijuana Lives with: S/O Lives In: Home Occupation: unemployed Review of Systems All Other Systems at this time: Reviewed and Negative ROS As stated above in the HPI, otherwise all systems are reviewed and negative. Physical Exam Physical Exam Vital Signs: Temperature: 97.5, Source: Temporal, Heart Rate: 82, Respiratory Rate: 18, BP: 130/86, Pulse Oximetry: 99, Weight: 43.800 Oxygen Flow Rate: 0 Physical Exam General: Alert, ill-appearing Respiratory: Lungs clear, no respiratory distress. Chest: No accessory muscle use. Decline in place no signs of erythema or drainage Cardiovascular: Regular rate and rhythm, no murmurs. Gastrointestinal: Soft, nontender, nondistended. Bowels sounds present. G-tube in place appears to be intact based on fluid collected, ostomy does not appear inflamed no signs of erythema Neurologic: Oriented x4. Psychiatric: Normal mood and affect. Skin: Normal color, warm and dry. No edema, no ecchymosis. Progress Results/Orders Results/Orders Vital Signs 04/10/25 13:20 Temp 97.5 Pulse 82 Resp 18 B/P (MAP) 130/86 Pulse Ox 99 O2 Flow Rate 0 Medical Decision Making Findings Enter great deal of time with this patient and I offered to request laboratory values to make sure her potassium is not abnormal. I explained to her that what she really needs is consultation with a surgeon. I advised her to establish care at one of the local clinics to obtain a referral by another surgeon if Dr. Coronado is not an option. He stated that she would rather just leave if what she needs to do his establish care for further evaluation. Departure Disposition: HOME / SELF CARE / HOMELESS Impression: Primary Impression: Protein malnutrition Additional Impressions: Uses feeding tube On total parenteral nutrition (TPN) Condition: Stable Discharge Instructions: How to Care for a Feeding Tube, [id number] Additional Instructions: As discussed please establish care with a local clinics in order to obtain referral to go see a surgeon who can assist you with your G tube complaints Referrals: NO PRIMARY CARE PROVIDER (PCP) Education Educated: Patient Educated regarding: diagnosis Signature Scribe Signature: t Attestation: Scribed for Kobi Carpenter Remedial Project Manager by Kobi Ambriz NP . 04/10/25 15:17 KOBI CARPENTER NP Apr 10, 2025 15:16
[2025-04-10 15:29] VITALS: TEMP 97.5
[2025-04-10 15:34] LABS: LEUKOCYTE ESTERASE ,URINE NEGATIVE (Neg); NITRITES, URINE NEGATIVE (Neg); OCCULT BLOOD,URINE NEGATIVE (Neg)
[2025-04-10 15:36] LABS: UA COLLECTION TYPE CLN CATCH MIDSTREAM
[2025-04-10 15:37] LABS: URINE HCG NEGATIVE (NEG)
== END 2025-04-10 15:45 | disposition home or self-care (01) ==
LOC: ER 13:16
DX: E46 Unspecified protein-calorie malnutrition (principal); J45.909 Unspecified asthma, uncomplicated; F32.A Depression, unspecified; F12.90 Cannabis use, unspecified, uncomplicated; G43.909 Migraine, unspecified, not intractable, without status migrainosus; E11.9 Type 2 diabetes mellitus without complications; G89.29 Other chronic pain; Z86.718 Personal history of other venous thrombosis and embolism; Z87.11 Personal history of peptic ulcer disease; Z88.5 Allergy status to narcotic agent; Z88.1 Allergy status to other antibiotic agents; Z90.710 Acquired absence of both cervix and uterus; Z90.49 Acquired absence of other specified parts of digestive tract; Z90.411 Acquired partial absence of pancreas; Z90.81 Acquired absence of spleen; Z56.0 Unemployment, unspecified; Z79.899 Other long term (current) drug therapy
CPT/HCPCS: 81003; 81025; 99283

== ENCOUNTER 2025-05-13 15:11 | Inpatient (IN) | payer MEDICARE, MEDICAID ==
[~2025-05-13] VITALS: Ht 165.1 cm; Wt 39.3 kg
[2025-05-13 16:24] LABS: MEAN PLATELET VOLUME 7.2 FL (7.4-10.4); RED CELL DISTRIBUTION WIDTH 22.1 % (11.5-14.5)
[2025-05-13] MEDS: levetiracetam-NACL1000mg/100ml 100 ML IV SCH (16:25)
[2025-05-13] MEDS: levetiracetam-NACL1000mg/100ml 100 ML IV ONE (16:32)
[2025-05-13 16:35] LABS: CREATININE 0.77 MG/DL (0.40-0.90); TOTAL CARBON DIOXIDE 34.3 MMOL/L (24-32); eCRCL 51 ML/MIN; eGFR 80 ML/MIN
[2025-05-13] MEDS: normal saline 1000ml 1,000 ML IV ONE ×2 (16:45→21:58)
[2025-05-13] MEDS ORDERED: HYDROmorphone inj. 0.5 MG/0.5 ML DISP.SYRIN IV ONE (16:50)
[2025-05-13] MEDS ORDERED: potassium Cl 20mEq/100mL bag 100 ML IV SCH (17:15)
[2025-05-13] MEDS: ondansetron/PF 4mg/2ml inj IV ONE (17:18)
[2025-05-13] MEDS: potassium CL 10mEq/100ml bag 100 ML IV SCH (17:33)
[2025-05-13 17:40] LABS: PLATELET ESTIMATE INCREASED
[2025-05-13 17:50] LABS: INFLUENZA TYPE A ANTIGEN RAPID NEGATIVE (Negative); INFLUENZA TYPE B ANTIGEN RAPID NEGATIVE (Negative)
--- NOTE | 2025-05-13 18:20 | Physician Documentation ---
History of Present Illness ~ Chief Complaint: Seizure Stated Complaint: SZ Time Seen by MD: 15:33 Primary Medical Doctor: Marcelino DEVINE Mode of Arrival: EMS, Stretcher HPI Patient is a 49-year-old chronically ill female that presents to the emergency department via ambulance. Patient was found down at her home after having a seizure and a postictal state. It is reported that this patient has a history of epilepsy. Patient also has a history significant for pancreatitis and removal of her pancreas secondary to pancreatitis. Patient is severely cachectic receives TPN through her port and it is generally unwell looking. Vital signs are currently stable with a blood pressure mildly hypertensive. Patient reports that she has been vomiting for multiple days and has been unable to keep down any of her medications. Patient reports he has had fevers she has not taken her temperature but reports feeling feverish with chills. Patient reports abdominal pain accompanied by the vomiting. Reports overall muscle and body aches at this time. Medication Reconciliation Allergies: Coded Allergies: morphine (Verified Allergy, Unknown, itching, 04/10/25) azithromycin (Verified Adverse Reaction, Intermediate, VOMITING, 04/10/25) Scheduled Apixaban (Eliquis), 1 TAB PO Q12H, (Reported) Buprenorphine Hcl (Buprenorphine Hcl), 1 TAB SL TID, (Reported) Carbamazepine (Tegretol Xr), 1 TAB PO TID, (Reported) Fluoxetine Hcl (Fluoxetine Hcl), 1 CAP PO DAILY, (Reported) Insulin Glargine,Hum.rec.anlog (Basaglar Kwikpen U-100), 11 UNITS SQ DAILY, (Reported) Lipase/Protease/Amylase (Creon Dr 36,000 Units Capsule), 1 CAP PO DAILY, (Report ed) Pantoprazole Sodium (Pantoprazole Sodium), 1 TAB PO BID, (Reported) Sucralfate (Sucralfate), 1 TAB JT QID, (Reported) Scheduled PRN Diphenhydramine HCl (Benadryl Allergy), 1 TAB PO TID PRN for allergies, (Reported) Metoclopramide Hcl* (Metoclopramide Hcl*), 1 TAB PO QID PRN for abdominal cramps, (Reported) ONDANSETRON ODT 4mg tablet (Ondansetron Odt), 1 TAB PO Q6H PRN PRN for nausea/vomiting Oxycodone Hcl (Oxycodone Hcl), 1 TAB PO Q6H PRN for severe pain (7-10), (Reported) Past Medical History Past Medical History: Migraine, Seizures, Asthma, Peptic Ulcer Disease, Diabetes, Chronic Back Pain, Extremity Fracture, Depression Past Surgical History: cholecystectomy, hysterectomy, other Other Past Surgical History: Pancreatectomy, Islet pancreatic cell transplant, Whipple, splenectomy Patient History: Patient reports no known family medical history. Alcohol Use: None Drug Use: marijuana Lives with: S/O Lives In: Home Occupation: unemployed Review of Systems ROS As stated above in the HPI, otherwise all systems are reviewed and negative. Physical Exam Vital Signs: Temperature: 98.9, Source: Oral, Heart Rate: 79, Respiratory Rate: 12, BP: 154/94, Pulse Oximetry: 98, Weight: 36.000 Oxygen Flow Rate: 0 Physical Exam VITALS: Reviewed and as above. GENERAL: Alert, appearing HEENT: Normocephalic, atraumatic, PERRL, EOMI, dry mucosa, no erythema RESPIRATORY: Lungs clear, normal breath sounds, no respiratory distress. CHEST: No accessory muscle use, no retractions CV: Regular rate, rhythm, no edema, no murmur, No: JVD GI: Soft, mildly tender with palpation to the lower abdomen bilaterally, bowels sounds absent, no rebound, guarding, or rigidity BACK: No CVA tenderness, or swelling MUSCULOSKELETAL No deformities, no edema, profoundly cachectic, pain with examination and range of motion noted. SKIN: Warm and dry, no rash, report noted in upper right chest no erythema or concern for infection noted at this time. NEURO: Oriented x4. PSYCH: Normal mood and affect, no agitation Progress Results/Orders Results/Orders Orders - DEBBI MACHADO RN PHYSICIAN OFFICE Urinalysis, Cult If Indicated (05/13/25 15:42) Hcg, Ur Ql (05/13/25 15:42) Culture Blood (05/13/25 15:42) Levetiracetam-[id number]/100ml (Levetira (05/13/25 20:00) Covid19 Binax Poc Result Entry (05/13/25 16:35) Chest,Single View (05/13/25 18:27) Potassium Cl 10meq/100ml Bag (Potassium (05/13/25 17:25) Ct Chest Abdomen Pelvis (05/13/25 19:01) Completed Orders - DEBBI MACHADO RN PHYSICIAN OFFICE Cbc/Diff (05/13/25 15:42) CMP (05/13/25 15:42) LA (05/13/25 15:42) Lipase (05/13/25 15:42) Levetiracetam-[id number]/100ml (Levetira (05/13/25 16:25) Influenza Type A&B Rapid Test (05/13/25 16:35) Normal Saline 1000ml (0.9% Sodium Chlori (05/13/25 16:35) Ondansetron Inj. (Zofran 4mg/2ml Vial) (05/13/25 17:05) Hydromorphone 1 Mg/Ml/Pf (Dilaudid Inj.) (05/13/25 17:10) Chest,Single View (05/13/25 18:27) Ct Chest Abdomen Pelvis (05/13/25 19:01) Hydromorphone 1 Mg/Ml/Pf (Dilaudid Inj.) (05/13/25 18:40) Iohexol 300mg/Ml 100ml Inj. (Omnipaque-3 (05/13/25 18:46) Normal Saline 1000ml (0.9% Sodium Chlori (05/13/25 19:15) Medications Received in ER Medications (Trade) Dose Ordered Sig/Kiko Route PRN Reason Start Time Stop Time Status Last Admin Dose Admin Levetiracetam 100 ml @ 400 mls/hr ONCE ONCE IV 05/13/25 16:25 05/13/25 16:39 DC 05/13/25 16:32 400 MLS/HR Sodium Chloride 1,000 ml @ 1,000 mls/hr ONCE ONCE IV 05/13/25 16:35 05/13/25 17:34 DC 05/13/25 16:45 1,000 MLS/HR (Zofran 4mg/2ml vial) 4 mg ONCE ONCE IV 05/13/25 17:05 05/13/25 17:06 DC 05/13/25 17:18 4 MG (Dilaudid inj.) 0.5 mg ONCE ONCE IV 05/13/25 17:10 05/13/25 17:11 DC 05/13/25 17:19 0.5 MG Potassium Chloride 100 ml @ 100 mls/hr Q1H IV 05/13/25 17:25 05/13/25 19:24 05/13/25 17:33 100 MLS/HR Vital Signs 05/13/25 05/13/25 05/13/25 05/13/25 15:24 16:37 16:37 17:19 Temp 98.9 Pulse 86 87 Resp 20 12 16 16 B/P (MAP) 134/92 169/108 (128) Pulse Ox 97 98 O2 Flow Rate 0 0 05/13/25 17:43 Temp 98.9 Pulse 79 Resp 12 B/P (MAP) 154/94 (114) Pulse Ox 98 O2 Flow Rate 0 Laboratory Tests Test 05/13/25 16:12 05/13/25 17:25 White Blood Count 15.4 H Red Blood Count 3.78 L Hemoglobin 9.4 L Hematocrit 28.8 L Mean Corpuscular Volume 76.0 L Mean Corpuscular Hemoglobin 25.0 L Mean Corpuscular Hemoglobin Concent 32.8 L Red Cell Distribution Width 22.1 H Platelet Count 481 H Mean Platelet Volume 7.2 L Neutrophils (%) (Auto) 85.8 H Lymphocytes (%) (Auto) 2.6 L Monocytes (%) (Auto) 11.2 Eosinophils (%) (Auto) 0.1 Basophils (%) (Auto) 0.3 Neutrophils # (Auto) 13.3 H Lymphocytes # (Auto) 0.4 L Monocytes # (Auto) 1.7 H Eosinophils # (Auto) 0.0 Basophils # (Auto) 0.0 CBC Comment Platelet Estimate Increased Red Blood Cell Morphology Perf Hypochromasia 1+ Basophilic Stippling Anisocytosis 3+ Microcytosis 1+ Target Cells Few Acanthocytes 1+ Schistocytes Few Sodium Level 135 Potassium Level 3.0 *L Chloride Level 90 L Carbon Dioxide Level 34.3 H Anion Gap 11 Blood Urea Nitrogen 7 Creatinine 0.77 Estimated GFR/1.73 m2 80 BUN/Creatinine Ratio 9.1 L Glucose Level 381 H Lactic Acid Level 1.3 Calcium Level 8.0 L Total Bilirubin 0.5 Aspartate Amino Transf (AST/SGOT) 12 Alanine Aminotransferase (ALT/SGPT) 6 L Alkaline Phosphatase 142 H Total Protein 6.8 Albumin 3.0 L Globulin 3.8 Albumin/Globulin Ratio 0.8 L Lipase 8 L Chemistry Comments Influenza Type A Antigen Negative Influenza Type B Antigen Negative SARS-CoV-2 Antigen (Rapid) Negative Microbiology Date/Time Source Procedure Growth Status 05/13/25 16:12 Blood Hand Left Blood Culture - Preliminary NEGATIVE (LESS THAN 24 HOURS) Resulted Medical Decision Making Additional information obtaine: other Findings 49-year-old female admitted after postictal state and seizure. History & Presentation: Patient with known epilepsy and chronic pancreatitis (post-pancreatectomy, TPN- dependent, cachectic) presented after a witnessed seizure, found postictal. She reports 3 days of fever, chills, nausea, vomiting, abdominal pain, and inability to take levetiracetam. She is alert and verbal on exam. Initial ED Findings: Leukocytosis Hypokalemia (potassium repleted with 20 mEq IV; ongoing monitoring planned) Fever Persistent nausea/vomiting and abdominal pain Medical Decision-Making: Seizure Etiology: Most likely provoked by missed levetiracetam, compounded by metabolic derangements (malnutrition, hypokalemia). Seizure Workup: Clinical diagnosis supported by history and postictal state. Laboratory evaluation (CBC, electrolytes, renal/liver function, glucose) and imaging (CT/MRI brain if new deficits or persistent altered mental status) are indicated. Antiseizure Therapy: Resume levetiracetam as soon as feasible, considering IV route if oral not tolerated. Electrolyte Management: Continue potassium repletion and monitor for ongoing losses, especially given vomiting and TPN. Infection/Sepsis Evaluation: Fever, leukocytosis, and abdominal pain raise concern for intra-abdominal infection (e.g., catheter-related bloodstream infection, intra-abdominal abscess, or enterocolitis). Blood cultures, urine cultures, and abdominal imaging (CT abdomen/pelvis) are warranted. TPN/Port Management: High risk for catheter-related infection and metabolic complications. Monitor for bloodstream infection, thrombosis, and metabolic oscar angements. Malnutrition: Chronic cachexia and TPN dependence require ongoing nutritional assessment and monitoring for micronutrient deficiencies. Multidisciplinary nutrition support is essential. Abdominal Pain Differential: Consider infectious etiologies (abscess, enterocolitis, C. difficile), pancreatitis complications, and port-related infection. CT imaging is preferred for source identification. Other Considerations: Evaluate for other acute causes of seizure (hypoglycemia, uremia, drug intoxication) as indicated. Plan: Admit for monitoring and management of seizure, infection, and nutritional status. Resume levetiracetam (IV if unable to tolerate oral). Continue potassium repletion and monitor electrolytes. Obtain blood/urine cultures, abdominal CT, and port evaluation. Consult nutrition and infectious disease. Monitor for complications of TPN and port. Supportive care for nausea/vomiting and pain. Risk Assessment: Patient is at high risk for recurrent seizures, infection (including port- related), and metabolic complications due to underlying chronic illness and malnutrition. Differential Dx:Considerations: Include: Hyperventilation, Psychogenic seizure, Due to alcohol withdrawl, Anticonvulsant withdrawl, Due to closed head injury, Due to CVA/TIA, Due to drug ingestion, Due to eclampsia, Due to hypocalcemia, Due to hypoglycemia, Due to hyponatremia, Due to hypoxemia, Idiopathic, Due to mass lesion, Due to meningitis, Syncope, Encephalopathy, Epilepsy-break through, Epilepsy-status, Other Departure Disposition: 09 ADMITTED INPATIENT Admitted to Inpatient Unit: yes, to hospitalist Admission Level of Care: Med/Surg with Tele Impression: Primary Impression: Leukocytosis Additional Impressions: Hypokalemia Cachexia Severe malnutrition Condition: Stable Referrals: NO PRIMARY CARE PROVIDER (PCP) Education Educated: Patient Educated regarding: diagnosis, treatment, prognosis, other DEBBI MACHADO May 13, 2025 18:20
--- NOTE | 2025-05-13 18:45 | RADIOLOGY REPORT ---
CHEST RADIOGRAPH REASON FOR EXAM: Concern for infection COMPARISON: DI CHEST,SINGLE VIEW on DOS: 08/06/24, DI CHEST,SINGLE VIEW on DOS: 07/11/24, DI CHEST,SINGLE VIEW on DOS: 06/30/24, DI CHEST,SINGLE VIEW on DOS: 01/23/24, DI CHEST,SINGLE VIEW on DOS: 12/21/23 TECHNIQUE: One view of the chest is provided FINDINGS: The cardiomediastinal silhouette is within normal limits for size. The lungs are hyperinflated. There is a right chest tunneled catheter with the tip projecting over the area of the lower SVC. No focal airspace disease is identified. There is no significant pleural effusion. There is no pne umothorax. No acute osseous abnormality is identified. Numerous surgical clips project over the epigastric region. IMPRESSION: Hyperinflated lungs suggestive of emphysema. No focal airspace disease identified.
[2025-05-13] MEDS ORDERED: iohexol 300mg/ml 100ml inj. ONE (18:46)
[2025-05-13] MEDS: normal saline 1000ML IV soln IVB ONE (19:22)
--- NOTE | 2025-05-13 19:40 | RADIOLOGY REPORT ---
Procedure: CT CT CHEST ABDOMEN PELVIS W/ IV CONTRAST 05/13/2025 06:50 PM Indication: Abdominal pain nausea vomiting leukocytosis Comparison Study: CT CT ABDOMEN PELVIS W/ IV CONTRAST on DOS: 07/11/24, CT CT ABDOMEN PELVIS on DOS: 01/23/24, CT CT ABDOMEN PELVIS on DOS: 01/03/24 Technique: Axial images were obtained and reformatted in coronal and sagittal planes. All CT scans at this medical facility are performed using dose modulation techniques as appropriate to a performed exam including the following: Automated exposure control was utilized; adjustment of the MA and/or KV according to patient size; and use of iterative reconstruction technique. CT Dose: CTDI volume is 6.98 mGy. Dose-length product is 568.76 mGy*cm FINDINGS: Chest: Thyroid gland is unremarkable. Heart size is within normal limits. No evidence of aortic aneurysm or dissection. Pulmonary embolism. Mild atherosclerotic calcification of the aorta. No significant mediastinal lymphadenopathy. 4 mm left medial lower lobe solid nodule. Bibasilar linear atelectasis. Mild upper lobe predominant emphysematous changes. No pneumothorax, pleural effusion or focal airspace consolidation. Mild body wall edema. No evidence of acute osseous abnormalities. Abdomen and pelvis: Surgical clip is noted within the right hepatic lobe. Portal vein stent is noted extending into the SMA. Liver, and adrenal glands are unremarkable. Limited evaluation of the pancreas. The spleen is not well-visualized surgical clips noted over the left upper abdominal quadrant and 1.7 x 1.1 cm soft tissue density over the left upper abdominal quadrant which may represent residual spleen. Kidneys are unremarkable. Moderate distention of the urinary bladder which is otherwise unremarkable. Uterus is not well-visualized. Questionable hysterectomy. Gastric wall thickening. Wall thickening of fluid-filled nondistended small bowel loops. Postsurgical changes of small bowel. Appendix is not definitely visualized. Without visualization of the Appendix, can not exclude acute appendicitis. Limited evaluation of the large bowel. Moderate to large Amount of fecal material within the sigmoid and rectum Diffuse mesenteric edema. No evidence of intraperitoneal free air. No evidence of aortic aneurysm or dissection. Limited evaluation for lymphadenopathy. Moderate body wall edema. No evidence of acute osseous abnormalities IMPRESSION: No evidence of acute intrathoracic abnormalities. Mild upper lobe predominant emphysematous changes. Gastroenteritis. Postsurgical changes of the bowel loops. Limited evaluation of the Large bowel with moderate to large Amount of fecal material within the sigmoid and rectum. Diffuse mesenteric edema. Diffuse anasarca.
[2025-05-13] MEDS ORDERED: metoclopramide 5 mg/ml inj IV PRN (20:25)
[2025-05-13] MEDS ORDERED: magnesium sulf-water 4G/100mL 100 ML IV PRN (20:25)
[2025-05-13] MEDS ORDERED: magnesium sulf-water 2g/50mL 50 ML IV PRN (20:25)
[2025-05-13] MEDS ORDERED: magnesium hydroxide 30ml (MOM) UD suspension PO PRN (20:25)
[2025-05-13] MEDS ORDERED: magnesium Cl slow-release 64mg tablet PO PRN (20:25)
[2025-05-13] MEDS ORDERED: potassium Cl 20 mEq SR tablet PO PRN ×2 (20:25)
[2025-05-13] MEDS ORDERED: mag hydrox/Alum hydrox/simeth 30ml oral suspension PO PRN (20:25)
[2025-05-13] MEDS ORDERED: mineral oil 133ml enema RC PRN (20:50)
[2025-05-13 20:59] LABS: PHOSPHORUS 2.9 MG/DL (2.3-4.5); PRO BRAIN NATRIURETIC PEPTIDE 868 PG/ML (0-125)
[2025-05-13 21:09] LABS: APTT 26 SECONDS (22-32); INR 1.3 INR
[2025-05-13 21:43] LABS: LEUKOCYTE ESTERASE ,URINE NEGATIVE (Neg); NITRITES, URINE NEGATIVE (Neg); OCCULT BLOOD,URINE NEGATIVE (Neg)
[2025-05-13 21:53] LABS: UA COLLECTION TYPE CLN CATCH MIDSTREAM
[2025-05-13 21:54] LABS: MUCUS STRANDS FEW /LPF (Neg); SQUAMOUS EPITHELIAL CELL,UR FEW /LPF (FEW)
--- NOTE | 2025-05-13 21:54 | HISTORY AND PHYSICAL-Residence ---
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 As per caregiver(boyfriend), At home patient was found down after having seizures and and postictal confusion. Patient does not know how long the seizure was lasted for. Patient reports she has seizure disorder and her last episode was this year in July 2024. She is taking carbamazepine. On arrival to ED patient is alert, oriented to time place and person with no postictal confusion. Patient reports that she has chronic abdominal pain but from the last 2 days she has inreased upper abdomen pain gradually worsened and diffuse, cramping type with severity of 7/10 in intensity radiating to back of the abdomen associated with nausea, vomiting and mild fever, chills. Patient is unable to keep anything down(food,water and medication) due to multiple episodes of vomiting. She also reports generalized weakness in the muscles and fatigue. Patient denies blood in the vomitus, dark stools, abdominal distention, chest pain, lightheadedness, swelling of legs. She is on Eliquis for past history of blood clots in the PICC line and Groshong catheter. Patient is severely cachectic and Groshong catheter is in right upper chest and plan to start TPN PCP: Dr. Mccormick at [facility] Dr. Stanley, the laborer She is waiting for appointment with the retail associate manager bilingual Dr Cartagena in [facility] Allergies: Coded Allergies: morphine (Verified Allergy, Unknown, itching, 04/10/25) azithromycin (Verified Adverse Reaction, Intermediate, VOMITING, 04/10/25) Home Medications Home Medications Active Ondansetron Odt (Ondansetron HCl) 4 Mg Tab.rapdis 1 Tab PO Q6H PRN PRN 4 Days Reported Pantoprazole Sodium 40 Mg Tablet.dr 1 Tab PO BID Buprenorphine Hcl 8 Mg Tab.subl 1 Tab SL TID Sucralfate 1 Gram Tablet 1 Tab JT QID Creon Dr 36,000 Units Capsule (Lipase/Protease/Amylase) 36K-114K Capsule. 1 Cap PO DAILY Basaglar Kwikpen U-100 (Insulin Glargine,Hum.rec.anlog) 100 Unit/Ml (3 Ml) Insuln.pen 11 Units SQ DAILY Eliquis (Apixaban) 5 Mg Tablet 1 Tab PO Q12H Fluoxetine Hcl 40 Mg Capsule 1 Cap PO DAILY Benadryl Allergy (Diphenhydramine HCl) 25 Mg Tablet 1 Tab PO TID PRN Tegretol Xr (Carbamazepine) 200 Mg Tab.er.12h 1 Tab PO TID Metoclopramide Hcl* (Metoclopramide HCl) 10 Mg Tablet 1 Tab PO QID PRN Oxycodone Hcl 10 Mg Tablet 1 Tab PO Q6H PRN Past Medical History Past Medical History History of pancreatic divisum status post Whipple's with splenectomy and cholecystectomy with sparing of pylorus DM secondary to pancreatectomy Status post J-tube,followed by G-tube removed 2 weeks ago duodenal ulcer Chronic pain syndrome Status post islet stem cell transplant Epilepsy Multiple blood clots in her picc line and Groshong catheter, and that is the reason she is on Eliquis History of Pseudomonas aeruginosa bacteremia of Groshong catheter Past Surgical History Surgical History Comment Status post Whipple's with cholecystectomy and splenectomy Family History Family History: Patient reports no known family medical history. Past Social History Social History Comment Smokes about one and half pack of cigarette a day, more than 20 pack years Denies alcohol intake Smokes marijuana frequently Lives in her home with her professor of finance (boyfriend) Independent for ADLs Smoking: Cigarettes Alcohol Use: None Drug Use: Marijuana Lives with: S/O Lives In: Home Occupation: unemployed ROS ROS Constitutional: Reports fever & chills, no dizziness, weight gain or loss, night sweats Eyes: No pain, erythema, discharge, blurring of vision ENT: No sore throat, epistaxis, tinnitus Cardiovascular:No chest pain, palpitations, syncope, lower extremity edema, paroxysmal nocturnal dyspnea Respiratory: No Shortness of breath and cough, No hemoptysis. Gastrointestinal: Reports Abdominal pain, vomiting,nausea and no melena. Normal appetite. No constipation,diarrhea, hematemesis, Musculoskeletal: No swelling or edema of extremities. Integumentary: No change in skin, hair, nails. No swelling, bruising, abrasions Neurologic: No weakness,No headache, neck pain, numbness or tingling of the extremities, Psychiatric: No delusions, depression, loss of interest in normal activity or change in sleep pattern, hallucinations, suicidal ideations Endocrine: Reports generalized muscle aches and fatigue, no weakness. polydipsia, polyuria, change in appetite, heat or cold intolerance, sweating, dry skin Hematological: No bleeding, petechiae, bruising Allergies: No asthma or urticaria Exam Vitals: Vital Signs Date Time Temp Pulse Resp B/P (MAP) Pulse Ox O2 Delivery O2 Flow Rate FiO2 05/13/25 21:09 15 05/13/25 19:28 84 159/95 (116) 94 0 05/13/25 17:43 98.9 General: Chronically ill, severely cachectic, malnourished, BMI of 13.2, thin and fragile, in mild distress Awake , alert and oriented to time,place, person, HEENT: Atraumatic, normocephalic, PERRLA, EOMI, anicteric sclera ; pink conjunctiva, moist mucos membranes Neck: Trachea midline. Supple, normal range of motion, no JVD, no lymphadenopathy Chest and Respiratory: Equal breath sounds bilaterally, no tachypnea, wheezing, ronchi,rubs .Chest wall is symmetric and without deformity. Cardiac: S1, S2 heard,Regular rate and rhythm, no murmurs ,no gallops, no rubs. Abdomen: Soft, moderate diffuse tenderness, No guarding or rigidity, Bateman's sign negative. normal bowel sounds x4 quadrant, no hepatosplenomegaly, large vertical scar in the abdomen MSK: Range of motion of all extremities are normal. There is no joint pain or joint swelling or joint erythema. There is no muscle pain or tenderness or swelling. Extremities: warm, well-perfused, No cyanosis, clubbing, 2+ pulses felt Neurological: Mental status exam: alert and consciousness, orientation, memory, speech No focal deficit, gross cranial nerve exam- normal Skin: Warm and dry Psychiatry: Affect and mood are normal Diagnostic Data Last Recorded Lab Results: 05/13/25 1612 05/13/25 1612 Diagnostic Data: Laboratory Tests Test 05/13/25 20:45 Prothrombin Time 13.4 SECONDS (9.0-12.0) H INR International Normalized Ratio 1.3 INR Activated Partial Thromboplast Time 26 SECONDS (22-32) D-Dimer 0.64 MG/L FEU (0-0.50) H D-Dimer Comment Coagulation Comments Counseling Services Smoking & Tobacco Cessation: 3-10 Minutes Advance Care Planning Advanced Care plannin - 30 Minutes (I spent a total of 17 minutes on reviewing various resuscitative measures/ACP with the patient at the time of admission. The patient has decided on full code status) Additional Plan Seizure disorder IV levetiracetam was given in the ER continue home med carbamazepine 200 mg b.i.d. follow up on carbamazepine levels Follow up on UDS Hypokalemia Potassium of 3.0 Replacement per protocol Gastroenteritis CT abd/pelvis: Gastric wall thickening. Wall thickening of fluid-filled nondistended small bowel loops. Postsurgical changes of small bowel. Gastroenteritis. Diffuse mesenteric edema. Diffuse anasarca. Albumin is 3.0 CBC showed elevated white count - 15.4, Lactate and procalcitonin are in normal limits Follow up on blood culture & stool studies IV ciprofloxacin 400 mg and IV Flagyl 500 mL q.12h Received 1 L of IV NS bolus and started on IV NS 100 mL/hr Patient has splenectomy, patient might need ID consult for the antibiotics, consult in the A.M Consult surgery in the morning in view of Gastric wall thickening. Wall thickening of fluid-filled nondistended small bowel loops. Diffuse mesenteric edema. Diffuse anasarca. Constipation Patient is unable to take oral medication CT abd shows Large bowel with moderate to large Amount of fecal material within the sigmoid and rectum. Mineral Oil edema daily prn Metabolic alkalosis 2/2 vomiting anion gap 11, bicarb 34, serum glucose 381 on presentation, A1c>12% IV Zofran for nausea/ vomiting PRN IV NS 100 mL/hr History of pancreatic divisum status post Whipple's Status post islet cell transplantation Diabetes mellitus anion gap 11, bicarb 34, serum glucose 381 on presentation, A1c>12% -she takes 11 units of Lantus at home -blood glucose in the ED was 400 and she received 8 units of subcu insulin -BMP does not look like she is having diabetic ketoacidosis -will monitor blood glucose, currently started on Lantus 10 units and low-dose supplemental insulin and if needed we will put her on insulin drip -Hyperglycemia/hypoglycemia protocol Failure to thrive Severe malnutrition BMI 13.2 Patient has Groshong catheter, Nutrition consult in the A.M and started on TPN History of multiple blood clots in the Groshong catheter, PICC line -she was on Eliquis at home Chronic pain syndrome patient said morphine does not work for her and only Dilaudid works for her patient has pain medication seeking behavior particularly for Dilaudid started on IV Dilaudid 1 mg q.4h History of duodenal ulcer Continue Protonix 40 mg IV Q24H Chronic COPD, not in exacerbation CT chest shows Mild upper lobe predominant emphysematous changes. Recommended outpatient management Microcytic hypochromic anemia H&H are 9.4/28.8, MCV 76, MCHC 32.8 H&H are stable Follow up on FOBT Med rec pending Code status: Full code DVT prophylaxis :Eliquis GI prophylaxis: Protonix Nutrition: Nutrition consult in the morning and start on TPN Physical therapy: yes Line/tube: PIV/Groshong catheter Analgesia/sedation: Dilaudid 1 mg q.4H Prognosis: Guarded Disposition:Continue care in PCU, consult ID and surgery in the A.M Resident attestation The above note has been reviewed and supervised by a senior resident PGY2/PGY3 Patient was seen, examined and discussed with the attending physician Shahnaz Holguin MD Internal Medicine Resident, PGY 1 Patient was seen and evaluated using HIPPA complaint AV device Agree with plan as discussed with the resident Insulin drip as she cant tolerate PO for now Petr Escamilla MD Date of Service: May 13, 2025 Billing Provider: PETR ESCAMILLA MD, SUNIL KUMAR, RES May 13, 2025 21:54 PETR ESCAMILLA MD May 14, 2025 02:29
[2025-05-13 21:55] LABS: URINE HCG NEGATIVE (NEG)
[2025-05-13] MEDS: ciprofloxacin lact 400MG/200ML 200 ML IV SCH (21:58)
[2025-05-13] MEDS ORDERED: metroNIDAZOLE-Flagyl 500mg/NS 100 ML IV SCH (22:00)
[2025-05-13 22:14] LABS: URINE AMPHETAMINE SCREEN NEGATIVE (Neg); URINE BARBITUATE SCREEN NEGATIVE (Neg); URINE BENZODIAZEPINES SCREEN NEGATIVE (Neg); URINE CANNABINOID SCREEN POSITIVE (Neg); URINE COCAINE SCREEN NEGATIVE (Neg); URINE METHADONE SCREEN NEGATIVE (Neg); URINE OPIATE SCREEN NEGATIVE (Neg); URINE PHENCYCLIDINE SCREEN NEGATIVE (Neg)
[2025-05-13] MEDS: polyethylene glycol 3350 17gm powd pack PO SCH (22:15)
[2025-05-13] MEDS: docusate sod 100mg capsule PO SCH (22:16)
[2025-05-13] MEDS: insulin glargine (Lantus) pen - multi-dose SQ SCH (22:24)
[2025-05-13] MEDS: INSULIN LISPRO 100 UNIT/ML INSULN.PEN MULTI-DOSE SQ ONE (22:26)
[2025-05-13 23:00] VITALS: BP 134/85; PULSE 98; RESP 18; TEMP 97.8; O2SAT 96
[2025-05-13] MEDS: metroNIDAZOLE-Flagyl 500mg/NS 100 ML IV SCH (23:21)
[2025-05-13] MEDS: potassium Cl 40MEQ/1/2NS 520ml 520 ML IV ONE (23:27)
[2025-05-13] MEDS ORDERED: glucagon, human recombinant 1mg kit SUBCUT PRN (23:40)
[2025-05-13] MEDS ORDERED: DEXTROSE 15 GM of carb/4 tabs (each vial/BOTTLE has 4 tablets) PO PRN ×2 (23:40)
[2025-05-13] MEDS ORDERED: dextrose 50%-water 50ml dispensing syringe IV PRN ×2 (23:40)
[2025-05-13 23:45] VITALS: RESP 13
[2025-05-14] VITALS (11 sets, daily range): BP systolic 102–175; BP diastolic 61–98; PULSE 66–82; RESP 9–18; TEMP 97.3–98.6; O2SAT 96–100
[2025-05-14] MEDS: carBAMazepine Ext. Release 200 MG TAB.ER.12H PO SCH (00:46)
[2025-05-14] MEDS: ondansetron/PF 4mg/2ml inj IV PRN (01:59)
[2025-05-14] MEDS: normal saline 1000ml 1,000 ML IV SCH (05:38)
[2025-05-14 07:45] LABS: MEAN PLATELET VOLUME 7.8 FL (7.4-10.4); RED CELL DISTRIBUTION WIDTH 21.4 % (11.5-14.5)
[2025-05-14 07:59] LABS: CHOL/HDL RATIO 2.8 (0.00-4.99); CREATININE 0.56 MG/DL (0.40-0.90); LDL CHOLESTEROL 81 MG/DL (50-100); TOTAL CARBON DIOXIDE 25.9 MMOL/L (24-32); eCRCL 71 ML/MIN; eGFR > 90 ML/MIN
[2025-05-14] MEDS ORDERED: docusate sod 100mg capsule PO SCH (08:00)
[2025-05-14] MEDS: K and/or MAG REPLACEMENT MC SCH (08:00)
[2025-05-14] MEDS: INSULIN LISPRO 100 UNIT/ML INSULN.PEN MULTI-DOSE SQ SCH (08:38)
[2025-05-14 09:41] LABS: BANDS% (MANUAL) 1.0 % (0-10); LYMPHOCYTES % (MANUAL) 12.0 % (21-51); MONOCYTES % (MANUAL) 7.0 % (2-12); NEUTROPHILS % (MANUAL) 80.0 % (42-75); PLATELET ESTIMATE NORMAL
[2025-05-14] MEDS ORDERED: LIDOcaine 2% Viscous 15ml cup ONE (10:12)
[2025-05-14] MEDS ORDERED: MIDAZolam 1 MG/ML 5ML VIAL ONE ×2 (10:13→12:38)
[2025-05-14] MEDS ORDERED: fentaNYL/PF 50MCG/1 ML 2ML syringe ONE ×2 (10:13→12:38)
--- NOTE | 2025-05-14 11:32 | CONSULTATION REPORT - RESIDENT ---
Consult Providers to CC Resident Creating Document: YVETTE VU RES History of Present Illness Reason for Admit\Complaint: Seizures History of Present Illness This is a 49 yr old lady with a complicated pmh of pancreatic divisum causing chronic pancreatitis s/p whipple's with chronic pancreatic insuffeciency , s/p splenectomy is admitted in the hospital for her primary diagnosis of seizure and post ictal confusion. During her admission, she also complained of abd pain, since the last three days. 01/08, cramping, intermittent, associated with nausea and vomiting. Vomitus contained bile. No hematemesis or coffee ground vomitus. She had a PEG tube for feeding till 2 weeks ago. She has not been able to keep food down, solids or liquids. She also complains of constipation. Her last bowel movement was 3 days ago. During her work Ct scan revealed an incidental finding of Gastric wall thickening with moderate to large Amount of fecal material within the sigmoid and rectum. Allergies: Coded Allergies: morphine (Verified Allergy, Unknown, itching, 04/10/25) azithromycin (Verified Adverse Reaction, Intermediate, VOMITING, 04/10/25) Home Medications Home Medications Active Ondansetron Odt (Ondansetron HCl) 4 Mg Tab.rapdis 1 Tab PO Q6H PRN PRN 4 Days Reported Pantoprazole Sodium 40 Mg Tablet.dr 1 Tab PO BID Buprenorphine Hcl 8 Mg Tab.subl 1 Tab SL TID Sucralfate 1 Gram Tablet 1 Tab JT QID Creon 36,000 Units Capsule (Lipase/Protease/Amylase) 36K-114K Capsule. 1 Cap PO DAILY Basaglar Eric U-100 (Insulin Glargine,Hum.rec.anlog) 100 Unit/Ml (3 Ml) Insuln.pen 11 Units SQ DAILY Eliquis (Apixaban) 5 Mg Tablet 1 Tab PO Q12H Fluoxetine Hcl 40 Mg Capsule 1 Cap PO DAILY Benadryl Allergy (Diphenhydramine HCl) 25 Mg Tablet 1 Tab PO TID PRN Tegretol Xr (Carbamazepine) 200 Mg Tab.er.12h 1 Tab PO TID Metoclopramide Hcl* (Metoclopramide HCl) 10 Mg Tablet 1 Tab PO QID PRN Oxycodone Hcl 10 Mg Tablet 1 Tab PO Q6H PRN Past Medical History Past Medical History History of pancreatic divisum status post Whipple's with splenectomy and cholecystectomy with sparing of pylorus 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 Past Social History Social History Comment Constitutional: Reports fever & chills, no dizziness, weight gain or loss, night sweats Eyes: No pain, erythema, discharge, blurring of vision ENT: No sore throat, epistaxis, tinnitus Cardiovascular:No chest pain, palpitations, syncope, lower extremity edema, paroxysmal nocturnal dyspnea Respiratory: No Shortness of breath and cough, No hemoptysis. Gastrointestinal: Reports Abdominal pain, vomiting,nausea and no melena. Normal appetite. No constipation,diarrhea, hematemesis, Musculoskeletal: No swelling or edema of extremities. Integumentary: No change in skin, hair, nails. No swelling, bruising, abrasions Neurologic: No weakness,No headache, neck pain, numbness or tingling of the extremities, Psychiatric: No delusions, depression, loss of interest in normal activity or change in sleep pattern, hallucinations, suicidal ideations Endocrine: Reports generalized muscle aches and fatigue, no weakness. polydipsia, polyuria, change in appetite, heat or cold intolerance, sweating, dry skin Hematological: No bleeding, petechiae, bruising Allergies: No asthma or urticaria Exam Vitals: Vital Signs Date Time Temp Pulse Resp B/P (MAP) Pulse Ox O2 Delivery O2 Flow Rate FiO2 05/14/25 07:35 15 05/14/25 06:00 97.5 79 140/92 (108) 99 Room Air 05/13/25 22:26 0 General: Chronically ill, severely cachectic, malnourished, BMI of 13.2, thin and fragile, in mild distress Awake , alert and oriented to time,place, person, HEENT: Atraumatic, normocephalic, PERRLA, EOMI, anicteric sclera ; pink conjunctiva, moist mucos membranes Neck: Trachea midline. Supple, normal range of motion, no JVD, no lymphadenopathy Chest and Respiratory: Equal breath sounds bilaterally, no tachypnea, wheezing, ronchi,rubs .Chest wall is symmetric and without deformity. Cardiac: S1, S2 heard,Regular rate and rhythm, no murmurs ,no gallops, no rubs. Abdomen: Soft, mild tenderness on superficial palpation, No guarding or rigidity, Bateman's sign negative. normal bowel sounds x4 quadrant, no hepatosplenomegaly, large vertical scar in the abdomen MSK: Range of motion of all extremities are normal. There is no joint pain or joint swelling or joint erythema. There is no muscle pain or tenderness or swelling. Extremities: warm, well-perfused, No cyanosis, clubbing, 2+ pulses felt Neurological: Mental status exam: alert and consciousness, orientation, memory, speech No focal deficit, gross cranial nerve exam- normal Skin: Warm and dry Psychiatry: Affect and mood are normal Diagnostic Data Last Recorded Lab Results: 05/14/25 0638 05/14/25 0638 Diagnostic Data: Laboratory Tests Test 05/13/25 20:45 Prothrombin Time 13.4 SECONDS (9.0-12.0) H INR International Normalized Ratio 1.3 INR Activated Partial Thromboplast Time 26 SECONDS (22-32) D-Dimer 0.64 MG/L FEU (0-0.50) H D-Dimer Comment Coagulation Comments Additional Plan Assessment: This is a 49 yr old female with pancreatic divisum causing chronic pancreatitis s/p whipple's with chronic pancreatic insufficiency . GI was consulted in view of abd pain, nausea and vomiting and incidental CT finding of gastric wall thickening. Patient looks cachectic with failure to thrive, most likey from malabsoption from pancreatic insufficiency with a BMI of 13.2. She is on Creon, but still continues to have malabsorption. She was on TPN through PEG 2 weeks ago. She will need nutritional assessment. Plan: NPO, EGD today. Continue IV protonix 40 mg bid Director Medical Surgical consultation Rest of the conditions to be managed by the hospitalist team Yvette Vu MD Internal Medicine, PGY 1 [facility] Date of Service: May 14, 2025 Billing Provider: LAKISHA PEACOCK MD, SHIVANI, RES May 14, 2025 11:31
--- NOTE | 2025-05-14 14:16 | PROGRESS NOTE ---
Daily Progress Note Providers to CC Feels better today less pain, ~ Central Line/PICC still needed: No Posada-Non Protocol Posada Indications Met/Not Met: F/C Indications Not Met Antibiotic Timeout Antibiotic Ordered?: No MRSA Education MRSA Education Provided to pt: No Subjective As above Objective Vital Signs Date Time Temp Pulse Resp B/P (MAP) Pulse Ox O2 Delivery O2 Flow Rate FiO2 05/14/25 13:00 97.9 80 13 163/87 (112) 100 Nasal Cannula 1.0 Vital signs, stable ,afebrile. Pulse Oximetry reflects adequate oxygenation. BMI is 13, weight 36 kg General: Poorly developed and nourished cachectic. Awake , alert, and oriented x4, resting comfortably in the bed, in no acute distress . Skin: Warm, dry, no pallor, no rash or petechiae. HEENT: Atraumatic, normocephalic, EOMI, anicteric sclera B; pink conjunctiva; PERRLA, normal oropharynx, moist oral and nasal mucosa. Tympanic membrane , nose , throat clear. Neck: Trachea midline. Supple, full range of motion, no JVD, bruit , hepatojugular reflex , lymphadenopathy or masses, or other lesions Cardiac: Regular rhythm, regular rate no murmurs, rubs, or gallops. Normal S1 and S2, no S3 noticed. PMI is normal. Respiratory: Equal breath sounds bilaterally, no tachypnea; lungs clear to auscultation bilaterally, no wheezing ,rub or rales, or crackles. Chest wall is symmetric and without deformity. No signs of trauma. Chest wall is nontender. No signs of respiratory distress. Resonance is normal upon percussion bilaterally. Gastrointestinal: Abdomen symmetric, non-distended, soft, non-tender, normal bowel sounds x4 quadrant, normoactive, no hepatosplenomegaly , no masses , no bruit, no flank pain bilaterally. No voluntary guarding, rebound, or rigidity. No tenderness to percussion. No pulsatile masses. Equal femoral pulses. No Bateman's sign or McBurney point tenderness. Back; no CVA tenderness bilaterally, no deformities. Neck and back are without deformity as well. No tenderness noted on palpation of the spinous processes. Spinous processes are midline. Cervical, thoracic, and lumbar paraspinal muscles are not tender and are without spasm. Musculoskeletal: Extremities, normal range of motion, non-tender, muscle strength 5/5 x 4. Negative Homans signs bilaterally on lower extremity. Distal pulses full symmetrical, no clubbing, cyanosis , edema. Neurological: Speech is clear, alert, and oriented x 4. No motor or sensory deficit, deep tendon reflexes normal, cerebellar intact. Cranial nerves II-XII intact. Psych: Alert and or appropriate, normal affect. Vascular: Good distal pulses, which are equal x4; capillary refill less than 2 seconds. Lymphatic, no lymphadenopathy. Result Diagram: 05/14/25 0638 05/14/25637 Coagulation Studies Laboratory Tests Test 05/13/25 20:45 Prothrombin Time 13.4 SECONDS (9.0-12.0) H INR International Normalized Ratio 1.3 INR Activated Partial Thromboplast Time 26 SECONDS (22-32) D-Dimer 0.64 MG/L FEU (0-0.50) H D-Dimer Comment Coagulation Comments Problem\Assessment\Plan Assessment/ Plan Seizure disorder IV levetiracetam was given in the ER continue home med carbamazepine 200 mg b.i.d. follow up on carbamazepine levels Follow up on UDS Hypokalemia Potassium of 3.0 Replacement per protocol Gastroenteritis CT abd/pelvis: Gastric wall thickening. Wall thickening of fluid-filled nondistended small bowel loops. Postsurgical changes of small bowel. Gastroenteritis. Diffuse mesenteric edema. Diffuse anasarca. Albumin is 3.0 CBC showed elevated white count - 15.4, Lactate and procalcitonin are in normal limits Follow up on blood culture & stool studies IV ciprofloxacin 400 mg and IV Flagyl 500 mL q.12h Received 1 L of IV NS bolus and started on IV NS 100 mL/hr Patient has splenectomy, patient might need ID consult for the antibiotics, consult in the A.M Consult surgery in the morning in view of Gastric wall thickening. Wall thickening of fluid-filled nondistended small bowel loops. Diffuse mesenteric edema. Diffuse anasarca. Constipation Patient is unable to take oral medication CT abd shows Large bowel with moderate to large Amount of fecal material within the sigmoid and rectum. Mineral Oil edema daily prn Metabolic alkalosis 2/2 vomiting anion gap 11, bicarb 34, serum glucose 381 on presentation, A1c>12% IV Zofran for nausea/ vomiting PRN IV NS 100 mL/hr History of pancreatic divisum status post Whipple's Status post islet cell transplantation Diabetes mellitus anion gap 11, bicarb 34, serum glucose 381 on presentation, A1c>12% -she takes 11 units of Lantus at home -blood glucose in the ED was 400 and she received 8 units of subcu insulin -BMP does not look like she is having diabetic ketoacidosis -will monitor blood glucose, currently started on Lantus 10 units and low-dose supplemental insulin and if needed we will put her on insulin drip -Hyperglycemia/hypoglycemia protocol Failure to thrive Severe malnutrition BMI 13.2 Patient has Groshong catheter, Nutrition consult in the A.M and started on TPN History of multiple blood clots in the Groshong catheter, PICC line -she was on Eliquis at home Chronic pain syndrome patient said morphine does not work for her and only Dilaudid works for her patient has pain medication seeking behavior particularly for Dilaudid started on IV Dilaudid 1 mg q.4h History of duodenal ulcer Continue Protonix 40 mg IV Q24H Chronic COPD, not in exacerbation CT chest shows Mild upper lobe predominant emphysematous changes. Recommended outpatient management Microcytic hypochromic anemia H&H are 9.4/28.8, MCV 76, MCHC 32.8 H&H are stable Follow up on FOBT Med rec pending Code status: Full code DVT prophylaxis :Eliquis GI prophylaxis: Protonix Nutrition: Nutrition consult in the morning and start on TPN Physical therapy: yes Line/tube: PIV/Groshong catheter Analgesia/sedation: Dilaudid 1 mg q.4H Prognosis: Guarded Sepsis Screening Reassessment Date: May 14, 2025 Date of Service: May 14, 2025 Billing Provider: FERMÍN ISBELL MD Common Visit Codes: [id number] INP/OBS CARE(HIGH) FERMÍN ISBELL MD May 14, 2025 14:16
[2025-05-14] MEDS: thiamine 100mg/ml 2ml inj. IV SCH (16:30)
[2025-05-14] MEDS ORDERED: SODIUM PHOSPHATE IN D5W 260 ML IV PRN (16:50)
[2025-05-14] MEDS ORDERED: sodium phos 15mmol/D5 255mL 255 ML IV PRN (16:50)
[2025-05-14] MEDS: LIPASE/PROTEASE/AMYLASE 10,500 units CAPSULE.DR PO SCH (17:10)
[2025-05-14] MEDS: LIPASE/PROTEASE/AMYLASE 4,200 unit CAPSULE.DR PO SCH (17:10)
[2025-05-14 17:52] LABS: CREATININE 0.61 MG/DL (0.40-0.90); PHOSPHORUS 2.8 MG/DL (2.3-4.5); TOTAL CARBON DIOXIDE 26.2 MMOL/L (24-32); eCRCL 65 ML/MIN; eGFR > 90 ML/MIN
[2025-05-14] MEDS ORDERED: enoxaparin 40mg/0.4ml syringe SQ SCH (20:00)
[2025-05-14] MEDS: FAT EMUL/SOY/MCT/OLIV/FISH OIL (SMOF) 100 ML IV SCH (20:47)
[2025-05-14] MEDS: ZINC/COPPER/MANGANESE/SELENIUM 1 ML, chromic chloride inj. 10 MCG, MVI, adult No.4 with... IV SCH (20:50)
[2025-05-15] VITALS (7 sets, daily range): BP systolic 116–147; BP diastolic 78–91; PULSE 59–67; RESP 13–16; TEMP 97.2–98.5; O2SAT 95–99
[2025-05-15 06:21] LABS: MEAN PLATELET VOLUME 7.7 FL (7.4-10.4); RED CELL DISTRIBUTION WIDTH 21.7 % (11.5-14.5)
[2025-05-15 06:35] LABS: CREATININE 0.54 MG/DL (0.40-0.90); PHOSPHORUS 2.3 MG/DL (2.3-4.5); TOTAL CARBON DIOXIDE 26.1 MMOL/L (24-32); eCRCL 73 ML/MIN; eGFR > 90 ML/MIN
[2025-05-15] MEDS: lactulose 20gm/30ml cup PO SCH (08:40)
--- NOTE | 2025-05-15 08:46 | PROGRESS NOTE- Residence ---
Progress Note - Resident Providers to CC Resident Creating Document: YVETTE SIEGEL, JULIA ~ Central Line/PICC still needed: N\A Posada-Non Protocol Posada Indications Met/Not Met: F/C Indications Not Met Antibiotic Timeout Antibiotic Ordered?: No Subjective Patient was examined bedside. She is still complaining of abdominal pain, but better than yesterday. Epigastric region, 5/10, cramping intermittent, associated. She is drinking 1 cup of coffee every 4 hours. Not yet passed stools. Objective Vital Signs Date Time Temp Pulse Resp B/P (MAP) Pulse Ox O2 Delivery O2 Flow Rate FiO2 05/15/25 05:07 16 05/15/25 02:00 97.2 65 116/82 (93) 97 Room Air 05/14/25 13:10 0.0 Result Diagram: 05/15/25 0546 05/15/25 0546 Chronically ill, severely cachectic, malnourished, BMI of 13.2, thin and fragile, in mild distress Awake , alert and oriented to time,place, person, HEENT: Atraumatic, normocephalic, PERRLA, EOMI, anicteric sclera ; pink conjunctiva, moist mucos membranes Neck: Trachea midline. Supple, normal range of motion, no JVD, no lymphadenopathy Chest and Respiratory: Equal breath sounds bilaterally, no tachypnea, wheezing, ronchi,rubs .Chest wall is symmetric and without deformity. Cardiac: S1, S2 heard,Regular rate and rhythm, no murmurs ,no gallops, no rubs. Abdomen: Soft, mild tenderness on superficial palpation, No guarding or rigidity, Bateman's sign negative. normal bowel sounds x4 quadrant, no hepatosplenomegaly, large vertical scar in the abdomen MSK: Range of motion of all extremities are normal. There is no joint pain or joint swelling or joint erythema. There is no muscle pain or tenderness or swelling. Extremities: warm, well-perfused, No cyanosis, clubbing, 2+ pulses felt Neurological: Mental status exam: alert and consciousness, orientation, memory, speech No focal deficit, gross cranial nerve exam- normal Skin: Warm and dry Psychiatry: Affect and mood are normal Coagulation Studies Laboratory Tests Test 05/13/25 20:45 Prothrombin Time 13.4 SECONDS (9.0-12.0) H INR International Normalized Ratio 1.3 INR Activated Partial Thromboplast Time 26 SECONDS (22-32) D-Dimer 0.64 MG/L FEU (0-0.50) H D-Dimer Comment Coagulation Comments Counseling Services Smoking & Tobacco Cessation: N/A Advance Care Planning Advanced Care planning: N/A Plan Plan Assessment: This is a 49 yr old female with pancreatic divisum causing chronic pancreatitis s/p whipple's with chronic pancreatic insufficiency. She underwent endoscopy yesterday which showed a large ulcer with black necrotic base near the anastomotic site. The ulcer was not actively bleeding, but this might be the reason for her drop in hemoglobin. Biopsy from the ulcer margin was sent to histopathology, awaiting reports. There is high level of suspicion of malignancy due to the location and morphology of the ulcer. Dietitian was consulted yesterday, TPN was started. Drinking lots of coffee, no solid food yet. Still complaining of nausea with Reglan and Zofran, no vomiting since yesterday. She has a history of poor nutrition and self-care in the past. Plan: Continue TPN as per dietitian advice Continue IV protonix 40 mg bid Lactulose 20 g p.o. b.i.d. for constipation Rest of the conditions to be managed by the hospitalist team Yvette Siegel MD Internal Medicine, PGY 1 [facility] Date of Service: May 15, 2025 Billing Provider: LAKISHA PEACOCK MD, SHIVANI, RES May 15, 2025 08:46
[2025-05-15] MEDS ORDERED: diazepam inj 5 MG/ML inj. IV PRN (13:40)
[2025-05-15] MEDS: carBAMazepine Ext. Release 200 MG TAB.ER.12H PO SCH (16:21)
--- NOTE | 2025-05-15 17:59 | PROGRESS NOTE ---
Daily Progress Note Providers to CC Feels better today, tolerating TPN fine ~ Central Line/PICC still needed: No Posada-Non Protocol Posada Indications Met/Not Met: F/C Indications Not Met Antibiotic Timeout Antibiotic Ordered?: No MRSA Education MRSA Education Provided to pt: No Subjective As above Objective Vital Signs Date Time Temp Pulse Resp B/P (MAP) Pulse Ox O2 Delivery O2 Flow Rate FiO2 05/15/25 14:54 16 05/15/25 14:00 98.1 66 130/88 (102) 97 Room Air 05/14/25 13:10 0.0 Vital signs, stable ,afebrile. Pulse Oximetry reflects adequate oxygenation. BMI is 18, weight 49 kg General: well developed, well nourished. Awake , alert, and oriented x4, resting comfortably in the bed, in no acute distress . Skin: Warm, dry, no pallor, no rash or petechiae. HEENT: Atraumatic, normocephalic, EOMI, anicteric sclera B; pink conjunctiva; PERRLA, normal oropharynx, moist oral and nasal mucosa. Tympanic membrane , nose , throat clear. Neck: Trachea midline. Supple, full range of motion, no JVD, bruit , hepatojugular reflex , lymphadenopathy or masses, or other lesions Cardiac: Regular rhythm, regular rate no murmurs, rubs, or gallops. Normal S1 and S2, no S3 noticed. PMI is normal. Respiratory: Equal breath sounds bilaterally, no tachypnea; lungs clear to auscultation bilaterally, no wheezing ,rub or rales, or crackles. Chest wall is symmetric and without deformity. No signs of trauma. Chest wall is nontender. No signs of respiratory distress. Resonance is normal upon percussion bilaterally. Gastrointestinal: Abdomen symmetric, non-distended, soft, non-tender, normal bowel sounds x4 quadrant, normoactive, no hepatosplenomegaly , no masses , no bruit, no flank pain bilaterally. No voluntary guarding, rebound, or rigidity. No tenderness to percussion. No pulsatile masses. Equal femoral pulses. No Bateman's sign or McBurney point tenderness. Back; no CVA tenderness bilaterally, no deformities. Neck and back are without deformity as well. No tenderness noted on palpation of the spinous processes. Spinous processes are midline. Cervical, thoracic, and lumbar paraspinal muscles are not tender and are without spasm. : normal external genitalia, without lesions, swelling, masses or tenderness. Musculoskeletal: Extremities, normal range of motion, non-tender, muscle strength 5/5 x 4. Negative Homans signs bilaterally on lower extremity. Distal pulses full symmetrical, no clubbing, cyanosis , edema. Neurological: Speech is clear, alert, and oriented x 4. No motor or sensory deficit, deep tendon reflexes normal, cerebellar intact. Cranial nerves II-XII intact. Psych: Alert and or appropriate, normal affect. Vascular: Good distal pulses, which are equal x4; capillary refill less than 2 seconds. Lymphatic, no lymphadenopathy. Result Diagram: 05/15/25 0546 05/15/25 0546 Coagulation Studies Laboratory Tests Test 05/13/25 20:45 Prothrombin Time 13.4 SECONDS (9.0-12.0) H INR International Normalized Ratio 1.3 INR Activated Partial Thromboplast Time 26 SECONDS (22-32) D-Dimer 0.64 MG/L FEU (0-0.50) H D-Dimer Comment Coagulation Comments Problem\Assessment\Plan Assessment/ Plan Seizure disorder IV levetiracetam was given in the ER continue home med carbamazepine 200 mg b.i.d. follow up on carbamazepine levels Follow up on UDS Hypokalemia Potassium of 3.0 Replacement per protocol Gastroenteritis CT abd/pelvis: Gastric wall thickening. Wall thickening of fluid-filled nondistended small bowel loops. Postsurgical changes of small bowel. Gastroenteritis. Diffuse mesenteric edema. Diffuse anasarca. Albumin is 3.0 CBC showed elevated white count - 15.4, Lactate and procalcitonin are in normal limits Follow up on blood culture & stool studies IV ciprofloxacin 400 mg and IV Flagyl 500 mL q.12h Received 1 L of IV NS bolus and started on IV NS 100 mL/hr Patient has splenectomy, patient might need ID consult for the antibiotics, consult in the A.M Consult surgery in the morning in view of Gastric wall thickening. Wall thickening of fluid-filled nondistended small bowel loops. Diffuse mesenteric edema. Diffuse anasarca. EGD done completed Constipation Patient is unable to take oral medication CT abd shows Large bowel with moderate to large Amount of fecal material within the sigmoid and rectum. Mineral Oil edema daily prn Metabolic alkalosis 2/2 vomiting anion gap 11, bicarb 34, serum glucose 381 on presentation, A1c>12% IV Zofran for nausea/ vomiting PRN IV NS 100 mL/hr History of pancreatic divisum status post Whipple's Status post islet cell transplantation Diabetes mellitus anion gap 11, bicarb 34, serum glucose 381 on presentation, A1c>12% -she takes 11 units of Lantus at home -blood glucose in the ED was 400 and she received 8 units of subcu insulin -BMP does not look like she is having diabetic ketoacidosis -will monitor blood glucose, currently started on Lantus 10 units and low-dose supplemental insulin and if needed we will put her on insulin drip -Hyperglycemia/hypoglycemia protocol Failure to thrive Severe malnutrition BMI 13.2 Patient has Groshong catheter, Nutrition consult in the A.M and started on TPN History of multiple blood clots in the Groshong catheter, PICC line -she was on Eliquis at home Chronic pain syndrome patient said morphine does not work for her and only Dilaudid works for her patient has pain medication seeking behavior particularly for Dilaudid started on IV Dilaudid 1 mg q.4h History of duodenal ulcer Continue Protonix 40 mg IV Q24H Chronic COPD, not in exacerbation CT chest shows Mild upper lobe predominant emphysematous changes. Recommended outpatient management Microcytic hypochromic anemia H&H are 9.4/28.8, MCV 76, MCHC 32.8 H&H are stable Follow up on FOBT Med rec completed Code status: Full code DVT prophylaxis :Eliquis GI prophylaxis: Protonix Nutrition: Nutrition consult completed, start on TPN Physical therapy: yes Line/tube: PIV/Groshong catheter Analgesia/sedation: Dilaudid 1 mg q.4H Prognosis: Guarded Sepsis Screening Reassessment Date: May 15, 2025 Date of Service: May 15, 2025 Billing Provider: FERMÍN ISBELL MD Common Visit Codes: [id number] INP/OBS CARE(HIGH) FERMÍN ISBELL MD May 15, 2025 17:59
[2025-05-15] MEDS: oxyCODONE IR 5mg (immed. release) tablet PO PRN (21:30)
[2025-05-15] MEDS: lansoprazole 15mg solutab JT SCH (21:30)
[2025-05-15] MEDS: insulin regular, human 10 units/0.1 ml syringe SQ ONE (23:01)
[2025-05-15] MEDS: Insulin regular, human (NovoLIN R) inj ONE (23:03)
[2025-05-16 01:30] VITALS: BP 124/68; PULSE 60; RESP 16; TEMP 98; O2SAT 97
[2025-05-16] MEDS: insulin regular, human U-100 10ml vial - multi-dose SQ SCH ×2 (02:15→02:16)
[2025-05-16 06:00] VITALS: BP 140/86; PULSE 63; RESP 17; TEMP 98.3; O2SAT 98
[2025-05-16 07:00] LABS: MEAN PLATELET VOLUME 7.9 FL (7.4-10.4); RED CELL DISTRIBUTION WIDTH 21.6 % (11.5-14.5)
[2025-05-16 07:13] LABS: CREATININE 0.46 MG/DL (0.40-0.90); PHOSPHORUS 2.8 MG/DL (2.3-4.5); TOTAL CARBON DIOXIDE 28.1 MMOL/L (24-32); eCRCL 94 ML/MIN; eGFR > 90 ML/MIN
[2025-05-16 08:00] VITALS: RESP 17; O2SAT 98
[2025-05-16] MEDS: potassium Cl 40MEQ/1/2NS 520ml 520 ML IV PRN (08:11)
[2025-05-16 09:18] LABS: BASOPHILS % (MANUAL) 2.0 % (0-1); EOSINOPHILS % (MANUAL) 1.0 % (0-6); LYMPHOCYTES % (MANUAL) 27.0 % (21-51); MONOCYTES % (MANUAL) 10.0 % (2-12); NEUTROPHILS % (MANUAL) 60.0 % (42-75)
[2025-05-16 09:20] LABS: PLATELET ESTIMATE NORMAL
[2025-05-16 09:21] LABS: ELLIPTOCYTES FEW
[2025-05-16 10:00] VITALS: BP 139/81; PULSE 78; RESP 12; RESP 8; TEMP 98.3; O2SAT 96
--- NOTE | 2025-05-16 10:21 | PROGRESS NOTE- Residence ---
Progress Note - Resident Providers to CC Resident Creating Document: HAILEE VU RES ~ Antibiotic Timeout Antibiotic Ordered?: No Subjective Patient was examined bedside. Her abd pain is better. She is tolerating liquid diet. Nausea and vomiting well controlled with medication. She passed small quantity of loose stools today. Imaging shows large quantity of impacted stools in the bowel loops. She was educated that loose stools maybe from the stool impaction and not an actual bowel movement. She has been declining colace, lactulose and enema even after the education. It has been explained to her that these medication to stimulate her bowel movement will be available anytime she is ready to take it. Objective Vital Signs Date Time Temp Pulse Resp B/P (MAP) Pulse Ox O2 Delivery O2 Flow Rate FiO2 05/16/25 07:44 16 05/16/25 06:00 98.3 63 140/86 (104) 98 Room Air 05/14/25 13:10 0.0 Result Diagram: 05/16/25 0540 05/16/25 0540 Chronically ill, severely cachectic, malnourished, BMI of 13.2, thin and fragile, in mild distress Awake , alert and oriented to time,place, person, HEENT: Atraumatic, normocephalic, PERRLA, EOMI, anicteric sclera ; pink conjunctiva, moist mucos membranes Neck: Trachea midline. Supple, normal range of motion, no JVD, no lymphadenopathy Chest and Respiratory: Equal breath sounds bilaterally, no tachypnea, wheezing, ronchi,rubs .Chest wall is symmetric and without deformity. Cardiac: S1, S2 heard,Regular rate and rhythm, no murmurs ,no gallops, no rubs. Abdomen: Soft, mild tenderness on deep palpation, No guarding or rigidity, Bateman's sign negative. normal bowel sounds x4 quadrant, no hepatosplenomegaly, large vertical scar in the abdomen MSK: Range of motion of all extremities are normal. There is no joint pain or joint swelling or joint erythema. There is no muscle pain or tenderness or swelling. Extremities: warm, well-perfused, No cyanosis, clubbing, 2+ pulses felt Neurological: Mental status exam: alert and consciousness, orientation, memory, speech No focal deficit, gross cranial nerve exam- normal Skin: Warm and dry Psychiatry: Affect and mood are normal Coagulation Studies Laboratory Tests Test 05/13/25 20:45 Prothrombin Time 13.4 SECONDS (9.0-12.0) H INR International Normalized Ratio 1.3 INR Activated Partial Thromboplast Time 26 SECONDS (22-32) D-Dimer 0.64 MG/L FEU (0-0.50) H D-Dimer Comment Coagulation Comments Plan Plan Assessment: This is a 49 yr old female with pancreatic divisum causing chronic pancreatitis s/p whipple's with chronic pancreatic insufficiency. She underwent endoscopy yesterday which showed a large ulcer with black necrotic base near the anastomotic site with suspicion of malignancy due to the location and morphology of the ulcer. Dietitian was consulted yesterday, TPN was started. Drinking lots of coffee, no solid food yet. Still complaining of nausea with Reglan and Zofran, no vomiting since yesterday. She has a history of poor nutrition and self-care in the past. Plan: Continue TPN as per dietitian advice Continue IV protonix 40 mg bid Lactulose 20 g p.o. b.i.d. for constipation Awaiting histopath report. Rest of the conditions to be managed by the hospitalist team Hailee Vu MD Internal Medicine, PGY 1 [facility] Date of Service: May 16, 2025 Billing Provider: LAKISHA PEACOCK MD, SHIVANI, RES May 16, 2025 10:21
--- NOTE | 2025-05-16 16:50 | PROGRESS NOTE ---
Daily Progress Note Providers to CC Patient said that he will chronic pain is still in exacerbation, feels better if she continue her home medications including opioids Central Line/PICC still needed: No Posada-Non Protocol Posada Indications Met/Not Met: F/C Indications Not Met Antibiotic Timeout Antibiotic Ordered?: Yes MRSA Education MRSA Education Provided to pt: Yes Subjective As above Objective Vital Signs Date Time Temp Pulse Resp B/P (MAP) Pulse Ox O2 Delivery O2 Flow Rate FiO2 05/16/25 15:03 15 05/16/25 10:00 98.3 78 139/81 (100) 96 Room Air 05/14/25 13:10 0.0 Vital signs, stable ,afebrile. Pulse Oximetry reflects adequate oxygenation. General: well developed, well nourished. Awake , alert, and oriented x4, Skin: Warm, dry, no pallor, no rash or petechiae. HEENT: Atraumatic, normocephalic, EOMI, anicteric sclera B; pink conjunctiva; PERRLA, normal oropharynx, moist oral and nasal mucosa. Tympanic membrane , nose , throat clear. Neck: Trachea midline. Supple, full range of motion, no JVD, bruit , hepatojugular reflex , lymphadenopathy or masses, or other lesions Cardiac: Regular rhythm, regular rate no murmurs, rubs, or gallops. Normal S1 and S2, no S3 noticed. PMI is normal. Respiratory: Equal breath sounds bilaterally, no tachypnea; lungs clear to auscultation bilaterally, no wheezing ,rub or rales, or crackles. Chest wall is symmetric and without deformity. No signs of trauma. Chest wall is nontender. No signs of respiratory distress. Resonance is normal upon percussion bilaterally. Gastrointestinal: Abdomen symmetric, non-distended, soft, tender to palpation supraumbilically, normal bowel sounds x4 quadrant, normoactive, no hepatosplenomegaly , no masses , no bruit, no flank pain bilaterally. No voluntary guarding, rebound, or rigidity. No tenderness to percussion. No pulsatile masses. Equal femoral pulses. No Bateman's sign or McBurney point tenderness. Back; no CVA tenderness bilaterally, no deformities. Neck and back are without deformity as well. No tenderness noted on palpation of the spinous processes. Spinous processes are midline. Cervical, thoracic, and lumbar paraspinal muscles are not tender and are without spasm. : normal external genitalia, without lesions, swelling, masses or tenderness. Musculoskeletal: Extremities, normal range of motion, non-tender, muscle strength 5/5 x 4. Negative Homans signs bilaterally on lower extremity. Distal pulses full symmetrical, no clubbing, cyanosis , edema. Neurological: Speech is clear, alert, and oriented x 4. No motor or sensory deficit, deep tendon reflexes normal, cerebellar intact. Cranial nerves II-XII intact. Psych: Alert and or appropriate, normal affect. Vascular: Good distal pulses, which are equal x4; capillary refill less than 2 seconds. Lymphatic, no lymphadenopathy. Result Diagram: 05/16/25 0540 05/16/25 0540 Coagulation Studies Laboratory Tests Test 05/13/25 20:45 Prothrombin Time 13.4 SECONDS (9.0-12.0) H INR International Normalized Ratio 1.3 INR Activated Partial Thromboplast Time 26 SECONDS (22-32) D-Dimer 0.64 MG/L FEU (0-0.50) H D-Dimer Comment Coagulation Comments Problem\Assessment\Plan Assessment/ Plan Seizure disorder IV levetiracetam was given in the ER continue home med carbamazepine 200 mg b.i.d. follow up on carbamazepine levels Follow up on UDS Hypokalemia Potassium of 3.0 Replacement per protocol Gastroenteritis CT abd/pelvis: Gastric wall thickening. Wall thickening of fluid-filled nondistended small bowel loops. Postsurgical changes of small bowel. Gastroenteritis. Diffuse mesenteric edema. Diffuse anasarca. Albumin is 3.0 CBC showed elevated white count - 15.4, Lactate and procalcitonin are in normal limits Follow up on blood culture & stool studies IV ciprofloxacin 400 mg and IV Flagyl 500 mL q.12h Received 1 L of IV NS bolus and started on IV NS 100 mL/hr Patient has splenectomy, patient might need ID consult for the antibiotics, consult in the A.M Consult surgery in the morning in view of Gastric wall thickening. Wall thickening of fluid-filled nondistended small bowel loops. Diffuse mesenteric edema. Diffuse anasarca. EGD done completed Constipation Patient is unable to take oral medication CT abd shows Large bowel with moderate to large Amount of fecal material within the sigmoid and rectum. Mineral Oil edema daily prn Metabolic alkalosis 2/2 vomiting anion gap 11, bicarb 34, serum glucose 381 on presentation, A1c>12% IV Zofran for nausea/ vomiting PRN IV NS 100 mL/hr History of pancreatic divisum status post pancreatectomy Status post islet cell transplantation Chronic pain syndrome in exacerbation on opioids at home Diabetes mellitus anion gap 11, bicarb 34, serum glucose 381 on presentation, A1c>12% -she takes 11 units of Lantus at home -blood glucose in the ED was 400 and she received 8 units of subcu insulin -BMP does not look like she is having diabetic ketoacidosis -will monitor blood glucose, currently started on Lantus 10 units and low-dose supplemental insulin and if needed we will put her on insulin drip -Hyperglycemia/hypoglycemia protocol Failure to thrive Severe malnutrition BMI 13.2 Patient has Groshong catheter, Nutrition consult in the A.M and started on TPN History of multiple blood clots in the Groshong catheter, PICC line -she was on Eliquis at home Chronic pain syndrome patient said morphine does not work for her and only Dilaudid works for her patient has pain medication seeking behavior particularly for Dilaudid started on IV Dilaudid 1 mg q.4h History of duodenal ulcer Continue Protonix 40 mg IV Q24H Chronic COPD, not in exacerbation CT chest shows Mild upper lobe predominant emphysematous changes. Recommended outpatient management Microcytic hypochromic anemia H&H are 9.4/28.8, MCV 76, MCHC 32.8 H&H are stable Follow up on FOBT Med rec completed Code status: Full code DVT prophylaxis :Eliquis GI prophylaxis: Protonix Nutrition: Nutrition consult completed, start on TPN Physical therapy: yes Line/tube: PIV/Groshong catheter Analgesia/sedation: Dilaudid 1 mg q.4H Prognosis: Guarded Sepsis Screening Reassessment Date: May 16, 2025 Date of Service: May 16, 2025 Billing Provider: FERMÍN ISBELL MD Common Visit Codes: [id number] INP/OBS CARE(HIGH) FERMÍN ISBELL MD May 16, 2025 16:50
[2025-05-16 18:00] VITALS: BP 143/88; PULSE 64; RESP 16; TEMP 97.3; O2SAT 100
[2025-05-16] MEDS ORDERED: HYDROmorph/NS 0.2 mg/ml PCA 100 ML IV SCH (19:00)
[2025-05-16] MEDS: HYDROmorph/NS 0.2 mg/ml PCA 100 ML IV SCH (20:15)
[2025-05-16 22:00] VITALS: BP 147/90; PULSE 68; RESP 12; TEMP 98.5; O2SAT 99
[2025-05-17 06:00] VITALS: BP 113/71; PULSE 80; RESP 16; TEMP 97.8; O2SAT 99
[2025-05-17 06:04] LABS: MEAN PLATELET VOLUME 8.1 FL (7.4-10.4); RED CELL DISTRIBUTION WIDTH 21.7 % (11.5-14.5)
[2025-05-17 06:30] LABS: CREATININE 0.48 MG/DL (0.40-0.90); PHOSPHORUS 2.9 MG/DL (2.3-4.5); TOTAL CARBON DIOXIDE 26.7 MMOL/L (24-32); eCRCL 90 ML/MIN; eGFR > 90 ML/MIN
[2025-05-17 08:00] VITALS: RESP 16; O2SAT 96
[2025-05-17 10:00] VITALS: BP 103/70; PULSE 70; RESP 14; TEMP 97.8; O2SAT 99
[2025-05-17] MEDS: PCA WASTE DOCUMENTATION 1 MG ML MC SCH (14:00)
--- NOTE | 2025-05-17 19:26 | DISCHARGE SUMMARY ---
Discharge Summary Providers to CC Feels better today, elected to be discharged home ~ Discharge Summary Assessment Seizure disorder Status post pancreatectomy Hypokalemia Gastroenteritis acute Chronic constipation in exacerbation Metabolic alkalosis Diabetes mellitus type 2 History of islet cell transplantation pancreatic Nutrition Chronic pain syndrome Opioids addiction Chronic COPD Anemia Admission Diagnosis: seizure disorder Admission Diagnosis Comment: Seizure disorder Status post pancreatectomy Hypokalemia Gastroenteritis acute Chronic constipation in exacerbation Metabolic alkalosis Diabetes mellitus type 2 History of islet cell transplantation pancreatic Nutrition Chronic pain syndrome Opioids addiction Chronic COPD Anemia Hospital Course DATE OF ADMISSION: 2024 DATE OF DISCHARGE: 2024 Discharge Diagnosis\Comment: Seizure disorder Status post pancreatectomy Hypokalemia Gastroenteritis acute Chronic constipation in exacerbation Metabolic alkalosis Diabetes mellitus type 2 History of islet cell transplantation pancreatic Nutrition Chronic pain syndrome Opioids addiction Chronic COPD Anemia Operations\Procedures: egd Consultants: GI doctor Complications: None Condition on DC: Stable Discharge Summary: Patient is a 49 years chronically ill, cachectic female with multiple medical conditions (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 As per caregiver(boyfriend), At home patient was found down after having seizures and and postictal confusion. Patient does not know how long the seizure was lasted for. Patient reports she has seizure disorder and her last episode was this year in July 2024. She is taking carbamazepine. On arrival to ED patient is alert, oriented to time place and person with no postictal confusion. Patient reports that she has chronic abdominal pain but from the last 2 days she has inreased upper abdomen pain gradually worsened and diffuse, cramping type with severity of 7/10 in intensity radiating to back of the abdomen associated with nausea, vomiting and mild fever, chills. Patient is unable to keep anything down(food,water and medication) due to multiple episodes of vomiting. She also reports generalized weakness in the muscles and fatigue. Patient denies blood in the vomitus, dark stools, abdominal distention, chest pain, lightheadedness, swelling of legs. She is on Eliquis for past history of blood clots in the PICC line and Groshong catheter. Patient is severely cachectic and Groshong catheter is in right upper chest and plan to start TPN PCP: Dr. Mccormick at [facility] Dr. Stanley, the local operator She is waiting for appointment with the indoor plant technician Dr Cartagena in [facility] Today she is feeling better asking to be discharged home, she will be discharged in stable condition, follow-up PCP GI doctor, medication reconciled, today on physical exam Vital signs, stable ,afebrile. Pulse Oximetry reflects adequate oxygenation. BMI is 14 General: well developed, well nourished. Awake , alert, and oriented x4, resting comfortably in the bed, in no acute distress . Skin: Warm, dry, no pallor, no rash or petechiae. HEENT: Atraumatic, normocephalic, EOMI, anicteric sclera B; pink conjunctiva; PERRLA, normal oropharynx, moist oral and nasal mucosa. Tympanic membrane , no se , throat clear. Neck: Trachea midline. Supple, full range of motion, no JVD, bruit , hepatojugular reflex , lymphadenopathy or masses, or other lesions Cardiac: Regular rhythm, regular rate no murmurs, rubs, or gallops. Normal S1 and S2, no S3 noticed. PMI is normal. Respiratory: Equal breath sounds bilaterally, no tachypnea; lungs clear to auscultation bilaterally, no wheezing ,rub or rales, or crackles. Chest wall is symmetric and without deformity. No signs of trauma. Chest wall is nontender. No signs of respiratory distress. Resonance is normal upon percussion bilaterally. Gastrointestinal: Abdomen symmetric, non-distended, soft, non-tender, normal bowel sounds x4 quadrant, normoactive, no hepatosplenomegaly , no masses , no bruit, no flank pain bilaterally. No voluntary guarding, rebound, or rigidity. No tenderness to percussion. No pulsatile masses. Equal femoral pulses. No Bateman's sign or McBurney point tenderness. Back; no CVA tenderness bilaterally, no deformities. Neck and back are without deformity as well. No tenderness noted on palpation of the spinous processes. Spinous processes are midline. Cervical, thoracic, and lumbar paraspinal muscles are not tender and are without spasm. Musculoskeletal: Extremities, normal range of motion, non-tender, muscle strength 5/5 x 4. Negative Homans signs bilaterally on lower extremity. Distal pulses full symmetrical, no clubbing, cyanosis , edema. Neurological: Speech is clear, alert, and oriented x 4. No motor or sensory deficit, deep tendon reflexes normal, cerebellar intact. Cranial nerves II-XII intact. Psych: Alert and or appropriate, normal affect. Vascular: Good distal pulses, which are equal x4; capillary refill less than 2 seconds. Lymphatic, no lymphadenopathy. *Problems/Diagnosis: (1) Seizure Status: Acute (2) Hyponatremia Status: Acute (3) Diabetes mellitus Total Time Spent on D/C: > 30 Minutes Date of Service: May 17, 2025 Billing Provider: FERMÍN ISBELL MD Common Visit Codes: 01231-VYP/OBS DISCH DAY >30min FERMÍN ISBELL MD May 17, 2025 19:26
== END 2025-05-17 13:05 | disposition home health service (06) | DRG 100 ==
LOC: ER 15:12 → ED HOLD 20:01 → PCU 3S 22:53 → ORTHO 4S 05-15 14:10
PROVIDERS: ADMIT Internal Medicine; ATTEND Family Medicine
PROC: BW211ZZ Computerized Tomography (CT Scan) of Abdomen and Pelvis using Low Osmolar Contrast (ICD-10-PCS; 2025-05-13)
PROC: 0DB68ZX Excision of Stomach, Via Natural or Artificial Opening Endoscopic, Diagnostic (ICD-10-PCS; 2025-05-14)
PROC: 0DB98ZX Excision of Duodenum, Via Natural or Artificial Opening Endoscopic, Diagnostic (ICD-10-PCS; principal; 2025-05-14 12:40)
DX: G40.909 Epilepsy, unspecified, not intractable, without status epilepticus (principal); E43 Unspecified severe protein-calorie malnutrition; R64 Cachexia; E87.3 Alkalosis; K26.9 Duodenal ulcer, unspecified as acute or chronic, without hemorrhage or perforation; Z79.01 Long term (current) use of anticoagulants; F11.20 Opioid dependence, uncomplicated; E11.9 Type 2 diabetes mellitus without complications; D50.9 Iron deficiency anemia, unspecified; J44.89 Other specified chronic obstructive pulmonary disease; F32.A Depression, unspecified; E87.1 Hypo-osmolality and hyponatremia; Z68.1 Body mass index [BMI] 19.9 or less, adult; D64.9 Anemia, unspecified; E87.6 Hypokalemia; G43.909 Migraine, unspecified, not intractable, without status migrainosus; M54.9 Dorsalgia, unspecified; F17.210 Nicotine dependence, cigarettes, uncomplicated; G89.4 Chronic pain syndrome; K52.9 Noninfective gastroenteritis and colitis, unspecified; Z20.822 Contact with and (suspected) exposure to COVID-19; K21.00 Gastro-esophageal reflux disease with esophagitis, without bleeding; K59.09 Other constipation; Z86.718 Personal history of other venous thrombosis and embolism; Z87.11 Personal history of peptic ulcer disease; Z90.411 Acquired partial absence of pancreas; Z90.49 Acquired absence of other specified parts of digestive tract; Z90.81 Acquired absence of spleen; Z90.710 Acquired absence of both cervix and uterus; Z88.1 Allergy status to other antibiotic agents; Z88.5 Allergy status to narcotic agent; Z71.6 Tobacco abuse counseling
CPT/HCPCS: 36415; 43239; 71045; 71260; 74177; 80048; 80053; 80061; 80156; 80305; 81001; 81025; 82550; 82948; 83036; 83605; 83690; 83735; 83880; 83930; 84100; 84132; 84134; 84145; 84478; 84484; 85007; 85008; 85025; 85379; 85610; 85730; 87040; 87081; 87804; 87811; 96365; 96366; 97161; 97530; 99152; 99285; A4353; A4620; A6213; C1758; G0378; J0744; J1171; J1815; J1953; J2250; J2405; J2470; J3010; J3411; J3480; J3490; J7030; J7040; J7050; Q9967

== ENCOUNTER 2025-06-24 19:40 | Inpatient (IN) | payer MEDICARE, MEDICAID ==
[~2025-06-24] VITALS: Ht 157.5 cm; Wt 40.0 kg
[~2025-06-24 19:40] MED LIST changes: -DIPH25TA62 PO; +NICO-631 TD; +SODI1TAB2 PO; +UREA15PO PO
[2025-06-24 20:29] LABS: CREATININE 1.02 MG/DL (0.40-0.90); TOTAL CARBON DIOXIDE 19.0 MMOL/L (24-32); eCRCL 43 ML/MIN; eGFR 58 ML/MIN
[2025-06-24] MEDS: diazepam inj 5 MG/ML inj. IV ONE (20:40)
--- NOTE | 2025-06-24 20:46 | Physician Documentation ---
History of Present Illness ~ Chief Complaint: Seizure Stated Complaint: SEIZURES Time Seen by MD: 20:17 OK to notify your PCP?: Yes Primary Medical Doctor: Marcelino DEVINE Source: family, EMS Mode of Arrival: EMS HPI Patient presents via EMS after seizure witnessed by . reports that patient was in a grand mal like seizure for about 15-20 seconds. She has history of seizures and patient reports that she is on seizure medications. En route with EMS patient was postictal and agitated. Upon arrival to the ER she became more agitated and was vomiting. Nonverbal at this time. Medication Reconciliation Allergies: Coded Allergies: azithromycin (Verified Adverse Reaction, Intermediate, VOMITING, 04/10/25) Scheduled Apixaban (Eliquis), 1 TAB PO Q12H, (Reported) Buprenorphine Hcl (Buprenorphine Hcl), 1 TAB SL TID, (Reported) Carbamazepine (Tegretol Xr), 1 TAB PO TID, (Reported) Fluoxetine Hcl (Fluoxetine Hcl), 1 CAP PO DAILY, (Reported) Ibuprofen (Ibuprofen), 1 TAB PO TID, (Reported) Insulin Glargine,Hum.rec.anlog (Basaglar Kwikpen U-100), 11 UNITS SQ DAILY, (Rep orted) Lipase/Protease/Amylase (Creon Dr 36,000 Units Capsule), 1 CAP PO DAILY, (Reported) Nicotine 14 MG Patch* (Habitrol 14 MG Patch*), 1 PATCH TD DAILY Pantoprazole Sodium (Pantoprazole Sodium), 1 TAB PO BID, (Reported) Sodium Chloride (SODIUM CHLORIDE tablet), 1 GM PO BID Sucralfate (Sucralfate), 1 TAB JT QID, (Reported) Urea (Ure-Na), 15 GM PO DAILY Scheduled PRN Metoclopramide Hcl* (Metoclopramide Hcl*), 1 TAB PO QID PRN for abdominal etcher aircraft mps, (Reported) ONDANSETRON ODT 4mg tablet (Ondansetron Odt), 1 TAB PO Q6H PRN PRN for nause a/vomiting Oxycodone Hcl (Oxycodone Hcl), 1 TAB PO Q6H PRN for severe pain (7-10), (Reported) Past Medical History Past Medical History: Migraine, Seizures, Asthma, Peptic Ulcer Disease, Diabetes, Chronic Back Pain, Extremity Fracture, Depression Past Surgical History: cholecystectomy, hysterectomy, other Other Past Surgical History: Pancreatectomy, Islet pancreatic cell transplant, Whipple, splenectomy Patient History: Patient reports no known family medical history. Alcohol Use: None Drug Use: marijuana Lives with: S/O Lives In: Home Occupation: unemployed Review of Systems ROS Unable to obtain. Physical Exam Vital Signs: Weight: 39.950 Physical Exam General: Appears post-ictal, sleeping but arousable, moving all extremities, no signs of head trauma. Head: Normocephalic and atraumatic. Eyes: Conjunctival normal. EOMI. PERRL. ENT: Mucous membranes moist. Neck: Supple, trachea is midline. Chest: Clear to auscultation bilaterally without rales, rhonchi, or wheezes. There is no accessory muscle use or retractions. Cardiac: RRR without murmurs, gallops, or rubs. Abd: Soft, nondistended, nontender, with normoactive bowel sounds. No guarding, rebound, or rigidity. Extremities: Normal strength. Normal range of motion. No deformities or edema. Back: No midline spinal or CVA tenderness. Skin: Warm and dry with no significant rash appreciated. Neuro: Cranial nerves II-XII grossly intact. No facial asymmetry. Progress Progress Note 2143: pt becoming more cooperative. 2227: paging hospitalist. 2305: resident hospitalist agrees to evaluate for admission. Results/Orders Results/Orders Orders - KYLER ALBERT MD Hcg, Ur Ql (06/24/25 19:45) Straight Cath For Urine Sample (06/24/25 19:45) * Implement/Maintain Seizure P (06/24/25 19:45) Ct Head (06/24/25 21:01) Dressing Orders (06/24/25 22:25) Completed Orders - KYLER ALBERT MD CMP (06/24/25 19:45) Levetiracetam-[id number]/100ml (Levetira (06/24/25 20:15) Diazepam Inj (Valium Inj) (06/24/25 20:25) Ct Head (06/24/25 21:01) Normal Saline 1000ml (0.9% Sodium Chlori (06/24/25 21:05) Ondansetron Inj. (Zofran 4mg/2ml Vial) (06/24/25 21:10) Man Diff (06/24/25 20:54) Bacitracin Ointment (Bacitracin Ointment (06/24/25 22:25) Midazolam 5 Mg/Ml 2ml Inj (Versed 5 Mg/M (06/24/25 22:30) Procalcitonin (06/24/25 22:27) Ethanol (06/24/25 20:01) MG (06/24/25 20:01) CK (06/24/25 20:01) Medications Received in ER Medications (Trade) Dose Ordered Sig/Kiko Route PRN Reason Start Time Stop Time Status Last Admin Dose Admin Levetiracetam 100 ml @ 400 mls/hr ONCE ONCE IV 06/24/25 20:15 06/24/25 20:29 DC 06/24/25 20:55 400 MLS/HR (Valium inj) 5 mg ONCE ONCE IV 06/24/25 20:25 06/24/25 20:26 DC 06/24/25 20:40 5 MG Sodium Chloride 1,000 ml @ 1,000 mls/hr ONCE ONCE IV 06/24/25 21:05 06/24/25 22:04 DC 06/24/25 22:00 1,000 MLS/HR (Zofran 4mg/2ml vial) 4 mg ONCE ONCE IV 06/24/25 21:10 06/24/25 21:11 DC 06/24/25 21:16 4 MG (Versed 5 MG/ML 2ML inj) 5 mg ONCE ONCE IV 06/24/25 22:30 06/24/25 22:31 DC 06/24/25 22:32 5 MG Vital Signs 06/24/25 06/24/25 20:59 21:03 Pulse 86 Resp 19 B/P (MAP) 131/77 (95) Pulse Ox 97 Laboratory Tests Test 06/24/25 20:01 06/24/25 20:54 CBC Comment Sodium Level 138 Potassium Level 4.7 Chloride Level 101 Carbon Dioxide Level 19.0 L Anion Gap 18 H Blood Urea Nitrogen 3 L Creatinine 1.02 H Estimated GFR/1.73 m2 58 BUN/Creatinine Ratio 2.9 L Glucose Level 334 H Calcium Level 9.0 Magnesium Level 2.1 Total Bilirubin 0.2 Aspartate Amino Transf (AST/SGOT) 49 H Alanine Aminotransferase (ALT/SGPT) 16 Alkaline Phosphatase 165 H Total Creatine Kinase 63 Total Protein 7.1 Albumin 3.0 L Globulin 4.1 Albumin/Globulin Ratio 0.7 L Procalcitonin < 0.05 Chemistry Comments Ethyl Alcohol Level < 10 White Blood Count 15.5 H Red Blood Count 3.30 L Hemoglobin 7.7 L Hematocrit 25.4 L Mean Corpuscular Volume 76.8 L Mean Corpuscular Hemoglobin 23.4 L Mean Corpuscular Hemoglobin Concent 30.5 L Red Cell Distribution Width 20.0 H Platelet Count 365 Mean Platelet Volume 6.8 L Neutrophils (%) (Auto) 79.6 H Lymphocytes (%) (Auto) 1.9 L Monocytes (%) (Auto) 17.5 H Eosinophils (%) (Auto) 0.2 Basophils (%) (Auto) 0.8 Neutrophils # (Auto) 12.4 H Lymphocytes # (Auto) 0.3 L Monocytes # (Auto) 2.7 H Eosinophils # (Auto) 0.0 Basophils # (Auto) 0.1 Differential Total Cells Counted 100 Neutrophils % (Manual) 88.0 H Band Neutrophils % 1.0 Lymphocytes % (Manual) 4.0 L Monocytes % (Manual) 7.0 Platelet Estimate Normal Red Blood Cell Morphology Perf Hypochromasia 1+ Basophilic Stippling Anisocytosis 2+ Microcytosis 1+ Target Cells Few Tear Drop Cells Few Baltic Cells 1+ Elliptocytes Few Acanthocytes 1+ Schistocytes Few EKG/XRAY/CT/US/VASC/MRI CT : Interpreted By: radiologist CT: head With Contrast?: No Impression COMPUTERIZED TOMOGRAPHY OF THE HEAD WITHOUT CONTRAST REASON FOR STUDY: Altered mental status COMPARISON: CT CT FACIAL BONES/SOFT TISSUE on DOS: 01/23/24 TECHNIQUE: Helical tomographic scans were obtained through the brain. 2-D coronal and sagittal reformatted images are provided. Radiation optimization: All CT scans at this facility use at least one of these dose optimization techniques: Automated exposure control mA and/or kV adjustment per patient size (includes targeted exams where dose is matched to clinical indication) or iterative reconstruction. RADIATION DOSE: CTDI: 62 mGy DLP: 1662 mGy-cm FINDINGS: Evaluation is degraded by motion artifact. No suspicious intracranial hyperdensity to suggest acute blood. There is no mass effect nor midline shift. There is no hydrocephalus. The suprasellar cistern is intact. The calvarium is intact. The visualized mastoid air cells and paranasal sinuses are clear. IMPRESSION: No acute intracranial abnormality. Electronically Signed by:JULES KAY MD Date & Time: 06/24/252242 Dictated by: JULES KAY MD Dictation date and time: 06/24/252242 Primary Care Provider: NO PRIMARY CARE PROVIDER cc: KYLER ALBERT MD ~ Medical Decision Making Additional information obtaine: old records Findings Patient presents to the emergency with seizure-like activity as per HPI. Patient continues to be altered and may be suffering from prolonged postictal. Although upon review of patient's labs she is suffering from acute kidney injury. IV fluids initiated. CT scan reassuring. We will admit for further treatment. Noted leukocytosis however I feel this is a stress response and that has not represent infectious process although infectious process such as meningitis and urinary tract infection were considered. Differential Dx:Considerations: Include: Hyperventilation, Psychogenic seizure, Due to alcohol withdrawl, Anticonvulsant withdrawl, Due to closed head injury, Due to CVA/TIA, Due to drug ingestion, Due to eclampsia, Due to hypocalcemia, Due to hypoglycemia, Due to hyponatremia, Due to hypoxemia, Idiopathic, Due to mass lesion, Due to meningitis, Syncope, Encephalopathy, Epilepsy-break through, Epilepsy-status, Other Departure Time of Disposition: 22:27 Disposition: ADMITTED INPATIENT Admitted to Inpatient Unit: yes, to hospitalist Impression: Primary Impression: RODO (acute kidney injury) Additional Impression: Prolonged postictal state Condition: Guarded Referrals: NO PRIMARY CARE PROVIDER (PCP) Signature Scribe Signature: Scribed for Kyler Albert MD by Debbi Lopez . 06/24/25 21:04 Attestation: The note accurately reflects work and decisions made by me.Kyler Albert MD 06/25/25 02:39 KYLER ALBERT MD Jun 24, 2025 20:46 DEBBI ALEXANDRA Jun 24, 2025 21:07
[2025-06-24] MEDS: levetiracetam-NACL1000mg/100ml 100 ML IV ONE (20:55)
[2025-06-24 21:10] LABS: MEAN PLATELET VOLUME 6.8 FL (7.4-10.4); RED CELL DISTRIBUTION WIDTH 20.0 % (11.5-14.5)
[2025-06-24] MEDS: ondansetron/PF 4mg/2ml inj IV ONE (21:16)
[2025-06-24] MEDS: normal saline 1000ml 1,000 ML IV ONE (22:00)
[2025-06-24 22:31] LABS: BANDS% (MANUAL) 1.0 % (0-10); LYMPHOCYTES % (MANUAL) 4.0 % (21-51); MONOCYTES % (MANUAL) 7.0 % (2-12); NEUTROPHILS % (MANUAL) 88.0 % (42-75)
[2025-06-24 22:32] LABS: PLATELET ESTIMATE NORMAL
[2025-06-24] MEDS: MIDAZolam 5mg/ml 2ml vial IV ONE (22:32)
[2025-06-24] MEDS ORDERED: magnesium hydroxide 30ml (MOM) UD suspension PO PRN (22:35)
[2025-06-24] MEDS ORDERED: potassium Cl 20 mEq SR tablet PO PRN (22:35)
[2025-06-24] MEDS ORDERED: magnesium sulf-water 4G/100mL 100 ML IV PRN (22:35)
[2025-06-24] MEDS ORDERED: magnesium sulf-water 2g/50mL 50 ML IV PRN (22:35)
[2025-06-24] MEDS ORDERED: potassium Cl 40MEQ/1/2NS 520ml 520 ML IV PRN (22:35)
[2025-06-24] MEDS ORDERED: mag hydrox/Alum hydrox/simeth 30ml oral suspension PO PRN (22:35)
[2025-06-24] MEDS ORDERED: magnesium Cl slow-release 64mg tablet PO PRN (22:35)
[2025-06-24 22:37] LABS: ELLIPTOCYTES FEW
[2025-06-24 22:41] LABS: ETHANOL < 10 MG/DL (<10)
--- NOTE | 2025-06-24 22:46 | RADIOLOGY REPORT ---
COMPUTERIZED TOMOGRAPHY OF THE HEAD WITHOUT CONTRAST REASON FOR STUDY: Altered mental status COMPARISON: CT CT FACIAL BONES/SOFT TISSUE on DOS: 01/23/24 TECHNIQUE: Helical tomographic scans were obtained through the brain. 2-D coronal and sagittal reformatted images are provided. Radiation optimization: All CT scans at this facility use at least one of these dose optimization techniques: Automated exposure control mA and/or kV adjustment per patient size (includes targeted exams where dose is matched to clinical indication) or iterative reconstruction. RADIATION DOSE: CTDI: 62 mGy DLP: 1662 mGy-cm FINDINGS: Evaluation is degraded by motion artifact. No suspicious intracranial hyperdensity to suggest acute blood. There is no mass effect nor midline shift. There is no hydrocephalus. The suprasellar cistern is intact. The calvarium is intact. The visualized mastoid air cells and paranasal sinuses are clear. IMPRESSION: No acute intracranial abnormality.
[2025-06-24] MEDS: bacitracin 15gm ointment TP ONE (22:59)
[2025-06-24] MEDS ORDERED: DEXTROSE 15 GM of carb/4 tabs (each vial/BOTTLE has 4 tablets) PO PRN (23:25)
[2025-06-24] MEDS ORDERED: dextrose 50%-water 50ml dispensing syringe IV PRN (23:25)
[2025-06-24] MEDS ORDERED: glucagon, human recombinant 1mg kit SUBCUT PRN (23:25)
[2025-06-24] MEDS ORDERED: diazepam inj 5 MG/ML inj. IV PRN (23:30)
--- NOTE | 2025-06-24 23:49 | [facility] CONSULT REPORT ---
[facility] Procedure Note [facility] Procedure Note Consult [facility] Note # Demographics Consult Type: General Neurology Patient Location: Emergency Room First Name: Svetlana Last Name: Idris Date of : 1975 Age: 49 Gender: Female Facility: [facility] Time of Initial Page (): 06/24/2025 23:35 First Contact with Site ( Time): 06/24/2025 23:36 # HPI History: Here with seizures - known epilepsy. Now sedated and not actively seizing in ED> # Exam Additional Neurologic Exam: sleeping. opens eyes to stimulation and looks around room and says " what" but not much speech. arms and legs are symmetric and some posntaneous non rhythmic movements. # PMH-FH-SH Past Medical History: - seizure Medications: carbamazepine. # Assessment Impression: - Seizure post ictal. EEG if not improving towards baseline. Observe until back to baseline. Check carbamazepine level and ensure therapeutic. Check for toxometabolic causes of breakthrough seizure. # Plan Other: - If patient has any neurological deterioration please call me back immediately - I have discussed my recommendations with the referring provider - seizure precautions Additional Recommendations: do not drive until cleared by local team # Logistics Attestation of consult completion: The patient is located at: [facility]. Facility staff participated in the visit. I performed this telemedicine visit from my offsite office utilizing interactive 2 way audio and visual telecommunication technology at the request of the onsite emergency room provider. Total time spent in telemedicine encounter: I spent 21 minutes reviewing clinical data and/or imaging, obtaining history, examining the patient, communicating with the onsite care team, and in preparation of this report. # Demographics First Name: Svetlana Last Name: Idris Facility: [facility] Electronically signed at 06/24/2025 23:48 () by Austin Mcmanus MD Neuro Consult Order placed for: Yes MARGARITA MCMANUS MD Jun 24, 2025 23:49
--- NOTE | 2025-06-24 23:49 | [facility] NEURO CONSULT REPORT ---
[facility] # Demographics Consult Type: General Neurology Patient Location: Emergency Room First Name: Svetlana Last Name: Idris Date of : 1975 Age: 49 Gender: Female Facility: [facility] [place] [facility] Time of Initial Page (): 06/24/2025 23:35 First Contact with Site (): 06/24/2025 23:36 # HPI History: Here with seizures - known epilepsy. Now sedated and not actively seizing in ED> # Exam Additional Neurologic Exam: sleeping. opens eyes to stimulation and looks around room and says " what" but not much speech. arms and legs are symmetric and some posntaneous non rhythmic movements. # PMH-FH-SH Past Medical History: - seizure Medications: carbamazepine. # Assessment Impression: - Seizure post ictal. EEG if not improving towards baseline. Observe until back to baseline. Check carbamazepine level and ensure therapeutic. Check for toxometabolic causes of breakthrough seizure. # Plan Other: - If patient has any neurological deterioration please call me back immediately - I have discussed my recommendations with the referring provider - seizure precautions Additional Recommendations: do not drive until cleared by local team # Logistics Attestation of consult completion: The patient is located at: [facility]. Facility staff participated in the visit. I performed this telemedicine visit from my offsite office utilizing interactive 2 way audio and visual telecommunication technology at the request of the onsite emergency room provider. Total time spent in telemedicine encounter: I spent 21 minutes reviewing clinical data and/or imaging, obtaining history, examining the patient, communicating with the onsite care team, and in preparation of this report. # Demographics First Name: Svetlana Last Name: Idris Facility: [facility] Electronically signed at 06/24/2025 23:48 () by Austin Csoby MD
[2025-06-25] VITALS (8 sets, daily range): BP systolic 140–158; BP diastolic 84–93; PULSE 70–98; RESP 14–22; TEMP 96.5–98.7; O2SAT 92–100
--- NOTE | 2025-06-25 00:11 | HISTORY AND PHYSICAL-Residence ---
History & Physical Providers to CC Resident Creating Document: ESTEFANIA ROCHA, RES ~ History of Present Illness Primary Medical Doctor: Jace/PETR DEVINE Reason for Admit\Complaint: Altered level of consciousness History of Present Illness Patient is a 49-year-old female who is very poor historian and we tried to contact his boyfriend but successful and with a known history of epilepsy on carbamazepine and type 1 diabetes mellitus who presented to the Emergency Department via EMS after a witnessed seizure. History according to ED- Per , the patient experienced a generalized tonic-clonic (grand mal- like) seizure lasting approximately 1520 seconds. Patient is a very poor historian, and attempts to contact her boyfriend for additional history were unsuccessful. En route, EMS reported the patient was postictal and agitated. Upon arrival to the ED, she remained agitated, nonverbal, and was actively vomiting, but able to follow commands. Initial Shirley Coma Scale was 15. Blood glucose on arrival was 218 mg/dL. No additional history regarding medication compliance, recent illness, or seizure triggers is available at this time. In ED-patient was very agitated and sedated the patient We tried to contact her boyfriend but it was unsuccessful-we will again re- attempt in the a.m. As per previous records PCP: Dr. Mccormick at [facility] Dr. Stanley, the supply chain planner She is waiting for appointment with the digital production artist Dr Cartagena in [facility] Allergies: Coded Allergies: azithromycin (Verified Adverse Reaction, Intermediate, VOMITING, 04/10/25) Home Medications Home Medications Active SODIUM CHLORIDE tablet (Sodium Chloride) 1,000 Mg Tablet 1 Gm PO BID 30 Days Ure-Na (Urea) 15 Gram Powd.pack 15 Gm PO DAILY 10 Days Habitrol 14 MG Patch* (Nicotine) 1 Each Patch.td24 1 Patch TD DAILY 30 Days Ondansetron Odt (Ondansetron HCl) 4 Mg Tab.rapdis 1 Tab PO Q6H PRN PRN 4 Days Reported Pantoprazole Sodium 40 Mg Tablet. 1 Tab PO BID Buprenorphine Hcl 8 Mg Tab.subl 1 Tab SL TID Sucralfate 1 Gram Tablet 1 Tab JT QID Creeugene Pittman 36,000 Units Capsule (Lipase/Protease/Amylase) 36K-114K Capsule.dr 1 Cap PO DAILY Basaglar Kwikpen U-100 (Insulin Glargine,Hum.rec.anlog) 100 Unit/Ml (3 Ml) Insuln.pen 11 Units SQ DAILY Eliquis (Apixaban) 5 Mg Tablet 1 Tab PO Q12H Fluoxetine Hcl 40 Mg Capsule 1 Cap PO DAILY Tegretol Xr (Carbamazepine) 200 Mg Tab.er.12h 1 Tab PO TID Metoclopramide Hcl* (Metoclopramide HCl) 10 Mg Tablet 1 Tab PO QID PRN Oxycodone Hcl 10 Mg Tablet 1 Tab PO Q6H PRN Past Medical History Past Medical History Per records History of pancreatic divisum status post Whipple's with splenectomy and cholecystectomy with sparing of pylorus DM secondary to pancreatectomy Status post J-tube,followed by G-tube removed 6 weeks ago duodenal ulcer Chronic pain syndrome Status post islet stem cell transplant Epilepsy Multiple blood clots in her picc line and Groshong catheter, and that is the reason she is on Eliquis History of Pseudomonas aeruginosa bacteremia of Groshong catheter Past Surgical History Surgical History Comment Status post Whipple's with cholecystectomy and splenectomy Family History Family History: Patient reports no known family medical history. Past Social History Social History Comment Patient is a poor historian and tried to contact her boyfriend but it was unsuccessful Per records- Smokes about one and half pack of cigarette a day, more than 20 pack years Denies alcohol intake Smokes marijuana frequently Lives in her home with her farm butcher (boyfriend) Independent for ADLs Smoking: Cigarettes Alcohol Use: None Drug Use: Marijuana Lives with: S/O Lives In: Home Occupation: unemployed ROS Unable to obtain: altered mental status Exam Vitals: Vital Signs Date Time Temp Pulse Resp B/P (MAP) Pulse Ox O2 Delivery O2 Flow Rate FiO2 06/24/25 22:58 82 12 149/87 (107) 97 0 General: Physical examination is limited as patient is agitated later on she was sedated General-patient is sedated, malnourished HEENT: Atraumatic, normocephalic, EOMI, anicteric sclera ; mild pale conjunctiva Neck: Trachea midline. Supple, full range of motion, no JVD Cardiac: Regular rhythm, regular rate with no murmurs all over the precordium. Respiratory: Equal breath sounds bilaterally, no tachypnea, no wheezing ,rub or rales, port present on chest Gastrointestinal: Abdomen symmetric, non-distended, soft, non-tender, normal bowel sounds x4 quadrant, normoactive, no hepatosplenomegaly Musculoskeletal: No pedal edema Neurological: Patient is sedated Skin: Warm and dry Extremities : No Edema, peripheral pulses felt, No deformities Diagnostic Data Last Recorded Lab Results: 06/25/2552606/25/25526 Advance Care Planning Advanced Care plannin - 30 Minutes Additional Plan 49 years old female with history of epilepsy is currently evaluated for altered level of consciousness Altered level of consciousness 2/2 post seizure Patient had generalized tonic-clonic seizure 15 seconds per and since then he was not postictal confusion in ED patient received 1 dose of levetiracetam and Valium and currently patient is sedated because she was agitated IV levetiracetam and Valium 5 mg was given in ED, patient is currently sedated with midazolam CT head without contrast-rule out acute intracranial abnormality Lactic acid is elevated 3.4 and already received a bolus in ED-started on maintance fluids Consulted tele neurology recommended continuation of carbamazepine and also recommended EEG if patient still is confused or actively seizing continue home med carbamazepine 200 mg t.i.d. follow up on carbamazepine levels, lactic, CK follow up with U tox Acute kidney injury likely renal tubular stasis Electrolyte is normal BUN-3, creatinine 1.02 Started IV normal saline 80 cc/hour Follow up with spot urine studies Leukocytosis Cause under evaluation Patient is having elevated WBC count 15.5, procalcitonin normal Follow up with urinalysis, blood culture, lactic acid Microcytic hypochromic anemia H&H-7.7/25.4, MCV 76.8 Follow up with iron studies Transfuse PRBC if HGB is less than sinus 7 Monitor hemoglobin History of pancreatic divisum status post Whipple's Status post islet cell transplantation Diabetes mellitus type C Patient is having metabolic acidosis, glucose in 300 and Lactic acids is elevated HbA1c more than 12 05/13/2025 Started medium dose hyperglycemia/hypoglycemia protein with 10 units Lantus Follow up with urine ketone, ABG Moderate malnutrition BMI 16.1 Per records Patient has Groshong catheter and recieved TPN during last hospital admission at that time BMI is 13.3 so we consulted Nutrition, Patient is currently sedated Metabolic acidosis with anion gap 18 likley due to lactic acidosis-started patient on maintenance fluids History of multiple blood clots in the Groshong catheter, PICC line Patient takes Eliquis at home, continue Eliquis after med rec History of duodenal ulcer Continue Protonix 40 mg IV Q24H Pending med rec- Code Status: Full by default DVT prophylaxis: SCDs, start Eliquis after med rec Analgesia/Sedation: Morphine Line/tube: Peripheral PT: Ordered Prognosis: Guarded Disposition: Patient will be monitored in ortho, tele neurology already consulted and they recommended continuation of carbamazepine. Tried to contact her boyfriend but it was unsuccessful and patient is also sedated. History is with incomplete, tried to contact her boyfriend in a.m. his contact number is [phone] Estefania Rocha PGY1-Internal Medicine Resident Addendum I personally reviewed the chart, labs and imaging and reviewed the patient with the team. I agree with the assessment and plan as documented by the resident. Patient was seen through remote audio-visual assessment through HIPAA compliance setup. Date of Service: Jun 24, 2025 Billing Provider: PETER SAXENA MD, SATISH, RES Jun 25, 2025 00:11 PETER SAXENA MD Jun 25, 2025 16:14
[2025-06-25 00:35] LABS: ABG BASE EXCESS 1.1 mmol/L (-2.0-3.0); ABG HCO3 24.4 mmol/L (21.0-28.0); ABG OXYGEN SATURATION 95.6 % (94.0-98.0); ABG PCO2 (T) 32.9 mmHg (32.0-45.0); ABG PH (T) 7.487 (7.350-7.450); ABG PO2 (T) 75.4 mmHg (83.0-108.0); ALLEN'S TEST POSITIVE; FCOHb 1.6 % (0.5-1.5); FHHb 4.3 % (0.0-5.0); FIO2 21.0 mmHg/%; FMetHb 0.0 % (0.0-1.5); FO2Hb 94.1 % (94.0-98.0); PATIENT TEMPERATURE 36.6; TOTAL HEMOGLOBIN 8.7 G/dl (12.0-16.0)
[2025-06-25] MEDS: carbamazepine 100mg ER CAPSULE (12-hour) PO ONE (00:35)
[2025-06-25] MEDS ORDERED: IBUP-1986 PO (01:20)
[2025-06-25 01:43] LABS: % IRON SATURATION 3 % (11-46)
[2025-06-25] MEDS: INSULIN LISPRO 100 UNIT/ML INSULN.PEN MULTI-DOSE SQ ONE (02:51)
[2025-06-25] MEDS: insulin glargine (Lantus) pen - multi-dose SQ SCH (02:51)
[2025-06-25] MEDS: normal saline 1000ml 1,000 ML IV SCH (02:53)
[2025-06-25] MEDS: INSULIN LISPRO 100 UNIT/ML INSULN.PEN MULTI-DOSE SQ SCH (02:54)
[2025-06-25 04:03] LABS: CREATININE,URINE RANDOM 11.0 MG/DL; TOTAL PROTEIN,URINE RANDOM 9.7 MG/DL
[2025-06-25 04:04] LABS: URINE HCG NEGATIVE (NEG)
[2025-06-25 04:05] LABS: URINE AMPHETAMINE SCREEN NEGATIVE (Neg); URINE BARBITUATE SCREEN NEGATIVE (Neg); URINE BENZODIAZEPINES SCREEN POSITIVE (Neg); URINE CANNABINOID SCREEN POSITIVE (Neg); URINE COCAINE SCREEN NEGATIVE (Neg); URINE METHADONE SCREEN NEGATIVE (Neg); URINE OPIATE SCREEN NEGATIVE (Neg); URINE PHENCYCLIDINE SCREEN NEGATIVE (Neg)
[2025-06-25 04:12] LABS: LEUKOCYTE ESTERASE ,URINE NEGATIVE (Neg); NITRITES, URINE NEGATIVE (Neg); OCCULT BLOOD,URINE NEGATIVE (Neg)
[2025-06-25 04:13] LABS: OSMOLALITY UA 446.0 MOSM/K (50-1400)
[2025-06-25 04:32] LABS: UA COLLECTION TYPE CLN CATCH MIDSTREAM
[2025-06-25 04:35] LABS: SQUAMOUS EPITHELIAL CELL,UR NONE SEEN /LPF (FEW)
[2025-06-25 05:22] LABS: UA EOSINOPHILS NO EOS /HPF
[2025-06-25 06:03] LABS: MEAN PLATELET VOLUME 7.0 FL (7.4-10.4); RED CELL DISTRIBUTION WIDTH 20.0 % (11.5-14.5)
[2025-06-25 06:29] LABS: CREATININE 0.71 MG/DL (0.40-0.90); TOTAL CARBON DIOXIDE 28.8 MMOL/L (24-32); eCRCL 62 ML/MIN; eGFR 88 ML/MIN
[2025-06-25] MEDS ORDERED: INSULIN LISPRO 100 UNIT/ML INSULN.PEN MULTI-DOSE SQ SCH (07:00)
[2025-06-25] MEDS: docusate sod 100mg capsule PO SCH (08:00)
[2025-06-25] MEDS: K and/or MAG REPLACEMENT MC SCH (08:00)
[2025-06-25] MEDS: DEXTROSE 15 GM of carb/4 tabs (each vial/BOTTLE has 4 tablets) PO PRN (08:21)
[2025-06-25] MEDS: levetiracetam inj 750 MG in normal saline 100ml IV soln 100 ML IV SCH (09:35)
[2025-06-25] MEDS: potassium Cl 20 mEq SR tablet PO PRN (10:06)
--- NOTE | 2025-06-25 11:42 | RADIOLOGY REPORT ---
CHEST RADIOGRAPH Indication: concern for aspiration Technique: Single frontal view of the chest was obtained COMPARISON: DI CHEST,SINGLE VIEW on DOS: 05/13/25, DI CHEST,SINGLE VIEW on DOS: 08/06/24, DI CHEST,SINGLE VIEW on DOS: 07/11/24, DI CHEST,SINGLE VIEW on DOS: 06/30/24, DI CHEST,SINGLE VIEW on DOS: 01/23/24 FINDINGS: Lines and Tubes: Tunneled right PICC in satisfactory position overlying the superior vena cava. Lungs: Increased interstital prominence. This may represent pulmonary vascular congestion and/or viral pneumonia. Pleura: No effusion. No pneumothorax. Cardiomediastinal contours: Unremarkable Bones: Unremarkable IMPRESSION: Increased interstitial prominence. This may represent pulmonary vascular congestion and/or viral pneumonia.
[2025-06-25] MEDS: ondansetron/PF 4mg/2ml inj IV PRN (20:00)
[2025-06-25] MEDS: carBAMazepine Ext. Release 200 MG TAB.ER.12H PO SCH (20:12)
[2025-06-25] MEDS: dextrose 50%-water 50ml dispensing syringe IV PRN (21:05)
[2025-06-26] VITALS (7 sets, daily range): BP systolic 126–160; BP diastolic 64–107; PULSE 85–96; RESP 15–17; TEMP 97.1–98.9; O2SAT 97–99
[2025-06-26] MEDS: oxyCODONE IR 5mg (immed. release) tablet PO PRN ×2 (01:48→14:48)
[2025-06-26 04:48] LABS: MEAN PLATELET VOLUME 7.4 FL (7.4-10.4)
[2025-06-26 04:51] LABS: RED CELL DISTRIBUTION WIDTH 20.3 % (11.5-14.5)
[2025-06-26 05:04] LABS: CREATININE 0.47 MG/DL (0.40-0.90); TOTAL CARBON DIOXIDE 26.0 MMOL/L (24-32); eCRCL 93 ML/MIN; eGFR > 90 ML/MIN
[2025-06-26] MEDS: LIPASE/PROTEASE/AMYLASE 10,500 units CAPSULE.DR PO SCH (08:25)
--- NOTE | 2025-06-26 15:02 | PROGRESS NOTE- Residence ---
Progress Note - Resident Providers to CC Resident Creating Document: SHARON HIGGINBOTHAM RES ~ Antibiotic Timeout Antibiotic Ordered?: No Subjective Patient was evaluated at bedside in the presence of the attending physician, resident, and nurse. She has returned to her baseline status and denies any symptoms, including headache, nausea, vomiting, focal neurological deficits, chest pain, fever, shortness of breath, or productive cough. According to the caregiver, the patient experienced a seizure lasting approximately 10 seconds and has not been taking her medication as prescribed. No additional complaints were reported. Objective Vital Signs Date Time Temp Pulse Resp B/P (MAP) Pulse Ox O2 Delivery O2 Flow Rate FiO2 06/26/25 10:00 98.9 86 15 139/90 (106) 98 Room Air 06/25/25 01:45 0 21 Result Diagram: 06/26/2540706/26/25 040 Awake , alert, and oriented x4, cachectic HEENT: Atraumatic, normocephalic, EOMI, anicteric sclera ; pale conjunctiva; dry mucous membranes Neck: Trachea midline. Supple, full range of motion, no JVD Cardiac: Regular rhythm, regular rate with no murmurs all over the precordium. Respiratory: Equal breath sounds bilaterally, no tachypnea, no wheezing ,rub or rales, Chest wall is symmetric and without deformity. Gastrointestinal: Abdomen symmetric, non-distended, soft, non-tender, normal bowel sounds x4 quadrant, normoactive, no hepatosplenomegaly Musculoskeletal: No pedal edema Neurological: Mental status exam: alert and consciousness, orientation, memory, speech - Cranial nerve test: Cranial nerves 2-12 intact - Motor system: Normal Nutrition, normal tone, Power 5/5, no involuntary movements - Sensory system: Intact - Reflex testing: Biceps, triceps and knee reflexes 2+ - Cerebellar: Normal Skin: Warm and dry Plan Plan Assessment 49-year-old female patient admitted after a breakthrough seizure, for further evaluation management. 1. Breakthrough generalized tonic-clonic seizure due to medication nonadherence Postictal encephalopathy - resolved Assessment - Known history of epilepsy on carbamazepine. History of multiple hospitalizations. - Likely due to medication non-compliance, low carbamazepine serum level - No focal neurological deficits noted on limited exam. - Head CT: No acute intracranial abnormality. - CXR: Increased interstitial prominence. - urinalysis remarkable, procalcitonin normal Plan - Tele-neurology consulted; EEG recommended if patient does not return to baseline. - Continue home carbamazepine 200 mg PO TID; check serum level. - started on Keppra IV b.i.d. - Seizure precautions. - EEG if patient does not return to baseline or if recurrent seizures occur. - Monitor for neurological deterioration; call neurology if changes occur. 2. Uncontrolled type 1 diabetes mellitus (secondary to pancreatectomy) - HbA1c >12 (05/2025), now 10.3 - Continue Lantus 10 units at bedtime if appropriate oral intake - hyper/hypoglycemia protocol 3. Acute kidney injury likely due to vasomotor nephropathy Leukocytosis (WBC 15.5) secondary to dehydration Lactic acidosis - Creatinine 1.02, BUN 3; likely related to dehydration and lactic acidosis. - lactic acid 3.4 - continue NS at 80 mL/hour . - Monitor BMP, urine output. 4. Severe iron-deficiency anemia - Hgb 7.7, MCV 76.8 - Iron 15, ferritin 9, TIBC 457 - continue IV iron replacement - Transfuse PRBC if Hgb <7 g/dL. - Monitor CBC daily. 5. Moderate malnutrition - BMI 16.1; history of TPN and pancreatic surgery. - Albumin 2.7 - Nutrition consult placed. - oral diet as tolerated 6. History of pancreatic divisum s/p Whipple, chronic pain syndrome, multiple prior clots (on Eliquis), duodenal ulcer - Continue Eliquis 5mg BID - Continue pancreatic enzyme supplement - pain management with oxycodone every 8 hours as needed - Continue Protonix 40 mg IV daily for ulcer prophylaxis. Code Status: Full code DVT prophylaxis: Eliquis Analgesia/Sedation: Oxycodone Line/tube: Peripheral PT: Pending Prognosis: Guarded Disposition: Continue medical treatment. Patient was seen, examined and discussed with the attending physician Dr Bowens Date of Service: Jun 25, 2025 Billing Provider: CARLITO BOWENS MD, LUCAS, JULIA Jun 26, 2025 15:02
--- NOTE | 2025-06-26 15:09 | PROGRESS NOTE- Residence ---
Progress Note - Resident Providers to CC Resident Creating Document: SHARON HIGGINBOTHAM RES ~ Antibiotic Timeout Antibiotic Ordered?: No Subjective Patient was evaluated at bedside in the presence of the attending physician, resident, and nurse. She has returned to her baseline status and denies symptoms such as headache, nausea, vomiting, focal neurological deficits, chest pain, fever, shortness of breath, or productive cough. However, the patient is currently refusing to ambulate or eat. She expressed dissatisfaction with her current treatment and was verbally uncooperative during the encounter. Patient was going to be discharged but refused to eat, drink or ambulate. Objective Vital Signs Date Time Temp Pulse Resp B/P (MAP) Pulse Ox O2 Delivery O2 Flow Rate FiO2 06/26/25 10:00 98.9 86 15 139/90 (106) 98 Room Air 06/25/25 01:45 0 21 Result Diagram: 06/26/25 0408 06/26/25 0408 Awake , alert, and oriented x4, cachectic HEENT: Atraumatic, normocephalic, EOMI, anicteric sclera ; pale conjunctiva; dry mucous membranes Neck: Trachea midline. Supple, full range of motion, no JVD Cardiac: Regular rhythm, regular rate with no murmurs all over the precordium. Respiratory: Equal breath sounds bilaterally, no tachypnea, no wheezing ,rub or rales, Chest wall is symmetric and without deformity. Gastrointestinal: Abdomen symmetric, non-distended, soft, non-tender, normal bowel sounds x4 quadrant, normoactive, no hepatosplenomegaly Musculoskeletal: No pedal edema Neurological: Mental status exam: alert and consciousness, orientation, memory, speech - Cranial nerve test: Cranial nerves 2-12 intact - Motor system: Normal Nutrition, normal tone, Power 5/5, no involuntary movements - Sensory system: Intact - Reflex testing: Biceps, triceps and knee reflexes 2+ - Cerebellar: Normal Skin: Warm and dry Plan Plan Assessment 49-year-old female patient admitted after a breakthrough seizure, for further evaluation management. 1. Breakthrough generalized tonic-clonic seizure due to medication nonadherence Postictal encephalopathy - resolved Assessment - Known history of epilepsy on carbamazepine. History of multiple hospitalizations. - Likely due to medication non-compliance, low carbamazepine serum level - No focal neurological deficits noted on limited exam. - Head CT: No acute intracranial abnormality. - CXR: Increased interstitial prominence. - urinalysis remarkable, procalcitonin normal Plan - patient refused to eat/drink and ambulate, ordered EEG - Continue home carbamazepine 200 mg PO TID; - discontinue Keppra and observe - Seizure precautions. 2. Uncontrolled type 1 diabetes mellitus (secondary to pancreatectomy) - HbA1c >12 (05/2025), now 10.3 - Continue Lantus 10 units at bedtime if appropriate oral intake - hyper/hypoglycemia protocol 3. Acute kidney injury likely due to vasomotor nephropathy -resolved Leukocytosis (WBC 15.5) secondary to dehydration - resolved Lactic acidosis - improving - Creatinine 0.47, down from 1.02, BUN 3; likely related to dehydration and lactic acidosis. - Lactic acid: 3.4 -> 2.7 -> 2.8 - continue NS at 80 mL/hour . - Monitor BMP, urine output. 4. Severe iron-deficiency anemia - Hgb 7.7, MCV 76.8 - Iron 15, ferritin 9, TIBC 457 - continue IV iron replacement - Transfuse PRBC if Hgb <7 g/dL. - Monitor CBC daily. 5. Moderate malnutrition - BMI 16.1; history of TPN and pancreatic surgery. - Albumin 2.7 - Nutrition consult placed. - oral diet as tolerated 6. History of pancreatic divisum s/p Whipple, chronic pain syndrome, multiple prior clots (on Eliquis), duodenal ulcer - Continue Eliquis 5mg BID - Continue pancreatic enzyme supplement - pain management with oxycodone every 8 hours as needed - Continue Protonix 40 mg IV daily for ulcer prophylaxis. Code Status: Full code DVT prophylaxis: Eliquis Analgesia/Sedation: Oxycodone Line/tube: Peripheral PT: Pending Prognosis: Guarded Disposition: Continue medical treatment. Possible discharge tomorrow. She was stable for discharge today but refused to eat and ambulate. Patient was seen, examined and discussed with the attending physician Dr Bowens Addendum Patient was seen today in presence of nursing staff Lynnette , resident Dr. Irizarry and myself, was not in any acute distress looked comfortable. I wished her Merry Blessing to the patient she never responded . She is asking for narcotic pain medication for her headache which is ongoing trend for her from her previous visits. She was verbally abusive to me and mentioned that she does not like me and asked if anybody likes me? I updated her about her current labs and workup. She mentioned she do not want to see me she wants different doctor. I told her that I am doing my due diligence and doing my job . I mentioned to her that we are planning to discharge her today as patient is alert awake oriented not confused anymore and her labs are back to baseline. As per nursing staff she is refusing to eat and ambulate. She refused for physical therapy today. Further workup ordered and we will re-evaluate her in AM . Charge Nurse Tin hernandez regarding current situation. Date of Service: Jun 26, 2025 Billing Provider: CARLITO BOWENS MD, LUCAS, JULIA Jun 26, 2025 15:09 CARLITO BOWENS MD Jun 26, 2025 17:58
[2025-06-26] MEDS: sodium ferric gluc complex inj 125 MG in normal saline 100ml IV soln 100 ML IV SCH (16:39)
--- NOTE | 2025-06-26 19:43 | [facility] CONSULT REPORT ---
[facility] Procedure Note [facility] Procedure Note Consult [facility] Note # Demographics Type of EEG Read: - Routine EEG - video Patient Location: Inpatient First Name: Svetlana Last Name: Idris Date of : 1975 Age: 49 Gender: Female Facility: [facility] Time of Initial Page (): 06/26/2025 17:31 First Contact with Site (): 06/26/2025 17:32 # EEG Interpretation Start Time of EEG Read (): 06/26/2025 18:05 Stop Time of EEG Read (): 06/26/2025 18:25 Duration: 0h 20m Technical Details: - The EEG electrodes were placed using the standard International 10-20 system of electrode placement. Video and an accessory EKG lead were used during the course of this study. - This study was recorded using the [employer] EEG software Indication: - seizure # Description Photic Stimulation: NOT Performed Hyperventilation: NOT performed Phases Captured: - drowsy Symmetry: symmetric Posterior Dominant Rhythm: poorly defined Predominant Frequencies: - theta (4-7 Hz) - continuous (>90%) Amplitude: normal Reactivity: yes Variability: yes Continuity: continuous # Abnormalities Epileptiform Abnormalities: - NOT present Focal Slowing: no Seizure: - NOT present # Impression Impression: abnormal Diffuse Slowing # Clinical Correlation Clinical Correlation: Diffuse slowing is non-specific and may be seen in the setting of diffuse cerebral dysfunction; such as toxic/metabolic/infectious encephalopathy or heavily sedating medication use. # Demographics First Name: Svetlana Last Name: Idris Facility: [facility] Neuro Consult Order placed for: Yes GINA PINEDA MD Jun 26, 2025 19:43
[2025-06-26] MEDS: pantoprazole 40mg Tablet.DR PO SCH (20:49)
[2025-06-26] MEDS ORDERED: insulin glargine (Lantus) pen - multi-dose SQ SCH (21:00)
[2025-06-26] MEDS ORDERED: ondansetron/PF 4mg/2ml inj IM ONE (21:55)
[2025-06-26] MEDS: ondansetron/PF 4mg/2ml inj IV ONE (22:19)
[2025-06-26] MEDS ORDERED: HYDROmorphone inj. 0.5 MG/0.5 ML DISP.SYRIN IM ONE (23:40)
[2025-06-27] MEDS: HYDROmorphone inj. 0.5 MG/0.5 ML DISP.SYRIN IV ONE (00:49)
[2025-06-27 05:56] LABS: MEAN PLATELET VOLUME 7.9 FL (7.4-10.4); RED CELL DISTRIBUTION WIDTH 19.9 % (11.5-14.5)
[2025-06-27 06:00] VITALS: BP 142/86; PULSE 97; RESP 13; TEMP 98.3; O2SAT 99
[2025-06-27 06:09] LABS: CREATININE 0.62 MG/DL (0.40-0.90); TOTAL CARBON DIOXIDE 23.7 MMOL/L (24-32); eCRCL 71 ML/MIN; eGFR > 90 ML/MIN
[2025-06-27 06:59] LABS: PLATELET ESTIMATE INCREASED
[2025-06-27 08:00] VITALS: RESP 13; O2SAT 99
[2025-06-27 10:00] VITALS: BP 166/102; PULSE 69; RESP 16; TEMP 97.6; O2SAT 99
[2025-06-27] MEDS: metoclopramide 5 mg/ml inj IV ONE (10:02)
[2025-06-27 10:53] VITALS: RESP 14
--- NOTE | 2025-06-27 14:31 | DISCHARGE SUMMARY-Residence ---
Discharge Summary Providers to CC Resident Creating Document: SHARON HIGGINBOTHAM RES ~ Discharge Summary Admission Diagnosis: TONIC CLONIC SEIZURE Hospital Course DATE OF ADMISSION: DATE OF DISCHARGE: Discharge Diagnosis\\Comment: 1. Breakthrough generalized tonic-clonic seizure due to medication nonadherence Postictal encephalopathy - resolved 2. 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 Acute kidney injury likely due to vasomotor nephropathy -resolved Leukocytosis (WBC 15.5) secondary to dehydration - resolved Lactic acidosis - improving 4. Iron-deficiency anemia 5. Moderate malnutrition 6. History of pancreatic divisum s/p Whipple, chronic pain syndrome, multiple prior clots (on Eliquis), duodenal ulcer Operations\\Procedures: None Consultants: Neurology Complications: None Condition on DC: Stable Discharge Summary: History of present illness Patient was admitted with the following HPI: "Patient is a 49-year-old female who is very poor historian and we tried to contact his boyfriend but successful and with a known history of epilepsy on carbamazepine and type 1 diabetes mellitus who presented to the Emergency Department via EMS after a witnessed seizure. Per , the patient experienced a generalized tonic-clonic (grand mal-like) seizure lasting approximately 1520 seconds. Patient is a very poor historian, and attempts to contact her boyfriend for additional history were unsuccessful. En route, EMS reported the patient was postictal and agitated. Upon arrival to the ED, she remained agitated, nonverbal, and was actively vomiting, but able to follow commands. Initial Shirley Coma Scale was 15. Blood glucose on arrival was 218 mg/dL. No additional history regarding medication compliance, recent illness, or seizure triggers is available at this time." Hospital course 49-year-old female patient with a history of multiple hospitalization was admitted after a breakthrough seizure most likely due to medication adherence. She was started on Keppra IV and resumed carbamazepine. Patient returned to her baseline status and denied any further neurological symptoms, including headache, nausea, vomiting, focal neurological deficits, chest pain, fever, shortness of breath, or productive cough. According to the caregiver, the patient experienced a seizure lasting approximately 10 seconds and has not been taking her medication as prescribed. She has chronic pain, yesterday refusing to ambulate or eat. She expressed dissatisfaction with her current treatment and was verbally uncooperative during the encounter. Patient has no other active medical problem and is stable to be discharged with outpatient follow-up. 06/26/25-Patient was seen today in presence of nursing staff Lynnette , resident Dr. Irizarry and myself ( Dr Bowens ) was not in any acute distress looked comfortable. I wished her Merry Tofte to the patient she never responded . She is asking for narcotic pain medication for her headache which is ongoing trend for her from her previous visits. She was verbally abusive to me and mentioned that she does not like me and asked if anybody likes me? I updated her about her current labs and workup. She mentioned she do not want to see me she wants different doctor. I told her that I am doing my due diligence and doing my job . I mentioned to her that we are planning to discharge her today as patient is alert awake oriented not confused anymore and her labs are back to baseline. As per nursing staff she is refusing to eat and ambulate. She refused for physical therapy today. Further workup ordered and we will re-evaluate her in AM . Charge Nurse Tin aware regarding current situation. 06/27/25-patient wanted to get Dilaudid before her discharge her boyfriend was present in visit. She again refused for physical therapy today. Liquid drink present on her table which she is able to take by mouth Chest x-ray Increased interstitial prominence. This may represent pulmonary vascular congestion and/or viral pneumonia. Head CT No acute intracranial abnormality. EEG Epileptiform Abnormalities: - NOT present Seizure: - NOT present Diffuse Slowing # Clinical Correlation Clinical Correlation: Diffuse slowing is non-specific and may be seen in the setting of diffuse cerebral dysfunction; such as toxic/metabolic/infectious encephalopathy or heavily sedating medication use. Discharge physical exam Awake , alert, and oriented x4, cachectic HEENT: Atraumatic, normocephalic, EOMI, anicteric sclera ; pale conjunctiva; dry mucous membranes Neck: Trachea midline. Supple, full range of motion, no JVD Cardiac: Regular rhythm, regular rate with no murmurs all over the precordium. Respiratory: Equal breath sounds bilaterally, no tachypnea, no wheezing ,rub or rales, Chest wall is symmetric and without deformity. Gastrointestinal: Abdomen symmetric, non-distended, soft, non-tender, normal bowel sounds x4 quadrant, normoactive, no hepatosplenomegaly Musculoskeletal: No pedal edema Neurological: Mental status exam: alert and consciousness, orientation, memory, speech - Cranial nerve test: Cranial nerves 2-12 intact - Motor system: Normal Nutrition, normal tone, Power 5/5, no involuntary movements - Sensory system: Intact - Reflex testing: Biceps, triceps and knee reflexes 2+ - Cerebellar: Normal Skin: Warm and dry Discharge medications See below Discharge instructions Follow-up with your primary care physician in 1-2 weeks Follow-up with neurology for medication adjustment Continue home medication, especially carbamazepine Ensure adequate hydration Come back in case of new seizures, fever, productive cough or any concerning symptoms. Further management of uncontrolled type 2 diabetes per primary care physician in outpatient setting. s/p Duodenal resection with gastrojejunostomy follow-up with specialist provider in [facility] for gastrojejunostomy issues. Recommended to stop tobacco and cannabis . Read the side effects of all your medication and discuss with the provider whoever is prescribing those medications. She needs to see her GI specialist in outpatient setting. Patient needs to follow with the account executive trainee in outpatient setting . Activity as tolerated. *Problems/Diagnosis: (1) Seizure Status: Acute Total Time Spent on D/C: > 30 Minutes Date of Service: Jun 27, 2025 Billing Provider: CARLITO BOWENS MD Common Visit Codes: 29054-AEJ/OBS DISCH DAY >30min SHARON HIGGINBOTHAM, JULIA Jun 27, 2025 14:29 CARLITO BOWENS MD Jun 27, 2025 18:26
== END 2025-06-27 11:45 | disposition home health service (06) | DRG 100 ==
LOC: ER 19:41 → ED HOLD 22:39 → ORTHO 4S 06-25 01:32
PROVIDERS: ADMIT Internal Medicine Sleep Medicine; ATTEND Internal Medicine
PROC: 4A00X4Z Measurement of Central Nervous Electrical Activity, External Approach (ICD-10-PCS; principal; 2025-06-24)
PROC: 4A00X4Z Measurement of Central Nervous Electrical Activity, External Approach (ICD-10-PCS; 2025-06-26)
DX: G40.409 Other generalized epilepsy and epileptic syndromes, not intractable, without status epilepticus (principal); N17.0 Acute kidney failure with tubular necrosis; E44.0 Moderate protein-calorie malnutrition; E87.20 Acidosis, unspecified; D50.0 Iron deficiency anemia secondary to blood loss (chronic); E10.9 Type 1 diabetes mellitus without complications; F32.A Depression, unspecified; Z79.01 Long term (current) use of anticoagulants; J45.909 Unspecified asthma, uncomplicated; Z68.1 Body mass index [BMI] 19.9 or less, adult; G89.4 Chronic pain syndrome; G43.909 Migraine, unspecified, not intractable, without status migrainosus; Z87.11 Personal history of peptic ulcer disease; Z90.710 Acquired absence of both cervix and uterus; Z90.81 Acquired absence of spleen; Z88.1 Allergy status to other antibiotic agents; Z79.4 Long term (current) use of insulin; Z79.899 Other long term (current) drug therapy; Z90.49 Acquired absence of other specified parts of digestive tract; Z91.148 Patient's other noncompliance with medication regimen for other reason
CPT/HCPCS: 36415; 36600; 70450; 71045; 80053; 80156; 80305; 80320; 81001; 81025; 82550; 82570; 82728; 82803; 82948; 83036; 83540; 83550; 83605; 83735; 83935; 84133; 84145; 84156; 84300; 84466; 85007; 85008; 85018; 85025; 85651; 86885; 86900; 86901; 87040; 87081; 87207; 92508; 92616; 95816; 96374; 96375; 99285; A6213; A6258; G0378; J1171; J1815; J1953; J2250; J2270; J2405; J2470; J2765; J2916; J3360; J3490; J7030